=== PATIENT | male | born 1985 | race Caucasian/White ===

== ENCOUNTER 2020-07-13 17:45 | Inpatient (IN) | payer MEDICARE, OTHER ==
[~2020-07-13] VITALS: Ht 185.4 cm; Wt 127.0 kg
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
--- OUTSIDE RECORDS SUMMARY | ~2020-07-13 | XMS | Encounter Summary ---
Demographics + + + | Address | [address] | | | [place] [address] | + + + | Home Phone | | + + + | Preferred Language | Unknown | + + + | Marital Status | Single | + + + | Hindu Affiliation | Unknown | + + + | Race | White | + + + | Ethnic Group | Not or | + + + Author + + + | Author | [facility] | | | and [place] | + + + | Organization | [facility] | | | and [...] | | | | | [place] [address] | | + + + + + Care Team Providers + +------+ + | Care In Home Nanny Name | Role | Phone | + +------+ + | Chance Dudley MD | PCP | | + +------+ + Reason for Visit + + + | Reason | Comments | + + + | Medication Refill | | + + + Encounter Details +--------+--------+ + + + | Date | Type | Department | Care Team | Description | +--------+--------+ + + + | 06/29/ | Refill | [facility] | Chance Dudley, | Medication Refill | | 2019 | | [facility] | [address] | | | | | [address] | [place] | | | | | [place], [place] | [address] | | | | | [address] | | | | | | [phone] | | | +--------+--------+ + + + Social History + +-------+ [...] Comments | + + +---------+ + | No | | | | + + +---------+ + + + + | Sex Assigned at | Date Recorded | | | | + + + | Not on file | | + + + documented as of this encounter Functional Status + + + [...] + + documented as of this encounter Plan of Treatment +--------+---------+ + + + | Date | Type | Specialty | Care Team | Description | +--------+---------+ + + + | 07/22/ | Office | Family Medicine | Chance Dudley, | | | 2019 | Visit | | MD [address] | | | | | | [place] | | | | | | [address] | | | | | | | | +--------+---------+ + + + documented as of this encounter Visit Diagnoses Not on filedocumented in this encounter"
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
--- OUTSIDE RECORDS SUMMARY | ~2020-07-13 | XMS | Encounter Summary ---
Demographics + + + | Address | [address] | | | [place] [address] | + + + | Home Phone | | + + + | Preferred Language | Unknown | + + + | Marital Status | Single | + + + | Christian Affiliation | Unknown | + + + | Race | White | + + + | Ethnic Group | Not or | + + + Author + + + | Author | [facility] | | | and [place] | + + + | Organization | [facility] | | | [...] | | | | | [place] [address] | | + + + + + Care Team Providers + +------+ + | Care Wool Fleece Sorter Name | Role | Phone | + +------+ + | Cash Dudley MD | PCP | | + +------+ + Reason for Visit + +--------+ + | Reason | Onset | Comments | | | Date | | + +--------+ + | Appointment | 06/19/ | | | | 2012 | | + +--------+ + Encounter Details +--------+ + + + + | Date | Type | Department | Care Team | Description | +--------+ + + + + | 06/19/ | Telephone | [facility] | Cash Dudley, | Appointment | | 2012 | | MEDICINE [place] | [address] | | | | | [address] | [place], [place] | | | | | [place], [place] | [address] | | | | | [address] | | | | | | [phone] | | | +--------+ + + + + Social History + +-------+ +--------+------+ | Tobacco Use | Types | Packs/Day | Years | Date | | | | | Used | | + +-------+ +--------+------+ | Never Smoker | | | | | + +-------+ +--------+------+ + + +---------+ + | Alcohol Use | Drinks/Week | oz/Week | Comments | + + +---------+ + | Yes | | | Weekends | + + +---------+ + + + + | Sex Assigned at | Date Recorded | | | | + + + | Not on file | | + + + documented as of this encounter Miscellaneous Notes Telephone Encounter - Chaparrita Bruno - 06/22/2013 8:58 AM PDTLeft patient message to return our call. elephone Francine Ramirez - 06/21/2013 3:47 PM PDTCalled and left a message. Patient needs to s chedule a DM follow up 30 minutes and visit with Corine also. Francine Flores elephone Encounter - Samantha Nicole LPN - 06/21/2013 3:37 PM PDTCalled and notified patient. He was happy to reschedule so transferred call but then he hung up. Asked vest front presser to call patient.Electr onically signed by Samantha Taveras LPN at 06/21/2013 3:37 PM PDTTelephone Encounter - Raul Foster 06/20/2013 9:10 AM PDTCalled the patient and left a message to call back.Kwasi limay signed by Raul Foster at 06/20/2013 9:13 AM PDTTelephone Encounter - Cash Dudley MD - 06/19/2013 6:01 PM PDTDo you mind calling Stiven and checking in on him. Please ask him to reschedule. Ideally would like a time that he can also meet with Corine or Florinda to discu ss his prediabetes. Thanks, Saurabh Dudley MD elephone Encounter - Cahs Dudley MD - 06/19/2013 6:00 PM PDTMessage copied by CASH DUDLEY on [facility] 2012 1800 ------ Message from: EDIN GILLETTE Created: [facility] Jun 19, 2013 9421 Regarding: No show 06/19/13 : 89 1st no show Please advice what letter to send. Thank you documented in this encounter Plan of Treatment +--------+---------+ + + + | Date | Type | Specialty | Care Team | Description | +--------+---------+ + + + | 07/22/ | Office | Family Medicine | Cash Dudley, | | | 2019 | Visit | | [address] | | | | | | [place] | | | | | | [id number] | | | | | | | | +--------+---------+ + + + documented as of this encounter Visit Diagnoses Not on filedocumented in this encounter"
--- OUTSIDE RECORDS SUMMARY | ~2020-07-13 | XMS | Encounter Summary ---
Demographics + + + | Address | [address] | | | [place] [address] | + + + | Home Phone | | + + + | Preferred Language | Unknown | + + + | Marital Status | Single | + + + | Mandaeism Affiliation | Unknown | + + + | Race | White | + + + | Ethnic Group | Not or | + + + Author + + + | Author | [facility] | | | and [place] | + + + | Organization | [facility] | | | [...] | | | | | [place] [address] | | + + + + + Care Team Providers + +------+ + | Care Packing Line Worker Name | Role | Phone | + +------+ + | Chance Dudley MD | PCP | | + +------+ + Reason for Visit +---------+--------+ + | Reason | Onset | Comments | | | Date | | +---------+--------+ + | Results | 04/21/ | | | | 2016 | | +---------+--------+ + Encounter Details +--------+ + + + + | Date | Type | Department | Care Team | Description | +--------+ + + + + | 04/21/ | Telephone | [facility] | Nadia Claire, | Results | | 2017 | | MEDIC[facility] [place] | REHAB DEPARTMENT MANAGER [address] | | | | | [address] | [place], [place] | | | | | [place], [place] | [address] | | | | | [address] | | | | | | [phone] | | | +--------+ + + + [...] +---------+ + | Yes | | | Twice a month 10 | | | | | beers | + + +---------+ + + + + | Sex Assigned at | Date Recorded | | | | + + + | Not on file | | + + + documented as of this encounter Miscellaneous Notes Telephone Encounter - Sujatha Chaparro RN - 04/21/2017 10:12 AM PDTRelayed message to artem mars. He verbalized understanding. He is unable to schedule follow up now as he is going to [place] for a few weeks. Unsure when he will call back to schedule appointment. Routing to Dr. Octavia MCDONALD. 1 0:16 AM PDTTelephone Encounter - Nadia Claire ARNP - 04/21/2017 9:58 AM PDTPlease let Mr Kalyani Davila know that his blood test from yesterday showed elevated blood sugars that are now in the diabetic range. Please have him schedule with Dr. Dudley, as they also have other lab results to discuss. do cumented in this encounter Plan of Treatment +--------+---------+ + + + | Date | Type | Specialty | Care Team | Description | +--------+---------+ + + + | 07/22/ | Office | Family Medicine | Chance Dudley, | | | 2019 | Visit | | MD [address] | | | | | | [place] | | | | | | [id number] | | | | | | | | +--------+---------+ + + + documented as of this encounter Visit Diagnoses Not on filedocumented in this encounter"
--- OUTSIDE RECORDS SUMMARY | ~2020-07-13 | XMS | Encounter Summary ---
Demographics + + + | Address | [address] | | | [place] [address] | + + + | Home Phone | | + + + | Preferred Language | Unknown | + + + | Marital Status | Single | + + + | Faith Affiliation | Unknown | + + + | Race | White | + + + | Ethnic Group | Not or | + + + Author + + + | Author | [facility] | | | and [place] | + + + | Organization | [facility] | | | [...] | | | | | [place] [address] | | + + + + + Care Team Providers + +------+ + | Care Equal Opportunity Representative Name | Role | Phone | + +------+ + | Chance Dudley MD | PCP | | + +------+ + Reason for Visit + +--------+ + | Reason | Onset | Comments | | | Date | | + +--------+ + | Coordination Of Care | 07/18/ | | | | 2018 | | + +--------+ + Encounter Details +--------+ + + + + | Date | Type | Department | Care Team | Description | +--------+ + + + + | 07/18/ | Telephone | [facility] | Santi Mckeon | Coordination Of Care | | 2019 | | SURGERY [address] | [address] | | | | | [address] [place], [place] | [address] [facility] | | | | | [address] | [place] [address] | | | | | [phone] | [phone] | | | | | | | | +--------+ + + + [...] this encounter Miscellaneous Notes Telephone Encounter - No Llanes RN - 07/19/2019 9:22 AM REAI called patient today as requested and left a detailed message on his voicemail with MRI appointment information. I advised patient to call with any questions or concerns. elephone Encounter - No Llanes RN - 07/18/20 5:17 PM REAI called [facility] Radiology and spoke with eDbby to schedule MRI for patient. Ne xt available appointment is 08/17/19 at 12:30 pm with check in at 12:00 pm. I read back appoi ntment information to Debby and she verbalized correct and confirmed. I called patient and advised him of appointment information. He states he is currently at [facility] and unable to write the appointment information down. I advised patient that I can call him back in the morning when he is at home and confirm appointment information with him. Abril leos verbalized understanding and agreement. documented in this encounter Plan of Treatment [...] [place] | | | | | | [address] | | | | | | | | +--------+---------+ + + + documented as of this encounter Visit Diagnoses Not on filedocumented in this encounter"
--- OUTSIDE RECORDS SUMMARY | ~2020-07-13 | XMS | Clinical Summary ---
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 | | | | | | MEDICAL | | | | | | CENTER - | | | | | | LABORATORY | | + +-------+ + + + + + | Specimen | + + | Blood | + + + + + + + | Performing | Address | City/State/Zipcode | Phone Number | | Organization | | | | + + + + + | [facility] | [address] | [place] | [phone] | | [facility] | | [address] | | | - LABORATORY | | | | + + + + + Extra Plain Red Top Tube (04/20/2020 2:32 AM PDT) + +-------+ + + + | Component | Value | Ref Range | Performed | Pathologist | | | | | At | Signature | + +-------+ + + + | Extra Plain | Done | | [facility] | | | Red Top | | | [facility] | | | Tube | | | MEDICAL | | | | | | CENTER - | | | | | | LABORATORY | | + +-------+ + + + + + | Specimen | + + | Blood | + + + + + + + | Performing | Address | City/State/Zipcode | Phone Number | | Organization | | | | + + + + + | [facility] | [address] | [place] | [phone] | | [facility] | | [address] | | | - LABORATORY | | | | + + + + + Extra Lavender Top Tube (04/20/2020 2:32 AM PDT) + +-------+ + + + | Component | Value | Ref Range | Performed | Pathologist | | | | | At | Signature | + +-------+ + + + | Extra | Done | | [facility] | | | Lavender | | | [facility] | | | Top Tube | | | MEDICAL | | | | | | CENTER - | | | | | | LABORATORY | | + +-------+ + + + + + | Specimen | + + | Blood | + + + + + + + | Performing | Address | City/State/Zipcode | Phone Number | | Organization | | | | + + + + + | [facility] | [address] | [place] | [phone] | | [facility] | | [address] | | | - LABORATORY | | | | + + + + + Extra Gold Top Tube (04/20/2020 2:32 AM PDT) + +-------+ + + + | Component | Value | Ref Range | Performed | Pathologist | | | | | At | Signature | + +-------+ + + + | Extra Gold | Done | | [facility] | | | Top Tube | | | [facility] | | | | | | MEDICAL | | | | | | CENTER - | | | | | | LABORATORY | | + +-------+ + + + + + | Specimen | + + | Blood | + + + + + + + | Performing | Address | City/State/Zipcode | Phone Number | | Organization | | | | + + + + + | [facility] | [address] | [place] | [phone] | | [facility] | | [address] | | | - LABORATORY | | | | + + + + + Procalcitonin (04/20/2020 2:18 AM PDT) + + + + + + | Component | Value | Ref Range | Performed | Pathologist | | | | | At | Signature | + + + + + + | Procalciton | <0.05 | <=0.50 ng/mL | [facility] | | | in | | | [facility] | | | | | | MEDICAL | | | | | | CENTER - | | | | | | LABORATORY | | + + + + + + | Comment | Comment: < 0.50 | | [facility] | | | | ng/mL:Procalcitonin | | [facility] | | | | levels below 0.50 ng/mL | | MEDICAL | | | | on the first day of | | CENTER - | | | | admission represents a | | LABORATORY | | | | low risk for progression | | | | | | to severe sepsis and/or | | | | | | septic shock, however | | | | | | these do not exclude an | | | | | | infection, because | | | | | | localized infections | | | | | | (without systemic signs) | | | | | | may also be associated | | | | | | with such low levels. | | | | | | > 2.00 | | | | | | ng/mL:Procalcitonin | | | | | | levels above 2.00 ng/mL | | | | | | on the first day of | | | | | | admission represents a | | | | | | high risk for | | | | | | progression to severe | | | | | | sepsis and/or septic | | | | | | shock. If the | | | | | | procalcitonin | | | | | | measurement is performed | | | | | | shortly after the | | | | | | systemic infection | | | | | | process has started | | | | | | (usually less than 6 | | | | | | hours), these values may | | | | | | still be low. As | | | | | | various non-infectious | | | | | | conditions are known to | | | | | | induce procalcitonin as | | | | | | well, procalcitonin | | | | | | levels between 0.50 | | | | | | ng/mL and 2.00 ng/mL | | | | | | should be reviewed | | | | | | carefully to take into | | | | | | account the specific | | | | | | clinical background and | | | | | | condition(s) of the | | | | | | individual patient. | | | | + + + + + + + + | Specimen | + + | Blood | + + + + + + + | Performing | Address | City/State/Zipcode | Phone Number | | Organization | | | | + + + + + | [facility] | [address] | [place] | [phone] | | [facility] | | [address] | | | - LABORATORY | | | | + + + + + PTT (04/20/2020 2:18 AM PDT) + +-------+ + + + | Component | Value | Ref Range | Performed | Pathologist | | | | | At | Signature | + +-------+ + + + | aPTT | 28 | 22 - 36 seconds | [facility] | | | | | | [facility] | | | | | | MEDICAL | | | | | | CENTER - | | | | | | LABORATORY | | + +-------+ + + + + + | Specimen | + + | Blood | + + + + + + + | Performing | Address | City/State/Zipcode | Phone Number | | Organization | | | | + + + + + | [facility] | [address] | [place] | [phone] | | [facility] | | [address] | | | - LABORATORY | | | | + + + + + Shannanime INR (04/20/2020 2:18 AM PDT) + + + + + + | Component | Value | Ref Range | Performed | Pathologist | | | | | At | Signature | + + + + + + | Prothrombin | 13.6 | 11.3 - 13.9 | [facility] | | | Time | | seconds | [facility] | | | | | | MEDICAL | | | | | | CENTER - | | | | | | LABORATORY | | + + + + + + | INR | 1.0Comment: Usual Oral | 0.9 - 1.1 | [facility] | | | | Anticoagulation Range: | | [facility] | | | | 2.0 - 3.0High | | MEDICAL | | | | Level Oral | | CENTER - | | | | Anticoagulation Range: | | LABORATORY | | | | 2.5 - 3.5 | | | | + + + + + + + + | Specimen | + + | Blood | + + + + + + + | Performing | Address | City/State/Zipcode | Phone Number | | Organization | | | | + + + + + | [facility] | [address] | [place] | [phone] | | [facility] | | [address] | | | - LABORATORY | | | | + + + + + Type and Screen (04/20/2020 2:18 AM PDT) + + + + + + | Component | Value | Ref Range | Performed | Pathologist | | | | | At | Signature | + + + + + + | ABO | A | | [facility] | | | | | | [facility] | | | | | | MEDICAL | | | | | | CENTER - | | | | | | BLOOD BANK | | + + + + + + | Rh Type | Positive | | [facility] | | | | | | [facility] | | | | | | MEDICAL | | | | | | CENTER - | | | | | | BLOOD BANK | | + + + + + + | Antibody | Negative | | [facility] | | | Screen | | | [facility] | | | | | | MEDICAL | | | | | | CENTER - | | | | | | BLOOD BANK | | + + + + + + + + | Specimen | + + | Blood | + + + + + + + | Performing | Address | City/State/Zipcode | Phone Number | | Organization | | | | + + + + + | [facility] | [address] | [place] | | | [facility] | | [address] | | | - BLOOD BANK | | | | + + + + + Lipase (04/20/2020 2:18 AM PDT) + + + + + + | Component | Value | Ref Range | Performed | Pathologist | | | | | At | Signature | + + + + + + | Lipase | 39Comment: New method in | 12 - 53 U/L | [facility] | | | | use as of January 24, | | [facility] | | | | 2018. Check reference | | MEDICAL | | | | range for changes.Some | | CENTER - | | | | analytes show | | LABORATORY | | | | significant variation | | | | | | from the previous | | | | | | method.It may be | | | | | | necessary to set a new | | | | | | baseline for this | | | | | | analyte. | | | | + + + + + + + + | Specimen | + + | Blood | + + + + + + + | Performing | Address | City/State/Zipcode | Phone Number | | Organization | | | | + + + + + | [facility] | [address] | [place], [place] | [phone] | | [facility] | | [address] | | | - LABORATORY | | | | + + + + + from Last 3 Months Insurance + +--------+ +--------+ +---------+--------+ | Payer | Benefi | Subscriber | Effect | Phone | Address | Type | | | t Plan | ID | rita | | | | | | / | | Dates | | | | | | Group | | | | | | + +--------+ +--------+ +---------+--------+ | MEDICARE | MEDICA | [id number] | | [phone] | | Medica | | | RE | | 009-Pr | 5 | | re | | | PART A | | esent | | | | | | AND B | | | | | | + +--------+ +--------+ +---------+--------+ | [employer] | [employer] | [id number] | 11/28/19 | [phone] | | Medica | | MEDICAID HMO | HEALTH | | 20-Pre | 1 | | id | | | MDCD | | sent | | | | | | [place] | | | | | | + +--------+ +--------+ +---------+--------+ + +--------+ +--------+ + + | Guarantor Name | Accoun | Relation to | Date | Phone | Billing Address | | | t Type | Patient | of | | | | | | | | | | + +--------+ +--------+ + + | Stiven Davila | Person | Self [birth year] | NEED ADDRESS | | | al/Fam | | 1984 | [phone] | [place] [address] | | | cristin | | | 7 (Home) | | + +--------+ +--------+ + + | Stiven Davila | Third | Self | [birth year] | | NEED ADDRESS | | | Republican | | 1984 | [phone] | [place] [address] | | | Liabil | | | 7 (Home) | | | | ity | | | | | + +--------+ +--------+ + + | Stiven Davila | Third | Self | [birth year] | | [address] | | | Republican | | 1984 | [phone] | [place] [address] | | | Liabil | | | 7 (Home) | | | | ity | | | | | + +--------+ +--------+ + + Advance Directives + + + + + | Type | Date Recorded | Patient | Explanation | | | | Leather Tooler | | + + + + + | Power of | | | | | General Ledger Bookkeeper | | | | + + + + + | Advance | 10/08/2016 | | | | Directive | 12:48 PM | | | + + + + + | Advance | 06/24/2019 11:10 | | | | Directive | AM | | | + + + + + + + + + + | Code Status | Date | Date | Comments | | | Activated | Inactivated | | + + + + + | Full Code | 12/02/2019 | 12/04/2019 | | | | 5:02 PM | 12:00 PM | | + + + + + + + + +---+ | | | | | + + + +---+ | Full Code | 06/24/2019 | 06/25/2019 | | | | 11:09 AM | 7:11 PM | | + + + +---+ + + + +---+ | | | | | + + + +---+ | Full Code | 10/08/2016 | 10/08/2016 | | | | 3:42 PM | 7:55 PM | | + + + +---+
--- OUTSIDE RECORDS SUMMARY | ~2020-07-13 | XMS | Encounter Summary ---
Demographics + + + | Address | [address] | | | [place] [address] | + + + | Home Phone | | + + + | Preferred Language | Unknown | + + + | Marital Status | Single | + + + | Anglican Affiliation | Unknown | + + + | Race | White | + + + | Ethnic Group | Not or | + + + Author + + + | Author | [facility] | | | and [place] | + + + | Organization | [facility] | | | [...] | | | | | [place] [address] | | + + + + + Care Team Providers + +------+ + | Care Needle Loom Operator Helper Name | Role | Phone | + +------+ + | Chance Dudley MD | PCP | | + +------+ + Reason for Visit +---------+--------+ + | Reason | Onset | Comments | | | Date | | +---------+--------+ + | Results | 12/04/ | ABHISHEK NOV 2019 GASTRITIS/HYPERPLASTIC POLYP | | | 2019 | | +---------+--------+ + Encounter Details +--------+ + + + + | Date | Type | Department | Care Team | Description | +--------+ + + + + | 12/04/ | Telephone | [facility] | Keren Luna | Results (EGD NOV | | 2019 | | GASTROENTEROLOGY | MD [address]Ays[address] | 2019 | | | | [address] [place] | [address] | GASTRITIS/HYPERPLAST | | | | [address] [place] | [place] | IC POLYP) | | | | [address] | [address] | | | | | [phone] | | | +--------+ + + + [...] this encounter Miscellaneous Notes Telephone Encounter - Payton Hernandez CMA - 12/05/2019 9:25 AM PSTPatient notified of res ults, verbalized understanding. Call transferred to the commercial front load driver to schedule patient for a 3 month follow up with Fanny Alexander, NPElectronically signed by MYNOR Juarez t 12/05/2019 9:27 AM PSTTelephone Encounter - Payton Hernandez CMA - 12/05/2019 7:53 AM PS TSecond voicemail left for patient to call back for results. elephone Encounter - Payton Hernandez CMA - 12/04/19 4:35 PM PSTLeft voicemail for patient to call back for pathology results for the Egd per formed on 12/03/2019. Per Dr. Luna, the stomach biopsy showed gastritis, and the polyp was h yperplastic. H.pylori was negative. She recommends patient be on Protonix 40 mg BID for 7 da ys, then once daily for 3 months. (script sent to [facility] in [place]). Patient is to follow up in the GI clinic in 3 months. Placed in recall. elephone Encounter - Keren Luna MD - 05/2020 4:27 PM PSTPLEASE CALL PT. HIS BIOPSIES SHOWS GASTRITIS AND HE HAD A BENIGN STOMACH POLYP REMOVED. HE NEEDS PROTONIX BID FOR 7 DAYS AND THEN ONCE DAILY FOR 3 MOS. FOLLOW UP IN 3 MOS IN GI CLINIC. Electronically signed by Keren Luna MD at 12/04 4:31 PM PSTdocumented in this encounter Plan of Treatment +--------+---------+ + + + | Date | Type | Specialty | Care Team | Description | +--------+---------+ + + + | 07/22/ | Office | Family Medicine | Chance Dudley, | | | 2019 | Visit | | MD Manolo [address] [facility] | | | | | | [place] | | | | | | [id number] | | | | | | | | +--------+---------+ + + + documented as of this encounter Visit Diagnoses Not on filedocumented in this encounter"
--- OUTSIDE RECORDS SUMMARY | ~2020-07-13 | XMS | Encounter Summary ---
Demographics + + + | Address | [address] | | | [place] [address] | + + + | Home Phone | | + + + | Preferred Language | Unknown | + + + | Marital Status | Single | + + + | Religion Affiliation | Unknown | + + + | Race | White | + + + | Ethnic Group | Not or | + + + Author + + + | Author | [facility] | | | and [place] | + + + | Organization | [facility] | | | [...] [place] | | | | | [place] [address] | | + + + + + Care Team Providers + +------+ + | Care Continuous Yarn Dyeing Machine Operator Name | Role | Phone | + +------+ + | Chance Dudley MD | PCP | | + +------+ + Encounter Details +--------+ + + + + | Date | Type | Department | Care Team | Description | +--------+ + + + + | 04/21/ | Orders Only | [facility] | Christoph Norman, | Learning disability | | 2017 | | LABORATORY SERVICE | MD Manolo [address] [facility] | | | | | [place] [address] | [place] | | | | | [place] | [address] | | | | | [address] | | | | | | [phone] | | | +--------+ + + + [...] [place] | | | | | | [address] | | | | | | | | +--------+---------+ + + + documented as of this encounter Visit Diagnoses + + | Diagnosis | + + | Learning disability Other specific developmental learning difficulties | + + documented in this encounter"
--- OUTSIDE RECORDS SUMMARY | ~2020-07-13 | XMS | Encounter Summary ---
Demographics + + + | Address | [address] | | | [place] [address] | + + + | Home Phone | | + + + | Preferred Language | Unknown | + + + | Marital Status | Single | + + + | Episcopalian Affiliation | Unknown | + + + | Race | White | + + + | Ethnic Group | Not or | + + + Author + + + | Author | [facility] | | | and [place] | + + + | Organization | [facility] | | | [...] [place] | | | | | [place] [address] | | + + + + + Care Team Providers + +------+ + | Care Data Migration Lead Name | Role | Phone | + +------+ + | Chance Dudley MD | PCP | | + +------+ + Reason for Visit + + + | Reason | Comments | + + + | ED Follow-up | was diagnosed with PE | + + + Encounter Details +--------+---------+ + + + | Date | Type | Department | Care Team | Description | +--------+---------+ + + + | 12/13/ | Office | [facility] | Chance Dudley, | Other acute | | 2019 | Visit | [facility] | [address] | pulmonary embolism | | | | [address] | [place] | without acute cor | | | | [place] | [address] | pulmonale (HCC) | | | | [phone] | | (Primary Dx); | | | | [phone] | | Pulmonary embolism, | | | | | | unspecified | | | | | | chronicity, | | | | | | unspecified | | | | | | pulmonary embolism | | | | | | type, unspecified | | | | | | whether acute cor | | | | | | pulmonale present | | | | | | ([facility]); S/P | | | | | | laparoscopic sleeve | | | | | | gastrectomy; | | | | | | Aviva-Toro tear; | | | | | | Acute superficial | | | | | | gastritis with | | | | | | hemorrhage; | | | | | | Klinefelter | | | | | | syndrome; Gross | | | | | | hematuria; | | | | | | Hypogonadism in male | +--------+---------+ + + + Social History [...] + + + | Blood Pressure | 98/58 | 12/13/2019 11:30 AM | | | | | PST | | + + + + + | Pulse | 70 | 12/13/2019 11:30 AM | | | | | PST | | + + + + + | Temperature | 36.8 C (98.2 F) | 12/13/2019 11:30 AM | | | | | PST | | + + + + + | Respiratory Rate | 16 | 12/13/2019 11:30 AM | | | | | PST | | + + + + + | Oxygen Saturation | 99% | 12/13/2019 11:30 AM | | | | | PST | | + + + + + | Inhaled Oxygen | - | - | | | Concentration | | | | + + + + + | Weight | 123.3 kg (271 lb | 12/13/2019 11:30 AM | | | | 13.2 oz) | PST | | + + + + + | Height | - | - | | + + + + + | Body Mass Index | 35.86 | 12/02/2019 11:11 AM | | | | | PST | | + + + + + [...] Instructions Patient Instructions Chance Dudley MD - 12/13/2019 11:30 AM PST INCREASE the warfarin to 1.5 pills (7.5 mg) every night. Continue to take the Lovenox injections twice daily. You will need to continue this inject ion until your INR (warfarin level) is between 2-3. You will need to remain on warfarin for 3 months total, then we can stop it. Pulmonary Embolism (PE) A pulmonary embolus is most often due to a blood clot that develops in a deep vein of the l eg (deep vein thrombosis). If that clot, breaks loose and travels to the lung, it is called a pulmonary embolism (PE). This can cut off theflow of blood in the lungs. A blood clot in the lungs is a medical emergency and may cause . Healthcare providers use the termvenous thromboembolism (VTE)to describe these 2 condit ions: deep vein thrombosis andpulmonary embolism.They use the term VTE because the 2 con ditions are very closely related. And, because their prevention and treatment are also close ly related. A pulmonary embolism occurs when a blood clot forms in a vein and travels to the lungs. How is pulmonary embolism diagnosed? Your healthcare provider examines you and asks about yoursymptoms and health history. You may also have one or more of the following: Blood teststo check for blood clotting or other problems Imaging teststolook for clots in the veins or lung Electrocardiography (ECG)to test how well the heart is working How is pulmonary embolism treated? Blood-thinning medicines (anticoagulants).These medicines thin the blood. They may be given as a pill,as an injection, or through a tube into a vein(intravenous orIV). Bloo d thinners help prevent more blood clots from forming. They also help toprevent an existin g clot from getting larger. Thrombolysis.Thrombolytic medicines areused to quickly dissolve a blood clot. A long , narrow tube (catheter) is used to deliver medicine directly to the clot.Thrombolytic med icines increase the risk of bleeding so they are used very carefully. Inferior vena cava (IVC) filter surgery.The vena cava is the body s largest vein. It carries blood from the body to the heart. A small filter traps blood clots in the lower bod y and prevents them from traveling to the lungs. The filter is inserted into the vein throug h a catheter. The filter may be used ifblood thinners cannot be taken or if they don't wor k. Pulmonary embolectomy.This is a procedure to remove a blood clot in the lungs. It may be done with surgery or with a catheter inserted in the body. It may be done when other karyna tments aren't safe or don't work. What are the long-term concerns? With treatment, blood clots are usually dissolved or removed. Some treatments can even help prevent future clots. Buthaving a PE can put you at risk for another life-threatening blo od clot. So, you will likely need to take anticoagulants to help keep blood clots from formi ng again. You may need to take this medicine for months or years. You may also need to make lifestyle changes. This may include getting more active and eatin g healthier.You mayneed to wear elastic (compression) stockings andand take breaks on long trips. Call 911 Call 911 or get emergency help if you have symptoms of a blood clot that has traveled to [facility]. The symptoms include: Chest pain Trouble breathing Coughing (may cough up blood) Fainting Fast heartbeat Sweating Call 911 if you have heavy or uncontrolled bleeding. When to call your healthcare provider Call your healthcare provider if you have swelling or pain in your leg, arm, or other area. These are symptoms of a blood clot. You may have bleeding if you take medicine to help prevent blood clots. Call your healthcare provider if you have signs or symptoms of bleeding. This includes: Blood in the urine Bleeding with bowel movements Bleeding from the nose, gums, a cut, or vagina Date Last Reviewed: 12/29/201619993371-5501 [employer]. [address] [place] [address]. All righ ts reserved. This information is not intended as a substitute for professional medical care. Always follow your healthcare professional's instructions. What to Know When Taking Warfarin Warfarin is a medicine that controls how your blood clots. It is used to help prevent blood clots that may cause serious health problems. These problems include heart attack (myocardi al infarction), stroke, a blockage in an artery or vein (thrombus), or a blood clot that tra vels to the lungs (pulmonary embolism). Before you start taking this medicine, tell your healthcare provider if you have any of the se conditions: Stomach ulcer now or in the past Vomited blood or had bloody stools (black or red color) Aneurysm, pericarditis, or pericardial effusion Blood disorder Recent surgery, stroke, mini-stroke, or spinal puncture Kidney or liver disease, uncontrolled high blood pressure, diabetes, vasculitis, heart f ailure, lupus or other collagen-vascular disease, or high cholesterol You are or You are younger than 18 years old Recent or planned dental procedure Although warfarin reduces the risk for blood clots, it increases your risk of bleeding. Bec ause of this, you must take the medicine exactly as you are told by your healthcare provider . You will have blood tests often to check the level of warfarin in your blood. It is importa nt to have just the right amount to balance preventing blood clots and causing excessive ble eding. If the level is too low, you are at risk for developing a blood clot. If it's too hig h, you are at risk for bleeding. Make sure you keepall scheduled appointments for blood te sting. If you don t, you will be at risk for bleeding problems. You also need to protect y ourself from injury that may cause bleeding such as a fall or hitting your head. Follow these tips Take this medicine at the same time each day. Take it with a full glass of water, with o r without food. Make sure you know what to do if you miss a dose. If you are not sure what to do, call y our healthcare provider or pharmacist. Don't take more warfarin than you were told to. Tell all of your providersincluding your dentist that you take warfarin. If you will b e taking warfarin for quite a while, carry an ID card or get a Medic-Alert bracelet. This wi ll alert medical staff in case you aren t able to do so yourself. Also carry with you the name and number of the person to contact in case of an emergency. Keep your appointments for regular blood tests to measure the effects of warfarin. Your healthcare provider may need to change your dose based on the results of your blood test. Fo llow your provider s advice exactly about how to take this medicine. Don't stop taking the medicine without talking with your provider. Monitoring your PT/INR blood levels You will need to have a blood test called a PT/INR regularly. PT stands for pro thrombin. I NR stands for international normalized ratio. The PT/INR blood test is done to make sure you are getting the right dose of this medicine. The PT/INR test tells your healthcare provider how your blood is clotting. Prothrombin time, commonly referred to as pro time or PT, measu res the time it takes for blood to clot. International normalized ratio or INR is a way to c ompare results of the PT tests done at different labs. Go for your blood (PT/INR) tests as often as directed. Note that diet and medicines can affect your PT/INR level. Your next PT/INR blood draw is due on ___December 17 (date) by _FLORENCE Cross. You will then have your warfarin level managed by FLORENCE Araujo. Follow up with your healthcare provider or as advised by his or her staff. It usually ta kes a few hours for your doctor to get the results of your clotting tests. Call to get your lab results and find out if your provider needs to make further changes to your warfarin dos e. If your labs (PT/INR) are drawn at a location other than your provider's office, marc stahl to tell your provider as soon as you get your lab results. What to do at home 1. Prevent injuries and bleeding: ? Don't go barefoot. Always wear shoes. ? Don't trim corns or calluses yourself. ? Use an electric razor to shave instead of a manual one. ? Use a soft-bristled toothbrush and waxed dental floss. 2. Some medicines can affect your blood clotting. Always talk with your healthcare provider before stopping, starting, or changing any prescription or zqjv-dqh-xvopuir (OTC) medicines . This includes herbal medicines and vitamins. Talk with your healthcare provider about the following medicines: ? Some antibiotics. This is critical because some common antibiotics can cause severe bleed ing if you take them along with warfarin. These antibiotics include ciprofloxacin and trimet hoprim-sulfamethoxazole. ? Some heart medicines ? Cimetidine ? Aspirin or other anti-inflammatory medicines, such as ibuprofen, naproxen, ketoprofen, or other arthritis medicines ? Some medicines for depression, cancer, HIV (protease inhibitors), diabetes, seizures, gou t, high cholesterol, or thyroid replacement ? Vitamins containing Vitamin K ? Herbal products such as ginkgo, Q10, garlic, or Gaston's wort 3. Don't make major changes in your diet. Consuming high amounts of foods containing vitami n K can reduce the effectiveness of your warfarin. Keep your diet steady Keep your diet pretty much the same each day. That s because many foods contain vitamin K . Vitamin K helps your blood clot. So eating overly high amounts of foods that contain vitam in K can affect the way warfarin works. You don t need to stay away from foods that have v itamin K. But keep the amount of them you eat steady (about the same day to day). If you julienne nge your diet for any reason, such as for illness or to lose weight, tell your healthcare pr ovider. Foods that have vitamin K include asparagus, avocado, broccoli, cabbage, kale, spinach, and some other leafy green vegetables. Oils such as soybean, canola, and olive oils also con tain vitamin K. Other food products can affect the way warfarin works in your body: ? Food products that may affect blood clotting include cranberries and cranberry juice, fis h oil supplements, garlic, jaimie, licorice, and turmeric. ? Herbs used in herbal teas or supplements can also affect blood clotting. Keep the amount of herbal teas and supplements you use steady. ? Alcohol can increase the effect of warfarin in your body. Talk with your healthcare provider if you have concerns about these or other food products and their effects on warfarin. When to call your healthcare provider Warfarin increases your risk of bleeding. Call your healthcare provider right away before y ou take your next dose of warfarin if you have any of these problems: Bleeding that doesn t stop in10 minutes. This might be from a bloody nose or a cut, for example. A qtmhwvo-brfo-czezdc period or bleeding between periods Coughing or throwing up blood or something that looks like coffee grounds Nausea, bloating,or diarrhea Bleeding hemorrhoids Dark red or brown urine Red or black tarry stools Red or cqznb-gea-zhri marmolejo on the skin that get larger A fever or an illness that gets worse Dizziness, headache, weakness, or fatigue Chest pain or trouble breathing A serious fall or a blow to the head Swelling or pain after an injury or at an injection site Bleeding gums after brushing your teeth What to watch for If you have any of the following allergic reactions, call your doctor right away or go to [facility]. Rash Itching Swelling Trouble swallowing or breathing [NOTE: This information topic may not include all directions, precautions, medical conditio ns, medicine/food interactions, and warnings for this medicine. Check with your doctor, nurs e, or pharmacist for any questions that you may have.] Date Last Reviewed: 04/28/201619994781-8018 [employer]. [address] [place] [address]. All righ ts reserved. This information is not intended as a substitute for professional medical care. Always follow your healthcare professional's instructions. documented in this encounter Progress Notes Chance Dudley MD - 12/13/2019 11:30 AM PSTFormatting of this note might be different fr om the original. Subjective: Patient ID: Stiven Davila is a 34 y.o. male who is here today for ED Follow-up (was d iagnosed with PE). Accompanied by mom HPI He started the Lovenox and warfarin yesterday. Tolerating well. He already feels a lot be tter. He is no longer feeling short of breath. No longer having pleuritic chest pain. No fever, hematemesis, melena, hematochezia, nosebleeds, abnormal bleeding No family h/o of DVT or clotting disorders. Patient's medications, allergies, past medical, surgical, social and family histories were obtained and reviewed as appropriate. Current Outpatient Medications on File Prior to Visit Medication Sig Dispense Refill acyclovir (ZOVIRAX) 400 MG tablet take 1 tablet by mouth five times a day AT FIRST SIGN S OF COLD SORE OUTBREAK 25 tablet 2 enoxaparin (LOVENOX) 120 mg/0.8 mL injection Inject 0.8 mLs under the skin every 12 pedro rs for 7 days. 14 Syringe 0 Multiple Vitamins-Minerals (BARIATRIC MULTIVITAMINS/IRON PO) Take 1 tablet by mouth Marika ly. Chewables. For post-bariatric surgery nystatin (MYCOSTATIN) 947635 UNIT/GM powder Apply 1 Application topically 2 times daily . ondansetron (ZOFRAN ODT) 4 mg disintegrating tablet Take 1 tablet by mouth every 8 hour s as needed for Nausea or Vomiting. 20 tablet 0 pantoprazole (PROTONIX) 40 mg tablet Take 1 tablet by mouth 2 times daily (before meals ) for 7 days, THEN 1 tablet every morning (before breakfast) for 90 days. 104 tablet 0 testosterone 12.5 mg/1.25 g actuation (1%) gel Apply 4 Act topically Daily. 75 g 2 warfarin (COUMADIN) 5 mg tablet Take 1 tablet by mouth Daily for 30 days. Take 1 tablet daily for 30 days. 30 tablet 0 Review of Systems Objective: BP 98/58 | Pulse 70 | Temp 36.8 C (98.2 F) (Temporal) | Resp 16 | Wt 123.3 kg (271 lb 13.2 oz) | SpO2 99% | BMI 35.86 kg/m Physical Exam Constitutional: Very pleasant, well developed, NAD Cardiovascular: Normal rate, regular rhythm, normal heart sounds and intact distal pulses. Exam reveals no gallop and no friction rub. No murmur heard. Pulmonary/Chest: Breath sounds normal. No respiratory distress. He has no wheezes. He has n o rales. Musculoskeletal: General: No tenderness (no calf tenderness) or edema. Office Visit on 12/13/2019 Component Date Value Ref Range Status INR, POC 12/13/2019 1.0 0.9 - 1.2 Final 12.4 Instrument ID 12/13/[id number] PE IMPRESSION: Small burden of pulmonary emboli to right pulmonary artery lobar, segmental, and subsegment al branches. Mild gynecomastia. Dictated and Signed by: Les Garcia MD Electronically signed: 12/11/2019 7:56 PM Assessment & Plan: 1. Other acute pulmonary embolism without acute cor pulmonale (HCC): I am considering this a provoked PE since he did not have signs of PE on CT-PE prior to admission and developed t he PE after admission. Possible that the testosterone contributed, but this seems less like ly. No family history of DVT or clotting disorder. - Per pharmacy's recommendations "available evidence on efficacy of DOAC use in this patie nt population is sparse. Eliquis absorption may be altered in patients who have had bariatri c surgery that may lead to decreased efficacy. Therefore, the recommended anticoagulation of choice at this time (until more data is available) would be Warfarin." - Will increase warfarin to 7.5 mg nightly - Continue Lovenox twice daily until INR therapeutic - Greatly appreciate Nadia and Stefan's assistance - He was educated on PE, lovenox, warfarin - including diet, drug interactions, warning si gns. - warfarin (COUMADIN) 5 mg tablet; Take 1.5 tablets by mouth Daily for 89 days. Take 1 tabl et daily for 30 days. Dispense: 45 tablet; Refill: 2 4. Aviva-Toro tear, gastritis: Hospital records reviewed with him. He was worried that this tear represented a perforated esophagus. Reassurance provided. - Avoid alcohol - Continue PPI - Educated on warning signs 6. 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 Gross hematuria: UA negative - He will monitor for bleeding - Repeat UA in ~4 weeks Return in about 4 days (around 12/17/2019) for Pulmonary Embolism and INR check. with Daquan browning and 2-4 weeks with me. Saurabh Dudley MD docu mented in this encounter Plan of Treatment +--------+---------+ + + + | Date | Type | Specialty | Care Team | Description | +--------+---------+ + + + | 07/22/ | Office | Family Medicine | Chance Dudley, | | | 2019 | Visit | | MD [facility] | | | | | | [place] | | | | | | [address] | | | | | | | | +--------+---------+ + + + + +------+--------+ + + | Name | Type | Priori | Associated Diagnoses | Order Schedule | | | | ty | | | + +------+--------+ + + | CBC no Differential | Lab | Routin | Other acute | 1 Occurrences | | | | e | pulmonary embolism | starting 12/13/2019 | | | | | without acute cor | until 12/13/2020 | | | | | pulmonale (HCC) | | | | | | Aviva-Toro tear | | | | | | Acute superficial | | | | | | gastritis with | | | | | | hemorrhage | | | | | | Klinefelter syndrome | | + +------+--------+ + + | Basic Metabolic | Lab | Routin | Other acute | 1 Occurrences | | Panel | | e | pulmonary embolism | starting 12/13/2019 | | | | | without acute cor | until 12/13/2020 | | | | | pulmonale (HCC) | | | | | | Klinefelter syndrome | | + +------+--------+ + + | Testosterone, Total | Lab | Routin | Klinefelter | 1 Occurrences | | | | e | syndrome | starting 12/13/2019 | | | | | Hypogonadism in male | until 12/12/2020 | + +------+--------+ + + documented as of this encounter Procedures + +--------+ + + + | Procedure Name | Priori | Date/Time | Associated Diagnosis | Comments | | | ty | | | | + +--------+ + + + | POCT FINGERSTICK INR | Routin | 12/13/2019 | Other acute | Results for this | | | e | 11:31 AM | pulmonary embolism | procedure are in the | | | | PST | without acute cor | results section. | | | | | pulmonale (HCC) | | + +--------+ + + + documented in this encounter Results POC Fingerstick INR (12/13/2019 11:31 AM PST) + + + + + + | Component | Value | Ref Range | Performed | Pathologist | | | | | At | Signature | + + + + + + | INR, POC | 1.0Comment: 12.4 | 0.9 - 1.2 | [facility] | | | | | | [facility] | [facility] | | | | [facility] | | + + + + + + | Instrument | [id number] | | [facility] | | | ID | | | [facility] | | [facility] | | | | [facility] | | + + + + + + + + | Specimen | + + | Blood | + + + + + + + | Performing | Address | City/State/Zipcode | Phone Number | | Organization | | | | + + + + + | [facility] | [address] | [place] [address] | [phone] | | [facility] | | | | | [facility] | | | | + + + + + documented in this encounter Visit Diagnoses + + | Diagnosis | + + | Other acute pulmonary embolism without acute cor pulmonale (HCC) - Primary | + + | Pulmonary embolism, unspecified chronicity, unspecified pulmonary embolism type, | | unspecified whether acute cor pulmonale present (HCC) | + + | S/P laparoscopic sleeve gastrectomy | + + | 

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
--- OUTSIDE RECORDS SUMMARY | ~2020-07-13 | XMS | Encounter Summary ---
Demographics + + + | Address | [address] | | | [place] [address] | + + + | Home Phone | | + + + | Preferred Language | Unknown | + + + | Marital Status | Single | + + + | Hinduism Affiliation | Unknown | + + + | Race | White | + + + | Ethnic Group | Not or | + + + Author + + + | Author | [facility] | | | and [place] | + + + | Organization | [facility] | | | and [place] | + + + | Address | Unknown | + + + | Phone | Unavailable | + + + Support + + + + + | Name | Relationship | Address | Phone | + + + + + | Mabel Eisenberg | ECON | [address] | | | | | [place] [address] | | + + + + + Care Team Providers + +------+ + | Care Bending Machine Set Up Operator Name | Role | Phone | + +------+ + | Chance Dudley MD | PCP | | + +------+ + Reason for Visit Auth/Cert +--------+--------+ + + + + | Status | Reason | Specialty | Diagnoses / | Referred By | Referred To | | | | | Procedures | Contact | Contact | +--------+--------+ + + + + | | | | Diagnoses | | Blade | | | | | Acute pain | | Peng Santana DO | | | | | of left | | [address] | | | | | shoulder | | [address] [place] | | | | | Superior | | [place] | | | | | glenoid | | [phone] | | | | | labrum | | Phone: | | | | | lesion of | | [phone] | | | | | left | | Fax: | | | | | shoulder, | | [phone] | | | | | initial | | | | | | | encounter | | | | | | | Recurrent | | | | | | | dislocation | | | | | | | of left | | | | | | | shoulder | | | | | | | Recurrent | | | | | | | dislocation | | | | | | | of left | | | | | | | shoulder | | | | | | | [M24.412], | | | | | | | Superior | | | | | | | glenoid | | | | | | | labrum | | | | | | | lesion of | | | | | | | left | | | | | | | shoulder, | | | | | | | initial | | | | | | | encounter | | | | | | | [S43.432A], | | | | | | | Acute pain | | | | | | | of left | | | | | | | shoulder | | | | | | | [M25.512] | | | | | | | Procedures | | | | | | | [facility] | | | | | | | ARTHROSCOP,S | | | | | | | URG,REPAIR,S | | | | | | | LAP LESION | | | | | | | [facility] | | | | | | | ARTHROSCOP,S | | | | | | | URG,CAPSULOR | | | | | | | RHAPHY | | | +--------+--------+ + + + + Encounter Details +--------+ + + + + | Date | Type | Department | Care Team | Description | +--------+ + + + + | 10/08/ | Anesthesia | [facility] | Josr Arenas, | | | 2015 | Event | [facility] | MD [address] | | | | | [address] | [place] | | | | | [place] | [address] | | | | | [address] | | | | | | [phone] | | | +--------+ + + + + Anesthesia Record + + + + + | Procedure Name | Responsible | Anesthesia Start | Anesthesia Stop Time | | | Anesthesiologist | Time | | + + + + + | Left Shoulder | Josr Arenas MD | 10/08/16 1244 | 10/08/16 1448 | | Arthroscopy w/ | | | | | Labral Repair and | | | | | Capsular Shift (Left | | | | | Shoulder) | | | | + + + + + +----+---+ + + | Da | T | Event | Comment | | te | i | | | | | m | | | | | e | | | +----+---+ + + | 11 | 1 | | | | /1 | 2 | | | | 1/ | 1 | | | | 20 | 4 | | | | 16 | | | | +----+---+ + + | | 1 | An Checkout | Pre-use anesthesia machine/equipment checkout. | | | 2 | | | | | 2 | | | | | 0 | | | +----+---+ + + | | 1 | Pre-Procedu | | | | 2 | ral Timeout | | | | 3 | Completed | | | | 0 | | | +----+---+ + + | | 1 | An Start | | | | 2 | Data | | | | 3 | | | | | 0 | | | +----+---+ + + | | 1 | Block Start | | | | 2 | | | | | 3 | | | | | 0 | | | +----+---+ + + | | 1 | Antibiotic | | | | 2 | Given | | | | 3 | | | | | 0 | | | +----+---+ + + | | 1 | AN Block | | | | 2 | End | | | | 3 | | | | | 4 | | | +----+---+ + + | | 1 | an stop | | | | 2 | data | | | | 4 | | | | | 4 | | | +----+---+ + + | | 1 | An Start | Reassessment prior to anesthesia induction/procedure. | | | 2 | | | | | 4 | | | | | 4 | | | +----+---+ + + | | 1 | Preoxygenat | | | | 2 | ed | | | | 4 | | | | | 8 | | | +----+---+ + + | | 1 | An | | | | 2 | Induction | | | | 5 | | | | | 1 | | | +----+---+ + + | | 1 | An | | | | 2 | Intubation | | | | 5 | | | | | 2 | | | +----+---+ + + | | 1 | AN Bite | | | | 2 | Block | | | | 5 | | | | | 3 | | | +----+---+ + + | | 1 | [place] | | | | 3 | 43-degrees | | | | 1 | | | | | 5 | | | +----+---+ + + | | 1 | First | | | | 3 | Inc/Proc St | | | | 1 | | | | | 7 | | | +----+---+ + + | | 1 | [place] off | | | | 4 | | | | | 2 | | | | | 7 | | | +----+---+ + + | | 1 | an stop | | | | 4 | data | | | | 3 | | | | | 8 | | | +----+---+ + + | | 1 | Extubated | | | | 4 | Awake | | | | 4 | | | | | 0 | | | +----+---+ + + | | 1 | An Stop | Patient handed off to recovery nurse. | | | 4 | | | | | 8 | | | +----+---+ + + +------+ | Meds | +------+ + + + | Name | Total | + + + | midazolam | 2 mg | + + + | fentaNYL | 100 mcg | + + + | lidocaine 2% (PF) | 100 mg | + + + | propofol | 250 mg | + + + | dexamethasone | 10 mg | + + + | ondansetron | 4 mg | + + + | clindamycin in dextrose (CLEOCIN) | 900 mg | | IVPB 900 mg | | + + + | bupivacaine 0.5% + epi 1:200k | 15 mL | + + + | lactated ringers (LR) infusion | 1,850 mL | + + + + + | Name | + + | N2O Flow Rate (L/Min) | + + | O2 Flow Rate (L/Min) | + + | Insp O2 | + + | Exp SEV | + + | Air Flow Rate (L/Min) | + + + + | No blood administrations on file. | + + +--------+ + + + | Type | Details | Placement | Removal | +--------+ + + + | Periph | 10/08/16; 1050; Right; Forearm; | 10/08/16 1050 by | 10/08/16 1715 by | | shawn | [id number] catheter system; | Nicol Lopez RN | Bunny Galo, | | IV | 20 gauge, 1 1/4 in length; | | RN | | | distraction, intradermal | | | | | injection, tolerated well; no | | | | | longer indicated; 10/08/16; 1715 | | | +--------+ + + + | Airway | Placement Date: 10/08/16; | 10/08/16 1252 by | 10/08/16 1440 by | | | Placement Time: 1252 (created via | Josr Arenas MD | Josr Arenas MD | | | procedure documentation); Mask | | | | | Ventilation: EZ; Attempts: 1; | | | | | Airway Type: laryngeal mask; | | | | | Size: 5; Placement Check: exhaled | | | | | CO2 detection device; Removal | | | | | Date: 10/08/16; Removal Time: | | | | | 1440; Additional Comments: | | | | | Surprisingly easy mask | | | | | ventilation | | | +--------+ + + + | Read | 10/08/16; 1409; Left; shoulder; | 10/08/16 1409 by | 10/08/16 1730 by | | only - | healing within expectations; | Chance Weiss RN | Bunny Galo, | | | 10/08/16; 1730 | | RN | | [place] | | | | | on | | | | +--------+ + + + documented in this encounter Social History + +-------+ +--------+------+ | Tobacco [...] + + documented as of this encounter OR Notes Anesthesia Postprocedure Evaluation - Josr Arenas MD - 10/08/2016 2:49 PM PSTFormatti ng of this note might be different from the original. ANESTHESIA POSTANESTHESIA EVALUATION Stiven [place] 31 y.o. male 1985 [id number] Procedure(s) Left Shoulder Arthroscopy w/ Labral Repair and Capsular Shift (Left Shoulder) Cooperates? Yes Mental Status Performs simple tasks. Respiratory Satisfactory - Airway patent (self maintained). Cardiovascular Satisfactory Blood pressure and heart rate acceptable Temperature Satisfactory Pain Satisfactory N/V Control Satisfactory Hydration Satisfactory No signs of dehydration Complications None apparent Not requiring any airway support in PACU. Good pain control. Minimal narcotics. Has alre hernando agreed to sleep in a recliner which I think is appropriate. Surgeon very disinterested in 24 hour observation, and at this point this patient neither triggered for MAUREEN by screenin g or observation. Should be acceptable to go home unless clinical status changes. Filed Vitals: 10/08/16 1000 10/08/16 1443 10/08/16 1447 BP: 174/107 141/82 Pulse: 64 102 100 Temp: 36.6 C (97.9 F) 36.3 C (97.3 F) Resp: 18 20 SpO2: 97% 98% 99% Electronically signed by Josr Arenas MD 10/08/2016 14:49 [facility] nesthesia Procedure Notes - Josr Arenas MD - 10/08/2016 1:35 PM PSTAssociated Order(s): ANE AIRWAY NOTE; A NE NERVE BLOCK CATHETER NOTEAnesthesia Airway Placement 10/08/2016 12:52 Preprocedure check: patient identified, suction, airway equipment checked, oxygen, airway a ssessed and patient reassessment prior to induction Rapid Sequence Induction: no Mask ventilation: easy Attempts: 1 Airway type: laryngeal mask Size: 5 Cuffed: cuffed Route, reference point: center of mouth Trauma: none Tube placement verification: carbon dioxide detection Performing provider: JOSR ARENAS Comments: Surprisingly easy mask ventilation Electronically Signed by: Josr Arenas MD ESig date/time: 13:36 Perineural Procedure Note 10/08/2016 12:34 Nerve block: interscalene-brachial plexus Laterality: left Continuous block with catheter: No Provider requested procedure: Wil[place] Indication: postoperative analgesia Preprocedure check: patient identified, procedure and rescue equipment checked, preevaluati on including airway assessment complete, risks/benefits discussed, consent obtained, timeout performed, reassessment prior to procedure and monitors applied Patient position: supine Preparation: chlorhexidine/isopropyl alcohol Technique: ultrasound Radiology image stored in patient's chart: ultrasound Needle: stimulating and insulated Needle size: 21 g Needle length: 4 in Medication administered through: needle Negative findings: no blood aspirated and no paresthesia Total volume of local anesthetic solution administered: 15 (Incremental injection in 3-4 mL increments with negative aspiration each time.) Ease of procedure: 1 Attempts: easy Comments: Regional block placed for postoperative pain control at request of patient and chi rgeon. Ultrasound utilized throughout entirety of procedure for the purposes of directing t he needle to nerve proximity and watching spread of local anesthetic. Positive level and "d onut" sign. Ultrasound image in chart. NIBP/SpO2 monitoring. Mother at bedside throughout . Please see anesthesia record or flowsheet for vital sign documentation and see anesthesia r ecord or MAR for all medication documentation. Performing provider: JOSR ARENAS Electronically Signed by: Josr Arenas MD ESig date/time: 6 13:36 nesthesia Preprocedu re Evaluation - Josr Arenas MD - 10/08/2016 10:48 AM PSTFormatting of this note might b e different from the original. ANESTHESIA PREANESTHESIA EVALUATION Stiven Davila 31 y.o. male 1985 [id number] Procedure(s): Left Shoulder Arthroscopy w/ Labral Repair and Capsular Shift (Left Shoulder) Medical history, anesthesia, medications, allergy, NPO status verified histories reviewed. ECG reviewed. Labs reviewed. Review of Systems / Med History Anesthesia History (-) PONV, difficult intubation, malignant hyperthermia Cardiovascular (-) past [place] , Exercise tolerance >4 METS Pulmonary No acute pulmonary concerns.. Neurology (-) CVA Psychology (+) developmental delays Renal (-) chronic renal insufficiency Gastrointestinal/Hepatic (-) reflux/GERD. Endocrine (-) Diabetes.(+) obesity: morbid BMI 40+ Physical Exam Airway MP II, TM >3 FB, Mouth opening >2 FB. Neck: full ROM, extends >30 degrees. Dental Colby ssly normal except where noted below.; (+) Poor dentition. CV Rhythm regular. Rate Normal. (-) murmur. Pulm Clear to auscultation bilaterally. Neuro Grossly normal. Other Morbidly obese Anesthesia Plan ASA 3 Type: General. Induction: Intravenous. Potential problems: None anticipated. Monitors: Standard ASA monitors. Consent statement:Anesthetic plan, alternatives, risks and benefits discussed with patient and mother. Risks discussed included (but were not limited to): perioperative CV events, sore throat, h eart problems, respiratory events, nausea, failed or inadequate block, bleeding, nerve damag e, intravascular injection. Consenting person understands and agrees to proceed. PARQ. Interscalene single-shot peripheral nerve block requested by patient and surgeon for postop erative pain control. Full PARQ held. All questions answered. Plan GA w/ LMA. Discussed with him that he may need to spend the night if he demonstrates significant sleep apnea in p erioperative window. Patient regularly sleeps in a recliner and would do so tonight if sent home, per patient and mother. . documented in this en counter Plan of Treatment +--------+---------+ + + + | Date | Type | Specialty | Care Team | Description | +--------+---------+ + + + | 07/22/ | Office | Family Medicine | Chance Dudley, | | | 2019 | Visit | | MD [address] | | | | | | [place] | | | | | | [id number] | | | | | | | | +--------+---------+ + + + documented as of this encounter Procedures + +--------+ + + + | Procedure Name | Priori | Date/Time | Associated Diagnosis | Comments | | | ty | | | | + +--------+ + + + | ANE AIRWAY NOTE | Routin | 10/08/2016 | | Results for this | | | e | 1:38 PM | | procedure are in the | | | | PST | | results section. | + +--------+ + + + documented in this encounter Results Anesthesia Perineural Note (10/08/2016 1:38 PM PST) + + + | Narrative | Performed At | + + + | Josr Arenas MD 10/08/2016 13:38 Anesthesia Airway | | | Placement 10/08/2016 12:52 Preprocedure check: patient | | | identified, suction, airway equipment checked, oxygen, airway | | | assessed and patient reassessment prior to induction Rapid Sequence | | | Induction: no Mask ventilation: easy Attempts: 1 Airway type: | | | laryngeal mask Size: 5 Cuffed: cuffed Route, reference point: | | | center of mouth Trauma: none Tube placement verification: carbon | | | dioxide detection Performing provider: JOSR ARENAS Comments: | | | Surprisingly easy mask ventilation Electronically Signed by: Josr Canchola | Sushant Arenas MD ESig | | | date/time: 10/08/2016 13:36 Perineural | | | Procedure Note 10/08/2016 12:34 Nerve block: | | | interscalene-brachial plexus Laterality: left Continuous block with | | | catheter: No Provider requested procedure: Wilwand Indication: | | | postoperative analgesia Preprocedure check: patient identified, | | | procedure and rescue equipment checked, preevaluation including | | | airway assessment complete, risks/benefits discussed, consent | | | obtained, timeout performed, reassessment prior to procedure and | | | monitors applied Patient position: supine Preparation: | | | chlorhexidine/isopropyl alcohol Technique: ultrasound Radiology | | | image stored in patient's chart: ultrasound Needle: stimulating and | | | insulated Needle size: 21 g Needle length: 4 in Medication | | | administered through: needle Negative findings: no blood aspirated | | | and no paresthesia Total volume of local anesthetic solution | | | administered: 15 (Incremental injection in 3-4 mL increments with | | | negative aspiration each time.) Ease of procedure: 1 Attempts: | | | easy Comments: Regional block placed for postoperative pain | | | control at request of patient and surgeon. Ultrasound utilized | | | throughout entirety of procedure for the purposes of directing the | | | needle to nerve proximity and watching spread of local anesthetic. | | | Positive level and "donut" sign. Ultrasound image in chart. | | | NIBP/SpO2 monitoring. Mother at bedside throughout. Please | | | see anesthesia record or flowsheet for vital sign documentation and | | | see anesthesia record or MAR for all medication documentation. | | | Performing provider: JOSR ARENAS Electronically Signed | | | by: Josr Arenas MD ESig | | | date/time: 10/08/2016 13:36 | | + + + Anesthesia Airway Note (10/08/2016 1:38 PM PST) + + + | Narrative | Performed At | + + + | Josr Arenas MD 10/08/2016 13:38 Anesthesia Airway | | | Placement 10/08/2016 12:52 Preprocedure check: patient | | | identified, suction, airway equipment checked, oxygen, airway | | | assessed and patient reassessment prior to induction Rapid Sequence | | | Induction: no Mask ventilation: easy Attempts: 1 Airway type: | | | laryngeal mask Size: 5 Cuffed: cuffed Route, reference point: | | | center of mouth Trauma: none Tube placement verification: carbon | | | dioxide detection Performing provider: JOSR ARENAS Comments: | | | Surprisingly easy mask ventilation Electronically Signed by: Josr | | | Fadumo Arenas MD ESig | | | date/time: 10/08/2016 13:36 Perineural | | | Procedure Note 10/08/2016 12:34 Nerve block: | | | interscalene-brachial plexus Laterality: left Continuous block with | | | catheter: No Provider requested procedure: Wilwand Indication: | | | postoperative analgesia Preprocedure check: patient identified, | | | procedure and rescue equipment checked, preevaluation including | | | airway assessment complete, risks/benefits discussed, consent | | | obtained, timeout performed, reassessment prior to procedure and | | | monitors applied Patient position: supine Preparation: | | | chlorhexidine/isopropyl alcohol Technique: ultrasound Radiology | | | image stored in patient's chart: ultrasound Needle: stimulating and | | | insulated Needle size: 21 g Needle length: 4 in Medication | | | administered through: needle Negative findings: no blood aspirated | | | and no paresthesia Total volume of local anesthetic solution | | | administered: 15 (Incremental injection in 3-4 mL increments with | | | negative aspiration each time.) Ease of procedure: 1 Attempts: | | | easy Comments: Regional block placed for postoperative pain | | | control at request of patient and surgeon. Ultrasound utilized | | | throughout entirety of procedure for the purposes of directing the | | | needle to nerve proximity and watching spread of local anesthetic. | | | Positive level and "donut" sign. Ultrasound image in chart. | | | NIBP/SpO2 monitoring. Mother at bedside throughout. Please | | | see anesthesia record or flowsheet for vital sign documentation and | | | see anesthesia record or MAR for all medication documentation. | | | Performing provider: JOSR ARENAS Electronically Signed | | | by: Josr Arenas MD ESig | | | date/time: 10/08/2016 13:36 | | + + + documented in this encounter Visit Diagnoses Not on filedocumented in this encounter Administered Medications + +--------+ +--------+------+------+ | Medication Order | MAR | Action | Dose | Rate | Site | | | Action | Date | | | | + +--------+ +--------+------+------+ | bupivacaine 0.5%-EPINEPHrine | Given | 10/08/20 | 15 mLs | | | | 1:200,000 (PF) injection PRN, | | 16 12:34 | | | | | Other, Starting Tue10/08/16 at | | PM PST | | | | | 1234, Anesthesia Intra-op | | | | | | + +--------+ +--------+------+------+ +---+---+ | | | +---+---+ + +-------+ +--------+---+---+ | clindamycin in dextrose | Given | 10/08/20 | 900 mg | | | | (CLEOCIN) IVPB 900 mg 900 mg, | | 16 12:30 | | | | | Intravenous, Administer over 60 | | PM PST | | | | | Minutes, Prior to Incision, | | | | | | | Starting Tue10/08/16 at 1116, | | | | | | | For 1 dose, Pre-op, Indications: | | | | | | | Surgical Prophylaxis | | | | | | + +-------+ +--------+---+---+ +---+---+ | | | +---+---+ + +-------+ +-------+---+---+ | dexamethasone (DECADRON) 10 | Given | 10/08/20 | 10 mg | | | | mg/mL injection Intravenous, | | 16 12:55 | | | | | PRN, Starting 10/08/16 at | | PM PST | | | | | 1255, Anesthesia Intra-op | | | | | | + +-------+ +-------+---+---+ +---+---+ | | | +---+---+ + +-------+ +--------+---+---+ | fentaNYL (PF) injection | Given | 10/08/20 | 50 mcg | | | | Intravenous, PRN, Pain, Starting | | 16 12:51 | | | | | 10/08/16 at 1230, Anesthesia | | PM PST | | | | | Intra-op | | | | | | + +-------+ +--------+---+---+ +-------+ +--------+---+---+ | Given | 10/08/20 | 50 mcg | | | | | 16 12:30 | | | | | | PM PST | | | | +-------+ +--------+---+---+ +---+---+ | | | +---+---+ + +---------+ +---+-------+---+ | lactated ringers (LR) infusion | New Bag | 10/08/20 | | 100 | | | at 10-100 mL/hr, Intravenous, | | 16 3:29 | | mL/hr | | | CONTINUOUS, Starting 10/08/16 | | PM PST | | | | | at 1045, TKO., Pre-op | | | | | | + +---------+ +---+-------+---+ +---------+ +---+ +---+ | New Bag | 10/08/20 | | | | | | 16 1:30 | | | | | | PM PST | | | | +---------+ +---+ +---+ | New Bag | 10/08/20 | | 50 mL/hr | | | | 16 10:50 | | | | | | AM PST | | | | +---------+ +---+ +---+ +---+---+ | | | +---+---+ + +-------+ +--------+---+---+ | lidocaine (PF) 2% injection | Given | 10/08/20 | 100 mg | | | | PRN, Starting Tue10/08/16 at | | 16 12:51 | | | | | 1251, Anesthesia Intra-op | | PM PST | | | | + +-------+ +--------+---+---+ +---+---+ | | | +---+---+ + +-------+ +------+---+---+ | midazolam (VERSED) 1 mg/mL | Given | 10/08/20 | 2 mg | | | | injection Intravenous, PRN, | | 16 12:30 | | | | | Anxiety, Starting Tue10/08/16 at | | PM PST | | | | | 1230, Anesthesia Intra-op | | | | | | + +-------+ +------+---+---+ +---+---+ | | | +---+---+ + +-------+ +------+---+---+ | ondansetron (ZOFRAN) injection | Given | 10/08/20 | 4 mg | | | | PRN, Nausea, Vomiting, Starting | | 16 12:55 | | | | | 10/08/16 at 1255, Anesthesia | | PM PST | | | | | Intra-op | | | | | | + +-------+ +------+---+---+ +---+---+ | | | +---+---+ + +-------+ +--------+---+---+ | propofol (DIPRIVAN) injection | Given | 10/08/20 | 250 mg | | | | Intravenous, PRN, Starting Fri | | 16 12:51 | | | | | 10/08/16 at 1251, Anesthesia | | PM PST | | | | | Intra-op | | | | | | + +-------+ +--------+---+---+ +---+---+ | | | +---+---+ documented in this encounter
--- OUTSIDE RECORDS SUMMARY | ~2020-07-13 | XMS | Encounter Summary ---
Demographics + + + | Address | [address] | | | [place] [address] | + + + | Home Phone | | + + + | Preferred Language | Unknown | + + + | Marital Status | Single | + + + | Methodist Affiliation | Unknown | + + + | Race | White | + + + | Ethnic Group | Not or | + + + Author + + + | Author | [facility] | | | and [place] | + + + | Organization | [facility] | | | and [...] | | | | | [place] [address] | | + + + + + Care Team Providers + +------+ + | Care Staple Processing Machine Operator Name | Role | Phone | + +------+ + | Chance Dudley MD | PCP | | + +------+ + Reason for Visit + +--------+ + | Reason | Onset | Comments | | | Date | | + +--------+ + | Care Gap | 05/07/ | diabetic retinopathy | | | 2020 | | + +--------+ + Encounter Details +--------+ + + + + | Date | Type | Department | Care Team | Description | +--------+ + + + + | 05/07/ | Telephone | [facility] | Jennie Long, | Care Gap (diabetic | | 2020 | | [facility] | PT [address] | retinopathy) | | | | [address] | [place] | | | | | [place] | [id number] | | | | | [address] | | | | | | [phone] | | | +--------+ + + + [...] this encounter Miscellaneous Notes Telephone Encounter - Jennie Long PT - 05/07/2020 3:22 PM PDTPatient has been identif ied by population health department care gap as being overdue for diabetic retinopathy deja apple. Patient's last diabetic retinopathy exam: unknown, no exam in media tab Patient's preferred usability architect office: unknown Called patient to discuss. Attempted to reach pt. X 3, left messages. Unable to contact pt . documented in this en counter Plan of Treatment +--------+---------+ + + + | Date | Type | Specialty | Care Team | Description | +--------+---------+ + + + | 07/22/ | Office | Family Medicine | Chance Dudley, | | 2019 | Visit | | MD [address] [facility] | | | | | | [place] | | | | | | [phone] | | | | | | | | +--------+---------+ + + + documented as of this encounter Visit Diagnoses Not on filedocumented in this encounter"
--- OUTSIDE RECORDS SUMMARY | ~2020-07-13 | XMS | Encounter Summary ---
Demographics + + + | Address | [address] | | | [place] [address] | + + + | Home Phone | | + + + | Preferred Language | Unknown | + + + | Marital Status | Single | + + + | Pentecostalism Affiliation | Unknown | + + + | Race | White | + + + | Ethnic Group | Not or | + + + Author + + + | Author | [facility] | | | and [place] | + + + | Organization | [facility] | | | [...] [place] | | | | | [place] [address] | | + + + + + Care Team Providers + +------+ + | Care Management Scientist Name | Role | Phone | + +------+ + | Chance Dudley MD | PCP | | + +------+ + Reason for Referral Evaluate & Treat (Urgent) +--------+ + + + + + | Status | Reason | Specialty | Diagnoses / | Referred By | Referred To | | | | | Procedures | Contact | Contact | +--------+ + + + + + | Closed | Specialty | Orthopedic | Diagnoses | [place], | [place], | | | Services | Surgery | Chronic | Chance Brewster MD | Peng Santana DO | | | Required | | left | [address] | [address] | | | | | shoulder | [address] [place] | [place] | | | | | pain Tear | [place], [place] | [place] | | | | | of left | [address] | [address] | | | | | glenoid | Phone: | Phone: | | | | | labrum, | [phone] | [phone] | | | | | subsequent | Fax: | | | | | | encounter | [phone] | | | | | | Recurrent | | | | | | | dislocation, | | | | | | | left | | | | | | | shoulder | | | +--------+ + + + + + Reason for Visit + +--------+ + | Reason | Onset | Comments | | | Date | | + +--------+ + | Referral | 09/22/ | | | | 2015 | | + +--------+ + Encounter Details +--------+ + + + + | Date | Type | Department | Care Team | Description | +--------+ + + + + | 09/22/ | Telephone | [facility] | Chance Dudley, | Referral | | 2015 | | [facility] [place] | [address] | | | | | [address] | [place] | | | | | [place], [place] | [address] | | | | | [address] | | | | | | [phone] | | | +--------+ + + + [...] +---------+ + | Yes | | | Once a month-2 beers | + + +---------+ + + + + | Sex Assigned at | Date Recorded | | | | + + + | Not on file | | + + + documented as of this encounter Miscellaneous Notes Telephone Encounter - Sujatha Chaparro RN - 09/22/2016 8:24 AM PDTPhone call from marija garzon's mother, Mabel. She says she spoke with someone last week about patient's MRI results and ortho referral. She was told that patient would need to be referred to Dr. Murguia, and our office would put in urgent referral. She states she has called multiple times and still has not heard anything on the status of this referral. No notes from last week, and Mabel does not recall who she spoke with. Referral notes show t hat ortho referral was initially done to Dr. Norton, but after reviewing records he said th at patient needs to see Dr. Murguia. A staff message was sent to Dr. Dudley 09/14, but I d o not see any response or that new referral was entered. Apologized to Mabel for the delay in getting this done. Told her I will put in referral now and make sure our email marketing specialist works on it right away since they have been waiting a few weeks. Referral entered to Dr. Murguia. Message sent to Chaparrita. documented in this encounter Plan of Treatment +--------+---------+ + + + | Date | Type | Specialty | Care Team | Description | +--------+---------+ + + + | 07/22/ | Office | Family Medicine | Chance Dudley, | | | 2019 | Visit | | MD [address] [facility] | | | | | | [place] | | | | | | [address] | | | | | | | | +--------+---------+ + + + + + +--------+ + + | Name | Type | Priori | Associated Diagnoses | Order Schedule | | | | ty | | | + + +--------+ + + | [facility] | Outpatient | Routin | Chronic left | Ordered: 09/22/2016 | | Clinic Orthopedic | Referral | e | shoulder pain Tear | | | | | | of left glenoid | | | | | | labrum, subsequent | | | | | | encounter Recurrent | | | | | | dislocation, left | | | | | | shoulder | | + + +--------+ + + documented as of this encounter Visit Diagnoses + + | Diagnosis | + + | Chronic left shoulder pain - Primary Pain in joint, shoulder region | + + | Tear of left glenoid labrum, subsequent encounter | + + | Recurrent dislocation, left shoulder | + + documented in this encounter"
--- OUTSIDE RECORDS SUMMARY | ~2020-07-13 | XMS | Encounter Summary ---
Demographics + + + | Address | [address] | | | [place] [address] | + + + | Home Phone [...] Author + + + | Author | [facility] | | | and [place] | + + + | Organization | [facility] | | | [...] [place] | | | | | [place] [address] | | + + + + + Care Team Providers + +------+ + | Care American Studies Professor Name | Role | Phone | + +------+ + | Chance Dudley MD | PCP | | + +------+ + Reason for Visit + + + | Reason | Comments | + + + | Numbness | right leg x 1 week | + + + | Leg Swelling | right leg | + + + | Skin Discoloration | toe on right foot | + + + | Hip Pain | x 2 weeks | + + + Encounter Details +--------+---------+ + + + | Date | Type | Department | Care Team | Description | +--------+---------+ + + + | 11/01/ | Office | [facility] | Chance Dudley, | Radicular low back | | 2012 | Visit | [facility] [place] | [address] | pain (Primary Dx); | | | | [address] | [place] | Right leg | | | | [place] | [address] | paresthesias; Calf | | | | [address] | | cramp | | | | [phone] | | | +--------+---------+ + + + [...] + + + | Blood Pressure | 140/100 | 11/01/2013 2:56 PM | | | | | PST | | + + + + + | Pulse | 80 | 11/01/2013 2:56 PM | | | | | PST | | + + + + + | Temperature | 36.4 C (97.6 F) | 11/01/2013 2:56 PM | | | | | PST | | + + + + + | Respiratory Rate | 20 | 11/01/2013 2:56 PM | | | | | PST | | + + + + + | Oxygen Saturation | - | - | | + + + + + | Inhaled Oxygen | - | - | | | Concentration | | | | + + + + + | Weight | 167.2 kg (368 lb | 11/01/2013 2:56 PM | | | | 11.2 oz) | PST | | + + + + + | Height | - | - | | + + + + + | Body Mass Index | 48.64 | 10/26/2013 11:09 AM | | | | | PST | | + + + + + documented in this encounter Patient Instructions Patient Instructions Chance Dudley MD - 11/01/2013 3:31 PM PSTBP 140/100 | Pulse 80 | Temp 36.4 C (97.6 F) (Temporal) | Resp 20 | Wt 167.241 kg (368 lb 11.2 oz) Back Care Tips These are things you can do to prevent a recurrence of acute back pain and to reduce sympto ms from chronic back pain: Maintain a healthy weight. If you are overweight, losing weight will help most types of back pain. Exercise is an important part of recovery from most types of back pain. The back is supp orted by the muscles behind and in front of the spine. This means both the back muscles and the abdominal muscles must be strengthened to provide better support for your spine. Swimming and brisk walking are good overall exercises to improve your fitness level. Practice safe lifting methods (below). Practice good posture when sitting, standing and walking. Avoid prolonged sitting. This puts more stress on the lower back than standing or walking. Wear quality shoes with sufficient arch support. Foot and ankle alignment can affect serg k symptoms. Women should avoid high heels. Therapeutic massage can help relieve acute and chronic back pain. During the first two days after an acute injury or flare-up of chronic back pain, apply an ice pack to the painful area for 20 minutes every 2-4 hours. This will reduce swelling an d pain. Heat (hot shower, hot bath, or heating pad) works well for muscle spasm. You can sta rt with ice, then switch to heat after two days. Some patients feel best alternating ice and heat treatments. Use the one method that feels the best to you. You may use acetaminophen (Tylenol) or ibuprofen (Motrin, Advil) to control pain, unless another medicine was prescribed. [NOTE: If you have chronic liver or kidney disease or ever had a stomach ulcer or GI bleeding, talk with your doctor before using these medicines.] Lumbar Stretch Here is a simple stretching exercise that will help relax muscle spasm and keep your back m ore limber. If exercise makes your back pain worse, don t do it. Lie on your back with your knees bent and both feet on the ground. Slowly raise your left knee to your chest as you flatten your lower back against the sarah or. Hold for 5 seconds. Relax and repeat the exercise with your right knee. Do 10 of these exercises for each leg. Safe Lifting Method Don t bend over at the waist to lift an object off the floor. Instead, bend your knee s and hips in a squat. Keep your back and head upright. Hold the object close to your body, directly in front of you. Straighten your legs to lift the object. Lower the object to the floor in the reverse fashion. If you must slide something across the floor, push it. Posture Tips SITTING Sit in chairs with straight backs or low-back support. Keep your knees a little higher than your hips. If necessary, use a low stool to prop your feet on, so your feet are resting on a solid surface. When driving, sit up straight. Adjust the seat forward so you are not leaning toward the [place] [address] wheel. A small pillow or rolled towel behind your lower back may help if you are dri ving long distances. STANDING When standing for long periods, shift most of your weight to one leg at a time. Alternate l egs every few minutes. SLEEPING The best way to sleep is on your side with your knees bent. Put a low pillow under your hea d to support your neck in a neutral spine position. Avoid thick pillows that bend your neck to one side. Put a pillow between your legs to further relax your lower back. If you sleep o n your back, put pillows under your knees to support your legs in a slightly flexed position . Use a firm mattress. If your mattress sags, replace it, or use a 1/2-inch plywood board un debra the mattress to add support. Follow Up with your doctor or as directed by our staff. [NOTE: If X-rays, a CT scan or an MRI scan were taken, they will be reviewed by a radiologi st. You will be notified of any new findings that may affect your care.] Return Promptly or contact your doctor if any of the following occur: Pain becomes worse or spreads to your arms or legs Weakness or numbness in one or both arms or legs Loss of bowel or bladder control Numbness in the groin area [phone] Annelise Haque, [address] [place] [address]. All rights reserve d. This information is not intended as a substitute for professional medical care. Always fo llow your healthcare professional's instructions. documented in this encounter Progress Notes Chance Dudley MD - 11/01/2013 3:08 PM PSTFormatting of this note might be different fr om the original. Subjective: Patient ID: Stiven Davila is a 28 y.o. male here for right leg pain, numbness. HPI He was doing well until 2 weeks ago. His right hip started to hurt (points to where wallet rests in back pocket) described as "hurt like hell, a shock with bending over." That pain did not radiate. He then soaked his feet in an OTC foot soak and that made his hip pain wor se. Subsequently the bottom of his right foot went numb, calf went numb, right foot became cold, and his 2nd toe turned blue and his right calf swelled. He was evaluated in UC, had n egative duplex US. Attributed pain to lumbar strain and peripheral neuropathy. Since then his symptoms are unchanged. He does endorse calf pain with walking which is better with res t. No fever, saddle paresthesias, bowel/bladder dysfunction. No back injuries. His left calf sore has almost completely resolved. He is no longer taking antibiotics. Patient's medications, allergies, past medical, surgical, social and family histories were reviewed and updated as appropriate. Review of Systems See HPI BP 140/100 | Pulse 80 | Temp 36.4 C (97.6 F) (Temporal) | Resp 20 | Wt 167.241 kg (368 lb 11.2 oz) Objective: Physical Exam Constitutional: He is oriented to person, place, and time. He appears well-developed and we ll-nourished. No distress. Cardiovascular: Normal rate, regular rhythm, normal heart sounds and intact distal pulses. Exam reveals no gallop and no friction rub. No murmur heard. Pulmonary/Chest: Effort normal. No respiratory distress. He has no wheezes. He has no rales . Musculoskeletal: Edema: Trace bilaterally. No spinal or paraspinal tenderness. Mild right SI tenderness. Symmetric calf diameters Full strength with hip flexion, knee flex/ext, ankle flex/ext Neurological: He is alert and oriented to person, place, and time. Negative straight leg raise Patella, Achilles 1+ symmetric Monofilament testing decreased over right pinkie toe, otherwise normal. Skin: LLE ulcer smaller than previous without discharge. Assessment: Stiven was seen today for numbness, leg swelling, skin discoloration and hip pain. Diagnoses and associated orders for this visit: Radicular low back pain - cyclobenzaprine (FLEXERIL) 10 mg tablet; Take 1 tablet by mouth 3 times daily as needed f or Muscle spasms for 14 days. - Educated on warning signs Right leg paresthesias: Unremarkable examination. Monofilament testing decreased over pin tamika toe, otherwise normal. - Consider NCS if persists - Treat back pain Calf cramp: Suspect MSK pain. Given calf pain with exertion and weak (but palpable pulses ) will obtain segmental pressures. Exam not consistent with compartment syndrome. - VAS Segmental Pressures Legs; Future - cyclobenzaprine (FLEXERIL) 10 mg tablet; Take 1 tablet by mouth 3 times daily as needed f or Muscle spasms for 14 days. Saurabh Dudley MD Jina Pedroza [facility] - 11/01/2013 2:59 PM PSTPatient is here complaining of hip pain x 2 weeks, righ t leg swelling, numbness, and skin discoloration toe on right foot x 1 week.Electronically s igned by Jina Jesus [employer] [facility] [employer] at 11/11/2013 3:41 PM PSTdocumented in this encount er Plan of Treatment +--------+---------+ + + + | Date | Type | Specialty | Care Team | Description | +--------+---------+ + + + | 07/22/ | Office | Family Medicine | Chance Dudley, | | | 2019 | Visit | | MD [address] | | | | | | [place] | | | | | | [address] | | | | | | | | +--------+---------+ + + + + +---------+--------+ + + | Name | Type | Priori | Associated Diagnoses | Order Schedule | | | | ty | | | + +---------+--------+ + + | VAS Segmental | Imaging | Routin | Calf cramp | Expected: | | Pressures Legs | | e | | 11/01/2013, Expires: | | | | | | 11/01/2014 | + +---------+--------+ + + documented as of this encounter Visit Diagnoses + + | Diagnosis | + + | Radicular low back pain - Primary Thoracic or lumbosacral neuritis or radiculitis, | | unspecified | + + | Right leg paresthesias Disturbance of skin sensation | + + | Calf cramp Cramp of limb | + + documented in this encounter
--- OUTSIDE RECORDS SUMMARY | ~2020-07-13 | XMS | Encounter Summary ---
Demographics + + + | Address | [address] | | | [place] [address] | + + + | Home Phone | | + + + | Preferred Language | Unknown | + + + | Marital Status | Single | + + + | Tenriism Affiliation | Unknown | + + + | Race | White | + + + | Ethnic Group | Not or | + + + Author + + + | Author | [facility] | | | and [place] | + + + | Organization | [facility] | | | [...] | | | | | [place], [place] [address] | | + + + + + Care Team Providers + +------+ + | Care Digital Strategy Manager Name | Role | Phone | + +------+ + PCP | Unavailable | + +------+ + Encounter Details +--------+ + + + + | Date | Type | Department | Care Team | Description | +--------+ + + + + | 08/08/ | [facility] | [facility] | Rich Millard | | | 2000 | Encounter | MED CTR XRAY [address] [place] [address] | | | | | [place] | [place] | | | | | [place] [address] | [address] | | | | | [phone] | [phone] | | | | | | | [...] [place] | | | | | | [address] | | | | | | | | +--------+---------+ + + + documented as of this encounter Visit Diagnoses Not on filedocumented in this encounter"
--- OUTSIDE RECORDS SUMMARY | ~2020-07-13 | XMS | Encounter Summary ---
Demographics + + + | Address | [address] | | | [place] [address] | + + + | Home Phone | | + + + | Preferred Language | Unknown | + + + | Marital Status | Single | + + + | Zoroastrian Affiliation | Unknown | + + + | Race | White | + + + | Ethnic Group | Not or | + + + Author + + + | Author | [facility] | | | and [place] | + + + | Organization | [facility] | | [...] | | | | | [place] [address] | | + + + + + Care Team Providers + +------+ + | Care Automation Tender Name | Role | Phone | + +------+ + | Chance Dudley MD | PCP | | + +------+ + Reason for Visit +--------+ + | Reason | Comments | +--------+ + | Wound | follow up x 3 months | +--------+ + Encounter Details +--------+---------+ + + + | Date | Type | Department | Care Team | Description | +--------+---------+ + + + | 09/03/ | Office | [facility] | Chance Dudley, | Chronic wound of | | 2013 | Visit | [facility] | [address] | extremity (Primary | | | | [address] | [facility] [place] | Dx); Prediabetes; | | | | [place] | [address] | Screening, lipid; | | | | [address] | | Need for influenza | | | | [phone] | | vaccination | +--------+---------+ + + + Social History [...] + + + | Blood Pressure | 134/88 | 09/03/2013 1:05 PM | | | | | PDT | | + + + + + | Pulse | 76 | 09/03/2013 1:05 PM | | | | | PDT | | + + + + + | Temperature | 36.4 C (97.6 F) | 09/03/2013 1:05 PM | | | | | PDT | | + + + + + | Respiratory Rate | 16 | 09/03/2013 1:05 PM | | | | | PDT | | + + + + + | Oxygen Saturation | - | - | | + + + + + | Inhaled Oxygen | - | - | | | Concentration | | | | + + + + + | Weight | 163.6 kg (360 lb 9.6 | 09/03/2013 1:05 PM | | | | oz) | PDT | | + + + + + | Height | - | - | | + + + + + | Body Mass Index | 46.3 | 06/12/2013 1:29 PM | | | | | PDT | | + + + + + documented in this encounter Patient Instructions Patient Instructions Chance Dudley MD - 09/03/2013 1:29 PM PDTBP 134/88 | Pulse 76 | T emp 36.4 C (97.6 F) (Temporal) | Resp 16 | Wt 163.567 kg (360 lb 9.6 oz) Please stop by the lab for blood work. You need to be fasting - nothing to eat or drink ot her than water or black coffee for 10 hours. No alcohol for 24 hours. Please take the keflex as prescribed Cellulitis You have an infection of the skin known as cellulitis. This usually starts with a scrape, c ut, insect bite, blister or other opening in the skin which becomes infected. This is a seri ous condition. It must be watched closely to be sure the infection is not spreading. With antibiotic treatment, the size of the red area will gradually shrink in size until the skin returns to normal. This will take 7-10 days. The red area should never increase in size once the antibiotic medicine has been started. O ccasionally, an infection will be resistant to one antibiotic and another one will have to b e used. Home Care: 1) Limit the use of the affected part, since excess movement can cause the infection to spr ead. 2) If the infection is on your leg, walk as little as possible during the first few days of the treatment. Keep your leg elevated while sitting. This will reduce swelling. 3) Take all of the antibiotic medicine exactly as directed until it is gone. Be careful not to miss any doses, especially during the first seven days. Follow Up with your doctor or this facility as directed. Check the infected area daily for the warnin g signs listed below. Get Prompt Medical Attention if any of the following occur: -- Spreading area of redness -- Increasing swelling or pain -- Appearance of pus or drainage -- Fever over 100.4 F (38.0 C) oral, or over 101.4 F (38.6 C) rectal, after two days on antibiotics [id number] [place] [address]. All rights reserve d. This information is not intended as a substitute for professional medical care. Always fo llow your healthcare professional's instructions. documented in this encounter Progress Notes Chance Dudley MD - 09/03/2013 1:15 PM PDTFormatting of this note might be different fr om the original. Subjective: Patient ID: Stiven Davila is a 28 y.o. male here for wound follow-up. Accompanied by mom. HPI They had been lost to follow-up. They lost track of time. He feels his wound is getting bigger. His mom thinks it is getting smaller and shallower. It continues to drain and has some redness around it. They felt like the antibiotics were very helpful, but just forgot to follow-up. No fever, pain, Patient's medications, allergies, past medical, surgical, social and family histories were reviewed and updated as appropriate. Review of Systems See HPI BP 134/88 | Pulse 76 | Temp 36.4 C (97.6 F) (Temporal) | Resp 16 | Wt 163.567 kg (360 l b 9.6 oz) Objective: Physical Exam Constitutional: Very pleasant, well developed, NAD Cardiovascular: Normal rate, regular rhythm, normal heart sounds and intact distal pulses. Exam reveals no gallop and no friction rub. No murmur heard. Pulmonary/Chest: Effort normal. No respiratory distress. He has no wheezes. He has no rales . Skin: 12 mm wide x 9 mm tall ulcer with smooth rolled borders and pink granulation tissue at center with oblong area of erythema ~2 finger breadths around ulcer. Mild amount of serous drainage. No fluctuance. Assessment: Stiven was seen today for wound. Diagnoses and associated orders for this visit: Chronic wound of extremity: Noncompliant with treatment. No systemic symptoms, low suspic ion for osteomyelitis. Wound culture with MSSA and GBS. Not characteristic of pyoderma jose grenosum. - C-Reactive Protein; Future - cephalexin (KEFLEX) 500 mg capsule; Take 1 capsule by mouth 4 times daily for 14 days. I f not improving will change back to clindamycin and cipro - CBC with Differential; Future Prediabetes: Advised to follow-up to address this specifically - Hemoglobin A1C; Future - Lipid Profile; Future Screening, lipid - Lipid Profile; Future Need for influenza vaccination - Flu vaccine greater than or equal to 3yo preservative free IM Saurabh Dudley MD Jina Melendez CMA - 09/03/2013 1:07 PM PDTPatient is here to follow up on wound x 3 months. Patient would l fortino a flu vaccine today. documented in this encounter Plan of Treatment +--------+---------+ + + + | Date | Type | Specialty | Care Team | Description | +--------+---------+ + + + | 07/22/ | Office | Family Medicine | Chance Dudley, | | | 2019 | Visit | | [address] | | | | | | [place] | | | | | | [id number] | | | | | | | | +--------+---------+ + + + documented as of this encounter Results CBC with Differential (09/18/2013 2:42 PM PDT) + + + + + + | Component | Value | Ref Range | Performed | Pathologist | | | | | At | Signature | + + + + + + | White Blood | 9.4 | 4.0 - 11.0 K/uL | [facility] | | | Cells | | | [facility] | | | | | | [facility] | | | | | | [facility] - | | | | | | LABORATORY | | + + + + + + | Red Blood | 4.53 | 4.30 - 5.70 | [facility] | | | Cells | | M/uL | [facility] | | | | | | [facility] | | | | | | C[facility] - | | | | | | LABORATORY | | + + + + + + | Hemoglobin | 12.0 (L) | 13.5 - 18.0 | [facility] | | | | | gm/dL | [facility] | | | | | | [facility] | | | | | | C[facility] - | | | | | | LABORATORY | | + + + + + + | Hematocrit | 37.5 (L) | 40.0 - 51.0 % | [facility] | | | | | | [facility] | | | | | | [facility] | | | | | | [facility] - | | | | | | LABORATORY | | + + + + + + | MCV | 82.9 (L) | 83.0 - 101.0 fL | [facility] | | | | | | [facility] | | | | | | [facility] | | | | | | [facility] - | | | | | | LABORATORY | | + + + + + + | MCH | 26.6 (L) | 28.0 - 35.0 pg | [...] + + + + | RDW-CV | 15.9 (H) | <15.0 % | [facility] | | | | | | [facility] | | | | | | [facility] | | | | | | CENTER - | | | | | | LABORATORY | | + + + + + + | Platelet | 266 | 140 - 440 K/uL | [facility] | | | Count | | | [facility] | | | | | | [facility] | | | | | | CENTER - | | | | | | LABORATORY | | + + + + + + | % | 58.4 | 45 - 75 % | [facility] | | | Neutrophils | | | [facility] | | | | | | MEDICAL | | | | | | CENTER - | | | | | | LABORATORY | | + + + + + + | % | 27.1 | 20 - 45 % | [facility] | | | Lymphocytes | | | [facility] | | | | | | MEDICAL | | | | | | CENTER - | | | | | | LABORATORY | | + + + + + + | % Monocytes | 7.6 | 4 - 12 % | [facility] | | | | | | [facility] | | | | | | [facility] | | | | | | CENTER - | | | | | | LABORATORY | | + + + + + + | % | 5.8 (H) | 0 - 5 % | [facility] | | | Eosinophils | | | [facility] | | | | | | MEDICAL | | | | | | CENTER - | | | | | | LABORATORY | | + + + + + + | % Basophils | 1.1 (H) | 0 - 1 % | [facility] | | | | | | [facility] | | | | | | [facility] | | | | | | CENTER - | | | | | | LABORATORY | | + + + + + + | Absolute | 5.5 | 1.5 - 6.6 K/uL | [facility] | | | Neutrophils | | | [facility] | | | | | | MEDICAL | | | | | | CENTER - | | | | | | LABORATORY | | + + + + + + | Absolute | 2.6 | 0.6 - 3.2 K/uL | [facility] | | | Lymphocytes | | | [facility] | | | | | | MEDICAL | | | | | | CENTER - | | | | | | LABORATORY | | + + + + + + | Absolute | 0.7 | 0.0 - 1.0 K/uL | [facility] | | | Monocytes | | | [facility] | | | | | | MEDICAL | | | | | | CENTER - | | | | | | LABORATORY | | + + + + + + | Absolute | 0.6 (H) | 0.0 - 0.4 K/uL | [facility] | | | Eosinophils | | | [facility] | | | | | | MEDICAL | | | | | | CENTER - | | | | | | LABORATORY | | + + + + + + | Absolute | 0.1 | 0.0 - 0.1 K/uL | [facility] | | | Basophils | | | [facility] | | | | | | MEDICAL | | | | | | CENTER - | | | | | | LABORATORY | | + + + + + + + + | Specimen | + + | Blood specimen | | (specimen) | + + + + + + + | Performing | Address | City/State/Zipcode | Phone Number | | Organization | | | | + + + + + | [facility] | [address] | [place] | [phone] | | [facility] | | [phone] | | | - LABORATORY | | | | + + + + + | [facility] | [address] | [place], [place] | | | [facility] | | [id number] | | | - LABORATORY | | | | + + + + + C-Reactive Protein (09/18/2013 2:42 PM PDT) + + + + + + | Component | Value | Ref Range | Performed | Pathologist | | | | | At | Signature | + + + + + + | CRP | 25.7 (H)Comment: Levels | <8.0 mg/L | [facility] | | | | >8.0 mg/L indicate | | [facility] | | | | possible infection, | | MEDICAL | | | | trauma,cardiac infarct | | CENTER - | | | | or neoplastic | | LABORATORY | | | | proliferation. | | | | + + + + + + + + | Specimen | + + | Blood specimen | | (specimen) | + + + + + + + | Performing | Address | City/State/Zipcode | Phone Number | | Organization | | | | + + + + + | [facility] | [address] | [place] | [phone] | | [facility] | | [address] | | | - LABORATORY | | | | + + + + + | [facility] | [address] | [place] | | | [facility] | | [phone], [facility] | | | - LABORATORY | | | | + + + + + Hemoglobin A1C (09/18/2013 2:42 PM PDT) + + + + + + | Component | Value | Ref Range | Performed | Pathologist | | | | | At | Signature | + + + + + + | Hemoglobin | 6.4 (H)Comment: | 4.3 - 5.8 % | [facility] | | | A1c | DIABETIC PATIENT RANGES: | | [facility] | | | | 6.2-7.0% = Well | | MEDICAL | | | | Controlled | | CENTER - | | | | | | LABORATORY | | | | 7.0-9.0% = | | | | | | Intermediate | | | | | | | | | | | | >9.0% = | | | | | | Poorly Controlled | | | | + + + + + + + + | Specimen | + + | Blood specimen | | (specimen) | + + + + + + + | Performing | Address | City/State/Zipcode | Phone Number | | Organization | | | | + + + + + | [facility] | [address] | [place] | [phone] | | [facility] | | [address] | | | - LABORATORY | | | | + + + + + | [facility] | [address] | [place], [place] | | | [facility] | | [phone], [facility] | | | - LABORATORY | | | | + + + + + documented in this encounter Visit Diagnoses + + | Diagnosis | + + | Chronic wound of extremity - Primary Late effect of open wound of extremities without | | mention of tendon injury | + + | Prediabetes Other abnormal glucose | + + | Screening, lipid Screening for lipoid disorders | + + | Need for influenza vaccination Need for prophylactic vaccination and inoculation | | against influenza | + + documented in this encounter"
--- OUTSIDE RECORDS SUMMARY | ~2020-07-13 | XMS | Encounter Summary ---
Demographics + + + | Address | [address] | | | [place] [address] | + + + | Home Phone | | + + + | Preferred Language | Unknown | + + + | Marital Status | Single | + + + | Worship Affiliation | Unknown | + + + | Race | White | + + + | Ethnic Group | Not or | + + + Author + + + | Author | [facility] | | | and [place] | + + + | Organization | [facility] | | | and [place] | + + + | Address | Unknown | + + + | Phone | Unavailable | + + + Support + + + + + | Name | Relationship | Address | Phone | + + + + + | Mabel Eisenberg | ECON | [address] | | | | | [place] [address] | | + + + + + Care Team Providers + +------+ + | Care Vp Outcomes Name | Role | Phone | + [...] | | | | glenoid | | [phone] | | | | | labrum | | Phone: | | | | | lesion of | | [phone] | | | | | left | | Fax: | | | | | shoulder, | | [phone] | | | | | initial | [...] | | | | | | | [place] SHLDR | | | | | | | ARTHROSCOP,S | | | | | | | URG,REPAIR,S | | | | | | | LAP LESION | | | | | | | [place] SHLDR | | | | | | | ARTHROSCOP,S | | | | | | | URG,CAPSULOR | | | | | | | RHAPHY | | | +--------+--------+ + + + + Encounter Details +--------+---------+ + + + | Date | Type | Department | Care Team | Description | +--------+---------+ + + + | 10/08/ | Surgery | [facility] | Peng Murguia | Left Shoulder | | 2016 | | [facility] | J, DO [address] | Arthroscopy w/ | | | | [address] | [address] [place], [place] | Labral Repair and | | | | [place], [place] | [address] | Capsular Shift | | | | [address] | [phone] | | | | | [phone] | | | +--------+---------+ + + + [...] + + + | Blood Pressure | - | - | | + + + + + | Pulse | 64 | 10/08/2016 10:00 AM | | | | | PST | | + + + + + | Temperature | 36.6 C (97.9 F) | 10/08/2016 10:00 AM | | | | | PST | | + + + + + | Respiratory Rate | 18 | 10/08/2016 10:00 AM | | | | | PST | | + + + + + | Oxygen Saturation | 97% | 10/08/2016 10:00 AM | | | | | PST | | + + + + + | Inhaled Oxygen | - | - | | | Concentration | | | | + + + + + | Weight | 162.8 kg (359 lb) | 10/08/2016 10:00 AM | | | | | PST | | + + + + + | Height | 185.4 cm (6' 1") | 10/08/2016 10:00 AM | | | | | PST | | + + + + + | Body Mass Index | 47.36 | 10/08/2016 10:00 AM | | | | | PST | | + + + + + documented in this encounter Discharge Instructions Instructions Peng Murguia DO - 10/08/2016[facility] Post-op Instructions - Shoulder Surgery The following instructions are meant to guide you following any shoulder surgery until your first post-operative visit 7-12 days later. For any problems or questions, please call our office at [phone], Tuesday through Tuesday, 9:00 am - 5:00 pm. 1) Sleep at least 45 degrees upright from the horizontal position (there is less pain and s welling that way) until comfortable laying flat. A recliner works best. 2) Ice the shoulder for at least the first 3-5 days. 3) Keep the dressing clean and dry for 2 days. You may remove the dressing and shower for t he first time, 2 days after surgery. Then cover your incisions with gauze or band-aids depen ding on incision size. Do not immerse your wound in a bath, pool, or hot tub. Do not put oin tments, peroxide or creams on your incisions 4) Begin pendulum exercises the next day after your surgery. Stand upright and let your arm dangle at your side. Gentle 6 to 12 inch circles (let gravity do the work) for 1-2 minutes, then put the arm back in the sling. Repeat 4-6 times daily. 5) Remain in your sling at all times, except when you are showering or doing your pendulum exercises. 6) Unless you enjoy shoulder surgery so much that you want to do it again, please do not re ach / push / pull / lift / or carry anything with your operative arm. Writing and typing (wi th arm in the sling) are about the only appropriate and safe uses of your arm. 7) Take your pain medications on a regular scheduled dose (every 4-6 hours) for the first 2 4 hours, starting the moment you get home. When the nerve block wears off, it is usually alfonso y abrupt. You will be chasing the pain (bad strategy) if you are not already medicated. 8) After the first 24 hours, you can adjust your intake of pain medications on an as needed basis. Try not to completely cut off all medications at once. 9) All medicine refills must be handled during regular business hours. On-call doctors afte r hours and on week-ends don't know you and will not give you any refills. These instructions supersede any conflicting orders that you may have received from [facility], advice from friends, family members, [employer] leaders, [employer] clerks, conchita carballo, Reyna, Dr. Nguyen, Dr. Peguero, sports heroes, etc. If unsure, please call our office. Thank you, Peng Murguia D.O. [facility] [address] [place] [address] documented in this encounter Medications at Time of Discharge + + + +---------+ + + | Medication | Sig | Dispensed | Refills | Start | End Date | | | | | | Date | | + + + +---------+ + + | acetaminophen | Take 650 mg by mouth | | 0 | | | | (TYLENOL) 325 mg | every 4 hours as | | | | 7 | | tablet | needed for Pain. | | | | | + + + +---------+ + + | acyclovir | Take 1 tablet by | 25 | 2 | 06/05/20 | | | (ZOVIRAX) 400 MG | mouth 5 times daily | tablet | | 13 | 7 | | tabletIndications: | for 5 days. 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 | | | | | | mg per tablet | | | | | | + + + +---------+ + + documented as of this encounter H&P Shoshana Isidro PA-C - 10/06/2016 10:21 AM PSTSubjective Left Shoulder Pain, Instability History of Present Illness This 31 year old RHD male, referred by Dr. Dudley, with left shoulder pain and instabilit y. Patient is unsure how long the shoulder has been bothering him. He is unable to describe or recall any specific injury or incident that may have occurred. He complains of constant p ain deep in the shoulder. He rates his pain at a 3/10. His pain does wake him from sleep at night if he lays on the shoulder. He reports that he usually sleeps in a recliner chair. Agg ravating factors include overhead activities. He is currently taking Advil as needed for his pain. He states that his shoulder does feel unstable. He has experienced multiple episodes of instability with many reductoins and reports that he is able to self-reduce at this point . He has not had injections in the shoulder. He participated in physical therapy about a 1 y ear ago at [facility] and did not experience relief. He had x-ray s and an MRI at [facility], ordered by Dr. Dudley. Review of Systems Constitutional: no fever and no chills. . The patient presents with complaints of left shoulder pain. Integumentary: no rashes and no skin lesions. Family History Mother Family history of Back problem Family history of hypertension (Z82.49) Current Meds Spironolactone-HCTZ 25-25 MG Oral Tablet; Take one tablet every morning for leg swelling; Therapy: [id number] to (Last Rx:[id number]) Requested for: [id number] Ordered Allergies Cephalexin CAPS Vitals Vitals Panel [Data Includes: Current Encounter] Recorded: 06Oct2016 09:08AM Heart Rate: 68 Blood Pressure: 132 / 86 Height: 6 ft 1 in Weight: 360.4 lb BMI Calculated: 47.55 BSA Calculated: 2.76 Physical Exam Very large 31yo male seen with mom today. He has obvious developmental disabilities but an swers most questions with his mother supplementing his answers Neurologic: Orientation: oriented to person and oriented to place. Memory: short term memory intact and remote memory intact. Attention: the attention span was normal. Observed mood and affect was flat. Cranial Nerves:. the cranial nerves were intact. Sensory exam:. the sensory exam was normal. light touch was intact. Coordination: balance was intact. gait is normal. Biceps: right 2+, left 2+. Triceps: right 2+, left 2+. Brachioradialis: right 2+, left 2+. Patella: right 2+, left 2+. Ankle Jerk: right 2+, left 2+. Cervical Spine: no deformity, erythema, ecchymosis, edema, or tenderness, ROM within normal limits in all planes, strength within normal limits in all planes and stability within norm al limits. Left Shoulder: Appearance: no AC joint hypertrophy, no AC joint step-off, no superior migration of the pro ximal portion of the clavicle, no proximal clavicle deformity, no midshaft clavicle deformit y, no deformity, does not appear dislocated, no ecchymosis, no erythema, no scapular winging , no skin blanching, no skin tenting and no swelling. Tenderness: bicipital groove, but not the AC joint, not the deltoid, not the subacromial b ursa, not the supraspinatus muscle, not the greater tuberosity, not the lesser tuberosity an d all other anatomic structures non-tender. Forward flexion: normal active ROM, painful, normal passive ROM and 5/5 strength. Extension: normal active ROM, not painful, normal passive ROM and 5-/5 strength. Abduction: normal active ROM, painful, normal passive ROM and 5-/5 strength. Adduction: normal active ROM, not painful, normal passive ROM and 5/5 strength. Internal rotation: normal active ROM, painful, normal passive ROM and 5/5 strength. External rotation: normal active ROM, painful, normal passive ROM and 5-/5 strength. Rotator Cuff: negative Painful Arc, negative Garcia test, negative Neer test, negative Tim p Arm test and negative Empty Can test. Labrum and Stability: positive Ross's test, positive Anterior-Posterior Slide and positiv e Apprehension test, but negative Sulcus sign. AC Joint: negative AC provocation and negative Scarf test. Biceps Testing: negative Yergason's test and negative Speed's test. Right Shoulder: Appearance: no AC joint hypertrophy, no belly of the biceps bernadette deformity, no superior m igration of the proximal portion of the clavicle, no proximal clavicle deformity, no midshaf t clavicle deformity, no deformity, no ecchymosis, no erythema, no scapular winging, no skin blanching, no skin tenting and no swelling. Tenderness: None, not the AC joint, not the bicipital groove, not the deltoid, not the scap armani, not the subacromial bursa, not the supraspinatus muscle, not the trapezius, not the gre ater tuberosity and not the lesser tuberosity. Palpatory Findings: no crepitus, no warmth and no masses. Forward flexion: normal active ROM, not painful, normal passive ROM, not painful and 5/5 st rength. Extension: normal active ROM, not painful, normal passive ROM, not painful and 5/5 strength . Abduction: normal active ROM, not painful, normal passive ROM, not painful and 5/5 strength . Adduction: normal active ROM, not painful, normal passive ROM, not painful and 5/5 strength . Internal rotation: normal active ROM, not painful, normal passive ROM, not painful and 5/5 strength. External rotation: normal active ROM, not painful, normal passive ROM, not painful and 5/5 strength. Rotator Cuff: negative Painful Arc, negative Garcia test, negative Neer test, negative Tim p Arm test and negative Empty Can test. Labrum and Stability: negative Ross's test, negative Anterior-Posterior Slide, negative S ulcus sign and negative Apprehension test. AC Joint: negative AC provocation and negative Scarf test. Biceps Testing: negative Yergason's test and negative Speed's test. HEART: Regular. LUNGS: Clear. ABDOMEN: Soft. Nontender, nondistended. Positive bowel tones x4. NEURO: Intact without lateralizing deficits. Results/Data Views: complete shoulder series of the left shoulder. Findings: no fracture, no dislocation, no bony lesions, the soft tissues were normal and no rmal joint spaces. Exam description: left shoulder MRI arthrogram. Indications: shoulder instability. Bone/Articular structures: all bony and articular struct ures appeared normal and no degenerative changes were noted. Labrum: anterior labral tear. Rotator cuff: appeared normal and intact and no evidence of i mpingement was noted. Biceps tendon complex: appeared normal and intact. 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 Thes e include, but are not limited to, bleeding; infection; blood clots; breathing difficulty; p ulmonary embolism; need for more surgery; damage to nerves, blood vessels, muscles and other anatomic structures; complications associated with anesthesia, up to and including . T he patient understands that orthopedic implants may be used during the surgery. The patient understands these risks and understands the proposed surgery and has had their questions ans wered. CS-Active Problems 1. Ankle sprain (S93.409A) 2. Cellulitis of left leg (L03.116) 3. Contusion of foot (S90.30XA) 4. Dizziness (R42) 5. Lymphadenopathy (R59.1) 6. Open wound (T14.8) 7. Shoulder strain (S46.919A) 8. Venous stasis (I87.8) Signatures Electronically signed by : Peng Murguia D.O.; Oct 06 2016 9:27AM PST (Author) documented in this encounter Miscellaneous Notes Op Note - Peng Murguia DO - 10/08/2016 2:24 PM Radha Murguia DO Physician .DATE OF OPERATION/PROCEDURE: 10/08/2016. PRIMARY SURGEON: Peng Murguia DO PREOPERATIVE DIAGNOSIS: Left shoulder instability with labral tear POSTOPERATIVE DIAGNOSIS: same PROCEDURE PERFORMED: Arthroscopy left shoulder with anterior labral repair 2. Left shoulder capsular plication DEVICE TEST ENGINEER: Shoshana Nazario PA-C ANESTHESIOLOGIST: Josr Arenas MD ANESTHESIA TYPE: general, intrascalene block ESTIMATED BLOOD LOSS: 10 ml INDICATIONS FOR SURGERY: The patient is a 31 y.o.. yo. male. who has had pain in his.left s houlder over the past several months. he. has had several dislocations over the past several months and now has gross instability. MRI shows large anterior labral tear DESCRIPTION OF OPERATIVE EVENTS: In the preoperative area, the left shoulder was marked. Th e patient was then taken back to the operative suite, and placed in the supine position wher eupon all bony prominences were well padded. Josr Arenas MD had administered an ultrasou nd-guided interscalene block in the preoperative area. At this time, general anesthetic was then administered through an LMA. The patient was laid supine in the right lateral recumbent position and again all bony prominences were well padded including pillows under both knees and an axillary roll. I then examined his operative shoulder under anesthesia, and he. showed full range of motion and gross anterio r instability. The left shoulder was then sterilely prepped and draped in the standard fashion and a surgi donna pause was performed confirming the appropriate surgical site. I then anesthetized the po rtal sites using 0.5% Marcaine with epinephrine and entered the shoulder using a standard po sterior approach. I inspected the shoulder in a stepwise fashion and the following findings were encountered: GLENOHUMERAL JOINT: Grade II chondromalacia glenoid surface The superior labrum was had a large sub- labral foramen but no detachment of the labrum The anterior labrum was avulsed from the 6:00 position to the 10:00 position. There was a drive-through sign noted in the anterior shoulder. ANTERIOR SHOULDER: The subscapularis tendon was normal. The middle glenohumeral ligament wa s normal. There were no loose bodies noted in the anterior shoulder. AXILLARY RECESS: This was large and patulous, and free of loose bodies. POSTERIOR SHOULDER: Posterior labrum was normal. There were no loose bodies noted in the po sterior shoulder. ROTATOR CUFF: The undersurface of the supraspinatus and infraspinatus were normal. At this time the anterior portal was established as well as the low anterior portal. A pro be was then used to define the tear around the anterior labrum. It was visualize to be scar red around the anterior glenoid neck and a [place] was used to free up the anterior labrum off of the anterior glenoid neck. At this time I used a shaver and a rasp to clean soft tissue off of the anterior labrum and also to clean soft tissue off of the anterior glenoid to ach ieve a bleeding bed of bone onto which repair the anterior labrum. Next, through the low anterior portal 3 Arthrex bio suture tack anchors were then inserted into the anterior glenoid at approximately 7:30, 8:30 and 10:00 positions. These were singl e loaded anchors and one arm of the suture was then passed behind the anterior labrum and po rtions of the anterior capsule were also included in this bite. An commercial lines account assistant did a capsular shift by grasping the anterior labrum and shaving it back up onto the anterior glenoid also shifting it superiorly. A sliding, locking not was then tied and back up with half hitches . A probe was then used to ascertain the quality of the repair which was very good. There was still quite a large drive through sign persisting in the anterior shoulder and th e decision was then made to perform a separate procedure - the capsular plication. I perform ed this by passing two 0 PDS sutures through the anterior capsule, just above the subscapula ris, and when these were tied it very nicely eliminated the drive-through sign in the anteri or shoulder and excellent stability was noted with testing. The arthroscopy equipment was removed from the shoulder and the portals were closed using a 3-0 nylon. A sterile dressing was then applied as well as a shoulder immobilizer. A PolarCa re cooling unit will be applied in the postoperative area. The patient was then awakened, ex tubated, and transferred to the recovery room in stable condition, having tolerated this pro cedure well. DICTATED BY: Peng Murguia DO 02/07/2014 10:17 documented in this encounter Plan of Treatment +--------+---------+ + + + | Date | Type | Specialty | Care Team | Description | +--------+---------+ + + + | 07/22/ | Office | Family Medicine | Chance Dudley, | | | 2019 | Visit | | MD Manolo [address] | | | | | | [place] | | | | | | [id number] | | | | | | | | +--------+---------+ + + + documented as of this encounter Procedures + +--------+ + + + | Procedure Name | Priori | Date/Time | Associated Diagnosis | Comments | | | ty | | | | + +--------+ + + + | ARTHROSCOPY SHOULDER | | 10/08/2016 | Acute pain of left | | | W/ OR W/O OPEN | | 12:33 PM | shoulder Superior | | | LABRAL REPAIR | | PST | glenoid labrum | | | | | | lesion of left | | | | | | shoulder, initial | | | | | | encounter Recurrent | | | | | | dislocation of left | | | | | | shoulder | | + +--------+ + + + +---+--------+ | | | | | Specia | | | l | | | Needs | | | | | | Extra- | | | Long | | | Cannul | | | as | +---+--------+ + +--------+ +---+ + | ECG 12 LEAD | Routin | 10/08/2016 | | Results for this | | | e | 10:50 AM | | procedure are in the | | | | PST | | results section. | + +--------+ +---+ + | POC GLUCOSE | Routin | 10/08/2016 | | Results for this | | | e | 10:45 AM | | procedure are in the | | | | PST | | results section. | + +--------+ +---+ + documented in this encounter Results ECG 12 lead (10/08/2016 10:50 AM PST) + + + + + + | Component | Value | Ref Range | Performed | Pathologist | | | | | At | Signature | + + + + + + | VENTRICULAR | 66 | BPM | [facility] | | | RATE EKG | | | | | + + + + + + | ATRIAL RATE | 66 | BPM | [facility] | | + + + + + + | P-R | 148 | ms | [facility] | | | INTERVAL | | | | | + + + + + + | QRS | 82 | ms | [facility] | | | DURATION | | | | | + + + + + + | Q-T | 396 | ms | [facility] | | | INTERVAL | | | | | + + + + + + | Q-T | 415 | ms | [facility] | | | INTERVAL | | | | | | (CORRECTED) | | | | | + + + + + + | P WAVE AXIS | 11 | degrees | [facility] | | + + + + + + | QRS AXIS | 18 | degrees | [facility] | | + + + + + + | T AXIS | 15 | degrees | [facility] | | + + + + + + | INTERPRETAT | Normal sinus rhythm with | | [facility] | | | ION TEXT | sinus arrhythmiaNormal | | | | | | ECGNo previous ECGs | | | | | | availableConfirmed by | | | | | | NOREEN JACKSON MD ([id number]) | | | | | | on 10/10/2016 9:11:11 AM | | | | | | | [...] | | | + +---------+ + + POC Glucose (10/08/2016 10:45 AM PST) + +-------+ + + + | Component | Value | Ref Range | Performed | Pathologist | | | | | At | Signature | + +-------+ + + + | Glucose, | 91 | 70 - 150 mg/dL | [facility] | | | POC | | | [facility] | | [...] ST. | [address] | [place], [place] | [phone] | | [facility] | | [address] | | | - LABORATORY | | | | + + + + + documented in this encounter Visit Diagnoses + + | Diagnosis | + + | Acute pain of left shoulder | + + | Superior glenoid labrum lesion of left shoulder, initial encounter | + + | Recurrent dislocation of left shoulder Recurrent dislocation of shoulder joint | + + documented in this encounter Administered Medications + +--------+ +--------+------+ + | Medication Order | MAR | Action | Dose | Rate | Site | | | Action | Date | | | | + +--------+ +--------+------+ + | bupivacaine 0.5%-EPINEPHrine | Given | 10/08/20 | 20 mLs | | Surgical | | 1:200,000 injection PRN, | | 16 1:54 | | | Site | | Starting 10/08/16 at 1354, | | PM PST | | | | | Intra-op | | | | | | + +--------+ +--------+------+ + +---+---+ | | | +---+---+ + +-------+ +-------+---+ + | EPINEPHrine 1 mg/mL injection | Given | 10/08/20 | 12 mg | | Surgical | | PRN, Starting 10/08/16 at | | 16 1:54 | | | Site | | 1354, Intra-op | | PM PST | | | | + +-------+ +-------+---+ + +---+---+ | | | +---+---+ + +---------+ [...] | 4 mg | | | | 4 mg 4 mg, Intravenous, ONCE | | 16 2:55 | | | | | PRN, Nausea, Starting Fri | | PM PST | | | | | 10/08/16 at 1449, For 1 dose, | | | | | | | Recovery/Phase I | | | | | | + +-------+ +------+---+---+ +---+---+ | | | +---+---+ + +-------+ +------+---+---+ | oxyCODONE (ROXICODONE) tablet | Given | 10/08/20 | 5 mg | | | | 5-20 mg 5-20 mg, Oral, EVERY 3 | | 16 4:06 | | | | | HOURS PRN, Pain, Starting Fri | | PM PST | | | | | 10/08/16 at 1542, First dose must | | | | | | | be the lowest dose, can titrate | | | | | | | to effective dose by repeat of | | | | | | | lowest dose every 60 minutes prn | | | | | | | pain, may not exceed maximum dose | | | | | | | ordered per interval. Use Pasero | | | | | | | Sedation Scale., Post-op/Phase | | | | | | | II | | | | | | + +-------+ +------+---+---+ +---+---+ | | | +---+---+ documented in this encounter
--- OUTSIDE RECORDS SUMMARY | ~2020-07-13 | XMS | Encounter Summary ---
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 [facility] | | | | | mmol/L | [facility] | | | | | | [facility] | | | | | | CENTER - | | | | | | LABORATORY | | + + + + + + | Cl | 104 | 98 - 107 mmol/L | [facility] | | | | | | [facility] | | | | | | [facility] | | | | | | CENTER - | | | | | | LABORATORY | | + + + + + + | CO2 | 29 | 20 - 31 mmol/L | [facility] [...] + + + + | Glucose | 112 (H) | 60 - 106 mg/dL | [...] + + + + | Creatinine | 0.75 | 0.70 - 1.30 | [facility] | | | | | mg/dL | [facility] | | | | | | [facility] | | | | | | CENTER - | | | | | | LABORATORY | | + + + + + + | eGFR, | >60Comment: GLOMERULAR | >=60 | [facility] | | | non- | FILTRATION | mL/min/1.73m2 | [facility] | | | [place] | RATE,ESTIMATED | | MEDICAL | | | | mL/min/1.35d6Euap than | | CENTER - | | [...] + + + + | Calcium | 9.7 | 8.7 - 10.4 | [facility] | | | | | mg/dL | [facility] | | | | | | MEDICAL | | | | | | CENTER - | | | | | | LABORATORY | | + + + + + + | Albumin | 4.5 | 3.2 - 4.8 g/dL | [facility] | | | | | | [facility] | | | | | | [facility] | | | | | | CENTER - | | | | | | LABORATORY | | + + + + + + | Bilirubin | 0.3 | 0.3 - 1.2 mg/dL | [facility] [...] + + + + | AST | 16 | 0 - 34 U/L | [facility] | | | | | | [facility] | | [facility] | | [facility] | | | | | | CENTER - | | | | | | LABORATORY | | + + + + + + | ALT | 38 | 10 - 49 U/L | [facility] | | | | | | [facility] | | | | | | [facility] | | | | | | CENTER - | | | | | | LABORATORY | | + + + + + + | Alkaline | 45 (L) | 46 - 116 U/L | [facility] | | | Phosphatase | | | [facility] | | | | | | MEDICAL | | | | | | CENTER - | | | | | | LABORATORY | | + + + + + + | Globulin | 2.7 | 2.1 - 3.8 g/dL | [facility] | | | | | | [facility] | | | | | | [facility]ICAL | | | | | | CENTER - | | | | | | LABORATORY | | + + + + + + | Albumin/Margot | 1.7 | 0.8 - 1.9 | [facility] | | | bulin Ratio | | | [facility] | | | | | | MEDICAL | | | | | | CENTER - | | | | | | LABORATORY | | + + + + + + | BUN/Creatin | 18.7 | | [facility] | | | ine [...] [address] | [place] | [phone] | | [facility] | | [address] | | | - LABORATORY | | | | + + + + + CBC with Differential (12/26/2019 2:31 AM PST) + + + + + + | Component | Value | Ref Range | Performed | Pathologist | | | | | At | Signature | + + + + + + | White Blood | 6.5 | 4.0 - 11.0 K/uL | [facility] | | | Cells | | [facility] | [facility] | | | | | | CENTER - | | | | | | LABORATORY | | + + + + + + | Red Blood | 4.28 (L) | 4.30 - 5.70 | [facility] [...] | | | | | g/dL | [facility] | | | | | [facility] | | | | | | CENTER - | | | | | | LABORATORY | | + + + + + + | Hematocrit | 37.9 (L) | 40.0 - 51.0 % | [facility] | | | | | | [facility] | | | | | | [facility]ICAL | | | | | | CENTER - | | | | | | LABORATORY | | + + + + + + | MCV | 88.6 | 83.0 - 101.0 fL | [facility] | | | | | | [facility] | | | | | | [facility] | | | | | | CENTER - | | | | | | LABORATORY | | + + + + + + | MCH | 29.0 | 28.0 - 35.0 pg | [facility] | | | | | | [facility] | | | | | | [facility]ICAL | | | | | | CENTER - | | | | | | LABORATORY | | + + + + + + | MCHC | 32.7 | 32.0 - 36.0 | [facility] | | | | | g/dL | [facility] | | | | | | MEDICAL | | | | | | CENTER - | | | | | | LABORATORY | | + + + + + + | RDW-CV | 13.0 | <15.0 % | [facility] | | | | | | [facility] | | | [facility] | | [facility]ICAL | | | | | | CENTER - | | | | | | LABORATORY | | + + + + + + | RDW-SD | 41.9 | 35.1 - 46.3 fL | [facility] | | | | | | [facility] | | | | | | [facility] | | | | | | CENTER - | | | | | | LABORATORY | | + + + + + + | Platelet | 216 | 140 - 440 K/uL | [facility] [...] + + + + | % | 53.2 | 45.0 - 82.0 % | [facility] | | | Neutrophils | | | [facility] | | | | | | MEDICAL | | | | | | CENTER - | | | | | | LABORATORY | | + + + + + + | % | 35.3 | 20.0 - 45.0 % | [facility] | | | Lymphocytes | | | [facility] | | | | | | MEDICAL | | | | | | CENTER - | | | | | | LABORATORY | | + + + + + + | % Monocytes | 6.4 | 4.0 - 12.0 % | [facility] | | | | | | [facility] | | | | | | MEDICAL | | | | | | CENTER - | | | | | | LABORATORY | | + + + + + + | % | 4.4 | 0.0 - 5.0 % | [facility] [...] + + + | % Immature | 0.2 | 0.0 - 0.4 % | [facility] | | | Granulocyte | | | [facility] | | | s | | | MEDICAL | | | | | | CENTER - | | | | | | LABORATORY | | + + + + + + | Absolute | 3.47 | 1.80 - 8.50 | [facility] | | | Neutrophils | | K/uL | [facility] | | | | | | MEDICAL | | | | | | CENTER - | | | | | | LABORATORY | | + + + + + + | Absolute | 2.30 | 0.60 - 3.20 | [facility] | | | Lymphocytes | | K/uL | [facility] | | | | | | MEDICAL | | | | | | CENTER - | | | | | | LABORATORY | | + + + + + + | Absolute | 0.42 | 0.00 - 1.00 | [facility] | | | Monocytes | | K/uL | [facility] | | | | | | MEDICAL | | | | | | CENTER - | | | | | | LABORATORY | | + + + + + + | Absolute | 0.29 | 0.00 - 0.40 | [facility] | | | Eosinophils | | K/uL | [facility] | | | | | | MEDICAL | | | | | | CENTER - | | | | | | LABORATORY | | + + + + + + | Absolute | 0.03 | 0.00 - 0.10 | [facility] | | | Basophils | | K/uL | [facility] | | | | | | MEDICAL | | | | | | CENTER - | | | | | | LABORATORY | | + + + + + + | Absolute | 0.01 | 0.00 - 0.03 | [facility] | | | Immature | | K/uL | [facility] | | | Granulocyte | | | MEDICAL | | | s | | | CENTER - | | | | | | LABORATORY | | + + + + + + | % nRBC | 0 | 0 - 2 per 100 | [facility] | | | | | WBCs | [facility] | | | | | | MEDICAL | | | | | | CENTER - | | | | | | LABORATORY | | + + + + + + | Absolute | 0.00 | 0.00 - 0.01 | [facility] | | | nRBC | | K/uL [...] | + + + + + | [facility] | [address] | [place], [place] | [phone] | | [facility] | | [address] | | | - LABORATORY | | | | + + + + + ECG 12 lead (12/26/2019 2:03 AM PST) + + + + + + | Component | Value | Ref Range | Performed | Pathologist | | | | | At | Signature | + + + + + + | VENTRICULAR | 58 | BPM | [facility] | | | RATE EKG | | | | | + + + + + + | ATRIAL RATE | 58 | BPM | [facility] | | + + + + + + | P-R | 164 | ms | [facility] | | | INTERVAL | | | | | + + + + + + | QRS | 86 | ms | [facility] | | | DURATION | | | | | + + + + + + | Q-T | 432 | ms | [facility] | | | INTERVAL | | | | | + + + + + + | Q-T | 424 | ms | [facility] | | | INTERVAL | | | | | | (CORRECTED) | | | | | + + + + + + | P WAVE AXIS | 39 | degrees | [facility] | | + + + + + + | QRS AXIS | 28 | degrees | [facility] | | + + + + + + | T AXIS | 24 | degrees | [facility] | | + + + + + + | INTERPRETAT | Sinus | | [facility] | | | ION TEXT | bradycardiaModerate | | | | | | voltage criteria for | | | | | | LVH, may be normal | | | | | | variantNonspecific T | | | | | | wave abnormality | | | | | | Inferior leadsWhen | | | | | | compared with ECG of | | | | | | 11-DEC-2019 19:17,No | | | | | | significant change was | | | | | | foundConfirmed by | | | | | | NOREEN JACKSON MD ([id number]) | | | | | | on 12/26/2019 7:04:29 AM | | | | + + [...] + | Diagnosis | + + | Left-sided chest pain - Primary | + + | Gastroesophageal reflux disease, esophagitis presence not specified | + + documented in this encounter Administered Medications + +--------+ +--------+------+------+ | Medication Order | MAR | Action | Dose | Rate | Site | | | Action | Date | | | | + +--------+ +--------+------+------+ | aluminum & magnesium | Given | 12/26/19 | 30 mLs | | | | hydroxide-simethicone (MAALOX | | 20 3:56 | | | | | PLUS REGULAR STRENGTH) 200-200-20 | | AM PST | | | | | mg/5 mL suspension 30 mL 30 mL, | | | | | | | Oral, ONCE, 12/26/19 at 0355, | | | | | | | For 1 dose, Mix lidocaine and | | | | | | | Maalox. Peng wilkerson., | | | | | | + +--------+ +--------+------+------+ +---+---+ | | | +---+---+ + +-------+ +--------+---+---+ | fentaNYL (PF) injection 50 mcg | Given | 12/26/19 | 50 mcg | | | | 50 mcg, Intravenous, EVERY 1 | | 20 2:43 | | | | | HOUR PRN, Pain, Starting Wed | | AM PST | | | | | 12/26/19 at 0212, For 2 doses | | | | | | + +-------+ +--------+---+---+ +---+---+ | | | +---+---+ + +-------+ +--------+---+---+ | iohexol (OMNIPAQUE 350) 350 | Given | 12/26/19 | 70 mLs | | | | mg/mL injection 70 mL 70 mL, | | 20 3:15 | | | | | Intravenous, ONCE PRN, Other, | | AM PST | | | | | Starting 12/26/19 at 0315, For | | | | | | | 1 dose, Cat Scanner | | | | | | + +-------+ +--------+---+---+ +---+---+ | | | +---+---+ + +-------+ +--------+---+---+ | lidocaine (XYLOCAINE) 2% | Given | 12/26/19 | 10 mLs | | | | viscous solution 10 mL 10 mL, | | 20 3:56 | | | | | Oral, ONCE, 12/26/19 at 0355, | | AM PST | | | | | For 1 dose, Mix lidocaine and | | | | | | | MAALOX. Peng wilkerson., | | | | | | + +-------+ +--------+---+---+ +---+---+ | | | +---+---+ + +-------+ +-----+---+---+ | sucralfate (CARAFATE) tablet 1 | Given | 12/26/19 | 1 g | | | | g 1 g, Oral, ONCE, 12/26/19 | | 20 4:50 | | | | | at 0405, For 1 dose, ., | | AM PST | | | | + +-------+ +-----+---+---+ +---+---+ | | | +---+---+ documented in this encounter
--- OUTSIDE RECORDS SUMMARY | ~2020-07-13 | XMS | Encounter Summary ---
Demographics + + + | Address | [address] | | | [place] [address] | + + + | Home Phone | | + + + | Preferred Language | Unknown | + + + | Marital Status | Single | + + + | Sikh Affiliation | Unknown | + + + | Race | White | + + + | Ethnic Group | Not or | + + + Author + + + | Author | [facility] | | | and [place] | + + + | Organization | [facility] | | [...] | | | | | [place] [address] | | + + + + + Care Team Providers + +------+ + | Care Buckle And Button Maker Name | Role | Phone | + +------+ + | Chance Dudley MD | PCP | | + +------+ + Reason for Visit + +--------+ + | Reason | Onset | Comments | | | Date | | + +--------+ + | Care Coordination | 06/25/ | | | | 2018 | | + +--------+ + Encounter Details +--------+ + + + + | Date | Type | Department | Care Team | Description | +--------+ + + + + | 06/25/ | Telephone | [facility] | Chance Dudley, | Care Coordination | | 2019 | | [facility] | [address] | | | | | [address] | [place] | | | | | [place] | [address] | | | | | [address] | | | | | | [phone] | | | +--------+ + + + [...] this encounter Miscellaneous Notes Telephone Encounter - Enid Watson RN - 06/25/2019 7:51 AM PDTTHIS CHART WAS CR EATED IN ERROR. THERE ARE NOW TWO CHARTS ON FILE FOR THIS PATIENT. REAL MRN IS [id number].E lectronically signed by Enid Watson RN at 06/25/2019 7:52 AM PDTdocumented in th is encounter Plan of Treatment +--------+---------+ + + + | Date | Type | Specialty | Care Team | Description | +--------+---------+ + + + | 07/22/ | Office | Family Medicine | Chance Dudley, | | | 2019 | Visit | | MD [address] | | | | | | [place] | | | | | | [address] | | | | | | | | +--------+---------+ + + + documented as of this encounter Visit Diagnoses Not on filedocumented in this encounter"
--- OUTSIDE RECORDS SUMMARY | ~2020-07-13 | XMS | Clinical Summary ---
Demographics + + + | Address | [address] | | | [place] [address] | + + + | Home Phone [...] Author + + + | Author | [facility] | | | and [place] | + + + | Organization | [facility] | | | and [...] | | | | | [place] [address] | | + + + + + Care Team Providers + +------+ + | Care Director Vaccine Name | Role | Phone | + [...] | | | Activ | | (MYCOSTATIN) [id number] | topically 2 times | | | [...] [place] | | | | | | [id number] | | | | | | | [...] | | 08/27/ | AR-193 | | [id number]: Qty: 1 on | c | Should | - ARTX | | 2016 | 4BCFT | | 10/08/2016 by Balde, | | er | | | | / | | Peng Santana DO at [facility] | | | | | | /[id number] | | [facility] | | | | | | 4 | | CENTER | | | | | | | + +--------+--------+ +--------+--------+--------+ | Anchr [employer]0 - | Generi | Left: | [employer] | | 08/27/ | AR-193 | | [id number]: Qty: 1 on | c | Should | - ARTX | | 2016 | 4BCFT | | 10/08/2016 by Blade, | | er | | | | / | | Peng Santana DO at [facility] | | | | | | /[id number] | | [facility] | | | | | | 0 | | CENTER | | | | | | | + +--------+--------+ +--------+--------+--------+ | Elmerr [employer] 3[employer]0 - | Generi | Left: | [employer] | | 04/27/ | AR-193 | | [id number]: Qty: 1 on | c | Should | - ARTX | | 2017 | 4BCFT | | 10/08/2016 by Blade, | | er | | | | / | | Peng Santana DO at [facility] | | | | | | /[id number] | | [facility] | | | | | | 852 [...] | | | | | | n [place] | | | | | + +--------+ [...] MD, 06/09/2020 10:31 | | | AM PDTWSV[facility] | | |IMPRESSION: Spirometry is consistent [...] performed: 05/30/2020 | | |Electronically signed by: Madison Tavarez MD, MD 06/09/2020 10:31 AM | | |PDT | | |[facility] | | + + + CBC with [...] [address] | [place] | [phone] | | [facility] | | [address] | | | - LABORATORY | | [...] + | [facility] | [address] | [place] | [phone] | | [facility] | | [address] | | | - LABORATORY | | [...] | mL/min/1.73m2 | [facility] | | | [place] | RATE,ESTIMATED | | MEDICAL | | | | mL/min/1.91v8Krpt than | | CENTER - | | [...] [address] | [place] | [phone] | | [facility] | | [address] | | | - LABORATORY | | [...] MD | | | | | | ([id number]) on 05/19/2020 | | | | | [...] sent by | [facility] | | [facility] with no significant discrepancy on 04/20/2020 [...] preliminary report was sent by | | [facility] with no significant discrepancyon 04/20/2020 2:59 [...] | |A preliminary report was sent by [facility] with no significant discrepancy | |on [...] findings. A preliminary report was sent by [facility] | | | [facility] with no significant [...] | A preliminary report was sent by [facility] with no significant discrepancy | | on [...] - 1.030 | [facility] | | | [place], | | | [facility] | | [...] | | Urine | | | [facility] | | | | | | MEDICAL [...] [address] | [place] | [phone] | | [facility] | | [address] | | | - LABORATORY | | [...] ST. | [address] | [place], [place] | [phone] | | [facility] | | [address] | | | - LABORATORY | | [...] | A preliminary report was sent by [facility] with no significant | | | discrepancy [...] preliminary report was sent by | | [facility] with no significant discrepancyon 04/20/2020 3:01 [...] | |A preliminary report was sent by [facility] with no significant discrepancy | |on 04/20/2020 [...] + | [facility] | [address] | [place] | [phone] | | [facility] | | [address] | | | - LABORATORY | | [...] + | [facility] | [address] | [place] | [phone] | | [facility] | | [address] | | | - LABORATORY | | [...] [address] | [place] | [phone] | | [facility] | | [address] | | | - LABORATORY | | [...] [address] | [place] | [phone] | | [facility] | | [address] | | | - LABORATORY | | [...] [address] | [place] | [phone] | | [facility] | | [address] | | | - LABORATORY | | [...] [address] | [place] | [phone] | | [facility] | | [address] | | | - LABORATORY | | [...] [address] | [place] | [phone] | | [facility] | | [address] | | | - LABORATORY | | [...] [address] | [place] | | | [facility] | | [address] | | | - BLOOD BANK | [...] use as of January 24, | | [facility] | | | | 2018. Check reference [...] ST. | [address] | [place], [place] | [phone] | | [facility] | | [address] | | | - LABORATORY | | [...] +--------+ +---------+--------+ | MEDICARE | MEDICA | [id number] | | [phone] | | Medica | | | RE | | 009-Pr | 5 | | re | | | PART A | | esent | | | | | | AND B | | | | | | + +--------+ +--------+ +---------+--------+ | [employer] | [employer] | [id number] | 11/28/19 | [phone] | | Medica [...] | 1984 | [phone] | [place] [address] | | | cristin | | | 7 (Home) | | + +--------+ +--------+ + + | Stiven Davila | Third | Self | [birth year] | NEED ADDRESS | | | [employer] | | 1984 | [phone] | [place] [address] | | | Liabil | | | 7 (Home) | | | | ity | | | | | + +--------+ +--------+ + + | Stiven Davila | Third | Self | [birth year] | | [address] | | | [employer] Party | | 1984 | [phone] | [place] [address] | | | Liabil | | | 7 (Home) | | | | ity | | | | | + +--------+ +--------+ + + Advance Directives + + + + + | Type | Date Recorded | Patient | Explanation | | | | 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
--- OUTSIDE RECORDS SUMMARY | ~2020-07-13 | XMS | Encounter Summary ---
Demographics + + + | Address | [address] | | | [place] [address] | + + + | Home Phone | | + + + | Preferred Language | Unknown | + + + | Marital Status | Single | + + + | Denominational Affiliation | Unknown | + + + | Race | White | + + + | Ethnic Group | Not or | + + + Author + + + | Author | [facility] | | | and [place] | + + + | Organization | [facility] | | [...] | | | | | [place] [address] | | + + + + + Care Team Providers + +------+ + | Care Federal Judge Name | Role | Phone | + +------+ + | Chance Dudley MD | PCP | | + +------+ + Reason for Visit + +--------+ + | Reason | Onset | Comments | | | Date | | + +--------+ + | Follow-up | 07/19/ | | | | 2018 | | + +--------+ + Encounter Details +--------+ + + + + | Date | Type | Department | Care Team | Description | +--------+ + + + + | 07/19/ | Telephone | [facility] | Nadia Claire, | Follow-up | | 2019 | | [facility] [place] | 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 elephone Encounter - Jaky Michael RN - 08/02/2019 12:39 PM PDTTried to call patient. Voicemail left. P DTTelephone Encounter - Sujatha Chaparro RN - 07/26/2019 8:45 AM PDTTried to call annie t. Left voicemail to call back. elephone Encounter - Jaky Michael RN - 07/24/2019 8:59 AM PDTAttempted to reach patient. Voicemail left. 8: 59 AM PDTTelephone Encounter - Jaky Michael RN - 07/20/2019 10:[address] Voicemail left for patient. 10: 52 AM PDTTelephone Encounter - Nadia Claire ARNP - 07/19/2019 7:55 PM PDTPlease call Stiven. I saw him today for an abnormal sensation he's been having when he stands (denied dizziness , lightheadedness, vertigo). I was concerned he might be anemic and ordered some lab work. Vinny moon did not have this done today. He does not need to be fasting. Please encourage him to have this done at his earliest convenience. If he is having any weakness, fainting, or abdominal pain, please let me know. Electronical ly signed by FLORENCE Cross at 07/19/2019 8:03 PM PDTdocumented in this encounter Plan of Treatment +--------+---------+ [...]
--- OUTSIDE RECORDS SUMMARY | ~2020-07-13 | XMS | Encounter Summary ---
Demographics + + + | Address | [address] | | | [place] [address] | + + + | Home Phone | | + + + | Preferred Language | Unknown | + + + | Marital Status | Single | + + + | Spiritism Affiliation | Unknown | + + + | Race | White | + + + | Ethnic Group | Not or | + + + Author + + + | Author | [facility] | | | and [place] | + + + | Organization | [facility] | | | [...] [place] | | | | | [place] [address] | | + + + + + Care Team Providers + +------+ + | Care Toll Line Inspector Name | Role | Phone | + +------+ + | Chance Dudley MD | PCP | | + +------+ + Reason for Visit + + + | Reason | Comments | + + + | Emesis | | + + + | GI Bleeding | | + + + | Chest Pain | | + + + Encounter Details +--------+ + + + + | Date | Type | Department | Care Team | Description | +--------+ + + + + | 12/02/ | Hospital | [facility] | Eric Almazan MD | Aviva-Toro tear | | 2019 - | Encounter | [facility] | [address] | (Primary Dx); | | | | [address] | [place] | Hematemesis with | | | | [place] [address] | [id number] | nausea; Learning | | 2019 | | [phone] | | disability; S/P | | | | | Joselito Wallace MD | laparoscopic sleeve | | | | | [address] | gastrectomy; | | | | | [place] | Klinefelter | | | | | [id number] | syndrome; | | | | | | Aviva-Toro tear | +--------+ + + + + Social [...] + + + | Blood Pressure | 105/61 | 12/04/2019 7:23 AM | | | | | PST | | + + + + + | Pulse | 51 | 12/04/2019 7:23 AM | | | | | PST | | + + + + + | Temperature | 36.2 C (97.1 F) | 12/04/2019 7:23 AM | | | | | PST | | + + + + + | Respiratory Rate | 16 | 12/04/2019 7:23 AM | | | | | PST | | + + + + + | Oxygen Saturation | 98% | 12/04/2019 7:23 AM | | | | | PST | | + + + + + | Inhaled Oxygen | - | - | | | Concentration | | | | + + + + + | Weight | 119.6 kg (263 lb | 12/02/2019 5:08 PM | | | | 10.7 oz) | PST | | + + + + + | Height | 185.4 cm (6' 1") | 12/02/2019 11:11 AM | | | | | PST | | + + + + + | Body Mass Index | 34.79 | 12/02/2019 11:11 AM | | | [...] + documented as of this encounter Discharge Summaries Anival Hightower MD - 12/04/2019 7:27 AM PSTFormatting of this note might be different f rom the original. DISCHARGE SUMMARY Patient Name: Stiven Davila : 1985 Date of Admission: 12/02/2019 Date of Discharge: 12/04/19 Admitting Physician: Joselito Wallace MD Discharging Physician: Anival Hightower MD Primary Care Provider: Chance Dudley MD Discharge Diagnoses: Principal Problem: Hematemesis with nausea Active Problems: Aviva-Toro tear Learning disability S/P laparoscopic sleeve gastrectomy Resolved Problems: * No resolved hospital problems. * Consultants: Dr. Orellana of GI Procedures: 12/[address] Keren Orellana: Findings: The examined esophagus was normal. A small non-bleeding Aviva-Toro tear with no stigmata of recent bleeding was found. Localized mild inflammation characterized by congestion (edema), erosions and erythema was found on the greater curvature of the stomach and in the gastric antrum. Biopsies were taken with a cold forceps for Helicobacter pylori testing. The examined duodenum was normal. Impression: - HEMATEMESIS DUE TO Aviva-Toro tear, LOW RISK TO REBLEED. - MILD EROSIVE Gastritis. Biopsied. Recommendation: - [facility]. - Soft diet. - Continue present medications. BID PPI FOR 7 DAYS THEN ONCE DAILY FOR 3 MOS - Await pathology results. - Return to GI office in [address] Abdomen Pelvis W Contrast Result Date: 12/02/2019 EXAM: CT PULMONARY ANGIOGRAM 12/02/2019 11:04 AM HISTORY: PE suspected, low pretest prob C hest pain pleuritic leg pain COMPARISON: CT chest abdomen and pelvis 05/27/2018 TECHNIQUE: Axial images are performed through the chest following the uneventful intravenous administra tion of 125 mL Omnipaque-350 contrast, with timing of the contrast bolus optimized for opaci fication of the pulmonary arteries. Multiplanar reformations are also performed. This is fo llowed by imaging through the abdomen and pelvis. DOSE: DLP 323.21 mGy-cm FINDINGS: Scattere d artifact due to dose conservation technique utilized as the patient was having 2 sequentia l examinations. PULMONARY ANGIOGRAM: Pulmonary arteries: The average Hounsfield units in the main pulmonary artery are greater than 500. There is bolus heterogeneity and respiratory m otion degradation. No enlargement of the main pulmonary arteries. No definite filling defe cts to suggest pulmonary embolism. Heart and Mediastinum: No aneurysmal dilatation of the th oracic aorta. Dissection cannot be excluded given the timing of the contrast bolus. No card iac chamber enlargement. No pericardial thickening. No pneumomediastinum. There are calcif ied mediastinal lymph nodes. Lungs: No pleural effusion. No pneumothorax. No consolidation . The airways are patent. No significant noncalcified pulmonary nodules. Chest wall: No ax illary or visible supraclavicular lymphadenopathy. Bone: No suspicious lytic or blastic bone lesions. No acute osseous abnormalities. There is a healed sternal fracture. ABDOMEN AND PELVIS: LIVER: The liver is unremarkable. Fatty infiltration of the liver is difficult to e xclude. There are no focal liver lesions. Mild hepatomegaly. GALLBLADDER: The gallbladder is surgically absent. The intrahepatic and extrahepatic biliary ducts are appropriate given the postsurgical state. SPLEEN: The spleen is unremarkable. There is no splenomegaly. PANC REAS: The pancreas is unremarkable. The pancreatic duct is not dilated. ADRENALS: No adrena l enlargement. No adrenal masses. KIDNEYS: The kidneys are symmetrically enhancing. There are no focal renal lesions. Nephrolithiasis is not excluded given the presence of contrast in the collecting systems. There is no obstructive uropathy. BOWEL: There are scattered div erticula. No evidence for diverticulitis. No appendicitis. Gastric reduction surgery area s No gastrointestinal tract obstruction. VASCULATURE AND LYMPH NODES: There is no aneurysma l dilatation of the abdominal aorta. There is no pelvic or abdominal lymphadenopathy. BLADD ER: The bladder is unremarkable. BONES: There are no acute osseous abnormalities. There are no suspicious lytic or blastic bone lesions. OTHER: There is no free fluid. There is no fr ee air. No evidence for pulmonary embolism. No CT evidence for acute disease in the chest. Gastric reduction changes. No evidence for gastrointestinal tract obstruction or perforation. Divert iculosis without active diverticulitis. Dictated and Signed by: Zeeshan Isbell MD Electro nically signed: 12/02/2019 1:24 PM Xr Chest Ap Portable Result Date: 12/02/2019 EXAM: XR CHEST AP PORTABLE dated 12/02/2019 11:53 AM HISTORY: EMESIS GI BLEEDING CHEST PAIN C omparison: 06/30/2019 TECHNIQUE: A single portable view of the chest. FINDINGS: The lungs are symmetrically aerated. They are clear. There are no large pleural effusions. There is no pneumothorax. The cardiac and mediastinal contours are not enlarged. No acute osseous abno rmalities. No radiographic evidence for acute disease in the chest. Dictated and Signed by: Zeeshan ward MD Electronically signed: 12/02/2019 1:[address] Angiogram Pulmonary W Contrast Result Date: 12/02/2019 EXAM: CT PULMONARY ANGIOGRAM 12/02/2019 11:04 AM HISTORY: PE suspected, low pretest prob C hest pain pleuritic leg pain COMPARISON: CT chest abdomen and pelvis 05/27/2018 TECHNIQUE: Axial images are performed through the chest following the uneventful intravenous administra tion of 125 mL Omnipaque-350 contrast, with timing of the contrast bolus optimized for opaci fication of the pulmonary arteries. Multiplanar reformations are also performed. This is fo llowed by imaging through the abdomen and pelvis. DOSE: DLP 323.21 mGy-cm FINDINGS: Scattere d artifact due to dose conservation technique utilized as the patient was having 2 sequentia l examinations. PULMONARY ANGIOGRAM: Pulmonary arteries: The average Hounsfield units in the main pulmonary artery are greater than 500. There is bolus heterogeneity and respiratory m otion degradation. No enlargement of the main pulmonary arteries. No definite filling defe cts to suggest pulmonary embolism. Heart and Mediastinum: No aneurysmal dilatation of the th oracic aorta. Dissection cannot be excluded given the timing of the contrast bolus. No card iac chamber enlargement. No pericardial thickening. No pneumomediastinum. There are calcif ied mediastinal lymph nodes. Lungs: No pleural effusion. No pneumothorax. No consolidation . The airways are patent. No significant noncalcified pulmonary nodules. Chest wall: No ax illary or visible supraclavicular lymphadenopathy. Bone: No suspicious lytic or blastic bone lesions. No acute osseous abnormalities. There is a healed sternal fracture. ABDOMEN AND PELVIS: LIVER: The liver is unremarkable. Fatty infiltration of the liver is difficult to e xclude. There are no focal liver lesions. Mild hepatomegaly. GALLBLADDER: The gallbladder is surgically absent. The intrahepatic and extrahepatic biliary ducts are appropriate given the postsurgical state. SPLEEN: The spleen is unremarkable. There is no splenomegaly. PANC REAS: The pancreas is unremarkable. The pancreatic duct is not dilated. ADRENALS: No adrena l enlargement. No adrenal masses. KIDNEYS: The kidneys are symmetrically enhancing. There are no focal renal lesions. Nephrolithiasis is not excluded given the presence of contrast in the collecting systems. There is no obstructive uropathy. BOWEL: There are scattered div erticula. No evidence for diverticulitis. No appendicitis. Gastric reduction surgery area s No gastrointestinal tract obstruction. VASCULATURE AND LYMPH NODES: There is no aneurysma l dilatation of the abdominal aorta. There is no pelvic or abdominal lymphadenopathy. BLADD ER: The bladder is unremarkable. BONES: There are no acute osseous abnormalities. There are no suspicious lytic or blastic bone lesions. OTHER: There is no free fluid. There is no fr ee air. No evidence for pulmonary embolism. No CT evidence for acute disease in the chest. Gastric reduction changes. No evidence for gastrointestinal tract obstruction or perforation. Divert iculosis without active diverticulitis. Dictated and Signed by: Zeeshan Isbell MD Electro nically signed: 12/02/2019 1:24 PM Labs in the last 24 hours: No results found for this or any previous visit (from the past 24 hour(s)). Reason for Admission: Please refer to the H&P for full details. In short, this is a 34 y.o. male with a history of gastric sleeve in 2018, who presented with hematemesis and chest pain. Problem-Oriented Hospital Course: (from Dr. Khanna's note) Aviva-Toro tear/Gastritis/Hematemesis Patient presented after hematemesis, found on EGD (Dr Orellana) 12/03 to have small non-bleedin g Aviva-Toro tear. Mild erosive gastritis noted, biopsied. Blood counts stable. Bleeding has not recurred here. - advance diet - twice a day PPI for 7d days then once daily for 3 months per GI - follow up with GI in 4 months Nausea He reported nausea and dizziness post-procedure. Anti-emetics ordered. This resolved, and was able to tolerate food without problem at discharge. Ordered ondansetron PRN at dischar . Code Status: Full Code Disposition: Home Discharge Condition: Stable Lungs clear Heart RRR Abd soft, NT, bowel sounds present Ext WWP Follow-up Information Chance Dudley MD On 12/11/2019. Specialty: Family Medicine Why: This is your hospital follow up appointment, scheduled for 3:00, Please check in at 2 :45. Contact information: [address] [place] [address] Discharge Medications New Medications Details ondansetron 4 mg disintegrating tablet Take 1 tablet by mouth every 8 hours as needed for Nausea or Vomiting. aka: ZOFRAN ODT pantoprazole 40 mg tablet Take 1 tablet by mouth 2 times daily (before meals) for 7 days, THEN 1 tablet every mornin g (before breakfast) for 90 days. aka: PROTONIX Start: December 04, 2019 Changed Medications Details acyclovir 400 MG tablet take 1 tablet by mouth five times a day AT FIRST SIGNS OF COLD SORE OUTBREAK What changed: Another medication with the same name was removed. Continue taking this medi cation, and follow the directions you see here. aka: ZOVIRAX Unchanged Medications Details BARIATRIC MULTIVITAMINS/IRON PO Take 1 tablet by mouth Daily. Chewables. For post-bariatric surgery nystatin 529045 UNIT/GM powder Apply 1 Application topically 2 times daily. aka: MYCOSTATIN testosterone 12.5 mg/1.25 g actuation (1%) gel Apply 4 Act topically Daily. Studies With Pending Results: None Less than 30 minutes were spent on discharge and coordination of post-hospital care. Electronically signed by: Anival Hightower MD, 12/04/2019 7:32 AM [facility] documented in this encounter Discharge Instructions Instructions Anival Hightower MD - 12/04/2019Formatting of this note might be different f rom the original. Upper GI Endoscopy During endoscopy, a long, flexible tube is used to view the inside of your upper GI tract. Upper GI endoscopy allows your healthcare provider to look directly into the beginning of y our gastrointestinal (GI) tract. The esophagus, stomach, and duodenum (the first part of the small intestine) make up the upper GI tract. Before the exam Follow these and any other instructions you are given before your endoscopy. If you don t follow the healthcare provider s instructions carefully, the test may need to be canceled or done over: Don't eat or drink anything after midnight the night before your exam. If your exam is i n the afternoon, drink only clear liquids in the morning. Don't eat or drink anything for8 hours before the exam. In some cases, you may be able to take medicines with sips of water until 2 hours before the procedure. Speak with your healthcare provider about this. Bring your X-rays and any other test results you have. Because you will be sedated, arrange for an adult to drive you home after the exam. Tell your healthcare provider before the exam if you are taking any medicines or have an y medical problems. The procedure Here is what to expect: You will lie on the endoscopy table. Usually patients lie on the left side. You will be monitored and given oxygen. Your throat may be numbed with a spray or gargle. You are given medicine through an intr avenous (IV) line that will help you relax and remain comfortable. You may be awake or aslee p during the procedure. The healthcare provider will put the endoscope in your mouth and down your esophagus.I tis thinner than most pieces of food that you swallow. It will not affect your breathing. The medicine helps keep you from gagging. Air is put into your GI tract to expand it. It can make you burp. During the procedure, the healthcare provider can take biopsies (tissue samples), remove abnormalities, such as polyps, or treat abnormalities through a variety of devices placed t hrough the endoscope. You will not feel this. The endoscope carries images of your upper GI tract to a video screen. If you are awake, you may be able to look at the images. After the procedure is done, you will rest for a time. An adult must drive you home. When to call your healthcare provider Contact your healthcare provider if you have: Black or tarry stools, or blood in your stool Fever Pain in your belly that does not go away Nausea and vomiting, or vomiting blood Date Last Reviewed: 05/28/2016 [employer]. [address] [place] [address]. All righ ts reserved. This information is not intended as a substitute for professional medical care. Always follow your healthcare professional's instructions. Recovery After Procedural Sedation (Adult) You have been given medicine by vein to make you sleep during your procedure. This may have included both a pain medicine and sleeping medicine. Most of the effects have worn off. But you may still have some drowsiness for the next 6 to 8 hours. Home care Follow these guidelines when you get home: For the next 8 hours, you should be watched by a responsible adult. This person should m alayna sure your condition is not getting worse. Don't drink any alcoholfor the next [address], operate dangerous machinery,make important business or personal decisions , or sign legal documentsduring the next 24 hours. Note: Your healthcare provider may tell you not to take any medicine by mouth for pain or s leep in the next 4 hours. These medicines may react with the medicines you were given in the hospital. This could cause a much stronger response than usual. Follow-up care Follow up with your healthcare provider if you are not alert and back to your usual level o f activity within 12 hours. When to seek medical advice Call your healthcare provider right away if any of these occur: Drowsiness gets worse Weakness or dizziness gets worse Repeated vomiting You can't be awakened Date Last Reviewed: 09/14/2016 [employer]. [address] [place] [address]. All righ ts reserved. This information is not intended as a substitute for professional medical care. Always follow your healthcare professional's instructions. You were admitted with vomiting, concern for bleeding. The scope of your stomach showed so me irritation from vomiting, but there was no active bleeding. Please take pantoprazole twi ce daily for 7 days, then once daily for 3 months. documented in this encounter Medications at Time of Discharge + + + +---------+ + + | Medication | Sig | Dispensed | Refills | Start | End Date | | | | | | Date | | + + + +---------+ + + | acyclovir | take 1 tablet by | 25 | 2 | /16/20 | | | (ZOVIRAX) 400 MG | [...] | 0 | | | | (MYCOSTATIN) 802564 | topically 2 times | | | [...] + + documented as of this encounter Progress Notes Sugar Khanna MD - 12/03/2019 4:10 PM PST [place], [place] H[facility]PITAL[facility] PROGRESS NOTE Patient: Stiven Davila : 1985: Age: 34 y.o. MedRec: [id number] Admission date: 12/02/2019 Hospital day # : 1 Physician author: Sugar Khanna MD Today: 12/03/2019 Assessment and Hospital Course Active Hospital Problems Diagnosis Hematemesis with nausea S/P laparoscopic sleeve gastrectomy Learning disability Resolved Hospital Problems No resolved problems to display. 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 Plan #Aviva-Toro tear #Gastritis #Hematemesis Patient presented after hematemesis, found on EGD (Dr Espinoza) today to have small non-bleedi ng Aviva-Toro tear. Mild erosive gastritis noted, biopsied. Blood counts stable. Bleeding has not recurred here. - advance diet - twice a day PPI for 7d days then once daily for 3 months per GI - follow up with GI in 4 months #Nausea Patient reports nausea and dizziness post-procedure. Anti-emetics ordered. Will want to chasidy e sure patient is able to tolerate PO reliably prior to DC. FEN: advance as tolerated Ppx: SCD, ambulate Disposition: anticipate DC tomorrow Subjective CC: nausea, dizziness Patient was unable to tolerate lunch post-procedure, feels nauseated and dizzy. Denies othe r complaints; chest pain has resolved. ROS was performed and was negative except as noted above. Exam Gen: tired appearing, NAD HEENT: MMM CV: regular rate and rhythm no m/r/g Pulm: LCAB Abdominal: soft, nontender, nondistended, normal bowel tones Extremities: well perfused, no edema Skin: warm, dry, no rashes Neuro: alert, CN intact, no focal deficits Psych: flat affect Allergies: Allergies Allergen Reactions Cephalexin Shortness Of Breath and Vertigo Current Medications: Current Facility-Administered Medications Medication Dose Route Frequency Provider Last Rate Last Dose lidocaine (XYLOCAINE) 2% viscous solution 10 mL 10 mL Oral Once PRN Keren tovar MD And aluminum & magnesium hydroxide-simethicone (MAALOX PLUS REGULAR STRENGTH) 200-200-20 mg /5 mL suspension 30 mL 30 mL Oral Once PRN Keren Orellana MD HYDROmorphone (DILAUDID) injection 0.4-0.8 mg 0.4-0.8 mg Intravenous Q2H PRN Keren Orellana MD 0.8 mg at 12/02/19 2358 lidocaine (XYLOCAINE) 2% viscous solution 15 mL 15 mL Mouth/Throat Q3H PRN Keren Lizarraga MD melatonin tablet 3 mg 3 mg Oral Nightly PRN Keren Orellana MD 3 mg at 0 2358 metoclopramide (REGLAN) 5 mg/mL injection 10 mg 10 mg Intravenous Q6H PRN Keren French MD ondansetron (ZOFRAN) injection 4 mg 4 mg Intravenous Q6H PRN Keren Orellana MD 4 mg at 12/03/19 1443 pantoprazole (PROTONIX) DR tablet 40 mg 40 mg Oral BID AC Keren Orellana MD Current Infusions: Objective Data Point of care glucose No results for input(s): POCGLU in the last 168 hours. Labs last 24 hours Recent Results (from the past 24 hour(s)) Hemoglobin Collection Time: 12/02/19 7:53 PM Result Value Ref Range Hemoglobin 12.3 (L) 13.5 - 18.0 g/dL CBC with Differential Collection Time: 12/03/19 4:52 AM Result Value Ref Range WBC 5.7 4.0 - 11.0 K/uL RBC 3.80 (L) 4.30 - 5.70 M/uL Hemoglobin 11.2 (L) 13.5 - 18.0 g/dL Hematocrit 36.0 (L) 40.0 - 51.0 % MCV 94.7 83.0 - 101.0 fL MCH 29.5 28.0 - 35.0 pg MCHC 31.1 (L) 32.0 - 36.0 g/dL RDW-CV 13.2 <15.0 % RDW-SD 46.3 35.1 - 46.3 fL Platelet Count 167 140 - 440 K/uL MPV 9.5 6.5 - 12.4 fL % Neutrophils 50.8 45.0 - 82.0 % % Lymphocytes 37.4 20.0 - 45.0 % % Monocytes 6.3 4.0 - 12.0 % % Eosinophils 4.9 0.0 - 5.0 % % Basophils 0.4 0.0 - 1.0 % % Immature Granulocytes 0.2 0.0 - 0.4 % Absolute Neutrophils 2.88 1.80 - 8.50 K/uL Absolute Lymphocytes 2.12 0.60 - 3.20 K/uL Absolute Monocytes 0.36 0.00 - 1.00 K/uL Absolute Eosinophils 0.28 0.00 - 0.40 K/uL Absolute Basophils 0.02 0.00 - 0.10 K/uL Absolute Immature Granulocytes 0.01 0.00 - 0.03 K/uL % nRBC 0 0 - 2 per 100 WBCs Absolute nRBC 0.00 0.00 - 0.01 K/uL Basic Metabolic Panel Collection Time: 12/03/19 4:52 AM Result Value Ref Range Na 143 136 - 145 mmol/L K 4.2 3.4 - 5.1 mmol/L Cl 106 98 - 107 mmol/L CO2 32 (H) 20 - 31 mmol/L Anion Gap 5 3 - 16 mmol/L Glucose 106 60 - 106 mg/dL BUN 13 9 - 23 mg/dL Creatinine 0.74 0.70 - 1.30 mg/dL eGFR if not >60 >=60 mL/min/1.73m2 Calcium 9.5 8.7 - 10.4 mg/dL BUN/Creatinine Ratio 17.6 Micro results (more choices using dot micro) Microbiology Results (72 hrs) No results found for the last 72 hours. Radiology results (more choices using dot risresults) Ct Abdomen Pelvis W Contrast Result Date: 12/02/2019 EXAM: CT PULMONARY ANGIOGRAM 12/02/2019 11:04 AM HISTORY: PE suspected, low pretest prob C hest pain pleuritic leg pain COMPARISON: CT chest abdomen and pelvis 05/27/2018 TECHNIQUE: Axial images are performed through the chest following the uneventful intravenous administra tion of 125 mL Omnipaque-350 contrast, with timing of the contrast bolus optimized for opaci fication of the pulmonary arteries. Multiplanar reformations are also performed. This is fo llowed by imaging through the abdomen and pelvis. DOSE: DLP 323.21 mGy-cm FINDINGS: Scattere d artifact due to dose conservation technique utilized as the patient was having 2 sequentia l examinations. PULMONARY ANGIOGRAM: Pulmonary arteries: The average Hounsfield units in the main pulmonary artery are greater than 500. There is bolus heterogeneity and respiratory m otion degradation. No enlargement of the main pulmonary arteries. No definite filling defe cts to suggest pulmonary embolism. Heart and Mediastinum: No aneurysmal dilatation of the th oracic aorta. Dissection cannot be excluded given the timing of the contrast bolus. No card iac chamber enlargement. No pericardial thickening. No pneumomediastinum. There are calcif ied mediastinal lymph nodes. Lungs: No pleural effusion. No pneumothorax. No consolidation . The airways are patent. No significant noncalcified pulmonary nodules. Chest wall: No ax illary or visible supraclavicular lymphadenopathy. Bone: No suspicious lytic or blastic bone lesions. No acute osseous abnormalities. There is a healed sternal fracture. ABDOMEN AND PELVIS: LIVER: The liver is unremarkable. Fatty infiltration of the liver is difficult to e xclude. There are no focal liver lesions. Mild hepatomegaly. GALLBLADDER: The gallbladder is surgically absent. The intrahepatic and extrahepatic biliary ducts are appropriate given the postsurgical state. SPLEEN: The spleen is unremarkable. There is no splenomegaly. PANC REAS: The pancreas is unremarkable. The pancreatic duct is not dilated. ADRENALS: No adrena l enlargement. No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 Once PRN Joselito Wallace MD And aluminum & magnesium hydroxide-simethicone (MAALOX PLUS REGULAR STRENGTH) 200-200-20 mg /5 mL suspension 30 mL 30 mL Oral Once PRN Joselito Wallace MD HYDROmorphone (DILAUDID) injection 0.4-0.8 mg 0.4-0.8 mg Intravenous Q2H PRN Sugar lynn MD 0.8 mg at 12/02/19 2358 lactated ringers (LR) infusion Intravenous Continuous Sugar Khanna MD 100 mL/hr at 0 12/03/19 0412 lidocaine (XYLOCAINE) 2% viscous solution 15 mL 15 mL Mouth/Throat Q3H PRN Sugar stahl MD melatonin tablet 3 mg 3 mg Oral Nightly PRN Rudy Izaguirre MD 3 mg at 12/02/19 235 8 metoclopramide (REGLAN) 5 mg/mL injection 10 mg 10 mg Intravenous Q6H PRN Sugar Khanna MD ondansetron (ZOFRAN) injection 4 mg 4 mg Intravenous Q6H PRN Joselito Wallace MD pantoprazole (PROTONIX) injection 40 mg 40 mg Intravenous BID Sugar Khanna MD 40 mg at 12/02/19 1745 Current Infusions: lactated ringers 100 mL/hr at 12/03/19 0412 Objective Data Point of care glucose No results for input(s): POCGLU in the last 168 hours. Labs last 24 hours Recent Results (from the past 24 hour(s)) ECG 12 lead Collection Time: 12/02/19 11:39 AM Result Value Ref Range VENTRICULAR RATE EKG 68 BPM ATRIAL RATE 68 BPM P-R INTERVAL 138 ms QRS DURATION 88 ms Q-T INTERVAL 400 ms Q-T INTERVAL (CORRECTED) 425 ms P WAVE AXIS 5 degrees QRS AXIS 20 degrees T AXIS 29 degrees INTERPRETATION TEXT Normal sinus rhythm Minimal voltage criteria for LVH, may be normal variant When compared with ECG of 01-OCT-2017 18:50, Nonspecific T wave abnormality no longer evident in Lateral leads T wave amplitude has increased in Inferior leads Confirmed by NOREEN JACKSON MD ([id number]) on 12/03/2019 6:33:55 AM CBC with Differential Collection Time: 12/02/19 11:42 AM Result Value Ref Range WBC 6.8 4.0 - 11.0 K/uL RBC 4.14 (L) 4.30 - 5.70 M/uL Hemoglobin 12.3 (L) 13.5 - 18.0 g/dL Hematocrit 37.3 (L) 40.0 - 51.0 % MCV 90.1 83.0 - 101.0 fL MCH 29.7 28.0 - 35.0 pg MCHC 33.0 32.0 - 36.0 g/dL RDW-CV 13.0 <15.0 % RDW-SD 43.1 35.1 - 46.3 fL Platelet Count 200 140 - 440 K/uL MPV 9.6 6.5 - 12.4 fL % Neutrophils 64.6 45.0 - 82.0 % % Lymphocytes 24.6 20.0 - 45.0 % % Monocytes 5.8 4.0 - 12.0 % % Eosinophils 4.3 0.0 - 5.0 % % Basophils 0.6 0.0 - 1.0 % % Immature Granulocytes 0.1 0.0 - 0.4 % Absolute Neutrophils 4.38 1.80 - 8.50 K/uL Absolute Lymphocytes 1.67 0.60 - 3.20 K/uL Absolute Monocytes 0.39 0.00 - 1.00 K/uL Absolute Eosinophils 0.29 0.00 - 0.40 K/uL Absolute Basophils 0.04 0.00 - 0.10 K/uL Absolute Immature Granulocytes 0.01 0.00 - 0.03 K/uL % nRBC 0 0 - 2 per 100 WBCs Absolute nRBC 0.00 0.00 - 0.01 K/uL Comprehensive Metabolic Panel Collection Time: 12/02/19 11:42 AM Result Value Ref Range Na 143 136 - 145 mmol/L K 4.1 3.4 - 5.1 mmol/L Cl 106 98 - 107 mmol/L CO2 27 20 - 31 mmol/L Anion Gap 10 3 - 16 mmol/L Glucose 96 60 - 106 mg/dL BUN 13 9 - 23 mg/dL Creatinine 0.75 0.70 - 1.30 mg/dL eGFR if not >60 >=60 mL/min/1.73m2 Calcium 9.8 8.7 - 10.4 mg/dL Albumin 4.4 3.2 - 4.8 g/dL Bilirubin Total 0.6 0.3 - 1.2 mg/dL Total Protein 7.2 5.7 - 8.2 g/dL AST 19 0 - 34 U/L ALT 13 10 - 49 U/L Alkaline Phosphatase 40 (L) 46 - 116 U/L Globulin 2.8 2.1 - 3.8 g/dL Albumin/Globulin Ratio 1.6 0.8 - 1.9 BUN/Creatinine Ratio 17.3 Lipase Collection Time: 12/02/19 11:42 AM Result Value Ref Range Lipase 41 12 - 53 U/L Troponin I Collection Time: 12/02/19 11:42 AM Result Value Ref Range Troponin I <0.01 <0.06 ng/mL Ethanol Collection Time: 12/02/19 1:18 PM Result Value Ref Range ALCOHOL, SERUM/PLASMA <10 <10 mg/dL Hemoglobin Collection Time: 12/02/19 7:53 PM Result Value Ref Range Hemoglobin 12.3 (L) 13.5 - 18.0 g/dL CBC with Differential Collection Time: 12/03/19 4:52 AM Result Value Ref Range WBC 5.7 4.0 - 11.0 K/uL RBC 3.80 (L) 4.30 - 5.70 M/uL Hemoglobin 11.2 (L) 13.5 - 18.0 g/dL Hematocrit 36.0 (L) 40.0 - 51.0 % MCV 94.7 83.0 - 101.0 fL MCH 29.5 28.0 - 35.0 pg MCHC 31.1 (L) 32.0 - 36.0 g/dL RDW-CV 13.2 <15.0 % RDW-SD 46.3 35.1 - 46.3 fL Platelet Count 167 140 - 440 K/uL MPV 9.5 6.5 - 12.4 fL % Neutrophils 50.8 45.0 - 82.0 % % Lymphocytes 37.4 20.0 - 45.0 % % Monocytes 6.3 4.0 - 12.0 % % Eosinophils 4.9 0.0 - 5.0 % % Basophils 0.4 0.0 - 1.0 % % Immature Granulocytes 0.2 0.0 - 0.4 % Absolute Neutrophils 2.88 1.80 - 8.50 K/uL Absolute Lymphocytes 2.12 0.60 - 3.20 K/uL Absolute Monocytes 0.36 0.00 - 1.00 K/uL Absolute Eosinophils 0.28 0.00 - 0.40 K/uL Absolute Basophils 0.02 0.00 - 0.10 K/uL Absolute Immature Granulocytes 0.01 0.00 - 0.03 K/uL % nRBC 0 0 - 2 per 100 WBCs Absolute nRBC 0.00 0.00 - 0.01 K/uL Basic Metabolic Panel Collection Time: 12/03/19 4:52 AM Result Value Ref Range Na 143 136 - 145 mmol/L K 4.2 3.4 - 5.1 mmol/L Cl 106 98 - 107 mmol/L CO2 32 (H) 20 - 31 mmol/L Anion Gap 5 3 - 16 mmol/L Glucose 106 60 - 106 mg/dL BUN 13 9 - 23 mg/dL Creatinine 0.74 0.70 - 1.30 mg/dL eGFR if not >60 >=60 mL/min/1.73m2 Calcium 9.5 8.7 - 10.4 mg/dL BUN/Creatinine Ratio 17.6 Micro results (more choices using dot micro) Microbiology Results (72 hrs) No results found for the last 72 hours. Radiology results (more choices using dot risresults) Ct Abdomen Pelvis W Contrast Result Date: 12/02/2019 EXAM: CT PULMONARY ANGIOGRAM 12/02/2019 11:04 AM HISTORY: PE suspected, low pretest prob C hest pain pleuritic leg pain COMPARISON: CT chest abdomen and pelvis 05/27/2018 TECHNIQUE: Axial images are performed through the chest following the uneventful intravenous administra tion of 125 mL Omnipaque-350 contrast, with timing of the contrast bolus optimized for opaci fication of the pulmonary arteries. Multiplanar reformations are also performed. This is fo llowed by imaging through the abdomen and pelvis. DOSE: DLP 323.21 mGy-cm FINDINGS: Scattere d artifact due to dose conservation technique utilized as the patient was having 2 sequentia l examinations. PULMONARY ANGIOGRAM: Pulmonary arteries: The average Hounsfield units in the main pulmonary artery are greater than 500. There is bolus heterogeneity and respiratory m otion degradation. No enlargement of the main pulmonary arteries. No definite filling defe cts to suggest pulmonary embolism. Heart and Mediastinum: No aneurysmal dilatation of the th oracic aorta. Dissection cannot be excluded given the timing of the contrast bolus. No card iac chamber enlargement. No pericardial thickening. No pneumomediastinum. There are calcif ied mediastinal lymph nodes. Lungs: No pleural effusion. No pneumothorax. No consolidation . The airways are patent. No significant noncalcified pulmonary nodules. Chest wall: No ax illary or visible supraclavicular lymphadenopathy. Bone: No suspicious lytic or blastic bone lesions. No acute osseous abnormalities. There is a healed sternal fracture. ABDOMEN AND PELVIS: LIVER: The liver is unremarkable. Fatty infiltration of the liver is difficult to e xclude. There are no focal liver lesions. Mild hepatomegaly. GALLBLADDER: The gallbladder is surgically absent. The intrahepatic and extrahepatic biliary ducts are appropriate given the postsurgical state. SPLEEN: The spleen is unremarkable. There is no splenomegaly. PANC REAS: The pancreas is unremarkable. The pancreatic duct is not dilated. ADRENALS: No adrena l enlargement. No adrenal masses. KIDNEYS: The kidneys are symmetrically enhancing. There are no focal renal lesions. Nephrolithiasis is not excluded given the presence of contrast in the collecting systems. There is no obstructive uropathy. BOWEL: There are scattered div erticula. No evidence for diverticulitis. No appendicitis. Gastric reduction surgery area s No gastrointestinal tract obstruction. VASCULATURE AND LYMPH NODES: There is no aneurysma l dilatation of the abdominal aorta. There is no pelvic or abdominal lymphadenopathy. BLADD ER: The bladder is unremarkable. BONES: There are no acute osseous abnormalities. There are no suspicious lytic or blastic bone lesions. OTHER: There is no free fluid. There is no fr ee air. No evidence for pulmonary embolism. No CT evidence for acute disease in the chest. Gastric reduction changes. No evidence for gastrointestinal tract obstruction or perforation. Divert iculosis without active diverticulitis. Dictated and Signed by: Zeeshan Isbell MD Electro nically signed: 12/02/2019 1:24 PM Xr Chest Ap Portable Result Date: 12/02/2019 EXAM: XR CHEST AP PORTABLE dated 12/02/2019 11:53 AM HISTORY: EMESIS GI BLEEDING CHEST PAIN C omparison: 06/30/2019 TECHNIQUE: A single portable view of the chest. FINDINGS: The lungs are symmetrically aerated. They are clear. There are no large pleural effusions. There is no pneumothorax. The cardiac and mediastinal contours are not enlarged. No acute osseous abno rmalities. No radiographic evidence for acute disease in the chest. Dictated and Signed by: Zeeshan ward MD Electronically signed: 12/02/2019 1:[address] Angiogram Pulmonary W Contrast Result Date: 12/02/2019 EXAM: CT PULMONARY ANGIOGRAM 12/02/2019 11:04 AM HISTORY: PE suspected, low pretest prob C hest pain pleuritic leg pain COMPARISON: CT chest abdomen and pelvis 05/27/2018 TECHNIQUE: Axial images are performed through the chest following the uneventful intravenous administra tion of 125 mL Omnipaque-350 contrast, with timing of the contrast bolus optimized for opaci fication of the pulmonary arteries. Multiplanar reformations are also performed. This is fo llowed by imaging through the abdomen and pelvis. DOSE: DLP 323.21 mGy-cm FINDINGS: Scattere d artifact due to dose conservation technique utilized as the patient was having 2 sequentia l examinations. PULMONARY ANGIOGRAM: Pulmonary arteries: The average Hounsfield units in the main pulmonary artery are greater than 500. There is bolus heterogeneity and respiratory m otion degradation. No enlargement of the main pulmonary arteries. No definite filling defe cts to suggest pulmonary embolism. Heart and Mediastinum: No aneurysmal dilatation of the th oracic aorta. Dissection cannot be excluded given the timing of the contrast bolus. No card iac chamber enlargement. No pericardial thickening. No pneumomediastinum. There are calcif ied mediastinal lymph nodes. Lungs: No pleural effusion. No pneumothorax. No consolidation . The airways are patent. No significant noncalcified pulmonary nodules. Chest wall: No ax illary or visible supraclavicular lymphadenopathy. Bone: No suspicious lytic or blastic bone lesions. No acute osseous abnormalities. There is a healed sternal fracture. ABDOMEN AND PELVIS: LIVER: The liver is unremarkable. Fatty infiltration of the liver is difficult to e xclude. There are no focal liver lesions. Mild hepatomegaly. GALLBLADDER: The gallbladder is surgically absent. The intrahepatic and extrahepatic biliary ducts are appropriate given the postsurgical state. SPLEEN: The spleen is unremarkable. There is no splenomegaly. PANC REAS: The pancreas is unremarkable. The pancreatic duct is not dilated. ADRENALS: No adrena l enlargement. No adrenal masses. KIDNEYS: The kidneys are symmetrically enhancing. There are no focal renal lesions. Nephrolithiasis is not excluded given the presence of contrast in the collecting systems. There is no obstructive uropathy. BOWEL: There are scattered div erticula. No evidence for diverticulitis. No appendicitis. Gastric reduction surgery area s No gastrointestinal tract obstruction. VASCULATURE AND LYMPH NODES: There is no aneurysma l dilatation of the abdominal aorta. There is no pelvic or abdominal lymphadenopathy. BLADD ER: The bladder is unremarkable. BONES: There are no acute osseous abnormalities. There are no suspicious lytic or blastic bone lesions. OTHER: There is no free fluid. There is no fr ee air. No evidence for pulmonary embolism. No CT evidence for acute disease in the chest. Gastric reduction changes. No evidence for gastrointestinal tract obstruction or perforation. Divert iculosis without active diverticulitis. Dictated and Signed by: Zeeshan Isbell MD Electro nically signed: 12/02/2019 1:24 PM Vitals Ranges: Temp: [36.2 C (97.2 F)-36.8 C (98.2 F)] 36.2 C (97.2 F) Pulse: [55-73] 60 Resp: [0-23] 18 BP: (115-144)/(67-96) 137/67 Vitals: Temp: 36.2 C (97.2 F) BP: 137/67 Pulse: 60 Resp: 18 SpO2: 99 % SpO2 99 % on room air at flow rate L/min Roderick Rios, Medical Student 12/03/2019 7:[address] [facility] [place] - Chanell Luther RN - 12/03/2019 6:15 AM PSTKC complains of pain, states none of the medications he h as received have helped relieve any pain. He also complained of not being able to sleep. notified and melatonin ordered and given. He states he did not rest well. No nausea or vomit ing. NPO with LR running. Safety rounds completed and call light within reach. Problem: Nausea and Vomiting Goal: Fluid and Electrolyte Balance Outcome: Ongoing, progressing Problem: Pain Acute Goal: Optimal Pain Control Outcome: Ongoing, not progressing lan of Care - Derek Cardona RN - 12/02/2019 6:09 PM PSTMr Davila is being admitted to [facility]. He is without distr ess on arrival. He does state that he has some chest pain & R axillary pain the same as in E R. IVF were started & PRN pain meds given. Electronically signed by Derek Cardona RN at 03/2020 6:11 PM PSTdocumented in this encounter Plan of [...] AGARWAL | | | | | | [phone] | | | | | | | | +--------+---------+ + + + documented as of this encounter Procedures + +--------+ + + + | Procedure Name | Priori | Date/Time | Associated Diagnosis | Comments | | | ty | | | | + +--------+ + + + | EGD | | 12/03/2019 | Hematemesis | | | | | 11:36 AM | | | | | | PST | | | + +--------+ + + + | *TERMED* MD UPPER GI | Routin | 12/03/2019 | | Results for this | | ENDOSCOPY,EXAM | e | 11:13 AM | | procedure are in the | | | | PST | | results section. | + +--------+ + + + | CBC WITH | Routin | 12/03/2019 | | Results for this | | DIFFERENTIAL | e | 4:52 AM | | procedure are in the | | | | PST | | results section. | + +--------+ + + + | BASIC METABOLIC | Routin | 12/03/2019 | | Results for this | | PANEL | e | 4:52 AM | | procedure are in the | | | | PST | | results section. | + +--------+ + + + | SURGICAL PATHOLOGY | Routin | 12/03/2019 | | Results for this | | EXAM | e | 12:00 AM | | procedure are in the | | | | PST | | results section. | + +--------+ + + + | HEMOGLOBIN | Routin | 12/02/2019 | | Results for this | | | e | 7:53 PM | | procedure are in the | | | | PST | | results section. | + +--------+ + + + | ALCOHOL | STAT | 12/02/2019 | | Results for this | | | | 1:18 PM | | procedure are in the | | | | PST | | results section. | + +--------+ + + + | CT ANGIOGRAM | STAT | 12/02/2019 | | Results for this | | PULMONARY | | 12:47 PM | | procedure are in the | | | | PST | | results section. | + +--------+ + + + | CT ABDOMEN PELVIS W | STAT | 12/02/2019 | | Results for this | | CONTRAST | | 12:47 PM | | procedure are in the | | | | PST | | results section. | + +--------+ + + + | XR CHEST AP PORTABLE | STAT | 12/02/2019 | | Results for this | | | | 11:53 AM | | procedure are in the | | | | PST | | results section. | + +--------+ + + + | TROPONIN I | STAT | 12/02/2019 | | Results for this | | | | 11:42 AM | | procedure are in the | | | | PST | | results section. | + +--------+ + + + | CBC WITH | STAT | 12/02/2019 | | Results for this | | DIFFERENTIAL | | 11:42 AM | | procedure are in the | | | | PST | | results section. | + +--------+ + + + | LIPASE | STAT | 12/02/2019 | | Results for this | | | | 11:42 AM | | procedure are in the | | | | PST | | results section. | + +--------+ + + + | COMPREHENSIVE | STAT | 12/02/2019 | | Results for this | | METABOLIC PANEL | | 11:42 AM | | procedure are in the | | | | PST | | results section. | + +--------+ + + + | ECG 12 LEAD | STAT | 12/02/2019 | | Results for this | | | | 11:39 AM | | procedure are in the | | | | PST | | results section. | + +--------+ + + + documented in this encounter Results EGD (12/03/2019 11:13 AM PST) + + | Specimen | + + | | + + + +--------- -----+ | Narrative | Daniele d At | + +--------- -----+ | [facility] [place] [facility] | | [facility] CenterologyPatient Name: Stiven Davila | AMBIKA Cabrera | | michaelProcedure Date: 12/03/2019 11:13 AMN: [id number] | | | Number: [id number] of : 1985Note Status: | | | FinalizedAttending MD: LEWIS ONEILLrocedure Type: | | | Upper GI endoscopy WITH COLD FORCEPS BIOPSYIndications: | | | HematemesisReferring MD: Chance Villanueva | | | MD Octavia (Referring MD)Medicines: Propofol | | | per AnesthesiaComplications: No immediate | | | complications.Procedure: Pre-Anesthesia Assessment: - | | | Prior to the procedure, a History and Physical was performed, and | | | patient medications and allergies were reviewed. The patient's | | | tolerance of previous anesthesia was also reviewed. The risks | | | and benefits of the procedure and the sedation options and | | | risks were discussed with the patient. All questions were | | | answered, and informed consent was obtained. Prior | | | Anticoagulants: The patient has taken no previous anticoagulant or | | | antiplatelet agents. ASA Grade Assessment: II - A patient with | | | mild systemic disease. After reviewing the risks and benefits, | | | the patient was deemed in satisfactory condition to undergo the | | | procedure. After obtaining informed consent, the endoscope was | | | passed under direct vision. Throughout the procedure, the | | | patient's blood pressure, pulse, and oxygen saturations were | | | monitored continuously. The Endoscope was introduced through | | | the mouth, and advanced to the second part of duodenum. The | | | upper GI endoscopy was accomplished without difficulty. The | | | patient tolerated the procedure well.Estimated Blood Loss: | | | Estimated blood loss was minimal.Moderate Sedation: PER | | | ANESTHESIAFindings: The examined esophagus was normal. A | | | small non-bleeding Aviva-Toro tear with no stigmata of recent | | | bleeding was found. Localized mild inflammation characterized | | | by congestion (edema), erosions and erythema was found on the | | | greater curvature of the stomach and in the gastric antrum. | | | Biopsies were taken with a cold forceps for Helicobacter pylori | | | testing. The examined duodenum was normal.Impression: - | | | HEMATEMESIS DUE TO Aviva-Toro tear, LOW RISK TO REBLEED. - | | | MILD EROSIVE Gastritis. Biopsied.Recommendation: - Return | | | [facility]. - Soft diet. - | | | Continue present medications. BID PPI FOR 7 DAYS THEN ONCE DAILY FOR 3 | | | MOS - Await pathology results. - Return to GI | | | office in 4 months.KEREN ORELLANA MD12/03/2019 12:03:03 PMThis | | | report has been signed electronically.Note Initiated On: 12/03/2019 | | | 11:13 AMNumber of Addenda: 0 [facility] | | |Impression: | | | - HEMATEMESIS DUE TO Aviva-Toro tear, LOW RISK TO REBLEED. | | | - MILD EROSIVE Gastritis. Biopsied. | | |Recommendation: | | | - [facility]. | | | - Soft diet. | | | - Continue present medications. BID PPI FOR 7 DAYS THEN ONCE DAILY FOR 3 | | | MOS | | | - Await pathology results. | | | - Return to GI office in 4 months. | | |KEREN ORELLANA MD | | |12/03/2019 12:03:03 PM | | |This report has been signed electronically. | | |Note Initiated On: 12/03/2019 11:13 AM | | |Number of Addenda: 0 | | | [facility] | | + +--------- -----+ + +---------+ + + | Performing | Address | City/State/Zipcode | Phone Number | | Organization | | | | + +---------+ + + | [facility] | | | | + +---------+ + + Basic Metabolic Panel (12/03/2019 4:52 AM PST) + + + + + + | Component | Value | Ref Range | Performed | Pathologist | | | | | At | Signature | + + + + + + | Na | 143 | 136 - 145 | [facility] | | | | | mmol/L | [facility] | | | | | | [facility] | | | | | | [facility] - | | | | | | LABORATORY | | + + + + + + | K | 4.2 | 3.4 - 5.1 | [facility] | [...] + + + + | CO2 | 32 (H) | 20 - 31 mmol/L | [facility] | | | | | | [facility] | | | | | | [facility] | | | | | | [facility] - | | | | | | LABORATORY | | + + + + + + | Anion Gap | 5 | 3 - 16 mmol/L | [facility] | | | | | | [facility] | | | | | | [facility] | | | | | | [facility] - | | | | | | LABORATORY | | + + + + + + | Glucose | 106 | 60 - 106 mg/dL | [facility] | | | | | | [facility] | | | | | | [facility] | | | | | | [facility] - | | | | | | LABORATORY | | + + + + + + | BUN | 13 | 9 - 23 mg/dL | [facility] | | | | | | [facility] | | | | | | [facility] | | | | | | [facility] - | | | | | | LABORATORY | | + + + + + + | Creatinine | 0.74 | 0.70 - 1.30 | [facility] | | | | | mg/dL | [facility] | | | | | | [facility] | | | | | | [facility] - | | | | | | LABORATORY | | + + + + + + | eGFR, | >60Comment: GLOMERULAR | >=60 | [facility] | | | non- | FILTRATION | mL/min/1.73m2 | [facility] | | | [place] | RATE,ESTIMATED | | MEDICAL | | | | mL/min/1.11i9Tkyk than | | CENTER - | | [...] + + + + | Calcium | 9.5 | 8.7 - 10.4 | [facility] | | | | | mg/dL | [facility] | | | | | | MEDICAL | | | | | | CENTER - | | | | | | LABORATORY | | + + + + + + | BUN/Creatin | 17.6 | | [facility] | | | ine Ratio | | | [facility] | | [...] [address] | MARTINE Agarwal | [phone] | | [facility] | | [id number] | | | - LABORATORY | | | | + + + + + CBC with Differential (12/03/2019 4:52 AM PST) + + + + + + | Component | Value | Ref Range | Performed | Pathologist | | | | | At | Signature | + + + + + + | White Blood | 5.7 | 4.0 - 11.0 K/uL | [facility] | | | Cells | | | [facility] | | | | | | MEDICAL | | | | | | CENTER - | | | | | | LABORATORY | | + + + + + + | Red Blood | 3.80 (L) | 4.30 - 5.70 | [facility] | | | Cells | | M/uL | [facility] | | | | | | MEDICAL | | | | | | CENTER - | | | | | | LABORATORY | | + + + + + + | Hemoglobin | 11.2 (L) | 13.5 - 18.0 | [facility] | | | | | g/dL | [facility] | | | | | | MEDICAL | | | | | | C[facility] - | | | | | | LABORATORY | | + + + + + + | Hematocrit | 36.0 (L) | 40.0 - 51.0 % | [facility] | | | | | | [facility] | | | | | | [facility] | | | | | | CENTER - | | | | | | LABORATORY | | + + + + + + | MCV | 94.7 | 83.0 - 101.0 fL | [facility] | | | | | | [facility] | | | | | | [facility]ICAL | | | | | | C[facility] - | | | | | | LABORATORY | | + + + + + + | MCH | 29.5 | 28.0 - 35.0 pg | [facility] | | | | | | [facility] | | | | | | [facility] | | | | | | [facility] - | | | | | | LABORATORY | | + + + + + + | MCHC | 31.1 (L) | 32.0 - 36.0 | [facility] | | | | | g/dL | [facility] | | | | | | [facility] | | | | | | CENTER - | | | | | | LABORATORY | | + + + + + + | RDW-CV | 13.2 | <15.0 % | [facility] | | | | | | [facility] | | | | | | [facility] | | | | | | C[facility] - | | | | | | LABORATORY | | + + + + + + | RDW-SD | 46.3 | 35.1 - 46.3 fL | [facility] | | | | | | [facility] | | | | | | [facility] | | | | | | [facility] - | | | | | | LABORATORY | | + + + + + + | Platelet | 167 | 140 - 440 K/uL | [facility] | | | Count | | | [facility] | | | | | | [facility] | | | | | | CENTER - | | | | | | LABORATORY | | + + + + + + | MPV | 9.5 | 6.5 - 12.4 fL | [facility] | | | | | | [facility] | | | | | | [facility] | | | | | | [facility] - | | | | | | LABORATORY | | + + + + + + | % | 50.8 | 45.0 - 82.0 % | [facility] | | | Neutrophils | | | [facility] | | | | | | [facility]ICAL | | | | | | CENTER - | | | | | | LABORATORY | | + + + + + + | % | 37.4 | 20.0 - 45.0 % | [facility] | | | Lymphocytes | | | [facility] | | | | | | MEDICAL | | | | | | CENTER - | | | | | | LABORATORY | | + + + + + + | % Monocytes | 6.3 | 4.0 - 12.0 % | [facility] | | | | | | [facility] | | | | | | [facility] | | | | | | C[facility] - | | | | | | LABORATORY | | + + + + + + | % | 4.9 | 0.0 - 5.0 % | [facility] | | | Eosinophils | | | [facility] | [facility] | | | | | | [facility] - | | | | | | LABORATORY | | + + + + + + | % Basophils | 0.4 | 0.0 - 1.0 % | [facility] [...] + + + + | Absolute | 2.88 | 1.80 - 8.50 | [facility] | | | Neutrophils | | K/uL | [facility] | | | | | [facility] | | | | | | [facility] - | | | | | | LABORATORY | | + + + + + + | Absolute | 2.12 | 0.60 - 3.20 | [facility] | | | Lymphocytes | | K/uL | [facility] | | | | | | [facility] | | | | | | [facility] - | | | | | | LABORATORY | | + + + + + + | Absolute | 0.36 | 0.00 - 1.00 | [facility] | | | Monocytes | | K/uL | [facility] | | | | | | [facility] | | | | | | [facility] - | | | | | | LABORATORY | | + + + + + + | Absolute | 0.28 | 0.00 - 0.40 | [facility] | | | Eosinophils | | K/uL | [facility] | | | | | | [facility] | | | | | | [facility] - | | | | | | LABORATORY | | + + + + + + | Absolute | 0.02 | 0.00 - 0.10 | [facility] | [...] | | | | WBCs | [facility] | | | | [...] [address] | [place] | [phone] | | [facility] | | [address] | | | - LABORATORY | | | | + + + + + Surgical Pathology Exam (12/03/2019 12:00 AM PST) + + | Specimen | + + | | + + + + + | Narrative | Performed At | + + + | SPECIMEN(S): A GASTRIC SPECIMEN SOURCE: A. GASTRIC CLINICAL | [facility] | | HISTORY: Hematemesis. MICROSCOPIC DESCRIPTION: Histologic | [facility] | | sections of all submitted blocks are examined by light microscopy. | | | These findings, together with the gross examination, support the | | | pathologic diagnosis. FINAL PATHOLOGIC DIAGNOSIS: Stomach, | | | biopsy: - Antral mucosa with mild chronic, and active gastritis. - | | | Polypoid hypertrophic foveolar-type mucosa with chronic, inactive | | | gastritis, see Comment. - Oxyntic mucosa with no histopathologic | | | abnormality. - Negative for Helicobacter organisms on HE stain. - | | | Negative for dysplasia or malignancy. COMMENT: The fragment of | | | polypoid gastric mucosa could represent a hyperplastic polyp. | | | Correlation with endoscopic findings is recommended. NAL:[facility]:C2NR | | | GROSS DESCRIPTION: The specimen, labeled "KL, gastric biopsy," is | | | received in formalin and consists of five, 0.2-0.4 cm felder tissue | | | fragments. The specimen is entirely submitted in cassette (A1). AM | | | (under the direct supervision of a pathologist) The Gross | | | Description was prepared using a voice recognition system. The | | | report was reviewed for accuracy; however, sound-alike word errors, | | | addition and/or deletions may occur. If there is any question about | | | this report, please contact Client Services. PERFORMING | | | LABORATORY: The technical component was performed by [facility] | | | [facility] [address] ([employer]ometers Calibrator: | | | Florinda Mueller MD; CLIA# [id number]). Professional interpretation was | | | performed by [facility] | | | [place] [address] (Barometers Calibrator: [place] | | | Max Kang MD; CLIA# [id number]). Diagnostician: Kaelyn Martinez MD | | | Pathologist Electronically Signed 12/04/2019 | | + + + + +---------+ + + | Performing | Address | City/State/Zipcode | Phone Number | | Organization | | | | + +---------+ + + | [facility] | | | | | [facility] | | | | + +---------+ + + Hemoglobin (12/02/2019 7:53 PM PST) + + + + + + | Component | Value | Ref Range | Performed | Pathologist | | | | | At | Signature | + + + + + + | Hemoglobin | 12.3 (L) | 13.5 - 18.0 | [facility] [...] + | [facility] | [address] | [place] | [phone] | | [facility] | | [address] | | | - LABORATORY | | | | + + + + + Ethanol (12/02/2019 1:18 PM PST) + +-------+ + + + | Component | Value | Ref Range | Performed | Pathologist | | | | | At | Signature | + +-------+ + + + | ALCOHOL, | <10 | <10 mg/dL | [facility] | | | SERUM/PLASM | | | [facility] | | | A | | [...] ST. | [address] | [place], [place] | [phone] | | [facility] | | [address] | | | - LABORATORY | | | | + + + + + CT Abdomen Pelvis w Contrast (12/02/2019 12:47 PM PST) + + | Specimen | + + | | + + + + + | Impressions | Performed At | + + + | No evidence for pulmonary embolism. No CT evidence for acute | [facility] | | disease in the chest. Gastric reduction changes. No evidence | | | for gastrointestinal tract obstruction or perforation. | | | Diverticulosis without active diverticulitis. Dictated and Signed | | | by: Zeeshan Isbell MD Electronically signed: 12/02/2019 1:24 PM | | + + + + + + | Narrative | Performed At | + + + | EXAM: CT PULMONARY ANGIOGRAM 12/02/2019 11:04 AM HISTORY: PE | [facility] | | suspected, low pretest prob Chest pain pleuritic leg pain | | | COMPARISON: CT chest abdomen and pelvis 05/27/2018 TECHNIQUE: Axial | | | images are performed through the chest following the uneventful | | | intravenous administration of 125 mL Omnipaque-350 contrast, with | | | timing of the contrast bolus optimized for opacification of the | | | pulmonary arteries. Multiplanar reformations are also performed. | | | This is followed by imaging through the abdomen and pelvis. | | | DOSE: DLP 323.21 mGy-cm FINDINGS: Scattered artifact due to dose | | | conservation technique utilized as the patient was having 2 | | | sequential examinations. PULMONARY ANGIOGRAM: Pulmonary | | | arteries: The average Hounsfield units in the main pulmonary artery | | | are greater than 500. There is bolus heterogeneity and respiratory | | | motion degradation. No enlargement of the main pulmonary arteries. | | | No definite filling defects to suggest pulmonary embolism. | | | Heart and Mediastinum: No aneurysmal dilatation of the thoracic aorta. | | | Dissection cannot be excluded given the timing of the contrast | | | bolus. No cardiac chamber enlargement. No pericardial thickening. | | | No pneumomediastinum. There are calcified mediastinal lymph | | | nodes. Lungs: No pleural effusion. No pneumothorax. No | | | consolidation. The airways are patent. No significant | | | noncalcified pulmonary nodules. Chest wall: No axillary or visible | | | supraclavicular lymphadenopathy. Bone: No suspicious lytic or | | | blastic bone lesions. No acute osseous abnormalities. There is a | | | healed sternal fracture. ABDOMEN AND PELVIS: LIVER: The liver | | | is unremarkable. Fatty infiltration of the liver is difficult to | | | exclude. There are no focal liver lesions. Mild hepatomegaly. | | | GALLBLADDER: The gallbladder is surgically absent. The intrahepatic | | | and extrahepatic biliary ducts are appropriate given the postsurgical | | | state. SPLEEN: The spleen is unremarkable. There is no | | | splenomegaly. PANCREAS: The pancreas is unremarkable. The | | | pancreatic duct is not dilated. ADRENALS: No adrenal enlargement. | | | No adrenal masses. KIDNEYS: The kidneys are symmetrically | | | enhancing. There are no focal renal lesions. Nephrolithiasis is | | | not excluded given the presence of contrast in the collecting | | | systems. There is no obstructive uropathy. BOWEL: There are | | | scattered diverticula. No evidence for diverticulitis. No | | | appendicitis. Gastric reduction surgery areas No gastrointestinal | | | tract obstruction. VASCULATURE AND LYMPH NODES: There is no | | | aneurysmal dilatation of the abdominal aorta. There is no pelvic or | | | abdominal lymphadenopathy. BLADDER: The bladder is unremarkable. | | | BONES: There are no acute osseous abnormalities. There are no | | | suspicious lytic or blastic bone lesions. OTHER: There is no free | | | fluid. There is no free air. | | + + + + + | Procedure Note | + + | Rudolph, Rad Results In - 12/02/2019 1:27 PM PST EXAM: CT PULMONARY ANGIOGRAM 12/02/2019 | | 11:04 AM HISTORY: PE suspected, low pretest probChest pain pleuritic leg pain | | COMPARISON: CT chest abdomen and pelvis 05/27/2018 TECHNIQUE: Axial images are performed | | through the chest following the uneventfulintravenous administration of 125 mL | | Omnipaque-350 contrast, with timing of thecontrast bolus optimized for opacification of | | the pulmonary arteries.Multiplanar reformations are also performed. This is followed by | | imagingthrough the abdomen and pelvis.DOSE: DLP 323.21 mGy-cmFINDINGS: Scattered | | artifact due to dose conservation technique utilized as thepatient was having 2 | | sequential examinations.PULMONARY ANGIOGRAM:Pulmonary arteries: The average Hounsfield | | units in the main pulmonary arteryare greater than 500. There is bolus heterogeneity | | and respiratory motiondegradation. No enlargement of the main pulmonary arteries. No | | definitefilling defects to suggest pulmonary embolism.Heart and Mediastinum: No | | aneurysmal dilatation of the thoracic aorta. Dissection cannot be excluded given the | | timing of the contrast bolus. Nocardiac chamber enlargement. No pericardial | | thickening. No pneumomediastinum. There are calcified mediastinal lymph nodes.Lungs: No | | pleural effusion. No pneumothorax. No consolidation. The airwaysare patent. No | | significant noncalcified pulmonary nodules.Chest wall: No axillary or visible | | supraclavicular lymphadenopathy.Bone: No suspicious lytic or blastic bone lesions. No | | acute osseousabnormalities. There is a healed sternal fracture.ABDOMEN AND | | PELVIS:LIVER: The liver is unremarkable. Fatty infiltration of the liver is difficultto | | exclude. There are no focal liver lesions. Mild hepatomegaly.GALLBLADDER: The | | gallbladder is surgically absent. The intrahepatic andextrahepatic biliary ducts are | | appropriate given the postsurgical state.SPLEEN: The spleen is unremarkable. There is | | no splenomegaly.PANCREAS: The pancreas is unremarkable. The pancreatic duct is not | | dilated.ADRENALS: No adrenal enlargement. No adrenal masses.KIDNEYS: The kidneys are | | symmetrically enhancing. There are no focal renallesions. Nephrolithiasis is not | | excluded given the presence of contrast in thecollecting systems. There is no | | obstructive uropathy.BOWEL: There are scattered diverticula. No evidence for | | diverticulitis. Noappendicitis. Gastric reduction surgery areas No gastrointestinal | | tractobstruction.VASCULATURE AND LYMPH NODES: There is no aneurysmal dilatation of the | | abdominalaorta. There is no pelvic or abdominal lymphadenopathy.BLADDER: The bladder is | | unremarkable.BONES: There are no acute osseous abnormalities. There are no suspicious | | lyticor blastic bone lesions.OTHER: There is no free fluid. There is no free air. | | IMPRESSION: No evidence for pulmonary embolism.No CT evidence for acute disease in the | | chest.Gastric reduction changes.No evidence for gastrointestinal tract obstruction or | | perforation.Diverticulosis without active diverticulitis.Dictated and Signed by: Zeeshan Hamilton | | MD [place] Electronically signed: 12/02/2019 1:24 PM | | | |ABDOMEN AND PELVIS: | | | |LIVER: The liver is unremarkable. Fatty infiltration of the liver is difficult | |to exclude. There are no focal liver lesions. Mild hepatomegaly. | | | |GALLBLADDER: The gallbladder is surgically absent. The intrahepatic and | |extrahepatic biliary ducts are appropriate given the postsurgical state. | | | |SPLEEN: The spleen is unremarkable. There is no splenomegaly. | | | |PANCREAS: The pancreas is unremarkable. The pancreatic duct is not dilated. | | | |ADRENALS: No adrenal enlargement. No adrenal masses. | | | |KIDNEYS: The kidneys are symmetrically enhancing. There are no focal renal | |lesions. Nephrolithiasis is not excluded given the presence of contrast in the | |collecting systems. There is no obstructive uropathy. | | | |BOWEL: There are scattered diverticula. No evidence for diverticulitis. No | |appendicitis. Gastric reduction surgery areas No gastrointestinal tract | |obstruction. | | | |VASCULATURE AND LYMPH NODES: There is no aneurysmal dilatation of the abdominal | |aorta. There is no pelvic or abdominal lymphadenopathy. | | | |BLADDER: The bladder is unremarkable. | | | |BONES: There are no acute osseous abnormalities. There are no suspicious lytic | |or blastic bone lesions. | | | |OTHER: There is no free fluid. There is no free air. | | | | | |IMPRESSION: | | | |No evidence for pulmonary embolism. | | | |No CT evidence for acute disease in the chest. | | | |Gastric reduction changes. | | | |No evidence for gastrointestinal tract obstruction or perforation. | | | |Diverticulosis without active diverticulitis. | | | |Dictated and Signed by: Zeeshan T Buratto, MD | | Electronically signed: 12/02/2019 1:24 PM | + + + +---------+ + + | Performing | Address | City/State/Zipcode | Phone Number | | Organization | | | | + +---------+ + + | [facility] | | | | + +---------+ + + CT Angiogram Pulmonary w Contrast (12/02/2019 12:47 PM PST) + + | Specimen | + + | | + + + + + | Impressions | Performed At | + + + | No evidence for pulmonary embolism. No CT evidence for acute | [facility] | | disease in the chest. Gastric reduction changes. No evidence | | | for gastrointestinal tract obstruction or perforation. | | | Diverticulosis without active diverticulitis. Dictated and Signed | | | by: Zeeshan Isbell MD Electronically signed: 12/02/2019 1:24 PM | | + + + + + + | Narrative | Performed At | + + + | EXAM: CT PULMONARY ANGIOGRAM 12/02/2019 11:04 AM HISTORY: PE | [facility] | | suspected, low pretest prob Chest pain pleuritic leg pain | | | COMPARISON: CT chest abdomen and pelvis 05/27/2018 TECHNIQUE: Axial | | | images are performed through the chest following the uneventful | | | intravenous administration of 125 mL Omnipaque-350 contrast, with | | | timing of the contrast bolus optimized for opacification of the | | | pulmonary arteries. Multiplanar reformations are also performed. | | | This is followed by imaging through the abdomen and pelvis. | | | DOSE: DLP 323.21 mGy-cm FINDINGS: Scattered artifact due to dose | | | conservation technique utilized as the patient was having 2 | | | sequential examinations. PULMONARY ANGIOGRAM: Pulmonary | | | arteries: The average Hounsfield units in the main pulmonary artery | | | are greater than 500. There is bolus heterogeneity and respiratory | | | motion degradation. No enlargement of the main pulmonary arteries. | | | No definite filling defects to suggest pulmonary embolism. | | | Heart and Mediastinum: No aneurysmal dilatation of the thoracic aorta. | | | Dissection cannot be excluded given the timing of the contrast | | | bolus. No cardiac chamber enlargement. No pericardial thickening. | | | No pneumomediastinum. There are calcified mediastinal lymph | | | nodes. Lungs: No pleural effusion. No pneumothorax. No | | | consolidation. The airways are patent. No significant | | | noncalcified pulmonary nodules. Chest wall: No axillary or visible | | | supraclavicular lymphadenopathy. Bone: No suspicious lytic or | | | blastic bone lesions. No acute osseous abnormalities. There is a | | | healed sternal fracture. ABDOMEN AND PELVIS: LIVER: The liver | | | is unremarkable. Fatty infiltration of the liver is difficult to | | | exclude. There are no focal liver lesions. Mild hepatomegaly. | | | GALLBLADDER: The gallbladder is surgically absent. The intrahepatic | | | and extrahepatic biliary ducts are appropriate given the postsurgical | | | state. SPLEEN: The spleen is unremarkable. There is no | | | splenomegaly. PANCREAS: The pancreas is unremarkable. The | | | pancreatic duct is not dilated. ADRENALS: No adrenal enlargement. | | | No adrenal masses. KIDNEYS: The kidneys are symmetrically | | | enhancing. There are no focal renal lesions. Nephrolithiasis is | | | not excluded given the presence of contrast in the collecting | | | systems. There is no obstructive uropathy. BOWEL: There are | | | scattered diverticula. No evidence for diverticulitis. No | | | appendicitis. Gastric reduction surgery areas No gastrointestinal | | | tract obstruction. VASCULATURE AND LYMPH NODES: There is no | | | aneurysmal dilatation of the abdominal aorta. There is no pelvic or | | | abdominal lymphadenopathy. BLADDER: The bladder is unremarkable. | | | BONES: There are no acute osseous abnormalities. There are no | | | suspicious lytic or blastic bone lesions. OTHER: There is no free | | | fluid. There is no free air. | | + + + + + | Procedure Note | + + | Rudolph, Rad Results In - 12/02/2019 1:27 PM PST EXAM: CT PULMONARY ANGIOGRAM 12/02/2019 | | 11:04 AM HISTORY: PE suspected, low pretest probChest pain pleuritic leg pain | | COMPARISON: CT chest abdomen and pelvis 05/27/2018 TECHNIQUE: Axial images are performed | | through the chest following the uneventfulintravenous administration of 125 mL | | Omnipaque-350 contrast, with timing of thecontrast bolus optimized for opacification of | | the pulmonary arteries.Multiplanar reformations are also performed. This is followed by | | imagingthrough the abdomen and pelvis.DOSE: DLP 323.21 mGy-cmFINDINGS: Scattered | | artifact due to dose conservation technique utilized as thepatient was having 2 | | sequential examinations.PULMONARY ANGIOGRAM:Pulmonary arteries: The average Hounsfield | | units in the main pulmonary arteryare greater than 500. There is bolus heterogeneity | | and respiratory motiondegradation. No enlargement of the main pulmonary arteries. No | | definitefilling defects to suggest pulmonary embolism.Heart and Mediastinum: No | | aneurysmal dilatation of the thoracic aorta. Dissection cannot be excluded given the | | timing of the contrast bolus. Nocardiac chamber enlargement. No pericardial | | thickening. No pneumomediastinum. There are calcified mediastinal lymph nodes.Lungs: No | | pleural effusion. No pneumothorax. No consolidation. The airwaysare patent. No | | significant noncalcified pulmonary nodules.Chest wall: No axillary or visible | | supraclavicular lymphadenopathy.Bone: No suspicious lytic or blastic bone lesions. No | | acute osseousabnormalities. There is a healed sternal fracture.ABDOMEN AND | | PELVIS:LIVER: The liver is unremarkable. Fatty infiltration of the liver is difficultto | | exclude. There are no focal liver lesions. Mild hepatomegaly.GALLBLADDER: The | | gallbladder is surgically absent. The intrahepatic andextrahepatic biliary ducts are | | appropriate given the postsurgical state.SPLEEN: The spleen is unremarkable. There is | | no splenomegaly.PANCREAS: The pancreas is unremarkable. The pancreatic duct is not | | dilated.ADRENALS: No adrenal enlargement. No adrenal masses.KIDNEYS: The kidneys are | | symmetrically enhancing. There are no focal renallesions. Nephrolithiasis is not | | excluded given the presence of contrast in thecollecting systems. There is no | | obstructive uropathy.BOWEL: There are scattered diverticula. No evidence for | | diverticulitis. Noappendicitis. Gastric reduction surgery areas No gastrointestinal | | tractobstruction.VASCULATURE AND LYMPH NODES: There is no aneurysmal dilatation of the | | abdominalaorta. There is no pelvic or abdominal lymphadenopathy.BLADDER: The bladder is | | unremarkable.BONES: There are no acute osseous abnormalities. There are no suspicious | | lyticor blastic bone lesions.OTHER: There is no free fluid. There is no free air. | | IMPRESSION: No evidence for pulmonary embolism.No CT evidence for acute disease in the | | chest.Gastric reduction changes.No evidence for gastrointestinal tract obstruction or | | perforation.Diverticulosis without active diverticulitis.Dictated and Signed by: Zeeshan Hamilton | | MD [place] Electronically signed: 12/02/2019 1:24 PM | | | |ABDOMEN AND PELVIS: | | | |LIVER: The liver is unremarkable. Fatty infiltration of the liver is difficult | |to exclude. There are no focal liver lesions. Mild hepatomegaly. | | | |GALLBLADDER: The gallbladder is surgically absent. The intrahepatic and | |extrahepatic biliary ducts are appropriate given the postsurgical state. | | | |SPLEEN: The spleen is unremarkable. There is no splenomegaly. | | | |PANCREAS: The pancreas is unremarkable. The pancreatic duct is not dilated. | | | |ADRENALS: No adrenal enlargement. No adrenal masses. | | | |KIDNEYS: The kidneys are symmetrically enhancing. There are no focal renal | |lesions. Nephrolithiasis is not excluded given the presence of contrast in the | |collecting systems. There is no obstructive uropathy. | | | |BOWEL: There are scattered diverticula. No evidence for diverticulitis. No | |appendicitis. Gastric reduction surgery areas No gastrointestinal tract | |obstruction. | | | |VASCULATURE AND LYMPH NODES: There is no aneurysmal dilatation of the abdominal | |aorta. There is no pelvic or abdominal lymphadenopathy. | | | |BLADDER: The bladder is unremarkable. | | | |BONES: There are no acute osseous abnormalities. There are no suspicious lytic | |or blastic bone lesions. | | | |OTHER: There is no free fluid. There is no free air. | | | | | |IMPRESSION: | | | |No evidence for pulmonary embolism. | | | |No CT evidence for acute disease in the chest. | | | |Gastric reduction changes. | | | |No evidence for gastrointestinal tract obstruction or perforation. | | | |Diverticulosis without active diverticulitis. | | | |Dictated and Signed by: Zeeshan Isbell MD | | Electronically signed: 12/02/2019 1:24 PM | + + + +---------+ + + | Performing | Address | City/State/Zipcode | Phone Number | | Organization | | | | + +---------+ + + | [facility] | | | | + +---------+ + + XR Chest AP Portable (12/02/2019 11:53 AM PST) + + | Specimen | + + | | + + + + + | Impressions | Performed At | + + + | No radiographic evidence for acute disease in the chest. | [facility] | | Dictated and Signed by: Zeeshan Isbell MD Electronically signed: | | | 12/02/2019 1:40 PM | | + + + + + + | Narrative | Performed At | + + + | EXAM: XR CHEST AP PORTABLE dated 12/02/2019 11:53 AM HISTORY: | [facility] | | EMESIS GI BLEEDING CHEST PAIN Comparison: 06/30/2019 | | | TECHNIQUE: A single portable view of the chest. FINDINGS: The | | | lungs are symmetrically aerated. They are clear. There are no | | | large pleural effusions. There is no pneumothorax. The cardiac | | | and mediastinal contours are not enlarged. No acute osseous | | | abnormalities. | | + + + + + | Procedure Note | + + | Rudolph, Rad Results In - 12/02/2019 1:43 PM PST EXAM: XR CHEST AP PORTABLE dated | | 12/02/2019 11:53 AMHISTORY: [facility] PAINComparison: 06/30/2019TECHNIQUE: A | | single portable view of the chest.FINDINGS:The lungs are symmetrically aerated. They | | are clear. There are no largepleural effusions. There is no pneumothorax. The cardiac | | and mediastinalcontours are not enlarged. No acute osseous abnormalities. IMPRESSION: | | No radiographic evidence for acute disease in the chest.Dictated and Signed by: Zeeshan Hamilton | | MD [place] Electronically signed: 12/02/2019 1:40 PM | | | |TECHNIQUE: A single portable view of the chest. | | | |FINDINGS: | | | |The lungs are symmetrically aerated. They are clear. There are no large | |pleural effusions. There is no pneumothorax. The cardiac and mediastinal | |contours are not enlarged. No acute osseous abnormalities. | | | |IMPRESSION: | | | |No radiographic evidence for acute disease in the chest. | | | |Dictated and Signed by: Zeeshan Isbell MD | | Electronically signed: 12/02/2019 1:40 PM | + + + +---------+ + + | Performing | Address | City/State/Zipcode | Phone Number | | Organization | | | | + +---------+ + + | [facility] | | | | + +---------+ + + Troponin I (12/02/2019 11:42 AM PST) + + + + + + | Component | Value | Ref Range | Performed | Pathologist | | | | | At | Signature | + + + + + + | Troponin I | <0.01Comment: | <0.06 ng/mL | [facility] | | | | Comment:Reference | | [facility] | | | | Ranges: 0.00-0.06 = [...] | | | | | | [employer] | | | | | [...] [address] | [place] | [phone] | | [facility] | | [address] | | | - LABORATORY | | | | + + + + + Lipase (12/02/2019 11:42 AM PST) + + + + + + | Component | Value | Ref Range | Performed | Pathologist | | | | | At | Signature | + + + + + + | Lipase | 41Comment: New method in | 12 - 53 U/L | [facility] | | | | use as of January 24, | | [facility] | | | | 2018. Check reference [...] + | [facility] | [address] | [place] | [phone] | | [facility] | | [address] | | | - LABORATORY | | | | + + + + + Comprehensive Metabolic Panel (12/02/2019 11:42 AM PST) + + + + + + | Component | Value | Ref Range | Performed | Pathologist | | | | | At | Signature | + + + + + + | Na | 143 | 136 - 145 | [facility] | | | | | mmol/L | [facility] | | | | | [facility] | | | | | | CENTER - | | | | | | LABORATORY | | + + + + + + | K | 4.1 | 3.4 - 5.1 | [facility] | [...] + + + + | CO2 | 27 | 20 - 31 mmol/L | [facility] | | | | | | [facility] | | | | | | MEDICAL | | | | | | CENTER - | | | | | | LABORATORY | | + + + + + + | Anion Gap | 10 | 3 - 16 mmol/L | [facility] | | | | | | [facility] | | | | | | MEDICAL | | | | | | CENTER - | | | | | | LABORATORY | | + + + + + + | Glucose | 96 | 60 - 106 mg/dL | [facility] | | | | | | [facility] | | | | | | MED[facility] | | | | | | CENTER - | | | | | | LABORATORY | | + + + + + + | BUN | 13 | 9 - 23 mg/dL | [facility] [...] | mL/min/1.73m2 | [facility] | | | [place] | RATE,ESTIMATED | | MEDICAL | | | | mL/min/[id number] than | | CENTER - | | [...] + + + + | Calcium | 9.8 | 8.7 - 10.4 | [facility] | | | | | mg/dL | [...] + + + + | Bilirubin | 0.6 | 0.3 - 1.2 mg/dL | [facility] | | | Total | | | [facility] | | [...] + + + + | AST | 19 | 0 - 34 U/L | [facility] | | | | | | [facility] | | | | | | MEDICAL | | | | | | CENTER - | | | | | | LABORATORY | | + + + + + + | ALT | 13 | 10 - 49 U/L | [facility] | | | | | | [facility] | | | | | | MEDICAL | | | | | | CENTER - | | | | | | LABORATORY | | + + + + + + | Alkaline | 40 (L) | 46 - 116 U/L | [...] + + + + | BUN/Creatin | 17.3 | | [facility] | | | ine [...] [address] | [place] | [phone] | | [facility] | | [address] | | | - LABORATORY | | | | + + + + + CBC with Differential (12/02/2019 11:42 AM PST) + + + + + + | Component | Value | Ref Range | Performed | Pathologist | | | | | At | Signature | + + + + + + | White Blood | 6.8 | 4.0 - 11.0 K/uL | [facility] | | | Cells | | | [facility] | | | | | | MEDICAL | | | | | | CENTER - | | | | | | LABORATORY | | + + + + + + | Red Blood | 4.14 (L) | 4.30 - 5.70 | [facility] | | | Cells | | M/uL | [facility] | | | | | | MEDICAL | | | | | | CENTER - | | | | | | LABORATORY | | + + + + + + | Hemoglobin | 12.3 (L) | 13.5 - 18.0 | [facility] | | | | | g/dL | [facility] | | | | | | MEDICAL | | | | | | CENTER - | | | | | | LABORATORY | | + + + + + + | Hematocrit | 37.3 (L) | 40.0 - 51.0 % | [facility] | | | | | | [facility] | | | | | | MEDICAL | | | | | | CENTER - | | | | | | LABORATORY | | + + + + + + | MCV | 90.1 | 83.0 - 101.0 fL | [facility] | | | | | | [facility] | | | | | | MEDICAL | | | | | | CENTER - | | | | | | LABORATORY | | + + + + + + | MCH | 29.7 | 28.0 - 35.0 pg | [facility] | | | | | | [facility] | | | | | | MEDICAL | | | | | | CENTER - | | | | | | LABORATORY | | + + + + + + | MCHC | 33.0 | 32.0 - 36.0 | [facility] | [...] + + + + | MPV | 9.6 | 6.5 - 12.4 fL | [facility] | | | | | | [facility] | | | | | | MEDICAL | | | | | | CENTER - | | | | | | LABORATORY | | + + + + + + | % | 64.6 | 45.0 - 82.0 % | [facility] | | | Neutrophils | | | [facility] | | | | | | MEDICAL | | | | | | CENTER - | | | | | | LABORATORY | | + + + + + + | % | 24.6 | 20.0 - 45.0 % | [facility] | | | Lymphocytes | | | [facility] | | | | | | MEDICAL | | | | | | CENTER - | | | | | | LABORATORY | | + + + + + + | % Monocytes | 5.8 | 4.0 - 12.0 % | [facility] | | | | | | [facility] | | | | | | MEDICAL | | | | | | CENTER - | | | | | | LABORATORY | | + + + + + + | % | 4.3 | 0.0 - 5.0 % | [facility] | | | Eosinophils | | | [facility] | | | | | | MEDICAL | | | | | | CENTER - | | | | | | LABORATORY | | + + + + + + | % Basophils | 0.6 | 0.0 - 1.0 % | [facility] [...] + + + + | Absolute | 4.38 | 1.80 - 8.50 | [facility] | | | Neutrophils | | K/uL | [facility] | | | | | | MEDICAL | | | | | | CENTER - | | | | | | LABORATORY | | + + + + + + | Absolute | 1.67 | 0.60 - 3.20 | [facility] | | | Lymphocytes | | K/uL | [facility] | | | | | | MEDICAL | | | | | | CENTER - | | | | | | LABORATORY | | + + + + + + | Absolute | 0.39 | 0.00 - 1.00 | [facility] | | | Monocytes | | K/uL | [facility] | | | | | | MEDICAL | | | | | | CENTER - | | | | | | LABORATORY | | + + + + + + | Absolute | 0.29 | 0.00 - 0.40 | [facility] | | | Eosinophils | | K/uL | [facility] | | | | | | MEDICAL | | | | | | CENTER - | | | | | | LABORATORY | | + + + + + + | Absolute | 0.04 | 0.00 - 0.10 | [facility] | | | Basophils | | K/uL | [facility] | | | | | | MEDICAL | | | | | | CENTER - | | | | | | LABORATORY | | + + + + + + | Absolute | 0.01 | 0.00 - 0.03 | [facility] | | | Immature | | K/uL | [facility] | | | Granulocyte | | | MEDICAL | | | s | | | CENTER - | | | | | | LABORATORY | | + + + + + + | % nRBC | 0 | 0 - 2 per 100 | [facility] | | | | | WBCs | [facility] | | | | | | MEDICAL | | | | | | CENTER - | | | | | | LABORATORY | | + + + + + + | Absolute | 0.00 | 0.00 - 0.01 | [facility] | | | nRBC | | K/uL | [facility] | [...] + | [facility] | [address] | [place] | [phone] | | [facility] | | [address] | | | - LABORATORY | | | | + + + + + ECG 12 lead (12/02/2019 11:39 AM PST) + + + + + + | Component | Value | Ref Range | Performed | Pathologist | | | | | At | Signature | + + + + + + | VENTRICULAR | 68 | BPM | [facility] | | | RATE EKG | | | | | + + + + + + | ATRIAL RATE | 68 | BPM | [facility] | | + + + + + + | P-R | 138 | ms | [facility] | | | INTERVAL | | | | | + + + + + + | QRS | 88 | ms | [facility] | | | DURATION | | | | | + + + + + + | Q-T | 400 | ms | [facility] | | | INTERVAL | | | | | + + + + + + | Q-T | 425 | ms | [facility] | | | INTERVAL | | | | | | (CORRECTED) | | | | | + + + + + + | P WAVE AXIS | 5 | degrees | [facility] | | + + + + + + | QRS AXIS | 20 | degrees | [facility] | | + + + + + + | T AXIS | 29 | degrees | [facility] | | + + + + + + | INTERPRETAT | Normal sinus | | [facility] | | | ION TEXT | rhythmMinimal voltage | | | | | | criteria for LVH, may be | | | | | | normal variantWhen | | | | | | compared with ECG of | | | | | | 01-OCT-2017 | | | | | | 18:50,Nonspecific T wave | | | | | | abnormality no longer | | | | | | evident in Lateral | | | | | | leadsT wave amplitude | | | | | | has increased in | | | | | | Inferior leadsConfirmed | | | | | | by NOREEN JACKSON MD | | | | | | ([id number]) on 12/03/2019 | | | | | | 6:33:55 AM | | | | + + [...] + | Diagnosis | + + | Hematemesis with nausea - Primary | + + | 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 | + + | Learning disability Other specific developmental learning difficulties | + + | S/P laparoscopic sleeve gastrectomy | + + | Klinefelter syndrome Klinefelter's syndrome | + + documented in this encounter Admitting Diagnoses + + | Diagnosis | + + | 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 Shake well., | | | | | | + +--------+ +--------+------+------+ + +---+ | | | + +---+ | aluminum & magnesium | | | hydroxide-simethicone (MAALOX | | | PLUS REGULAR STRENGTH) 200-200-20 | | | mg/5 mL suspension 30 mL 30 mL, | | | Oral, ONCE PRN, Indigestion, | | | Pain, Starting 12/02/19 at | | | 1728, For 1 dose, Mix lidocaine | | | and Maalox. Shake well., | | + +---+ | | | + +---+ + +-------+ +--------+---+---+ | fentaNYL (PF) injection 50 mcg | Given | 12/02/19 | 50 mcg | | | | 50 mcg, Intravenous, ONCE, Sun | | 20 1:13 | | | | | 12/02/19 at 1220, For 1 dose | | PM PST | | | | + +-------+ +--------+---+---+ +---+---+ | | | +---+---+ + +-------+ +--------+---+---+ | HYDROmorphone (DILAUDID) | Given | 12/02/19 | 0.8 mg | | | | injection 0.4-0.8 mg 0.4-0.8 mg, | | 20 11:58 | | | | | Intravenous, EVERY 2 HOURS PRN, | | PM PST | | | | | Pain, Starting 12/02/19 at 1701 | | | | | | + +-------+ +--------+---+---+ +-------+ +--------+---+---+ | Given | 12/02/19 | 0.8 mg | | | | | 20 7:53 | | | | | | PM PST | | | | +-------+ +--------+---+---+ | Given | 12/02/19 | 0.8 mg | | | | | 20 5:45 | | | | | | PM PST | | | | +-------+ +--------+---+---+ +---+---+ | | | +---+---+ + +-------+ +---------+---+---+ | iohexol (OMNIPAQUE 350) 350 | Given | 12/02/19 | 115 mLs | | | | mg/mL injection 115 mL 115 mL, | | 20 12:48 | | | | | Intravenous, ONCE PRN, Other, for | | PM PST | | | | | imaging CT study, Starting Sun | | | | | | | 12/02/19 at 1248, For 1 dose, | | | | | | | Radiology | | | | | | + +-------+ +---------+---+---+ +---+---+ | | | +---+---+ + +---------+ +---+-------+---+ | lactated ringers (LR) infusion | New Bag | 12/03/19 | | 100 | | | at 100 mL/hr, Intravenous, | | 20 4:12 | | mL/hr | | | CONTINUOUS, Starting 12/02/19 | | AM PST | | | | | at 1700 | | | | | | + +---------+ +---+-------+---+ +---------+ +---+-------+---+ | New Bag | 12/02/19 | | 100 | | | | 20 5:40 | | mL/hr | | | | PM PST | | | | +---------+ +---+-------+---+ +---+---+ | | | +---+---+ + +-------+ +--------+---+---+ | lidocaine (XYLOCAINE) 2% | Given | 12/02/19 | 10 mLs | | | | viscous solution 10 mL 10 mL, | | 20 11:33 | | | | | Oral, ONCE, 12/02/19 at 1130, | | AM PST | | | | | For 1 dose, Mix lidocaine and | | | | | | | MAALOX. Peng wilkerson., | | | | | | + +-------+ +--------+---+---+ + +---+ | | | + +---+ | lidocaine (XYLOCAINE) 2% | | | viscous solution 10 mL 10 mL, | | | Oral, ONCE PRN, Pain, Starting | | | 12/02/19 at 1728, For 1 dose, | | | Mix lidocaine and MAALOX. Shake | | | well., | | + +---+ | | | + +---+ | lidocaine (XYLOCAINE) 2% | | | viscous solution 15 mL 15 mL, | | | Mouth/Throat, EVERY 3 HOURS PRN, | | | Pain, Starting 12/02/19 at | | | 1618, Patient should not swallow | | | more than 60 mL in any 24 hour | | | period., | | + +---+ | | | + +---+ + +-------+ +------+---+---+ | melatonin tablet 3 mg 3 mg, | Given | 12/02/19 | 3 mg | | | | Oral, NIGHTLY PRN, Insomnia, | | 20 11:58 | | | | | Starting 12/02/19 at 2310 | | PM PST | | | | + +-------+ +------+---+---+ + +---+ | | | + +---+ | metoclopramide (REGLAN) 5 mg/mL | | | injection 10 mg 10 mg, | | | Intravenous, EVERY 6 HOURS PRN, | | | Nausea, Vomiting, Starting Sun | | | 12/02/19 at 1701, Protect from | | | light., | | + +---+ | | | + +---+ + +-------+ +------+---+---+ | morphine injection 2 mg 2 mg, | Given | 12/02/19 | 2 mg | | | | Intravenous, ONCE, 12/02/19 at | | 20 2:19 | | | | | 1350, For 1 dose | | PM PST | | | | + +-------+ +------+---+---+ + +---+ | | | + +---+ | ondansetron (ZOFRAN ODT) | | | disintegrating tablet 4 mg 4 mg, | | | Oral, EVERY 6 HOURS PRN, Nausea, | | | Vomiting, Starting 12/03/19 at | | | 1616 | | + +---+ | | | + +---+ + +-------+ +------+---+---+ | ondansetron (ZOFRAN) injection | Given | 12/03/19 | 4 mg | | | | 4 mg 4 mg, Intravenous, EVERY 6 | | 20 2:43 | | | | | HOURS PRN, Nausea, Vomiting, | | PM PST | | | | | Starting 12/02/19 at 1702, | | | | | | | First line agent, | | | | | | + +-------+ +------+---+---+ +---+---+ | | | +---+---+ + +-------+ +-------+---+---+ | pantoprazole (PROTONIX) DR | Given | 12/04/19 | 40 mg | | | | tablet 40 mg 40 mg, Oral, 2 | | 20 6:33 | | | | | TIMES DAILY BEFORE MEALS, First | | AM PST | | | | | dose on 12/03/19 at 1630, Do | | | | | | | not cut or crush., Indication: | | | | | | | Bleed, upper GI | | | | | | + +-------+ +-------+---+---+ +-------+ +-------+---+---+ | Given | 12/03/19 | 40 mg | | | | | 20 4:40 | | | | | | PM PST | | | | +-------+ +-------+---+---+ +---+---+ | | | +---+---+ + +-------+ +-------+---+---+ | pantoprazole (PROTONIX) | Given | 12/02/19 | 40 mg | | | | injection 40 mg 40 mg, | | 20 11:38 | | | | | Intravenous, DAILY, First dose on | | AM PST | | | | | 12/02/19 at 1130, Indication: | | | | | | | Bleed, upper GI | | | | | | + +-------+ +-------+---+---+ +---+---+ | | | +---+---+ + +-------+ +-------+---+---+ | pantoprazole (PROTONIX) | Given | 12/03/19 | 40 mg | | | | injection 40 mg 40 mg, | | 20 9:24 | | | | | Intravenous, 2 TIMES DAILY, First | | AM PST | | | | | dose (after last modification) | | | | | | | on 12/02/19 at 1705, | | | | | | | Indication: Bleed, upper GI | | | | | | + +-------+ +-------+---+---+ +-------+ +-------+---+---+ | Given | 12/02/19 | 40 mg | | | | | 20 5:45 | | | | | | PM PST | | | | +-------+ +-------+---+---+ + +---+ | | | + +---+ | prochlorperazine tablet 10 mg | | | 10 mg, Oral, EVERY 6 HOURS PRN, | | | Nausea, Vomiting, Starting Mon | | | 12/03/19 at 1616 | | + +---+ | | | + +---+ + +---------+ +--------+-------+---+ | sodium chloride 0.9% (NS) bolus | New Bag | 12/02/19 | 1,000 | 2000 | | | 1,000 mL 1,000 mL, Intravenous, | | 20 11:41 | mLs | mL/hr | | | Administer over 30 Minutes, | | AM PST | | | | | ONCE, 12/02/19 at 1130, For 1 | | | | | | | dose | | | | | | + +---------+ +--------+-------+---+ +---+---+ | | | +---+---+ + +------+ +--------+-------+---+ | sodium chloride 0.9% (NS) bolus | Push | 12/02/19 | 60 mLs | 3600 | | | 60 mL 60 mL, Intravenous, | | 20 12:49 | | mL/hr | | | Administer over 1 Minutes, ONCE | | PM PST | | | | | PRN, for imaging CT study, | | | | | | | Starting 12/02/19 at 1248, For | | | | | | | 1 dose, Radiology | | | | | | + +------+ +--------+-------+---+ +---+---+ | | | +---+---+ documented in this encounter
--- OUTSIDE RECORDS SUMMARY | ~2020-07-13 | XMS | Encounter Summary ---
Demographics + + + | Address | [address] | | | [place] [address] | + + + | Home Phone | | + + + | Preferred Language | Unknown | + + + | Marital Status | Single | + + + | Synagogue Affiliation | Unknown | + + + | Race | White | + + + | Ethnic Group | Not or | + + + Author + + + | Author | [facility] | | | and [place] | + + + | Organization | [facility] | | | [...] | | | | | [place] [address] | | + + + + + Care Team Providers + +------+ + | Care Lead Inspector Name | Role | Phone | + +------+ + | Chance Dudley MD | PCP | | + +------+ + Reason for Visit +---------+--------+ + | Reason | Onset | Comments | | | Date | | +---------+--------+ + | Results | 08/09/ | | | | 2015 | | +---------+--------+ + Encounter Details +--------+ + + + + | Date | Type | Department | Care Team | Description | +--------+ + + + + | 08/09/ | Telephone | [facility] | Chance Dudley, | Results | | 2016 | | [facility] [place] | [address] | | | | | [address] | [place], [place] | | | | | [place], [place] | [address] | | | | | [address] | | | | | | [phone] | | | +--------+ + + + [...] this encounter Miscellaneous Notes Telephone Encounter - Samantha Taveras LPN - 08/10/2016 9:06 AM PDTCalled patient and not ified him. Patient verbalized understanding. elephone Encounter - Chance Dudley MD - 08/09/2016 5:24 PM PDTWill you please let Stiven know that his hip x- ray is reassuring. No concerning findings. Will follow-up with him after his shoulder MRI. Thanks, Saurabh Dudley MD documented in this e [...]
--- OUTSIDE RECORDS SUMMARY | ~2020-07-13 | XMS | Encounter Summary ---
Demographics + + + | Address | [address] | | | [place] [address] | + + + | Home Phone | | + + + | Preferred Language | Unknown | + + + | Marital Status | Single | + + + | Confucianist Affiliation | Unknown | + + + | Race | White | + + + | Ethnic Group | Not or | + + + Author + + + | Author | [facility] | | | and [place] | + + + | Organization | [facility] | | | [...] | | | | | [place] [address] | | + + + + + Care Team Providers + +------+ + | Care Content Checker Name | Role | Phone | + +------+ + | Chance Dudley MD | PCP | | + +------+ + Reason for Visit +---------+--------+ + | Reason | Onset | Comments | | | Date | | +---------+--------+ + | Results | 05/03/ | | | | 2017 | | +---------+--------+ + Encounter Details +--------+ + + + + | Date | Type | Department | Care Team | Description | +--------+ + + + + | 05/03/ | Telephone | [facility] | Chance Dudley, | Results | | 2017 | | [facility] [place] | [address] | | | | | [address] | [place], [place] | | | | | [place], [place] | [address] | | | | | [address] | | | | | | [phone] | | | +--------+ + + + [...] this encounter Miscellaneous Notes Telephone Encounter - Chance Dudley MD - 05/03/2017 6:21 PM PDTWill you please help STIVEN schedule an appointment with me some time in the next 2-3 weeks. Thanks! Saurabh Dudley MD elephone Encounter - Chance Dudley MD - 05/03/2017 5:42 PM PDTSpoke with STIVEN's mom. He is back in town but away from phone. Asked them to schedule appointment to review test results. Explained mani t there is nothing emergent - but that we should meet to review them in more detail. She wi ll call back tomorrow to schedule. Saurabh Dudley MD documented in this e [...] [place] | | | | | | [id number] | | | | | | | | +--------+---------+ + + + documented as of this encounter Visit Diagnoses Not on filedocumented in this encounter"
--- OUTSIDE RECORDS SUMMARY | ~2020-07-13 | XMS | Encounter Summary ---
Demographics + + + | Address | [address] | | | [place] [address] | + + + | Home Phone [...] MANRIQUE | | | | | [place] [address] | | + + + + + Care Team Providers + +------+ + | Care Cognos Name | Role | Phone | + +------+ + | Chance Dudley MD | PCP | | + +------+ + Reason for Visit + + + | Reason | Comments | + + + | Follow-up | feeling better. States last time he was feeling dizzy, while | | | sitting down, felt like body was moving but that has gone away | + + + | Other | states that he has pretty much lost all feeling in his left | | | thumb. He is currently wearing a thumb spica splint | + + + Encounter Details +--------+---------+ + + + | Date | Type | Department | Care Team | Description | +--------+---------+ + + + | 08/16/ | Office | [facility] | Chance Dudley, | Fracture of head of | | 2019 | Visit | [facility] [place] | [address] | first metacarpal | | | | [address] | [place] | bone (Primary Dx); | | | | [place] | [address] | Type 2 diabetes | | | | [address] | | mellitus without | | | | [phone] | | complication, | | | | | | without long-term | | | | | | current use of | | | | | | insulin (HCC); Need | | | | | | for immunization | | | | | | against influenza; | | | | | | Closed fracture of | | | | | | multiple ribs of | | | | | | both sides, initial | | | | | | encounter; Closed | | | | | | fracture of sternum, | | | | | | unspecified portion | | | | | | of sternum, initial | | | | | | encounter; Obesity | | | | | | (BMI 30.0-34.9) | +--------+---------+ + + + Social History [...] + + + | Blood Pressure | 122/72 | 08/16/2019 10:59 AM | | | | | PDT | | + + + + + | Pulse | 56 | 08/16/2019 10:59 AM | | | | | PDT | | + + + + + | Temperature | 36.7 C (98.1 F) | 08/16/2019 10:59 AM | | | | | PDT | | + + + + + | Respiratory Rate | 16 | 08/16/2019 10:59 AM | | | | | PDT | | + + + + + | Oxygen Saturation | 99% | 08/16/2019 10:59 AM | | | | | PDT | | + + + + + | Inhaled Oxygen | - | - | | | Concentration | | | | + + + + + | Weight | 117.8 kg (259 lb | 08/16/2019 10:59 AM | | | | 11.2 oz) | PDT | | + + + + + | Height | - | - | | + + + + + | Body Mass Index | 34.26 | 07/18/2019 8:54 AM | | | [...] Instructions Patient Instructions Chance Dudley MD - 08/16/2019 11:15 AM PDTHave the MRI of your [facility] tomorrow as planned. Call Dr Mckeon's office to schedule a follow-up appointment. Apply a topical antibiotic to the scab on your chest twice daily. If the wound worsens or develops pus drainage or worsened redness - please follow-up with u s. documented in this encounter Progress Notes Lakia Daugherty LPN - 08/16/2019 11:15 AM PDTAfter obtaining informed consent, the immuni zation is given by Vic BALDWIN. todChance marshall M D - 08/16/2019 11:15 AM PDT Subjective: Patient ID: Stiven Davila is a 34 y.o. male who is here today for Follow-up (feeling better. States last time he was feeling dizzy, while sitting down, felt like body was moving but that has gone away) and Other (states that he has pretty much lost all feeling in his l eft thumb. He is currently wearing a thumb spica splint) HPI His left thumb is about the same as when we last met. He is wearing thumb spica splint con sistently. He will have pain at base of thumb with any movement. His thumb has been numb x 1 week. No new injuries. The dizziness resolved. He is not sure what made it better - just woke up one day and dizz iness resolved. Rib and abdominal pain resolved but does still have some sternal pressure. No further hemo ptysis. No unusual SOB. No edema, orthopnea. Developed sore on his sternum 3 days ago after being strapped in the [id number] 4 pool (harnass within a cage). No fever. He is now using testosterone consistently. Patient's medications, allergies, past medical, surgical, social and family histories were obtained and reviewed as appropriate. Review of Systems Objective: BP 122/72 | Pulse 56 | Temp 36.7 C (98.1 F) (Temporal) | Resp 16 | Wt 117.8 kg (259 lb 11.2 oz) | SpO2 99% | BMI 34.26 kg/m Physical Exam Constitutional: Very pleasant, well developed, NAD Cardiovascular: Normal rate, regular rhythm, normal heart sounds and intact distal pulses. Exam reveals no gallop and no friction rub. No murmur heard. Pulmonary/Chest: Breath sounds normal. No respiratory distress. He has no wheezes. He has n o rales. He exhibits tenderness (mild upper sternal tenderness). Musculoskeletal: He exhibits no edema. Able to wiggle left thumb Neurological: Left thumb sensation intact to light touch. Monofilament dulled but has sensation laterall y (radial) with minimal sensation medially (ulnar) Skin: 1.5x0.7 cm scab of upper sternum with scant surrounding erythema. No warmth, bleeding, chen ration, discharge Assessment & Plan: 1. Fracture of head of first metacarpal bone: Dr Mckeon's note reviewed. Greatly appreci ate his assistance - MRI tomorrow as planned - Continue thumb spica splint - Schedule follow-up with Dr Mckeon 2. Type 2 diabetes mellitus without complication, without long-term current use of insulin (HCC): A1c normal without medications s/p gastric sleeve - If A1c normal on recheck will consider cured 3. Need for immunization against influenza - Influenza *PF 3 yr or >, Quadrivalent PSKT or Vial 4. Closed fracture of multiple ribs of both sides, sternum fracture: Clinically improving without s/s of pneumothorax, pneumonia. - Continue lifting restrictions - Educated on warning signs Abrasion chest: No signs of infection - Educated on wound care, warning signs 6. Obesity (BMI 30.0-34.9): Much improved sp bariatric surgery Return in about 1 month (around 09/13/2019). Saurabh Dudley MD documented in this e ncounter Plan of Treatment +--------+---------+ + + + | Date | Type | Specialty | Care Team | Description | +--------+---------+ + + + | 07/22/ | Office | Family Medicine | Chance Dudley, | | | 2019 | Visit | | MD [facility] | | | | | | [place] | | | | | | [address] | | | | | | | | +--------+---------+ + + + documented as of this encounter Visit Diagnoses + + | Diagnosis | + + | Fracture of head of first metacarpal bone - Primary | + + | Type 2 diabetes mellitus without complication, without long-term current use of | | insulin (HCC) | + + | Need for immunization against influenza Need for prophylactic vaccination and | | inoculation against influenza | + + | Closed fracture of multiple ribs of both sides, initial encounter | + + | Closed fracture of sternum, unspecified portion of sternum, initial encounter | + + | Obesity (BMI 30.0-34.9) Obesity, unspecified | + + documented in this encounter"
--- OUTSIDE RECORDS SUMMARY | ~2020-07-13 | XMS | Encounter Summary ---
Demographics + + + | Address | [address] | | | [place] [address] | + + + | Home Phone | | + + + | Preferred Language | Unknown | + + + | Marital Status | Single | + + + | Congregation Affiliation | Unknown | + + + | Race | White | + + + | Ethnic Group | Not or | + + + Author + + + | Author | [facility] | | | and [place] | + + + | Organization | [facility] | | | and [...] | | | | | [place] [address] | | + + + + + Care Team Providers + +------+ + | Care Pipe Smoking Machine Operator Name | Role | Phone | + +------+ + | Chance Dudley MD | PCP | | + +------+ + Reason for Visit + +--------+ + | Reason | Onset | Comments | | | Date | | + +--------+ + | Lab Order | 07/06/ | | | | 2018 | | + +--------+ + Encounter Details +--------+ + + + + | Date | Type | Department | Care Team | Description | +--------+ + + + + | 07/06/ | Telephone | [facility] | Chance Dudley, | Lab Order | | 2019 | | [facility] [place] | [address] | | | | | [address] | [place] | | | | | [place] | [address] | | | | | [address] | | | | | | [phone] | | | +--------+ + + + [...] this encounter Miscellaneous Notes Telephone Encounter - Lakia Daugherty LPN - 07/09/2019 9:00 AM PDTSpoke with Claudia pedraza [facility] lab that order will be cancelled.Electronically signed by Lakia Daugherty LPN at 0 07/09/2019 9:01 AM PDTTelephone Encounter - Chance Dudley MD - 07/06/2019 4:44 PM PDTHi s anemia resolved - so we can cancel the peripheral smear. Thanks! Saurabh Dudley MD elephone Encounter - Lakia Daugherty LPN - 07/06/2019 2:43 PM PDTGary from the lab called to say that Dr. White ordered an H&H, and proliferal smear yesterday. They are unable to do the proliferal smear unless they have a CBC. Does Dr. Dudley want a CBC ordered and done? documented in this encounter Plan of Treatment [...]
--- OUTSIDE RECORDS SUMMARY | ~2020-07-13 | XMS | Encounter Summary ---
Demographics + + + | Address | [address] | | | [place] [address] | + + + | Home Phone | | + + + | Preferred Language | Unknown | + + + | Marital Status | Single | + + + | Sikhism Affiliation | Unknown | + + + | Race | White | + + + | Ethnic Group | Not or | + + + Author + + + | Author | [facility] | | | and [place] | + + + | Organization | [facility] | | | [...] [place] | | | | | [place] [address] | | + + + + + Care Team Providers + +------+ + | Care Diet Counselor Name | Role | Phone | + +------+ + | Chance Dudley MD | PCP | | + +------+ + Reason for Referral Evaluate & Treat (Routine) +--------+ + + + + + | Status | Reason | Specialty | Diagnoses / | Referred By | Referred To | | | | | Procedures | Contact | Contact | +--------+ + + + + + | Closed | Specialty | Diabetes | Diagnoses | [place], | [facility] | | | Services | Educator | Prediabetes | Chance Brewster MD | [address] | | | Required | | | [address] | [place] | | | | | [address] [place] | [place], [place] | | | | | | [place], [place] | [address] | | | | | | [address] | Phone: | | | | | | Phone: | [phone] | | | | | | [phone] | Fax: | | | | | | Fax: | [phone] | | | | | | [phone] | | +--------+ + + + + + Reason for Visit + + + | Reason | Comments | + + + | Wound Check | | + + + Encounter Details +--------+---------+ + + + | Date | Type | Department | Care Team | Description | +--------+---------+ + + + | 06/12/ | Office | [facility] | Chance Dudley, | Chronic wound of | | 2013 | Visit | [facility] [place] | [address] | extremity (Primary | | | | [address] | [place] | Dx); Prediabetes | | | | [place] | [address] | | | | | [address] | | | | | | [phone] | | | +--------+---------+ + + + [...] + + + | Blood Pressure | 130/88 | 06/12/2013 1:29 PM | | | | | PDT | | + + + + + | Pulse | 70 | 06/12/2013 1:29 PM | | | | | PDT | | + + + + + | Temperature | 36.2 C (97.1 F) | 06/12/2013 1:29 PM | | | | | PDT | | + + + + + | Respiratory Rate | 16 | 06/12/2013 1:29 PM | | | | | PDT | | + + + + + | Oxygen Saturation | - | - | | + + + + + | Inhaled Oxygen | - | - | | | Concentration | | | | + + + + + | Weight | 166 kg (366 lb) | 06/12/2013 1:29 PM | | | | | PDT | | + + + + + | Height | 188 cm (6' 2") | 06/12/2013 1:29 PM | | | | | PDT | | + + + + + | Body Mass Index | 46.99 | 06/12/2013 1:29 PM | | | | | PDT | | + + + + + documented in this encounter Patient Instructions Patient Instructions Chance Dudley MD - 06/12/2013 1:56 PM PDT BP 130/88 | Pulse 70 | Temp 36.2 C (97.1 F) (Temporal) | Resp 16 | Ht 1.88 m (6' 2") | Wt 166.017 kg (366 lb) | BMI 46.99 kg/m2 Prediabetes You have been diagnosed with prediabetes. This means that the level of sugar (glucose) in y our blood is too high. If you have prediabetes, you are at risk for developing type 2 diabet es. Type 2 diabetes is diagnosed when the level of glucose in the blood reaches a certain hi gh level. With prediabetes, it hasn t yet reached this point. But it is higher than normal . It is vital to make lifestyle changes to lower your blood sugar, improve your health, and prevent diabetes. This sheet will tell you more. Why Worry About Prediabetes? Diabetes is a disease where the body s cells have trouble using glucose in the blood for energy. With prediabetes, the cells have started to have trouble using glucose. As a result, too much glucose stays in the blood. This can affect how your heart and blood vessels work. And, without changes in diet and lifestyle, the problem can get worse. Type 2 diabetes can develop. Once you have type 2 diabetes, it is chronic (ongoing) and needs to be managed for the rest of your life. Diabetes can harm the body and your health. It can damage organs, suc h as your eyes and kidneys. It makes you more likely to have heart disease. And it can damag e nerves and blood vessels. Risk Factors For Prediabetes The exact cause of prediabetes is not clear. But certain risk factors make a person more li pedro to have it. These include: A family history of type 2 diabetes Being overweight Being over age 40 Having had gestational diabetes Not being physically active Being , -Luxembourger, , , or Diagnosing Prediabetes Prediabetes has no symptoms. The only way to find it is with a blood test. You may have had one or both of these blood tests: Fasting glucose test. Blood is taken and tested after you have fasted (not eaten) for 8 hours. A normal test result is 99 milligrams per deciliter (mg/dL) or lower. Prediabetes is 100-125 mg/dL. Diabetes is 126 mg/dL and higher. Glucose tolerance test. Your blood sugar is measured before and after you drink a very s ugary liquid. A normal test result is 139 milligrams per deciliter (mg/dL) or lower. Prediab etes is 140-199 mg/dL. Diabetes is 200 mg/dL and higher. Treating Prediabetes The best way to treat prediabetes is to lose extra weight and be more physically active. Th marta changes help the body s cells use blood sugar better. Even a small amount of weight lo ss can help. Work with your healthcare provider to make a plan to eat well and be more activ e. Keep in mind that small changes can add up. Other changes in your lifestyle may make you less likely to develop diabetes. Your healthcare provider can talk with you about these. Follow-Up If it is untreated, prediabetes can turn into diabetes. This is a serious health condition. Take steps to stop this from happening. Follow the treatment plan you have been given. You may have your blood glucose tested again in about 12-18 months. Symptoms of Diabetes Most people do not have symptoms. But let your healthcare provider know if you have any of the following: Always feel very tired Feel very thirsty or hungry much of the time Have to urinate often Lose weight for no reason Feel numbness or tingling in your fingers or toes Have cuts or bruises that don t seem to heal Have blurry vision [phone] [facility], [address] [place] [address], [place] [address]. All rights reserve d. This information is not intended as a substitute for professional medical care. Always fo llow your healthcare professional's instructions. Diabetes: Understanding Carbohydrates Just as a car needs the right type of fuel (gas) to run, you need the right kind of fuel (f ood) to function. To sustain energy, your body needs food that contains carbohydrates. But c arbohydrates raise blood sugar levels higher and faster than other kinds of food. Your saurabh brooks will probably recommend that 50-60% of your calories come from carbohydrates. Starches Starches are found in grains, some vegetables, and beans. Grain products include bread, pas ta, cereal, and tortillas. Starchy vegetables include potatoes, peas, corn, anne beans, yams , and squash. Kidney beans, east beans, black beans, garbanzo beans, and lentils also conta in starches. Sugars Sugars are found naturally in many foods. Or sugar can be added. Foods that contain natural sugar include fruits and fruit juices, dairy products, honey, and molasses. Added sugars ar e found in most desserts, processed foods, candy, regular soda, and fruit drinks. Fiber Fiber comes from plant foods. Most fiber isn t digested by the body. Instead of raising b lood sugar levels like other carbohydrates, it actually keeps blood sugar from rising too fa st. Fiber is found in fruits, vegetables, whole grains, beans, peas, and many nuts. Carb Counting You can learn to figure out how many carbohydrates you are eating every day. Ask your saurabh brooks to teach you a technique called carb counting. This system helps you keep track o f the carbohydrates you eat at each meal. There are different ways to do carb counting. Basi c carb counting is described below. This method is a good way to get started with carb count ing. When you count carbohydrate servings, one serving of a starch, fruit, or dairy product c ounts as one carb. Each carb is about 15 grams of carbohydrate. For example: 1 slice of bread = 1 starch serving = 15 grams of carbohydrate 1 apple = 1 fruit serving = 15 grams of carbohydrate 1 cup milk = 1 dairy serving = 15 grams of carbohydrate Your dietitian will help you determine how many carbohydrate servings to have at each me al and snack. [phone] [facility], [address] [place] [address], [place] [address]. All rights reserve d. This information is not intended as a substitute for professional medical care. Always fo llow your healthcare professional's instructions. documented in this encounter Progress Notes Chance Dudley MD - 06/12/2013 1:47 PM PDTFormatting of this note might be different fr om the original. Subjective: Patient ID: Stiven Davila is a 28 y.o. male here for wound. Accompanied by mom. HPI He states he is taking cipro and clindamycin as prescribed (though mom has concerns that he does not always take them as prescribed). He is tolerating them well. His left leg wound is improving - smaller and less discharge. No fever, N/V, leg pain. They have a hard time with diet recall. They do eat out a lot. Sweet drinks are his vice. He does drink a lot of diet gatorade and energy drinks. He used to eat a lot of junk food , but has cut back on these. No vision changes, N/V, abdominal pain, polyuria, polydipsia, numbness/tingling in toes. Patient's medications, allergies, past medical, surgical, social and family histories were reviewed and updated as appropriate. Review of Systems See HPI BP 130/88 | Pulse 70 | Temp 36.2 C (97.1 F) (Temporal) | Resp 16 | Ht 1.88 m (6' 2") | Wt 166.017 kg (366 lb) | BMI 46.99 kg/m2 Objective: Physical Exam Constitutional: He appears well-developed and well-nourished. No distress. Cardiovascular: Normal rate, regular rhythm and normal heart sounds. Exam reveals no palomares p and no friction rub. No murmur heard. Pulmonary/Chest: Effort normal. No respiratory distress. He has no wheezes. He has no rales . Musculoskeletal: He exhibits edema (1+ pitting edema to 3/4 of nick bilaterally). Skin: 12 mm wide x 10 mm high ulcer with smooth rolled borders and pink granulation tissue a t center with oblong area of erythema less than previous. Hospital Outpatient Visit on 06/05/2013 Component Date Value Range Status Gram Stain Result 06/05/2013 Final Value:GRAM STAIN: MANY WBC/HPF RARE EPITHELIAL CELLS/HPF MODERATE GRAM POS COCCI Organism Type 06/05/2013 STAPHYLOCOCCUS AUREUS Final CULTURE BACTERIA WOUND 06/05/2013 Final Value:Quantity (Reportable): MANY Organism Type 06/05/2013 BETA STREP, GROUP B Final CULTURE BACTERIA WOUND 06/05/2013 Final Value: If client is penicillin allergic, and clindamycin or erythromycin is being considered for treatment, notify microbiology for susceptibility testing. Organism will be saved for 7 days. Quantity (Reportable): RARE TSH 06/05/2013 0.59 0.34 - 5.60 uIU/mL Final Testing performed on the [employer] Access Analyzer. HEMOGLOBIN A1C 06/05/2013 6.4* 4.3 - 5.8 % Final Comment: DIABETIC PATIENT RANGES: 6.2-7.0% = Well Controlled 7.0-9.0% = Intermediate >9.0% = Poorly Controlled CRP 06/05/2013 20.8* <8.0 mg/L Final Comment: Levels >8.0 mg/L indicate possible infection, trauma, cardiac infarct or neoplastic proliferation. GLUCOSE 06/05/2013 107 70 - 109 mg/dL Final CALCIUM 06/05/2013 9.3 8.3 - 10.5 mg/dL Final ALK PHOS 06/05/2013 48 40 - 110 IU/L Final AST 06/05/2013 21 10 - 42 IU/L Final ALT 06/05/2013 29 6 - 45 IU/L Final BILIRUBIN TOTAL 06/05/2013 0.5 0.2 - 1.0 mg/dL Final TOTAL PROTEIN 06/05/2013 7.4 6.0 - 7.8 gm/dL Final ALBUMIN 06/05/2013 3.5 3.2 - 5.0 gm/dL Final BUN 06/05/2013 9 7 - 18 mg/dL Final CREA 06/05/2013 0.75 0.60 - 1.30 mg/dL Final Estimated GFR 06/05/2013 >60 >60 mL/min/A Final Comment: For -Americans, please multiply the result by 1.210 This is an estimated GFR and is based on a standard adult body mass (A=1.73m2) and serum creatinine BUN/Creatinine Ratio 06/05/2013 12.0 12 - 20 Final NA 06/05/2013 141 136 - 149 mEq/L Final K 06/05/2013 4.0 3.5 - 5.1 mEq/l Final CL 06/05/2013 104 98 - 109 mEq/l Final CO2 06/05/2013 30 24 - 31 mEq/L Final ANION GAP 06/05/2013 11.0 6.0 - 17.0 Final WBC 06/05/2013 8.7 4.0 - 11.0 K/uL Final RBC 06/05/2013 4.63 4.30 - 5.70 M/uL Final HGB 06/05/2013 12.1* 13.5 - 18.0 gm/dL Final HCT 06/05/2013 39.2* 40.0 - 51.0 % Final MCV 06/05/2013 84.7 83.0 - 101.0 fL Final MCH 06/05/2013 26.0* 28.0 - 35.0 pg Final MCHC 06/05/2013 30.7* 32.0 - 36.0 g/dL Final RDW 06/05/2013 15.3* <15.0 % Final PLT 06/05/2013 288 140 - 440 K/uL Final % Neutrophils 06/05/2013 54.5 45 - 75 % Final % Lymphocytes 06/05/2013 31.4 20 - 45 % Final % Monocytes 06/05/2013 8.1 4 - 12 % Final % Eosinophils 06/05/2013 5.6* 0 - 5 % Final % Basophils 06/05/2013 0.4 0 - 1 % Final Absolute Neutrophils 06/05/2013 4.8 1.5 - 6.6 K/uL Final Absolute Lymphocytes 06/05/2013 2.7 0.6 - 3.2 K/uL Final Absolute Monocytes 06/05/2013 0.7 0.0 - 1.0 K/uL Final Absolute Eosinophils 06/05/2013 0.5* 0.0 - 0.4 K/uL Final Absolute Basophils 06/05/2013 0.0 0.0 - 0.1 K/uL Final Assessment: Stiven was seen today for wound check. Diagnoses and associated orders for this visit: Chronic wound of extremity: Slowly improving. No systemic symptoms. Had elevated CRP, but unremarkable XR three weeks ago. Wound culture with MSSA and GBS. Not characteristic of p yoderma gangrenosum. - Continue clindamycin and ciprofloxacin, may be able to jose e down to keflex given sensit ivities. However given DM2, prefer to continue with current regimen for now Prediabetes: - Educated on DM2, diet, exercise - Ambulatory referral to Diabetic Educatio; Future FU: 1 week for wound check. Saurabh Dudley MD Raul Forte - 2012 1:29 PM PDTPatient is here for a one week follow up for his wound.Electronically ratna d by Raul Foster at 06/12/2013 10:54 PM PDTdocumented in this encounter Plan of [...] [place] | | | | | | [address] | | | | | | | | +--------+---------+ + + + + + +--------+ + + | Name | Type | Priori | Associated Diagnoses | Order Schedule | | | | ty | | | + + +--------+ + + | Ambulatory referral | Outpatient | Routin | Prediabetes | 1 Occurrences | | to Diabetic Educatio | Referral | e | | starting 06/12/2013 | | | | | | until 06/12/2014 | + + +--------+ + + documented as of this encounter Visit Diagnoses + + | Diagnosis | + + | Chronic wound of extremity - Primary Late effect of open wound of extremities without | | mention of tendon injury | + + | Prediabetes Other abnormal glucose | + + documented in this encounter
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
--- OUTSIDE RECORDS SUMMARY | ~2020-07-13 | XMS | Encounter Summary ---
Demographics + + + | Address | [address] | | | [place] [address] | + + + | Home Phone | | + + + | Preferred Language | Unknown | + + + | Marital Status | Single | + + + | Rastafari Affiliation | Unknown | + + + | Race | White | + + + | Ethnic Group | Not or | + + + Author + + + | Author | [facility] | | | and [place] | + + + | Organization | [facility] | | | [...] | | | | | [place] [address] | | + + + + + Care Team Providers + +------+ + | Care Enterprise Services Manager Name | Role | Phone | + +------+ + | Chance Dudley MD | PCP | | + +------+ + Reason for Visit +---------+--------+ + | Reason | Onset | Comments | | | Date | | +---------+--------+ + | Results | 06/16/ | | | | 2020 | | +---------+--------+ + Encounter Details +--------+ + + + + | Date | Type | Department | Care Team | Description | +--------+ + + + + | 06/16/ | Telephone | [facility] | Chance Dudley, | Results | | 2020 | | [facility] [place] | [address] | | | | | [address] | [place], [place] | | | | | [place], [place] | [address] | | | | | [address] | | | | | | [phone] | | | +--------+ + + + [...] Telephone Encounter - Lakia Daugherty LPN - 06/24/2020 2:17 PM PDTLetter with results rigoberto velasco to patient elep amol Encounter - Lakia Daugherty LPN - 06/16/2020 11:07 AM PDTCalled and left a voicemail message for patient to call back. elephone Encounter - Lakia Daugherty LPN - 06/16/2020 8:04 AM PDT----- Message from MD jong Yanez at 06/15/2020 8:35 PM PDT ----- Will you please let Stiven know that his lung function tests are reassuring. No dangerous findi ngs. He has some mild restriction of his lungs which is likely due to his weight. But no sig ns of emphysema or asthma. We will review in more detail at his June appointment. But happy to meet sooner if he has any concerns. Thanks! Saurabh Dudley MD documented in this encounter Plan of Treatment [...]
--- OUTSIDE RECORDS SUMMARY | ~2020-07-13 | XMS | Encounter Summary ---
Demographics + + + | Address | [address] | | | [place] [address] | + + + | Home Phone | | + + + | Preferred Language | Unknown | + + + | Marital Status | Single | + + + | Alevism Affiliation | Unknown | + + + [...] | | | | | [place] [address] | | + + + + + Care Team Providers + +------+ + | Care Metallurgical Inspector Name | Role | Phone | [...] + + | 12/26/ | Emergency | [facility] | Malcom Arriola, | Left-sided chest | | 2019 | | [facility] | MD [address] | pain (Primary Dx); | | | | CENTER [address] | [place], [place] | Gastroesophageal | | | | [place], [place] | [address] | reflux disease, | | | | [address] | | esophagitis presence | | | | [phone] | | not specified | +--------+ + [...] sent through Care Everywhere.GERD, What Is ( Bengali)Chest Pain, Noncardiac (Bengali)documented in this encounter Medications at Time of [...] | 0 | | | | (MYCOSTATIN) [id number] | topically 2 times | | | [...] | | | | | | | ([facility]) | | | | | | + [...] History: Procedure Laterality Date CHOLECYSTECTOMY, LAPAROSCOPIC 09/14/2018 [facility] at time of sleeve gastrectomy ELBOW SURGERY Left 1988 Left elbow-pins put in GASTRIC SURGERY gastric sleeve SHOULDER ARTHROSCOPY Left 10/08/2016 Procedure: Left Shoulder Arthroscopy w/ Labral Repair and Capsular Shift; Surgeon: Candie Murguia DO; Location: [facility] MAIN OR SLEEVE GASTROPLASTY 09/14/2018 [facility] UPPER GASTROINTESTINAL ENDOSCOPY N/A 12/03/2019 Procedure: EGD; Surgeon: Keren Luna MD; Location: [facility] MEDICAL PROCEDURE UNIT CURRENT MEDICATIONS LOST AND FOUND CLERK Home Medications Medication Sig acyclovir (ZOVIRAX) 400 MG tablet take 1 tablet by mouth five times a day AT FIRST SIGN S OF COLD SORE OUTBREAK enoxaparin (LOVENOX) 120 mg/0.8 mL injection Inject 0.8 mLs under the skin every 12 [address]. Multiple Vitamins-Minerals (BARIATRIC MULTIVITAMINS/IRON PO) Take 1 tablet by mouth Marika ly. Chewables. For post-bariatric surgery nystatin (MYCOSTATIN) [id number] UNIT/GM powder Apply 1 Application topically 2 [...] Merged History Encounter Raised by mom in [place], [place]. Father not involved, drug addict. Lives with mom and younger brother. Children: None Schooling: HS graduate, required specialized education plan. A couple courses in college. 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 Employment: Unemployed. Wants to work for "[employer]." He completed the tra ining for it. 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 Neck-supple, [...] by me Rhythm: normal sinus Rate: normal [place]: normal Ectopy: none Conduction: normal ST Segments: [...] Contact information: [address] [place] [id number] Discharge Medication List as of 12/26/2019 [...] + + | Performing | Address | City/State[facility] | Phone Number | | Organization | [...] + | [facility] | [address] | [place] | [phone] | | [facility] | | [address] | | | - LABORATORY | | [...] | | | | | | [employer] | | | | | [...] ST. | [address] | [place], [place] | [phone] | | [facility] | | [address] | | | - LABORATORY | | [...] mL/min/1.73m2 | [facility] | | | [employer] | RATE,ESTIMATED | | MEDICAL | | | | mL/min/1.71b5Gejq than | | CENTER - | | [...] [address] | [place] | [phone] | | [facility] | | [address] | | | - LABORATORY | | [...] ST. | [address] | [place], [place] | [phone] | | [facility] | | [address] | | | - LABORATORY | | [...] | | | | NOREEN JACKSON MD ([id number]) | | | | | | on [...]
--- OUTSIDE RECORDS SUMMARY | ~2020-07-13 | XMS | Encounter Summary ---
Demographics + + + | Address | [address] | | | [place] [address] | + + + | Home Phone | | + + + | Preferred Language | Unknown | + + + | Marital Status | Single | + + + | Hoahaoism Affiliation | Unknown | + + + | Race | White | + + + | Ethnic Group | Not or | + + + Author + + + | Author | [facility] | | | and [place] | + + + | Organization | [facility] | | | and [...] | | | | | [place] [address] | | + + + + + Care Team Providers + +------+ + | Care Plastics Fabricator Name | Role | Phone | + +------+ + | Chance Dudley MD | PCP | | + +------+ + Reason for Visit + +--------+ + | Reason | Onset | Comments | | | Date | | + +--------+ + | Referral | 05/26/ | | | | 2020 | | + +--------+ + Encounter Details +--------+ + + + + | Date | Type | Department | Care Team | Description | +--------+ + + + + | 05/26/ | Telephone | [facility] | Chance Dudley, | Referral | | 2020 | | [facility] | [address] | | | | | [address] | [place], [place] | | | | | [place], [place] | [address] | | | | | [address] | | | | | | [phone] | | | +--------+ + + + [...] Telephone Encounter - Lakia Daugherty LPN - 05/26/2020 3:04 PM PDTReceived message from pulmonology that order for PFT's had been cancelled. She is not sure why. New order done. docu mented in this encounter Plan of [...] [place] | | | | | | [address] | | | | | | | | +--------+---------+ + + + documented as of this encounter Results Pulmonary function test full PFT (05/30/2020 9:00 [...] | 05/30/2020Electronically signed by: Madison Tavarez MD, MD 06/09/2020 10:31 | | [facility] | | |IMPRESSION: Spirometry is consistent with [...] 10:31 AM | | |PDT | | |[facility] | | + + + documented in this encounter Visit Diagnoses + + | Diagnosis | + + | SOB (shortness of breath) - Primary Shortness of breath | + + | Mild intermittent asthma without complication Unspecified asthma | + + documented in this encounter"
--- OUTSIDE RECORDS SUMMARY | ~2020-07-13 | XMS | Encounter Summary ---
Demographics + + + | Address | [address] | | | [place] [address] | + + + | Home Phone | | + + + | Preferred Language | Unknown | + + + | Marital Status | Single | + + + | Scientologist Affiliation | Unknown | + + + [...] [place] | | | | | [place] [address] | | + + + + + Care Team Providers + +------+ + | Care Denture Laboratory Technician Name | Role | Phone | + +------+ + PCP | Unavailable | + +------+ + Encounter Details +--------+ + + + + | Date | Type | Department | Care Team | Description | +--------+ + + + + | 09/27/ | Hospital | [facility] | | | | 2001 | Encounter | [facility] EM[facility] | | | | | | CENTER [address] | | | | | | [place] | | | | | | [address] | | | | | | [phone] | | | +--------+ + + + [...]
--- OUTSIDE RECORDS SUMMARY | ~2020-07-13 | XMS | Encounter Summary ---
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 diabetes mellitus | + + | Elevated blood pressure Elevated blood pressure reading without diagnosis of | | hypertension | + + | Bilateral lower extremity edema Edema | + + | Recurrent herpes labialis Herpes simplex without mention of complication | + + documented in this encounter
--- OUTSIDE RECORDS SUMMARY | ~2020-07-13 | XMS | Encounter Summary ---
Demographics + + + | Address | [address] | | | [place] [address] | + + + | Home Phone [...] Author + + + | Author | [facility] | | | and [place] | + + + | Organization | [facility] | | [...] [place] | | | | | [place] [address] | | + + + + + Care Team Providers + +------+ + | Care Meat Cutting Teacher Name | Role | Phone | + +------+ + | Chance Dudley MD | PCP | | + +------+ + Reason for Referral Evaluate & Treat (Urgent) + + + + + + + | Status | Reason | Specialty | Diagnoses / | Referred By | Referred To | | | | | Procedures | Contact | Contact | + + + + + + + | Authorized | Specialty | Anticoagulati | Diagnoses | [place], | [facility] | | | Services | on | Other acute | Chance Brewster MD | Coumadin | | | Required | | pulmonary | [address] | [address] | | | | | embolism | [address] [place] | [address] | | | | | without | [place] | [place], | | | | | acute cor | [address] | [place] [address] | | | | | pulmonale | Phone: | Phone: | | | | | ([facility]) | [phone] | [phone] | | | | | | Fax: | Fax: | | | | | | [phone] | [phone] | + + + + + + + Reason for Visit + +--------+ + | Reason | Onset | Comments | | | Date | | + +--------+ + | ER Follow-up | 12/12/ | | | | 2020 | | + +--------+ + Encounter Details +--------+ + + + + | Date | Type | Department | Care Team | Description | +--------+ + + + + | 12/12/ | Telephone | [facility] | Chance Dudley, | ER Follow-up | | 2020 | | [facility] | [address] | | | | | [address] | [place] | | | | | [place] | [address] | | | | | [address] | | | | | | [phone] | | | +--------+ + + + [...] this encounter Miscellaneous Notes Telephone Encounter - Vesta Alan RN - 12/12/2019 12:55 PM PSTReceived call from Myranda baldwin with [facility]. There was some questions regarding the dosing of medication. Went over the correct dosing the patient should be taking. Chance verbalized understanding and he is delores myles on getting the medication filled now. had mentioned getting patient on eliquis instead of Warfarin. There is less supriya huma involved. Did talk to Chance at [facility] and he had already cancelled the order for E liquis that he received from the ER provider so he was not able to run a test claim to see c ost. The patient had already left the store by this time. Did let him know patient is being seen here in the office tomorrow. If does decide to go that route we can send in a new script and they can run a test claim. Patient's mother was notified of this. The patient has been scheduled tomorrow with Dr.Stod marshall for INR check. Reiterated the importance of coming in for INR check. If INR/Warfarin ma naged closely, this medication can become extremely dangerous. The mom was able to verbalize understanding and will ensure they are here tomorrow. elephone Encounter - Chance Dudley MD - 12/12/2019 8:36 AM PSTWill you please check in on [facility] and make sure he is using lovenox and warfarin as prescribed. I want him to follow-up with me in clinic tomorrow with a POC INR. I have also placed refe rral to Stefan Corrigan. Explain the importance of having close follow-up with Stefan to make chi re his warfarin is at the right dose. Thanks! Saurabh Dudley MD documented in this e [...] [place] | | | | | | [address] | | | | | | | | +--------+---------+ + + + + + +--------+ + + | Name | Type | Priori | Associated Diagnoses | Order Schedule | | | | ty | | | + + +--------+ + + | * [facility] | Outpatient | AJ | Other acute | Ordered: 12/12/2019 | | Clinic - AMB | Referral | | pulmonary embolism | | | Referral | | | without acute cor | | | | | | pulmonale (HCC) | | + + +--------+ + + documented as of this encounter Visit Diagnoses + + | Diagnosis | + + | Other acute pulmonary embolism without acute cor pulmonale (HCC) - Primary | + + documented in this encounter"
--- OUTSIDE RECORDS SUMMARY | ~2020-07-13 | XMS | Encounter Summary ---
Demographics + + + | Address | [address] | | | [place] [address] | + + + | Home Phone | | + + + | Preferred Language | Unknown | + + + | Marital Status | Single | + + + | Buddhist Affiliation | Unknown | + + + | Race | White | + + + | Ethnic Group | Not or | + + + Author + + + | Author | [facility] | | | and [place] | + + + | Organization | [facility] | | | and [place] | + + + | Address | Unknown | + + + | Phone | Unavailable | + + + Support + + + + + | Name | Relationship | Address | Phone | + + + + + | Mabel Eisenberg | ECON | [address] | | | | | [place] [address] | | + + + + + Care Team Providers + +------+ + | Care Master Technician Name | Role | Phone | + +------+ + | Chance Dudley MD | PCP | | + +------+ + Encounter Details +--------+ + + + + | Date | Type | Department | Care Team | Description | +--------+ + + + + | 07/08/ | Orders Only | [facility] | Chance Dudley, | Microcytic anemia | | 2018 | | [facility] | [address] | | | | | [address] | [place] | | | | | [place] | [address] | | | | | [address] | | | | | | [phone] | | | +--------+ + + + [...] [place] | | | | | | [id number] | | | | | | | | +--------+---------+ + + + documented as of this encounter Results Folate (07/05/2019 12:36 PM PDT) + +-------+ + + + | Component | Value | Ref Range | Performed | Pathologist | | | | | At | Signature | + +-------+ + + + | FOLATE | 19.2 | >5.4 ng/mL | [facility] | | | | | [...] + | [facility] | [address] | [place] | [phone] | | [facility] | | [address] | | | - LABORATORY | | | | + + + + + Vitamin B-12 (07/05/2019 12:36 PM PDT) + + + + + + | Component | Value | Ref Range | Performed | Pathologist | | | | | At | Signature | + + + + + + | VITAMIN | 691 (H)Comment: | 156 - 672 pg/mL | [facility] | | | B-12 | DEFICIENT: | | [facility] | | | | <145 | | MEDICAL | | | | pg/mLINDETERMINATE: | | CENTER - | | | | 145-180 pg/mL | | LABORATORY | | + + + + + + + + | Specimen | + + | Blood | + + + + + + + | Performing | Address | City/State/Zipcode | Phone Number | | Organization | | | | + + + + + | [facility] | [address] | [place] | [phone] | | [facility] | | [address] | | | - LABORATORY | | | | + + + + + Ferritin (07/05/2019 12:36 PM PDT) + +-------+ + + + | Component | Value | Ref Range | Performed | Pathologist | | | | | At | Signature | + +-------+ + + + | FERRITIN | 277 | 11 - 307 ng/mL | [facility] | | | | | [...] | [address] | [place] | [phone] | | [facility] | | [address] | | | - LABORATORY | | | | + + + + + Iron and Transferrin (07/05/2019 12:36 PM PDT) + + + + + + | Component | Value | Ref Range | Performed | Pathologist | | | | | At | Signature | + + + + + + | Iron | 51 (L) | 65 - 175 ug/dL | [facility] | | | | | | [facility] | | | | | [facility] | | | | [facility] | | | | | | LABORATORY | | + + + + + + | TRANSFERRIN | 238.0 | 202.0 - 364.0 | [facility] | | | | | mg/dL | [facility] | | | | | [facility] | | | | | | [facility] | | | | | | LABORATORY | | + + + + + + | TIBC | 333 | 235 - 425 ug/dL | [facility] | | | | | | [facility] | | | | | [facility] | | | | | [facility] | | | | | | LABORATORY | | + + + + + + | % | 15.3 (L) | 20.0 - 55.0 % | [facility] | | | [facility] | | | [facility] | | | | | [facility] | | | | | | [facility] | | | | | | LABORATORY | | + + + + + + + + | Specimen | + + | Blood | + + + + + + + | Performing | Address | City/State/Zipcode | Phone Number | | Organization | | | | + + + + + | [facility] | [address] | [place] | [phone] | | [facility] | | [address] | | | [facility] | | | | + + + + + Hemoglobin and Hematocrit (07/05/2019 12:36 PM PDT) + +-------+ + + + | Component | Value | Ref Range | Performed | Pathologist | | | | | At | Signature | + +-------+ + + + | Hematocrit | 44.0 | 40.0 - 51.0 % | [facility] | | | | | | [facility] | | | | | [facility] | | | | | | [facility] | | | | | | LABORATORY | | + +-------+ + + + | Hemoglobin | 14.0 | 13.5 - 18.0 | [facility] | | | | | g/dL | [facility] | | | | | | [facility] | | | | | | [facility] | | | | | | LABORATORY | | + +-------+ + + + + + | Specimen | + + | Blood | + + + + + + + | Performing | Address | City/State/Zipcode | Phone Number | | Organization | | | | + + + + + | [facility] | [address] | [place] | [phone] | | [facility] | | [address] | | | [place] | | | | + + + + + documented in this encounter Visit Diagnoses + + | Diagnosis | + + | Microcytic anemia Iron deficiency anemia, unspecified | + + documented in this encounter"
--- OUTSIDE RECORDS SUMMARY | ~2020-07-13 | XMS | Encounter Summary ---
Demographics + + + | Address | [address] | | | [place] [address] | + + + | Home Phone | | + + + | Preferred Language | Unknown | + + + | Marital Status | Single | + + + | Jewish Affiliation | Unknown | + + + | Race | White | + + + | Ethnic Group | Not or | + + + Author + + + | Author | [facility] | | | and [place] | + + + | Organization | [facility] | | | and [place] | + + + | Address | Unknown | + + + | Phone | Unavailable | + + + Support + + + + + | Name | Relationship | Address | Phone | + + + + + | Mabel Eisenberg | ECON | [address] | | | | | [place] [address] | | + + + + + Care Team Providers + +------+ + | Care Detention Deputy Name | Role | Phone | + +------+ + | Cash Dudley MD | PCP | | + +------+ + Reason for Visit + + + | Reason | Comments | + + + | Back Pain | | + + + | Fall | | + + + Encounter Details +--------+ + + + + | Date | Type | Department | Care Team | Description | +--------+ + + + + | 02/18/ | Emergency | [facility] | Eric Almazan MD | Contusion of | | 2019 | | [facility] | [address] | thoracic wall, | | | | CENTER [address] | [place], [place] | unspecified area of | | | | [place], [place] | [address] | thoracic wall, | | | | [address] | | initial encounter | | | | [phone] | | (Primary Dx) | +--------+ + + + + Social [...] + + + | Blood Pressure | 115/70 | 02/19/2020 6:43 PM | | | | | PDT | | + + + + + | Pulse | 57 | 02/19/2020 6:43 PM | | | | | PDT | | + + + + + | Temperature | 36.6 C (97.8 F) | 02/19/2020 3:36 PM | | | | | PDT | | + + + + + | Respiratory Rate | 16 | 02/19/2020 3:36 PM | | | | | PDT | | + + + + + | Oxygen Saturation | 100% | 02/19/2020 6:43 PM | | | | | PDT | | + + + + + | Inhaled Oxygen | - | - | | | Concentration | | | | + + + + + | Weight | 122.5 kg (270 lb) | 02/19/2020 3:36 PM | | | | | PDT | | + + + + + | Height | 188 cm (6' 2") | 02/19/2020 3:36 PM | | | | | PDT | | + + + + + | Body Mass Index | 34.67 | 02/19/2020 3:36 PM | | | | | PDT [...] as of this encounter Discharge Instructions Instructions Eric Almazan MD - 02/19/2020Use wsrk-zid-paplwzv medications as needed. Foll ow-up with your primary care provider as needed. Return for worsening symptoms. AttachmentsThe following attachments cannot be sent through Care Everywhere.Bruises (Contus ions) (Martiniquais)Soft Tissue Contusion (Martiniquais)documented in this encounter Medications at Time of [...] + + + +---------+ + + | albuterol 90 | Inhale 2 puffs into | 1 | 0 | 01/07/20 | | | mcg/puff inhaler | the lungs every 4 | Inhaler | | 20 | | | | hours as needed for | | | | | | | Wheezing or | | | | | | | Shortness of Breath. | | | | | | | Use with spacer | | | | | | | device. | | | | | + + [...] | 0 | | | | (MYCOSTATIN) [id number] | topically 2 times | | | [...] + + + +---------+ + + | cyclobenzaprine | Take 1 tablet by | 20 | 0 | 02/19/20 | | | (FLEXERIL) 10 mg | mouth 3 times daily | tablet | | 20 | 0 | | tablet | as needed for Muscle | | | | | | | spasms for up to 14 | | | | | | | days. | | | | | + [...] | | | | | | | (HCC) | | | | | | + + + +---------+ + + documented as of this encounter ED Notes Fiorella Kelly RN - 02/19/2020 3:38 PM PDTPt Arrives via ambulance, states he was wa lking backwards with a wheelbarrow full of firewood and fell onto a car frame in the yard. U nsure if he had LOC. Denies head/neck pain. CMS intact. PT able to transfer self from EMS gu rney to ER bed. ric Jurado MD - 02/19/2020 3:36 PM PDTFormatting of this note might be different from the o riginal. [facility] Emergency Department Encounter Note [address] [place] [id number] PCP:Cash Dudley MD [phone] CHIEF COMPLAINT: Chief Complaint Patient presents with Back Pain Fall ED Room: ED14/ED14 HPI Stiven Davila is a 34 y.o. male who presents to the Emergency Department with back pain and flank pain. Patient states that he was using a wheelbarrow going backwards when he fell. He has significant left flank pain has pain with inspiration. He denies any blood thinners. He h as does have a history of PE but is not anticoagulated. He has pleuritic-like pain. No fev ers or chills. Was asymptomatic prior to the fall. No numbness or tingling. Feels lighthe aded. No headache, no neck pain. PAST MEDICAL & SURGICAL HISTORY Past Medical History: Diagnosis Date Acute [...] Procedure Laterality Date CHOLECYSTECTOMY, LAPAROSCOPIC 09/14/2018 [facility] at time of sleeve gastrectomy ELBOW SURGERY Left 1988 Left elbow-pins put in GASTRIC SURGERY gastric sleeve SHOULDER ARTHROSCOPY Left 10/08/2016 Procedure: Left Shoulder Arthroscopy w/ Labral Repair and Capsular Shift; Surgeon: Candie Murguia DO; Location: [facility] MAIN OR SLEEVE GASTROPLASTY 09/14/2018 [facility] UPPER GASTROINTESTINAL ENDOSCOPY N/A 12/03/2019 Procedure: EGD; Surgeon: Keren Luna MD; Location: [facility] MEDICAL PROCEDURE UNIT CURRENT MEDICATIONS ENERGY OPERATIONS 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 Use with spacer device. Multiple Vitamins-Minerals (BARIATRIC MULTIVITAMINS/IRON PO) Take 1 tablet by mouth Marika ly. Chewables. For post-bariatric surgery nystatin (MYCOSTATIN) [id number] UNIT/GM powder Apply 1 Application topically 2 times daily . ondansetron (ZOFRAN ODT) 4 mg disintegrating tablet Take 1 tablet by mouth every 8 hour s as needed for Nausea or Vomiting. pantoprazole (PROTONIX) 40 mg tablet Take 1 tablet by mouth 2 times daily (before meals ) for 7 days, THEN 1 tablet every morning (before breakfast) for 90 days. sucralfate (CARAFATE) 1 g tablet Take 1 tablet by mouth 2 times daily. testosterone 12.5 mg/1.25 g actuation (1%) gel Apply 4 Act topically Daily. warfarin (COUMADIN) 5 mg tablet Take 2 tablets by mouth Daily. (Patient not taking: Rep orted on 01/07/2020) ALLERGIES Allergies Allergen Reactions Cephalexin Shortness Of Breath and Vertigo FAMILY AND SOCIAL HISTORY Family History Problem Relation Age of Onset Substance abuse Father Drug addict, history not well known Diabetes Other Great grandparents on mom's side Colon cancer Neg Hx Prostate cancer Neg Hx Heart attack Neg Hx Stroke Neg Hx Deep vein thrombosis Neg Hx Clotting disorder Neg Hx Social History Socioeconomic History Marital [...] Merged History Encounter Raised by mom in [place], [place]. Father not involved, drug addict. Lives with mom and younger brother. Children: None Schooling: HS graduate, required specialized education plan. A couple courses in college. 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 Employment: Unemployed. Wants to work for "[employer]." He completed the [employer] ining for it. He first needs to get in better shape. REVIEW OF SYSTEMS As in history of present illness. A 10 system review was otherwise negative. PHYSICAL EXAM VITAL SIGNS: (first vital signs):Temp: 36.6 C (97.8 F) Pulse: 65 Resp: 16 SpO2: 100 % B P: 128/75 Body mass index is 34.67 kg/m. Constitutional: male patient, pleasant male no acute distress HEENT: Atraumatic, PERRL, Oropharynx benign. Neck: Supple with full range of motion. Respiratory: Good air movement bilaterally. No wheezes, No, rales. Cardiovascular: Normal S1 S2 Abdomen: Left CVA tenderness Back: Left-sided back pain at the level of T8 that wraps around the back, no midline tender ness, no step-offs, no ecchymosis or erythema Extremities: Nontender. Skin: Warm, Dry, No rashes Neurologic: Alert & oriented. Psychiatric: Normal mood, affect and judgement. EKG 12-lead EKG shows LABS Results for orders placed or performed during the hospital encounter of 02/19/20 CBC with Differential Result Value Ref Range WBC 8.3 4.0 - 11.0 K/uL RBC 4.30 4.30 - 5.70 M/uL Hemoglobin 12.7 (L) 13.5 - 18.0 g/dL Hematocrit 39.3 (L) 40.0 - 51.0 % MCV 91.4 83.0 - 101.0 fL MCH 29.5 28.0 - 35.0 pg MCHC 32.3 32.0 - 36.0 g/dL RDW-CV 13.1 <15.0 % RDW-SD 43.9 35.1 - 46.3 fL Platelet Count 225 140 - 440 K/uL MPV 9.5 6.5 - 12.4 fL % Neutrophils 60.1 45.0 - 82.0 % % Lymphocytes 29.1 20.0 - 45.0 % % Monocytes 5.9 4.0 - 12.0 % % Eosinophils 4.2 0.0 - 5.0 % % Basophils 0.5 0.0 - 1.0 % % Immature Granulocytes 0.2 0.0 - 0.4 % Absolute Neutrophils 4.97 1.80 - 8.50 K/uL Absolute Lymphocytes 2.41 0.60 - 3.20 K/uL Absolute Monocytes 0.49 0.00 - 1.00 K/uL Absolute Eosinophils 0.35 0.00 - 0.40 K/uL Absolute Basophils 0.04 0.00 - 0.10 K/uL Absolute Immature Granulocytes 0.02 0.00 - 0.03 K/uL % nRBC 0 0 - 2 per 100 WBCs Absolute nRBC 0.00 0.00 - 0.01 K/uL Comprehensive Metabolic Panel Result Value Ref Range Na 144 136 - 145 mmol/L K 3.5 3.4 - 5.1 mmol/L Cl 107 98 - 107 mmol/L CO2 28 20 - 31 mmol/L Anion Gap 9 3 - 16 mmol/L Glucose 105 60 - 106 mg/dL BUN 11 9 - 23 mg/dL Creatinine 0.77 0.70 - 1.30 mg/dL eGFR if not >60 >=60 mL/min/1.73m2 Calcium 9.8 8.7 - 10.4 mg/dL Albumin 4.7 3.2 - 4.8 g/dL Bilirubin Total 0.4 0.3 - 1.2 mg/dL Total Protein 7.5 5.7 - 8.2 g/dL AST 18 0 - 34 U/L ALT 15 10 - 49 U/L Alkaline Phosphatase 48 46 - 116 U/L Globulin 2.8 2.1 - 3.8 g/dL Albumin/Globulin Ratio 1.7 0.8 - 1.9 BUN/Creatinine Ratio 14.3 IMAGING STUDIES (X-Rays interpreted by ED Physician) TECHNIQUE: After administration of 100 mL Omnipaque 350 intravenously, axial CT imaging was obtained through the chest, abdomen, and pelvis with coronal and sagittal reformats. At least one of the following CT dose optimization techniques were used: Automated exposure control; Adjustment of mA and/or kV according to patient size; Use of iterative reconstruction technique. CLINICAL INFORMATION: Left flank pain concerning for splenic injury and rib injury FALL COMPARISON: CT dated 12/26/2019, 12/02/2019 and 05/27/2018. FINDINGS: BONES: No acute osseous abnormality. Chronic sternal fracture deformity. Chronic anterior lateral left 3rd rib fracture deformity. No acute rib fracture. No concerning osteoblastic or osteolytic lesion. Chronic small lucent lesion at the left scapular body measuring up to 9 mm. CHEST: Chest Wall: No supraclavicular or axillary lymphadenopathy. Mild gynecomastia. Mediastinum and regis: No lymphadenopathy. Unchanged appearance of multiple calcified mediastinal and tiny left hilar lymph nodes compatible with old granulomatous disease. Heart and pericardium: Heart size is normal. No pericardial effusion. Vessels: Normal caliber of the thoracic aorta. Lungs: No airspace consolidation. No significant pulmonary nodule. Large airways: Unremarkable. Pleura: No pleural effusion or pneumothorax. ABDOMEN/PELVIS: Abdominal wall: No inguinal lymphadenopathy. Liver: No mass lesion. Gallbladder: Surgically absent. Pancreas: No mass or ductal dilatation. Spleen: Unremarkable. Adrenals: No nodule. Kidneys: No nephrolithiasis or hydronephrosis. No evidence of a soft tissue mass. Ureters: No hydroureter. Urinary Bladder: Partially distended without focal wall thickening. Reproductive organs: No pelvic mass. Bowel: Multiple colonic diverticula without pericolonic inflammation. The appendix is not identified and there is no evidence of appendicitis. No obstruction or wall thickening. Gastric sleeve changes. Peritoneum/retroperitoneum: No ascites, free air, or lymphadenopathy. Vessels: Normal caliber of the abdominal aorta. IMPRESSION: No acute abnormality of the chest, abdomen, or pelvis. No rib fracture or splenic injury. Diverticulosis without diverticulitis. Dictated and Signed by: Randy Urena MD Electronically signed: 02/19/2020 5:21 PM ED COURSE & MEDICAL DECISION MAKING Pertinent Labs & Imaging studies were reviewed along with EMS notes and [facility] record s if applicable. (See chart for details) Medications and Allergy list reviewed. Nurses note and old records were reviewed The patient was seen and examined, Patient is a 34-year-old male who presents with left flank pain. Patient had a ground-leve l fall. He complains of pain with inspiration. Also has pain right at the site of the sple en. Given the trauma and significant amount of pain a CT scan of the chest abdomen pelvis i s obtained. There is no evidence of a fracture. Spleen appeared intact. There is no free fluid. Given unremarkable work-up he most likely just has a contusion. He was given Flexer il and Toradol with some improvement in symptoms. He will be discharged with Flexeril and e ncouraged to take rxar-fcb-fxvmaay medications for the pain. Asked him to return for worsen ing symptoms. Last Set of Vital Signs: Temp: 36.6 C (97.8 F) Pulse: 57 Resp: 16 SpO2: 100 % BP: 115/7 0 FINAL IMPRESSION ICD-10-CM ICD-9-CM 1. Contusion of thoracic wall, unspecified area of thoracic wall, initial encounterAcute S2 0.20XA 922.1 Follow-up Information Cash Dudley MD. Specialty: Family Medicine Why: As needed Contact information: [address] [place] [id number] [facility]. Specialty: Emergency Medicine Why: If symptoms worsen Contact information: [address] [place] [phone] Discharge Medication List as of 02/19/2020 6:48 PM START taking these medications Details cyclobenzaprine (FLEXERIL) 10 mg tablet Take 1 tablet by mouth 3 times daily as needed for Muscle spasms for up to 14 days.Disp-20 tablet, R-0, Normal Eric Almazan MD 02/19/202 documented in this encou nter Plan of Treatment +--------+---------+ + + + | Date | Type | Specialty | Care Team | Description | +--------+---------+ + + + | 07/22/ Office | Family Medicine | Cash Dudley, | | | 2019 | Visit | | MD [address] | | | | | | [place] | | | | | | [address] | | | | | | | | +--------+---------+ + + + + +------+--------+ + + | Name | Type | Priori | Associated Diagnoses | Date/Time | | | | ty | | | + +------+--------+ + + | ED INFORMATION | DARYL | Routin | | 02/19/2020 3:34 PM | | EXCHANGE | | e | | PDT | + +------+--------+ + + documented as of this encounter Procedures + +--------+ + + + | Procedure Name | Priori | Date/Time | Associated Diagnosis | Comments | | | ty | | | | + +--------+ + + + | CT CHEST ABDOMEN | STAT | 02/19/2020 | | Results for this | | PELVIS W CONTRAST | | 4:55 PM | | procedure are in the | | | | PDT | | results section. | + +--------+ + + + | CBC WITH | STAT | 02/19/2020 | | Results for this | | DIFFERENTIAL | | 4:40 PM | | procedure are in the | | | | PDT | | results section. | + +--------+ + + + | COMPREHENSIVE | STAT | 02/19/2020 | | Results for this | | METABOLIC PANEL | | 4:40 PM | | procedure are in the | | | | PDT | | results section. | + +--------+ + + + | ED INFORMATION | Routin | 02/19/2020 | | | | EXCHANGE | e | 3:34 PM | | | | | | PDT | | | + +--------+ + + + +---+--------+ | | | | | Proced | | | ure | | | Note - | | | Rudolph, | | | Lab In | | | | | | Hlseve | | | n - | | | 02/18/ | | | 2019 | | | 3:35 | | | PM PDT | | | | | | Format | | | ting | | | of | | | this | | | note | | | might | | | be | | | differ | | | ent | | | from | | | the | | | origin | | | al.COL | | | LECTIV | | | E?NOTI | | | FICATI | | | ON?/ | | | | | | 0 | | | 15:33? | | | LESTER, | | | STIVEN | | | L?MRN: | | | | | | [id number] | | | [id number] | | | riteri | | | a Met | | | 4 | | | visits | | | in | | | 60Secu | | | rity | | | and | | | Safety | | | No | | | recent | | | | | | Securi | | | ty | | | Events | | | | | | curren | | | tly on | | | | | | fileED | | | Care | | | Guidel | | | inesTh | | | ere | | | are | | | curren | | | tly no | | | ED | | | Care | | | Guidel | | | noble | | | for | | | this | | | patien | | | t. | | | Please | | | check | | | your | | | facili | | | ty's | | | medica | | | l | | | record | | | s | | | system | | | .Presc | | | riptio | | | n Drug | | | | | | Report | | | (12 | | | Mo.)PD | | | MP | | | query | | | found | | | no | | | report | | | .E.D. | | | Visit | | | Count | | | (12 | | | mo.)Fa | | | cility | | | | | | Visits | | | Low | | | Acuity | | | | | | Provid | | | ence | | | [facility] | | | [facility] | | | Medica | | | l | | | Center | | | 7 0 | | | Total | | | 7 0 | | | Note: | | | Visits | | | | | | indica | | | te | | | total | | | known | | | visits | | | . | | | Medica | | | id Low | | | | | | Acuity | | | Dx | | | are | | | the | | | number | | | of | | | primar | | | y | | | diagno | | | ses on | | | the | | | Medica | | | id's | | | Low | | | Acuity | | | dx | | | list. | | | | | | Recent | | | | | | Emerge | | | ncy | | | Depart | | | ment | | | Visit | | | [facility] | | | yDate | | | Facili | | | ty | | | City | | | State | | | Type | | | Diagno | | | ses or | | | Chief | | | | | | Compla | | | int | | | Mar | | | 24, | | | 2020 | | | Provid | | | ence | | | [facility] | [place] | | | [place] | | | Emerge | | | ncy | | | Mar | | | 20, | | | 2020 | | | Provid | | | ence | | | [facility] | | [place] | | | [place] | | | Emerge | | | ncy | | | Arm | | | Pain | | | | | | Syncop | | | e and | | | collap | | | se | | | Other | | | chest | | | pain | | | Feb | | | 10, | | | 2020 | | | Provid | | | ence | | | [facility] | [place] | | | [place] | | | Emerge | | | ncy | | | | | | Diffic | | | ulty | | | Breath | | | ing | | | | | | Shortn | | | ess of | | | | | | breath | | | | | | Modera | | | te | | | persis | | | tent | | | asthma | | | with | | | (acute | | | ) | | | exacer | | | bation | | | Dominick | | | 29, | | | 2020 | | | Provid | | | ence | | | [facility] | [facility] | [place] | | | [place] | | | Emerge | | | ncy | | | Chest | | | Pain | | | | | | Swallo | | | wing | | | Diffic | | | ulty | | | | | | Shortn | | | ess of | | | | | | Breath | | | | | | Chest | | | pain, | | | unspec | | | ified | | | | | | Gastro | | | -esoph | | | ageal | | | reflux | | | | | | diseas | | | e | | | withou | | | t | | | esopha | | | gitis | | | Dominick | | | 14, | | | 2020 | | | Provid | | | ence | | | [facility] | [facility] | [place] | | | [place] | | | Emerge | | | ncy | | | | | | troubl | | | e | | | breath | | | ing | | | | | | Abnorm | | | al Lab | | | | | | Other | | | pulmon | | | gisell | | | emboli | | | sm | | | withou | | | t | | | acute | | | cor | | | pulmon | | | sakshi | | | Dominick 5, | | | 2020 | | | Provid | | | ence | | | [facility] | [facility] [place] | | | [place] | | | Emerge | | | ncy | | | | | | Emesis | | | GI | | | | | | Bleedi | | | ng | | | Chest | | | Pain | | | | | | Gastro | | | -esoph | | | ageal | | | lacera | | | tion-h | | | emorrh | | | age | | | syndro | | | me | | | Aug 3, | | | 2019 | | | Provid | | | ence | | | [facility] | [place] | | | [place] | | | Emerge | | | ncy | | | Chest | | | Pain | | | Rib | | | Pain | | | | | | Shortn | | | ess of | | | | | | Breath | | | | | | Multip | | | le | | | fractu | | | res of | | | ribs, | | | | | | unspec | | | ified | | | side, | | | subseq | | | uent | | | enco | | | | | | Other | | | chest | | | pain | | | | | | Shortn | | | ess of | | | | | | breath | | | | | | Recent | | | | | | Inpati | | | ent | | | Visit | | | [facility] | | | yDate | | | Facili | | | ty | | | City | | | State | | | Type | | | Diagno | | | ses or | | | Chief | | | | | | Compla | | | int | | | Dominick 5, | | | 2020 | | | Provid | | | ence | | | [facility] | [facility] | [place] | | | [place] | | | Medica | | | l | | | Surgic | | | al | | | Gastro | | | -esoph | | | ageal | | | lacera | | | tion-h | | | emorrh | | | age | | | syndro | | | me | | | Develo | | | pmenta | | | l | | | disord | | | er of | | | schola | | | stic | | | skills | | | , | | | unspec | | | ified | | | | | | Klinef | | | elter | | | syndro | | | me, | | | unspec | | | ified | | | | | | Bariat | | | golden | | | surger | | | y | | | status | | | | | | Hemate | | | mesis | | | Gordon | | | 28, | | | 2019 | | | Provid | | | ence | | | [facility] | [facility] | [place] | | | [place] | | | Surgic | | | al | | | Servic | | | es | | | Contus | | | ion of | | | | | | scalp, | | | | | | initia | | | l | | | encoun | | | ter | | | | | | Abrasi | | | on of | | | scalp, | | | | | | initia | | | l | | | encoun | | | ter | | | | | | Fractu | | | re of | | | body | | | of | | | sternu | | | m, | | | initia | | | l | | | encoun | | | ter | | | for | | | closed | | | fra | | | | | | Multip | | | le | | | fractu | | | res of | | | ribs, | | | | | | bilate | | | ral, | | | initia | | | l | | | encoun | | | ter | | | for | | | | | | Person | | | | | | injure | | | d in | | | nate | | | ion | | | betwee | | | n | | | other | | | specif | | | ied | | | motor | | | veh | | | | | | Fractu | | | re of | | | body | | | of | | | sternu | | | m, | | | subseq | | | uent | | | encoun | | | ter | | | for | | | fractu | | | r | | | Care | | | TeamPr | | | ovider | | | | | | Specia | | | lty | | | Phone | | | Fax | | | Servic | | | e | | | Dates | | | STODDA | | | RD, | | | CASH , | | | M.D. | | | Family | | | | | | Medici | | | ne | | | (509) | | | [phone] | | | 22 | | | [phone] | | | [phone] | | | 75 | | | Curren | | | t | | | Cash R | | | | | | Stodda | | | rd | | | Primar | | | y Care | | | (509) | | | | | | [phone] | | | 00 | | | (509) | | | [phone] | | | 75 | | | Curren | | | t | | | Collec | | | tive | | | Portal | | | This | | | patien | | | t has | | | regist | | | ered | | | at the | | | | | | Provid | | | ence | | | [facility] | | | [facility] | | | Medica | | | l | | | Center | | | | | | Emerge | | | ncy | | | Depart | | | ment | | | For | | | more | | | inform | | | ation | | | visit: | | | | | | https: | | | //prov | | | .colle | | | ctivem | | | edical | | | .com/n | | | otify/ | | | [phone] | | | [phone] | | | [phone] | | | [phone] | | | [email or web address] | | | [phone] | | | | | | PLEASE | | | NOTE: | | | 1. | | | Any | | | care | | | recomm | | | endati | | | ons | | | and | | | other | | | clinic | | | al | | | inform | | | ation | | | are | | | provid | | | ed as | | | guidel | | | noble | | | or for | | | | | | histor | | | ical | | | purpos | | | es | | | only, | | | and | | | provid | | | ers | | | should | | | | | | exerci | | | se | | | their | | | own | | | clinic | | | al | | | judgme | | | nt | | | when | | | provid | | | ing | | | care. | | | 2. | | | You | | | may | | | only | | | use | | | this | | | inform | | | ation | | | for | | | purpos | | | es of | | | treatm | | | ent, | | | paymen | | | t or | | | health | | | care | | | operat | | | ions | | | activi | | | ties, | | | and | | | subjec | | | t to | | | the | | | limita | | | tions | | | of | | | applic | | | able | | | Collec | | | tive | | | Polici | | | es. | | | 3. | | | You | | | should | | | | | | consul | | | t | | | direct | | | ly | | | with | | | the | | | organi | | | zation | | | that | | | provid | | | ed a | | | care | | | guidel | | | ine or | | | other | | | | | | clinic | | | al | | | histor | | | y with | | | any | | | questi | | | ons | | | about | | | additi | | | onal | | | inform | | | ation | | | or | | | accura | | | cy or | | | comple | | | teness | | | of | | | inform | | | ation | | | provid | | | ed.? | | | 2020 | | | Collec | | | tive | | | Medica | | | l | | | Techn[employer] | | | logies | | | , Inc[employer] | | | - | | | [email or web address] | | | llecti | | | vemedi | | | [email or web address] | | | m | +---+--------+ documented in this encounter Results CT Chest Abdomen Pelvis w Contrast (02/19/2020 4:55 PM PDT) + + | Specimen | + + | | + + + + | Addenda | + + | Addendum by Randy Urena MD on 02/19/2020 6:58 PM ADDENDUM: Chronic | | degenerative disc disease at L5-S1 with posterior disc protrusion with at least | | moderate chronic spinal canal stenosis. Dictated and Signed by: Randy Urena MD | | Electronically signed: 02/19/2020 6:55 PM | + + + + + | Impressions | Performed At | + + + | No acute abnormality of the chest, abdomen, or pelvis. No rib | [facility] | | fracture or splenic injury. Diverticulosis without | | | diverticulitis. Dictated and Signed by: Randy Urena MD | | | Electronically signed: 02/19/2020 5:21 PM | | + + + + + + | Narrative | Performed At | + + + | TECHNIQUE: After administration of 100 mL Omnipaque 350 | [facility] | | intravenously, axial CT imaging was obtained through the chest, | | | abdomen, and pelvis with coronal and sagittal reformats. At least | | | one of the following CT dose optimization techniques were used: | | | Automated exposure control; Adjustment of mA and/or kV according to | | | patient size; Use of iterative reconstruction technique. CLINICAL | | | INFORMATION: Left flank pain concerning for splenic injury and rib | | | injury FALL COMPARISON: CT dated 12/26/2019, 12/02/2019 and | | | 05/27/2018. FINDINGS: BONES: No acute osseous abnormality. | | | Chronic sternal fracture deformity. Chronic anterior lateral left 3rd | | | rib fracture deformity. No acute rib fracture. No concerning | | | osteoblastic or osteolytic lesion. Chronic small lucent lesion at the | | | left scapular body measuring up to 9 mm. CHEST: Chest Wall: No | | | supraclavicular or axillary lymphadenopathy. Mild gynecomastia. | | | Mediastinum and regis: No lymphadenopathy. Unchanged appearance of | | | multiple calcified mediastinal and tiny left hilar lymph nodes | | | compatible with old granulomatous disease. Heart and pericardium: | | | Heart size is normal. No pericardial effusion. Vessels: Normal | | | caliber of the thoracic aorta. Lungs: No airspace consolidation. | | | No significant pulmonary nodule. Large airways: Unremarkable. | | | Pleura: No pleural effusion or pneumothorax. ABDOMEN/PELVIS: | | | Abdominal wall: No inguinal lymphadenopathy. Liver: No mass | | | lesion. Gallbladder: Surgically absent. Pancreas: No mass or ductal | | | dilatation. Spleen: Unremarkable. Adrenals: No nodule. Kidneys: | | | No nephrolithiasis or hydronephrosis. No evidence of a soft tissue | | | mass. Ureters: No hydroureter. Urinary Bladder: Partially distended | | | without focal wall thickening. Reproductive organs: No pelvic mass. | | | Bowel: Multiple colonic diverticula without pericolonic | | | inflammation. The appendix is not identified and there is no evidence | | | of appendicitis. No obstruction or wall thickening. Gastric sleeve | | | changes. Peritoneum/retroperitoneum: No ascites, free air, or | | | lymphadenopathy. Vessels: Normal caliber of the abdominal aorta. | | | | | + + + + + | Procedure Note | + + | Rudolph, Rad Results In 02/19/2020 5:24 PM PDT TECHNIQUE: After administration of 100 | | mL Omnipaque 350 intravenously, axial CTimaging was obtained through the chest, abdomen, | | and pelvis with coronal andsagittal reformats.At least one of the following CT dose | | optimization techniques wereused: Automated exposure control; Adjustment of mA and/or kV | | accordingto patient size; Use of iterative reconstruction technique.CLINICAL | | INFORMATION: Left flank pain concerning for splenic injury and ribinjuryFALLCOMPARISON: | | CT dated 12/26/2019, 12/02/2019 and 05/27/2018.FINDINGS:BONES: No acute osseous abnormality. | | Chronic sternal fracture deformity. Chronicanterior lateral left 3rd rib fracture | | deformity. No acute rib fracture. Noconcerning osteoblastic or osteolytic lesion. | | Chronic small lucent lesion at theleft scapular body measuring up to 9 mm.CHEST:Chest | | Wall: No supraclavicular or axillary lymphadenopathy. Mild gynecomastia.Mediastinum and | | regis: No lymphadenopathy. Unchanged appearance of multiplecalcified mediastinal and tiny | | left hilar lymph nodes compatible with oldgranulomatous disease.Heart and pericardium: | | Heart size is normal. No pericardial effusion. Vessels: Normal caliber of the thoracic | | aorta. Lungs: No airspace consolidation. No significant pulmonary nodule.Large airways: | | Unremarkable.Pleura: No pleural effusion or pneumothorax. ABDOMEN/PELVIS:Abdominal wall: | | No inguinal lymphadenopathy.Liver: No mass lesion.Gallbladder: Surgically | | absent.Pancreas: No mass or ductal dilatation.Spleen: Unremarkable.Adrenals: No | | nodule.Kidneys: No nephrolithiasis or hydronephrosis. No evidence of a soft | | tissuemass.Ureters: No hydroureter. Urinary Bladder: Partially distended without focal | | wall thickening.Reproductive organs: No pelvic mass.Bowel: Multiple colonic diverticula | | without pericolonic inflammation. Theappendix is not identified and there is no evidence | | of appendicitis. Noobstruction or wall thickening. Gastric sleeve | | changes.Peritoneum/retroperitoneum: No ascites, free air, or lymphadenopathy.Vessels: | | Normal caliber of the abdominal aorta.IMPRESSION: No acute abnormality of the chest, | | abdomen, or pelvis.No rib fracture or splenic injury.Diverticulosis without | | diverticulitis.Dictated and Signed by: Randy Urena MD Electronically signed: | | 02/19/2020 5:21 PM | |Vessels: Normal caliber of the thoracic aorta. | | | |Lungs: No airspace consolidation. No significant pulmonary nodule. | |Large airways: Unremarkable. | |Pleura: No pleural effusion or pneumothorax. | | | |ABDOMEN/PELVIS: | |Abdominal wall: No inguinal lymphadenopathy. | | | |Liver: No mass lesion. | |Gallbladder: Surgically absent. | |Pancreas: No mass or ductal dilatation. | |Spleen: Unremarkable. | | | |Adrenals: No nodule. | |Kidneys: No nephrolithiasis or hydronephrosis. No evidence of a soft tissue | |mass. | |Ureters: No hydroureter. | |Urinary Bladder: Partially distended without focal wall thickening. | |Reproductive organs: No pelvic mass. | | | |Bowel: Multiple colonic diverticula without pericolonic inflammation. The | |appendix is not identified and there is no evidence of appendicitis. No | |obstruction or wall thickening. Gastric sleeve changes. | |Peritoneum/retroperitoneum: No ascites, free air, or lymphadenopathy. | |Vessels: Normal caliber of the abdominal aorta. | | | | | |IMPRESSION: | | | |No acute abnormality of the chest, abdomen, or pelvis. | | | |No rib fracture or splenic injury. | | | |Diverticulosis without diverticulitis. | | | | | |Dictated and Signed by: Randy Urena MD | | Electronically signed: 02/19/2020 5:21 PM | + + + +---------+ + + | Performing | Address | City/State[facility] | Phone Number | | Organization | | | | + +---------+ + + | [facility] | | | | + +---------+ + + Comprehensive Metabolic Panel (02/19/2020 4:40 PM PDT) + + + + + + | Component | Value | Ref Range | Performed | Pathologist | | | | | At | Signature | + + + + + + | Na | 144 | 136 - 145 | [facility] | | | | | mmol/L | [facility] | | | | | | [facility] | | | | | | [facility] - | | | | | | LABORATORY | | + + + + + + | K | 3.5 | 3.4 - 5.1 | [facility] | | | | | mmol/L | [facility] | | | | | | [facility] | | | | | | [facility] - | | | | | | LABORATORY | | + + + + + + | Cl | 107 | 98 - 107 mmol/L | [facility] | | | | | | [facility] | | | | | | [facility] | | | | | | [facility] - | | | | | | LABORATORY | | + + + + + + | CO2 | 28 | 20 - 31 mmol/L | [facility] | | | | | | [facility] | | | | | | [facility] | | | | | | [facility] - | | | | | | LABORATORY | | + + + + + + | Anion Gap | 9 | 3 - 16 mmol/L | [facility] | | | | | | [facility] | | | | | | [facility] | | | | | | [facility] - | | | | | | LAB[facility]ATORY | | + + + + + + | Glucose | 105 | 60 - 106 mg/dL | [facility] | | | | | | [facility] | | | | | | [facility] | | | | | | [facility] - | | | | | | LABORATORY | | + + + + + + | BUN | 11 | 9 - 23 mg/dL | [facility] | | | | | | [facility] | | | | | | [facility] | | | | | | C[facility] - | | | | | | LABORATORY | | + + + + + + | Creatinine | 0.77 | 0.70 - 1.30 | [facility] | | | | | mg/dL | [facility] | | | | | | MEDICAL | | | | | | CENTER - | | | | | | LABORATORY | | + + + + + + | eGFR, | >60Comment: GLOMERULAR | >=60 | [facility] | | | non- | FILTRATION | mL/min/1.73m2 | [facility] | | | [place] | RATE,ESTIMATED | | MEDICAL | | | | mL/min/1.87e0Plkf than | | CENTER - | | [...] | 9.8 | 8.7 - 10.4 | [facility] | | | | | mg/dL | [facility] | | | | | | MEDICAL | | | | | | CENTER - | | | | | | LABORATORY | | + + + + + + | Albumin | 4.7 | 3.2 - 4.8 g/dL | [facility] [...] + + + + | Total | 7.5 | 5.7 - 8.2 g/dL | [facility] | | | Protein | | | [facility] | | | | | | MEDICAL | | | | | | CENTER - | | | | | | LABORATORY | | + + + + + + | AST | 18 | 0 - 34 U/L | [facility] | | | | | | [facility] | | | | | | [facility] | | | | | | [facility] - | | | | | | LABORATORY | | + + + + + + | ALT | 15 | 10 - 49 U/L | [facility] | | | | | | [facility] | | | | | | [facility] | | | | | | CENTER - | | | | | | LABORATORY | | + + + + + + | Alkaline | 48 | 46 - 116 U/L | [facility] | | | Phosphatase | | | [facility] | | | | | | [facility]ICAL | | | | | | CENTER - | | | | | | LABORATORY | | + + + + + + | Globulin | 2.8 | 2.1 - 3.8 g/dL | [facility] | | | | | | [facility] | | | | | | [facility]ICAL | | | | | | CENTER - | | | | | | LABORATORY | | + + + + + + | Albumin/Margot | 1.7 | 0.8 - 1.9 | [facility] | | | bulin Ratio | | | [facility] | | | | | | MEDICAL | | | | | | CENTER - | | | | | | LABORATORY | | + + + + + + | BUN/Creatin | 14.3 | | [facility] | | | ine Ratio | | | [facility] | | | | | | MEDICAL [...] [address] | [place] | [phone] | | [facility] | | [address] | | | - LABORATORY | | | | + + + + + CBC with Differential (02/19/2020 4:40 PM PDT) + + + + + + | Component | Value | Ref Range | Performed | Pathologist | | | | | At | Signature | + + + + + + | White Blood | 8.3 | 4.0 - 11.0 K/uL | [facility] | | | Cells | | | [facility] | | | | | | MEDICAL | | | | | | CENTER - | | | | | | LABORATORY | | + + + + + + | Red Blood | 4.30 | 4.30 - 5.70 | [facility] | | | Cells | | M/uL | [facility] | | | | | | [facility]ICAL | | | | | | CENTER - | | | | | | LABORATORY | | + + + + + + | Hemoglobin | 12.7 (L) | 13.5 - 18.0 | [facility] | | | | | g/dL | [facility] | | | | | | MEDICAL | | | | | | CENTER - | | | | | | LABORATORY | | + + + + + + | Hematocrit | 39.3 (L) | 40.0 - 51.0 % | [facility] | | | | | | [facility] | | | | | | [facility] | | | | | | CENTER - | | | | | | LABORATORY | | + + + + + + | MCV | 91.4 | 83.0 - 101.0 fL | [facility] | | | | | | [facility] | | | | | | [facility] | | | | | | C[facility] - | | | | | | LABORATORY | | + + + + + + | MCH | 29.5 | 28.0 - 35.0 pg | [facility] | | | | | | [facility] | | | | | | [facility] | | | | | | C[facility] - | | | | | | LABORATORY | | + + + + + + | MCHC | 32.3 | 32.0 - 36.0 | [facility] | | | | | g/dL | [facility] | | | | | | [facility]ICAL | | | | | | CENTER - | | | | | | LABORATORY | | + + + + + + | RDW-CV | 13.1 | <15.0 % | [facility] | | | | | | [facility] | | | | | | [facility] | | | | | | CENTER - | | | | | | LABORATORY | | + + + + + + | RDW-SD | 43.9 | 35.1 - 46.3 fL | [facility] | | | | | | [facility] | | | | | | [facility] | | | | | | C[facility] - | | | | | | LABORATORY | | + + + + + + | Platelet | 225 | 140 - 440 K/uL | [facility] | | | Count | | | [facility] | | | | | | [facility] | | | | | | CENTER - | | | | | | LABORATORY | | + + + + + + | MPV | 9.5 | 6.5 - 12.4 fL | [facility] | | | | | | [facility] | | | | | | [facility] | | | | | | [facility] - | | | | | | LABORATORY | | + + + + + + | % | 60.1 | 45.0 - 82.0 % | [facility] | | | Neutrophils | | | [facility] | | | | | | MEDICAL | | | | | | CENTER - | | | | | | LABORATORY | | + + + + + + | % | 29.1 | 20.0 - 45.0 % | [facility] | | | Lymphocytes | | | [facility] | | | | | | MEDICAL | | | | | | CENTER - | | | | | | LABORATORY | | + + + + + + | % Monocytes | 5.9 | 4.0 - 12.0 % | [facility] | | | | | | [facility] | | | | | | [facility] | | | | | | CENTER - | | | | | | LABORATORY | | + + + + + + | % | 4.2 | 0.0 - 5.0 % | [facility] | | | Eosinophils | | | [facility] | | | | | | MEDICAL [...] | | | Granulocyte | | | [facility] | | | s | | | MEDICAL | | | | | | CENTER - | | | | | | LABORATORY | | + + + + + + | Absolute | 4.97 | 1.80 - 8.50 | [facility] | | | Neutrophils | | K/uL | [facility] | | | | | | MEDICAL | | | | | | CENTER - | | | | | | LABORATORY | | + + + + + + | Absolute | 2.41 | 0.60 - 3.20 | [facility] | | | Lymphocytes | | K/uL | [facility] | | | | | | [facility] | | | | | | CENTER - | | | | | | LABORATORY | | + + + + + + | Absolute | 0.49 | 0.00 - 1.00 | [facility] | | | Monocytes | | K/uL | [facility] | | | | | | MEDICAL | | | | | | CENTER - | | | | | | LABORATORY | | + + + + + + | Absolute | 0.35 | 0.00 - 0.40 | [facility] | [...] | Absolute | 0.02 | 0.00 - 0.03 | [facility] | [...] ST. | [address] | [place] | [phone] | | [facility] | | [address] | | | - LABORATORY | | | | + + + + + documented in this encounter Visit Diagnoses + + | Diagnosis | + + | Contusion of thoracic wall, unspecified area of thoracic wall, initial encounter - | | Primary | + + documented in this encounter Administered Medications + +--------+ +-------+------+------+ | Medication Order | MAR | Action | Dose | Rate | Site | | | Action | Date | | | | + +--------+ +-------+------+------+ | cyclobenzaprine (FLEXERIL) | Given | 02/19/20 | 10 mg | | | | tablet 10 mg 10 mg, Oral, ONCE, | | 20 5:36 | | | | | 02/19/20 at 1735, For 1 dose | | PM PDT | | | | + +--------+ +-------+------+------+ +---+---+ | | | +---+---+ + +-------+ +--------+---+---+ | fentaNYL (PF) injection 50 mcg | Given | 02/19/20 | 50 mcg | | | | 50 mcg, Intravenous, ONCE, Tue | | 20 4:40 | | | | | 02/19/20 at 1615, For 1 dose | | PM PDT | | | | + +-------+ +--------+---+---+ +---+---+ | | | +---+---+ + +-------+ +---------+---+---+ | iohexol (OMNIPAQUE 350) 350 | Given | 02/19/20 | 100 mLs | | | | mg/mL injection 100 mL 100 mL, | | 20 4:55 | | | | | Intravenous, ONCE PRN, Other, | | PM PDT | | | | | Starting 02/19/20 at 1655, For | | | | | | | 1 dose, Cat Scanner | | | | | | + +-------+ +---------+---+---+ +---+---+ | | | +---+---+ + +-------+ +-------+---+---+ | ketorolac (TORADOL) injection | Given | 02/19/20 | 15 mg | | | | 15 mg 15 mg, Intravenous, ONCE, | | 20 5:36 | | | | | 02/19/20 at 1735, For 1 dose | | PM PDT | | | | + +-------+ +-------+---+---+ +---+---+ | | | +---+---+ + +---------+ +--------+-------+---+ | sodium chloride 0.9% (NS) bolus | New Bag | 02/19/20 | 1,000 | 2000 | | | 1,000 mL 1,000 mL, Intravenous, | | 20 4:40 | mLs | mL/hr | | | Administer over 30 Minutes, | | PM PDT | | | | | ONCE, Marilin 02/19/20 at 1615, For 1 | | | | | | | dose | | | | | | + +---------+ +--------+-------+---+ +---+---+ | | | +---+---+ documented in this encounter
--- OUTSIDE RECORDS SUMMARY | ~2020-07-13 | XMS | Encounter Summary ---
Demographics + + + | Address | [address] | | | [place] [address] | + + + | Home Phone | | + + + | Preferred Language | Unknown | + + + | Marital Status | Single | + + + | Baptism Affiliation | Unknown | + + + | Race | White | + + + | Ethnic Group | Not or | + + + Author + + + | Author | [facility] | | | and [place] | + + + | Organization | [facility] | | | [...] | | | | | [place] [address] | | + + + + + Care Team Providers + +------+ + | Care Skate Hop Name | Role | Phone | + +------+ + | Chance Dudley MD | PCP | | + +------+ + Reason for Visit + +--------+ + | Reason | Onset | Comments | | | Date | | + +--------+ + | Diagnostic Order | 05/23/ | PFT | | | 2020 | | + +--------+ + Encounter Details +--------+ + + + + | Date | Type | Department | Care Team | Description | +--------+ + + + + | 05/23/ | Telephone | [facility] | Chance Dudley, | Diagnostic Order | | 2019 | | [facility] | [address] | (PFT) | | | | [address] | [place] | | | | | [place] | [address] | | | | | [address] | | | | | | [phone] | | | +--------+ + + + [...] this encounter Miscellaneous Notes Telephone Encounter - Jaky Michael RN - 05/26/2020 9:43 AM PDTNew order placed for PFT 100-full PFT. elephon e Encounter - Vesta Alan RN - 05/26/2020 8:57 AM PDTI left message with PFT gomez barrios for more information. 8:5 7 AM PDTTelephone Encounter - Sully Ornelas - 05/23/2020 11:56 AM PDTJody in the [facility] and stated patient is schedule for a PFT on 05-30-20 and 9:00am bu t needs to have a new order placed as a [id number]. documented in this encounter Plan of Treatment [...] | | + +------+--------+ + + | Pulmonary function | PFT | Routin | Other acute | Ordered: 05/26/2020 | | test | | e | pulmonary embolism | | | | | | without acute cor | | | | | | pulmonale (HCC) | | + +------+--------+ + + documented as of this encounter Visit Diagnoses + + | Diagnosis | + + | Other acute pulmonary embolism without acute cor pulmonale (HCC) - Primary | + + documented in this encounter"
--- OUTSIDE RECORDS SUMMARY | ~2020-07-13 | XMS | Encounter Summary ---
Demographics + + + | Address | [address] | | | [place] [address] | + + + | Home Phone | | + + + | Preferred Language | Unknown | + + + | Marital Status | Single | + + + | Moravian Affiliation | Unknown | + + + | Race | White | + + + | Ethnic Group | Not or | + + + Author + + + | Author | [facility] | | | and [place] | + + + | Organization | [facility] | | | and [...] | | | | | [place] [address] | | + + + + + Care Team Providers + +------+ + | Care Head Silverman Name | Role | Phone | + +------+ + | Chance Dudley MD | PCP | | + +------+ + Reason for Visit + +--------+ + | Reason | Onset | Comments | | | Date | | + +--------+ + | Shortness of Breath | 04/08/ | | | | 2019 | | + +--------+ + | Sternum Pain | 04/08/ | | | | 2019 | | + +--------+ + Encounter Details +--------+ + + + + | Date | Type | Department | Care Team | Description | +--------+ + + + + | 04/08/ | Telephone | [facility] | Chance Dudley, | Shortness of Breath; | | 2019 | | [facility] | [address] | Sternum Pain | | | | [address] | [place], [place] | | | | | [place], [place] | [address] | | | | | [address] | | | | | | [phone] | | | +--------+ + + + [...] Telephone Encounter - Shraddha Givens RN - 04/08/2020 11:05 AM PDTPatient's mom donna zamora stating "patient is having a hard time breathing, he cannot take a deep breath." She states he has a history of sternum and rib fractures in 06/2019. He has been to the ER multiple times. Mom wants patient to see Dr Dudley "because he is a lways able to figure things out." Patient discontinued his warfarin "himself because the ER doctor told him he no longer need ed it." No evidence of this from past ER notes. Looks like he discontinued it sometime after 12/27 which was his last visit with Stefan andrade Scheduled to see Dr Dudley today.Electronically signed by Shraddha Givens RN at 11:22 AM PDTdocumented in this encounter Plan of Treatment [...] [place] | | | | | | [id number] | | | | | | | | +--------+---------+ + + + documented as of this encounter Visit Diagnoses Not on filedocumented in this encounter
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
--- OUTSIDE RECORDS SUMMARY | ~2020-07-13 | XMS | Encounter Summary ---
Demographics + + + | Address | [address] | | | [place] [address] | + + + | Home Phone [...] + + + | Author | [facility] | | | and [place] | + + + | Organization | [facility] [...] [address] [place] | | | | | [place] [address] | | + + + + + Care Team Providers + +------+ + | Care Presales Consultant Name | Role | Phone | + +------+ + | Chance Dudley MD | PCP | | + +------+ + Encounter Details +--------+ + + + + | Date | Type | Department | Care Team | Description | +--------+ + + + + | 12/11/ | Imaging | [facility] | Chance Dudley, | Chest pain, | | 2020 | Exam | [facility] [address] | unspecified type; | | | [address] [place] | [place] | SOB (shortness of | | | | [place] [id number] | [address] | breath) | | | | [phone] | | | +--------+ + + + [...] [address]VE | | | | | | [place] | | | | | | [address] | | | | | | | | +--------+---------+ + + + documented as of this encounter Procedures + +--------+ + + + | Procedure Name | Priori | Date/Time | Associated Diagnosis | Comments | | | ty | | | | + +--------+ + + + | XR CHEST PA AND | Routin | 12/11/2019 | Chest pain, | Results for this | | LATERAL | e | 4:31 PM | unspecified type | procedure are in the | | | | PST | SOB (shortness of | results section. | | | | | breath) | | + +--------+ + + + documented in this encounter Results XR Chest PA and Lateral (12/11/2019 4:31 PM PST) + + | Specimen | + + | | + + + + + | Impressions | Performed At | + + + | No acute findings. Dictated and Signed by: Les Garcia MD | [facility] | | Electronically signed: 12/11/2019 7:01 PM | | + + + + + + | Narrative | Performed At | + + + | XR CHEST PA AND LATERAL 12/11/2019 4:31 PM HISTORY: right sided | [facility] | | pleuritic CP and SOB s/p EGD. COMPARISON: Multiple priors. | | | Findings: Heart size is within normal limits. Aorta is normal. | | | Mediastinum demonstrates no acute findings. Central pulmonary | | | vasculature is normal. The bilateral lungs are clear with no evidence | | | for pleural effusion or pneumothorax. There are no acute osseous | | | abnormalities. | | + + + + + | Procedure Note | + + | Rudolph, Rad Results In - 12/11/2019 7:04 PM PST XR CHEST PA AND LATERAL 12/11/2019 4:31 | | PMHISTORY: right sided pleuritic CP and SOB s/p EGD.COMPARISON: Multiple | | priors.Findings:Heart size is within normal limits. Aorta is normal. Mediastinum | | demonstrates noacute findings. Central pulmonary vasculature is normal. The bilateral | | lungs areclear with no evidence for pleural effusion or pneumothorax. There are no | | acuteosseous abnormalities.IMPRESSION: No acute findings.Dictated and Signed by: Les | | MD Jose Electronically signed: 12/11/2019 7:01 PM | |Heart size is within normal limits. Aorta is normal. Mediastinum demonstrates no | |acute findings. Central pulmonary vasculature is normal. The bilateral lungs are | |clear with no evidence for pleural effusion or pneumothorax. There are no acute | |osseous abnormalities. | | | |IMPRESSION: | |No acute findings. | | | |Dictated and Signed by: Les Garcia MD | | Electronically signed: 12/11/2019 7:01 PM | + + + +---------+ + + | Performing | Address | City/State/Zipcode | Phone Number | | Organization | | | | + +---------+ + + | [facility] | | | | + +---------+ + + documented in this encounter Visit Diagnoses + + | Diagnosis | + + | Chest pain, unspecified type | + + | SOB (shortness of breath) Shortness of breath | + + documented in this encounter"
--- OUTSIDE RECORDS SUMMARY | ~2020-07-13 | XMS | Encounter Summary ---
Demographics + + + | Address | [address] | | | [place] [address] | + + + | Home Phone [...] | | | | | [place] [address] | | + + + + + Care Team Providers + +------+ + | Care Relations Director Name | Role | Phone | + +------+ + | Chance Dudley MD | PCP | | + +------+ + Reason for Visit + +--------+ + | Reason | Onset | Comments | | | Date | | + +--------+ + | Medication Refill | 03/29/ | | | | 2018 | | + +--------+ + Encounter Details +--------+--------+ + + + | Date | Type | Department | Care Team | Description | +--------+--------+ + + + | 03/29/ | Refill | [facility] | Chance Dudley, | Medication Refill | | 2018 | | [facility] [place] | [address] | | | | | [address] | [place] [address] | | | | | [place] | [address] | | | | | [address] | | | | | | [phone] | | | +--------+--------+ + + + [...] Telephone Encounter - Sujatha Chaparro RN - 03/29/2018 11:18 AM Tuan calls from [facility]. Last month they dispensed testosterone 150 mg which is a 1-month supply. Rx from 03/27 is only written for 75 g. Asks if they should only provide 75 g for 15-day supply or if they can continue doing 150 g. Gave verbal authorization to continue dispensing 150 g. Medication note entered. At next refill will update quantity to 150 g. Electronically ratna d by Sujatha Chaparro RN at 03/29/2018 11:20 AM PDTdocumented in this encounter Plan of [...]
--- OUTSIDE RECORDS SUMMARY | ~2020-07-13 | XMS | Encounter Summary ---
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 +---+---+ | | | +---+---+ + + + +------+---+---+ | ondansetron (ZOFRAN ODT) | Dispense | 12/17/19 | 4 mg | | | | disintegrating tablet (ED | to Home | 19 2:15 | | | | | homepack) 4-8 mg 4-8 mg, Oral, | | AM PST | | | | | EVERY 8 HOURS PRN, Nausea, | | | | | | | Vomiting, Starting 12/17/18 at | | | | | | | 0208 | | | | | | + + + +------+---+---+ +---+---+ | | | +---+---+ + +-------+ +------+---+---+ | ondansetron (ZOFRAN) injection | Given | 12/17/19 | 4 mg | | | | 4 mg 4 mg, Intravenous, EVERY 1 | | 19 1:10 | | | | | HOUR PRN, Nausea, Vomiting, | | AM PST | | | | | Starting 12/17/18 at 0059, For | | | | | | | 2 doses | | | | | | + +-------+ +------+---+---+ +---+---+ | | | +---+---+ + +---------+ +--------+-------+---+ | sodium chloride 0.9% (NS) bolus | New Bag | 12/17/19 | 1,000 | 2000 | | | 1,000 mL 1,000 mL, Intravenous, | | 19 1:10 | mLs | mL/hr | | | Administer over 30 Minutes, | | AM PST | | | | | ONCE, 12/17/18 at 0100, For 1 | | | | | | | dose | | | | | | + +---------+ +--------+-------+---+ +---+---+ | | | +---+---+ documented in this encounter
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
--- OUTSIDE RECORDS SUMMARY | ~2020-07-13 | XMS | Encounter Summary ---
Demographics + + + | Address | [address] | | | [place] [address] | + + + | Home Phone [...] Author + + + | Author | [facility] | | | and [place] | + + + | Organization | [facility] | | | and [...] | | | | | [place] [address] | | + + + + + Care Team Providers + +------+ + | Care Alteration Tailor Name | Role | Phone | + [...] Closed | | Radiology | Diagnoses | [facility] | | | | | Chronic | Chance Brewster MD | [address] | | | | | left | [address] | [place], | | | | | shoulder | [address] [place] | [place] | | | | | pain | [place] | [address] | | | | | Procedures | [address] | Phone: | | | | | MRI Shoulder | Phone: | [phone] | | | | | Left | [phone] | Fax: | | | | | Arthrogram w | Fax: | [phone] | | | | | Contrast | [phone] | | +--------+--------+ + + + + Reason for Visit Diagnostic/Screening (Routine) +--------+--------+ + + + + | Status | Reason | Specialty | Diagnoses / | Referred By | Referred To | | | | | Procedures | Contact | Contact | +--------+--------+ + + + + | Closed | | Radiology | Diagnoses | [place], | [facility] | | | | | Chronic | Chance Brewster MD | [address] | | | | | left | [address] | [place], | | | | | shoulder | [address] [place] | [place] | | | | | pain | [place], [place] | [address] | | | | | Procedures | [address] | Phone: | | | | | MRI Shoulder | Phone: | [phone] | | | | | Left | [phone] | Fax: | | | | | Arthrogram w | Fax: | [phone] | | | | | Contrast | [phone] | | +--------+--------+ + + + + Encounter Details +--------+ + + + + | Date | Type | Department | Care Team | Description | +--------+ + + + + | 09/03/ | Hospital | [facility] | Chance Dudley, | Chronic left | | 2016 | Encounter | [facility] [address] | shoulder pain | | | | [address] [place], | [place], [place] | | | | | [place] [address] | [address] | | | | | [phone] | | | +--------+ + + + [...] + + documented as of this encounter Medications at Time of Discharge [...] [place] | | | | | | [address] | | | | | | | | +--------+---------+ + + + documented as of this encounter Procedures + +--------+ + + + | Procedure Name | Priori | Date/Time | Associated Diagnosis | Comments | | | ty | | | | + +--------+ + + + | MRI SHOULDER LEFT | Routin | 09/03/2016 | Chronic left | Results for this | | ARTHROGRAM W | e | 9:08 AM | shoulder pain | procedure are in the | | CONTRAST | | PDT | | results section. | + +--------+ + + + documented in this encounter Results MRI Shoulder Left Arthrogram w Contrast (09/03/2016 9:08 AM PDT) + + | Specimen | + + | | + + + + + | Narrative | Performed At | + + + | MR ARTHROGRAM LEFT SHOULDER 09/03/2016 9:00 AM CLINICAL | [facility] | | HISTORY:Chronic left shoulder pain COMPARISON: Shoulder | [facility] | | radiographs July 06 TECHNIQUE: Following the [facility] | | intraarticular injection of a dilute gadolinium solution, the | - IMAGING | | following 3T MR sequences of the left shoulder were obtained: 1.? | | | Axial, sagittal and coronal T1 with fat suppression. 2.? Coronal and | | | sagittal proton-density with fat suppression. 3.? Coronal T2. | | | FINDINGS: Marrow signal demonstrates no evidence of recent fracture or | | | edema of other etiology. There is slightly irregular flattening of | | | the contour of the posterior lateral aspect of the humeral head, | | | suggestive of Hill-Sachs deformity. The acromioclavicular joint is | | | maintained. The acromial arch is type I in configuration. | | | Minimal partial thickness articular sided tear of the distal | | | supraspinatus tendon is suggested at its humeral insertion. | | | Allowing for some motion artifact, the supraspinatus, | | | infraspinatus, teres minor and subscapularis tendons otherwise appear | | | intact and unremarkable. There is no extension of contrast into | | | the subacromial/subdeltoid bursa. The long head biceps tendon is | | | appropriately positioned within the intertubercular groove, and along | | | with its anchor, appears intact. There is a contrast-filled cleft | | | extending throughout the base of the anterior glenoid labrum, | | | consistent with tear/detachment, with probable elevation of the | | | periosteum along the anterior margin of the bony glenoid as well. | | | There is additional signal heterogeneity within the superior | | | labrum, suspicious for tear. There is a linear defect in the | | | anterior glenoid cartilage. Cartilage elsewhere in the glenohumeral | | | joint appears somewhat thinned. No intra-articular loose body is | | | identified. The soft tissues about the shoulder are otherwise | | | unremarkable. IMPRESSION - 1. TEAR/DETACHMENT OF THE ANTERIOR | | | GLENOID LABRUM AND ELEVATION OF THE ANTERIOR GLENOID PERIOSTEAL | | | SLEEVE, WITH PROBABLE EXTENSION OF TEAR INTO THE SUPERIOR LABRUM, AND | | | PROBABLE DEFECT IN THE ANTERIOR GLENOID CARTILAGE. MILD FLATTENING | | | AND IRREGULARITY OF THE CONTOUR OF THE POSTERIOR LATERAL HUMERAL HEAD | | | IS CONSISTENT WITH HILL-SACHS DEFORMITY PRESUMABLY RELATED TO | | | PREVIOUS ANTERIOR DISLOCATION. Dictated and Signed by: Dwayne | | | MD Josr Electronically signed: 09/03/2016 9:49 AM | | + + + + + | Procedure Note | + + | Rudolph, Rad Results In - 09/03/2016 9:52 AM PDT MR ARTHROGRAM LEFT SHOULDER 09/03/2016 | | 9:00 AMCLINICAL HISTORY:Chronic left shoulder pain COMPARISON: Shoulder radiographs | | July 06 TECHNIQUE: Following the uneventful intraarticular injection of a | | dilutegadolinium solution, the following 3T MR sequences of the left shoulder | | wereobtained:1.? Axial, sagittal and coronal T1 with fat suppression.2.? Coronal and | | sagittal proton-density with fat suppression.3.? Coronal T2.FINDINGS: Marrow signal | | demonstrates no evidence of recent fracture or edema ofother etiology. There is | | slightly irregular flattening of the contour of theposterior lateral aspect of the | | humeral head, suggestive of Hill-Sachsdeformity. The acromioclavicular joint is | | maintained. The acromial arch istype I in configuration.Minimal partial thickness | | articular sided tear of the distal supraspinatustendon is suggested at its humeral | | insertion. Allowing for some motionartifact, the supraspinatus, infraspinatus, teres | | minor and subscapularistendons otherwise appear intact and unremarkable. There is no | | extension ofcontrast into the subacromial/subdeltoid bursa. The long head biceps tendon | | isappropriately positioned within the intertubercular groove, and along with itsanchor, | | appears intact.There is a contrast-filled cleft extending throughout the base of the | | anteriorglenoid labrum, consistent with tear/detachment, with probable elevation of | | theperiosteum along the anterior margin of the bony glenoid as well. There isadditional | | signal heterogeneity within the superior labrum, suspicious for tear. There is a linear | | defect in the anterior glenoid cartilage. Cartilageelsewhere in the glenohumeral joint | | appears somewhat thinned. Nointra-articular loose body is identified. The soft | | tissues about the shoulderare otherwise unremarkable.IMPRESSION - 1. TEAR/DETACHMENT | | OF THE ANTERIOR GLENOID LABRUM AND ELEVATION OF THEANTERIOR GLENOID PERIOSTEAL SLEEVE, | | WITH PROBABLE EXTENSION OF TEAR INTO THESUPERIOR LABRUM, AND PROBABLE DEFECT IN THE | | ANTERIOR GLENOID CARTILAGE. MILDFLATTENING AND IRREGULARITY OF THE CONTOUR OF THE | | POSTERIOR LATERAL HUMERAL HEADIS CONSISTENT WITH HILL-SACHS DEFORMITY PRESUMABLY RELATED | | TO PREVIOUS ANTERIORDISLOCATION.Dictated and Signed by: Dwayne Ovalles MD Electronically | | signed: 09/03/2016 9:49 AM | |glenoid labrum, consistent with tear/detachment, with probable elevation of the | |periosteum along the anterior margin of the bony glenoid as well. There is | |additional signal heterogeneity within the superior labrum, suspicious for tear. | | There is a linear defect in the anterior glenoid cartilage. Cartilage | |elsewhere in the glenohumeral joint appears somewhat thinned. No | |intra-articular loose body is identified. The soft tissues about the shoulder | |are otherwise unremarkable. | | | |IMPRESSION - | |1. TEAR/DETACHMENT OF THE ANTERIOR GLENOID LABRUM AND ELEVATION OF THE | |ANTERIOR GLENOID PERIOSTEAL SLEEVE, WITH PROBABLE EXTENSION OF TEAR INTO THE | |SUPERIOR LABRUM, AND PROBABLE DEFECT IN THE ANTERIOR GLENOID CARTILAGE. MILD | |FLATTENING AND IRREGULARITY OF THE CONTOUR OF THE POSTERIOR LATERAL HUMERAL HEAD | |IS CONSISTENT WITH HILL-SACHS DEFORMITY PRESUMABLY RELATED TO PREVIOUS ANTERIOR | |DISLOCATION. | | | |Dictated and Signed by: Dwayne Ovalles MD | | Electronically signed: 09/03/2016 9:49 AM | + + + + + + + | Performing | Address | City/State/Zipcode | Phone Number | | Organization | | | | + + + + + | [facility] | [address] | [place] | [phone] | | [facility] | | [address] | | | - IMAGING | | | | + + + + + documented in this encounter Visit Diagnoses + + | Diagnosis | + + | Chronic left shoulder pain Pain in joint, shoulder region | + + documented in this encounter"
--- OUTSIDE RECORDS SUMMARY | ~2020-07-13 | XMS | Encounter Summary ---
Demographics + + + | Address | [address] | | | [place] [address] | + + + | Home Phone [...] + + + | Author | [facility] | | | and [place] | + + + | Organization | [facility] | | | [...] [place] | | | | | [place] [address] | | + + + + + Care Team Providers + +------+ + | Care Chainstitch Binder Name | Role | Phone | + +------+ + | Chance Dudley MD | PCP | | + +------+ + Reason for Visit + + + | Reason | Comments | + + + | Abnormal Lab | | + + + Encounter Details +--------+ + + + + | Date | Type | Department | Care Team | Description | +--------+ + + + + | 12/11/ | Emergency | [facility] | Peng Abad | Pulmonary embolism, | | 2019 | | [facility] | MD [facility] [address] | unspecified | | | | CENTER [address] | [address] [place] | chronicity, | | | | [place], [place] | [place] [address] | unspecified | | | | [address] | [phone] | pulmonary embolism | | | | [phone] | | type, unspecified | | | | | | whether acute cor | | | | | | pulmonale present | | | | | | ([facility]) (Primary Dx) | +--------+ + + + [...] + + + | Blood Pressure | 118/74 | 12/11/2019 8:59 PM | | | | | PST | | + + + + + | Pulse | 56 | 12/11/2019 9:08 PM | | | | | PST | | + + + + + | Temperature | 35.3 C (95.6 F) | 12/11/2019 6:27 PM | | | | | PST | | + + + + + | Respiratory Rate | 16 | 12/11/2019 6:27 PM | | | | | PST | | + + + + + | Oxygen Saturation | 100% | 12/11/2019 9:08 PM | | | | | PST | | + + + + + | Inhaled Oxygen | - | - | | | Concentration | | | | + + + + + | Weight | - | - | | + + + + + | Height | - | - | | + + + + + | Body Mass Index | - | - | | + [...] as of this encounter Discharge Instructions Instructions Luz Elena Reina, PharmD - 12/11/2019Take the following medications for the blood clot in your lungs: 1. Take Warfarin 5 mg by mouth once daily with dinner. 2. Inject 120 mg (0.8 mL) of Enoxaparin under the skin 2 times daily. It is important to take these every day and to not miss doses. Try to take at the same time every day. It is important to Follow-up with your doctor (Dr. Dudley) by Tuesday (12/14/19) and no lat er than Tuesday (12/17/19) to check your INR and to make adjustments to doses if needed. Monitor for signs and symptoms of bleeding and see your doctor if you experience any signs of bleeding. Please call if you have any questions or concerns ([phone]) AttachmentsThe following attachments cannot be sent through Care Everywhere.Embolism, Pulmo nary (Nepalese)Warfarin, What to Know When Taking (Nepalese)Warfarin tablets (Nepalese)Enoxapar in injection (Nepalese)documented in this encounter Medications at Time of [...] | 0 | | | | (MYCOSTATIN) 927854 | topically 2 times | | | [...] enoxaparin | Inject 0.8 mLs under | 14 | 0 | 12/11/19 | | | (LOVENOX) 120 mg/0.8 | the skin every 12 | Syringe | | 20 | 0 | | mL injection | hours for 7 days. | | | | [...] | | | | | | | Klinefeer | | | | | | | syndrome, | | | | | | | Hypogonadism in male | | | | | | + + + +---------+ + + | warfarin | Take 1 tablet by | 30 | 0 | 12/11/19 | | | (COUMADIN) 5 mg | mouth Daily for 30 | tablet | | 20 | 0 | | tabletIndications: | days. Take 1 tablet | | | | | | Pulmonary embolism, | daily for 30 days. | | | | | | unspecified [...] +---------+ + + | warfarin | Take 1.5 tablet | 45 | 0 | 12/11/19 | | | (COUMADIN) 5 mg | daily for 30 days. | tablet | | 20 | 0 | | tablet | | | | | | + + + +---------+ + + documented as of this encounter Progress Notes Luz Elena Reina, PharmD - 12/12/2019 12:07 AM PSTPHARMACY SERVICES: PATIENT EDUCATION Subjective/Objective: Met with Stiven Isidro Davila to provide teaching on the following including but not limited to : Explanation of Warfarin and Enoxaparin dosing and indication Appropriate instructions for Enoxaparin injection (stated that mother had recently administ ered these injections to her ) Importance of f/u with PCP for checking INR What INR is and the target goal (2-3) Signs and symptoms of bleeding and clots When to to call doctor; when to seek emergency care Importance of consistent diet and how Vit K plays a role in Warfarin and it's dosing Try to take at same time each day Importance of letting every provider know about taking blood thinner OTC medications to avoid and to always ask doctor or pharmacist before taking any supplemen ts/vitamins/otc medications Assessment/Plan: Patient stated understanding and all questions were answered. Patient left before giving written education material and these will mailed to patient on AM Would recommend reinforcement of above at next PCP appointment Let patient and mother know to please feel free to call pharmacy ([phone]) for any fur ther questions or concerns. Thank you. Electronically signed by: Luz Elena Reina PharmD 12/11/2019 10:22 PM documented in this encounter ED Notes Peng Abad MD - 12/11/2019 8:48 PM PSTFormatting of this note might be diff erent from the original. [facility] Stiven Davila Emergency Department Encounter Note [address] [place] [id number] PCP:Chance Dudley MD [phone] CHIEF COMPLAINT: Chief Complaint Patient presents with Abnormal Lab ED Room: ED14 HPI Stiven Davila is a 34 y.o. male who presents to the Emergency Department Patient presents with chief complaint of elevated d-dimer referred in for evaluation for P E. History of Aviva-Toro tear on the fifth for which she was scoped also has history of gastric sleeve. On arrival reports no associated pain currently though is having some pleur itic chest pain yesterday for it she was worked up via the primary care doctor's office. Language line access manager made available and used to collect historical details as needed. 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 Priority: High Note Last Updated: 05/03/2017 Karyotype 48, XXXY S/P laparoscopic sleeve gastrectomy 09/26/2018 Priority: Medium Note Last Updated: 09/26/2018 09/14/18 at [facility] Chronic left shoulder pain 09/03/2016 Priority: Medium Learning disability 06/05/2013 Priority: Medium Obesity (BMI 30.0-34.9) 08/16/2019 Priority: Low Gross hematuria 12/11/2019 Class: Temporary Note Last Updated: 12/11/201912/2019: repeat UA 12/11/2019: UA negative Type 2 diabetes mellitus without complication, without long-term current use of insulin ([facility]) 04/19/2017 Recurrent dislocation, left shoulder 09/03/2016 Tear of left glenoid labrum 09/03/2016 Hypogonadism in male 08/10/2016 Note Last Updated: 05/03/201707/2016: [facility] care 06/18/2013 Note Last Updated: 06/18/2013 LAST PSA:no record found RESULT: LAST COLONOSCOPY: RESULTno record found Past Surgical History: Procedure Laterality Date CHOLECYSTECTOMY, LAPAROSCOPIC 09/14/2018 [facility] at time of sleeve gastrectomy ELBOW SURGERY Left 1988 Left elbow-pins put in GASTRIC SURGERY gastric sleeve SHOULDER ARTHROSCOPY Left 10/08/2016 Procedure: Left Shoulder Arthroscopy w/ Labral Repair and Capsular Shift; Surgeon: Candie Murguia DO; Location: [facility]ALTH SYSTEM MAIN OR SLEEVE GASTROPLASTY 09/14/2018 [facility] UPPER GASTROINTESTINAL ENDOSCOPY N/A 12/03/2019 Procedure: EGD; Surgeon: Keren Luna MD; Location: HEALTH SYSTEM MEDICAL PROCEDURE UNIT CURRENT MEDICATIONS PUG [employer]PER[employer] HELPER Home Medications Medication Sig acyclovir (ZOVIRAX) 400 MG tablet take 1 tablet by mouth five times a day AT FIRST SIGN S OF COLD SORE OUTBREAK Multiple Vitamins-Minerals (BARIATRIC MULTIVITAMINS/IRON PO) Take 1 tablet by mouth Marika ly. Chewables. For post-bariatric surgery nystatin (MYCOSTATIN) 593358 UNIT/GM powder Apply 1 Application topically 2 [...] (1%) gel Apply 4 Act topically Daily. ALLERGIES Allergies Allergen Reactions Cephalexin Shortness [...] Merged History Encounter Raised by mom in [place], [place]. Father not involved, drug addict. Lives with mom and younger brother. Children: None Schooling: HS graduate, required specialized education plan. A couple courses in college. 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 Employment: Unemployed. Wants to work for "[employer] He completed the tra ining for it. He first needs to get in better shape. REVIEW OF SYSTEMS As in history of present illness. A 10 system review was otherwise negative. PHYSICAL EXAM VITAL SIGNS: (first vital signs):Temp: 35.3 C (95.6 F) Pulse: 68 Resp: 16 SpO2: 100 % B P: 154/76 There is no height or weight on file to calculate BMI. Constitutional: Chronically ill nondistressed male patient. HEENT: Atraumatic, PERRL, Oropharynx benign. [...] tested Psychiatric: Normal mood, affect and judgement. EKG 12-lead EKG shows LABS Results for orders placed or performed during the hospital encounter of 12/11/19 CBC with Differential Result Value Ref Range WBC 7.0 4.0 - 11.0 K/uL RBC 4.17 (L) 4.30 - 5.70 M/uL Hemoglobin 12.3 (L) 13.5 - 18.0 g/dL Hematocrit 37.8 (L) 40.0 - 51.0 % MCV 90.6 83.0 - 101.0 fL MCH 29.5 28.0 - 35.0 pg MCHC 32.5 32.0 - 36.0 g/dL RDW-CV 12.9 <15.0 % RDW-SD 42.7 35.1 - 46.3 fL Platelet Count 204 140 - 440 K/uL MPV 9.6 6.5 - 12.4 fL % Neutrophils 54.6 45.0 - 82.0 % % Lymphocytes 33.0 20.0 - 45.0 % % Monocytes 5.8 4.0 - 12.0 % % Eosinophils 5.7 (H) 0.0 - 5.0 % % Basophils 0.6 0.0 - 1.0 % % Immature Granulocytes 0.3 0.0 - 0.4 % Absolute Neutrophils 3.85 1.80 - 8.50 K/uL Absolute Lymphocytes 2.32 0.60 - 3.20 K/uL Absolute Monocytes 0.41 0.00 - 1.00 K/uL Absolute Eosinophils 0.40 0.00 - 0.40 K/uL Absolute Basophils 0.04 0.00 - 0.10 K/uL Absolute Immature Granulocytes 0.02 0.00 - 0.03 K/uL % nRBC 0 0 - 2 per 100 WBCs Absolute nRBC 0.00 0.00 - 0.01 K/uL Comprehensive Metabolic Panel Result Value Ref Range Na 141 136 - 145 mmol/L K 3.6 3.4 - 5.1 mmol/L Cl 104 98 - 107 mmol/L CO2 28 20 - 31 mmol/L Anion Gap 9 3 - 16 mmol/L Glucose 107 (H) 60 - 106 mg/dL BUN 15 9 - 23 mg/dL Creatinine 0.80 0.70 - 1.30 mg/dL eGFR if not >60 >=60 mL/min/1.73m2 Calcium 9.5 8.7 - 10.4 mg/dL Albumin 4.5 3.2 - 4.8 g/dL Bilirubin Total 0.4 0.3 - 1.2 mg/dL Total Protein 7.3 5.7 - 8.2 g/dL AST 17 0 - 34 U/L ALT 14 10 - 49 U/L Alkaline Phosphatase 43 (L) 46 - 116 U/L Globulin 2.8 2.1 - 3.8 g/dL Albumin/Globulin Ratio 1.6 0.8 - 1.9 BUN/Creatinine Ratio 18.8 Troponin I Result Value Ref Range Troponin I <0.01 <0.06 ng/mL B Type Natriuretic Peptide Result Value Ref Range BNP 9 <100 pg/mL ECG 12 lead Result Value Ref Range INTERPRETATION TEXT Not Confirmed IMAGING STUDIES (X-Rays interpreted by ED Physician) ED COURSE & MEDICAL DECISION MAKING Pertinent Labs & Imaging studies were reviewed along with EMS notes and [facility] record s if applicable. (See chart for details) Medications and Allergy list reviewed. Nurses note and old records were reviewed The patient was seen and examined, The patient was placed on the monitor and monitored. An iv was placed. The patient was given a normal saline bolus. Screening labs are ordered and reveal no acute pathology Hemoccult is negative. CT for PE does reveal pulmonary emboli in the right lower lobe there is no evidence of righ t heart strain or acute cardio pulmonary dysfunction from this. Vital signs remained reassu ring during ED course. He is started on anticoagulation therapy after case discussed with Janel kay whom reviews and clears patient for course. Counseled about home care will follow up with his pcp, counseled about strict return precau tions. The patient remained hemodynamically stable without evidence of shock or malperfusion durin g their ED course, at time of discharge patient is sitting/resting comfortably in no apparen t distress. The patient was counseled about their results and workup including all incidenta l findings and the need for out patient follow up to which they verbalized their understandi ng and were provided. The patient was counseled about the importance of medical recommendati ons today and the dangers including harm, , permanent injury, injury, morbidity, and mo rtality of non adherence to the treatment plan. They verbalize their understanding of today' s plan and agree with it. They were counseled that emergency services are available to them 20/06 and to return to the ED immediately if symptoms return, persist, change, worsen or new symptoms develop. The patient was given follow up. They were given further strict, thorough, actionable return precautions to which they verbalized their understanding. The patient's q uestions were answered and the patient agreed with the plan. The patient was discharged in g ood stable condition. Last Set of Vital Signs: Temp: 35.3 C (95.6 F) Pulse: 56 Resp: 16 SpO2: 100 % BP: 118/7 4 FINAL IMPRESSION ICD-10-CM ICD-9-CM 1. Pulmonary embolism, unspecified chronicity, unspecified pulmonary embolism type, unspeci fied whether acute cor pulmonale present ([facility]) I26.99 415.19 Follow-up Information Chance Dudley MD. Call today. Specialty: Family Medicine Why: Follow up this week to have your INR checked. Contact information: [address] [place] [address] [facility]. Specialty: Emergency Medicine Why: If symptoms worsen Contact information: [address] [place] [address] Discharge Medication List as of 12/11/2019 9:42 PM START taking these medications Details enoxaparin (LOVENOX) 120 mg/0.8 mL injection Inject 0.8 mLs under the skin every 12 hours f or 7 days.Disp-14 Syringe, R-0, Normal warfarin (COUMADIN) 5 mg tablet Take 1.5 tablet daily for 30 days.Disp-45 tablet, R-0, Norm al Administrations This Visit apixaban (ELIQUIS) tablet 10 mg Admin Date 12/11/2019 Action Given Dose 10 mg Route Oral Administered By Sisi Keating, RN iohexol (OMNIPAQUE 350) 350 mg/mL injection 70 mL Admin Date 12/11/2019 Action Given Dose 70 mL Route Intravenous Administered By Isamar Bruno, Technologist sodium chloride 0.9% (NS) bolus 1,000 mL Admin Date 12/11/2019 Action New Bag Dose 1000 mL Rate 250 mL/hr Route Intravenous Administered By Marycarmen Fink RN sodium chloride 0.9% (NS) bolus 35 mL Admin Date 12/11/2019 Action Push Dose 35 mL Rate 2,100 mL/hr Route Intravenous Administered By Isamar Bruno, Technologist Portions of this chart were created with [employer] voice recognition software. Inadvertent so und alike substitutions may be present and are unintentional Peng Abad MD 12/11/19 [id number] Teddy Parker RN - 12/11/2019 6:26 PM PSTPt reports constant shortness of breath x 1 week. He states he had chest x-ray and blood tests done at PCP office today and was later called and advised to come to ED with concern for possible PE. Pt reports occasional sharp pain in ri ght ribs and back. documented in this encounter Plan of Treatment [...] + | CT ANGIOGRAM | STAT | 12/11/2019 | | Results for this | | PULMONARY | | 7:37 PM | | procedure are in the | | | | PST | | results section. | + +--------+ + + + | TROPONIN I | STAT | 12/11/2019 | | Results for this | | | | 7:30 PM | | procedure are in the | | | | PST | | results section. | + +--------+ + + + | CBC WITH | STAT | 12/11/2019 | | Results for this | | DIFFERENTIAL | | 7:30 PM | | procedure are in the | | | | PST | | results section. | + +--------+ + + + | B TYPE NATRIURETIC | STAT | 12/11/2019 | | Results for this | | PEPTIDE | | 7:30 PM | | procedure are in the | | | | PST | | results section. | + +--------+ + + + | COMPREHENSIVE | STAT | 12/11/2019 | | Results for this | | METABOLIC PANEL | | 7:30 PM | | procedure are in the | | | | PST | | results section. | + +--------+ + + + | ECG 12 LEAD | STAT | 12/11/2019 | | Results for this | | | | 7:17 PM | | procedure are in the | | | | PST | | results section. | + +--------+ + + + documented in this encounter Results CT Angiogram Pulmonary w Contrast (12/11/2019 7:37 PM PST) + + | Specimen | + + | | + + + + + | Impressions | Performed At | + + + | Small burden of pulmonary emboli to right pulmonary artery lobar, | [facility] | | segmental, and subsegmental branches. Mild gynecomastia. | | | Dictated and Signed by: Les Garcia MD Electronically signed: | | | 12/11/2019 7:56 PM | | + + + + + + | Narrative | Performed At | + + + | CT ANGIOGRAM PULMONARY W CONTRAST 12/11/2019 7:34 PM HISTORY: PE | [facility] | | suspected, high pretest prob. COMPARISON: 12/02/2019. PROTOCOL: | | | Thin section axial images of the chest were obtained after uneventful | | | administration of 70 mL Omnipaque 350. Coronal and sagittal | | | reformations were acquired. FINDINGS: Neck base is normal. | | | The heart is of normal size. Aorta is normal. A small pulmonary | | | embolus is in the right pulmonary artery lobar branch to the right | | | middle lobe extending into a segmental branch. Another small embolus | | | is in the right pulmonary artery lobar branch to the right lower lobe | | | extending into segmental and subsegmental branches. SVC is normal. | | | No enlarged lymph nodes are seen in the mediastinum, regis, or | | | axillae. Tiny calcified lymph nodes are in the paratracheal and | | | subcarinal regions. Trachea and esophagus demonstrate no acute | | | findings. The bilateral lungs are clear. There is no evidence for | | | pleural effusion or pneumothorax. There are cholecystectomy | | | clips. Sutures are seen of the stomach for prior gastric reduction | | | surgery. There is bilateral gynecomastia. There is an old healed | | | fracture of the upper sternum. Mild spondylosis is present. | | | Multilevel mild to moderate disc narrowing is observed. | | + + + + + | Procedure Note | + + | Rudolph, Rad Results In - 12/11/2019 7:[address] ANGIOGRAM PULMONARY W CONTRAST | | 12/11/2019 7:34 PMHISTORY: PE suspected, high pretest prob.COMPARISON: 12/02/2019.PROTOCOL: | | Thin section axial images of the chest were obtained after uneventfuladministration of | | 70 mL Omnipaque 350. Coronal and sagittal reformations wereacquired.FINDINGS:Neck base | | is normal.The heart is of normal size. Aorta is normal. A small pulmonary embolus is | | inthe right pulmonary artery lobar branch to the right middle lobe extending intoa | | segmental branch. Another small embolus is in the right pulmonary artery lobarbranch to | | the right lower lobe extending into segmental and subsegmentalbranches. SVC is normal.No | | enlarged lymph nodes are seen in the mediastinum, regis, or axillae. Tinycalcified lymph | | nodes are in the paratracheal and subcarinal regions. Tracheaand esophagus demonstrate | | no acute findings.The bilateral lungs are clear. There is no evidence for pleural | | effusion orpneumothorax.There are cholecystectomy clips. Sutures are seen of the stomach | | for priorgastric reduction surgery.There is bilateral gynecomastia. There is an old | | healed fracture of the uppersternum. Mild spondylosis is present. Multilevel mild to | | moderate disc narrowingis observed.IMPRESSION: Small burden of pulmonary emboli to right | | pulmonary artery lobar, segmental, andsubsegmental branches.Mild gynecomastia.Dictated | | and Signed by: Les Garcia MD Electronically signed: 12/11/2019 7:56 PM | |branches. SVC is normal. | | | |No enlarged lymph nodes are seen in the mediastinum, regis, or axillae. Tiny | |calcified lymph nodes are in the paratracheal and subcarinal regions. Trachea | |and esophagus demonstrate no acute findings. | | | |The bilateral lungs are clear. There is no evidence for pleural effusion or | |pneumothorax. | | | |There are cholecystectomy clips. Sutures are seen of the stomach for prior | |gastric reduction surgery. | | | |There is bilateral gynecomastia. There is an old healed fracture of the upper | |sternum. Mild spondylosis is present. Multilevel mild to moderate disc narrowing | |is observed. | | | |IMPRESSION: | |Small burden of pulmonary emboli to right pulmonary artery lobar, segmental, and | |subsegmental branches. | | | |Mild gynecomastia. | | | |Dictated and Signed by: Les Garcia MD | | Electronically signed: 12/11/2019 7:56 PM | + + + +---------+ + + | Performing | Address | City/State/Zipcode | Phone Number | | Organization | | | | + +---------+ + + | [facility] | | | | + +---------+ + + B Type Natriuretic Peptide (12/11/2019 7:30 PM PST) + + + + + + | Component | Value | Ref Range | Performed | Pathologist | | | | | At | Signature | + + + + + + | BNP | 9Comment: New method in | <100 pg/mL | [facility] | | | | use as of January 24, | | [facility] | | | | 2019. Check reference | | MEDICAL | | [...] ST. | [address] | [place], [place] | [phone] | | [facility] | | [address] | | | - LABORATORY | | | | + + + + + Troponin I (12/11/2019 7:30 PM PST) + + + + + [...] [address] | [place] | [phone] | | [facility] | | [address] | | | - LABORATORY | | | | + + + + + Comprehensive Metabolic Panel (12/11/2019 7:30 PM PST) + + + + + [...] + + + + | K | 3.6 | 3.4 - 5.1 | [facility] | [...] + + + | Glucose | 107 (H) | 60 - 106 mg/dL | [facility] | | | | | | [facility] | | | | | | MEDICAL | | | | | | CENTER - | | | | | | LABORATORY | | + + + + + + | BUN | 15 | 9 - 23 mg/dL | [facility] | | | | | | [facility] | | | | | | MEDICAL | | | | | | CENTER - | | | | | | LABORATORY | | + + + + + + | Creatinine | 0.80 | 0.70 - 1.30 | [facility] | | | | | mg/dL | [facility] | | | | | | MEDICAL | | | | | | CENTER - | | | | | | LABORATORY | | + + + + + + | eGFR, | >60Comment: GLOMERULAR | >=60 | [facility] | | | non- | FILTRATION | mL/min/1.73m2 | [facility] | | | [place]oan | RATE,ESTIMATED | | MEDICAL | | | | mL/min/1.89l7Zbtz than | | CENTER - | | [...] + + + + | Total | 7.3 | 5.7 - 8.2 g/dL | [facility] | | | Protein | | | [facility] | | | | | | MEDICAL | | | | | | CENTER - | | | | | | LABORATORY | | + + + + + + | AST | 17 | 0 - 34 U/L | [facility] | | | | | | [facility] | | | | | | MEDICAL | | | | | | CENTER - | | | | | | LABORATORY | | + + + + + + | ALT | 14 | 10 - 49 U/L | [facility] [...] | | bulin Ratio | | | [facility] | | | | | | MEDICAL | | | | | | CENTER - | | | | | | LABORATORY | | + + + + + + | BUN/Creatin | 18.8 | | [facility] | | | ine Ratio | | | [facility] | | [...] [address] | [place] | [phone] | | [facility] | | [address] | | | - LABORATORY | | | | + + + + + CBC with Differential (12/11/2019 7:30 PM PST) + + + + + + | Component | Value | Ref Range | Performed | Pathologist | | | | | At | Signature | + + + + + + | White Blood | 7.0 | 4.0 - 11.0 K/uL | [facility] | | | Cells | | | [facility] | | | | | | MEDICAL | | | | | | CENTER - | | | | | | LABORATORY | | + + + + + + | Red Blood | 4.17 (L) | 4.30 - 5.70 | [facility] [...] | | | | | g/dL | [facility] | | | | | | MEDICAL | | | | | | CENTER - | | | | | | LABORATORY | | + + + + + + | Hematocrit | 37.8 (L) | 40.0 - 51.0 % | [facility] | | | | | | [facility] | | | | | | MEDICAL | | | | | | CENTER - | | | | | | LABORATORY | | + + + + + + | MCV | 90.6 | 83.0 - 101.0 fL | [facility] [...] + + + + | MCHC | 32.5 | 32.0 - 36.0 | [facility] | [...] + + + + | RDW-SD | 42.7 | 35.1 - 46.3 fL | [facility] | | | | | | [facility] | | | | | | MEDICAL | | | | | | CENTER - | | | | | | LABORATORY | | + + + + + + | Platelet | 204 | 140 - 440 K/uL | [facility] [...] + + + + | % | 54.6 | 45.0 - 82.0 % | [facility] | | | Neutrophils | | | [facility] | | | | | | MEDICAL | | | | | | CENTER - | | | | | | LABORATORY | | + + + + + + | % | 33.0 | 20.0 - 45.0 % | [facility] [...] + + + | % Immature | 0.3 | 0.0 - 0.4 % | [facility] | | | Granulocyte | | | [facility] | | | s | | | MEDICAL | | | | | | CENTER - | | | | | | LABORATORY | | + + + + + + | Absolute | 3.85 | 1.80 - 8.50 | [facility] | | | Neutrophils | | K/uL | [facility] | | | | | | MEDICAL | | | | | | CENTER - | | | | | | LABORATORY | | + + + + + + | Absolute | 2.32 | 0.60 - 3.20 | [facility] | | | Lymphocytes | | K/uL | [facility] | | | | | | MEDICAL | | | | | | CENTER - | | | | | | LABORATORY | | + + + + + + | Absolute | 0.41 | 0.00 - 1.00 | [facility] | [...] | 0.00 | 0.00 - 0.01 | PROVIDEYAJAIRAE | | | nRBC | | K/uL [...] [address] | MARTINE Agarwal | [phone] | | [facility] | | [address] | | | - LABORATORY | | | | + + + + + ECG 12 lead (12/11/2019 7:17 PM PST) + + + + + + | Component | Value | Ref Range | Performed | Pathologist | | | | | At | Signature | + + + + + + | VENTRICULAR | 55 | BPM | [facility] | | | RATE EKG | | | | | + + + + + + | ATRIAL RATE | 55 | BPM | [facility] | | + + + + + + | P-R | 144 | ms | [facility] | | | INTERVAL | | | | | + + + + + + | QRS | 88 | ms | [facility] | | | DURATION | | | | | + + + + + + | Q-T | 430 | ms | [facility] | | | INTERVAL | | | | | + + + + + + | Q-T | 411 | ms | [facility] | | | INTERVAL | | | | | | (CORRECTED) | | | | | + + + + + + | P WAVE AXIS | 11 | degrees | [facility] | | + + + + + + | QRS AXIS | 17 | degrees | [facility] | | + + + + + + | T AXIS | 10 | degrees | [facility] | | [...] of | | | | | | 02-DEC-2019 11:39,T wave | | | | | | inversion is now | | | | | | present in lead III and | | | | | | T wave flattening is now | | | | | | present in aVFConfirmed | | | | | | by NOREEN JACKSON MD | | | | | | ([id number]) on 12/12/2019 | | | | | | 6:26:20 AM | | | | + + [...] + | Diagnosis | + + | Pulmonary embolism, unspecified chronicity, unspecified pulmonary embolism type, | | unspecified whether acute cor pulmonale present (HCC) - Primary | + + documented in this encounter Administered Medications + +--------+ +-------+------+------+ | Medication Order | MAR | Action | Dose | Rate | Site | | | Action | Date | | | | + +--------+ +-------+------+------+ | apixaban (ELIQUIS) tablet 10 mg | Given | 12/11/19 | 10 mg | | | | 10 mg, Oral, ONCE, 12/11/19 | | 20 9:06 | | | | | at 2100, For 1 dose | | PM PST | | | | + +--------+ +-------+------+------+ +---+---+ | | | +---+---+ + +-------+ +--------+---+---+ | iohexol (OMNIPAQUE 350) 350 | Given | 12/11/19 | 70 mLs | | | | mg/mL injection 70 mL 70 mL, | | 20 7:42 | | | | | Intravenous, ONCE PRN, Other, | | PM PST | | | | | Starting 12/11/19 at 1937, For | | | | | | | 1 dose, Cat Scanner | | | | | | + +-------+ +--------+---+---+ +---+---+ | | | +---+---+ + +---------+ +--------+-------+---+ | sodium chloride 0.9% (NS) bolus | New Bag | 12/11/19 | 1,000 | 250 | | | 1,000 mL 1,000 mL, Intravenous, | | 20 7:33 | mLs | mL/hr | | | Administer over 4 Hours, ONCE, | | PM PST | | | | | 12/11/19 at 1900, For 1 dose | | | | | | + +---------+ +--------+-------+---+ +---+---+ | | | +---+---+ + +------+ +--------+-------+---+ | sodium chloride 0.9% (NS) bolus | Push | 12/11/19 | 35 mLs | 2100 | | | 35 mL 35 mL, Intravenous, | | 20 7:42 | | mL/hr | | | Administer over 1 Minutes, ONCE | | PM PST | | | | | PRN, for contrast study, Starting | | | | | | | 12/11/19 at 1937, For 1 dose, | | | | | | | May infuse at a different rate | | | | | | | per protocol., Cat Scanner | | | | | | + +------+ +--------+-------+---+ +---+---+ | | | +---+---+ documented in this encounter
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
--- OUTSIDE RECORDS SUMMARY | ~2020-07-13 | XMS | Encounter Summary ---
Demographics + + + | Address | [address] | | | [place] [address] | + + + | Home Phone | | + + + | Preferred Language | Unknown | + + + | Marital Status | Single | + + + | Voodoo Affiliation | Unknown | + + + | Race | White | + + + | Ethnic Group | Not or | + + + Author + + + | Author | [facility] | | | and [place] | + + + | Organization | [facility] | | | [...] | | | | | [place] [address] | | + + + + + Care Team Providers + +------+ + | Care Embedded Processor Name | Role | Phone | + +------+ + | Chance Dudley MD | PCP | | + +------+ + Encounter Details +--------+ + + + + | Date | Type | Department | Care Team | Description | +--------+ + + + + | 06/13/ | Hospital | [facility] | Chance Dudley, | | | 2012 | Encounter | MED CTR DI[facility] | [address] | | | | | [address] [place] | [place], [place] | | | | | [place] [address] | [address] | | | | | [phone] | | | +--------+ + + + [...] + + + +---------+ + + | ciprofloxacin | Take 1 tablet by | 28 | 0 | 06/05/20 | | | (CIPRO) 750 MG | mouth 2 times daily | tablet | | 13 | 3 | | tabletIndications: | for 14 days. | | | | | | Chronic wound of | | | | | | | extremity | | | | | | + + + +---------+ + + | clindamycin | Take 1 capsule by | 56 | 0 | 06/05/20 | | | (CLEOCIN) 300 MG | mouth 4 times daily | capsule | | 13 | 3 | | capsuleIndications: | for 14 days. For | | | | | | Chronic wound of | wound infection | | | | | | extremity | | | | | | + [...] [place] | | | | | | [id number] | | | | | | | | +--------+---------+ + + + documented as of this encounter Visit Diagnoses Not on filedocumented in this encounter"
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
--- OUTSIDE RECORDS SUMMARY | ~2020-07-13 | XMS | Encounter Summary ---
Demographics + + + | Address | [address] | | | [place] [address] | + + + | Home Phone [...] MANRIQUE | | | | | [place] [address] | | + + + + + Care Team Providers + +------+ + | Care Trimmer Sawyer Name | Role | Phone | + +------+ + | Chance Dudley MD | PCP | | + +------+ + Reason for Visit + + + | Reason | Comments | + + + | Arm Pain | left | + + + Encounter Details +--------+ + + + + | Date | Type | Department | Care Team | Description | +--------+ + + + + | 02/14/ | Emergency | [facility] | Radames Bruno, | Atypical chest pain | | 2019 - | | [facility] | MD [address] | (Primary Dx); | | | | CENTER [address] | [facility] [place] | Syncope, unspecified | | 02/15/ | | [place], [place] | [place] [address] | syncope type | | 2019 | | [address] | [phone] | | | | | [phone] | | | +--------+ + + + [...] + + + | Blood Pressure | 116/104 | 02/15/2020 9:39 PM | | | | | PDT | | + + + + + | Pulse | 67 | 02/15/2020 9:39 PM | | | | | PDT | | + + + + + | Temperature | - | - | | + + + + + | Respiratory Rate | 17 | 02/15/2020 9:39 PM | | | | | PDT | | + + + + + | Oxygen Saturation | 100% | 02/15/2020 9:39 PM | | | | | PDT | | + + + + + | Inhaled Oxygen | - | - | | | Concentration | | | | + + + + + | Weight | 108.9 kg (240 lb) | 02/15/2020 9:19 PM | | | | | PDT | | + + + + + | Height | 188 cm (6' 2") | 02/15/2020 9:19 PM | | | | | PDT | | + + + + + | Body Mass Index | 30.81 | 02/15/2020 9:19 PM | | | | | PDT [...] documented as of this encounter Discharge Instructions Radames Ortega MD - 02/15/2020No evidence of lung blood clot No evidence of heart attack Continue current medications Follow-up with primary care AttachmentsThe following attachments cannot be sent through Care Everywhere.Syncope, Causes of (Lithuanian)Chest Pain, Noncardiac (Lithuanian)documented in this encounter Medications at Time of [...] | 0 | | | | (MYCOSTATIN) 836615 | topically 2 times | | | [...] documented as of this encounter ED Notes Radames Bruno MD - 02/15/2020 9:22 PM PDTFormatting of this note might be different f rom the original. MERGED WITH [facility] Stiven Davila EMERGENCY DEPARTMENT ENCOUNTER NOTE [address] [place] [address] PCP:Chance Dudley MD CHIEF COMPLAINT Chief Complaint Patient presents with Arm Pain left HPI Stiven Davila is a 34 y.o. male who presents to the emergency department with right-s ided chest pain and right arm pain. This patient developed spontaneous onset of right side pain radiating to his right shoulder. He states this occurred while he was walking up a hil l tonight. He had 2 syncopal episodes as a result. He is fully alert and oriented at this time. He is providing his own history. He was brought to the ER by paramedics. No vomitin g or diarrhea. He still has some pain on the right side of his chest at this time. The epi sode occurred about an hour and 15 minutes before coming to the ER. He was recently evaluat ed for asthma exacerbation. He also has a history of pulmonary embolism. 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 Chewables. For post-bariatric surgery nystatin (MYCOSTATIN) 503609 UNIT/GM powder Apply 1 Application topically 2 [...] Merged History Encounter Raised by mom in [place], [place]. Father not involved, drug addict. Lives with mom and younger brother. Children: None Schooling: HS graduate, required specialized education plan. A couple courses in college. 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 Employment: Unemployed. Wants to work for "[employer] [facility]. He first needs to get in better shape. REVIEW OF SYSTEMS All systems reviewed and found negative except what is in the HPI PHYSICAL EXAM VITAL SIGNS: (initial vital signs): Pulse: 66 Resp: 21 SpO2: 100 % BP: 125/77 Body mass i ndex is 30.81 kg/m. Constitutional: Well developed, morbidly obese, mild acute distress, Non-toxic appearance. HENT: Normocephalic, Atraumatic, Bilateral external ears normal, Mucous membranes are mois t, Nasal mucosa is normal. Eyes: PERRL, EOMI, Conjunctiva normal, No discharge. Palpebral conjunctiva are pink. Neck: Normal range of motion, No tenderness, Supple, No stridor. Respiratory: Clear to auscultation bilaterally, No respiratory distress, No wheezing Chest: Mild tenderness on the right side chest around ribs 9 and 10 without crepitus, no s igns of trauma Cardiovascular: Normal heart rate, Normal rhythm, No murmurs appreciated. GI: Soft, Non tenderness, No peritoneal signs, No masses Extremities: Warm and well perfused, no edema, no joint swelling or deformity. Good ROM. Back: No CVAT, No tenderness of the thoracic or lumbar spine. Skin: Warm, Dry, No erythema, No induration, No rash. Neurologic: Alert & oriented x 3, No focal motor or sensory deficits. Speech is clear. G ait is normal. EKG Twelve-lead EKG shows normal sinus rhythm at 69 bpm. Good R wave progression. No patholog ic Q waves. No acute ST elevation or depression. [place] interval is 148. QRS duration is 86. QT corrected is 452. This is an unremarkable EKG. RADIOLOGY Portable chest x-ray no acute cardiopulmonary disease ED COURSE & MEDICAL DECISION MAKING Pertinent Labs & Imaging studies reviewed. (See chart for details) The patient was seen and examined shortly after arriving in the emergency department. Hist ory and physical were obtained, vital signs were noted. EKG is normal. Chest x-ray is norm al. Sats are 100% on room air. Troponin is undetectable. D-dimer is normal. Basic metabo lic panel is normal. CBC is unremarkable. He was monitored here in the ER. He ambulates w ithout difficulty. Atypical right-sided chest pain. Symptomatic outpatient treatment. Last Set of Vital Signs: Pulse: 67 Resp: 17 SpO2: 100 % BP: (!) 116/104 FINAL IMPRESSION 1. Atypical chest pain 2. Syncope, unspecified syncope type PLAN Follow-up Information Schedule an appointment as soon as possible for a visit with Chance Dudley MD. Specialty: Family Medicine Contact information: [address] [place] [address] Discharge Medication List as of 02/15/2020 11:40 PM Radames Bruno MD 02/16/20 0616 Kalpesh Gutierrez R N - 02/15/2020 9:19 PM PDTPt present the er co left arm and side pain. Pt sts he lifted a transmission at work today and felt a "pop" Pt sts increased pain With movement. Denies numbness or tingling. Limited movents. Radial pulses palpable. documented in this encounter Plan of Treatment [...] [place] | | | | | | [id number] | | | | | | | | +--------+---------+ + + + documented as of this encounter Procedures + +--------+ + + + | Procedure Name | Priori | Date/Time | Associated Diagnosis | Comments | | | ty | | | | + +--------+ + + + | TROPONIN I | STAT | 02/15/2020 | | Results for this | | | | 10:41 PM | | procedure are in the | | | | PDT | | results section. | + +--------+ + + + | D-DIMER | STAT | 02/15/2020 | | Results for this | | | | 10:41 PM | | procedure are in the | | | | PDT | | results section. | + +--------+ + + + | CBC WITH | STAT | 02/15/2020 | | Results for this | | DIFFERENTIAL | | 10:41 PM | | procedure are in the | | | | PDT | | results section. | + +--------+ + + + | BASIC METABOLIC | STAT | 02/15/2020 | | Results for this | | PANEL | | 10:41 PM | | procedure are in the | | | | PDT | | results section. | + +--------+ + + + | XR CHEST AP PORTABLE | STAT | 02/15/2020 | | Results for this | | | | 9:41 PM | | procedure are in the | | | | PDT | | results section. | + +--------+ + + + | ECG 12 LEAD | STAT | 02/15/2020 | | Results for this | | | | 9:33 PM | | procedure are in the | | | | PDT | | results section. | + +--------+ + + + documented in this encounter Results D-Dimer (02/15/2020 10:41 PM PDT) + + + + + + | Component | Value | Ref Range | Performed | Pathologist | | | | | At | Signature | + + + + + + | D-Dimer | 0.48Comment: This | <=0.50 ug/mL | [facility] | | | Quantitativ | quantitative D-Dimer | FEU | [facility] | | | e | assay has been evaluated | | MEDICAL | | | | for screening for | | CENTER - | | | | venous thrombotic | | LABORATORY | | | | disease, and may be | | | | | | useful in ruling out, | | | | | | but not ruling in | | | | | | disease. Values less | | | | | | than 0.50 ug/mL FEU | | | | | | (Fibrinogen Equivalent | | | | | | Units) have a negative | | | | | | predictive value of | | | | | | approximately 95% for | | | | | | ruling out large | | | | | | pulmonary emboli or | | | | | | proximal deep vein | | | | | | thrombosis. Distal DVT | | | | | | are not excluded. An | | | | | | elevated D-dimer can be | | | | | | present in patients with | | | | | | liver disease, | | | | | | , eclampsia, | | | | | | heart disease and some | | | | | | cancers among other | | | | | | conditions. The presence | | | | | | of rheumatoid factor at | | | | | | a level >50 IU/mL may | | | | | | falsely elevate the | | | | | | determined D-dimer | | | | | | levels. | | | | + + + + + + + + | Specimen | + + | Blood | + + + + + + + | Performing | Address | City/State/Zipcode | Phone Number | | Organization | | | | + + + + + | [facility] | [address] | [place] | [phone] | | [facility] | | [address] | | | - LABORATORY | | | | + + + + + Troponin I (02/15/2020 10:41 PM PDT) + + + + + [...] | | | | | | [employer] | | | | | [...] [address] | [place] | [phone] | | [facility] | | [address] | | | - LABORATORY | | | | + + + + + CBC with Differential (02/15/2020 10:41 PM PDT) + + + + + [...] + + + | Red Blood | 4.02 (L) | 4.30 - 5.70 | [facility] | | | Cells | | M/uL | [facility] | | | | | | MEDICAL | | | | | | CENTER - | | | | | | LABORATORY | | + + + + + + | Hemoglobin | 11.7 (L) | 13.5 - 18.0 | [facility] | | | | | g/dL | [facility] | | | | | | MEDICAL | | | | | | CENTER - | | | | | | LABORATORY | | + + + + + + | Hematocrit | 36.3 (L) | 40.0 - 51.0 % | [facility] | | | | | | [facility] | | | | | | MEDICAL | | | | | | CENTER - | | | | | | LABORATORY | | + + + + + + | MCV | 90.3 | 83.0 - 101.0 fL | [facility] | | | | | | [facility] | | | | | | MEDICAL | | | | | | CENTER - | | | | | | LABORATORY | | + + + + + + | MCH | 29.1 | 28.0 - 35.0 pg | [facility] | | | | | | [facility] | | | | | | MEDICAL | | | | | | CENTER - | | | | | | LABORATORY | | + + + + + + | MCHC | 32.2 | 32.0 - 36.0 | [facility] | [...] + + + + | RDW-SD | 42.9 | 35.1 - 46.3 fL | [facility] [...] + + + + | % | 50.3 | 45.0 - 82.0 % | [facility] | | | Neutrophils | | | [facility] | | | | | | MEDICAL | | | | | | CENTER - | | | | | | LABORATORY | | + + + + + + | % | 39.4 | 20.0 - 45.0 % | [facility] | | | Lymphocytes | | | [facility] | | | | | | MEDICAL | | | | | | CENTER - | | | | | | LABORATORY | | + + + + + + | % Monocytes | 5.5 | 4.0 - 12.0 % | [facility] [...] + + + + | Absolute | 4.25 | 1.80 - 8.50 | [facility] | | | Neutrophils | | K/uL | [facility] | | | | | | MEDICAL | | | | | | CENTER - | | | | | | LABORATORY | | + + + + + + | Absolute | 3.32 (H) | 0.60 - 3.20 | [facility] | [...] + | [facility] | [address] | [place] | [phone] | | [facility] | | [address] | | | - LABORATORY | | | | + + + + + Basic Metabolic Panel (02/15/2020 10:41 PM PDT) + + + + + [...] + + + | Anion Gap | 8 | 3 - 16 mmol/L | [facility] | | | | | | [facility] | | | | | | MEDICAL | | | | | | CENTER - | | | | | | LABORATORY | | + + + + + + | Glucose | 97 | 60 - 106 mg/dL | [facility] | | | | | | [facility] | | | | | | MEDICAL | | | | | | CENTER - | | | | | | LABORATORY | | + + + + + + | BUN | 11 | 9 - 23 mg/dL | [facility] | | | | | | [facility] | | | | | | MEDICAL | | | | | | CENTER - | | | | | | LABORATORY | | + + + + + + | Creatinine | 0.69 (L) | 0.70 - 1.30 | [facility] | [...] mL/min/1.73m2 | [facility] | | | [place] | RATE,ESTIMATED | | MEDICAL | | | | mL/min/1.63n5Pkra than | | CENTER - | | [...] + + + + | BUN/Creatin | 15.9 | | [facility] | | | ine [...] + | [facility] | [address] | [place] | [phone] | | [facility] | | [address] | | | - LABORATORY | | | | + + + + + XR Chest AP Portable (02/15/2020 9:41 PM PDT) + + | Specimen | + + | | + + + + + | Impressions | Performed At | + + + | No radiographic evidence for acute disease in chest. Dictated | [facility] | | and Signed by: Zeeshan Isbell MD Electronically signed: | | | 02/15/2020 9:44 PM | | + + + + + + | Narrative | Performed At | + + + | EXAM: XR CHEST AP PORTABLE dated 02/15/2020 9:32 PM HISTORY: | [facility] | | right side chest pain Comparison: 01/07/2020 TECHNIQUE: A | | | single portable view of the chest. FINDINGS: The lungs are | | | symmetrically aerated. They are clear. There are no large pleural | | | effusions. There is no pneumothorax. The cardiac and mediastinal | | | contours are not enlarged. No acute osseous abnormalities. | | + + + + + | Procedure Note | + + | Rudolph, Rad Results In - 02/15/2020 9:47 PM PDT EXAM: XR CHEST AP PORTABLE dated | | 02/15/2020 9:32 PMHISTORY: right side chest painComparison: 01/07/2020TECHNIQUE: A single | | portable view of the chest.FINDINGS:The lungs are symmetrically aerated. They are | | clear. There are no largepleural effusions. There is no pneumothorax. The cardiac and | | mediastinalcontours are not enlarged. No acute osseous abnormalities. IMPRESSION: No | | radiographic evidence for acute disease in chest.Dictated and Signed by: Zeeshan Hamilton | | MD Akilah Electronically signed: 02/15/2020 9:44 PM | | | |FINDINGS: | | | |The lungs are symmetrically aerated. They are clear. There are no large | |pleural effusions. There is no pneumothorax. The cardiac and mediastinal | |contours are not enlarged. No acute osseous abnormalities. | | | |IMPRESSION: | | | |No radiographic evidence for acute disease in chest. | | | |Dictated and Signed by: Zeeshan Isbell MD | | Electronically signed: 02/15/2020 9:44 PM | + + + +---------+ + + | Performing | Address | City/State/Zipcode | Phone Number | | Organization | | | | + +---------+ + + | [facility] | | | | + +---------+ + + ECG 12 lead (02/15/2020 9:33 PM PDT) + + + + + + | Component | Value | Ref Range | Performed | Pathologist | | | | | At | Signature | + + + + + + | VENTRICULAR | 69 | BPM | [facility] | | | RATE EKG | | | | | + + + + + + | ATRIAL RATE | 69 | BPM | [facility] | | [...] + + + + | Q-T | 422 | ms | [facility] | | | INTERVAL | | | | | + + + + + + | Q-T | 452 | ms | [facility] | | | INTERVAL | | | | | | (CORRECTED) | | | | | + + + + + + | P WAVE AXIS | 51 | degrees | [facility] | | + + + + + + | QRS AXIS | 12 | degrees | [facility] | | + + + + + + | T AXIS | 6 | degrees | [facility] | | + + + + + + | INTERPRETAT | Normal sinus | | [facility] | | | ION TEXT | rhythmMinimal voltage | | | | | | criteria for LVH, may be | | | | | | normal | | | | | | variantNonspecific T | | | | | | wave abnormality | | | | | | Inferior leadsWhen | | | | | | compared with ECG of | | | | | | 26-DEC-2019 02:03,No | | | | | | significant change was | | | | | | foundConfirmed by | | | | | | NOREEN JACKSON MD ([id number]) | | | | | | on 02/16/2020 7:19:49 AM | | | | + + [...] + | Diagnosis | + + | Atypical chest pain - Primary Other chest pain | + + | Syncope, unspecified syncope type | + + documented in this encounter
--- OUTSIDE RECORDS SUMMARY | ~2020-07-13 | XMS | Encounter Summary ---
Demographics + + + | Address | [address] | | | [place] [address] | + + + | Home Phone [...] Author + + + | Author | [facility] | | | and [place] | + + + | Organization | [facility] | | | [...] | | | | | [place] [address] | | + + + + + Care Team Providers + +------+ + | Care Weather Strip Mechanic Name | Role | Phone | + +------+ + | Chance Dudley MD | PCP | | + +------+ + Reason for Visit + +--------+ + | Reason | Onset | Comments | | | Date | | + +--------+ + | ED Follow-up | 02/20/ | | | | 2020 | | + +--------+ + Encounter Details +--------+ + + + + | Date | Type | Department | Care Team | Description | +--------+ + + + + | 02/20/ | Telephone | [facility] | Chance Dudley, | ED Follow-up | | 2020 | | MEDICINE [address] | [address] | | | | | [address] [place], | [place] | | | | | [place] [address] | [id number] | | | | | [phone] | | | +--------+ + + + [...] this encounter Miscellaneous Notes Telephone Encounter - Elodia Cabrales RN - 02/21/2020 7:42 PM PDT [facility] ED follow up call Admission Date: 02/15/20 AND 02/19/20 Discharge Date: 02/15/20 AND 02/19/20 Discharge Disposition: Home or Self Care Principle Discharge Diagnosis: 02/15/20 FINAL IMPRESSION 1. Atypical chest pain 2. Syncope, unspecified syncope type 02/19/20 FINAL IMPRESSION 1. Contusion of thoracic wall, unspecified area of thoracic wall, initial encounterAcute If unable to reach letter sent (if appropriate): Yes Any medications ordered this visit: YES Discharge Medication List as of 02/19/2020 6:48 PM START taking these medications Details cyclobenzaprine (FLEXERIL) 10 mg tablet Take 1 tablet by mouth 3 times daily as needed for Muscle spasms for up to 14 days.Disp-20 tablet, R-0, Normal Specialty referral: No Referral in place: No Has this patient been seen in the ED 5 or more times in the last 6 months: YES=6X Need case management to prevent more ED visits: YES Follow up needed: As needed Future Appts: No future appointments. 02/15/20 Discharge Instructions No evidence of lung blood clot No evidence of heart attack Continue current medications Follow-up with primary care 02/19/20 Discharge Instructions Use onjk-yay-qixolzx medications as needed. Follow-up with your primary care provider as n symone. Return for worsening symptoms. documented in this e ncounter Plan of Treatment +--------+---------+ + + + | Date | Type | Specialty | Care Team | Description | +--------+---------+ + + + | 07/22/ | Office | Family Medicine | Chance Dudley, | | 2019 | Visit | | [address] | | | | | | [place] | | | | | | [address] | | | | | | | | +--------+---------+ + + + documented as of this encounter Visit Diagnoses Not on filedocumented in this encounter"
--- OUTSIDE RECORDS SUMMARY | ~2020-07-13 | XMS | Encounter Summary ---
Demographics + + + | Address | [address] | | | [place] [address] | + + + | Home Phone [...] Author + + + | Author | [facility] | | | and [place] | + + + | Organization | [facility] | | | [...] [place] | | | | | [place] [address] | | + + + + + Care Team Providers + +------+ + | Care Cider Press Operator Name | Role | Phone | + +------+ + PCP | Unavailable | + +------+ + Encounter Details +--------+ + + + + | Date | Type | Department | Care Team | Description | +--------+ + + + + | 08/02/ | Hospital | [facility] | | | | 2000 | Encounter | [facility] | | | | | | [address] | | | | | | [place] | | | | | | [address] | | | | | | [phone] | | | +--------+ + + + [...]
--- OUTSIDE RECORDS SUMMARY | ~2020-07-13 | XMS | Encounter Summary ---
Demographics + + + | Address | [address] | | | [place] [address] | + + + | Home Phone [...] Author + + + | Author | [facility] | | | and [place] | + + + | Organization | [facility] | | | [...] | | | | | [place] [address] | | + + + + + Care Team Providers + +------+ + | Care Engineer Fishing Vessel Name | Role | Phone | + [...] | Chance Brewster MD | [address] | | | | | left | [address] | [place], | | | | | shoulder | [address]VE [place] | [place] | | | | | pain | [place] | [address] | | | | | Procedures | [address] | Phone: | | | | | MRI Shoulder | Phone: | [phone] | | | | | Left | [phone] | Fax: | | | | | Arthrogram w | Fax: | [phone] | | | | | Contrast | [phone] | | +--------+--------+ + + + + Reason for Visit Diagnostic/Screening (Routine) +--------+--------+ + + + + | Status | Reason | Specialty | Diagnoses / | Referred By | Referred To | | | | | Procedures | Contact | Contact | +--------+--------+ + + + + | Closed | | Radiology | Diagnoses | [place], | [facility] | | | | | Chronic | Chance Brewster MD | [address] | | | | | left | [address] | [place], | | | | | shoulder | AVE [place] | [place] | | | | | pain | [place], [place] | [address] | | | | | Procedures | [address] | Phone: | | | | | MRI Shoulder | Phone: | [phone] | | | | | Left | [phone] | Fax: | | | | | Arthrogram w | Fax: | [phone] | | | | | Contrast | [phone] | | +--------+--------+ + + + + Encounter Details +--------+ + + + + | Date | Type | Department | Care Team | Description | +--------+ + + + + | 09/03/ | Hospital | [facility] | Chance Dudley, | Chronic left | | 2016 | Encounter | MED CTR MRI [address] | shoulder pain | | | | [address] [place], | [place], [place] | | | | | [place] [address] | [address] | | | | | [phone] | | | +--------+ + + + [...] [place] | | | | | | [address] | | | | | | | [...] | radiographs July 06 TECHNIQUE: Following the [facility] | | intraarticular injection of a [...] [address] | [place] | [phone] | | [facility] | | [address] | | | - IMAGING | | | | + + + + + documented in this encounter Visit Diagnoses + + | Diagnosis | + + | Chronic left shoulder pain Pain in joint, shoulder region | + + documented in this encounter"
--- OUTSIDE RECORDS SUMMARY | ~2020-07-13 | XMS | Encounter Summary ---
Demographics + + + | Address | [address] | | | [place] [address] | + + + | Home Phone [...] Author + + + | Author | [facility] | | | and [place] | + + + | Organization | [facility] | | | [...] | | | | | [place] [address] | | + + + + + Care Team Providers + +------+ + | Care Program Scheduler Name | Role | Phone | + +------+ + | Chance Dudley MD | PCP | | + +------+ + Reason for Visit + +--------+ + | Reason | Onset | Comments | | | Date | | + +--------+ + | Medication Follow-up | 06/06/ | | | | 2020 | | + +--------+ + Encounter Details +--------+ + + + + | Date | Type | Department | Care Team | Description | +--------+ + + + + | 06/06/ | Telephone | [facility] | Nohemy Fisher, | Medication Follow-up | | 2019 | | [facility] | PharmD [address] | | | | | [address] | [facility], | | | | | [place], [place] | [place] [address] | | | | | [address] | [phone] | | | | | [phone] | | | +--------+ + + + [...] this encounter Miscellaneous Notes Telephone Encounter - Emory, Aimy, Superintendent Factory - 06/19/2020 3:30 PM PDTCalled patient to follow up on duloxetine 60 mg daily. Was unable to reach patient, left message to call back at [phone]. elephone Encounter - Nohemy Fisher PharmD - 06/17/2020 4:38 PM PDTCalling to follow up on STIVEN's Cymbalta medi cation. No answer, left message requesting call back at [facility] elephone Encounter - Nohemy Fisher PharmD - 06/06/2020 10:05 AM PDTCalling Stiven to follow up on Cymbalta initia tion. Spoke with his mother, Mabel, who states "So far so good." She says Stiven will be home thi s afternoon if I wanted to try back then to discuss further. elephone Encounter - Nohemy Fisher PharmD - 05/28 9:58 AM PDT----- Message from Chance Dudley MD sent at 05/23/2020 11:35 AM PDT --- -- Regarding: Cymbalta Note: this is a future dated email. Please review chart prior to contacting patient to chasidy e sure nothing substantial has changed or that this is not a redundant request. Let me know if you have any questions or concerns. Thanks. Will you please call Stiven and see if they are tolerating Cymbalta. They should have a follow -up appointment with me ~5 weeks after 05/23/20. If they have not scheduled follow-up, will you please help them schedule an appointment. Thanks! Saurabh Dudley MD documented in this [...] [place] | | | | | | [id number] | | | | | | | | +--------+---------+ + + + documented as of this encounter Visit Diagnoses Not on filedocumented in this encounter
--- OUTSIDE RECORDS SUMMARY | ~2020-07-13 | XMS | Encounter Summary ---
Demographics + + + | Address | [address] | | | [place] [address] | + + + | Home Phone [...] + | Author | [facility] | | | and [place] | + + + | Organization | [facility] | | [...] [place] | | | | | [place] [address] | | + + + + + Care Team Providers + +------+ + | Care Professor Of Social Work Name | Role | Phone | + +------+ + | Chance Dudley MD | PCP | | + +------+ + Reason for Referral Evaluate & Treat (Emergency) +--------+ + + + + + | Status | Reason | Specialty | Diagnoses / | Referred By | Referred To | | | | | Procedures | Contact | Contact | +--------+ + + + + + | Closed | Specialty | Plastic | Diagnoses | Sushant Polo Se | | | Services | Surgery | Closed | MD Sugar | Plastic | | | Required | | nondisplaced | [address] | Surgery [address] | | | | | fracture of | [place] [address] | | | | | neck of | [place], [place] | [place], | | | | | first | [address] | [place] [address] | | | | | metacarpal | Phone: | Phone: | | | | | bone of left | [phone] | [phone] | | | | | hand, | Fax: | Fax: | | | | | initial | [phone] | [phone] | | | | | encounter | | | +--------+ + + + + + Encounter Details +--------+ + + + + | Date | Type | Department | Care Team | Description | +--------+ + + + + | 07/04/ | Orders Only | [facility] | Sugar Polo MD | Closed nondisplaced | | 2019 | | SURGERY [address] | [address] [place] | fracture of neck of | | | | [place], [place] | [place] [address] | first metacarpal | | | | [address] | [phone] | bone of left hand, | | | | [phone] | | initial encounter | | | | | | (Primary Dx) | +--------+ + [...] Medicine | Chance Dudley, | | | 2020 | Visit | | MD [address] | | | | | | [place] | | | | | | [address] | | | | | | | | +--------+---------+ + + + + + +--------+ + + | Name | Type | Priori | Associated Diagnoses | Order Schedule | | | | ty | | | + + +--------+ + + | * [facility] | Outpatient | STAT | Closed | Ordered: 07/04/2019 | | Surgery - AMB | Referral | | nondisplaced | | | Referral | | | fracture of neck of | | | | | | first metacarpal | | | | | | bone of left hand, | | | | | | initial encounter | | + + +--------+ + + documented as of this encounter Visit Diagnoses + + | Diagnosis | + + | Closed nondisplaced fracture of neck of first metacarpal bone of left hand, initial | | encounter - Primary | + + documented in this encounter"
--- OUTSIDE RECORDS SUMMARY | ~2020-07-13 | XMS | Encounter Summary ---
Demographics + + + | Address | [address] | | | [place] [address] | + + + | Home Phone [...] Author + + + | Author | [facility] | | | and [place] | + + + | Organization | [facility] | | [...] | | | | | [place] [address] | | + + + + + Care Team Providers + +------+ + | Care Cold Patcher Name | Role | Phone | + [...] + | 05/07/ | Telephone | [facility] | Jennie Long, | Care [place] (diabetic | | 2020 | | [facility] | PT [address] | retinopathy) | | | | [address] | [place] | | | | | [place] | [address] | | | | | [address] | | | | | | [phone] | | | +--------+ + + + [...] no exam in media tab Patient's preferred senior php software developer office: unknown Called patient to discuss. Attempted [...] [place] | | | | | | [id number] | | | | | | | | +--------+---------+ + + + documented as of this encounter Visit Diagnoses Not on filedocumented in this encounter"
--- OUTSIDE RECORDS SUMMARY | ~2020-07-13 | XMS | Encounter Summary ---
Demographics + + + | Address | [address] | | | [place] [address] | + + + | Home Phone [...] + + + + + | Mabel Eisebnerg | ECON | [address] | | | | | [place] [address] | | + + + + + Care Team Providers + +------+ + | Care English Tutor Name | Role | Phone | + [...] + + | 07/05/ | Office | [facility] | Chance Dudley, | Closed fracture of | | 2019 | Visit | [facility] | [address] | multiple ribs of | | | | [address] | [place] | both sides, initial | | | | [place], [place] | [address] | encounter (Primary | | | | [address] | | Dx); Closed fracture | | | | [phone] | | of sternum, | | | [...] and never get in car if the van driver has been drinking alcohol or is [...] thumb MCP. Full ROM Full strength with scientific informatics leader, [place] Lymphadenopathy: He has no cervical adenopathy. [...] Additional communication delivered/planned Family/caregiver: Mom Specialists: via [employer]is Saurabh Dudley MD documented in this e [...] [place] | | | | | | [id number] | | | | | | | [...]
--- OUTSIDE RECORDS SUMMARY | ~2020-07-13 | XMS | Encounter Summary ---
Demographics + + + | Address | [address] | | | [place] [address] | + + + | Home Phone | | + + + | Preferred Language | Unknown | + + + | Marital Status | Single | + + + | Restorationism Affiliation | Unknown | + + + | Race | White | + + + | Ethnic Group | Not or | + + + Author + + + | Author | [facility] | | | and [place] | + + + | Organization | [facility] | | | and [place] | + + + | Address | Unknown | + + + | Phone | Unavailable | + + + Support + + + + + | Name | Relationship | Address | Phone | + + + + + | Mabel Eisenberg | ECON | [address] | | | | | [place] [address] | | + + + + + Care Team Providers + +------+ + | Care Roller Presser Operator Name | Role | Phone | [...] + + | 07/19/ | Office | [facility] | Nadia Claire, | Light-headed feeling | | 2019 | Visit | [facility] [place] | INTELLIGENCE GROUP SUPERVISOR [address] | (Primary Dx); | | | | [address] | [place] | Fatigue, unspecified | | | | [place] | [id number] | type | | | | [address] | | | | | | [phone] | | | +--------+---------+ + + + [...] about: All medicines you take, including prescription, pjpz-yyg-hsorzhq, herbs, and supplements Any other symptoms you [...] back, or jaw pain Date Last Reviewed: 09/28/201719993612-9885 [employer]. [address] [place] [address]. All righ ts reserved. This information is [...] stands up. This is been going on [facility] e he had his lab work done [...] has been changed since signin Order Audit Eugene nystatin (MYCOSTATIN) 130043 UNIT/GM powder (Taking) Apply 1 Application topically 2 time s daily. Number of times this order has been changed since signin Order Audit Eugene testosterone 12.5 mg/1.25 g actuation (1%) gel (Taking) Apply 4 Act topically Daily. Number of times this order has been changed since signin Order Audit Eugene Past Medical History He has a past [...] other family member; Substance abuse in his [facility]. Social History: Social History Socioeconomic History [...] Merged History Encounter Raised by mom in [place], [place]. Father not involved, drug addict. Lives with mom and younger brother. Children: None Schooling: HS graduate, required specialized education plan. A couple courses in college. 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 Employment: Unemployed. Wants to work for "[employer]." He completed the tra ining for it. [...] made to ensure accuracy; however, inadvertent computerized dispatch machine runner errors may be pre sent. 25 minute [...] [place] | | | | | | [address] | | | | | | | | +--------+---------+ + + + documented as of this encounter Visit Diagnoses + + | Diagnosis | + + | Light-headed feeling - Primary Dizziness and giddiness | + + | Fatigue, unspecified type | + + documented in this encounter
--- OUTSIDE RECORDS SUMMARY | ~2020-07-13 | XMS | Encounter Summary ---
Demographics + + + | Address | [address] | | | [place] [address] | + + + | Home Phone [...] | | | | | [place] [address] | | + + + + + Care Team Providers + +------+ + | Care Litigation Associate Name | Role | Phone | + +------+ + | Chance Dudley MD | PCP | | + +------+ + Reason for Visit + +--------+ + | Reason | Onset | Comments | | | Date | | + +--------+ + | Medication | 12/14/ | | | Management | 2020 | | + +--------+ + Encounter Details +--------+ + + + + | Date | Type | Department | Care Team | Description | +--------+ + + + + | 12/14/ | Telephone | [facility] | Chance Dudley, | Medication | | 2019 | | [facility] | [address] | Management | | | | [address] | [place] | | | | | [place], [place] | [address] | | | | | [address] | | | | | | [phone] | | | +--------+ + + + [...] Telephone Encounter - Shraddha Givens RN - 12/14/2019 4:16 PM [facility] sends a note back on warfarin script for clarification. From 12/12 chart note: Will increase warfarin to 7.5 mg nightly - Continue Lovenox twice daily until INR therapeutic - Greatly appreciate Nadia palacios Stefan's assistance - He was educated on PE, lovenox, warfarin - including diet, drug interactions, warning si gns. - warfarin (COUMADIN) 5 mg tablet; Take 1.5 tablets by mouth Daily for 89 days. Take 1 tabl et daily for 30 days. Dispense: 45 tablet; Refill: 2 Called patient and verified that he is taking 7.5 mg (1.5 tablets) per day. Think that possibly script was reordered from the ER And the "take 1 tablet daily for 30 d ays" wasn't removed. Pended script without he additional instructions for Nadia Claire's review. documented in this encounter Plan of Treatment [...] cor pulmonale present (HCC) | + + documented in this encounter
--- OUTSIDE RECORDS SUMMARY | ~2020-07-13 | XMS | Encounter Summary ---
Demographics + + + | Address | [address] | | | [place] [address] | + + + | Home Phone [...] Author + + + | Author | [facility] | | | and [place] | + + + | Organization | [facility] | | [...] | | | | | [place] [address] | | + + + + + Care Team Providers + +------+ + | Care Supervisor Sewing Department Name | Role | Phone | + +------+ + | Chance Dudley MD | PCP | | + +------+ + Encounter Details +--------+ + + + + | Date | Type | Department | Care Team | Description | +--------+ + + + + | 11/09/ | Patient | [facility] [place] [facility] | Chance Dudley, | PHST Chronic Health | | 2018 | Outreach | [facility]IC[facility] | [address] | Conditions | | | | [address] | [place] | | | | | [place] | [address] | | | | | [address] | | | | | | [phone] | | | +--------+ + + + [...] this encounter Miscellaneous Notes Telephone Encounter - PATTY GONZALEZ - 05/17/2019 9:54 AM PDTCare Opportunities have change d and will be addressed in a new encounter. elephone Encounter - PATTY HYMAN - 11/09/2018 12:45 PM PSTPatient identified through [employer] as having due serv ices. Test orders identified as signed in the patient's chart. Scorecard sent. (FLP,A1C, F erritin, Vitamin B-12, Folate, CMP) 12: 48 PM PSTdocumented in this encounter Plan of Treatment +--------+---------+ + + + | Date | Type | Specialty | Care Team | Description | +--------+---------+ + + + | 07/22/ | Office | Family Medicine | Chance Dudley, | | | 2019 | Visit | | MD [address] | | | | | | [place] | | | | | | [address] | | | | | | | | +--------+---------+ + + + documented as of this encounter Visit Diagnoses Not on filedocumented in this encounter"
--- OUTSIDE RECORDS SUMMARY | ~2020-07-13 | XMS | Encounter Summary ---
Demographics + + + | Address | [address] | | | [place] [address] | + + + | Home Phone [...] Author + + + | Author | [facility] | | | and [place] | + + + | Organization | [facility] | | | [...] [place] | | | | | [place] [address] | | + + + + + Care Team Providers + +------+ + | Care Cooler Man Name | Role | Phone | + +------+ + | Chance Dudley MD | PCP | | + +------+ + Reason for Visit + + + | Reason | Comments | + + + | Anticoagulation | | + + + Encounter Details +--------+ + + + + | Date | Type | Department | Care Team | Description | +--------+ + + + + | 12/27/ | Anti-coag | [facility] [place] [facility] | Stefan Corrigan, | Other acute | | 2020 | visit | CLINIC [address] | TRACTOR DISTRIBUTOR [address] | pulmonary embolism | | | | [place]VE [place] | [place] | without acute cor | | | | [address] | [address] | pulmonale (HCC) | | | | [phone] | | | +--------+ + + + [...] + + | Pulse | 78 | 12/27/2019 12:14 PM | | | | | PST | | + + + + + | Temperature | 36.1 C (97 F) | 12/27/2019 12:14 PM | | | | | PST [...] documented as of this encounter Progress Notes Stefan Corrigan ARNP - 12/27/2019 12:15 PM PSTFormatting of this note might be different f rom the original. [facility] Patient Name: Stiven [place]ila | Age: 34 y.o. | : 1985 | Medical Record Number:[id number] | Author: FLORENCE Araujo | Date of Encounter: 12/27/2019 Subjective: HPI: Anticoagulation: Patient here for followup of chronic anticoagulation. Indication: 1. Other acute pulmonary embolism without acute cor pulmonale (HCC) Patient Findings Positives: Change in medications Negatives: Signs/symptoms of thrombosis, Signs/symptoms of bleeding, Laboratory test err or suspected, Change in health, Change in alcohol use, Change in activity, Upcoming invasive procedure, Emergency department visit, Upcoming dental procedure, Missed doses, Extra doses , Change in diet/appetite, Hospital admission, Bruising, Other complaints Patient's medications, allergies, past medical, surgical, social and family histories were obtained and reviewed as appropriate. ROS: See HPI Objective: Pulse 78 | Temp 36.1 C (97 F) (Temporal) Physical Exam Constitutional: He is oriented to person, place, and time. He appears well-developed and we ll-nourished. Cardiovascular: Normal rate and regular rhythm. Pulmonary/Chest: Effort normal and breath sounds normal. He has no wheezes. He has no rales . Musculoskeletal: Normal range of motion. General: No tenderness, deformity or edema. Neurological: He is alert and oriented to person, place, and time. Skin: Skin is warm and dry. Anticoagulation Summary As of 12/27/2019 INR goal: 2.0-3.0 TTR: INR used for dosin.2! (12/27/2019) Warfarin maintenance plan: 0 mg every e; 10 mg (5 mg x 2) every Mon, Wed, Sat; 7.5 mg ( 5 mg x 1.5) all other days Weekly warfarin total: 52.5 mg Plan last modified: FLORENCE Gamino (12/27/2019) Next INR check: 12/31/2019 Target end date: Indefinite Indications Acute pulmonary embolism without acute cor pulmonale (HCC) [I26.99] Anticoagulation Episode Summary INR check location: Anticoagulation Clinic Preferred lab: Send INR reminders to: [facility] Comments: Assessment/Plan: 1. Other acute pulmonary embolism without acute cor pulmonale (HCC) - POCT PT/INR fingerstick See Anticoagulation Summary above. Warfarin schedule adjusted. [id number] Calendar and Anticoagulant instructions reviewed with the patient. Electronically signed by: FLORENCE Araujo 12/27/2019 at 12:23 PM Portions of this chart may have been created with [employer] voice recognition software. Occasi onal wrong-word or sound-alike substitutions may have occurred due to the inherent west itations of voice recognition software. Please read the chart carefully and recognize, using context, where these substitutions have occurred. documented in this encounter Plan of Treatment [...] | + +--------+ + + + | POC PT/INR | Routin | 12/27/2019 | Other acute | Results for this | | FINGERSTICK | e | 12:18 PM | pulmonary embolism | procedure are in the | | | | PST | without acute cor | results section. | | | | | pulmonale (HCC) | | + +--------+ + + + documented in this encounter Results POCT PT/INR fingerstick (12/27/2019 12:18 PM PST) + +---------+ + + + | Component | Value | Ref Range | Performed | Pathologist | | | | | At | Signature | + +---------+ + + + | INR, POC | 3.2 (A) | 0.9 - 1.2 | | | + +---------+ + + + + + | Specimen | + + | Blood | + + documented in this encounter Visit Diagnoses + + | Diagnosis | + + | Other acute pulmonary embolism without acute cor pulmonale (HCC) | + + documented in this encounter"
--- OUTSIDE RECORDS SUMMARY | ~2020-07-13 | XMS | Encounter Summary ---
Demographics + + + | Address | [address] | | | [place] [address] | + + + | Home Phone [...] Author + + + | Author | [facility] | | | and [place] | + + + | Organization | [facility] | | | and [...] | | | | | [place] [address] | | + + + + + Care Team Providers + +------+ + | Care Steel Analyst Name | Role | Phone | + +------+ + | Chance Dudley MD | PCP | | + +------+ + Reason for Visit + + + | Reason | Comments | + + + | Follow-up | had gastric sleeve done 09/14. | + + + | Medication Refill | needs a refill on his testosterone | + + + Encounter Details +--------+---------+ + + + | Date | Type | Department | Care Team | Description | +--------+---------+ + + + | 09/26/ | Office | [facility] | Chance Dudley, | Hypogonadism in male | | 2018 | Visit [facility] | [address] | (Primary Dx); | | | | [address] | [place] | [place] | | | | [place] | [id number] | syndrome; Type 2 | | | | [address] | | diabetes mellitus | | | | [phone] | | without | | | | | | complication, | | | | | | without long-term | | | | | | current use of | | | | | | insulin ([facility]); BMI | | | | | | 40.0-44.9, adult | | | | | | (HCC); Recurrent | | | | | | herpes labialis; S/P | | | | | | laparoscopic sleeve | | | | | | gastrectomy; Need | | | | | | for influenza | | | | | | vaccination | +--------+---------+ + + [...] + + + | Blood Pressure | 110/78 | 09/26/2018 11:10 AM | | | | | PDT | | + + + + + | Pulse | 58 | 09/26/2018 11:10 AM | | | | | PDT | | + + + + + | Temperature | 36.7 C (98 F) | 09/26/2018 11:10 AM | | | | | PDT | | + + + + + | Respiratory Rate | 16 | 09/26/2018 11:10 AM | | | | | PDT | | + + + + + | Oxygen Saturation | 100% | 09/26/2018 11:10 AM | | | | | PDT | | + + + + + | Inhaled Oxygen | - | - | | | Concentration | | | | + + + + + | Weight | 149.6 kg (329 lb | 09/26/2018 11:10 AM | | | | 12.9 oz) | PDT | | + + + + + | Height | - | - | | + + + + + | Body Mass Index | 44.73 | 07/03/2018 7:46 PM | | | | | PDT | | + + + + + documented in this encounter Patient Instructions Patient Instructions Chance Dudley MD - 09/26/2018 11:15 AM PDTKeep up the great work! Continue stage 2 diet and medications as directed by [facility] Please stop by the lab for blood work in mid-late October. You need to be fasting - nothi ng to eat or drink other than water or black coffee for 10 hours. No alcohol for 24 hours. Lab Hours: Tuesday-Tuesday 7 am to 5:[address] Tuesday ONLY @ [facility] 8 am to 4 pm documented in this encounter Progress Notes Lakia Daugherty LPN - 09/26/2018 11:15 AM PDTAfter obtaining informed consent, the immuni zation is given by Vic BALDWIN. tChance hendrix M D - 09/26/2018 11:15 AM PDT Subjective: Patient ID: Stiven Davila is a 33 y.o. male who is here today for Follow-up (had lorena golden sleeve done 09/14.) and Medication Refill (needs a refill on his testosterone) HPI He had laparoscopic cholecystectomy and sleeve gastrectomy on 09/[address] Isabel and Dr Lida mcdowell. Discharged from [facility] 09/15/18. He had 1 week post-op visit and has been in communic ation with services tech and is adhering to bariatric diet. Plan to continue stage 2 full li quid diet and transition to stage 3 on 10/28. He is taking omeprazole (sprinkles on jello) a s prescribed. Plan to continue for 3 months then weak off over 2 weeks. Plan to check labs 6 months post-op. He has lost 20 lbs since surgery. Stools are loose. No fever, concerns of wound infection, abdominal pain (not requiring pain medications - stopped after 3 doses), melena, hematochezia, melena. He ran out of testosterone ~2 weeks ago. Finds helpful - improved energy, weight loss, mus mukesh mass. He occasionally gets cold sores. Acyclovir helps. Had eye exam at [facility] within the last 3 months. Sensation in left hand is almost back to normal. No vision changes, CP, SOB, edema, polyuria, urinary frequency, nocturia. Patient's medications, allergies, past medical, surgical, social and family histories were obtained and reviewed as appropriate. Current Outpatient Prescriptions on File Prior to Visit Medication Sig Dispense Refill testosterone 12.5 mg/1.25 g actuation (1%) gel Apply 4 Act topically Daily. 75 g 2 Review of Systems Objective: BP 110/78 | Pulse 58 | Temp 36.7 C (98 F) (Temporal) | Resp 16 | Wt (!) 149.6 kg (3 29 lb 12.9 oz) | SpO2 100% | BMI 44.73 kg/m Physical Exam Constitutional: Very pleasant, well developed, NAD HENT: Mouth/Throat: Oropharynx is clear and moist. No oropharyngeal exudate. No oral sores today Eyes: No scleral icterus. Neck: Neck supple. No thyromegaly present. Cardiovascular: Normal rate, regular rhythm, normal heart sounds and intact distal pulses. Exam reveals no gallop and no friction rub. No murmur heard. Pulmonary/Chest: Breath sounds normal. No respiratory distress. He has no wheezes. He has n o rales. Abdominal: He exhibits no distension and no mass. There is no rebound and no guarding. Laparoscopic incisions well healed. Adhesive still in place. No erythema. Mild tenderness near larger right incision but no induration, fluctuance, mass, rebound Musculoskeletal: He exhibits no edema. Lymphadenopathy: He has no cervical adenopathy. Psychiatric: He has a normal mood and affect. His behavior is normal. Assessment & Plan: 1. 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 Symptomatically improved with testosterone. - Recheck testosterone levels after being back on testosterone for at least one month - DEXA not covered. Will have team investigate prior auth due to Klinefelter syndrome, hy pogonadism and Vit D Deficiency - testosterone 12.5 mg/1.25 g actuation (1%) gel; Apply 4 Act topically Daily. Dispense: 7 5 g; Refill: 2 - Testosterone, Total; Future - FU with Dr Vicente 3. Type 2 diabetes mellitus without complication, without long-term current use of insulin (HCC): A1c borderline at last check. Expect well controlled s/p weight loss and surgery. BP controlled. Due for LDL. Vaccines UTD today. Eye exam UTD - will request records. - Continue good work with diet, exercise, weight loss - Comprehensive Metabolic Panel; Future - Hemoglobin A1C; Future 4. BMI 40.0-44.9, adult s/p laparoscopic sleeve gastrectomy: [facility] records reviewed. Greatl y appreciate their assistance. He is adherent to plan. - FU with [place] in ~3 weeks - Advance diet as directed. Plan to continue stage 2 full liquid diet and transition to s tage 3 on 10/28. - omeprazole (sprinkles on jello) as prescribed. Plan to continue for 3 months then weak off over 2 weeks. - Plan to check labs 6 months post-op. 5. Recurrent herpes labialis - acyclovir (ZOVIRAX) 400 MG tablet; Take 1 tablet by mouth 5 times daily for 5 days. At rst signs of cold sore outbreak Dispense: 25 tablet; Refill: 2 He will cut up pills as di rected by his surgical team Flu vaccine today FU: 3 months Saurabh Dudley MD documented in this e [...] [place] | | | | | | [id number] | | | | | | | | +--------+---------+ + + + documented as of this encounter Results Hemoglobin A1C (07/05/2019 12:36 PM PDT) + +-------+ + + + | Component | Value | Ref Range | Performed | Pathologist | | | | | At | Signature | + +-------+ + + + | Hemoglobin | 5.8 | 4.3 - 6.0 % | [facility] | | | A1c | | | [facility] | | | | | | [facility] | | | | | | [facility] - | | | | | | LABORATORY | | + +-------+ + + + | Estimated | 120 | mg/dL | [facility] | | | Average | | | [facility] | | | Glucose | | | MEDICAL | | | [...] | + + + + + | [facility] | [address] | [place] | [phone] | | [facility] | | [id number] | | | - LABORATORY | | | | + + + + + documented in this encounter Visit Diagnoses + + | Diagnosis | + + | Hypogonadism in male - Primary | + + | Klinefelter syndrome Klinefelter's syndrome | + + | Type 2 diabetes mellitus without complication, without long-term current use of | | insulin (HCC) | + + | BMI 40.0-44.9, adult (HCC) Body Mass Index 40.0-44.9, adult | + + | Recurrent herpes labialis Herpes simplex without mention of complication | + + | S/P laparoscopic sleeve gastrectomy | + + | Need for influenza vaccination Need for prophylactic vaccination and inoculation | | against influenza | + + documented in this encounter"
--- OUTSIDE RECORDS SUMMARY | ~2020-07-13 | XMS | Encounter Summary ---
Demographics + + + | Address | [address] | | | [place] [address] | + + + | Home Phone [...] [place] | | | | | [place] [address] | | + + + + + Care Team Providers + +------+ + | Care Wardrobe Custodian Name | Role | Phone | + +------+ + | Chance Dudley MD | PCP | | + +------+ + Reason for Visit + + + | Reason | Comments | + + + | Shoulder Pain | left shoulder x6-12m, has been treated for in past | + + + Encounter Details +--------+---------+ + + + | Date | Type | Department | Care Team | Description | +--------+---------+ + + + | 07/06/ | Office | [facility] | Dann Irvin I, | Chronic left | | 2016 | Visit | [facility] [place] | PA-C [address] | shoulder pain | | | | [address] | [address] | (Primary Dx) | | | | [place], [place] | [place] [address] | | | | | [address] | [phone] | | | | | [phone] | | | +--------+---------+ + + + [...] + + + | Blood Pressure | 136/82 | 07/06/2016 3:58 PM | | | | | PDT | | + + + + + | Pulse | 78 | 07/06/2016 3:58 PM | | | | | PDT | | + + + + + | Temperature | 36.7 C (98 F) | 07/06/2016 3:58 PM | | | | | PDT | | + + + + + | Respiratory Rate | 17 | 07/06/2016 3:58 PM | | | | | PDT | | + + + + + | Oxygen Saturation | 98% | 07/06/2016 3:58 PM | | | | | PDT | | + + + + + | Inhaled Oxygen | - | - | | | Concentration | | | | + + + + + | Weight | 158.8 kg (350 lb) | 07/06/2016 3:58 PM | | | | | PDT | | + + + + + | Height | 185.4 cm (6' 1") | 07/06/2016 3:58 PM | | | | | PDT | | + + + + + | Body Mass Index | 46.18 | 07/06/2016 3:58 PM | | | | | PDT | | + + + + + documented in this encounter Patient Instructions Patient Instructions Dann Irvin PA-C - 07/06/2016 10:29 PM PDT Shoulder Pain with Uncertain Cause Shoulder pain can have many causes. Pain often comes from the structures that surround the shoulder joint. These are the joint capsule, ligaments, tendons, muscles, and bursa. Pain ca n also come from cartilage in the joint. Cartilage can become worn out or injured. It s im portant to know what s causing your pain so the health care provider can use the correct t reatment. But sometimes it s difficult to find the exact cause of shoulder pain. You may n eed to see a specialist (orthopedist). You may also need special tests such as a CT scan or MRI. The provider may need to use special tools to look inside the joint (arthroscopy). Shoulder pain can be treated with a sling or a device that keeps your shoulder from moving. You can take an anti-inflammatory medicine such as ibuprofen to ease pain. You may need to do special shoulder exercises. Follow-up with a specialist if the pain is severe or doesn t go away after a few weeks. Home care Follow these tips when caring for yourself at home: If a sling was given to you, leave it in place for the time advised by your health care provider. If you aren t sure how long to wear it, ask for advice. If the sling becomes loo se, adjust it so that your forearm is level with the ground. Your shoulder should feel well supported. Put an ice pack on the injured area for 20 minutes every 1 to 2 hours the first day. You can make your own ice pack by putting ice cubes in a plastic bag. Wrap the bag in a thin to wel. Continue with ice packs 3 to 4 times a day for the next 2 days. Then use the pack as ne eded to ease pain and swelling. You may use acetaminophen or ibuprofen to control pain, unless another pain medicine was prescribed.If you have chronic liver or kidney disease, talk with your health care provid er before using these medicines. Also talk with your provider if you ve had a stomach ulce r or GI bleeding. Shoulder pain may seem worse at night, when there is less to distract you from the pain. If you sleep on your side, try to keep weight off your painful shoulder. Propping pillows b ehind you may stop you from rolling over onto that shoulder during sleep. Shoulder joints can become stiff if left in a sling for too long. You should start range of motion exercises about 10 days after the injury. Talk with your provider to find out wha t type of exercises to do and how soon to start. You can take the sling off to shower or bathe. Follow-up care Follow up with your health care provider if you don t start to get better in the next 5 d ays. When to seek medical advice Call your health care provider right awayif any of these occur: Pain or swelling gets worseor continues for more than a few days Your hand or fingers become cold, blue, numb, or tingly Large amount of bruising on your shoulder or upper arm Difficulty moving your hand or fingers Weakness in your hand or fingers Your shoulder becomes stiff It feels like your shoulder is popping out You are less able to do your daily activities [id number] [employer]. [address] [place] [address]. All righ ts reserved. This information is not intended as a substitute for professional medical care. Always follow your healthcare professional's instructions. documented in this encounter Progress Notes Dann Irvin PA-C - 07/06/2016 4:43 PM PDT Subjective: Stiven Davila is a 31 y.o. male patient of Chance Dudley MD Chief Complaint: Shoulder Pain 31 yo male comes in accompanied by mother c/o recurrent left shoulder dislocation which riaz arently reduces by it self. He has been seen previously at [facility] where he was ev aluated and referred to orthopedic. He was scheduled but missed appt. Claims he has not been able to use affected shoulder/arm for long time Review of Systems Constitutional: Negative. HENT: Negative. Eyes: Negative. Respiratory: Negative. Cardiovascular: Negative. Gastrointestinal: Negative. Musculoskeletal: Negative. Positive for left shoulder pain Skin: Negative. Objective BP 136/82 mmHg | Pulse 78 | Temp(Src) 36.7 C (98 F) (Temporal) | Resp 17 | Ht 1.854 m ( 6' 1") | Wt 158.759 kg (350 lb) | BMI 46.19 kg/m2 | SpO2 98% Physical Exam Constitutional: He is oriented to person, place, and time. Vital signs are normal. He appea rs well-developed and well-nourished. He is cooperative. HENT: Head: Normocephalic and atraumatic. Right Ear: External ear normal. Left Ear: External ear normal. Eyes: Conjunctivae are normal. Neck: Neck supple. No tracheal tenderness present. No rigidity. No erythema and normal rang e of motion present. No thyroid mass and no thyromegaly present. Cardiovascular: Normal rate, regular rhythm, S1 normal, S2 normal and normal heart sounds. No murmur heard. Pulmonary/Chest: Effort normal and breath sounds normal. No stridor. He has no decreased br eath sounds. He has no wheezes. He has no rhonchi. Musculoskeletal: Pt keeps shoulder in a dropped position. There is localized tenderness at the AC joint wit h adduction of shoulder Neurological: He is alert and oriented to person, place, and time. He has normal strength. He displays a negative Romberg sign. Skin: Skin is warm and intact. Psychiatric: He has a normal mood and affect. His speech is normal and behavior is normal. Judgment and thought content normal. Cognition and memory are normal. Assessment And Plans Stiven was seen today for shoulder pain. Diagnoses and all orders for this visit: Chronic left shoulder pain Orders: - XR Shoulder Left 2 + Vw; Future Pt to f/u with PCP No Follow-up on file. Sooner prn. documented in thi s encounter Plan of Treatment +--------+---------+ + + + | Date | Type | Specialty | Care Team | Description | +--------+---------+ + + + | 07/22/ | Office | Family Medicine | Octavia, Chance Ney, | | | 2019 | Visit | | MD [address] | | | | | | [place] | | | | | | [id number] | | | | | | | | +--------+---------+ + + + documented as of this encounter Results XR Shoulder Left 2 + Vw (07/06/2016 5:12 PM PDT) + + | Specimen | + + | | + + + + + | Narrative | Performed At | + + + | LEFT SHOULDER: 07/06/2016 5:12 PM CLINICAL HISTORY: left shoulder | [facility] | | pain COMPARISON: None FINDINGS: AP, Grashey and outlet views | [facility] | | of the left shoulder. No fracture or focal bony abnormality. Joint | [facility] | | alignment is normal. No radiographic soft tissue abnormalities. Soft | - IMAGING | | tissues are radiographically normal. IMPRESSION - Negative study | | | of the left shoulder. Dictated and Signed by: Kyler Glynn MD | | | Electronically signed: 07/06/2016 6:20 PM | | + + + + + | Procedure Note | + + | Rudolph, Rad Results In - 07/06/2016 6:23 PM PDT LEFT SHOULDER: 07/06/2016 5:12 PM | | | | CLINICAL HISTORY: left shoulder pain | | | | COMPARISON: None | | | | FINDINGS: AP, Grashey and outlet views of the left shoulder. | | | | No fracture or focal bony abnormality. Joint alignment is normal. No | | radiographic soft tissue abnormalities. Soft tissues are radiographically | | normal. | | | | IMPRESSION - Negative study of the left shoulder. | | | | Dictated and Signed by: Kyler Glynn MD | | Electronically signed: 07/06/2016 6:20 PM | + + + + + + + | Performing | Address | City/State/Zipcode | Phone Number | | Organization | | | | + + + + + | [facility] | [address] | [place] | [phone] | | [facility] | | [id number] | | | - IMAGING | | | | + + + + + documented in this encounter Visit Diagnoses + + | Diagnosis | + + | Chronic left shoulder pain - Primary Pain in joint, shoulder region | + + documented in this encounter
--- OUTSIDE RECORDS SUMMARY | ~2020-07-13 | XMS | Encounter Summary ---
Demographics + + + | Address | [address] | | | [place] [address] | + + + | Home Phone | | + + + | Preferred Language | Unknown | + + + | Marital Status | Single | + + + | Druze Affiliation | Unknown | + + + [...] [place] | | | | | [place] [address] | | + + + + + Care Team Providers + +------+ + | Care Die Finisher Name | Role | Phone | + +------+ + | Chance Dudley MD | PCP | | + +------+ + Reason for Visit + + + | Reason | Comments | + + + | Pulmonary Embolism | 4 day follow up | + + + Encounter Details +--------+---------+ + + + | Date | Type | Department | Care Team | Description | +--------+---------+ + + + | 12/17/ | Office | [facility] | Nadia Claire, | Other acute | | 2020 | Visit | [facility] [place] | [facility] [address] | pulmonary embolism | | | | [address] | [place], [place] | without acute cor | | | | [place], [place] | [address] | pulmonale (HCC) | | | | [address] | | (Primary Dx); | | | | [phone] | | Aviva-Toro tear; | | | | | | Gross hematuria; | | | | | | Pulmonary [...] present | | | | | | (HCC) | +--------+---------+ + + + Social [...] + + + | Blood Pressure | 122/78 | 12/17/2019 11:01 AM | | | | | PST | | + + + + + | Pulse | 78 | 12/17/2019 11:01 AM | | | | | PST | | + + + + + | Temperature | 35.9 C (96.7 F) | 12/17/2019 11:01 AM | | | | | PST | | + + + + + | Respiratory Rate | 20 | 12/17/2019 11:01 AM | | | | | PST | | + + + + + | Oxygen Saturation | 97% | 12/17/2019 11:01 AM | | | | | PST | | + + + + + | Inhaled Oxygen | - | - | | | Concentration | | | | + + + + + | Weight | 124.1 kg (273 lb 9.5 | 12/17/2019 11:01 AM | | | | oz) | PST | | + + + + + | Height | - | - | | + + + + + | Body Mass Index | 36.1 | 12/02/2019 11:11 AM | | | [...] Instructions Patient Instructions Nadia Claire ARNP - 12/17/2019 11:15 AM PST INCREASE the warfarin to 2 pills (10 mg) every night. Continue to take the [...] a blood clot that has traveled to [facility]. The symptoms include: Chest pain Trouble breathing [...] a cut, or vagina Date Last Reviewed: 12/29/201619992771-8055 [employer]. [address] [place] [address], [place] [address]. All righ ts reserved. This information is [...] next PT/INR blood draw is due on ___Tuesday, December 17 (date) by _FLORENCE Cross. You will [...] stopping, starting, or changing any prescription or vrpx-ekh-enlepvs (OTC) medicines . This includes herbal medicines [...] products such as ginkgo, Q10, garlic, or Knox's wort 3. Don't make major changes in [...] nose or a cut, for example. A hcxaytj-elgp-vwhxzs period or bleeding between periods Coughing or throwing up blood or something that looks like coffee grounds Nausea, bloating,or diarrhea Bleeding hemorrhoids Dark red or brown urine Red or black tarry stools Red or rcowh-hfx-knfu marmolejo on the skin that get larger [...] your doctor right away or go to [facility]. Rash Itching Swelling Trouble swallowing or breathing [NOTE: This information topic may not include all directions, precautions, medical conditio ns, medicine/food interactions, and warnings for this medicine. Check with your doctor, nurs e, or pharmacist for any questions that you may have.] Date Last Reviewed: 04/28/201619997478-0715 [employer]. [address] [place] [address]. All righ ts reserved. This information is not intended as a substitute for professional medical care. Always follow your healthcare professional's instructions. documented in this encounter Progress Notes Nadia Claire ARNP - 12/17/2019 11:15 AM PSTFormatting of this note might be different fr om the original. Stiven Davila is a 34 y.o. male and patient of Chance Dudley MD Chief Complaint: Pulmonary Embolism (4 day follow up ) HPI Here for follow-up of pulmonary embolism. He started the Lovenox and warfarin 12/12/2019. He is currently taking 7.5 mg warfarin da cristin and has been at this dose for the last 4 days. Also injecting Lovenox every 12 hours. He is tolerating these medications. Says he "feels fine." No shortness of breath. Denies wheezing. No fever, not coughing up blood. No vomiting. No black bloody or tarry stool. No blood in t he urine. No other bleeding or bruising. "Everything seems fine now." Denies calf pain or swelling. Patient's medications, allergies, past medical, surgical, social and family histories were obtained and reviewed as appropriate. PREVENTIVE CARE/PRIOR VISITS Any recommendations from Health Maintenance: Preventative Services TOPIC LAST DONE NEXT DUE Adult Annual Wellness Visit 08/14/2015 Diabetic Foot Exam 03/27/2018 03/27/2019 Vaccine: Influenza 08/16/2019 Hemoglobin A1c Screening 07/05/2019 01/05/2020 Vaccine: Dtap/Tdap/Td 06/24/2019 06/24/2029 Diabetic Eye Exam 2005 Microalbumin Screening 06/26/2018 06/26/2019 Vaccine: Pneumococcal 19-64 03/27/2018 Immunization History Administered Date(s) Administered Hep B (PED/ADOL) 3 DOSE 08/02/2000, 12/22/2000, 01/17/2002 INFLUENZA PF 18 Y OR >,TRIVALENT RECOMBINANT 09/03/2013 INFLUENZA PF QUAD(PED/ADOL/ADULT),PSKT or VIAL 08/09/2016, 09/26/2018, 08/16/2019 MMR, 2 DOSE (PED/ADULT) 08/02/2000 PNEUMOCOCCAL POLYSACCHARIDE 23-VALENT (PPSV23) 03/27/2018 TDAP, (ADOL/ADULT) 05/14/2007, 11/28/2009, 05/27/2018, 06/24/2019 Allergies Allergen Reactions Cephalexin Shortness Of Breath and Vertigo Medications: Patient Reported Taking Dosage acyclovir (ZOVIRAX) 400 MG tablet (Taking) take 1 tablet by mouth five times a day AT FIRS T SIGNS OF COLD SORE OUTBREAK Number of times this order has been changed since signin Order [facility] [place] enoxaparin (LOVENOX) 120 mg/0.8 mL injection (Taking) Inject 0.8 mLs under the skin every 12 hours for 7 days. Number of times this order has been changed since signin [facility] [place] Multiple Vitamins-Minerals (BARIATRIC MULTIVITAMINS/IRON PO) (Taking) Take 1 tablet by nicki th Daily. Chewables. For post-bariatric surgery Number of times this order has been changed since signin [facility] [place] ondansetron (ZOFRAN ODT) 4 mg disintegrating tablet (Taking) Take 1 tablet by mouth every 8 hours as needed for Nausea or Vomiting. Number of times this order has been changed since signin [facility] [place] pantoprazole (PROTONIX) 40 mg tablet (Taking) Take 1 tablet by mouth 2 times daily (before meals) for 7 days, THEN 1 tablet every morning (before breakfast) for 90 days. Number of times this order has been changed since signin [facility] [place] testosterone 12.5 mg/1.25 g actuation (1%) gel (Taking) Apply 4 Act topically Daily. Number of times this order has been changed since signin [facility] [place] warfarin (COUMADIN) 5 mg tablet (Taking) Take 2 tablets by mouth Daily. Number of times this order has been changed since signin [facility] [place] warfarin (COUMADIN) 5 mg tablet (Taking/Discontinued) Take 1.5 tablets by mouth Daily for 89 days. 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 Past Surgical History He has a past surgical history that includes Elbow surgery (Left, 1988); Shoulder arthrosco py (Left, 10/08/2016); Cholecystectomy, laparoscopic (09/14/2018); Sleeve Gastroplasty (08/28); gastric surgery; and Upper gastrointestinal endoscopy (N/A, 12/03/2019). Family History: His family history includes Diabetes in an other family member; Substance abuse in his [facility] er. Social History: Social History Socioeconomic History Marital status: Single [...] Merged History Encounter Raised by mom in [place], [place]. Father not involved, drug addict. Lives with mom and younger brother. Children: None Schooling: HS graduate, required specialized education plan. A couple courses in college. 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 Employment: Unemployed. Wants to work for "[employer]." He completed the tra ining for it. He first needs to get in better shape. Review of Systems See HPI. Objective: Vitals: 12/17/19 1101 BP: 122/78 Pulse: 78 Resp: 20 Temp: 35.9 C (96.7 F) TempSrc: Temporal SpO2: 97% Weight: 124.1 kg (273 lb 9.5 oz) Physical Exam Constitutional: He is oriented to person, place, and time. He appears well-developed and we ll-nourished. No distress. Appropriately dressed and groomed HENT: Head: Normocephalic and atraumatic. Eyes: Conjunctivae are normal. Cardiovascular: Normal rate, regular rhythm and normal heart sounds. No murmur heard. Pulmonary/Chest: Effort normal and breath sounds normal. No respiratory distress. He has no wheezes. He has no rales. Musculoskeletal: General: No edema. Comments: No calf redness, tenderness or edema. Neurological: He is alert and oriented to person, place, and time. Skin: Skin is warm and dry. Psychiatric: He has a normal mood and affect. His behavior is normal. Nursing note and vitals reviewed. Results for orders placed or performed in visit on 12/17/19 POC Fingerstick INR Result Value Ref Range INR, POC 1.2 0.9 - 1.2 Instrument ID Assessment and plans: 1. Other acute pulmonary embolism without acute cor pulmonale (HCC) Zqllj-gs-lycc INR 1.2 today, PT 14.4. Increasing daily warfarin dose from 7.5 mg daily to 10 mg nightly. Says he has plenty of tablets on hand. He does have follow-up with Stefan clarke . Advised to keep this appointment. Advised to let all providers he sees now that he is on warfarin, as medications can affect levels. Keep consistent levels of vegetables in the diet. Reviewed warning signs. - warfarin (COUMADIN) 5 mg tablet; Take 2 tablets by mouth Daily. Dispense: 60 tablet; Ref ill: 2 Medication risks and benefits were reviewed in detail today with the patient who expresses understanding. Pt will call or return with problems or side effects. - POC Fingerstick INR 2. Aviva-Toro tear Continue to avoid alcohol and take PPI daily 3. Gross hematuria Resolved. Recheck UA as recommended by PCP in approximately 3 and half weeks. Follow-up: With PCP in 3 weeks as scheduled, sooner for new or worsening symptoms. Portions of this report were transcribed using voice recognition software. Every effort wa s made to ensure accuracy; however, inadvertent computerized environmental health safety engineer errors may be pre sent. documented in th is encounter Plan of Treatment +--------+---------+ + + + | Date | Type | Specialty | Care Team | Description | +--------+---------+ + + + | 07/22/ | Office | Family Medicine | Chance Dudley, | | 2019 | Visit | | [address] | | | | | | [place] | | | | | | [phone] | | | | | | | | +--------+---------+ + + + documented as of this encounter Procedures + +--------+ + + + | Procedure Name | Priori | Date/Time | Associated Diagnosis | Comments | | | ty | | | | + +--------+ + + + | POCT FINGERSTICK INR | Routin | 12/17/2019 | Other acute | Results for this | | | e | 11:38 AM | pulmonary embolism | procedure are in the | | | | PST | without acute cor | results section. | | | | | pulmonale (HCC) | | + +--------+ + + + documented in this encounter Results POC Fingerstick INR (12/17/2019 11:38 AM PST) + + + + + + | Component | Value | Ref Range | Performed | Pathologist | | | | | At | Signature | + + + + + + | INR, POC | 1.2Comment: 14.4 sec | 0.9 - 1.2 | [facility] | | | | | | [facility] | | | | | | [facility] | | | | | | [facility] | | + + + + + + | Instrument | | | [facility] | | | ID | | | [facility] | | | | | | [facility] | | | | | | [facility] | | + + + + + + + + | Specimen | + + | Blood | + + + + + + + | Performing | Address | City/State/Zipcode | Phone Number | | Organization | | | | + + + + + | [facility] | 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
--- OUTSIDE RECORDS SUMMARY | ~2020-07-13 | XMS | Encounter Summary ---
Demographics + + + | Address | [address] | | | [place] [address] | + + + | Home Phone [...] Author + + + | Author | [facility] | | | and [place] | + + + | Organization | [facility] | | [...] | | | | | [place] [address] | | + + + + + Care Team Providers + +------+ + | Care Band Cutting Machine Operator Name | Role | Phone | + +------+ + | Chance Dudley MD | PCP | | + +------+ + Reason for Visit + +--------+ + | Reason | Onset | Comments | | | Date | | + +--------+ + | TCM - Hosp FU | 12/06/ | | | | 2020 | | + +--------+ + Encounter Details +--------+ + + + + | Date | Type | Department | Care Team | Description | +--------+ + + + + | 12/06/ | Telephone | [facility] | Elodia Cabrales, | TCM - Hosp FU | | 2019 | | MEDICINE [address] | RN | | | | | [place], | | | | | | [place] [address] | | | | | | [phone] | | | +--------+ + + + [...] Telephone Encounter - Lakia Daugherty LPN - 12/06/2019 5:05 PM PSTCalled and left a [employer] email message for patient to call back. Called and spoke with patient's mom. She states that he seems to be fine right now. She tegan l have him call first thing in the morning if he is having any problems. elephone Encounter - Chance Dudley MD - 12/06/2019 4:54 PM PSTIf he is SOB - let's have him follow-up wit h us tomorrow. I want him to have labs prior. If he has fever, significant shortness of breath, chest pain, recurrent bloody vomit, black tarry stool - he needs to be evaluated tonight. Thanks! Saurabh Dudley MD elephone Encounter - Elodia Cabrales RN - 12/06/2019 2:28 PM PSTFormatting of this note might be different f rom the original. SITUATION Transitional Care Management for follow-up on discharge from: Inpatient Acute Hospital =[facility] Eligible for TCM Billing LOS [id number]? DISCHARGING PHYSICIAN: Anival Hightower MD Patient questions/concerns needing provider review: Stiven STATES THAT HE NOTICED LAST NIGHT THAT HE FELT LIKE HE COULDN'T CATCH HIS BREATH AT TIME S. HE SAID IT HAPPENED AT REST AND ON EXERTION. 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 SONYA ORELLANA ON Dec. Learning disability S/P laparoscopic sleeve gastrectomy ASSESSMENT General: How are you doing since you returned home?: Patient states, "I'M OK" HE SAYS HE IS BEING [place] REFUL ABOUT WHAT HE EATS BECAUSE "I DON'T WANT TO GO THROUGH THAT AGAIN". HE STILL HAS "A L ITTLE" UPPER ABDOMINAL PAIN ON THE RIGHT SIDE AT THE RIB AREA. MENTIONED ABOVE A NEW PROBLEM STARTED LAST NIGHT, WHERE HE IS HAVING TROUBLE CATCHING HI S BREATH AT TIMES AT REST AND ON EXERTION. HE DENIES FEVER, WHEEZING, COUGHING.I I ENCOURAGE D HIM TO GO TO THE ER IF HAVING TO CATCH HIS BREATH WAS HAPPENING CONSISTENTLY. HE IS LIVING UP AT [facility] NOW WITH HIS MOTHER Did you receive discharge instructions? YES Do you have any questions about the instructions? NO Patient Reported Review of Symptoms: (documentation by exception) shortness of breath/dyspnea on exertion Diet: Diet restrictions: None Medication Literacy: Were you able to bean picker your medications after discharge? YES Discharge Medications New Medications Details ondansetron 4 mg disintegrating tablet Take 1 tablet by mouth every 8 hours as needed for Nausea or Vomiting. aka: ZOFRAN ODT pantoprazole 40 mg tablet Take 1 tablet by mouth 2 times daily (before meals) for 7 days, THEN 1 tablet every morn ing (before breakfast) for 90 days. aka: PROTONIX Start: December 04, 2019 Reviewed all medications/supplements and any changes? YES Changed Medications Details acyclovir 400 MG tablet take 1 tablet by mouth five times a day AT FIRST SIGNS OF COLD SORE OUTBREAK What changed: Another medication with the same name was removed. Continue taking this medi cation, and follow the directions you see here. aka: ZOVIRAX Do you manage your own medications? YES Patient understands the purpose of the medications: YES Patient understands when to take the medications: YES What questions do you have questions regarding your medications? NONE Medication Management Interventions: NONE NEEDED AT THIS TIME Discharge needs: None Receives help from: relative or family member-MOTHER RECOMMENDATION Follow-up appointment with: Office Visit Extended with Chance Dudley MD Tuesday 3:00 PM CONFIRMED APPOINTMENT WITH STIVEN Future Appointments Date Time Provider Department Center 12/11/2019 3:00 PM Chance Dudley MD [facility] 01/02/2020 9:30 AM FLORENCE Griffith [facility] Any other Specialists, Out-patient Therapy or Diagnostics/Labs: NONE Patient Education: You were admitted with vomiting, concern for bleeding. The scope of your stomach showed anju e irritation from vomiting, but there was no active bleeding. Please take pantoprazole twice daily for 7 days, then once daily for 3 months Patient was advised to please bring in all medications to the visit: NO NOT NEEDED Informant verbalized understanding. No learning barriers noted. documented in this e ncounter Plan of Treatment +--------+---------+ + + + | Date | Type | Specialty | Care Team | Description | +--------+---------+ + + + | 07/22/ | Office | Family Medicine | Chance Dudley, | | | 2019 | Visit | | MD [address] [address] | | | | | | [place] | | | | | | [id number] | | | | | | | | +--------+---------+ + + + documented as of this encounter Visit Diagnoses Not on filedocumented in this encounter
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
--- OUTSIDE RECORDS SUMMARY | ~2020-07-13 | XMS | Encounter Summary ---
Demographics + + + | Address | [address] | | | [place] [address] | + + + | Home Phone | | + + + | Preferred Language | Unknown | + + + | Marital Status | Single | + + + | Holiness Affiliation | Unknown | + + + [...] [place] | | | | | [place] [address] | | + + + + + Care Team Providers + +------+ + | Care District Home Economics Agent Name | Role | Phone | + [...] Closed | | Radiology | Diagnoses | Linda, | [facility] | | | | | Closed | Satni | [address] | | | | | fracture of | MD [place]en[place] | [place], | | | | | first | [address] | [place] | | | | | metacarpal | [place] | [address] | | | | | bone of left | [place], [place] | Phone: | | | | | hand with | [phone] | [phone] | | | | | ligament | Phone: | Fax: | | | | | tear with | [phone] | [phone] | | | | | routine | Fax: | | | | | | healing, | [phone] | | | | | | subsequent | | | | | | | encounter | | | | | | | Procedures | | | | | | | MRI Hand | | | | | | | Left wo | | | | | | | Contrast | | | +--------+--------+ + + + + Reason for Visit Diagnostic/Screening (Routine) +--------+--------+ + + + + | Status | Reason | Specialty | Diagnoses / | Referred By | Referred To | | | | | Procedures | Contact | Contact | +--------+--------+ + + + + | Closed | | Radiology | Diagnoses | Linda, | [facility] | | | | | Closed | Santi | [address] | | | | | fracture of | MD Keenan | Ashvin [place], | | | | | first | [address] | [place] | | | | | metacarpal | [place] | [address] | | | | | bone of left | [place] | Phone: | | | | | hand with | [phone] | [phone] | | | | | ligament | Phone: | Fax: | | | | | tear with | [phone] | [phone] | | | | | routine | Fax: | | | | | | healing, | [phone] | | | | | | subsequent | | | | | | | encounter | | | | | | | Procedures | | | | | | | MRI Hand | | | | | | | Left wo | | | | | | | Contrast | | | +--------+--------+ + + + + Encounter Details +--------+ + + + + | Date | Type | Department | Care Team | Description | +--------+ + + + + | 08/17/ | Hospital | [facility] | Santi Mckeon | Closed fracture of | | 2019 | Encounter | [facility] MRI [address] | [place], MD [address] | first metacarpal | | | | [address] [place], | [address] [place] | bone of left hand | | | | [place] [address] | [place] [address] | with ligament tear | | | | [phone] | [phone] | with routine | | | | | | healing, subsequent | | | | | | encounter | +--------+ + + + + [...] | 0 | | | | (MYCOSTATIN) [id number] | topically 2 times | | | | | | UNIT/GM powder | daily. | | | | | + + + +---------+ + + | acyclovir | Take 400 mg by mouth | | 0 | | | | (ZOVIRAX) 400 MG | 5 times daily. | | | | 0 | | tablet | | [...] | | | | | | | [place] | | | | | | | [...] [place] | | | | | | [address] | | | | | | | | +--------+---------+ + + + documented as of this encounter Procedures + +--------+ + + + | Procedure Name | Priori | Date/Time | Associated Diagnosis | Comments | | | ty | | | | + +--------+ + + + | MRI HAND LEFT WO | Routin | 08/17/2019 | Closed fracture of | Results for this | | CONTRAST | e | 12:59 PM | first metacarpal | procedure are in the | | | | PDT | bone of left hand | results section. | | | | | with ligament tear | | | | | | with routine | | | | | | healing, subsequent | | | | | | encounter | | + +--------+ + + + documented in this encounter Results MRI Hand Left wo Contrast (08/17/2019 12:59 PM PDT) + + | Specimen | + + | | + + + + + | Narrative | Performed At | + + + | TECHNIQUE: MRI of the left hand with sequences to includeaxial | [facility] | | proton density, sagittal proton density, coronal proton density, | | | coronal T1, coronal STIR, coronal T2, and 3-dimensional VIBE. | | | CLINICAL INFORMATION: Possible ulnar collateral ligament injury thumb | | | MP COMPARISON: Radiographs dated 05/27/2018 FINDINGS: | | | TENDONS: The flexor and extensor tendons appear intact. | | | LIGAMENTS: There is a high-grade tear at the distal margin of the 1st | | | metacarpophalangeal joint ulnar collateral ligament. Normal | | | relationship of the ulnar collateral ligament and adductor | | | aponeurosis. The radial collateral ligament appears intact. BONES | | | AND JOINTS: There is no fracture, bone erosion, bone marrow edema, or | | | bone lesion. Minimal bone marrow edema at the base of the 1st | | | proximal phalanx, ulnar margin. NEUROVASCULAR STRUCTURES: No | | | focal abnormality appreciated. OTHER FINDINGS: Mild subcutaneous | | | edema adjacent to the torn ulnar collateral ligament. | | | IMPRESSION - High-grade tear at the distal aspect of the 1st MCP joint | | | ulnar collateral ligament. Dictated and Signed by: Randy | | | MD Romel Electronically signed: 08/17/2019 2:58 PM | | + + + + + | Procedure Note | + + | Rudolph, Rad Results In - 08/17/2019 3:01 PM PDT | | TECHNIQUE: MRI of the left hand with sequences to includeaxial proton density, | | sagittal proton density, coronal proton density, coronal T1, coronal STIR, | | coronal T2, and 3-dimensional VIBE. | | | | CLINICAL INFORMATION: Possible ulnar collateral ligament injury thumb MP | | | | COMPARISON: Radiographs dated 05/27/2018 | | | | FINDINGS: | | | | TENDONS: The flexor and extensor tendons appear intact. | | | | LIGAMENTS: There is a high-grade tear at the distal margin of the 1st | | metacarpophalangeal joint ulnar collateral ligament. Normal relationship of the | | ulnar collateral ligament and adductor aponeurosis. The radial collateral | | ligament appears intact. | | | | BONES AND JOINTS: There is no fracture, bone erosion, bone marrow edema, or bone | | lesion. Minimal bone marrow edema at the base of the 1st proximal phalanx, ulnar | | margin. | | | | NEUROVASCULAR STRUCTURES: No focal abnormality appreciated. | | | | OTHER FINDINGS: Mild subcutaneous edema adjacent to the torn ulnar collateral | | ligament. | | | | | | IMPRESSION - High-grade tear at the distal aspect of the 1st MCP joint ulnar | | collateral ligament. | | | | Dictated and Signed by: Randy Urena MD | | Electronically signed: 08/17/2019 2:58 PM | + + + +---------+ + [...] encounter | + + documented in this encounter"
--- OUTSIDE RECORDS SUMMARY | ~2020-07-13 | XMS | Encounter Summary ---
Demographics + + + | Address | [address] | | | [place] [address] | + + + | Home Phone [...] | | | | | [place] [address] | | + + + + + Care Team Providers + +------+ + | Care Fire Lieutenant Name | Role | Phone | + +------+ + | Chance Dudley MD | PCP | | + +------+ + Encounter Details +--------+ + + + + | Date | Type | Department | Care Team | Description | +--------+ + + + + | 05/30/ | Hospital | [facility] | Chance Dudley, | SOB (shortness of | | 2020 | Encounter | [facility] | [address] | breath); Mild | | | | FUNCTION [address] | [place], [place] | intermittent asthma | | | | [place], | [address] | without complication | | | | [place] [address] | | | | | | [phone] | | | +--------+ + + + [...] + + +---------+ + + | albuterol 2.5 mg/3 | Take 3-6 mLs by | 100 | 0 | 04/08/20 | | | mL nebulizer | nebulization every 4 | vial | | 20 | | | solutionIndications: | hours as needed for | | | | | | Mild intermittent | Wheezing or | | | | | | asthma without | Shortness of Breath. | | | | | | complication | | | | | | + [...] + + + +---------+ + + | DULoxetine | Take 1 capsule by | 90 | 0 | 05/23/20 | | | (CYMBALTA) [address] | mouth Daily Start | capsule | | 20 | | | capsuleIndications: | once 30 mg pills | | | | | | Anxiety | completed. To help | | | | | | | anxiety, pain. | | | | | + + [...] | 0 | | | | (MYCOSTATIN) [id number] | topically 2 times | | | [...] + + + +---------+ + + | Respiratory | Nebulizer, mask, | 1 each | 0 | 04/08/20 | | | Therapy Supplies | tubing to be used | | | 20 | | | (NEBULIZER/TUBING/MO | with albuterol. | | | | | | UTHPIECE) | | | | | | | KITIndications: Mild | | | | | | | intermittent asthma | | | | | | | without | | | | | | | complication | | | | | | + + + +---------+ + + | testosterone 12.5 | Apply 4 Act | 75 g | 2 | 04/08/20 | | | mg/1.25 g actuation | topically Daily. | | | 20 | | | (1%) gelIndications: | | | | | | | Klinefelter | | | | | | | syndrome, | | | | | | | Hypogonadism in male | | | | | | + + + +---------+ + + documented as of this encounter Procedure Notes Madison Tavarez MD - 05/30/2020 9:00 AM PDTAssociated Order(s): PFT PULMONARY FUNCTION TESTING ORDERSProcedure(s): PFT PULMONARY FUNCTION TESTING ORDERSPre-Procedure Diagnose(s): SOB (shortness of breath); Mild intermittent asthma without complication PULMONARY FUNCTION TESTING SPIROMETRY: The FVC was 3.95 L or 68 % of predicted. The FEV1 was 3.42 L or 75 % of predict ed. FEV1/FVC ratio was 86 %. LUNG VOLUMES: The total lung capacity was 4.86 L or 66 % of predicted. The residual volume was 0.69 L or 39 % of predicted. RV/TLC ratio was 14 % of predicted. DIFFUSION CAPACITY: The diffusion capacity was 30.7 mL/mmHg per minute or 72 % of predicted . IMPRESSION: Spirometry is consistent with reduced FVC and FEV1. However, FEV1/FVC ratio is within normal limits. There is no definitive evidence of obstructive physiology. Lung volu me testing is consistent with moderate restrictive physiology. Diffusion capacity is mildly reduced and is corrected for measured hemoglobin. Test performed: 05/30/2020 Electronically signed by: Madison Tavarez MD, 06/09/2020 10:31 AM PDT [facility] Madison Tavarez MD at 0 06/09/2020 10:33 AM PDTdocumented in this encounter Plan of [...] [place] | | | | | | [id number] | | | | | | | [...] + + documented in this encounter Results Pulmonary function test full [...] MD, 06/09/2020 10:31 | | | AM [facility] | | |IMPRESSION: Spirometry is consistent [...] | |Electronically signed by: Madison Tavarez MD, 06/09/2020 10:31 AM | | |PDT | | |[facility] | | + + + documented in this encounter Visit Diagnoses + + | Diagnosis | + + | SOB (shortness of breath) Shortness of breath | + + | Mild intermittent asthma without complication Unspecified asthma | + + documented in this encounter"
--- OUTSIDE RECORDS SUMMARY | ~2020-07-13 | XMS | Encounter Summary ---
Demographics + + + | Address | [address] | | | [place] [address] | + + + | Home Phone [...] + + + | Author | [facility] | | | and [place] | + + + | Organization | [facility] | | [...] | | | | | [place] [address] | | + + + + + Care Team Providers + +------+ + | Care Clinical Haematologist Name | Role | Phone | + +------+ + | Chance Dudley MD | PCP | | + +------+ + Reason for Visit + +--------+ + | Reason | Onset | Comments | | | Date | | + +--------+ + | Care Coordination | 12/03/ | | | | 2020 | | + +--------+ + Encounter Details +--------+ + + + + | Date | Type | Department | Care Team | Description | +--------+ + + + + | 12/03/ | Telephone | [facility] | Chance Dudley, | Care Coordination | | 2019 | | MEDICINE [facility] | [address] | | | | | [address] | [place] | | | | | [place] | [address] | | | | | [address] | | | | | | [phone] | | | +--------+ + + + [...] Telephone Encounter - Enid Watson RN - 12/03/2019 7:39 AM PSTFormatting of thi s note might be different from the original. Care Conference with In Patient RNCS for patient admitted to the hospital. Reviewed admission diagnosis, plan of care and discharge plan. Hospital follow up appointment scheduled with pcp. Will follow for Transitions Care Management when discharged. Future Appointments Date Time Provider Department [place] 12/11/2019 3:00 PM Chance Dudley MD [facility] [place] [facility] documented in this encounter Plan of Treatment +--------+---------+ + + + | Date | Type | Specialty | Care Team | Description | +--------+---------+ + + + | 07/22/ | Office | Family Medicine | Chance Dudley, | | 2019 | Visit | | MD [address] | | | | | | [place] | | | | | | [id number] | | | | | | | | +--------+---------+ + + + documented as of this encounter Visit Diagnoses Not on filedocumented in this encounter"
--- OUTSIDE RECORDS SUMMARY | ~2020-07-13 | XMS | Encounter Summary ---
Demographics + + + | Address | [address] | | | [place] [address] | + + + | Home Phone | | + + + | Preferred Language | Unknown | + + + | Marital Status | Single | + + + | Uatsdin Affiliation | Unknown | + + + | Race | White | + + + | Ethnic Group | Not or | + + + Author + + + | Author | [facility] | | | and [place] | + + + | Organization | [facility] | | | [...] | | | | | [place] [address] | | + + + + + Care Team Providers + +------+ + | Care Commercial Helicopter Pilot Name | Role | Phone | + [...] Description | +--------+--------+ + + + | 05/29/ | Refill | [facility] [place] [facility] | Chance Dudley, | Medication Refill | | 2020 | | MEDICINE [place] | [address] | | | | | [address] | [place] | | | | | [place], [place] | [address] | | | | | [address] | | | | | | [phone] | | | +--------+--------+ + + + [...] [place] | | | | | | [address] | | | | | | | | +--------+---------+ + + + documented as of this encounter Visit Diagnoses + + | Diagnosis | + + | Anxiety Anxiety state, unspecified | + + documented in this encounter"
--- OUTSIDE RECORDS SUMMARY | ~2020-07-13 | XMS | Encounter Summary ---
Demographics + + + | Address | [address] | | | [place] [address] | + + + | Home Phone | | + + + | Preferred Language | Unknown | + + + | Marital Status | Single | + + + | Cheondoism Affiliation | Unknown | + + + | Race | White | + + + | Ethnic Group | Not or | + + + Author + + + | Author | [facility] | | | and [place] | + + + | Organization | [facility] | | | [...] | | | | | [place] [address] | | + + + + + Care Team Providers + +------+ + | Care Felt Hooker Name | Role | Phone | + [...] + | 06/25/ | Telephone | [facility] | Chance Dudley, | Care Coordination | | 2019 | | MEDICINE [facility] | [address] | | | | | [address] | [place] | | | | | [place] | [address] | | | | | [address] | | | | | | [phone] | | | +--------+ + + + [...] Encounter - Enid Watson RN - 06/25/2019 7:48 AM PDTFormatting of thi s note might be different from the original. Care Conference with In Patient RNCS for patient admitted to the hospital. Reviewed admission diagnosis, plan of care and discharge plan. Hospital follow up appointment scheduled with pcp. Will follow for Transitions Care Management when discharged. Future Appointments Date Time Provider Department [place] 07/05/2019 11:30 Chance Dudley MD [facility] Second chart on file. ER admit is on chart [id number]. documented in this encounter Plan of Treatment [...]
--- OUTSIDE RECORDS SUMMARY | ~2020-07-13 | XMS | Encounter Summary ---
Demographics + + + | Address | [address] | | | [place] [address] | + + + | Home Phone [...] | | | | | [place] [address] | | + + + + + Care Team Providers + +------+ + | Care Tube Former Operator Name | Role | Phone | [...] + | 06/19/ | Telephone | [facility] | Cash Dudley, | Appointment | | 2012 | | MEDICINE [place] | [address] | | | | | [address] | [place], [place] | | | | | [place], [place] | [address] | | | | | [address] | | | | | | [phone] | | | +--------+ + + + [...] call but then he hung up. Asked front man to call patient.Electr onically signed by Samantha Taveras LPN at 06/21/2013 3:37 PM PDTTelephone Encounter - Raul Foster 06/20/2013 9:10 AM PDTCalled the patient and left a message to call back.Kwasi limay signed by Raul Fostre at 06/20/2013 9:13 AM PDTTelephone Encounter - Cash Dudley MD - 06/19/2013 6:01 PM PDTDo you mind calling Stiven and checking in on him. Please ask him to reschedule. Ideally would like a time that he can also meet with Corine or Florinda to discu ss his prediabetes. Thanks, Saurabh Dudley MD elephone Encounter - Cash Dudley MD - 06/19/2013 6:00 PM PDTMessage copied by CASH DUDLEY on [facility] 2012 1800 ------ Message from: EDIN GILLETTE Created: [facility] Jun 19, 2013 3351 Regarding: No show 06/19/13 : [address] [...] [place] | | | | | | [id number] | | | | | | | | +--------+---------+ + + + documented as of this encounter Visit Diagnoses Not on filedocumented in this encounter"
--- OUTSIDE RECORDS SUMMARY | ~2020-07-13 | XMS | Encounter Summary ---
Demographics + + + | Address | [address] | | | [place] [address] | + + + | Home Phone [...] | | | | | [place] [address] | | + + + + + Care Team Providers + +------+ + | Care Golf Player Assistant Name | Role | Phone | + +------+ + | Chance Dudley MD | PCP | | + +------+ + Reason for Visit + +--------+ + | Reason | Onset | Comments | | | Date | | + +--------+ + | Appointment Question | 05/02/ | | | | 2020 | | + +--------+ + Encounter Details +--------+ + + + + | Date | Type | Department | Care Team | Description | +--------+ + + + + | 05/02/ | Telephone | [facility] | Chance Dudley, | Appointment Question | | 2020 | | MEDICINE [place] | [address] | | | | | [address] | [place] | | | | | [place] | [address] | | | | | [address] | | | | | | [phone] | | | +--------+ + + + [...] this encounter Miscellaneous Notes Telephone Encounter - Virgie Swan, Caustic Room Operator - 05/08/2020 12:13 PM PDTlvm to give our office a call back ele phone Encounter - Christopher Zimmemran Medical Assistant - 05/06/2020 2:01 PM PDTCalled artem mars, left voice mail message to have patient return call to clinic regarding provider mess age. P DTTelephone Encounter - Christopher Zimmerman Medical Assistant - 05/02/2020 3:55 PM PDTCal led Patient to assist in getting patient in touch with pulmonary lab. No answer left message asking for a return call. elephone Encounter - Lakia Daugherty LPN - 05/02/2020 3:55 PM PDTmychart message sent to patientElectronically signed by Lakia Daugherty LPN at 0 3:55 PM PDTTelephone Encounter - Vesta Alan RN - 05/02/2020 3:43 PM PDTSending message to clinical team and yellow pool to see if they can get in touch with patient. Elect ronically signed by Vesta Alan, RN at 05/02/2020 3:44 PM PDTTelephone Encounter - Cachorro Bhakta - 05/02/2020 2:46 PM PDTPulmonary lab called stating that patient has not been scheduled due to attempting to reach patient two times and patient has not respond ed to messages. Please advise. documented in this encounter Plan of Treatment +--------+---------+ + + + | Date | Type | Specialty | Care Team | Description | +--------+---------+ + + + | 07/22/ | Office | Family Medicine | Chance Dudley, | | | 2019 | Visit | | MD [address] | | | | | | [place] | | | | | | [address] | | | | | | | | +--------+---------+ + + + documented as of this encounter Visit Diagnoses Not on filedocumented in this encounter"
--- OUTSIDE RECORDS SUMMARY | ~2020-07-13 | XMS | Encounter Summary ---
Demographics + + + | Address | [address] | | | [place] [address] | + + + | Home Phone [...] + + + | Author | [facility] | | | and [place] | + + + | Organization | [facility] [...] | | | | | [place] [address] | | + + + + + Care Team Providers + +------+ + | Care Logger Name | Role | Phone | + +------+ + | Chance Dudley MD | PCP | | + +------+ + Reason for Visit + +--------+ + | Reason | Onset | Comments | | | Date | | + +--------+ + | Medication Prior | 02/28/ | testosterone | | Authorization | 2018 | | + +--------+ + Encounter Details +--------+ + + + + | Date | Type | Department | Care Team | Description | +--------+ + + + + | 02/28/ | Telephone | [facility] | Chance Dudley, | Medication Prior | | 2018 | | [facility] | [address] | Authorization | | | | [address] | [place] | ([facility] ) | | | | [place] | [address] | | | | | [address] | | | | | | [phone] | | | +--------+ + + + [...] this encounter Miscellaneous Notes Telephone Encounter - Juanita Jurado LPN - 02/28/2018 5:08 PM PDTReceived approval for p atients testosterone gel. Called patients mother and notified her. Called Catherinered Chu and not ified Amalia. Gabriela Moss - Juanita Jurado LPN - 02/28/2018 4:04 PM PDTReceived prior authorization re quest: Insurance name: [employer] phone: [phone] Medication and Strength: Testosteron 12.5 mg/1.25 g 1% gel Directions: Apply 4 actuations topically daily Quantity: 75 grams Diagnosis : Klinefelter syndrome Q98.4, Hypogonadism in male E29.1 Pharmacy: [facility] [place] [phone] Prior medications tried: New start Submitted through cover my meds documented in this e ncounter Plan of Treatment +--------+---------+ + + + | Date | Type | Specialty | Care Team | Description | +--------+---------+ + + + | 07/22/ | Office | Family Medicine | Chance Dudley, | | | 2019 | Visit | | MD [address] | | | | | | [place] | | | | | | [address] | | | | | | | | +--------+---------+ + + + documented as of this encounter Visit Diagnoses Not on filedocumented in this encounter"
--- OUTSIDE RECORDS SUMMARY | ~2020-07-13 | XMS | Encounter Summary ---
Demographics + + + | Address | [address] | | | [place] [address] | + + + | Home Phone [...] [address] [place] | | | | | [place] [address] | | + + + + + Care Team Providers + +------+ + | Care Organ Teacher Name | Role | Phone | [...] | | | | CENTER [address] | [facility] [place] | Syncope, unspecified | | 02/15/ | | [place], [place] | [place] [address] | syncope type | | 2019 | | [address] | [phone] | | | | | [phone] | | | +--------+ + + + [...] be sent through Care Everywhere.Syncope, Causes of (Syriac)Chest Pain, Noncardiac (Syriac)documented in this encounter Medications at Time of [...] | 0 | | | | (MYCOSTATIN) 763204 | topically 2 times | | | [...] might be different f rom the original. [facility] [place] EMERGENCY DEPARTMENT ENCOUNTER NOTE [address] [place] [id number] PCP:Chance Dudley MD CHIEF COMPLAINT Chief Complaint [...] History: Procedure Laterality Date CHOLECYSTECTOMY, LAPAROSCOPIC 09/14/2018 [facility] at time of sleeve gastrectomy ELBOW SURGERY Left 1988 Left elbow-pins put in GASTRIC SURGERY gastric sleeve SHOULDER ARTHROSCOPY Left 10/08/2016 Procedure: Left Shoulder Arthroscopy w/ Labral Repair and Capsular Shift; Surgeon: Candie Murguia DO; Location: [facility] MAIN OR SLEEVE GASTROPLASTY 09/14/2018 [facility] UPPER GASTROINTESTINAL ENDOSCOPY N/A 12/03/2019 Procedure: EGD; Surgeon: Keren Luna MD; Location: [facility] MEDICAL PROCEDURE UNIT CURRENT MEDICATIONS STATISTICAL CONSULTANT Home Medications Medication Sig acyclovir (ZOVIRAX) 400 [...] ly. Chewables. For post-bariatric surgery nystatin (MYCOSTATIN) 073536 UNIT/GM powder Apply 1 Application topically 2 [...] Merged History Encounter Raised by mom in [place], [place]. Father not involved, drug addict. Lives with mom and younger brother. Children: None Schooling: HS graduate, required specialized education plan. A couple courses in college. 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 Employment: Unemployed. Wants to work for [employer] He completed the [employer] for it. He first needs to get [...] waves. No acute ST elevation or depression. NH interval is 148. QRS duration is 86. [...] information: [address] [place] [address] Discharge Medication List as of 02/15/2020 11:40 [...] [place] | | | | | | [address] | | | | | | | [...] | 0.48Comment: This | <=0.50 ug/mL | [facility] | | | Quantitativ | quantitative [...] [address] | [place] | [phone] | | [facility] | | [address] | | | - LABORATORY | | [...] | | | | | | [employer] | | | | | [...] [address] | [place] | [phone] | | [facility] | | [address] | | | - LABORATORY | | [...] + | [facility] | [address] | [place] | [phone] | | [facility] | | [address] | | | - LABORATORY | | [...] mL/min/1.73m2 | [facility] | | | [place] | RATE,ESTIMATED | | MEDICAL | | | | mL/min/1.01q8Onxb than | | CENTER - | | [...] + | [facility] | [address] | [place] | [phone] | | [facility] | | [address] | | | - LABORATORY | | [...] | | | | NOREEN JACKSON MD ([id number]) | | | | | | on [...]
--- OUTSIDE RECORDS SUMMARY | ~2020-07-13 | XMS | Encounter Summary ---
Demographics + + + | Address | [address] | | | [place] [address] | + + + | Home Phone | | + + + | Preferred Language | Unknown | + + + | Marital Status | Single | + + + | Yazidi Affiliation | Unknown | + + + | Race | White | + + + | Ethnic Group | Not or | + + + Author + + + | Author | [facility] | | | and [place] | + + + | Organization | [facility] | | | and [...] | | | | | [place] [address] | | + + + + + Care Team Providers + +------+ + | Care Test Consultant Name | Role | Phone | + +------+ + | Chance Dudley MD | PCP | | + +------+ + Reason for Visit + +--------+ + | Reason | Onset | Comments | | | Date | | + +--------+ + | Referral Question | 05/26/ | | | | 2020 | | + +--------+ + Encounter Details +--------+ + + + + | Date | Type | Department | Care Team | Description | +--------+ + + + + | 05/26/ | Telephone | [facility] [place] [facility] | Chance Dudley, | Referral Question | | 2019 | | MEDICINE [place] | [address] | | | | | [address] | [place] | | | | | [place] | [address] | | | | | [address] | | | | | | [phone] | | | +--------+ + + + [...] Encounter - Lakia Daugherty LPN - 05/26/2020 1:40 PM PDTIla Kralman reached ou t. She will leave a message for Amparo that the original order has the information on it. We w ill close this note for now unless more information is needed. elephone Encounter - Sun Pereira - 2019 12:12 PM PDTReceived a call from Ashlee in PFT and stated the issue is not the referral th ey are needing more clarification on the order. They are needing to know what kind of pulmon gisell test needs to be done.. Ashlee can be reached at [phone] signed by Sun Pereira at 05/26/2020 12:13 PM PDTTelephone Encounter - Lakia Daugherty LPN - 2019 10:10 AM PDTCalled and left a voicemail message for Amparo in PFT's lab. There is alread y a current referral that is still good dated, 04/08/2020. Asking for clarification why thi s one isn't acceptable. Asked that she return the phone call so we aren't duplicating the work. documented in this encounter Plan of Treatment +--------+---------+ + + + | Date | Type | Specialty | Care Team | Description | +--------+---------+ + + + | 07/22/ | Office | Family Medicine | Chance Dudley, | | 2019 | Visit | | [address] | | | | | | [place] | | | | | | [address] | | | | | | | | +--------+---------+ + + + documented as of this encounter Visit Diagnoses Not on filedocumented in this encounter"
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
--- OUTSIDE RECORDS SUMMARY | ~2020-07-13 | XMS | Encounter Summary ---
Demographics + + + | Address | [address] | | | [place] [address] | + + + | Home Phone | | + + + | Preferred Language | Unknown | + + + | Marital Status | Single | + + + | Judaism Affiliation | Unknown | + + + [...] [address] | | | | | [place] [address] | | + + + + + Care Team Providers + +------+ + | Care Coffee Farmer Name | Role | Phone | + [...] anemia | | 2018 | | [facility] | [address] | | | | | [address] | [place] | | | | | [place] | [address] | | | | | [address] | | | | | | [phone] | | | +--------+ + + + [...] | Office | Family Medicine | Chance Dduley, | | | 2019 | Visit | | MD [address] [facility] [facility] | | | | | | [place] | | | | | | [phone] | | | | | | | [...] + | [address] | [address] | [place] | [phone] | | [facility] | | [address] | | | - LABORATORY | | [...] [address] | [place] | [phone] | | [facility] | | [address] | | | - LABORATORY | | [...] [address] | [place] | [phone] | | [facility] | | [address] | | | - LABORATORY | | [...] [address] | [place] | [phone] | | [facility] | | [address] | | | [facility] | | [...] + + + | [facility] | [address] | [place] | [phone] | | [facility] | | [address] | | | [place] | | | | + + + + + documented in this encounter Visit Diagnoses + + | Diagnosis | + + | Microcytic anemia Iron deficiency anemia, unspecified | + + documented in this encounter"
--- OUTSIDE RECORDS SUMMARY | ~2020-07-13 | XMS | Encounter Summary ---
Demographics + + + | Address | [address] | | | [place] [address] | + + + | Home Phone | | + + + | Preferred Language | Unknown | + + + | Marital Status | Single | + + + | Jehovah'S Witness Affiliation | Unknown | + + + | Race | White | + + + | Ethnic Group | Not or | + + + Author + + + | Author | [facility] | | | and [place] | + + + | Organization | [facility] | | [...] | | | | | [place] [address] | | + + + + + Care Team Providers + +------+ + | Care Tobacco Classer Name | Role | Phone | + [...] | | | | | | [place] [address] | | | | | | [phone] | | | +--------+ + + + [...] 12/06/2019 5:05 PM PSTCalled and left a Telljaic email message for patient to call back. [...] follow-up on discharge from: Inpatient Acute Hospital =[facility] Eligible for TCM Billing LOS [id number]? DISCHARGING PHYSICIAN: Anival Hightower MD Patient questions/concerns [...] HAPPENING CONSISTENTLY. HE IS LIVING UP AT [facility] NOW WITH HIS MOTHER Did you receive discharge instructions? YES Do you have any questions about the instructions? 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 YES Discharge Medications [...] 12/11/2019 3:00 PM Chance Dudley MD [facility] 01/02/2020 9:30 AM FLORENCE Griffith [facility] Any other Specialists, Out-patient Therapy or [...] [place] | | | | | | [id number] | | | | | | | | +--------+---------+ + + + documented as of this encounter Visit Diagnoses Not on filedocumented in this encounter
--- OUTSIDE RECORDS SUMMARY | ~2020-07-13 | XMS | Encounter Summary ---
Demographics + + + | Address | [address] | | | [place] [address] | + + + | Home Phone | | + + + | Preferred Language | Unknown | + + + | Marital Status | Single | + + + | Orthodoxy Affiliation | Unknown | + + + | Race | White | + + + | Ethnic Group | Not or | + + + Author + + + | Author | [facility] | | | and [place] | + + + | Organization | [facility] | | | [...] [address] | | | | | [place] [address] | | + + + + + Care Team Providers + +------+ + | Care Inspector Insulation Name | Role | Phone | + [...] | Specialty | Orthopedic | Diagnoses | [facility], [facility] | | | Services | Surgery | Chronic | Chance Brewster MD | Orthopedic | | | Required | | left | [address] | | | | shoulder | [address] [place] | [address] | | | | | pain | [place], [place] | [place], | | | | | Glenoid | [address] | [place] [address] | | | | | labrum tear, | Phone: | Phone: | | | | | left, | [phone] | [phone] | | | | | subsequent | Fax: | Fax: | | | | | encounter | [phone] | [phone] | | | | | Recurrent | | | | | | | dislocation, | | | | | | | left | | | | | | | shoulder | | | +--------+ + + + + + Reason for Visit +---------+--------+ + | Reason | Onset | Comments | | | Date | | +---------+--------+ + | Results | 09/03/ | | | | 2015 | | +---------+--------+ + Encounter Details +--------+ + + + + | Date | Type | Department | Care Team | Description | +--------+ + + + + | 09/03/ | Telephone | [facility] | Chance Dudley, | Results | | 2015 | | MEDICINE [place] | [address] | | | | | [address] | [place], [place] | | | | | [place], [place] | [address] | | | | | [address] | | | | | | [phone] | | | +--------+ + + + [...] Telephone Encounter - Sujatha Chaparro RN - 09/07/2016 2:35 PM PDTPatient returns call. Gave him message from Dr. Dudley. Patient verbalized understanding. elephone Encounter - Samantha Taveras LPN - 09/06/2016 2:22 PM PDTCalled patient and left a message to call back. elephone Encounter - Samantha Taveras LPN - 09/03/2016 4:31 PM PDTCalled patient and left a message to call back. elephone Encounter - Chance Dudley MD - 09/03/2016 1:20 PM PDTWill you please let Stiven know that he likely had a significant anterior dislocation of his shoulder which tore the labrum of his shoulder . I am not certain he needs surgery, but given he continues to have frequent dislocations o f his shoulder - I do want him to see the orthopedic surgeon. If he does not hear from thejuan r office by Tuesday, he should follow-up with us. Also please remind him that he needs to have his blood drawn between 8 and 10 AM. He does NOT need to fast. Thanks, Saurabh Dudley MD documented in this [...] [place] | | | | | | [id number] | | | | | | | | +--------+---------+ + + + + + +--------+ + + | Name | Type | Priori | Associated Diagnoses | Order Schedule | | | | ty | | | + + +--------+ + + | * [facility] [place] | Outpatient | Routin | Chronic left | Ordered: 09/03/2016 | | Orthopedic Surgery - | Referral | e | shoulder pain | | | AMB Referral | | | Glenoid labrum tear, | | | | | | left, subsequent | | | | | | encounter Recurrent | | | | | | dislocation, left | | | | | | shoulder | | + + +--------+ + + documented as of this encounter Visit Diagnoses + + | Diagnosis | + + | Chronic left shoulder pain - Primary Pain in joint, shoulder region | + + | Glenoid labrum tear, left, subsequent encounter | + + | Recurrent dislocation, left shoulder | + + documented in this encounter"
--- OUTSIDE RECORDS SUMMARY | ~2020-07-13 | XMS | Encounter Summary ---
Demographics + + + | Address | [address] | | | [place] [address] | + + + | Home Phone [...] Author + + + | Author | [facility] | | | and [place] | + + + | Organization | [facility] | | | [...] [place] | | | | | [place] [address] | | + + + + + Care Team Providers + +------+ + | Care Utility Worker Film Processing Name | Role | Phone | + [...] | +--------+ + + + + | 12/24/ | Anti-coag | [facility] [place] [facility] | Stefan Corrigan, | Other acute | | 2020 | visit | CLINIC [address] | RESIDENT CARE AIDE [address] | pulmonary embolism | | | | [place]VE [place] | [place] | without acute cor | | | | [address] | [address] | pulmonale (HCC) | | | | [phone] | | | +--------+ + + + [...] + + + | Blood Pressure | 100/60 | 12/24/2019 1:57 PM | | | | | PST | | + + + + + | Pulse | 66 | 12/24/2019 1:57 PM | | | | | PST | | + + + + + | Temperature | 36.3 C (97.3 F) | 12/24/2019 1:57 PM | | | | | PST [...] + documented as of this encounter Progress Stefan Pascal ARNP - 12/24/2019 1:45 PM PSTFormatting of this note might be different f rom the original. [facility] Patient Name: Stiven Davila | Age: 34 y.o. | : 1985 | Medical Record Number:[id number] | Author: FLORENCE Araujo | Date of Encounter: 12/24/2019 Subjective: HPI: Anticoagulation: Patient here for followup of chronic anticoagulation. Indication: 1. Other acute pulmonary embolism without acute cor pulmonale (HCC) Patient Findings Negatives: Signs/symptoms of thrombosis, Signs/symptoms of bleeding, Laboratory test err or suspected, Change in health, Change in alcohol use, Change in activity, Upcoming invasive procedure, Emergency department visit, Upcoming dental procedure, Missed doses, Extra doses , Change in medications, Change in diet/appetite, Hospital admission, Bruising, Other compla ints Patient's medications, allergies, past medical, surgical, social and family histories were obtained and reviewed as appropriate. ROS: See HPI Objective: BP 100/60 | Pulse 66 | Temp 36.3 C (97.3 F) (Temporal) Physical Exam Constitutional: He is [...] warm and dry. Anticoagulation Summary As of 12/24/2019 INR goal: 2.0-3.0 TTR: INR used for dosin.9 (12/24/2019) Warfarin maintenance plan: 0 mg every Tue; 12.5 mg (5 mg x 2.5) every Tue, Sat; 10 mg (5 mg x 2) all other days Weekly warfarin total: 65 mg Plan last modified: FLORENCE Gamino (12/24/2019) Next INR check: 12/27/2019 Target end date: Indefinite Indications Acute pulmonary embolism without acute cor pulmonale (HCC) [I26.99] Anticoagulation Episode Summary INR check location: Anticoagulation Clinic Preferred lab: Send INR reminders to: CARIN [facility]ARLEY [facility] FRUIT INSPECTOR Comments: Assessment/Plan: 1. Other acute pulmonary embolism without acute cor pulmonale (HCC) - POCT PT/INR fingerstick See Anticoagulation Summary above. Warfarin schedule adjusted. [id number] Calendar and Anticoagulant instructions reviewed with the patient. Electronically signed by: FLORENCE Araujo 12/24/2019 at 2:05 PM Portions of this chart may have been created with [employer]ver[employer] voice recognition software. Occasi onal wrong-word or [...] [place] | | | | | | [id number] | | | | | | | | +--------+---------+ + + + documented as of this encounter Procedures + +--------+ + + + | Procedure Name | Priori | Date/Time | Associated Diagnosis | Comments | | | ty | | | | + +--------+ + + + | POC PT/INR | Routin | 12/24/2019 | Other acute | Results for this | | FINGERSTICK | e | 2:00 PM | pulmonary embolism | procedure are in the | | | | PST | without acute cor | results section. | | | | | pulmonale (HCC) | | + +--------+ + + + documented in this encounter Results POCT PT/INR fingerstick (12/24/2019 2:00 PM PST) + +---------+ + + + | Component | Value | Ref Range | Performed | Pathologist | | | | | At | Signature | + +---------+ + + + | INR, POC | 2.9 (A) | 0.9 - 1.2 | | | + +---------+ + + + + + | Specimen | + + | Blood | + + documented in this encounter Visit Diagnoses + + | Diagnosis | + + | Other acute pulmonary embolism without acute cor pulmonale (HCC) | + + documented in this encounter"
--- OUTSIDE RECORDS SUMMARY | ~2020-07-13 | XMS | Encounter Summary ---
Demographics + + + | Address | [address] | | | [place] [address] | + + + | Home Phone [...] + + + | Author | [facility] | | | and [place] | + + + | Organization | [facility] | | | [...] | | | | | [place] [address] | | + + + + + Care Team Providers + +------+ + | Care Wet Wash Assembler Name | Role | Phone | + +------+ + | Chance Dudley MD | PCP | | + +------+ + Reason for Visit + +--------+ + | Reason | Onset | Comments | | | Date | | + +--------+ + | ED Follow-up | 01/15/ | | | | 2020 | | + +--------+ + Encounter Details +--------+ + + + + | Date | Type | Department | Care Team | Description | +--------+ + + + + | 01/15/ | Telephone | [facility] [place] [facility] | Chance Dudley, | ED Follow-up | | 2020 | | MEDICINE [address] | [address] | | | | | AVE [place], | [place] | | | | | [place] [address] | [id number] | | | | | [phone] | | | +--------+ + + + [...] Telephone Encounter - Elodia Cabrales RN - 01/15/2020 4:50 PM PST [facility] ED follow up call Admission Date: 01/07/20 Discharge Date: 01/07/20 Discharge Disposition: Home or Self Care Principle Discharge Diagnosis: FINAL IMPRESSION 1. Shortness of breath 2. Moderate persistent reactive airway disease with acute exacerbation If unable to reach letter sent (if appropriate): YES-LETTER Any medications ordered this visit: YES Discharge Medication List as of 01/07/2020 6:35 PM START taking these medications Details albuterol 90 mcg/puff inhaler Inhale 2 puffs into the lungs every 4 hours as needed for Whe ezing or Shortness of Breath. Use with spacer device.Disp-1 Inhaler, R-0, Normal Specialty referral: No Referral in place: No Has this patient been seen in the ED 5 or more times in the last 6 months: NO=4X Need case management to prevent more ED visits: NO Follow up needed: As needed Future Appts: No future appointments. Discharge instructions: Discharge Instructions Use the inhaler every 4 hours for the next few days, then use it as needed Return for worsening symptoms or any other concerns documented in this e ncounter Plan of [...] [place] | | | | | | [id number] | | | | | | | | +--------+---------+ + + + documented as of this encounter Visit Diagnoses Not on filedocumented in this encounter"
--- OUTSIDE RECORDS SUMMARY | ~2020-07-13 | XMS | Encounter Summary ---
Demographics + + + | Address | [address] | | | [place] [address] | + + + | Home Phone [...] + + + | Author | [facility] | | | and [place] | + + + | Organization | [facility] | [...] [place] | | | | | [place] [address] | | + + + + + Care Team Providers + +------+ + | Care Senior Product Manager Name | Role | Phone | [...] | LABORATORY SERVICE | MD Manolo Hilton [facility] | | | | | [place] [address] | [place] | | | | | [place] | [address] | | | | | [address] | | | | | | [phone] | | | +--------+ + + + [...] [place] | | | | | | [address] | | | | | | | | +--------+---------+ + + + documented as of this encounter Visit Diagnoses + + | Diagnosis | + + | Learning disability Other specific developmental learning difficulties | + + documented in this encounter"
--- OUTSIDE RECORDS SUMMARY | ~2020-07-13 | XMS | Encounter Summary ---
Demographics + + + | Address | [address] | | | [place] [address] | + + + | Home Phone | | + + + | Preferred Language | Unknown | + + + | Marital Status | Single | + + + | Restorationist Affiliation | Unknown | + + + | Race | White | + + + | Ethnic Group | Not or | + + + Author + + + | Author | [facility] | | | and [place] | + + + | Organization | [facility] | | | [...] [place] | | | | | [place] [address] | | + + + + + Care Team Providers + +------+ + | Care Greaser And Oiler Name | Role | Phone | + [...] | | | | glenoid | | [address] | | | | | labrum | | Phone: | | | | | lesion of | | [phone] | | | | | left | | Fax: | | | | | shoulder, | | [phone] | | | | | initial | [...] | | | | | | | [place] SHLDR | | | | | | | ARTHROSCOP,S | | | | | | | URG,REPAIR,S | | | | | | | LAP LESION | | | | | | | [place] | | | | | | [...] | | | | | [address] | [place] | | | | | [place] | [address] | | | | | [address] | | | | | | [phone] | | | +--------+ + + + [...] +----+---+ + + | | 1 | [place] | | | | 3 | 43-degrees | | | | 1 | | | | | 5 | | | +----+---+ + + | | 1 | First | | | | 3 | [address] | | | | 1 | | | | | 7 | | | +----+---+ + + | | 1 | [place] off | | | | 4 | [...] 10/08/16 1715 by | | shawn | [id number] catheter system; | Nicol Lopez RN | [...] EVALUATION Stiven Davila 31 y.o. male 1985 [id number] Procedure(s) Left Shoulder Arthroscopy w/ Labral Repair [...] signed by Josr Arenas MD 10/08/2016 14:49 [facility] nest[facility] Procedure Notes - Josr Arenas MD [...] EVALUATION Stiven Davila 31 y.o. male 1985 [id number] Procedure(s): Left Shoulder Arthroscopy w/ Labral Repair and Capsular Shift (Left Shoulder) Medical history, anesthesia, medications, allergy, NPO status verified histories reviewed. ECG reviewed. Labs reviewed. Review of Systems / Med History Anesthesia History (-) PONV, difficult intubation, malignant hyperthermia Cardiovascular (-) past MD , Exercise tolerance >4 METS Pulmonary No [...] [place] | | | | | | [id number] | | | | | | | [...]
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
--- OUTSIDE RECORDS SUMMARY | ~2020-07-13 | XMS | Encounter Summary ---
Demographics + + + | Address | [address] | | | [place] [address] | + + + | Home Phone | | + + + | Preferred Language | Unknown | + + + | Marital Status | Single | + + + | Buddhism Affiliation | Unknown | + + + [...] [place] | | | | | [place] [address] | | + + + + + Care Team Providers + +------+ + | Care Middle School Art Teacher Name | Role | Phone | + +------+ + | Chance Dudley MD | PCP | | + +------+ + Encounter Details +--------+ + + + + | Date | Type | Department | Care Team | Description | +--------+ + + + + | 10/26/ | Hospital | [facility] | Kenney Gomez, | Right leg | | 2012 | Encounter | MED CTR XRAY [address] | MD [address] | paresthesias | | | | [place] | [place], [place] | | | | | [place] [address] | [address] | | | | | [phone] | | | +--------+ + + + [...] | | | | | | [place] | | | | | | [address] | | | | | | | | +--------+---------+ + + + documented as of this encounter Procedures + +--------+ + + + | Procedure Name | Priori | Date/Time | Associated Diagnosis | Comments | | | ty | | | | + +--------+ + + + | VAS LOWER EXTREMITY | Routin | 10/26/2013 | Right leg | Results for this | | VENOUS RIGHT | e | 1:01 PM | paresthesias | procedure are in the | | | | PST | | results section. | + +--------+ + + + documented in this encounter Results VAS Lower Extremity Venous Right (10/26/2013 1:01 PM PST) + + | Specimen | + + | | + + + + + | Narrative | Performed At | + + + | [facility] | [place] | | Department [address] [place] [address] | [facility] [facility] | | [ rep [address]] [ rep [facility] | | st zip] Signed | - IMAGING | | | | | Patient Name: STIVEN DAVILA Physician: | | | MEIR. : 1985 Age: 28 Sex: M Unit #: [id number] | | | Exam Date: 10/26/13 [place] [facility] [place] | | Report #: [id number] Page: | | | %(RAD)RES..mtdd.print.filter("pg") of %(RAD) | | | RES..mtdd.print.filter("tpg") | | | | | | Accession Number: [id number] | | | RIGHT LOWER EXTREMITY DUPLEX VENOUS ULTRASOUND, 10/26/2013 | | | CLINICAL HISTORY: PAIN. COMPARISON: None available. | | | FINDINGS: Alcocer-scale, color Doppler and duplex Doppler | | | interrogation of the right lower extremity deep veins is performed. | | | The right common femoral, superficial femoral and popliteal veins are | | | patent, with normal phasicity, compressibility and augmentation. The | | | central greater saphenous and profunda femoral veins are patent and | | | unremarkable, along with the left common femoral vein. | | | IMPRESSION: 1. NO EVIDENCE OF DVT IN THE RIGHT LOWER EXTREMITY. | | | <<Signature on File>> | | | Dwayne Magana | | Sushant Ovalles MD10/27/13 3547 <Electronically signed by Dwayne Ovalles MD> | | | Dwayne Ovalles MD 10/26/13 1301 Field Services Analyst: | | | Carole Goodrich10/26/13 9852 [place] Gomez MD | | + + + + + + + + | Performing | Address | City/State/Zipcode | Phone Number | | Organization | | | | + + + + + | [address] | [address] | [place] | [phone] | | [facility] | | [address] | | | - IMAGING | | | | + + + + + documented in this encounter Visit Diagnoses + + | Diagnosis | + + | Right leg paresthesias Disturbance of skin sensation | + + documented in this encounter
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
--- OUTSIDE RECORDS SUMMARY | ~2020-07-13 | XMS | Encounter Summary ---
Demographics + + + | Address | [address] | | | [place] [address] | + + + | Home Phone [...] Author + + + | Author | [facility] | | | and [place] | + + + | Organization | [facility] | | [...] [place] | | | | | [place] [address] | | + + + + + Care Team Providers + +------+ + | Care Professor Of Food Biochemistry Name | Role | Phone | + [...] Description | +--------+---------+ + + + | 12/03/ | Surgery | [facility] | Keren Orellana | EGD | | 2020 | | MED CTR MP INTRA OP | MD Alysha [address] | | | | | [address] | [address] | | | | | [place], [place] | [place] | | | | | [address] | [address] | | | | | [phone] | | | +--------+---------+ + + + [...] + + + | Blood Pressure | 137/67 | 12/03/2019 3:33 AM | | | | | PST | | + + + + + | Pulse | 60 | 12/03/2019 3:33 AM | | | | | PST | | + + + + + | Temperature | 36.2 C (97.2 F) | 12/03/2019 3:33 AM | | | | | PST | | + + + + + | Respiratory Rate | 18 | 12/03/2019 3:33 AM | | | | | PST | | + + + + + | Oxygen Saturation | 99% | 12/03/2019 3:33 AM | | | | | PST [...] 2 :45. Contact information: [address] [place] [address] Discharge Medications New Medications Details ondansetron 4 [...] mouth Daily. Chewables. For post-bariatric surgery nystatin 399915 UNIT/GM powder Apply 1 Application topically 2 times daily. aka: MYCOSTATIN testosterone 12.5 mg/1.25 g actuation (1%) gel Apply 4 Act topically Daily. Studies With Pending Results: None Less than 30 minutes were spent on discharge and coordination of post-hospital care. Electronically signed by: Anival Hightower MD, 12/04/2019 7:32 AM [facility] documented in this encounter Discharge [...] vomiting, or vomiting blood Date Last Reviewed: 05/28/201619994649-5980 [employer]. [address] [place] [address], [place] [address]. All righ ts reserved. This information is [...] You can't be awakened Date Last Reviewed: 09/14/201619994833-1293 [employer]. [address] [place] [address]. All righ ts reserved. This information is [...] | 0 | | | | (MYCOSTATIN) 660279 | topically 2 times | | | [...] Khanna MD - 12/03/2019 4:10 PM PST [facility] [place] HOSPITALIST PROGRESS NOTE Patient: Stiven Davila : 1985: Age: 34 y.o. MedRec: [id number] Admission date: 12/02/2019 Hospital day # : [...] L/min Sugar Khanna MD 12/03/2019 4:10 PM [facility] documented in this enco unter H&P Notes Keren Orellana MD - 12/03/2019 11:27 AM PSTFormatting of this note might be differe nt from the original. Inpatient Gastroenterology Consult Note Date of Service: 12/03/19 Chief Complaint: Emesis; GI Bleeding; and Chest Pain Referring Physician: MD OCTAVIA Providing Physician: Randy Valverde MD [facility] History of Present Illness Stiven Davila is [...] Capsular Shift; Surgeon: Candie Murguia DO; Location: [facility] MAIN OR SLEEVE GASTROPLASTY 09/14/2018 [facility] Family History Family History Problem Relation Age [...] Merged History Encounter Raised by mom in [place], [place]. Father not involved, drug addict. Lives with mom and younger brother. Children: None Schooling: HS graduate, required specialized education plan. A couple courses in college. 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 Employment: Unemployed. Wants to work for "[employer] He completed the tra ining for it. [...] ly. Chewables. For post-bariatric surgery nystatin (MYCOSTATIN) 865778 UNIT/GM powder Apply 1 Application topically 2 [...] Daily. Chewables. For post-bariatric surgery nystatin (MYCOSTATIN) 625609 UNIT/GM powder Apply 1 Application topically 2 [...] Myers MD - 12/02/2019 5:03 PM PST [facility] [place] HOSPITALIST HISTORY & PHYSICAL Patient: Stiven Davila : 1985: Age: 34 y.o. MedRec: [id number] Admission date: 12/02/2019 Hospital day # : [...] Capsular Shift; Surgeon: Candie Murguia DO; Location: [facility] MAIN OR SLEEVE GASTROPLASTY 09/14/2018 [facility] FAMILY HISTORY: family history includes Diabetes in [...] active diverticulitis. Dictated and Signed by: Zeeshan Isebll MD Electro nically signed: 12/02/2019 1:24 PM [...] by: Sugar Khanna MD 12/02/2019 5:03 PM [facility] documented in this enco unter Consult Notes Jeremy, Keren Encarnacion MD - 12/03/2019 8:20 AM PSTFormatting of this note might be differe nt from the original. Inpatient Gastroenterology Consult Note Date of Service: 12/03/19 Chief Complaint: Emesis; GI Bleeding; and Chest Pain Referring Physician: DR. WALLACE Providing Physician: Randy Valverde MD [facility] History of Present Illness Stiven Davila is [...] Capsular Shift; Surgeon: Candie Murguia DO; Location: [facility] MAIN OR SLEEVE GASTROPLASTY 09/14/2018 [facility] Family History Family History Problem Relation Age [...] Merged History Encounter Raised by mom in [place], [place]. Father not involved, drug addict. Lives with mom and younger brother. Children: None Schooling: HS graduate, required specialized education plan. A couple courses in college. 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 Employment: Unemployed. Wants to work for "[employer] He completed the [employer] for it. He first needs to get [...] ly. Chewables. For post-bariatric surgery nystatin (MYCOSTATIN) 507864 UNIT/GM powder Apply 1 Application topically 2 [...] medications. 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 MD notified. Electronically signed by Gloria Kingston RN at 12:14 PM Eric Rodriguez MD - 12/02/2019 11:14 AM PST [facility] Stiven Davila Emergency Department Encounter Note [address] [place] [id number] PCP:Chance Dudley MD [phone] CHIEF COMPLAINT: Chief Complaint Patient presents with Emesis GI Bleeding Chest Pain ED Room: ED10/ED10 HPI Stievn Davila is a 34 y.o. male who [...] Capsular Shift; Surgeon: Candie Murguia DO; Location: [facility] MAIN OR SLEEVE GASTROPLASTY 09/14/2018 [facility] CURRENT MEDICATIONS IMMUNOLOGIST Home Medications Medication Sig acyclovir (ZOVIRAX) 400 MG tablet take 1 tablet by mouth five times a day AT FIRST SIGN S OF COLD SORE OUTBREAK (Patient not taking: Reported on 12/02/2019) acyclovir (ZOVIRAX) 400 MG tablet Take 400 mg by mouth 5 times daily. Multiple Vitamins-Minerals (BARIATRIC MULTIVITAMINS/IRON PO) Take 1 tablet by mouth Marika ly. Chewables. For post-bariatric surgery nystatin (MYCOSTATIN) 439807 UNIT/GM powder Apply 1 Application topically 2 [...] Merged History Encounter Raised by mom in [place]. Father not involved, drug addict. Lives with mom and younger brother. Children: None Schooling: HS graduate, required specialized education plan. A couple courses in college. 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 Employment: Unemployed. Wants to work for "[employer]." He completed the tra ining for it. [...] a gastric sleeve that was done at [facility]. Patient reports that he drank last night [...] Discussed the case with Dr. Espinoza of [place] [facility]. Recommended Protonix twice daily, that he [...] in this encounter Miscellaneous Notes Plan of [place] - Derek Cardona RN - 12/04/2019 1:04 PM PSTMr Giovanni [...] with good relief noted. VSS lan of Amy Daugherty - 12/03/2019 3:36 PM PSTDischarge Planning: This Asst spoke with STIVEN and his mother Mabel at his bedside regarding discharge plans. STIVEN reports he lives on [address] with his mother Mabel. He reports the home being ground leve l at the entrance. No stairs inside the home. The bathroom has a tub shower. STIVEN reports being independent in his ADL's. He does not use any DME. His PCP is Dr Dudley and he uses the [facility] pharmacy. STIVEN's mother will transport him home when stable for discharge. Dispo: Home with mother, no needs Electronically signed by: Amy Almodovar 12/03/2019 3:44 PM -C Instructions Provati on - Jeremy, Keren Encarnacion MD - 12/03/2019 11:13 AM PSTDischarge Instructions for Upper End oscopy Patient: Stiven Davila : 1985 Acct: [id number] Exam Date: Tuesday, December 03, 2019 Doctor: [...] If unable to reach your physician, call [facility] Emergency Department at Ext. [phone] Your doctor recommends these additional instructions: Eat a soft diet. Continue your present medications. We are waiting for your pathology results. Return to your GI office in four months. These instructions have been explained to the patient and/or escort. A copy has been given to the patient/escort. Nurse Signature Patient Signature Escort Signature Date KEREN ORELLANA MD 12/03/2019 12:03:03 PM This report has been signed electronically. ed Student Note - Roderick Rios, Medical Student - 12/03/2019 7:39 AM PST [facility] [place] Medical Student PROGRESS NOTE Patient: Stiven Davila : 1985: Age: 34 y.o. MedRec: [id number] Admission date: 12/02/2019 Hospital day # : [...] has increased in Inferior leads Confirmed by MANUEL HOLLIS, NOREEN ([id number]) on 12/03/2019 6:33:55 AM CBC with Differential [...] Roderick Rios, Medical Student 12/03/2019 7:39 AM [facility] lan of Chanell Loyola RN - 12/03/2019 6:15 AM PSTKC complains of pain, states none of the medications he h as received have helped relieve any pain. He also complained of not being able to sleep. MD notified and melatonin ordered and given. He states he did not rest well. No nausea or vomit ing. NPO with LR running. Safety rounds completed and call light within reach. Problem: Nausea and Vomiting Goal: Fluid and Electrolyte Balance Outcome: Ongoing, progressing Problem: Pain Acute Goal: Optimal Pain Control Outcome: Ongoing, not progressing lan of Derek Smyth RN - 12/02/2019 6:09 PM PST Giovanni is being admitted to [facility]. He is without distr ess on arrival. [...] [place] | | | | | | [id number] | | | | | | | [...] + +--------+ + + + | *TERMED* CO UPPER GI | Routin | 12/03/2019 | [...] + + +--------- -----+ | Narrative | Performe d At | + +--------- -----+ | [facility] | [facility] | | [facility] CenterGastroenterologyPatient Name: Stiven Davila | AMBIKA Rick | | kathleenProcedure Date: 12/03/2019 11:13 AMMRN: [id number] | | | Number: [id number] of : 1985Note Status: | | | FinalizedAttending MD: KEREN ORELLANA [facility]cedure Type: | | | Upper GI endoscopy [...] | | 11:13 AMNumber of Addenda: 0 [facility] | | |Impression: | | [...] |Number of Addenda: 0 | | | [facility] | | + +--------- -----+ + +---------+ + + | Performing | Address | City/State/[facility] | Phone Number | | Organization [...] 13 | 9 - 23 mg/dL | [facility] | | | | | | [facility] | | | | | | MEDICAL | | | | | | CENTER - | | | | | | LABORATORY | | + + + + + + | Creatinine | 0.74 | 0.70 - 1.30 | [facility] | | | | | mg/dL | [facility] | | | | | | MEDICAL | | | | | | CENTER - | | | | | | LABORATORY | | + + + + + + | eGFR, | >60Comment: GLOMERULAR | >=60 | [facility] | | | non- | FILTRATION | mL/min/1.73m2 | [facility] | | | [place] | RATE,ESTIMATED | | MEDICAL | | | | mL/min/1.84y4Ofom than | | CENTER - | | [...] + | [facility] | [address] | [place] | [phone] | | [facility] | | [address] | | | - LABORATORY | | [...] [address] | [place] | [phone] | | [facility] | | [address] | | | - LABORATORY | | [...] LABORATORY: The technical component was performed by [employer] | | | [email or web address], [address] [place] [address] (Vehicle Monitor Technician: | | | Florinda Mueller MD; CLIA# [id number]). Professional interpretation was | | | performed by [employer], [place] branch, [address] [place] | | | [place] [address] [address] (Vehicle Monitor Technician: Teo | | | Max Kang MD; CLIA# [id number]). Diagnostician: Kaelyn [place] MD | | | Pathologist Electronically Signed 12/04/2019 | | + + + + +---------+ + + | Performing | Address | City/State/[facility]code | Phone Number | | Organization [...] + | [facility] | [address] | [place] | [phone] | | [facility] | | [address] | | | - LABORATORY | | [...] + | [facility] | [address] | [place] | [phone] | | [facility] | | [address] | | | - LABORATORY | | [...] PORTABLE dated | | 12/02/2019 11:53 AMHISTORY: [facility] COMPANYJoy PAINComparison: 06/30/2019TECHNIQUE: A | | single portable [...] | | | | | | [employer] | | | | | [...] + | [facility] | [address] | [place] | [phone] | | [facility] | | [address] | | | - LABORATORY | | [...] in | 12 - 53 U/L | [facility] | | | | use as of January 24 | | [facility] | | | | 2018. Check [...] + + | Performing | Address | City/State/[facility]code | Phone Number | | Organization | | | | + + + + + | [facility] | [address] | [place] | [phone] | | [facility] | | [address] | | | - LABORATORY | | [...] | | | | mmol/L | [facility] | | | | [...] 13 | 9 - 23 mg/dL | [facility] | | | | | | [facility] | | | | | | MEDICAL | | | | | | CENTER - | | | | | | LABORATORY | | + + + + + + | Creatinine | 0.75 | 0.70 - 1.30 | [facility] | | | | | mg/dL | [facility] | | | | | | MEDICAL | | | | | | CENTER - | | | | | | LABORATORY | | + + + + + + | eGFR, | >60Comment: GLOMERULAR | >=60 | [facility] | | | non- | FILTRATION | mL/min/1.73m2 | [facility] | | | [place] | RATE,ESTIMATED | | MEDICAL | | | | mL/min/1.42y0Iojj than | | CENTER - | | [...] 4.4 | 3.2 - 4.8 g/dL | [facility] | | | | | [facility] | | | | | | MEDICAL | | | | | | CENTER - | | | | | | LABORATORY | | + + + + + + | Bilirubin | 0.6 | 0.3 - 1.2 mg/dL | [facility] [...] | bulin Ratio | | | [facility] | | [...] [address] | [place] | [phone] | | [facility] | | [address] | | | - LABORATORY | | [...] | | Cells | | M/uL | . 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
--- OUTSIDE RECORDS SUMMARY | ~2020-07-13 | XMS | Encounter Summary ---
Demographics + + + | Address | [address] | | | [place] [address] | + + + | Home Phone [...] Author + + + | Author | [facility] | | | and [place] | + + + | Organization | [facility] | | [...] [place] | | | | | [place] [address] | | + + + + + Care Team Providers + +------+ + | Care Fusing Furnace Loader Name | Role | Phone | + +------+ + PCP | Unavailable | + +------+ + Encounter Details +--------+ + + + + | Date | Type | Department | Care Team | Description | +--------+ + + + + | 04/12/ | Hospital | [facility] | | | | 2007 | Encounter | [facility] | | | | | | CENTER [address] | | | | | | [place] | | | | | | [address] | | | | | | [phone] | | | +--------+ + + + [...]
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
--- OUTSIDE RECORDS SUMMARY | ~2020-07-13 | XMS | Encounter Summary ---
Demographics + + + | Address | [address] | | | [place] [address] | + + + | Home Phone | | + + + | Preferred Language | Unknown | + + + | Marital Status | Single | + + + | Gnosticist Affiliation | Unknown | + + + [...] | | | | | [place] [address] | | + + + + + Care Team Providers + +------+ + | Care Tile Mason Name | Role | Phone | + [...] Results | | 2016 | | [facility] [place] | [address] | | | | | [address] | [place], [place] | | | | | [place], [place] | [address] | | | | | [address] | | | | | | [phone] | | | +--------+ + + + [...]
--- OUTSIDE RECORDS SUMMARY | ~2020-07-13 | XMS | Encounter Summary ---
Demographics + + + | Address | [address] | | | [place] [address] | + + + | Home Phone [...] Author + + + | Author | [facility] | | | and [place] | + + + | Organization | [facility] | | | [...] [place] | | | | | [place] [address] | | + + + + + Care Team Providers + +------+ + | Care Cook Manager Name | Role | Phone | + +------+ + | Chance Dudley MD | PCP | | + +------+ + Reason for Visit + + + | Reason | Comments | + + + | Diabetes | | + + + | Wound | follow up | + + + Encounter Details +--------+---------+ + + + | Date | Type | Department | Care Team | Description | +--------+---------+ + + + | 09/18/ | Office | [facility] | Chance Dudley, | Chronic wound of | | 2012 | Visit | [facility] | [address] | extremity (Primary | | | | [address] | [place] | Dx); Prediabetes | | | | [place] | [address] | | | | | [address] | | | | | | [phone] | | | +--------+---------+ + + + [...] + + + | Blood Pressure | 124/70 | 09/18/2013 1:25 PM | | | | | PDT | | + + + + + | Pulse | 84 | 09/18/2013 1:25 PM | | | | | PDT | | + + + + + | Temperature | 36.8 C (98.2 F) | 09/18/2013 1:25 PM | | | | | PDT | | + + + + + | Respiratory Rate | 16 | 09/18/2013 1:25 PM | | | | | PDT | | + + + + + | Oxygen Saturation | - | - | | + + + + + | Inhaled Oxygen | - | - | | | Concentration | | | | + + + + + | Weight | 164.9 kg (363 lb 8 | 09/18/2013 1:25 PM | | | | oz) | PDT | | + + + + + | Height | - | - | | + + + + + | Body Mass Index | 46.67 | 06/12/2013 1:29 PM | | | | | PDT | | + + + + + documented in this encounter Patient Instructions Patient Instructions Chance Dudley MD - 09/18/2013 2:06 PM PDTBP 124/70 | Pulse 84 | T emp 36.8 C (98.2 F) (Temporal) | Resp 16 | Wt 164.883 kg (363 lb 8 oz) Please set your smart phone for breakfast, lunch, dinner, and bedtime. These will be your reminder to take your antibiotic (cephalexin) four times a day. Split your cephalexin into 2 bottles. Keep one bottle with you and keep one bottle at home . That way if you are outside of your house, you can take a pill from the bottle you carry with you. But if you are at home, take the pill from the bottle at home. Check your blood sugars before breakfast 3 times per week. Check blood sugars 2 hours afte r meals twice per week. Please keep a log of your readings. Cellulitis You have an infection of the [...] C) rectal, after two days on antibiotics [id number] [place] [address]. All rights reserve d. This information is not intended as a substitute for professional medical care. Always fo llow your healthcare professional's instructions. documented in this encounter Progress Notes Chance Dudley MD - 09/18/2013 1:55 PM PDTFormatting of this note might be different fr om the original. Subjective: Patient ID: Stiven Davila is a 28 y.o. male here for wound check and diabetes. HPI They forgot to have labs drawn. His weight is up. His mom feels frustrated about his shahriar vation with diet and exercise. He is nervous about home glucose checks. Corine met with artem mars today and reviewed diabetes, glucose monitoring, life style changes. His wound continues to drain "green yellow" fluid. He thinks it is a little smaller and no t as deep. He has not been taking keflex regularly. At most he takes it twice daily, but o ften does not take it at all. He tolerates it fine, "justs forgets." He does not brush his teeth regularly, so storing it next to toothbrush would not help. He does have a smart phon e. No fever, nausea, vomiting, pain. Patient's medications, allergies, past medical, surgical, social and family histories were reviewed and updated as appropriate. Review of Systems See HPI BP 124/70 | Pulse 84 | Temp 36.8 C (98.2 F) (Temporal) | Resp 16 | Wt 164.883 kg (363 l b 8 oz) Objective: Physical Exam Constitutional: He is oriented to person, place, and time. Very pleasant, well developed, NAD Cardiovascular: Normal rate, regular rhythm and normal heart sounds. Exam reveals no palomares p and no friction rub. No murmur heard. Neurological: He is alert and oriented to person, place, and time. Skin: 10 mm wide x 8 mm tall ulcer with smooth rolled borders and pink granulation tissue at center with oblong area of erythema ~2 finger breadths around ulcer. Mild amount of serous drainage. No fluctuance. Nontender. Assessment: Stiven was seen today for diabetes and wound. Diagnoses and associated orders for this visit: Chronic wound of extremity: Continues to be noncompliant with treatment. It is improving. No systemic symptoms, low suspicion for osteomyelitis. Wound culture with MSSA and GBS. Not characteristic of pyoderma gangrenosum. - Labs as ordered previously: CBC, C-Reactive Protein; Future - cephalexin (KEFLEX) 500 mg capsule; Take 1 capsule by mouth 4 times daily for 14 days. I f not improving will change back to clindamycin and cipro - Reviewed strategies to improve compliance with antibiotics. See AVS - Reviewed importance of treatment and complications of cellulitis Prediabetes: - Labs as previously ordered - Appreciate Corine's assistance arranging appointment with Home Day Care Provider - Start home monitoring - Educated on importance of blood sugar control and weight loss to improving his wound and overall health 20 minutes were spent face to face with Stiven. Over 50% spent on counseling of wound manageme nt and prediabetes FU: 2 weeks Saurabh Dudley MD opeJina stoneMYNOR - 09/18/2013 1:27 PM PDTPatient is here to follow up on wound (left leg) and for diabetes management. He states that he did not complete the course of keflex. documented in this encounter Plan of Treatment +--------+---------+ + + + | Date | Type | Specialty | Care Team | Description | +--------+---------+ + + + | 07/22/ | Office | Family Medicine | Chance Dudley, | | 2019 | Visit | | MD [address] | | | | | | [place] | | | | | | [phone] | | | | | | | [...]
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
--- OUTSIDE RECORDS SUMMARY | ~2020-07-13 | XMS | Encounter Summary ---
Demographics + + + | Address | [address] | | | [place] [address] | + + + | Home Phone [...] Author + + + | Author | [facility] | | | and [place] | + + + | Organization | [facility] | | | [...] | | | | | [place] [address] | | + + + + + Care Team Providers + +------+ + | Care Behaviour Support Teacher Name | Role | Phone | [...] | | | | [place] | [address] | | | | | [address] | | | | | | [phone] | | | +--------+ + + + [...] - 11/09/2018 12:45 PM PSTPatient identified through [employer] as having due serv ices. Test orders [...] [place] | | | | | | [address] | | | | | | | | +--------+---------+ + + + documented as of this encounter Visit Diagnoses Not on filedocumented in this encounter"
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
--- OUTSIDE RECORDS SUMMARY | ~2020-07-13 | XMS | Encounter Summary ---
Demographics + + + | Address | [address] | | | [place] [address] | + + + | Home Phone [...] | | | | | [place] [address] | | + + + + + Care Team Providers + +------+ + | Care Exchange Teller Name | Role | Phone | + +------+ + PCP | Unavailable | + +------+ + Encounter Details +--------+ + + + + | Date | Type | Department | Care Team | Description | +--------+ + + + + | 08/02/ | Hospital | [facility] | | | | 2000 | Encounter | [facility] | | | | | | [address] | | | | | | [place] | | | | | | [address] | | | | | | [phone] | | | +--------+ + + + [...]
--- OUTSIDE RECORDS SUMMARY | ~2020-07-13 | XMS | Encounter Summary ---
Demographics + + + | Address | [address] | | | [place] [address] | + + + | Home Phone [...] MANRIQUE | | | | | [place] [address] | | + + + + + Care Team Providers + +------+ + | Care Foam Rubber Curer Name | Role | Phone | + +------+ + | Chance Dudley MD | PCP | | + +------+ + Encounter Details +--------+ + + + + | Date | Type | Department | Care Team | Description | +--------+ + + + + | 06/05/ | Hospital | [facility] | Chance Dudley, | Chronic wound of | | 2013 | Encounter | [facility] | MD [address] | extremity; Bilateral | | | | [address] [place] | [place], [place] | lower extremity | | | | [place], [place] | [address] | edema; Screening for | | | | [address] | | diabetes mellitus; | | | | [phone] | | Elevated blood | | | | | | pressure | +--------+ + + + + Social [...] [place] | | | | | | [id number] | | | | | | | | +--------+---------+ + + + documented as of this encounter Procedures + +--------+ + + + | Procedure Name | Priori | Date/Time | Associated Diagnosis | Comments | | | ty | | | | + +--------+ + + + | MIGUEL ÁNGEL, WOUND, | Routin | 06/05/2013 | | Results for this | | SMEAR | e | 2:58 PM | | procedure are in the | | | | PDT | | results section. | + +--------+ + + + | CULTURE, WOUND, | Routin | 06/05/2013 | Chronic wound of | Results for this | | SMEAR | e | 2:58 PM | extremity | procedure are in the | | | | PDT | | results section. | + +--------+ + + + | CBC WITH | Routin | 06/05/2013 | | Results for this | | DIFFERENTIAL | e | 2:58 PM | | procedure are in the | | | | PDT | | results section. | + +--------+ + + + | C-REACTIVE PROTEIN | Routin | 06/05/2013 | | Results for this | | | e | 2:58 PM | | procedure are in the | | | | PDT | | results section. | + +--------+ + + + | TSH | Routin | 06/05/2013 | | Results for this | | | e | 2:58 PM | | procedure are in the | | | | PDT | | results section. | + +--------+ + + + | HEMOGLOBIN A1C | Routin | 06/05/2013 | | Results for this | | | e | 2:58 PM | | procedure are in the | | | | PDT | | results section. | + +--------+ + + + | COMPREHENSIVE | Routin | 06/05/2013 | | Results for this | | METABOLIC PANEL | e | 2:58 PM | | procedure are in the | | | | PDT | | results section. | + +--------+ + + + | CBC WITH | Routin | 06/05/2013 | Chronic wound of | Results for this | | DIFFERENTIAL | e | 2:36 PM | extremity Elevated | procedure are in the | | | | PDT | blood pressure | results section. | + +--------+ + + + | C-REACTIVE PROTEIN | Routin | 06/05/2013 | Chronic wound of | Results for this | | | e | 2:36 PM | extremity | procedure are in the | | | | PDT | | results section. | + +--------+ + + + | TSH | Routin | 06/05/2013 | Chronic wound of | Results for this | | | e | 2:36 PM | extremity Bilateral | procedure are in the | | | | PDT | lower extremity | results section. | | | | | edema | | + +--------+ + + + | HEMOGLOBIN A1C | Routin | 06/05/2013 | Screening for | Results for this | | | e | 2:36 PM | diabetes mellitus | procedure are in the | | | | PDT | | results section. | + +--------+ + + + | COMPREHENSIVE | Routin | 06/05/2013 | Chronic wound of | Results for this | | METABOLIC PANEL | e | 2:36 PM | extremity Elevated | procedure are in the | | | | PDT | blood pressure | results section. | + +--------+ + + + documented in this encounter Results CBC with Differential (06/05/2013 2:58 PM PDT) + + + + + + | Component | Value | Ref Range | Performed | Pathologist | | | | | At | Signature | + + + + + + | MANUAL | NO | | [facility] | | [facility] | | [facility] | | | L ? | | | MEDICAL | | | [...] + | [facility] | [address] | [place] | [phone] | | [facility] | | [address] | | | - LABORATORY | | | | + + + + + | [facility] | [address] | [place] | | | [facility] | | [address], [facility] | | | - LABORATORY | | | | + + + + + Culture, Wound, Smear (06/05/2013 2:58 PM PDT) + + + + + + | Component | Value | Ref Range | Performed | Pathologist | | | | | At | Signature | + + + + + + | Culture | MANY WBC/HPFRARE | | [facility] | | | Result | EPITHELIAL | | [facility] | | | | CELLS/HPFMODERATE GRAM | | MEDICAL | | | | POS COCCIComment: | | CENTER - | | | | Penicillin-resistant, | | LABORATORY | | | | oxacillin-susceptible | | | | | | strains are resistant | | | | | | to penicillinase-labile | | | | | | penicillins but | | | | | | susceptible to other | | | | | | penicillinase-stable | | | | | | penicillins, | | | | | | beta-lactam/ | | | | | | beta-lactamase inhibitor | | | | | | combinations, | | | | | | relevant cephems, and | | | | | | carbapenems. | | | | | | Oxacillin-resistant | | | | | | staphylococci are | | | | | | resistant to all | | | | | | currently available | | | | | | Beta-lactam | | | | | | antibiotics. per | | | | | | Clinical and Laboratory | | | | | | Standards [place] | | | | | | Rifampin should not be | | | | | | used alone for | | | | | | chemotherapy. | | | | | | Penicillin-resistant, | | | | | | oxacillin-susceptible | | | | | | strains are resistant | | | | | | to penicillinase-labile | | | | | | penicillins but | | | | | | susceptible to other | | | | | | penicillinase-stable | | | | | | penicillins, | | | | | | beta-lactam/ | | | | | | beta-lactamase inhibitor | | | | | | combinations, | | | | | | relevant cephems, and | | | | | | carbapenems. | | | | | | Oxacillin-resistant | | | | | | staphylococci are | | | | | | resistant to all | | | | | | currently available | | | | | | Beta-lactam | | | | | | antibiotics. per | | | | | | Clinical and Laboratory | | | | | | Standards [place] | | | | | | Rifampin should not be | | | | | | used alone for | | | | | | chemotherapy. | | | | | | Penicillin-resistant, | | | | | | oxacillin-susceptible | | | | | | strains are resistant | | | | | | to penicillinase-labile | | | | | | penicillins but | | | | | | susceptible to other | | | | | | penicillinase-stable | | | | | | penicillins, | | | | | | beta-lactam/ | | | | | | beta-lactamase inhibitor | | | | | | combinations, | | | | | | relevant cephems, and | | | | | | carbapenems. | | | | | | Oxacillin-resistant | | | | | | staphylococci are | | | | | | resistant to all | | | | | | currently available | | | | | | Beta-lactam | | | | | | antibiotics. per | | | | | | Clinical and Laboratory | | | | | | Standards [place] | | | | | | Rifampin should not be | | | | | | used alone for | | | | | | chemotherapy. | | | | | | Penicillin-resistant, | | | | | | oxacillin-susceptible | | | | | | strains are resistant | | | | | | to penicillinase-labile | | | | | | penicillins but | | | | | | susceptible to other | | | | | | penicillinase-stable | | | | | | penicillins, | | | | | | beta-lactam/ | | | | | | beta-lactamase inhibitor | | | | | | combinations, | | | | | | relevant cephems, and | | | | | | carbapenems. | | | | | | Oxacillin-resistant | | | | | | staphylococci are | | | | | | resistant to all | | | | | | currently available | | | | | | Beta-lactam | | | | | | antibiotics. per | | | | | | Clinical and Laboratory | | | | | | Standards [place] | | | | | | Rifampin should not be | | | | | | used alone for | | | | | | chemotherapy. | | | | + + + + + + + + | Specimen | + + | | + + + + + + + | Performing | Address | City/State/Zipcode | Phone Number | | Organization | | | | + + + + + | [facility] | [address] | [place], [place] | [phone] | | [facility] | | [address] | | | - LABORATORY | | | | + + + + + | [facility] | [address] | [place], [place] | | | [facility] | | [address] [place] [address] | | | - LABORATORY | | | | + + + + + Comprehensive Metabolic Panel (06/05/2013 2:58 PM PDT) + + + [...] | | | | mg/dL | [facility] | | | | [...] | >60Comment: For | >60 mL/min/A | [facility] | | | GFR | -Americans, | [...] | 11.0 | 6.0 - 17.0 | [facility] | | | | | | [facility] [...] + + | [facility] | [address] | [place] | [phone] | | [facility] | | [address] | | | - LABORATORY | | | | + + + + + | [facility] | [address] | [place], [place] | | | [facility] | | [id number] | | | - LABORATORY | | | | + + + + + C-Reactive Protein (06/05/2013 2:58 PM PDT) + + + [...] | | MEDICAL | | | | trauma, cardiac | | CENTER - | | | | infarct or neoplastic | | LABORATORY | | | | proliferation. | | | | + + + + + + + + | Specimen | + + | | + + + + + + + | Performing | Address | City/State/Zipcode | Phone Number | | Organization | | | | + + + + + | [facility] | [address] | [place] | [phone] | | [facility] | | [address] | | | - LABORATORY | | | | + + + + + | [facility] | [address] | [place] | | | [facility] | | [address], [facility] | | | - LABORATORY | | | | + + + + + TSH (06/05/2013 2:58 PM PDT) + + + [...] | [facility] | | | | [facility] | | MEDICAL | | | [...] + | [facility] | [address] | [place], [place] | [phone] | | [facility] | | [address] | | | - LABORATORY | | | | + + + + + | [facility] | [address] | [place], [place] | | | [facility] | | [id number] | | | - LABORATORY | | | | + + + + + Hemoglobin A1C (06/05/2013 2:58 PM PDT) + + + + + + | Component | Value | Ref Range | Performed | Pathologist | | | | | At | Signature | + + + + + + | Hemoglobin | 6.4 (H)Comment: | 4.3 - 5.8 % | [facility] | | | A1c | DIABETIC PATIENT RANGES: | | [facility] | | | | 6.2-7.0% = Well | | MEDICAL | | | | Controlled | | CENTER - | | | | | | LABORATORY | | | | 7.0-9.0% = | | | | | | Intermediate | | | | | | | | | | | | | | | | | | >9.0% = Poorly | | | | | | Controlled | | | | + + + + + + + + | Specimen | + + | | + + + + + + + | Performing | Address | City/State/Zipcode | Phone Number | | Organization | | | | + + + + + | [facility] | [address] | [place] | [phone] | | [facility] | | [address] | | | - LABORATORY | | | | + + + + + | [facility] | [address] | [place], [place] | | | [facility] | | [id number] | | | - LABORATORY | [...] | Result | WBC/HPFRARE EPITHELIAL | | [facility] | | | | CELLS/HPFMODERATE GRAM | [...] + | [facility] | [address] | [place] | [phone] | | [facility] | | [address] | | | - LABORATORY | | | | + + + + + | [facility] | [address] | [place] | | | [facility] | | [id number] | | | - LABORATORY | [...] + | [facility] | [address] | [place], [place] | [phone] | | [facility] | | [address] | | | - LABORATORY | | | | + + + + + | [facility] | [address] | [place], [place] | | | [facility] | | [address], [facility] | | | - LABORATORY | [...] | >60Comment: For | >60 mL/min/A | [facility] | | | GFR | -Americans, | [...] | 11.0 | 6.0 - 17.0 | [facility] | | | | | [...] [address] | [place] | [phone] | | [facility] | | [address] | | | - LABORATORY | | | | + + + + + | [facility] | [address] | [place], [place] | | | [facility] | | [id number] | | | - LABORATORY | [...] + | [facility] | [address] | [place], [place] | [phone] | | [facility] | | [address] | | | - LABORATORY | | | | + + + + + | [facility] | [address] | [place], [place] | | | [facility] | | [id number] [place] [address] | | | - LABORATORY | | [...] A1c | DIABETIC PATIENT RANGES: | | [facility] | | | | 6.2-7.0% = [...] + | [facility] | [address] | [place], [place] | [phone] | | [facility] | | [address] | | | - LABORATORY | | | | + + + + + | [facility] | [address] | [place] | | | [facility] | | [address] [place] [address] | | | - LABORATORY | | [...] | [facility] | | | | [facility] | | MEDICAL | | | [...] + | [facility] | [address] | [place], [place] | [phone] | | [facility] | | [address] | | | - LABORATORY | | | | + + + + + | [facility] | [address] | [place], [place] | | | [facility] | | [id number] | | | - LABORATORY | | | | + + + + + documented in this encounter Visit Diagnoses + + | Diagnosis | + + | Chronic wound of extremity Late effect of open wound of extremities without mention | | of tendon injury | + + | Bilateral lower extremity edema Edema | + + | Screening for diabetes mellitus | + + | Elevated blood pressure Elevated blood pressure reading without diagnosis of | | hypertension | + + documented in this encounter"
--- OUTSIDE RECORDS SUMMARY | ~2020-07-13 | XMS | Encounter Summary ---
Demographics + + + | Address | [address] | | | [place] [address] | + + + | Home Phone | | + + + | Preferred Language | Unknown | + + + | Marital Status | Single | + + + | Episcopal Affiliation | Unknown | + + + | Race | White | + + + | Ethnic Group | Not or | + + + Author + + + | Author | [facility] | | | and [place] | + + + | Organization | [facility] | | | [...] | | | | | [place] [address] | | + + + + + Care Team Providers + +------+ + | Care Digital Producer Name | Role | Phone | + [...] | Chance Brewster MD | [address] | | | | | (dyspnea on | [address] | [place], | | | | | exertion) | [address]VE [place] | [place] | | | | | Orthopnea | [place], [place] | [address] | | | | | Procedures | [address] | Phone: | | | | | ECHO | Phone: | [phone] | | | | | Complete | [phone] | Fax: | | | | | | Fax: | [phone] | | | | | | [phone] | | +--------+--------+ + + + + Reason for Visit Diagnostic/Screening (Routine) +--------+--------+ + + + + | Status | Reason | Specialty | Diagnoses / | Referred By | Referred To | | | | | Procedures | Contact | Contact | +--------+--------+ + + + + | Closed | | Radiology | Diagnoses | [place], | [facility] | | | | | [place] | Chance Brewster MD | [address] | | | | | (dyspnea on | [address] | [place], | | | | | exertion) | AVE [place] | [place] | | | | | Orthopnea | [place], [place] | [address] | | | | | Procedures | [address] | Phone: | | | | | ECHO | Phone: | [phone] | | | | | Complete | [phone] | Fax: | | | | | | Fax: | [phone] | | | | | | [phone] | | +--------+--------+ + + + + Encounter Details +--------+ + + + + | Date | Type | Department | Care Team | Description | +--------+ + + + + | 06/24/ | Hospital | [facility] | Chance Dudley, | [place] (dyspnea on | | 2020 | Encounter | [facility] [address] | [address] | exertion); Orthopnea | | | | [address] [place] | [place] | | | | | [place] [address] | [id number] | | | | | [phone] | | | +--------+ + + + [...] | 0 | | | | (MYCOSTATIN) [id number] | topically 2 times | | | [...] | 07/22/ Office | Family Medicine | Chance Dudley, | | | 2019 | Visit | | [address] | | | | | | [place] | | | | | | [address] | | | | | | | [...] + + documented in this encounter Results ECHO Complete (06/24/2020 2:09 [...] | | | | | | n [place] | | | | | + +--------+ [...] + + | [place] (dyspnea on exertion) Other dyspnea and respiratory abnormality | + + | Orthopnea | + + documented in this encounter"
--- OUTSIDE RECORDS SUMMARY | ~2020-07-13 | XMS | Encounter Summary ---
Demographics + + + | Address | [address] | | | [place] [address] | + + + | Home Phone [...] Author + + + | Author | [facility] | | | and [place] | + + + | Organization | [facility] | | [...] [place] | | | | | [place] [address] | | + + + + + Care Team Providers + +------+ + | Care Wool Scourer Name | Role | Phone | + [...] | Specialty | Orthopedic | Diagnoses | Barber, | [facility] | | | Services | Surgery | Chronic | Chance Brewster MD | Orthopedic | | | Required | | left | [address] | Surgery [address] | | | | | shoulder | [address]VE [place] | [address] | | | | | pain | [place], [place] | [place], | | | | | [place] | [address] | [place] [address] | | | | | labrum tear, | Phone: | Phone: | | | | | left, | [phone] | [phone] | | | | | subsequent | Fax: | Fax: | | | | | encounter | [phone] | [phone] | | | | | Recurrent | [...] + | 09/03/ | Telephone | [facility] | Chance Dudley, | Results | | 2015 | | [facility] | [address] | | | | | [address] | [place], [place] | | | | | [place], [place] | [address] | | | | | [address] | | | | | | [phone] | | | +--------+ + + + [...] [place] | | | | | | [id number] | | | | | | | [...]
--- OUTSIDE RECORDS SUMMARY | ~2020-07-13 | XMS | Encounter Summary ---
Demographics + + + | Address | [address] | | | [place] [address] | + + + | Home Phone [...] + + + | Author | [facility] | | | and [place] | + + + | Organization | [facility] | | [...] | | | | | [place] [address] | | + + + + + Care Team Providers + +------+ + | Care Sleep Lab Technologist Name | Role | Phone | + [...] pain, | | 2020 | Exam | [facility] [address] | unspecified type; | | | | [address] [place] | [place] | SOB (shortness of | | | | [place] [address] | [address] | breath) | | | | [phone] | | | +--------+ + + + [...] [place] | | | | | | [address] | | | | | | | [...]
--- OUTSIDE RECORDS SUMMARY | ~2020-07-13 | XMS | Encounter Summary ---
Demographics + + + | Address | [address] | | | [place] [address] | + + + | Home Phone | | + + + | Preferred Language | Unknown | + + + | Marital Status | Single | + + + | Jainism Affiliation | Unknown | + + + [...] | | | | | [place] [address] | | + + + + + Care Team Providers + +------+ + | Care Stunt Driver Name | Role | Phone | + +------+ + | Chance Dudley MD | PCP | | + +------+ + Reason for Visit + + + | Reason | Comments | + + + | Anticoagulation | | + + + Evaluate & Treat (Urgent) + + + + + + + | Status | Reason | Specialty | Diagnoses / | Referred By | Referred To | | | | | Procedures | Contact | Contact | + + + + + + + | Authorized | Specialty | Anticoagulati | Diagnoses | [place], | [facility] | | | [...] | | | | acute cor | [address] | [place] [address] | | | | | pulmonale | Phone: | Phone: | | | | | ([facility]) | [phone] | [phone] | | | | | | Fax: | Fax: | | | | | | [phone] | [phone] | + + + + + + + Encounter Details +--------+ + + + + | Date | Type | Department | Care Team | Description | +--------+ + + + + | 12/20/ | Anti-coag | [facility] [place] [facility] | Stefan Corrigan, | Other acute | | 2020 | visit | CLINIC [address] | [employer] [address] | pulmonary embolism | | | | AVE [place] | [place] | without acute cor | | | | [address] | [address] | pulmonale (HCC) | | | | [phone] | | | +--------+ + + + [...] + + + | Blood Pressure | 120/60 | 12/20/2019 12:38 PM | | | | | PST | | + + + + + | Pulse | 60 | 12/20/2019 12:38 PM | | | | | PST | | + + + + + | Temperature | 36.3 C (97.3 F) | 12/20/2019 12:38 PM | | | | | PST [...] encounter Progress Notes Stefan Corrigan ARNP - 12/20/2019 12:15 PM PSTFormatting of this note might be different f rom the original. [facility] Patient Name: Stiven Davila | Age: 34 y.o. | : 1985 | Medical Record Number:[id number] | Author: FLORENCE Araujo | Date of Encounter: 12/20/2019 Subjective: HPI: Anticoagulation: Patient here for followup [...] as appropriate. ROS: See HPI Objective: BP 120/60 | Pulse 60 | Temp 36.3 C (97.3 F) (Temporal) [...] warm and dry. Anticoagulation Summary As of 12/20/2019 INR goal: 2.0-3.0 TTR: INR used for dosin.4! (12/20/2019) Warfarin maintenance plan: 10 mg (5 mg x 2) every Zuleyma; 12.5 mg (5 mg x 2.5) every Sun, Fr i, Sat; 0 mg all other days Weekly warfarin total: 47.5 mg Plan last modified: FLORENCE Gamino (12/20/2019) Next INR check: 12/24/2019 Target end date: Indefinite Indications Acute pulmonary embolism without acute cor pulmonale (HCC) [I26.99] Anticoagulation Episode Summary INR check location: Anticoagulation Clinic Preferred lab: Send INR reminders to: [facility] MANAGER OPERATIONS AND PROCUREMENT Comments: Assessment/Plan: 1. Other acute pulmonary embolism without acute cor pulmonale (HCC) - POCT PT/INR fingerstick See Anticoagulation Summary above. Warfarin schedule adjusted. [id number] I spent 20 minutes face to face with the patient, with over 50% spent in counseling and/or coordination of care regarding TEACHING General Information: Coumadin booklet and information sheet provided Reason for taking drug (warfarin vs coumadin) and notify if change Dose and time to take Do not "make up" missed dose instructed to call us Medications and Food: Medication interactions, carlos ABX, herbs,vitamins Use tylenol only for pain relief; no extra ASA, Motrin, Aleve, read labels on cold medicati ons Vitamin K food interactions and moderation of these foods ETOH- 6 OZ of wine per day Signs and Symptoms of Hyper-Coagulation: Nose bleeds > 5 minutes, bleeding gums, blood in urine or stool,unexplained bruising, traum a or fall,stroke symptoms Importance of calling when: Scheduled for dental work or medical procedures Medical Alert . Calendar and Anticoagulant instructions reviewed with the patient. Electronically signed by: FLORENCE Araujo 12/20/2019 at 12:51 PM Portions of this chart may have been created with [employer] voice recognition software. Occasi onal wrong-word or [...] [place] | | | | | | [address] | | | | | | | | +--------+---------+ + + + documented as of this encounter Procedures + +--------+ + + + | Procedure Name | Priori | Date/Time | Associated Diagnosis | Comments | | | ty | | | | + +--------+ + + + | POC PT/INR | Routin | 12/20/2019 | Other acute | Results for this | | FINGERSTICK | e | 12:45 PM | pulmonary embolism | procedure are in the | | | | PST | without acute cor | results section. | | | | | pulmonale (HCC) | | + +--------+ + + + documented in this encounter Results POCT PT/INR fingerstick (12/20/2019 12:45 PM PST) + +---------+ + + + | Component | Value | Ref Range | Performed | Pathologist | | | | | At | Signature | + +---------+ + + + | INR, POC | 1.4 (A) | 0.9 - 1.2 | | | + +---------+ + + + + + | Specimen | + + | Blood | + + documented in this encounter Visit Diagnoses + + | Diagnosis | + + | Other acute pulmonary embolism without acute cor pulmonale (HCC) | + + documented in this encounter
--- OUTSIDE RECORDS SUMMARY | ~2020-07-13 | XMS | Encounter Summary ---
Demographics + + + | Address | [address] | | | [place] [address] | + + + | Home Phone [...] MANRIQUE | | | | | [place] [address] | | + + + + + Care Team Providers + +------+ + | Care Penal Officer Name | Role | Phone | + [...] | | | | glenoid | | [address] | | | | | labrum | | Phone: | | | | | lesion of | | [phone] | | | | | left | | Fax: | | | | | shoulder, | | [phone] | | | | | initial | [...] | | | | | | | MI SHLDR | | | | | | | ARTHROSCOP,S | | | | | | | URG,REPAIR,S | | | | | | | LAP LESION | | | | | | | MI SHLDR | | | | | | | ARTHROSCOP,S | | | | | | | URG,CAPSULOR | | | | | | | RHAPHY | | | +--------+--------+ + + + + Encounter Details +--------+ + + + + | Date | Type | Department | Care Team | Description | +--------+ + + + + | 10/08/ | [facility] | [facility] | Peng Murguia | | | 2016 | Encounter | MED [facility] OR [facility]TRA OP | J, DO [address] | | | | | [address] | [facility] | | | | | [place] | [address] | | | | | [phone] | [phone] | | | | | [phone] | | | +--------+ + + + [...] + + + | Blood Pressure | 145/80 | 10/08/2016 5:00 PM | | | | | PST | | + + + + + | Pulse | 86 | 10/08/2016 5:00 PM | | | | | PST | | + + + + + | Temperature | 36.3 C (97.3 F) | 10/08/2016 2:43 PM | | | | | PST | | + + + + + | Respiratory Rate | 16 | 10/08/2016 5:00 PM | | | | | PST | | + + + + + | Oxygen Saturation | 97% | 10/08/2016 5:30 PM | | | | | PST [...] documented in this encounter Discharge Instructions Instructions BladePeng J, - 10/08/2016[facility] Post-op Instructions - Shoulder Surgery The following instructions are meant to guide you following any shoulder surgery until your first post-operative visit 7-12 days later. For any problems or questions, please call our office at [phone], Tuesday through Tuesday, 9:00 am - 5:00 [...] that you may have received from the [place] [employer], advice from friends, family members, [employer] leaders, [employer] store clerks, conchita carballo, Reyna, Dr. Nguyen, Dr. Peguero, sports heroes, etc. If unsure, please call our office. Thank you, Peng Murguia D.O. [facility] [address] [place] [address] documented in this encounter Medications at Time [...] + documented as of this encounter H&P Notes Shoshana Nazario PA-C - 10/06/2016 10:21 AM PSTSubjective Left [...] about a 1 y ear ago at [facility] and did not experience relief. He had x-ray s and an MRI at [facility], ordered by Dr. Dudley. Review of Systems Constitutional: no fever and no chills. . The patient presents with complaints of left shoulder pain. Integumentary: no rashes and no skin lesions. Family History Mother Family history of Back problem Family history of hypertension (Z82.49) Current Meds Spironolactone-HCTZ 25-25 MG Oral Tablet; Take one tablet every morning for leg swelling; Therapy: [id number] to (Last Rx:[id number]) Requested for: [id number] Ordered Allergies Cephalexin CAPS Vitals Vitals Panel [...] labral repair 2. Left shoulder capsular plication FISHERIES BIOLOGIST: Shoshana Nazario PA-C ANESTHESIOLOGIST: Josr Arenas MD [...] around the anterior glenoid neck and a Welcome was used to free up the anterior [...] were also included in this bite. An pet care assistant did a capsular shift by grasping [...] | Office | Family Medicine | Chance Dudley | | | 2019 | Visit | | MD Manolo [address] | | | | | | [place] | | | | | | [address] | | | | | | | [...] | | | | NOREEN JACKSON MD ([id number]) | | | | | | on [...] + | [facility] [facility] | [address] | [place] | [phone] | | [facility] | | [address] | | | - LABORATORY | | | | + + + + + documented in this encounter Visit Diagnoses + + | Diagnosis | + + | Obesity, morbid, BMI 40.0-49.9 (HCC) | + + documented in this encounter Administered Medications + +---------+ +------+-------+------+ | Medication Order | MAR | Action | Dose | Rate | Site | | | Action | Date | | | | + +---------+ +------+-------+------+ | lactated ringers (LR) infusion | New Bag | 10/08/20 | | 100 | | | at 10-100 mL/hr, Intravenous, | | 16 3:29 | | mL/hr | | | CONTINUOUS, Starting 10/08/16 | | PM PST | | | | | at 1045, TKO., Pre-op | | | | | | + +---------+ +------+-------+------+ +---------+ +---+ +---+ | New Bag | [...]
--- OUTSIDE RECORDS SUMMARY | ~2020-07-13 | XMS | Encounter Summary ---
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 | LABORATORY | | + + + + + + | % | 34.8 | 20.0 - 45.0 % | [facility] | | | Lymphocytes | | | [facility] | | | | | | [facility] | | | | | | [facility] - | | | | | | LABORATORY | | + + + + + + | % Monocytes | 7.9 | 4.0 - 12.0 % | [facility] | | | | | | [facility] | | | | | | [facility] | | | | | | [facility] - | | | | | | LABORATORY | | + + + + + + | % | 6.9 (H) | 0.0 - 5.0 % | [facility] | | | Eosinophils | | | [facility] | | | | | | [facility] | | | | | | [facility] - | | | | | | LABORATORY | | + + + + + + | % Basophils | 0.7 | 0.0 - 1.0 % | [facility] [...] + + + + | Absolute | 3.00 | 1.80 - 8.50 | [facility] | | | Neutrophils | | K/uL | [facility] | | | | | | [facility] | | | | | | [facility] - | | | | | | LABORATORY | | + + + + + + | Absolute | 2.11 | 0.60 - 3.20 | [facility] | | | Lymphocytes | | K/uL | [facility] | | | | | | [facility] | | | | | | CENTER - | | | | | | LABORATORY | | + + + + + + | Absolute | 0.48 | 0.00 - 1.00 | [facility] | | | Monocytes | | K/uL | [facility] | | | | | | [facility] | | | | | | CENTER - | | | | | | LABORATORY | | + + + + + + | Absolute | 0.42 (H) | 0.00 - 0.40 | [facility] [...] [address] | [place] | [phone] | | [facility] | | [id number] | | | - LABORATORY | | | | + + + + + XR Hand Left 3 + Vw (06/24/2019 2:19 PM PDT) + + | Specimen | + + | | + + + + + | Narrative | Performed At | + + + | XR HAND LEFT 3 + VW 06/24/2019 2:18 PM HISTORY: Left thumb pain. | [facility] | | COMPARISON: None. FINDINGS: See below IMPRESSION - Small | | | linear ossific fragment along the ulnar head of the first metacarpal | | | on the oblique view. Please correlate for pain as an ulnar collateral | | | ligament injury remains within the differential. Mild soft | | | tissue swelling overlying the left metacarpal. Remaining bones and | | | soft tissues are anatomically aligned. Dictated and Signed by: | | | George See MD Electronically signed: 06/24/2019 5:56 PM | | + + + + + | Procedure Note | + + | Rudolph, Rad Results In - 06/24/2019 5:59 PM PDT XR HAND LEFT 3 + VW 06/24/2019 2:18 PM | | | | HISTORY: Left thumb pain. | | | | COMPARISON: None. | | | | FINDINGS: | | See below | | | | IMPRESSION - | | Small linear ossific fragment along the ulnar head of the first metacarpal on | | the oblique view. Please correlate for pain as an ulnar collateral ligament | | injury remains within the differential. | | | | Mild soft tissue swelling overlying the left metacarpal. | | | | Remaining bones and soft tissues are anatomically aligned. | | | | Dictated and Signed by: George See MD | | Electronically signed: 06/24/2019 5:56 PM | + + + +---------+ + + | Performing | Address | City/State/Zipcode | Phone Number | | Organization | | | | + +---------+ + + | [facility] | | | | + +---------+ + + Drugs of Abuse, Screen, Urine (06/24/2019 6:28 AM PDT) + + + + + [...] | | specimen obtained by | | single | | catheterization of | | bladder (specimen) | + + + + + + + | Performing | Address | City/State/Zipcode | Phone Number | | Organization | | | | + + + + + | [facility] | [address] | [place] | [phone] | | [facility] | | [id number] | | | - LABORATORY | | | | + + + + + Urinalysis with Microscopic with Culture if Indicated (06/24/2019 6:28 AM PDT) + + + + + + | Component | Value | Ref Range | Performed | Pathologist | | | | | At | Signature | + + + + + + | Color, | Yellow | Light Yellow, | [facility] | | | Urine | | Yellow, Straw | [facility] | | | | [...] + + + + | Specific | 1.018 | 1.001 - 1.030 | [facility] | | | [place], | | | [facility] | | [...] + + + | White Blood | 2-5 (A) | 0 - 2 /HPF | [facility] | | | Cells, | | | [facility] | | | Urine | | | MEDICAL | | | | | | CENTER - | | | | | | LABORATORY | | + + + + + + | Red Blood | 2-5 (A) | 0 - 2 /HPF | [facility] [...] | | Comment | Indicated | | [facility] | | | | | | [facility] | | | | | | CENTER - | | | | | | LABORATORY | | + + + + + + + + | Specimen | + + | Urine - Urine | | specimen obtained by | | single | | catheterization of | | bladder (specimen) | + + + + + + + | Performing | Address | City/State/Zipcode | Phone Number | | Organization | | | | + + + + + | [facility] | [address] | [place] | [phone] | | [facility] | | [address] | | | - LABORATORY | | | | + + + + + ECG 12 lead (06/24/2019 6:23 AM PDT) + + + + + + | Component | Value | Ref Range | Performed | Pathologist | | | | | At | Signature | + + + + + + | VENTRICULAR | 94 | BPM | [facility] | | | RATE EKG | | | | | + + + + + + | ATRIAL RATE | 94 | BPM | [facility] | | [...] + + + + | Q-T | 368 | ms | [facility] | | | INTERVAL | | | | | + + + + + + | Q-T | 460 | ms | [facility] | | | INTERVAL | | | | | | (CORRECTED) | | | | | + + + + + + | P WAVE AXIS | 35 | degrees | [facility] | | + + + + + + | QRS AXIS | 14 | degrees | [facility] | | + + + + + + | T AXIS | 5 | degrees | [facility] | | + + + + + + | INTERPRETAT | Normal sinus | | [facility] | | | ION TEXT | rhythmNonspecific T wave | | | | | | abnormalityAbnormal | | | | | | ECGNo previous ECGs | | | | | | availableConfirmed by | | | | | | NOREEN JACKSON MD ([id number]) | | | | | | on 06/25/2019 6:52:11 AM | | | | + + [...] | + +---------+ + + CT Angiogram Chest Abdomen Pelvis w Contrast (06/24/2019 6:18 AM PDT) + + | Specimen | + + | | + + + + + | Narrative | Performed At | + + + | CT ANGIOGRAM CHEST ABDOMEN PELVIS W CONTRAST 06/24/2019 6:03 AM | [facility] | | HISTORY: major trauma assess for aortic injury and other acute | | | pathology. COMPARISON: None PROCEDURE: Axial images through | | | the chest, abdomen and pelvis after the administration of 100ml Omni | | | 350 intravenous contrast. Multiplanar reconstructions. At least | | | one of the following CT dose optimization techniques were used: | | | Automated exposure control; Adjustment of mA and/or kV according to | | | patient size; Use of iterative reconstruction technique. FINDINGS: | | | ARTERIES: No significant abnormality in the aorta, its proximal | | | branches or the iliac arteries. No aneurysm, dissection or occlusion. | | | There is mild irregularity of the distal splenic artery, though no | | | evidence of extravascular contrast extravasation. CHEST Lungs, | | | Pleura and Airways: No pneumothorax or hemothorax. No significant | | | pulmonary or airway abnormality. No evidence of diaphragmatic injury. | | | Bibasilar subsegmental atelectasis. Mediastinum: There is a small | | | amount of edema/hematoma formation in the anterior mediastinum, | | | immediately deep to the sternum where there is a comminuted and | | | mildly displaced sternal fracture. ?No evidence of active contrast | | | extravasation. ?No other mediastinal hematoma. ?No aortic or great | | | vessel injury. No pericardial hemorrhage. Lymph Nodes: No adenopathy. | | | Calcified lymph nodes are present. ABDOMEN Liver and Biliary: | | | No liver injury. No gallbladder or biliary abnormality. Liver is | | | enlarged. Pancreas, Spleen and Adrenals: Question a splenic | | | laceration through the superior aspect of the spleen. No evidence of | | | a perisplenic/capsular hematoma. No pancreatic or adrenal injury. | | | Kidneys: No renal injury. No perirenal hemorrhage or fluid. | | | ABDOMEN AND PELVIS Bowel: No mesenteric hematoma. No duodenal, small | | | bowel or colonic wall abnormality. No extraluminal air. 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 Vessels: No significant abnormality in the aorta, its | | | proximal branches or the iliac arteries. No significant abnormality | | | in the portal veins, mesenteric veins or systemic veins. Lymph | | | Nodes: No adenopathy. Peritoneum and Retroperitoneum: No | | | intraperitoneal free air or peritoneal hemorrhage. No significant | | | retroperitoneal abnormality. PELVIS Genitourinary: No | | | genitourinary injury. BODY WALL Soft Tissues: Soft tissue | | | contusion along the left chest wall, scattered through the anterior | | | abdomen, and possibly the right posterior flank soft tissues. Bones: | | | Acute nondisplaced fractures involving the anterolateral aspect of | | | the left 3rd through 9th ribs. ?Nondisplaced fracture at the | | | posterior margin of the left 1st rib. ?Nondisplaced fractures at the | | | anterior margin of the right 2nd and 3rd ribs. ?Comminuted, mildly | | | displaced fracture of the sternum within the midbody. Subtle anterior | | | buckling of the S3 vertebral body, likely chronic without evidence | | | for a fracture on axial imaging. Irregularity at the insertion of the | | | right greater trochanter into the right femur is likely artifactual | | | without evidence for fracture on coronal. IMPRESSION - 1. | | | Comminuted and mildly displaced fracture of the mid sternum. ?Small | | | adjacent contusion/hematoma along the deep surface in the anterior | | | mediastinum. 2. Anterior left 3rd through 9th and right 2nd and 3rd | | | rib fractures without significant displacement. 3. Nondisplaced | | | fracture at the posterior margin of the left 1st rib. ?Nondisplaced | | | fractures at the anterior margin of the right 2nd and 3rd ribs. 4. | | | No evidence of acute traumatic vascular injury throughout the chest, | | | abdomen, or pelvis. Subtle irregularity/haziness along the margin of | | | the left subclavian artery (series 2, images 46-48) which may be | | | artifactual/related to motion with subtle wall contusion/blunt | | | arterial injury unable to be entirely excluded.?Nonspecific mild | | | irregularity along the mid splenic artery without contrast | | | extravasation. ?The right proximal subclavian artery cannot be | | | evaluated/commented upon as there is a large amount contrast within | | | the right subclavian vein from the intravenous contrast injection. | | | 5. Question a subtle splenic laceration through the superior aspect of | | | the spleen. No evidence of a perisplenic/capsular hematoma. | | | Findings were communicated by Dr. See to Dr. Polo on 06/24/2019 | | | at 10:25 AM. Dictated and Signed by: George See MD | | | Electronically signed: 06/24/2019 10:33 AM | | + + + + + | Procedure Note | + + | Rudolph, Rad Results In - 06/24/2019 10:[address] ANGIOGRAM CHEST ABDOMEN PELVIS W | | CONTRAST 06/24/2019 6:03 AMHISTORY: major trauma assess for aortic injury and other acute | | pathology.COMPARISON:NonePROCEDURE:Axial images through the chest, abdomen and pelvis | | after theadministration of 100ml Omni 350 intravenous contrast. | | Multiplanarreconstructions.At least one of the following CT dose optimization techniques | | wereused: Automated exposure control; Adjustment of mA and/or kV accordingto patient | | size; Use of iterative reconstruction technique.FINDINGS:ARTERIES: No significant | | abnormality in the aorta, its proximalbranches or the iliac arteries. No aneurysm, | | dissection or occlusion.There is mild irregularity of the distal splenic artery, though | | noevidence of extravascular contrast extravasation.CHESTLungs, Pleura and Airways: No | | pneumothorax or hemothorax. Nosignificant pulmonary or airway abnormality. No evidence | | ofdiaphragmatic injury. Bibasilar subsegmental atelectasis. Mediastinum: There is a | | small amount of edema/hematoma formation in theanterior mediastinum, immediately deep to | | the sternum where there is acomminuted and mildly displaced sternal fracture. ?No | | evidence ofactive contrast extravasation. ?No other mediastinal hematoma. ?Noaortic or | | great vessel injury. No pericardial hemorrhage.Lymph Nodes: No adenopathy. Calcified | | lymph nodes are present. ABDOMENLiver and Biliary: No liver injury. No gallbladder or | | biliaryabnormality. Liver is enlarged. Pancreas, Spleen and Adrenals: Question a splenic | | laceration through thesuperior aspect of the spleen. No evidence of a | | perisplenic/capsular hematoma.No pancreatic or adrenal injury.Kidneys: No renal injury. | | No perirenal hemorrhage or fluid.ABDOMEN AND PELVISBowel: No mesenteric hematoma. No | | duodenal, small bowel or colonic wallabnormality. No extraluminal air. ?Prior sleeve | | gastrectomy.Vessels: No significant abnormality in the aorta, its proximal branchesor | | the iliac arteries. No significant abnormality in the portal veins,mesenteric veins or | | systemic veins.Lymph Nodes: No adenopathy.Peritoneum and Retroperitoneum: No | | intraperitoneal free air orperitoneal hemorrhage. No significant retroperitoneal | | abnormality.PELVISGenitourinary: No genitourinary injury.BODY WALLSoft Tissues: Soft | | tissue contusion along the left chest wall, scattered throughthe anterior abdomen, and | | possibly the right posterior flank soft tissues. Bones: Acute nondisplaced fractures | | involving the anterolateral aspectof the left 3rd through 9th ribs. ?Nondisplaced | | fracture atthe posterior margin of the left 1st rib. ?Nondisplaced fractures atthe | | anterior margin of the right 2nd and 3rd ribs. ?Comminuted, mildlydisplaced fracture of | | the sternum within the midbody. Subtle anterior bucklingof the S3 vertebral body, likely | | chronic without evidence for a fracture onaxial imaging. Irregularity at the insertion | | of the right greater trochanterinto the right femur is likely artifactual without | | evidence for fracture oncoronal. IMPRESSION -1. Comminuted and mildly displaced fracture | | of the mid sternum. ?Smalladjacent contusion/hematoma along the deep surface in the | | anteriormediastinum.2. Anterior left 3rd through 9th and right 2nd and 3rd rib | | fractureswithout significant displacement. 3. Nondisplaced fracture at the posterior | | margin of the left 1st rib.?Nondisplaced fractures atthe anterior margin of the right | | 2nd and 3rd ribs. 4. No evidence of acute traumatic vascular injury throughout the | | chest,abdomen, or pelvis. Subtle irregularity/haziness along the margin of the | | leftsubclavian artery (series 2, images 46-48) which may be artifactual/related tomotion | | with subtle wall contusion/blunt arterial injury unable to be | | entirelyexcluded.?Nonspecific mild irregularity along the mid splenic artery | | withoutcontrast extravasation. ?The right proximal subclavian artery cannot | | beevaluated/commented upon as there is a large amount contrast within the | | rightsubclavian vein from the intravenous contrast injection. 5. Question a subtle | | splenic laceration through the superior aspect of thespleen. No evidence of a | | perisplenic/capsular hematoma.Findings were communicated by Dr. See to Dr. Polo on | | 06/24/2019 at 10:25AM.Dictated and Signed by: George See MD Electronically signed: | | 06/24/2019 10:33 AM | |Genitourinary: No genitourinary injury. | | | |BODY WALL | |Soft Tissues: Soft tissue contusion along the left chest wall, scattered through | |the anterior abdomen, and possibly the right posterior flank soft tissues. | |Bones: Acute nondisplaced fractures involving the anterolateral aspect | |of the left 3rd through 9th ribs. ?Nondisplaced fracture at | |the posterior margin of the left 1st rib. ?Nondisplaced fractures at | |the anterior margin of the right 2nd and 3rd ribs. ?Comminuted, mildly | |displaced fracture of the sternum within the midbody. Subtle anterior buckling | |of the S3 vertebral body, likely chronic without evidence for a fracture on | |axial imaging. Irregularity at the insertion of the right greater trochanter | |into the right femur is likely artifactual without evidence for fracture on | |coronal. | | | | | |IMPRESSION - | |1. Comminuted and mildly displaced fracture of the mid sternum. ?Small | |adjacent contusion/hematoma along the deep surface in the anterior | |mediastinum. | |2. Anterior left 3rd through 9th and right 2nd and 3rd rib fractures | |without significant displacement. | |3. Nondisplaced fracture at the posterior margin of the left 1st rib. | |?Nondisplaced fractures at | |the anterior margin of the right 2nd and 3rd ribs. | |4. No evidence of acute traumatic vascular injury throughout the chest, | |abdomen, or pelvis. Subtle irregularity/haziness along the margin of the left | |subclavian artery (series 2, images 46-48) which may be artifactual/related to | |motion with subtle wall contusion/blunt arterial injury unable to be entirely | |excluded.?Nonspecific mild irregularity along the mid splenic artery without | |contrast extravasation. ?The right proximal subclavian artery cannot be | |evaluated/commented upon as there is a large amount contrast within the right | |subclavian vein from the intravenous contrast injection. | |5. Question a subtle splenic laceration through the superior aspect of the | |spleen. No evidence of a perisplenic/capsular hematoma. | | | |Findings were communicated by Dr. See to Dr. Polo on 06/24/2019 at 10:25 | |AM. | | | |Dictated and Signed by: George See MD | | Electronically signed: 06/24/2019 10:33 AM | + + + +---------+ + + | Performing | Address | City/State/Zipcode | Phone Number | | Organization | | | | + +---------+ + + | [facility] | | | | + +---------+ + + CT Cervical Spine wo Contrast (06/24/2019 6:17 AM PDT) + + | Specimen | + + | | + + + + + | Narrative | Performed At | + + + | CT CERVICAL SPINE WO CONTRAST 06/24/2019 6:03 AM HISTORY: assess | [facility] | | for fracture. COMPARISON: None. PROTOCOL: Thin section axial | | | images of the cervical spine were obtained along with coronal and | | | sagittal reformations. FINDINGS: Vertebral body height and | | | alignment is maintained. Intervertebral disc spaces are preserved. | | | Prevertebral and paraspinal soft tissues show no acute abnormality. | | | Cervicomedullary junction and atlantoaxial articulations demonstrate | | | no acute abnormalities. C2-3: No central canal or neural foramina | | | canal stenosis. C3-4: No central canal or neural foramina canal | | | stenosis. C4-5: No central canal or neural foramina canal | | | stenosis. C5-6: No central canal or neural foramina canal | | | stenosis. C6-7: No central canal or neural foramina canal | | | stenosis. C7-T1: No central canal or neural foramina canal | | | stenosis. IMPRESSION - 1. No acute cervical spine fracture or | | | evidence of traumatic malalignment. Dictated and Signed by: | | | George See MD Electronically signed: 06/24/2019 10:05 AM | | + + + + + | Procedure Note | + + | Rudolph, Rad Results In - 06/24/2019 10:[address] CERVICAL SPINE WO CONTRAST 06/24/2019 | | 6:03 AMHISTORY: assess for fracture.COMPARISON: None.PROTOCOL: Thin section axial | | images of the cervical spine were obtained alongwith coronal and sagittal | | reformations.FINDINGS:Vertebral body height and alignment is maintained. Intervertebral | | disc spacesare preserved. Prevertebral and paraspinal soft tissues show no | | acuteabnormality. Cervicomedullary junction and atlantoaxial articulationsdemonstrate no | | acute abnormalities.C2-3: No central canal or neural foramina canal stenosis.C3-4: No | | central canal or neural foramina canal stenosis.C4-5: No central canal or neural | | foramina canal stenosis.C5-6: No central canal or neural foramina canal stenosis.C6-7: | | No central canal or neural foramina canal stenosis.C7-T1: No central canal or neural | | foramina canal stenosis.IMPRESSION -1. No acute cervical spine fracture or evidence of | | traumatic malalignment.Dictated and Signed by: George See MD Electronically signed: | | 06/24/2019 10:05 AM | |demonstrate no acute abnormalities. | | | |C2-3: No central canal or neural foramina canal stenosis. | | | |C3-4: No central canal or neural foramina canal stenosis. | | | |C4-5: No central canal or neural foramina canal stenosis. | | | |C5-6: No central canal or neural foramina canal stenosis. | | | |C6-7: No central canal or neural foramina canal stenosis. | | | |C7-T1: No central canal or neural foramina canal stenosis. | | | | | |IMPRESSION - | |1. No acute cervical spine fracture or evidence of traumatic malalignment. | | | | | | | |Dictated and Signed by: George See MD | | Electronically signed: 06/24/2019 10:05 AM | + + + +---------+ + + | Performing | Address | City/State/Zipcode | Phone Number | | Organization | | | | + +---------+ + + | [facility] | | | | + +---------+ + + CT Head wo Contrast (06/24/2019 6:17 AM PDT) + + | Specimen | + + | | + + + + + | Narrative | Performed At | + + + | EXAM: CT HEAD WO CONTRAST dated 06/24/2019 6:03 AM HISTORY: | [facility] | | assess for fracture Comparison: None. TECHNIQUE: Noncontrast | | | CT is performed from the top of calvarium through the skull base. | | | Coronal and sagittal reformats are performed. FINDINGS: | | | BRAIN: No areas of increased attenuation to suggest intracranial | | | hemorrhage. There is no mass, mass effect, or midline shift. There | | | are no abnormal extra-axial fluid or air collections. There is | | | preservation of the hall-white differentiation at this time. | | | Ventricles, sulci and cisterns are unremarkable for age. There is | | | no significant white matter disease. SCALP/ CALVARIUM: Question a | | | small right posterior parietal scalp soft tissue contusion. No | | | evidence of underlying skull fracture. SINUSES / ORBITS/ MASTOIDS: | | | Mild ethmoid air cell mucosal thickening. The globes and retroconal | | | contents are intact and without evidence of acute abnormality. | | | IMPRESSION - 1. Normal CT of the head. 2. Question a small right | | | posterior parietal scalp soft tissue contusion. No evidence of | | | underlying skull fracture. Dictated and Signed by: George | | | MD Mayi Electronically signed: 06/24/2019 9:59 AM | | + + + + + | Procedure Note | + + | Rudolph, Rad Results In - 06/24/2019 10:02 AM PDT EXAM: CT HEAD WO CONTRAST dated | | 06/24/2019 6:03 AMHISTORY: assess for fractureComparison: None.TECHNIQUE: Noncontrast CT | | is performed from the top of calvarium through theskull base. Coronal and sagittal | | reformats are performed.FINDINGS: BRAIN: No areas of increased attenuation to suggest | | intracranial hemorrhage. There is no mass, mass effect, or midline shift. There are no | | abnormalextra-axial fluid or air collections. There is preservation of the | | hall-whitedifferentiation at this time. Ventricles, sulci and cisterns are | | unremarkablefor age. There is no significant white matter disease. SCALP/ CALVARIUM: | | Question a small right posterior parietal scalp soft tissuecontusion. No evidence of | | underlying skull fracture.SINUSES / ORBITS/ MASTOIDS: Mild ethmoid air cell mucosal | | thickening. The globesand retroconal contents are intact and without evidence of acute | | abnormality.IMPRESSION -1. Normal CT of the head.2. Question a small right posterior | | parietal scalp soft tissue contusion. Noevidence of underlying skull fracture.Dictated | | and Signed by: George See MD Electronically signed: 06/24/2019 9:59 AM | |differentiation at this time. Ventricles, sulci and cisterns are unremarkable | |for age. There is no significant white matter disease. | | | |SCALP/ CALVARIUM: Question a small right posterior parietal scalp soft tissue | |contusion. No evidence of underlying skull fracture. | | | |SINUSES / ORBITS/ MASTOIDS: Mild ethmoid air cell mucosal thickening. The globes | |and retroconal contents are intact and without evidence of acute abnormality. | | | |IMPRESSION - | |1. Normal CT of the head. | |2. Question a small right posterior parietal scalp soft tissue contusion. No | |evidence of underlying skull fracture. | | | | | | | |Dictated and Signed by: George See MD | | Electronically signed: 06/24/2019 9:59 AM | + + + +---------+ + + | Performing | Address | City/State/Zipcode | Phone Number | | Organization | | | | + +---------+ + + | [facility] | | | | + +---------+ + + Extra Gold Top Tube (06/24/2019 5:46 AM PDT) + +-------+ + + + | Component | Value | Ref Range | Performed | Pathologist | | | | | At | Signature | + +-------+ + + + | Extra Gold | Done | | [facility] | | | Top Tube | | | [facility] [facility] | | [...] [address] | [place] | [phone] | | [facility] | | [address] | | | - LABORATORY | | | | + + + + + Extra Lavender Top Tube (06/24/2019 5:46 AM PDT) + +-------+ + + + [...] ST. | [address] | [place], [place] | [phone] | | [facility] | | [address] | | | - LABORATORY | | | | + + + + + Lipase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
--- OUTSIDE RECORDS SUMMARY | ~2020-07-13 | XMS | Encounter Summary ---
Demographics + + + | Address | [address] | | | [place] [address] | + + + | Home Phone [...] [place] | | | | | [place] [address] | | + + + + + Care Team Providers + +------+ + | Care Research Compliance Specialist Name | Role | Phone | + +------+ + | Chance Dudley MD | PCP | | + +------+ + Encounter Details +--------+ + + + + | Date | Type | Department | Care Team | Description | +--------+ + + + + | 08/09/ | Hospital | [facility] | Chance Dudley, | Chronic left hip | | 2016 | Encounter | [facility] | MD [address] | pain | | | | [address] [place] | [place] | | | | | [place] | [address] | | | | | [address] | | | | | | [phone] | | | +--------+ + + + [...] GRE[place] | | | | | | [id number] | | | | | | | | +--------+---------+ + + + documented as of this encounter Procedures + +--------+ + + + | Procedure Name | Priori | Date/Time | Associated Diagnosis | Comments | | | ty | | | | + +--------+ + + + | XR HIP LEFT 2-3 | Routin | 08/09/2016 | Chronic left hip | Results for this | | VIEWS | e | 9:59 AM | pain | procedure are in the | | | | PDT | | results section. | + +--------+ + + + documented in this encounter Results XR Hip Left 2-3 Views (08/09/2016 9:59 AM PDT) + + | Specimen | + + | | + + + + + | Narrative | Performed At | + + + | PELVIS AND LEFT HIP: 08/09/2016 9:59 AM CLINICAL HISTORY: chronic | [facility] | | left anterior hip pain COMPARISON: None FINDINGS: AP view of | [facility] | | pelvis and frog leg view of left hip. Femoral acetabular joint | [facility] CENTER | | relationships are normal. [...] + | Nav Galdamez Results In - 08/09/2016 3:21 PM PDT [...] + + + + + | [facility] | [address] | [place] | [phone] | | [facility] | | [address] | | | - IMAGING | | | | + + + + + documented in this encounter Visit Diagnoses + + | Diagnosis | + + | Chronic left hip pain Pain in joint, pelvic region and thigh | + + documented in this encounter"
--- OUTSIDE RECORDS SUMMARY | ~2020-07-13 | XMS | Encounter Summary ---
Demographics + + + | Address | [address] | | | [place] [address] | + + + | Home Phone [...] Author + + + | Author | [facility] | | | and [place] | + + + | Organization | [facility] | | [...] [place] | | | | | [place] [address] | | + + + + + Care Team Providers + +------+ + | Care Rn School Name | Role | Phone | + [...] | Closed | Santi | [address] | | | | | fracture of | Keen[place], [place] | [place], | | | | | first | [address] | [place] | | | | | metacarpal | [place] | [address] | | | | | bone of left | [place], [place] | Phone: | | | | | hand with | [address] | [phone] | | | | | ligament | Phone: | Fax: | | | | | tear with | [phone] | [phone] | | | | | routine | Fax: | | | | | | healing, | [phone] | | | | | | subsequent [...] | | | | | first | [address] | [place] [address] | | | | | metacarpal | Phone: | Phone: | | | | | bone of left | [phone] | [phone] | | | | | hand, | Fax: | Fax: | | | | | initial | [phone] | [phone] | | | | | encounter | [...] | body, subsequent | | | | [address] | [place] [address] | encounter (Primary | | | | [phone] | [phone] | Dx); Closed fracture | | | [...] might be differ ent from the original. [facility] --[facility] PROGRESS NOTE Primary Care Physician: Chance Dudley [...] Capsular Shift; Surgeon: Candie Murguia DO; Location: [facility] MAIN OR SLEEVE GASTROPLASTY 09/14/2018 [facility] CURRENT MEDICATIONS Current Outpatient Medications Medication Sig Dispense Refill acyclovir (ZOVIRAX) 400 MG tablet Take 400 mg by mouth 5 times daily. Multiple Vitamins-Minerals (BARIATRIC MULTIVITAMINS/IRON PO) Take 1 tablet by mouth Marika ly. Chewables. For post-bariatric surgery nystatin (MYCOSTATIN) 353415 UNIT/GM powder Apply 1 Application topically 2 [...] alignment. Healed scars ulnar montejo d from [facility]. Neurological: He is alert and oriented to [...] GREEN | | | | | | [id number] | | | | | | | [...]
--- OUTSIDE RECORDS SUMMARY | ~2020-07-13 | XMS | Encounter Summary ---
Demographics + + + | Address | [address] | | | [place] [address] | + + + | Home Phone [...] | | | | | [place] [address] | | + + + + + Care Team Providers + +------+ + | Care Ruby Software Developer Name | Role | Phone | + [...] + | 05/02/ | Telephone | [facility] | Chance Dudley, | Appointment Question | | 2020 | | [facility]IC[facility] [place] | [address] | | | | | [address] | [place] | | | | | [place] | [address] | | | | | [address] | | | | | | [phone] | | | +--------+ + + + [...] Miscellaneous Notes Telephone Encounter - Virgie Swan, [place] Police Lieutenant - 05/08/2020 12:13 PM PDTlvm to give our office a call back ele phone Encounter - Christopher Zimmerman Medical Assistant - 05/06/2020 2:01 PM PDTCalled [...] [place] | | | | | | [address] | | | | | | | | +--------+---------+ + + + documented as of this encounter Visit Diagnoses Not on filedocumented in this encounter"
--- OUTSIDE RECORDS SUMMARY | ~2020-07-13 | XMS | Encounter Summary ---
Demographics + + + | Address | [address] | | | [place] [address] | + + + | Home Phone | | + + + | Preferred Language | Unknown | + + + | Marital Status | Single | + + + | Latter Day Affiliation | Unknown | + + + | Race | White | + + + | Ethnic Group | Not or | + + + Author + + + | Author | [facility] | | | and [place] | + + + | Organization | [facility] | | | [...] | | | | | [place], [place] [address] | | + + + + + Care Team Providers + +------+ + | Care Eyelet Row Marker Name | Role | Phone | + +------+ + PCP | Unavailable | + +------+ + Encounter Details +--------+ + + + + | Date | Type | Department | Care Team | Description | +--------+ + + + + | 05/14/ | [facility] | [facility] | Addie, | | | 2006 | Encounter | MED CTR [facility] | Rich Lua MD [address] | | | | | [place] [address] | [place] | | | | | [place] | [place] [address] | | | | | [address] | [phone] | | | | | [phone] | | | +--------+ + + + [...] [place] | | | | | | [id number] | | | | | | | | +--------+---------+ + + + documented as of this encounter Visit Diagnoses Not on filedocumented in this encounter"
--- OUTSIDE RECORDS SUMMARY | ~2020-07-13 | XMS | Encounter Summary ---
Demographics + + + | Address | [address] | | | [place] [address] | + + + | Home Phone [...] [place] | | | | | [place] [address] | | + + + + + Care Team Providers + +------+ + | Care Geometry Tutor Name | Role | Phone | + +------+ + | Chance Dudley MD | PCP | | + +------+ + Encounter Details +--------+ + + + + | Date | Type | Department | Care Team | Description | +--------+ + + + + | 07/06/ | Hospital | [facility] | Dann Irvin I, | Chronic left | | 2016 | Encounter | [facility] | PA-C [address] | shoulder pain | | | | [address] [place] | [address] | | | | | [facility], [place] | [place] [address] | | | | | [address] | [phone] | | | | | [phone] | | | +--------+ + + + [...] | 2019 | Visit | | MD [address] | | | | | | [place] | | | | | | [id number] | | | | | | | | +--------+---------+ + + + documented as of this encounter Procedures + +--------+ + + + | Procedure Name | Priori | Date/Time | Associated Diagnosis | Comments | | | ty | | | | + +--------+ + + + | XR SHOULDER LEFT 2 + | Routin | 07/06/2016 | Chronic left | Results for this | | VW | e | 5:12 PM | shoulder pain | procedure are in the | | | | PDT | | results section. | + +--------+ + + + documented in this encounter Results XR Shoulder Left 2 + Vw (07/06/2016 5:12 PM PDT) + + | Specimen | + + | | + + + + + | Narrative | Performed At | + + + | LEFT SHOULDER: 07/06/2016 5:12 PM CLINICAL HISTORY: left shoulder | [facility] | | pain COMPARISON: None FINDINGS: AP, Grashey and outlet views | [facility] | | of the left shoulder. [...] | [facility] | [address] | [place], [place] | [phone] | | [facility] | | [address] | | | - IMAGING | | | | + + + + + documented in this encounter Visit Diagnoses + + | Diagnosis | + + | Chronic left shoulder pain Pain in joint, shoulder region | + + documented in this encounter"
--- OUTSIDE RECORDS SUMMARY | ~2020-07-13 | XMS | Encounter Summary ---
Demographics + + + | Address | [address] | | | [place] [address] | + + + | Home Phone [...] | | | | | [place] [address] | | + + + + + Care Team Providers + +------+ + | Care Ceramic Design Engineer Name | Role | Phone | + +------+ + PCP | Unavailable | + +------+ + Encounter Details +--------+ + + + + | Date | Type | Department | Care Team | Description | +--------+ + + + + | 05/26/ | [facility] | [facility] | Stephen Prince | | | 2009 | Encounter | [facility] | [address] | | | | | [place] [address] | [address] [place] | | | | | [place] | [place] [address] | | | | | [phone] | [phone] | | | | | [phone] | | | +--------+ + + + [...] GREEN | | | | | | [id number] | | | | | | | | +--------+---------+ + + + documented as of this encounter Visit Diagnoses Not on filedocumented in this encounter"
--- OUTSIDE RECORDS SUMMARY | ~2020-07-13 | XMS | Encounter Summary ---
Demographics + + + | Address | [address] | | | [place] [address] | + + + | Home Phone [...] MANRIQUE | | | | | [place] [address] | | + + + + + Care Team Providers + +------+ + | Care Spiral Gear Generator Name | Role | Phone | + +------+ + | Chance Dudley MD | PCP | | + +------+ + Encounter Details +--------+ + + + + | Date | Type | Department | Care Team | Description | +--------+ + + + + | 09/18/ | Hospital | [facility] | Chance Dudley, | Prediabetes; Chronic | | 2013 | Encounter | [facility] | MD Manolo [address] | wound of extremity; | | | | [address] [place] | [place], [place] | Bilateral lower | | | | [place], [place] | [address] | extremity edema | | | | [address] | | | | | | [phone] | | | +--------+ + + + [...] + + + +---------+ + + | cephalexin | Take 1 capsule by | 56 | 0 | 09/18/20 | | | (KEFLEX) 500 mg | mouth 4 times daily | capsule | | 13 | 3 | | capsuleIndications: | for 14 days. | | | [...] [place] | | | | | | [id number] | | | | | | | | +--------+---------+ + + + documented as of this encounter Procedures + +--------+ + + + | Procedure Name | Priori | Date/Time | Associated Diagnosis | Comments | | | ty | | | | + +--------+ + + + | URINALYSIS, REFLEX | Routin | 09/18/2013 | | Results for this | | MICROSCOPIC AND/OR | e | 2:52 PM | | procedure are in the | | CULTURE | | PDT | | results section. | + +--------+ + + + | URINALYSIS, REFLEX | Routin | 09/18/2013 | Bilateral lower | Results for this | | MICROSCOPIC AND/OR | e | 2:52 PM | extremity edema | procedure are in the | | CULTURE | | PDT | | results section. | + +--------+ + + + | CBC WITH | Routin | 09/18/2013 | | Results for this | | DIFFERENTIAL | e | 2:52 PM | | procedure are in the | | | | PDT | | results section. | + +--------+ + + + | C-REACTIVE PROTEIN | Routin | 09/18/2013 | | Results for this | | | e | 2:52 PM | | procedure are in the | | | | PDT | | results section. | + +--------+ + + + | HEMOGLOBIN A1C | Routin | 09/18/2013 | | Results for this | | | e | 2:52 PM | | procedure are in the | | | | PDT | | results section. | + +--------+ + + + | CBC WITH | Routin | 09/18/2013 | Chronic wound of | Results for this | | DIFFERENTIAL | e | 2:42 PM | extremity | procedure are in the | | | | PDT | | results section. | + +--------+ + + + | C-REACTIVE PROTEIN | Routin | 09/18/2013 | Chronic wound of | Results for this | | | e | 2:42 PM | extremity | procedure are in the | | | | PDT | | results section. | + +--------+ + + + | HEMOGLOBIN A1C | Routin | 09/18/2013 | Prediabetes | Results for this | | | e | 2:42 PM | | procedure are in the | | | | PDT | | results section. | + +--------+ + + + documented in this encounter Results CBC with Differential (09/18/2013 2:52 PM PDT) + + + [...] | | | Eosinophils | | | [facility] | | | [...] | | | Basophils | | | [facility] | | [...] + | [facility] | [address] | [place] | [phone] | | [facility] | | [address] | | | - LABORATORY | | | | + + + + + | [facility] | [address] | [place] | | | [facility] | | [id number] | | | - LABORATORY | | | | + + + + + Urinalysis, Reflex Microscopic and/or Culture (09/18/2013 2:52 [...] - 1.030 | [facility] | | | [place], | | | [facility] | | [...] | n, Urine | | | [facility] | | | | | | MEDICAL | | | | | | CENTER - | | | | | | LABORATORY | | + + + + + + | Nitrite, | NEGATIVE | NEGATIVE | [facility] | | | Urine | | | [facility] | | | | | | MEDICAL | | | | | | CENTER - | | | | | | LABORATORY | | + + + + + + | Leukocyte | NEGATIVE | NEGATIVE | [facility] | | | Esterase, | | | [facility] | | | Urine | | | MEDICAL | | | | | | CENTER - | | | | | | LABORATORY | | + + + + + + | MICROSCOPIC | NO | | [facility] | | | ? | | | [facility] | | [...] + | [facility] | [address] | [place], [place] | [phone] | | [facility] | | [address] | | | - LABORATORY | | | | + + + + + | [facility] | [address] | [place], [place] | | | [facility] | | [address], [facility] | | | - LABORATORY | | | | + + + + + C-Reactive Protein (09/18/2013 2:52 PM PDT) + + + [...] + | [facility] | [address] | [place] | [phone] | | [facility] | | [address] | | | - LABORATORY | | | | + + + + + | [facility] | [address] | [place] | | | [facility] | | [id number] | | | - LABORATORY | | | | + + + + + Hemoglobin A1C (09/18/2013 2:52 PM PDT) + + + + + + | Component | Value | Ref Range | Performed | Pathologist | | | | | At | Signature | + + + + + + | Hemoglobin | 6.4 (H)Comment: | 4.3 - 5.8 % | [facility] | | | A1c | DIABETIC PATIENT [...] [facility]. | [address] | [place] | [phone] | | [facility] | | [address] | | | - LABORATORY | | | | + + + + + | [facility] | [address] | [place] | | | [facility] | | [address], [facility] | | | - LABORATORY | | | | + + + + + Urinalysis, Reflex Microscopic and/or Culture (09/18/2013 2:52 PM PDT) + + + + + + | Component | Value | Ref Range | Performed | Pathologist | | | | | At | Signature | + + + + + + | COLLECTION | VOID | | [facility] | | | [facility] | | | [facility] | | | | | | MEDICAL | | | | | | CENTER - | | | | | | LABORATORY | | + + + + + + | Color, | YELLOW | | [facility] | | | Urine | | | [facility] | | [...] - 1.030 | [facility] | | | [place], | | | [facility] | | [...] + | [facility] | [address] | [place], [place] | [phone] | | [facility] | | [address] | | | - LABORATORY | | | | + + + + + | [facility] | [address] | [place], [place] | | | [facility] | | [id number] | | | - LABORATORY | | | | + + + + + CBC with Differential (09/18/2013 2:42 PM PDT) [...] + | [facility] | [address] | [place] | [phone] | | [facility] | | [address] | | | - LABORATORY | | | | + + + + + | [facility] | [address] | [place] | | | [facility] | | [address], [facility] | | | - LABORATORY | [...] + | [facility] | [address] | [place] | [phone] | | [facility] | | [address] | | | - LABORATORY | | | | + + + + + | [facility] | [address] | [place] | | | [facility] | | [id number] | | | - LABORATORY | | [...] + | [facility] | [address] | [place] | [phone] | | [facility] | | [address] | | | - LABORATORY | | | | + + + + + | [facility] | [address] | [place], [place] | | | [facility] | | [id number] | | | - LABORATORY | | | | + + + + + documented in this encounter Visit Diagnoses + + | Diagnosis | + + | Prediabetes Other abnormal glucose | + + | Chronic wound of extremity Late effect of open wound of extremities without mention | | of tendon injury | + + | Bilateral lower extremity edema Edema | + + documented in this encounter"
--- OUTSIDE RECORDS SUMMARY | ~2020-07-13 | XMS | Encounter Summary ---
Demographics + + + | Address | [address] | | | [place] [address] | + + + | Home Phone [...] Author + + + | Author | [facility] | | | and [place] | + + + | Organization | [facility] | | [...] | | | | | [place] [address] | | + + + + + Care Team Providers + +------+ + | Care Superintendent Distribution Name | Role | Phone | + +------+ + | Chance Dudley MD | PCP | | + +------+ + Reason for Visit +---------+--------+ + | Reason | Onset | Comments | | | Date | | +---------+--------+ + | Results | 07/10/ | | | | 2017 | | +---------+--------+ + Encounter Details +--------+ + + + + | Date | Type | Department | Care Team | Description | +--------+ + + + + | 07/10/ | Telephone | [facility] | Chance Dudley, | Results | | 2018 | | MEDICINE [place] | [address] | | | | | [address] | [place], [place] | | | | | [place], [place] | [address] | | | | | [address] | | | | | | [phone] | | | +--------+ + + + [...] this encounter Miscellaneous Notes Telephone Encounter - Nichole Perez Cert MA - 07/14/2018 1:31 PM PDTMessage given to artem mars, he verbalized understanding. Recall entered. Lab orders are in Epic. elephone Encounter - Lakia Daugherty LPN - 07/10/2018 1:51 PM PDTCalled and left a voicemail message for patient to call back. elephone Encounter - Lakia Daugherty LPN - 07/10/2018 8:30 AM PDT----- Message from MD jong Yanez t at 07/08/2018 16:24 PDT ----- Will you please let STIVEN know that: 1. His testosterone is just a touch low but much better than previous. He should continue his testosterone and follow-up with Dr Vicente as planned. 2. His diabetes is under so-so control. Keep up the good work with the weight loss and di et. I expect his sugars to improve significantly after weight loss surgery. 3. His mild anemia is stable. He should recheck labs in 1 month to keep an eye on them. W e will also check vitamin and iron levels. Please let me know if he has any questions or concerns. Saurabh Dudley MD documented in this encounter [...]
--- OUTSIDE RECORDS SUMMARY | ~2020-07-13 | XMS | Encounter Summary ---
Demographics + + + | Address | [address] | | | [place] [address] | + + + | Home Phone [...] MANRIQUE | | | | | [place] [address] | | + + + + + Care Team Providers + +------+ + | Care Sales Service Rep Name | Role | Phone | + +------+ + PCP | Unavailable | + +------+ + Encounter Details +--------+ + + + + | Date | Type | Department | Care Team | Description | +--------+ + + + + | 04/12/ | Hospital | [facility] | | | | 2007 | Encounter | [facility] | | | | | | CENTER [address] | | | | | | [place] | | | | | | [address] | | | | | | [phone] | | | +--------+ + + + [...]
--- OUTSIDE RECORDS SUMMARY | ~2020-07-13 | XMS | Encounter Summary ---
Demographics + + + | Address | [address] | | | [place] [address] | + + + | Home Phone [...] | | | | | [place] [address] | | + + + + + Care Team Providers + +------+ + | Care Manager Alliance Name | Role | Phone | + +------+ + | Chance Dudley MD | PCP | | + +------+ + Reason for Visit +--------+--------+ + | Reason | Onset | Comments | | | Date | | +--------+--------+ + | DME | 04/08/ | | | | 2020 | | +--------+--------+ + Encounter Details +--------+ + + + + | Date | Type | Department | Care Team | Description | +--------+ + + + + | 04/08/ | Telephone | [facility] | Chance Dudley, | DME | | 2020 | | MEDICINE [place] | [address] | | | | | [address] | [place] | | | | | [place], [place] | [address] | | | | | [address] | | | | | | [phone] | | | +--------+ + + + [...] this encounter Miscellaneous Notes Telephone Encounter - Madison Jhaveri - 04/08/2020 2:12 PM PDTFaxed to [facility] and left message with patient. elephone [facility] - Lakia Daugherty LPN - 04/08/2020 2:01 PM PDTCalled and spoke with Amalia at [facility]. She states that they do not dispense nebulizer supplies. It will have to go to a supplier. Will have the front end specialist fax to [facility],Electronically signed by Lakia Daugherty LPN at 10/2020 2:02 PM PDTdocumented in this encounter Plan of [...]
--- OUTSIDE RECORDS SUMMARY | ~2020-07-13 | XMS | Encounter Summary ---
Demographics + + + | Address | [address] | | | [place] [address] | + + + | Home Phone | | + + + | Preferred Language | Unknown | + + + | Marital Status | Single | + + + | Rastafarian Affiliation | Unknown | + + + [...] | | | | | [place] [address] | | + + + + + Care Team Providers + +------+ + | Care Blow Moulding Machine Operator Name | Role | Phone [...] | Chance Brewster MD | [address] | | | | | left | [address] | [place], | | | | | shoulder | [address] [place] | [place] | | | | | pain | [place] | [address] | | | | | Procedures | [address] | Phone: | | | | | MRI Shoulder | Phone: | [phone] | | | | | Left | [phone] | Fax: | | | | | Arthrogram w | Fax: | [phone] | | | | | Contrast | [phone] | | +--------+--------+ + + + + Reason for Visit +---------+--------+ + | Reason | Onset | Comments | | | Date | | +---------+--------+ + | Results | 08/10/ | | | | 2015 | | +---------+--------+ + Encounter Details +--------+ + + + + | Date | Type | Department | Care Team | Description | +--------+ + + + + | 08/10/ | Telephone | [facility] [place] [facility] | Chance Dudley, | Results | | 2015 | | MEDICINE [place] | [address] | | | | | [address] | [place] | | | | | [place] | [address] | | | | | [address] | | | | | | [phone] | | | +--------+ + + + [...] Encounter - Samantha Taveras LPN - 08/10/2016 4:20 PM PDTCalled patient and not ified him of his lab results and MRI appointment. Patient verbalized understanding. elephone Encounter - Samantha Taveras LPN - 08/10/2016 3:28 PM PDTCalled the lab and the order of [id number] i s pending. elephone Encounter - Samantha Taveras LPN - 08/10/2016 3:00 PM PDTPatient is scheduled for his MRI on 08/20 at 10 with a 9:30 check-in. elephone Encounter - Chance Dudley MD - 08/10/2016 2:23 PM PDTWill you please let Stiven know that his testosterone levels are low. I want him to repeat labs in 3-4 w eeks. He needs to have them drawn between 8 and 10 AM. He does NOT need to fast. Also - will you please ask the lab how to order a leukocyte karyotype. Specifically I want to know if he has 47,XXY karyotype to assess for Klinefelter syndrome. Thanks! Saurabh Dudley MD documented in this [...] + documented as of this encounter Results Testosterone, Total (04/19/2017 5:36 PM PDT) + +--------+ + + + | Component | Value | Ref Range | Performed | Pathologist | | | | | At | Signature | + +--------+ + + + | Testosteron | 24 (L) | 168 - 758 ng/dL | [facility] | | | e | | | [...] + | [facility] | [address] | [place] | [phone] | | [facility] | | [address] | | | - LABORATORY | | | | + + + + + Luteinizing Hormone (04/19/2017 5:36 PM PDT) + + + + + + | Component | Value | Ref Range | Performed | Pathologist | | | | | At | Signature | + + + + + + | Luteinizing | 13.0 (H) | 1.2 - 8.6 | [facility] | | | Hormone | | mIU/mL | [facility] | | | | [...] [address] | [place] | [phone] | | [facility] | | [address] | | | - LABORATORY | | | | + + + + + FSH (04/19/2017 5:36 PM PDT) + +-------+ + + + | Component | Value | Ref Range | Performed | Pathologist | | | | | At | Signature | + +-------+ + + + | Follicle | 12.9 | 1.3 - 19.3 | [facility] | | | Stimulating | | mIU/mL | [facility] | | | Hormone | | | MEDICAL | | | [...] + | [facility] | [address] | [place] | [phone] | | [facility] | | [address] | | | - LABORATORY | | | | + + + + + MRI Shoulder Left Arthrogram w Contrast (09/03/2016 9:08 AM PDT) + + | Specimen | + + | | + + + + + | Narrative | Performed At | + + + | MR ARTHROGRAM LEFT SHOULDER 09/03/2016 9:00 AM CLINICAL | [facility] | | HISTORY:Chronic left shoulder pain COMPARISON: Shoulder | [facility] | | radiographs July 06 TECHNIQUE: Following the [facility] | | intraarticular injection of a [...] ANTERIOR DISLOCATION. Dictated and Signed by: Dwayne Ovallse MD Electronically signed: 09/03/2016 9:49 AM | | [...] ST. | [address] | [place], [place] | [phone] | | [facility] | | [address] | | | - IMAGING | | | | + + + + + FL Shoulder Injection Left for MRI or CT (09/03/2016 8:51 AM PDT) + + | Specimen | + + | | + + + + + | Narrative | Performed At | + + + | EXAM: FL SHOULDER INJECTION LEFT FOR MRI OR CT dated 09/03/2016 7:22 | [facility] | | AM HISTORY:Chronic left shoulder pain PROCEDURE: The risks, | [facility] | | benefits, indications, and alternatives to the procedure were | MEDICAL CENTER | | discussed with the patient in advance. Informed consent was obtained | - IMAGING | | and documented. The patient's prior imaging studies and clinical | | | information, if available, are reviewed preprocedurally. A timeout | | | was taken. The patient was placed supine on the fluoroscopic table. | | | Fluoroscopy is utilized to place percutaneous access to the left | | | glenohumeral joint. The skin entrance site is marked. It is then | | | prepped and draped in the usual sterile manner. Local anesthesia | | | was obtained at the skin surface and deep to the joint using 3 cc 1% | | | lidocaine or Xylocaine without epinephrine. A 3 1/2 inch 22-gauge | | | spinal needle is advanced into the glenohumeral joint under | | | fluoroscopic guidance. A 2 cc injection of lidocaine or Xylocaine | | | followed by a 1 cc injection of Omnipaque [id number] confirmed | | | intra-articular positioning of the needle tip. An additional 8 to | | | 10 cc's of a dilute gadolinium contrast mixture are further injected. | | | Intermittent fluoroscopy confirms intra-articular positioning of the | | | needle tip and diffusion of the contrast mixture. The needle was | | | removed. Hemostasis was achieved at the skin surface. A Band-Aid | | | was applied. There is no significant rotator cuff tear on the | | | obtained images.. IMPRESSION - Successful fluoroscopic guided | | | shoulder arthrogram prior to MRI. Dictated and Signed by: Zeeshan Hamilton | | | MD [place] Electronically signed: 09/03/2016 10:07 AM | | + + + + + | Procedure Note | + + | Rudolph, Rad Results In - 09/03/2016 10:10 AM PDT EXAM: FL SHOULDER INJECTION LEFT FOR | | MRI OR CT dated 09/03/2016 7:22 AMHISTORY:Chronic left shoulder painPROCEDURE: The risks, | | benefits, indications, and alternatives to the procedurewere discussed with the patient | | in advance. Informed consent was obtained anddocumented. The patient's prior imaging | | studies and clinical information, ifavailable, are reviewed preprocedurally. A timeout | | was taken. The patient wasplaced supine on the fluoroscopic table. Fluoroscopy is | | utilized to placepercutaneous access to the left glenohumeral joint. The skin entrance | | site ismarked. It is then prepped and draped in the usual sterile manner. | | Localanesthesia was obtained at the skin surface and deep to the joint using 3 cc | | 1%lidocaine or Xylocaine without epinephrine. A 3 1/2 inch 22-gauge spinal needleis | | advanced into the glenohumeral joint under fluoroscopic guidance. A 2 ccinjection of | | lidocaine or Xylocaine followed by a 1 cc injection of [id number] confirmed | | intra-articular positioning of the needle tip. An additional 8 to10 cc's of a dilute | | gadolinium contrast mixture are further injected. Intermittent fluoroscopy confirms | | intra-articular positioning of the needle tipand diffusion of the contrast mixture. The | | needle was removed. Hemostasis wasachieved at the skin surface. A Band-Aid was | | applied. There is no significantrotator cuff tear on the obtained images..IMPRESSION | | -Successful fluoroscopic guided shoulder arthrogram prior to MRI.Dictated and Signed by: | | Zeeshan Isbell MD Electronically signed: 09/03/2016 10:07 AM | |achieved at the skin surface. A Band-Aid was applied. There is no significant | |rotator cuff tear on the obtained images.. | | | |IMPRESSION - | | | |Successful fluoroscopic guided shoulder arthrogram prior to MRI. | | | |Dictated and Signed by: Zeeshan Isbell MD | | Electronically signed: 09/03/2016 10:07 AM | + + + + + + + | Performing | Address | City/State[facility] | Phone Number | | Organization | | | | + + + + + | [facility] | [address] | [place] | [phone] | | [facility] | | [address] | | | - IMAGING | | | | + + + + + documented in this encounter Visit Diagnoses + + | Diagnosis | + + | Hypogonadism in male - Primary | + + | Learning disability Other specific developmental learning difficulties | + + | Chronic left shoulder pain Pain in joint, shoulder region | + + documented in this encounter"
--- OUTSIDE RECORDS SUMMARY | ~2020-07-13 | XMS | Encounter Summary ---
Demographics + + + | Address | [address] | | | [place] [address] | + + + | Home Phone [...] | | | | | [place] [address] | | + + + + + Care Team Providers + +------+ + | Care Data Entry Clerk Name | Role | Phone | + +------+ + | Chance Dudley MD | PCP | | + +------+ + Reason for Visit +--------+ + | Reason | Comments | +--------+ + | Pain | right foot feels numb, calf and hip pain. RM 4 | +--------+ + Encounter Details +--------+---------+ + + + | Date | Type | Department | Care Team | Description | +--------+---------+ + + + | 10/26/ | Office | [facility] | Kenney Gomez, | Right leg | | 2012 | Visit | CARE [address] | MD [address] | paresthesias | | | | [place] | [place] | (Primary Dx); Low | | | | [phone] | [id number] | back strain | | | | [phone] | | | +--------+---------+ + + + [...] + + + | Blood Pressure | 140/80 | 10/26/2013 11:09 AM | | | | | PST | | + + + + + | Pulse | 74 | 10/26/2013 11:09 AM | | | | | PST | | + + + + + | Temperature | 36.4 C (97.6 F) | 10/26/2013 11:09 AM | | | | | PST | | + + + + + | Respiratory Rate | 18 | 10/26/2013 11:09 AM | | | | | PST | | + + + + + | Oxygen Saturation | 99% | 10/26/2013 11:09 AM | | | | | PST | | + + + + + | Inhaled Oxygen | - | - | | | Concentration | | | | + + + + + | Weight | 165.1 kg (364 lb) | 10/26/2013 11:09 AM | | | | | PST | | + + + + + | Height | 185.4 cm (6' 1") | 10/26/2013 11:09 AM | | | | | PST | | + + + + + | Body Mass Index | 48.02 | 10/26/2013 11:09 AM | | | | | PST | | + + + + + documented in this encounter Patient Instructions Patient Instructions Kenney Gomez MD - 10/26/2013 12:05 PM PSTTreat your leg and lower back with rest, elevation of the legs as needed for swelling, ibuprofen every 6 hours as ne eded for pain, along with heat to the lower back and range of motion with slow stretching. Followup with Dr. Dudley at the next available opportunity for further evaluation and karyna braga. I think you will need nerve conduction studies to better evaluate this.Electronicall y signed by Kenney Gomez MD at 10/26/2013 12:07 PM PST documented in this encounter Progress Notes Kenney Gomez MD - 10/26/2013 11:56 AM PSTFormatting of this note might be different fr om the original. Subjective: Chief Complaint: Pain Stvien is a 28 y.o. male who comes in complaining of paresthesias to the right lateral calf and plantar aspect of the right foot for about the last 6 days, along with some right lower serg k and posterior hip pain for about that same period of time. He denies any recent trauma or overuse. He has not had this previously. He denies any weakness with this, though does collins ve some swelling in his right lower extremity. As noted in the records he does have diabete s which is not well-controlled. He states his ulceration to the left medial calf is healing well and that he is compliant with his Keflex. No other complaints. Patient's medications, allergies, past medical, surgical, social and family histories were reviewed and updated as appropriate. Objective: BP 140/80 | Pulse 74 | Temp 36.4 C (97.6 F) (Temporal) | Resp 18 | Ht 1.854 m (6' 1") | Wt 165.109 kg (364 lb) | BMI 48.02 kg/m2 | SpO2 99% General Appearance: Alert, cooperative, no distress, appears stated age The back has some point tenderness in the right sacral region to palpation extending slight ly up into the right lower lumbar region and SI joint region and over the buttocks, with the rest of the back nontender. Both lower extremities have trace to 1+ pitting edema in the p retibial region with slightly decreased sensation to vibratory in the feet and toes, though it is worse in the right foot and the left, with decreased sensation to soft touch in the ri ght foot as well. Strength is normal throughout both lower extremities, and reflexes are tr izzy and symmetric to knee jerk and ankle jerk. The feet are cool to palpation though with g ood capillary refill and with palpable pulses. Straight leg raise on the right does exacerb ate his right lower back pain though does not has radiation of pain down the lower extremity . Has negative straight leg raise on the left. The ulceration to his left medial calf does appear to be healing though has not yet resolve d. I have not seen it previously for comparison. There is no surrounding erythema or tende rness Venous duplex scan right lower extremity is negative for DVT. Assessment and Plans: Right lower back strain with paresthesias right lower extremity, which I suspect is from a diabetic peripheral neuropathy, aggravated with his low back strain and secondary edema. Wi ll treat with rest, elevation of the lower extremities as needed for swelling, ibuprofen britney ry 6 hours as needed for pain, along with heat to the lower back and range of motion with sl ow stretching. He is advised to followup with Dr. Dudley at the next available opportunit y for further evaluation and treatment. I think he will need nerve conduction studies to be tter evaluate this. documented in this e ncounter Plan of [...] [place] | | | | | | [id number] | | | | | | | | +--------+---------+ + + + documented as of this encounter Results VAS Lower Extremity Venous Right (10/26/2013 1:01 PM PST) + + | Specimen | + + | | + + + + + | Narrative | Performed At | + + + | [facility] | [place] | | Department [address] [address] [facility] | | [ rep [address]] [ rep [facility] | | st zip] Signed | - IMAGING | | | | | Patient Name: STIVEN DAVILA Physician: | | | [birth year] : 1985 Age: 28 Sex: M Unit #: [id number] | | | Exam Date: 10/26/13 Location: [facility] [place] | | | Report #: [id number] Page: | | | %(RAD)RES..mtdd.print.filter("pg") of %(RAD) | | | RES..mtdd.print.filter("tpg") | | | | | | Accession Number: [id number] | | | RIGHT LOWER EXTREMITY DUPLEX [...] | | | Dwayne Magana | | | MD Josr10/27/13 8035 <Electronically signed by Dwayne Ovalles MD> | | | Dwayne Ovalles MD 10/26/13 1307 Processor Helper: | | | Carole Goodrich10/26/13 9836 Kenney Gomez MD | | + + + + + + + + | Performing | Address | City/State/Zipcode | Phone Number | | Organization | | | | + + + + + | [address] | [address] | [place] | [phone] | | [facility] | | [address] | | | - IMAGING | | | | + + + + + documented in this encounter Visit Diagnoses + + | Diagnosis | + + | Right leg paresthesias - Primary Disturbance of skin sensation | + + | Low back strain Sprain of lumbar region | + + documented in this encounter
--- OUTSIDE RECORDS SUMMARY | ~2020-07-13 | XMS | Encounter Summary ---
Demographics + + + | Address | [address] | | | [place] [address] | + + + | Home Phone [...] | | | | | [place], [place] [address] | | + + + + + Care Team Providers + +------+ + | Care State Archivist Name | Role | Phone | + +------+ + PCP | Unavailable | + +------+ + Encounter Details +--------+ + + + + | Date | Type | Department | Care Team | Description | +--------+ + + + + | 08/08/ | [facility] | [facility] | Rich Millard | | | 2000 | Encounter | MED CTR XRAY [address] | [place] [address] | | | | | [place] | [place] | | | | | [place] [address] | [address] | | | | | [phone] | [phone] | | | | | | | [...] [place] | | | | | | [id number] | | | | | | | | +--------+---------+ + + + documented as of this encounter Visit Diagnoses Not on filedocumented in this encounter"
--- OUTSIDE RECORDS SUMMARY | ~2020-07-13 | XMS | Encounter Summary ---
Demographics + + + | Address | [address] | | | [place] [address] | + + + | Home Phone | | + + + | Preferred Language | Unknown | + + + | Marital Status | Single | + + + | Yarsanism Affiliation | Unknown | + + + | Race | White | + + + | Ethnic Group | Not or | + + + Author + + + | Author | [facility] | | | and [place] | + + + | Organization | [facility] | | [...] | | | | | [place] [address] | | + + + + + Care Team Providers + +------+ + | Care Director Operating Name | Role | Phone | + +------+ + | Chance Dudley MD | PCP | | + +------+ + Reason for Visit +---------+--------+ + | Reason | Onset | Comments | | | Date | | +---------+--------+ + | Results | 06/26/ | | | | 2020 | | +---------+--------+ + Encounter Details +--------+ + + + + | Date | Type | Department | Care Team | Description | +--------+ + + + + | 06/26/ | Telephone | [facility] | Chance Dudley, | Results | | 2020 | | [facility] [place] [facility] | [address] | | | | | [facility] [place] | [place], [place] | | | | | [address] | [address] | | | | | [address] [place], | | | | | | [place] [address] | | | | | | [phone] | | | +--------+ + + + [...] Telephone Encounter - Lakia Daugherty LPN - 07/03/2020 11:24 AM PDTCalled and spoke with patient's mom and notified her of the results. She was notified of the missed appointment last week. She states that he still complains of not being able to breathe well. She was transferred to [facility] to set up an appointment.Electro nically signed by Lakia Daugherty LPN at 07/03/2020 11:25 AM PDTTelephone Encounter - Payton Hanna do, CMA - 06/27/2020 10:10 AM PDTCalled and left a message for patient to call us back. elephone Enc ounter - Payton Robertson CMA - 06/26/2020 9:59 AM PDT----- Message from Chanell Cross sent at 06/26/2020 7:29 AM PDT ----- Please contact patient/guardian about message below: I am checking Dr. Dudley's results while he is away. Your ECHO is essentially normal. You can discuss the results in greater detail at your upcoming visit with Dr. Dudley.Electron ically signed by Payton Robertson CMA at 06/26/2020 9:59 AM PDTdocumented in this encounte r Plan of Treatment +--------+---------+ + + + [...]
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
--- OUTSIDE RECORDS SUMMARY | ~2020-07-13 | XMS | Encounter Summary ---
Demographics + + + | Address | [address] | | | [place] [address] | + + + | Home Phone [...] Author + + + | Author | [facility] | | | and [place] | + + + | Organization | [facility] | | | [...] | | | | | [place] [address] | | + + + + + Care Team Providers + +------+ + | Care Tool And Die Machinist Name | Role | Phone | + [...] FU | | 2019 | | [facility] | [address] | | | | | [address] | [place] | | | | | [place] | [address] | | | | | [address] | | | | | | [phone] | | | +--------+ + + + [...] to this hospital. The duplicate MRN is [id number]. A request to submerg e charts has already been submitted. SITUATION Transitional Care Management for follow-up on discharge from: Inpatient Acute Hospital Eligible for TCM Billing LOS [id number]? yes Patient questions/concerns needing provider review: 1st [...] Center 07/05/2019 11:30 Chance Dudley MD [id number] documented in this encounter Plan of Treatment +--------+---------+ + + + | Date | Type | Specialty | Care Team | Description | +--------+---------+ + + + | 07/22/ | Office | Family Medicine | Chance Dudley, | | | 2019 | Visit | | MD [address] | | | | | | [place] | | | | | | [address] | | | | | | | | +--------+---------+ + + + documented as of this encounter Visit Diagnoses Not on filedocumented in this encounter"
--- OUTSIDE RECORDS SUMMARY | ~2020-07-13 | XMS | Encounter Summary ---
Demographics + + + | Address | [address] | | | [place] [address] | + + + | Home Phone | | + + + | Preferred Language | Unknown | + + + | Marital Status | Single | + + + | Shinto Affiliation | Unknown | + + + | Race | White | + + + | Ethnic Group | Not or | + + + Author + + + | Author | [facility] | | | and [place] | + + + | Organization | [facility] | | | [...] [place] | | | | | [place] [address] | | + + + + + Care Team Providers + +------+ + | Care C S S Representative Name | Role | Phone | [...] Description | +--------+---------+ + + + | 03/27/ | Office | [facility] | DuchesneChance, | Klinefelter syndrome | | 2018 | Visit | [facility] [place] | [address] | (Primary Dx); | | | | [address] | [place], [place] | Migraine without | | | | [place], [place] | [address] | aura and without | | | | [address] | | status migrainosus, | | | | [phone] | | not intractable; | | | | | | Type 2 diabetes | | | | | | mellitus without | | | | | | complication, | | | | | | without long-term | | | | | | current use of | | | | | | insulin ([facility]); | | | | | | Hypogonadism in | | | | | | male; Need for | | | | | | 23-polyvalent | | | | | | pneumococcal | | | | | | polysaccharide | | | | | | vaccine | +--------+---------+ + + + Social History [...] + + + | Blood Pressure | 122/86 | 03/27/2018 9:39 AM | | | | | PDT | | + + + + + | Pulse | 66 | 03/27/2018 9:39 AM | | | | | PDT | | + + + + + | Temperature | 36.8 C (98.2 F) | 03/27/2018 9:39 AM | | | | | PDT | | + + + + + | Respiratory Rate | 16 | 03/27/2018 9:39 AM | | | | | PDT | | + + + + + | Oxygen Saturation | 97% | 03/27/2018 9:39 AM | | | | | PDT | | + + + + + | Inhaled Oxygen | - | - | | | Concentration | | | | + + + + + | Weight | 167.4 kg (369 lb 0.8 | 03/27/2018 9:39 AM | | | | oz) | PDT | | + + + + + | Height | 185.4 cm (6' 0.99") | 03/27/2018 9:39 AM | | | | | PDT | | + + + + + | Body Mass Index | 48.7 | 03/27/2018 9:39 AM | | | | | PDT | | + + + + + documented in this encounter Patient Instructions Patient Instructions Chance Dudley MD - 03/27/2018 9:45 AM PDTKeep up the great work w ith the diet, activity and weight loss! Follow-up with [facility] as planned. Continue the testosterone as you are doing. Please stop by the lab for blood work in May. You need to be fasting - nothing to eat or drink other than water or black coffee for 10 hours. No alcohol for 24 hours. The labs at the [facility] ([address]) and at our [facility] ([address]) are open 7 AM Tuesday-Tuesday. The [facility] lab is also open 8 AM-4 PM on Saturdays (use [facility] entrance). documented in this encounter Progress Notes Chance Dudley MD - 03/27/2018 9:45 AM PDTFormatting of this note might be different fr om the original. Subjective: Patient ID: Stiven Davila is a 32 y.o. male here for Klinefelters and headaches. Acc ompanied by mom. HPI His headaches resolved. Mom attributes to improvement in lifestyle - eating much healthier (cut way back on sugar and carbs), increased sleep (9 hours per night), physically active c aring for grandmother's property. He did not tolerate topamax. He is using testosterone as prescribed. They both feel his energy is better and feels stro nger. He used to isolate himself in himself and is now getting out and about more. He is meeting with contract negotiation manager once per month through [facility]. He has appointment with [facility] bariatric group April 10. He continues to lose weight (though per our scales he is stable). He was told he needs to lose 17 lbs prior to surgery. He is due for an eye exam. Patient's medications, allergies, past medical, surgical, social and family histories were obtained and reviewed as appropriate. Review of Systems Objective: BP 122/86 | Pulse 66 | Temp 36.8 C (98.2 F) (Temporal) | Resp 16 | Ht 1.854 m (6' 0 .99") | Wt (!) 167.4 kg (369 lb 0.8 oz) | SpO2 97% | BMI 48.70 kg/m Physical Exam Constitutional: Very pleasant, well developed, NAD Neck: Neck supple. No thyromegaly present. Cardiovascular: Normal rate, regular rhythm, normal heart sounds and intact distal pulses. Exam reveals no gallop and no friction rub. No murmur heard. Pulmonary/Chest: Breath sounds normal. No respiratory distress. He has no wheezes. He has n o rales. Lymphadenopathy: He has no cervical adenopathy. Assessment: Stiven was seen today for follow-up. Diagnoses and all orders for this visit: Klinefelter syndrome: Tolerating testosterone and symptomatically improving. - Continue testosterone - testosterone 12.5 mg/1.25 g actuation (1%) gel; Apply 4 Act topically Daily. - Testosterone, Total; Future - Hemoglobin and Hematocrit; Future Migraine without aura and without status migrainosus, not intractable: Improved. Normal e xam without red flag s/s - Monitor Type 2 diabetes mellitus without complication, without long-term current use of insulin ([facility] C): New diagnosis. He is in denial about diagnosis but does agree to continue to work on d iet, exercise and weight loss. Refuses medications - I'm ok with this given A1c is just 7.1 %. Vaccines updated today. Due for eye exam - Diet, exercise, weight loss strategies reviewed - Hemoglobin A1C; Future - Lipid Panel; Future Need for 23-polyvalent pneumococcal polysaccharide vaccine: Given today Return in about 3 months (around 06/26/2018), or if symptoms worsen or fail to improve. with fasting labs prior Saurabh Dudley MD Lakia Rodriguez LP N - 03/27/2018 9:45 AM PDTPatient is here for a monthly follow up. After obtaining informed consent, the immunization is given by Vic BALDWIN. documented in this encounter Plan of Treatment +--------+---------+ + + + | Date | Type | Specialty | Care Team | Description | +--------+---------+ + + + | 07/22/ | Office | Family Medicine | Chance Dudley, | | | 2019 | Visit | | MD Manolo BULLARD | | | | | | [place] | | | | | | [id number] | | | | | | | | +--------+---------+ + + + + +------+--------+ + + | Name | Type | Priori | Associated Diagnoses | Order Schedule | | | | ty | | | + +------+--------+ + + | Lipid Panel | Lab | Routin | Type 2 diabetes | Expected: | | | | e | mellitus without | 07/26/2018, Expires: | | | | | complication, | 05/28/2019 | | | | | without long-term | | | | | | current use of | | | | | | insulin (HCC) | | + +------+--------+ + + documented as of this encounter Results Hemoglobin and Hematocrit (06/26/2018 11:03 AM PDT) + + + [...] + + + + | Hematocrit | 37.4 (L) | 40.0 - 51.0 % | [facility] | | | | | | [address] [address] | [place] | [phone] | | [facility] | | [address] | | | - LABORATORY | | | | + + + + + Hemoglobin A1C (06/26/2018 11:03 AM PDT) + +---------+ + + + | Component | Value | Ref Range | Performed | Pathologist | | | | | At | Signature | + +---------+ + + + | Hemoglobin | 7.5 (H) | 4.3 - 6.0 % | [facility] | | | A1c | | | [facility] | | [facility] | | | | | [facility] - | | | | | | LABORATORY | | + +---------+ + + + | Estimated | 169 | mg/dL | [facility] | | | Average | | | [...] + | [facility] | [address] | [place] | [phone] | | [facility] | | [address] | | | - LABORATORY | | | | + + + + + Testosterone, Total (06/26/2018 11:03 AM PDT) + +---------+ + + + | Component | Value | Ref Range | Performed | Pathologist | | | | | At | Signature | + +---------+ + + + | Testosteron | 139 (L) | 168 - 758 ng/dL | [facility] | | | e | | | [...] [address] | [place] | [phone] | | [facility] | | [address] | | | - LABORATORY | | | | + + + + + documented in this encounter Visit Diagnoses + + | Diagnosis | + + | Klinefelter syndrome - Primary Klinefelter's syndrome | + + | Migraine without aura and without status migrainosus, not intractable Migraine | | without aura, without mention of intractable migraine without mention of status | | migrainosus | + + | Type 2 diabetes mellitus without complication, without long-term current use of | | insulin (HCC) | + + | Hypogonadism in male | + + | Need for 23-polyvalent pneumococcal polysaccharide vaccine | + + documented in this encounter
--- OUTSIDE RECORDS SUMMARY | ~2020-07-13 | XMS | Encounter Summary ---
Demographics + + + | Address | [address] | | | [place] [address] | + + + | Home Phone | | + + + | Preferred Language | Unknown | + + + | Marital Status | Single | + + + | Caodaism Affiliation | Unknown | + + + [...] | | | | | [place], [place] [address] | | + + + + + Care Team Providers + +------+ + | Care Commercial Pest Control Technician Name | Role | Phone | + +------+ + | Chance Dudley MD | PCP | | + +------+ + Encounter Details +--------+ + + + + | Date | Type | Department | Care Team | Description | +--------+ + + + + | 08/17/ | Imaging | [facility] | Provider, | | | 2019 | Exam | [facility] | MD Dewayne [address] | | | | | IMAGING [address] | [address] | | | | | [address] [place] | [place] [address] | | | | | [place] [address] | | | | | | [phone] | | | +--------+ + + + [...] [facility] | | | | | | [place] | | | | | | [...] SHOULDER LEFT 2 + | Routin | 07/09/2015 | | Results for this | | VW | e | 12:00 AM | | procedure are in the | | | | PDT | | results section. | + +--------+ + + + documented in this encounter Results XR Shoulder Left 2 + Vw (07/09/2015 12:00 AM PDT) + + | Specimen | + + | | + + + + + | Narrative | Performed At | + + + | External films for comparison only | [facility] | | | | | No results will be in the chart. | | + + + + +---------+ + + | Performing | Address | City/State/Zipcode | Phone Number | | Organization | | | | + +---------+ + + | [facility] | | | | + +---------+ + + documented in this encounter Visit Diagnoses Not on filedocumented in this encounter"
--- OUTSIDE RECORDS SUMMARY | ~2020-07-13 | XMS | Encounter Summary ---
Demographics + + + | Address | [address] | | | [place] [address] | + + + | Home Phone | | + + + | Preferred Language | Unknown | + + + | Marital Status | Single | + + + | Temple Affiliation | Unknown | + + + [...] [place] | | | | | [place] [address] | | + + + + + Care Team Providers + +------+ + | Care Operator Cavity Pump Name | Role | Phone | + [...] | | | [address] | [place] | | | | | | [address] [place] | [place], [place] | | | | | | [place], [place] | [address] | | | | | | [address] | Phone: | | | | | | Phone: | [phone] | | | | | | [phone] | Fax: | | | | | | Fax: | [phone] | | | | | | [phone] | | +--------+ + + + + + Reason for Visit + + + | Reason | Comments | + + + | Wound Check | | + + + Encounter Details +--------+---------+ + + + | Date | Type | Department | Care Team | Description | +--------+---------+ + + + | 06/12/ | Office | [facility] | Chance Dudley, | Chronic wound of | | 2013 | Visit | [facility] | [address] | extremity (Primary | | | | [address] | [place] | Dx); Prediabetes | | | | [place] | [address] | | | | | [address] | | | | | | [phone] | | | +--------+---------+ + + + [...] diabetes Not being physically active Being , -Swazi, , , or Diagnosing Prediabetes Prediabetes has [...] t seem to heal Have blurry vision [phone] Annel[facility], [address] [place] [address], [place] [address]. All rights reserve d. This information is [...] have at each me al and snack. [phone] [facility], [address] [place] [address], [place] [address]. All rights reserve d. This information is [...] uIU/mL Final Testing performed on the Kaylin [employer] Access Analyzer. HEMOGLOBIN A1C 06/05/2013 6.4* 4.3 [...] [place] | | | | | | [address] | | | | | | | [...]
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
--- OUTSIDE RECORDS SUMMARY | ~2020-07-13 | XMS | Encounter Summary ---
Demographics + + + | Address | [address] | | | [place] [address] | + + + | Home Phone [...] | | | | | [place] [address] | | + + + + + Care Team Providers + +------+ + | Care Insurance Specialist Name | Role | Phone | + +------+ + | Chance Dudley MD | PCP | | + +------+ + Reason for Visit + +--------+ + | Reason | Onset | Comments | | | Date | | + +--------+ + | ED Follow-up | 05/18/ | after ED follow up call | | | 2020 | | + +--------+ + Encounter Details +--------+ + + + + | Date | Type | Department | Care Team | Description | +--------+ + + + + | 05/18/ | Telephone | [facility] | Noa Lopes | ED Follow-up (after | | 2020 | | MED CTR CASE | | ED follow up call) | | | | MANAGEMENT [address] | | | | | | [place], | | | | | | [place] [address] | | | | | | [phone] | | | +--------+ + + + [...] this encounter Miscellaneous Notes Telephone Encounter - Noa Lopes - [facility]/18/2020 2[facility] Date of visit: 05/18/2020 Patient complaints: alcohol intoxication Diagnosis: alcoholic intoxication without complication; chronic chest wall pain No answer. Left VM for callback. Electronically signed by: Noa Lopes 05/18/2020 2:02 PM PDT documented in this enco unter Plan of Treatment +--------+---------+ + + + | Date | Type | Specialty | Care Team | Description | +--------+---------+ + + + | 07/22/ | Office | Family Medicine | Chance Dudley, | | 2019 | Visit | | MD Manolo BULLARD | | | | | | [place] | | | | | | [address] | | | | | | | | +--------+---------+ + + + documented as of this encounter Visit Diagnoses Not on filedocumented in this encounter"
--- OUTSIDE RECORDS SUMMARY | ~2020-07-13 | XMS | Encounter Summary ---
Demographics + + + | Address | [address] | | | [place] [address] | + + + | Home Phone [...] + + + | Author | [facility] | | | and [place] | + + + | Organization | [facility] | | [...] | | | | | [place] [address] | | + + + + + Care Team Providers + +------+ + | Care Substation Inspector Name | Role | Phone | [...] + + | 09/03/ | Office | [facility] | Chance Dudley, | Chronic wound of | | 2013 | Visit | [facility] | [address] | extremity (Primary | | | | [address] | [place] [facility] [place] | Dx); Prediabetes; | | | | [place] | [address] | Screening, lipid; | | | | [address] | | Need for influenza | | | | [phone] | | vaccination | +--------+---------+ + + [...] C) rectal, after two days on antibiotics 5763-2684 [place] [address]. All rights reserve d. This information is [...] [place] | | | | | | [address] | | | | | | | [...] + | [facility] | [address] | [place] | [phone] | | [facility] | | [address] | | | - LABORATORY | | | | + + + + + | [facility] | [address] | [place], [place] | | | [facility] | | [id number] | | | - LABORATORY | | [...] [address] | [place] | [phone] | | [facility] | | [address] | | | - LABORATORY | | | | + + + + + | [facility] | [address] | [place] | | | [facility] | | [address], [facility] | | | - LABORATORY | | | | + + + + + Hemoglobin A1C (09/18/2013 2:42 PM PDT) + + + + + + | Component | Value | Ref Range | Performed | Pathologist | | | | | At | Signature | + + + + + + | Hemoglobin | 6.4 (H)Comment: | 4.3 - 5.8 % | [facility] | | | A1c | DIABETIC PATIENT [...] [address] | [place] | [phone] | | [facility] | | [address] | | | - LABORATORY | | | | + + + + + | [facility] | [address] | [place], [place] | | | [facility] | | [address], [facility] | | | - LABORATORY | | [...]
--- OUTSIDE RECORDS SUMMARY | ~2020-07-13 | XMS | Encounter Summary ---
Demographics + + + | Address | [address] | | | [place] [address] | + + + | Home Phone [...] | | | | | [place] [address] | | + + + + + Care Team Providers + +------+ + | Care Clinical Services Specialist Name | Role | Phone | [...] + + | 07/18/ | Telephone | [facility] | Santi Mckeon | Coordination Of Care | | 2019 | | SURGERY [address] | MD [address] | | | | | [place], [place] | [address] [facility] | | | | | [address] | [place] [address] | | | | | [phone] | [phone] | | | | | | | [...] RN - 07/18/20 5:17 PM REAI called [facility] Radiology and spoke with Debby to schedule MRI for patient. Ne xt available appointment is 08/17/19 at 12:30 pm with check in at 12:00 pm. I read back appoi ntment information to Debby and she verbalized correct and confirmed. I called patient and advised him of appointment information. He states he is currently at [facility] and unable to write the appointment information [...] [place] | | | | | | [address] | | | | | | | | +--------+---------+ + + + documented as of this encounter Visit Diagnoses Not on filedocumented in this encounter"
--- OUTSIDE RECORDS SUMMARY | ~2020-07-13 | XMS | Encounter Summary ---
Demographics + + + | Address | [address] | | | [place] [address] | + + + | Home Phone [...] Author + + + | Author | [facility] | | | and [place] | + + + | Organization | [facility] | | | [...] [place] | | | | | [place] [address] | | + + + + + Care Team Providers + +------+ + | Care Director Of Physical Security Name | Role | Phone | + [...] + + | 12/13/ | Office | [facility] | Chance Dudley, | Other acute | | 2019 | Visit | [facility] | [address] | pulmonary embolism | | | | [address] | [place] | without acute cor | | | | [place] | [address] | pulmonale (HCC) | | | | [address] | | (Primary Dx); | | | | [phone] | | Pulmonary embolism, | | | [...] present | | | | | | ([facility]); S/P | | | | | | [...] a blood clot that has traveled to [facility]. The symptoms include: Chest pain Trouble breathing [...] a cut, or vagina Date Last Reviewed: 12/29/201619996992-1686 [employer]. [address] [place] [address]. All righ ts reserved. This information is [...] stopping, starting, or changing any prescription or xchb-ekz-rrahpdl (OTC) medicines . This includes herbal medicines [...] products such as ginkgo, Q10, garlic, or Weidman's wort 3. Don't make major changes in [...] nose or a cut, for example. A aniyzeq-qsbc-jkrraf period or bleeding between periods Coughing or throwing up blood or something that looks like coffee grounds Nausea, bloating,or diarrhea Bleeding hemorrhoids Dark red or brown urine Red or black tarry stools Red or xgmzw-reb-zzdx marmolejo on the skin that get larger [...] your doctor right away or go to [facility]. Rash Itching Swelling Trouble swallowing or breathing [NOTE: This information topic may not include all directions, precautions, medical conditio ns, medicine/food interactions, and warnings for this medicine. Check with your doctor, nurs e, or pharmacist for any questions that you may have.] Date Last Reviewed: 04/28/201619992078-2678 [employer]. [address] [place] [address]. All righ ts reserved. This information is [...] ly. Chewables. For post-bariatric surgery nystatin (MYCOSTATIN) 834134 UNIT/GM powder Apply 1 Application topically 2 [...] [place] | | | | | | [address] | | | | | | | [...] + + + | [facility] | [address] | [place] [address] | [phone] | | [place] | | | [...]
--- OUTSIDE RECORDS SUMMARY | ~2020-07-13 | XMS | Encounter Summary ---
Demographics + + + | Address | [address] | | | [place] [address] | + + + | Home Phone | | + + + | Preferred Language | Unknown | + + + | Marital Status | Single | + + + | Orthodox Affiliation | Unknown | + + + [...] [place] | | | | | [place] [address] | | + + + + + Care Team Providers + +------+ + | Care Captain Room Service Name | Role | Phone | + +------+ + | Chance Dudley MD | PCP | | + +------+ + Encounter Details +--------+ + + + + | Date | Type | Department | Care Team | Description | +--------+ + + + + | 08/09/ | Hospital | [facility] | Chance Dudley, | Hypogonadism in male | | 2016 | Encounter | [facility] | [address] | | | | | [address] | [place] | | | | | [place] | [address] | | | | | [address] | | | | | | [phone] | | | +--------+ + + + [...] [place] | | | | | | [address] | | | | | | | | +--------+---------+ + + + documented as of this encounter Procedures + +--------+ + + + | Procedure Name | Priori | Date/Time | Associated Diagnosis | Comments | | | ty | | | | + +--------+ + + + | TESTOSTERONE, TOTAL | Routin | 08/09/2016 | Hypogonadism in | Results for this | | | e | 10:03 AM | male | procedure are in the | | | | PDT | | results section. | + +--------+ + + + | COMPREHENSIVE | Routin | 08/09/2016 | Hypogonadism in | Results for this | | METABOLIC PANEL | e | 10:03 AM | male | procedure are in the | | [...] 12 | 7 - 18 mg/dL | [facility] | | | | | | [facility] | | | | | | MEDICAL | | | | | | CENTER - | | | | | | LABORATORY | | + + + + + + | Creatinine | 0.76 | 0.60 - 1.30 | [place] | | | | | mg/dL | [facility] | | | | | | MEDICAL | | | | | | CENTER - | | | | | | LABORATORY | | + + + + + + | eGFR, | >60Comment: GLOMERULAR | >=60 | [facility] | | | non- | FILTRATION | mL/min/1.73m2 | [facility] | | | [place] | RATE,ESTIMATED | | MEDICAL | | | | mL/min/1.30p0Xyfj than | | CENTER - | | [...] 3.7 | 3.2 - 5.0 g/dL | [facility] [...] [address] | [place] | [phone] | | [facility] | | [address] | | | - LABORATORY | | | | + + + + + Testosterone, Total (08/09/2016 10:03 AM PDT) + +--------+ + + + | Component | Value | Ref Range | Performed | Pathologist | | | | | At | Signature | + +--------+ + + + | Testosteron | 19 (L) | 168 - 758 ng/dL | [facility] | | | e | | | [facility] | | [...] [address] | [place] | [phone] | | [facility] | | [address] | | | - LABORATORY | | | | + + + + + documented in this encounter Visit Diagnoses + + | Diagnosis | + + | Hypogonadism in male | + + documented in this encounter"
--- OUTSIDE RECORDS SUMMARY | ~2020-07-13 | XMS | Encounter Summary ---
Demographics + + + | Address | [address] [facility] [address] | | | [place] [address] | + + + | Home Phone [...] [place] | | | | | [place] [address] | | + + + + + Care Team Providers + +------+ + | Care Readers' Advisory Service Librarian Name | Role | Phone | + [...] | | | | CENTER [address] | [place], [place] | unspecified area of | | | | [place], [place] | [address] | thoracic wall, | | | | [address] | | initial encounter | | | | [phone] | | (Primary Dx) | +--------+ + [...] Instructions Instructions Eric Almazan MD - 02/19/2020Use ldot-dkv-hfbgkuu medications as needed. Foll ow-up with your primary care provider as needed. Return for worsening symptoms. AttachmentsThe following attachments cannot be sent through Care Everywhere.Bruises (Contus ions) (Hong Konger)Soft Tissue Contusion (Hong Konger)documented in this encounter Medications at Time of [...] | 0 | | | | (MYCOSTATIN) 485331 | topically 2 times | | | [...] might be different from the o riginal. [facility] Stiven Davila Emergency Department Encounter Note [address] [place] [id number] PCP:Cash Dudley MD [phone] CHIEF COMPLAINT: Chief [...] History: Procedure Laterality Date CHOLECYSTECTOMY, LAPAROSCOPIC 09/14/2018 [facility] at time of sleeve gastrectomy ELBOW SURGERY Left 1988 Left elbow-pins put in GASTRIC SURGERY gastric sleeve SHOULDER ARTHROSCOPY Left 10/08/2016 Procedure: Left Shoulder Arthroscopy w/ Labral Repair and Capsular Shift; Surgeon: Candie Murguia DO; Location: [facility] MAIN OR SLEEVE GASTROPLASTY 09/14/2018 [facility] UPPER GASTROINTESTINAL ENDOSCOPY N/A 12/03/2019 Procedure: EGD; Surgeon: Keren Luna MD; Location: [facility] MEDICAL PROCEDURE UNIT 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 Chewables. For post-bariatric surgery nystatin (MYCOSTATIN) 280198 UNIT/GM powder Apply 1 Application topically 2 [...] Merged History Encounter Raised by mom in [place], [place]. Father not involved, drug addict. Lives with mom and younger brother. Children: None Schooling: HS graduate, required specialized education plan. A couple courses in college. 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 Employment: Unemployed. Wants to work for "[employer]." He completed the [employer] ining for it. He first needs to [...] were reviewed along with EMS notes and senior living record s if applicable. (See chart for [...] with Flexeril and e ncouraged to take pyov-fxc-sloxjif medications for the pain. Asked him to [...] needed Contact information: [address] [place] [address] [facility]. Specialty: Emergency Medicine Why: If symptoms worsen Contact information: [address] [place] [phone] Discharge Medication List as of 02/19/2020 6:48 PM START taking these medications Details cyclobenzaprine (FLEXERIL) 10 mg tablet Take 1 tablet by mouth 3 times daily as needed for Muscle spasms for up to 14 days.Disp-20 tablet, R-0, Normal Eric Almazan MD 02/19/207 documented in this encou nter Plan of [...] [place] | | | | | | [address] | | | | | | | [...] L?MRN: | | | | | | [id number] | | | [id number] | | | riteri | | | [...] | | | otify/ | | | [id number] | | | [id number] | | | [...] + + | Performing | Address | City/State[facility] | Phone Number | | Organization [...] 11 | 9 - 23 mg/dL | [facility] | | | | | | [facility] | | | | | | MEDICAL | | | | | | CENTER - | | | | | | LABORATORY | | + + + + + + | Creatinine | 0.77 | 0.70 - 1.30 | [facility] | | | | | mg/dL | [facility] | | | | | | MEDICAL | | | | | | CENTER - | | | | | | LABORATORY | | + + + + + + | eGFR, | >60Comment: GLOMERULAR | >=60 | [facility] | | | non- | FILTRATION | mL/min/1.73m2 | [facility] | | | [facility] | RATE,ESTIMATED | | MEDICAL | | | | mL/min/1.88s4Cdxi than | | CENTER - | | [...] [address] | [place] | [phone] | | [facility] | | [address] | | | - LABORATORY | | [...] [address] | [place] | [phone] | | [facility] | | [address] | | | - LABORATORY | | [...]
--- OUTSIDE RECORDS SUMMARY | ~2020-07-13 | XMS | Encounter Summary ---
Demographics + + + | Address | [address] | | | [place] [address] | + + + | Home Phone [...] [place] | | | | | [place] [address] | | + + + + + Care Team Providers + +------+ + | Care Environmental Marketer Name | Role | Phone | + [...] | visit | CLINIC [address] | SCANNING COORDINATOR [address] | pulmonary embolism | | | | [address]VE [place] | [place] | without acute cor | | | | [address] | [address] | pulmonale (HCC) | | | | [phone] | | | +--------+ + + + [...] | : 1985 | Medical Record Number:[id number] | Author: FLORENCE Araujo | Date of [...] Clinic Preferred lab: Send INR reminders to: [facility]IPRA[facility]IC PHYSICIAN Comments: Assessment/Plan: 1. Other acute pulmonary embolism without acute cor pulmonale (HCC) - POCT PT/INR fingerstick See Anticoagulation Summary above. Warfarin schedule adjusted. [id number] Calendar and Anticoagulant instructions reviewed with the patient. Electronically signed by: FLORENCE Araujo 12/27/2019 at 12:23 PM Portions of this chart may have been created with [employer] voice recognition software. Occasi onal wrong-word or [...]
--- OUTSIDE RECORDS SUMMARY | ~2020-07-13 | XMS | Encounter Summary ---
Demographics + + + | Address | [address] | | | [place] [address] | + + + | Home Phone [...] [place] | | | | | [place] [address] | | + + + + + Care Team Providers + +------+ + | Care Sponsorship Coordinator Name | Role | Phone | + [...] + + | Closed | Specialty | Internal | Diagnoses | Sushant Dudley Jules, | | | Services | Medicine - | Juan | Chance Brewster MD | Ricky Zhong, | | | Required | Endocrinology | syndrome | [address] | PhD [address] | | | | , Diabetes & | Hypogonadism | [address] | | | | Metabolism | in male | [place], [place] | [place], | | | | | | [address] | [place] [address] | | | | | | Phone: | Phone: | | | | | | [phone] | [phone] | | | | | | Fax: | Fax: | | | | | | [phone] | [phone] | +--------+ + + + + + Reason for Visit +--------+ + | Reason | Comments | +--------+ + | Other | Discuss Bariatric surgery. | +--------+ + Encounter Details +--------+---------+ + + + | Date | Type | Department | Care Team | Description | +--------+---------+ + + + | 02/23/ | Office | [facility] | Chance Dudley, | Klinefelter syndrome | | 2018 | Visit | [facility] | [address] | (Primary Dx); | | | | [address] | [place] | Hypogonadism in | | | | [place] | [address] | male; Vitamin D | | | | [address] | | deficiency; BMI | | | | [phone] | | 45.0-49.9, adult | | | | | | ([facility]); Migraine | | | | | | without aura and | | | | | | without status | | | | | | migrainosus, not | | | | | | intractable; | | | | | | Impaired fasting | | | | | | glucose | +--------+---------+ + + + Social History [...] + + + | Blood Pressure | 132/80 | 02/23/2018 9:18 AM | | | | | PDT | | + + + + + | Pulse | 73 | 02/23/2018 9:18 AM | | | | | PDT | | + + + + + | Temperature | 36.4 C (97.6 F) | 02/23/2018 9:18 AM | | | | | PDT | | + + + + + | Respiratory Rate | 20 | 02/23/2018 9:18 AM | | | | | PDT | | + + + + + | Oxygen Saturation | 98% | 02/23/2018 9:18 AM | | | | | PDT | | + + + + + | Inhaled Oxygen | - | - | | | Concentration | | | | + + + + + | Weight | 167.4 kg (369 lb) | 02/23/2018 9:18 AM | | | | | PDT | | + + + + + | Height | 185.4 cm (6' 1") | 02/23/2018 9:18 AM | | | | | PDT | | + + + + + | Body Mass Index | 48.68 | 02/23/2018 9:18 AM | | | | | PDT | | + + + + + documented in this encounter Patient Instructions Patient Instructions Chance Dudley MD - 02/23/2018 9:30 AM PDTKeep up the great work w ith the weight loss! Have labs here today. Start the Topiramate as prescribed. It takes 2-3 weeks of consistent use to help improve t he headaches. Start the testosterone as prescribed. If you do not hear from the endocrinology office by next Tuesday - please call my office. For more information on Klinefelter's Syndrome - go to [email or web address] documented in this encounter Progress Notes Chance Dudley MD - 02/23/2018 9:30 AM PDTFormatting of this note might be different fr om the original. Subjective: Patient ID: Stiven Davila is a 32 y.o. male here for H Pylori, weight loss. Accompan ied by mom. HPI Mom was recently treated for H Pylori. They would like him tested as her doctor strongly a dvised it. No reflux, dyspepsia, N/V. His mom had gastric sleeve with good results. So he has been attending weight loss classes at [facility] once per month since November with plan to have gastric sleeve in May or June. Vinny moon has cut back on portion sizes and junk food. A little bit of exercise, but plans to start at gym soon. He has lost 12 lbs since starting this program. He has a migraine every 2-3 days for several years. Described as intense pain in forehead, typically bilateral. Not associated with nausea, vomiting, vision changes. Worse with rossy ght light. Dark room helps. Tylenol helps a little. He takes it every 2-3 days. Maxalt d id not help. Averages 8-9 hours sleep per night. Not sure if he snores. Not unusually tir ed during day. He was markedly low in Vit D and mildly iron deficient at [facility]. He is taking Vitamin D as prescribed. No abdominal pain, melena, hematochezia No family h/o clotting disorders. Patient's medications, allergies, past medical, surgical, social and family histories were obtained and reviewed as appropriate. Review of Systems Objective: BP 132/80 | Pulse 73 | Temp 36.4 C (97.6 F) (Temporal) | Resp 20 | Ht 1.854 m (6' 1 ") | Wt (!) 167.4 kg (369 lb) | SpO2 98% | BMI 48.68 kg/m Physical Exam Constitutional: He is oriented to person, place, and time. Very pleasant, youthful face, obese, NAD Eyes: EOM are normal. Pupils are equal, round, and reactive to light. No scleral icterus. Neck: Neck supple. No thyromegaly present. Cardiovascular: Normal rate, regular rhythm, normal heart sounds and intact distal pulses. Exam reveals no gallop and no friction rub. No murmur heard. Pulmonary/Chest: Breath sounds normal. No respiratory distress. He has no wheezes. He has n o rales. Musculoskeletal: He exhibits no edema or tenderness (no calf tenderness or palpable cords). Lymphadenopathy: He has no cervical adenopathy. Neurological: He is alert and oriented to person, place, and time. No cranial nerve deficit . Assessment: Stiven was seen today for other. 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 This was a new diagnosis for Stiven a nd his mom. - Educated on Klinefelter Syndrome, symptoms including developmental/cognitive delays & in fertility, testosterone replacement and side effects - Testosterone, Total; Future - Hemoglobin and Hematocrit; Future - Endocrinology, External - AMB Referral - testosterone 12.5 mg/1.25 g actuation (1%) gel; Apply 4 Act topically Daily. Vitamin D deficiency: Likely related to hypogonadism - Testosterone replacement - Continue Vit D replacement per [facility] BMI 45.0-49.9, adult (HCC): Weight is improving. [facility] bariatric surgery notes reviewed. Greatly appreciate their assistance - Diet, exercise, weight loss strategies reviewed - Start testosterone replacement which may help with weight - Continue with [facility] weight loss meetings Migraine without aura and without status migrainosus, not intractable: Normal exam without red flag s/s. - Educated on preventative measures. They would like to start medication. We agreed topa max is good choice as may also help with weight loss. - topiramate (TOPAMAX) 25 mg tablet; Take 25 mg by mouth nightly x 1 week, then increas e to 25 mg twice daily. To prevent migraines Impaired fasting glucose: Likely with diabetes. But only 1 lab to date in diabetic range. Will retest today - Hemoglobin A1C; Future No clear indication for H Pylori testing given asymptomatic. Reviewed pros/cons of stool t esting. They ultimately declined. Educated on warning signs. Return in about 1 month (around 03/26/2018). Saurabh Dudley MD documented in this e [...] | + + +--------+ + + | Endocrinology, | Outpatient | Routin | Juan | Ordered: 02/23/2018 | | External - AMB | Referral | e | syndrome | | | Referral | | | Hypogonadism in male | | + + +--------+ + + documented as of this encounter Results Hemoglobin and Hematocrit (02/23/2018 10:31 AM PDT) + + + + + [...] + | [facility] | [address] | [place] | [phone] | | [facility] | | [address] | | | - LABORATORY | | | | + + + + + Hemoglobin A1C (02/23/2018 10:31 AM PDT) + +---------+ + + + | Component | Value | Ref Range | Performed | Pathologist | | | | | At | Signature | + +---------+ + + + | Hemoglobin | 7.1 (H) | 4.3 - 6.0 % | [facility] | | | A1c | | | [facility] | | | | | | MEDICAL | | | | | | CENTER - | | | | | | LABORATORY | | + +---------+ + + + | Estimated | 157 | mg/dL | [facility] | | | Average | | | [facility] | | | Glucose | | | [...] [address] | [place] | [phone] | | [facility] | | [address] | | | - LABORATORY | | | | + + + + + Testosterone, Total (02/23/2018 10:31 AM PDT) + +--------+ + + + | Component | Value | Ref Range | Performed | Pathologist | | | | | At | Signature | + +--------+ + + + | Testosteron | 25 (L) | 168 - 758 ng/dL | [...] [address] | [place] | [phone] | | [facility] | | [address] | | | - LABORATORY | | | | + + + + + documented in this encounter Visit Diagnoses + + | Diagnosis | + + | Klinefelter syndrome - Primary Klinefelter's syndrome | + + | Hypogonadism in male | + + | Vitamin D deficiency Unspecified vitamin D deficiency | + + | BMI 45.0-49.9, adult (HCC) Body Mass Index 45.0-49.9, adult | + + | Migraine without aura and without status migrainosus, not intractable Migraine | | without aura, without mention of intractable migraine without mention of status | | migrainosus | + + | Impaired fasting glucose | + + documented in this encounter
--- OUTSIDE RECORDS SUMMARY | ~2020-07-13 | XMS | Encounter Summary ---
Demographics + + + | Address | [address] | | | [place] [address] | + + + | Home Phone [...] + + + | Author | [facility] | | | and [place] | + + + | Organization | [facility] | | [...] [address] [place] | | | | | [place] [address] | | + + + + + Care Team Providers + +------+ + | Care Auxiliary Engineer Name | Role | Phone | [...] Results | | 2017 | | [facility] | [address] | | | | | [address] | [place], [place] | | | | | [place], [place] | [address] | | | | | [address] | | | | | | [phone] | | | +--------+ + + + [...] [place] | | | | | | [address] | | | | | | | | +--------+---------+ + + + documented as of this encounter Visit Diagnoses Not on filedocumented in this encounter"
--- OUTSIDE RECORDS SUMMARY | ~2020-07-13 | XMS | Encounter Summary ---
Demographics + + + | Address | [address] [facility] [address] | | | [place] [address] | + + + | Home Phone | | + + + | Preferred Language | Unknown | + + + | Marital Status | Single | + + + | Mosque Affiliation | Unknown | + + + [...] [place] | | | | | [place] [address] | | + + + + + Care Team Providers + +------+ + | Care Pipe Turner Name | Role | Phone | + [...] + + | 07/06/ | Office | [facility] | Dann Irvin I, | Chronic left | | 2016 | Visit | [facility] [place] | PA-C [address] | shoulder pain | | | | [address] | [address] | (Primary Dx) | | | | [place], [place] | [place] [address] | | | | | [address] | [phone] | | | | | [phone] | | | +--------+---------+ + + + [...] less able to do your daily activities [id number] [employer]. [address] [place] [address]. All righ ts reserved. This information is [...] self. He has been seen previously at [facility] where he was ev aluated and [...] [place] | | | | | | [address] | | | | | | | [...] [address] | [place] | [phone] | | [facility] | | [address] | | | - IMAGING | | | | + + + + + documented in this encounter Visit Diagnoses + + | Diagnosis | + + | Chronic left shoulder pain - Primary Pain in joint, shoulder region | + + documented in this encounter
--- OUTSIDE RECORDS SUMMARY | ~2020-07-13 | XMS | Encounter Summary ---
Demographics + + + | Address | [address] | | | [place] [address] | + + + | Home Phone | | + + + | Preferred Language | Unknown | + + + | Marital Status | Single | + + + | Islam Affiliation | Unknown | + + + | Race | White | + + + | Ethnic Group | Not or | + + + Author + + + | Author | [facility] | | | and [place] | + + + | Organization | [facility] | | | and [place] | + + + | Address | Unknown | + + + | Phone | Unavailable | + + + Support + + + + + | Name | Relationship | Address | Phone | + + + + + | Mabel Eisenberg | ECON | [address] | | | | | [place] [address] | | + + + + + Care Team Providers + +------+ + | Care Coat Cutter Name | Role | Phone | + [...] + + | 12/17/ | Office | [facility] | Nadia Claire, | Other acute | | 2020 | Visit | [facility] [place] | [facility] [address] | pulmonary embolism | | | | [address] | [place], [place] | without acute cor | | | | [place], [place] | [address] | pulmonale (HCC) | | | | [address] | | (Primary Dx); | | | | [phone] | | Aviva-Toro tear; | | | [...] a blood clot that has traveled to [facility]. The symptoms include: Chest pain Trouble breathing [...] a cut, or vagina Date Last Reviewed: 12/29/201619990727-3307 [employer] [place]. [address] [place] [address], [place] [address]. All righ ts reserved. This information is [...] stopping, starting, or changing any prescription or qwsn-ecd-pykqigh (OTC) medicines . This includes herbal medicines [...] products such as ginkgo, Q10, garlic, or [place]'s wort 3. Don't make major changes in [...] nose or a cut, for example. A xchoxbd-iwtp-cjyjti period or bleeding between periods Coughing or throwing up blood or something that looks like coffee grounds Nausea, bloating,or diarrhea Bleeding hemorrhoids Dark red or brown urine Red or black tarry stools Red or uatzm-tgt-ncnp marmolejo on the skin that get larger [...] your doctor right away or go to [facility]. Rash Itching Swelling Trouble swallowing or breathing [NOTE: This information topic may not include all directions, precautions, medical conditio ns, medicine/food interactions, and warnings for this medicine. Check with your doctor, nurs e, or pharmacist for any questions that you may have.] Date Last Reviewed: 04/28/201619997079-3337 [employer] [place]. [address] [place] [address]. All righ ts reserved. This information is [...] has been changed since signin Order Audit [facility] enoxaparin (LOVENOX) 120 mg/0.8 mL injection (Taking) Inject 0.8 mLs under the skin every 12 hours for 7 days. Number of times this order has been changed since signin Order Audit [facility] Multiple Vitamins-Minerals (BARIATRIC MULTIVITAMINS/IRON PO) (Taking) Take 1 tablet by nicki th Daily. Chewables. For post-bariatric surgery Number of times this order has been changed since signin Order Audit [facility] ondansetron (ZOFRAN ODT) 4 mg disintegrating tablet (Taking) Take 1 tablet by mouth every 8 hours as needed for Nausea or Vomiting. Number of times this order has been changed since signin Order Audit [facility] pantoprazole (PROTONIX) 40 mg tablet (Taking) Take 1 tablet by mouth 2 times daily (before meals) for 7 days, THEN 1 tablet every morning (before breakfast) for 90 days. Number of times this order has been changed since signin Order Audit [facility] testosterone 12.5 mg/1.25 g actuation (1%) gel (Taking) Apply 4 Act topically Daily. Number of times this order has been changed since signin Order Audit [facility] warfarin (COUMADIN) 5 mg tablet (Taking) Take 2 tablets by mouth Daily. Number of times this order has been changed since signin Order Audit [facility] warfarin (COUMADIN) 5 mg tablet (Taking/Discontinued) Take 1.5 tablets by mouth Daily for 89 days. Number of times this order has been changed since signin Order Audit [facility] Past Medical History He has a past [...] other family member; Substance abuse in his [facility] er. Social History: Social History Socioeconomic History [...] Merged History Encounter Raised by mom in [place], [place]. Father not involved, drug addict. Lives with mom and younger brother. Children: None Schooling: HS graduate, required specialized education plan. A couple courses in college. 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 Employment: Unemployed. Wants to work for "[employer]." He completed the tra ining for it. [...] pulmonary embolism without acute cor pulmonale (HCC) Hntfj-gf-hjmf INR 1.2 today, PT 14.4. Increasing daily [...] made to ensure accuracy; however, inadvertent computerized nurse case management errors may be pre sent. documented in [...] GREEN | | | | | | [id number] | | | | | | | [...] + + | [address] | [address] | [place] [address] | [phone] | | [facility] | | | [...]
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
--- OUTSIDE RECORDS SUMMARY | ~2020-07-13 | XMS | Encounter Summary ---
Demographics + + + | Address | [address] | | | [place] [address] | + + + | Home Phone [...] + + | Author | [facility] | | | and [place] | + + + | Organization | [facility] | | | and [...] | | | | | [place] [address] | | + + + + + Care Team Providers + +------+ + | Care Counterintelligence Specialist Name | Role | Phone | [...] Description | +--------+--------+ + + + | 09/10/ | Refill | [facility] [place] [facility] | Chance Dudley, | Medication Refill | | 2019 | | [facility]IC[facility] [place] | [address] | | | | | [address] | [place] | | | | | [place], [place] | [address] | | | | | [address] | | | | | | [phone] | | | +--------+--------+ + + + [...] [place] | | | | | | [address] | | | | | | | | +--------+---------+ + + + documented as of this encounter Visit Diagnoses Not on filedocumented in this encounter"
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
--- OUTSIDE RECORDS SUMMARY | ~2020-07-13 | XMS | Encounter Summary ---
Demographics + + + | Address | [address] | | | [place] [address] | + + + | Home Phone | | + + + | Preferred Language | Unknown | + + + | Marital Status | Single | + + + | Christianity Affiliation | Unknown | + + + [...] | | | | | [place] [address] | | + + + + + Care Team Providers + +------+ + | Care Modeling Director Name | Role | Phone | + +------+ + | Chance Dudley MD | PCP | | + +------+ + Reason for Visit +---------+--------+ + | Reason | Onset | Comments | | | Date | | +---------+--------+ + | Results | 06/06/ | | | | 2012 | | +---------+--------+ + Encounter Details +--------+ + + + + | Date | Type | Department | Care Team | Description | +--------+ + + + + | 06/06/ | Telephone | [facility] [place] [facility] | Chance Dudley, | Results | | 2012 | | MEDICINE [place] | [address] | | | | | [address] | [place], [place] | | | | | [place], [place] | [address] | | | | | [address] | | | | | | [phone] | | | +--------+ + + + [...] Telephone Encounter - Chance Dudley MD - 06/06/2013 2:26 PM PDTLeft detailed voicemail on STIVEN's phone. Also spoke with mom Mabel. - Likely staph infection of his leg. Very important he take his antibiotics as prescribed. He should follow-up on June 13, sooner if he develops fever, N/V, worsening of infection. If not improving by next appointment, will consider MRI to evaluate for deep infection. - He has prediabetes. We will discuss treatment strategies at his upcoming appointment. - Kidney function and electrolytes are normal Saurabh Dudley MD documented in this e [...] | Diagnosis | + + | Prediabetes - Primary Other abnormal glucose | + + documented in this encounter"
--- OUTSIDE RECORDS SUMMARY | ~2020-07-13 | XMS | Encounter Summary ---
Demographics + + + | Address | [address] | | | [place] [address] | + + + | Home Phone [...] | | | | | [place] [address] | | + + + + + Care Team Providers + +------+ + | Care Payroll And Benefits Assistant Name | Role | Phone | [...] | 02/20/ | Telephone | [facility] [place] [facility] | Chance Dudley, | ED Follow-up | | 2020 | | MEDICINE [address] | [address] | | | | | AVE [place], | [place] | | | | | [place] [address] | [id number] | | | | | [phone] | | | +--------+ + + + [...] Cabrales RN - 02/21/2020 7:42 PM PDT [facility] ED follow up call Admission Date: 02/15/20 [...] with primary care 02/19/20 Discharge Instructions Use hpla-tsn-acwuyas medications as needed. Follow-up with your primary [...] [place] | | | | | | [address] | | | | | | | | +--------+---------+ + + + documented as of this encounter Visit Diagnoses Not on filedocumented in this encounter"
--- OUTSIDE RECORDS SUMMARY | ~2020-07-13 | XMS | Encounter Summary ---
Demographics + + + | Address | [address] | | | [place] [address] | + + + | Home Phone [...] [address] | | | | | [place] [address] | | + + + + + Care Team Providers + +------+ + | Care Professional Development Instructor Name | Role | Phone | [...] | in male | [place], [place] | [place], | | | | | | [address] | [place] [address] | | | | | | Phone: | Phone: | | | | | | [phone] | [phone] | | | | | | Fax: | Fax: | | | | | | [phone] | [phone] | +--------+ + + + + + Reason for Visit +--------+ + | Reason | Comments | +--------+ + | Other | Discuss Bariatric surgery. | +--------+ + Encounter Details +--------+---------+ + + + | Date | Type | Department | Care Team | Description | +--------+---------+ + + + | 02/23/ | Office | [facility] | Chance Dudley, | Klinefelter syndrome | | 2018 | Visit | MEDICINE [place] | [address] | (Primary Dx); | | | | [address] | [place] | Hypogonadism in | | | | [place] | [address] | male; Vitamin D | | | | [address] | | deficiency; BMI | | | | [phone] | | 45.0-49.9, adult | | | | | | ([facility]); Migraine | | | | | | [...] has been attending weight loss classes at [facility] once per month since November with plan [...] Vit D and mildly iron deficient at [facility]. He is taking Vitamin D as prescribed. [...] replacement - Continue Vit D replacement per [facility] BMI 45.0-49.9, adult (HCC): Weight is improving. [facility] bariatric surgery notes reviewed. Greatly appreciate their assistance - Diet, exercise, weight loss strategies reviewed - Start testosterone replacement which may help with weight - Continue with [facility] weight loss meetings Migraine without aura and [...] + | [facility] | [address] | [place] | [phone] | | [facility] | | [address] | | | - LABORATORY | | [...] [address] | [place] | [phone] | | [facility] | | [address] | | | - LABORATORY | | [...] [address] | [place] | [phone] | | [facility] | | [address] | | | - LABORATORY | | [...]
--- OUTSIDE RECORDS SUMMARY | ~2020-07-13 | XMS | Encounter Summary ---
Demographics + + + | Address | [address] | | | [place] [address] | + + + | Home Phone [...] [address] | | | | | [place] [address] | | + + + + + Care Team Providers + +------+ + | Care Infant Lead Teacher Name | Role | Phone | + +------+ + | Chance Dudley MD | PCP | | + +------+ + Encounter Details +--------+ + + + + | Date | Type | Department | Care Team | Description | +--------+ + + + + | 06/05/ | Hospital | [facility] | Chance Dudley, | Chronic wound of | | 2013 | Encounter | [facility] | [address] | extremity; Bilateral | | | | [address] [place] | [place], [place] | lower extremity | | | | [place], [place] | [address] | edema; Screening for | | | | [address] | | diabetes mellitus; | | | | [phone] | | Elevated blood | | | [...] [place] | | | | | | [address] | | | | | | | [...] + | [facility] | [address] | [place] | [phone] | | [facility] | | [address] | | | - LABORATORY | | | | + + + + + | [facility] | [address] | [place] | | | [facility] | | [address], [facility] | | | - LABORATORY [...] | Result | EPITHELIAL | | [facility] | | [...] | | | | | | Standards [place] | | | | | | Rifampin [...] | | | | | | Standards [place] | | | | | | Rifampin [...] | | | | | | Standards [place] | | | | | | Rifampin [...] | | | | | | Standards [place] | | | | | | Rifampin [...] + | [facility] | [address] | [place], [place] | [phone] | | [facility] | | [address] | | | - LABORATORY | | | | + + + + + | [facility] | [address] | [place], [place] | | | [facility] | | [address] [place] [address] | | | - LABORATORY | | [...] [address] | [place] | [phone] | | [facility] | | [address] | | | - LABORATORY | | | | + + + + + | [facility] | [address] | [place], [place] | | | [facility] | | [address] | | | - LABORATORY | [...] + | [facility] | [address] | [place] | [phone] | | [facility] | | [address] | | | - LABORATORY | | | | + + + + + | [facility] | [address] | [place] | | | [facility] | | [address], [facility] | | | - LABORATORY [...] | [facility] | | | | [facility] | | MEDICAL | | | [...] + | [facility] | [address] | [place], [place] | [phone] | | [facility] | | [address] | | | - LABORATORY | | | | + + + + + | [facility] | [address] | [place], [place] | | | [facility] | | [address] | | | - LABORATORY | [...] + | [facility] | [address] | [place] | [phone] | | [facility] | | [address] | | | - LABORATORY | | | | + + + + + | [facility] | [address] | [place], [place] | | | [facility] | | [address] | | | - LABORATORY | [...] | Result | WBC/HPFRARE EPITHELIAL | | [facility] | | | | CELLS/HPFMODERATE GRAM | [...] + | [facility] | [address] | [place] | [phone] | | [facility] | | [address] | | | - LABORATORY | | | | + + + + + | [facility] | [address] | [place] | | | [facility] | | [address] | | | - LABORATORY | [...] + | [facility] | [address] | [place], [place] | [phone] | | [facility] | | [address] | | | - LABORATORY | | | | + + + + + | [facility] | [address] | [place], [place] | | | [facility] | | [address], [facility] | | | - LABORATORY [...] [address] | [place] | [phone] | | [facility] | | [address] | | | - LABORATORY | | | | + + + + + | [facility] | [address] | [place], [place] | | | [facility] | | [address] | | | - LABORATORY | [...] + | [facility] | [address] | [place], [place] | [phone] | | [facility] | | [address] | | | - LABORATORY | | | | + + + + + | [facility] | [address] | [place], [place] | | | [facility] | | [id number] [place] [address] | | | - LABORATORY | | [...] + | [facility] | [address] | [place], [place] | [phone] | | [facility] | | [address] | | | - LABORATORY | | | | + + + + + | [facility] | [address] | [place] | | | [facility] | | [address] [place] [address] | | | - LABORATORY | | [...] + | [facility] | [address] | [place], [place] | [phone] | | [facility] | | [address] | | | - LABORATORY | | | | + + + + + | [facility] | [address] | [place], [place] | | | [facility] | | [address] | | | - LABORATORY | [...]
--- OUTSIDE RECORDS SUMMARY | ~2020-07-13 | XMS | Encounter Summary ---
Demographics + + + | Address | [address] | | | [place] [address] | + + + | Home Phone [...] Author + + + | Author | [facility] | | | and [place] | + + + | Organization | [facility] | | [...] [place] | | | | | [place] [address] | | + + + + + Care Team Providers + +------+ + | Care Teacher Asst Name | Role | Phone | + +------+ + | Chance Dudley MD | PCP | | + +------+ + Reason for Visit + + + | Reason | Comments | + + + | Arm Swelling | | + + + Encounter Details +--------+ + + + + | Date | Type | Department | Care Team | Description | +--------+ + + + + | 07/03/ | Emergency | [facility] | Radames Bruno, | Yellow jacket sting, | | 2018 | | [facility] | MD [address] | accidental or | | | | CENTER [address] | [facility] [place] | unintentional, | | | | [place], [place] | [place] [address] | initial encounter | | | | [address] | [phone] | (Primary Dx) | | | | [phone] | | | +--------+ + + + [...] + + + | Blood Pressure | 142/79 | 07/03/2018 7:46 PM | | | | | PDT | | + + + + + | Pulse | 85 | 07/03/2018 7:46 PM | | | | | PDT | | + + + + + | Temperature | 37.1 C (98.7 F) | 07/03/2018 7:46 PM | | | | | PDT | | + + + + + | Respiratory Rate | 16 | 07/03/2018 7:46 PM | | | | | PDT | | + + + + + | Oxygen Saturation | 97% | 07/03/2018 7:46 PM | | | | | PDT | | + + + + + | Inhaled Oxygen | - | - | | | Concentration | | | | + + + + + | Weight | 156 kg (344 lb) | 07/03/2018 7:46 PM | | | | | PDT | | + + + + + | Height | 182.9 cm (6') | 07/03/2018 7:46 PM | | | | | PDT | | + + + + + | Body Mass Index | 46.65 | 07/03/2018 7:46 PM | | | | | PDT | | + + + + + documented in this encounter Discharge Instructions Instructions Radames Bruno MD - 07/03/2018Ice pack to the area of swelling and redness Take the medicine as directed Off work tomorrow Return immediately if symptoms worsen or other concerns develop AttachmentsThe following attachments cannot be sent through Care Everywhere.Insect Sting, L ocal Reaction (Ukrainian)documented in this encounter Medications at Time of [...] + + + +---------+ + + | diphenhydrAMINE | Take 1 tablet by | 20 | 0 | 07/03/20 | | | (BENADRYL) 50 MG | mouth every 6 hours | tablet | | 18 | 8 | | tablet | as needed for | | | | | | | Itching (swelling) | | | | | | | for up to 30 doses. | | | | | + + + +---------+ + + | ibuprofen | Take 1 tablet by | 20 | 0 | 07/03/20 | | | (ADVIL,MOTRIN) 600 | mouth every 6 hours | tablet | | 18 | 8 | | MG tablet | for 5 days. | | | | | [...] encounter ED Notes Radames Bruno MD - 07/03/2018 8:19 PM PDTFormatting of this note might be different f rom the original. [facility] Stiven Davila Emergency Department Encounter Note [address] [place] [address] PCP:Chance Dudley MD [phone] CHIEF COMPLAINT Chief Complaint Patient presents with Arm Swelling HPI Stiven Davila is a 33 y.o. male who presents to the emergency department with left ar m swelling. This patient got stung by multiple yellow jackets at about 2:00 this afternoon. He developed swelling of his left forearm that just continued to swell and get red. He to ok 600 mg of ibuprofen about 5 hours ago. He says it started to feel little bit better now. No throat swelling. His voice is normal. No difficulty breathing. No lightheadedness. He has not had prior allergic reactions to bee stings in the past. PAST MEDICAL HISTORY Past Medical History: Diagnosis Date Left shoulder pain Obese Recurrent subluxation of left shoulder Shoulder strain Tear of left glenoid labrum Venous stasis Wears dentures full upper SURGICAL HISTORY Past Surgical History: Procedure Laterality Date ELBOW SURGERY Left 1988 Left elbow-pins put in SHOULDER ARTHROSCOPY Left 10/08/2016 Procedure: Left Shoulder Arthroscopy w/ Labral Repair and Capsular Shift; Surgeon: Candie Murguia DO; Location: [facility] MAIN OR CURRENT MEDICATIONS Discharge Medication List as of 07/03/2018 20:28 CONTINUE these medications which have NOT CHANGED Details acetaminophen (TYLENOL) 325 mg tablet Take by mouth.Historical Med testosterone 12.5 mg/1.25 g actuation (1%) [...] Social History Narrative Raised by mom in [place], [place]. Father not involved, drug addict. Lives with mom and younger brother. Children: None Schooling: HS graduate, required specialized education plan. A couple courses in college . He is on disability due to learning disability. Employment: Unemployed. Wants to work for "[employer]." He completed the [employer] for it. He first needs to get in better shape. REVIEW OF SYSTEMS All systems reviewed and found negative except what is in the HPI PHYSICAL EXAM VITAL SIGNS: BP 142/79 | Pulse 85 | Temp 37.1 C (98.7 F) (Oral) | Resp 16 | Ht 1.8 29 m (6') | Wt (!) 156 kg (344 lb) | SpO2 97% | BMI 46.65 kg/m Constitutional: Well developed, obese, No acute distress, Non-toxic appearance. HENT: Normocephalic, Atraumatic, Bilateral external ears normal, Tympanic membranes normal , Mucous membranes are moist, Nasal mucosa is normal. Oropharynx is clear. Eyes: PERRL, Conjunctiva normal, No discharge. Palpebral conjunctiva are pink. Neck: Normal range of motion, No tenderness, Supple, No stridor. Respiratory: Clear to auscultation bilaterally, No respiratory distress, No wheezing Chest: Non tender, no signs of trauma Cardiovascular: Normal heart rate, Normal rhythm, No murmurs appreciated. GI: Soft, Non tenderness, No peritoneal signs, No masses Extremities: Warm and well perfused, left forearm is moderately swollen, no joint swelling or deformity. Good ROM. Back: No CVAT, No tenderness of the thoracic or lumbar spine. Skin: Warm, Dry, mild erythema of his left forearm, No induration, No rash. Multiple tatt oos. Neurologic: Alert & oriented x 3, No focal motor or sensory deficits. Speech is clear. G ait is normal. ED COURSE & MEDICAL DECISION MAKING Pertinent Labs & Imaging studies reviewed. (See chart for details) The patient was seen and examined shortly after arriving in the emergency department. Hist ory and physical were obtained, vital signs were noted. This patient has a focal reaction t o an envenomation of his left forearm. I treated him with an additional dose of ibuprofen a nd Benadryl and Pepcid. Outpatient follow-up with primary care. No systemic symptoms. FINAL IMPRESSION 1. Yellow jacket sting, accidental or unintentional, initial encounter PLAN Follow-up Information Schedule an appointment as soon as possible for a visit with Chance Dudley MD. Specialty: Family Medicine Contact information: [address] [place] [address] Discharge Medication List as of 07/03/2018 20:28 START taking these medications Details diphenhydrAMINE (BENADRYL) 50 MG tablet Take 1 tablet by mouth every 6 hours as needed for Itching (swelling) for up to 30 doses.Disp-20 tablet, R-0, Print ibuprofen (ADVIL,MOTRIN) 600 MG tablet Take 1 tablet by mouth every 6 hours for 5 days.Disp -20 tablet, R-0, Print Radames Bruno MD 07/03/18 2211 [address]ully myers R N - 07/03/2018 7:45 PM PDTPt here for left arm swelling originating in left hand after wasp stings today. Swelling up to elbow. Denies throat tightness/swelling. documented in this encounter Plan of Treatment +--------+---------+ + + + | Date | Type | Specialty | Care Team | Description | +--------+---------+ + + + | 07/22/ | Office | Family Medicine | Chance Dudley, | | | 2019 | Visit | | MD [address] | | | | | | [place] | | | | | | [address] | | | | | | | | +--------+---------+ + + + documented as of this encounter Visit Diagnoses + + | Diagnosis | + + | Yellow jacket sting, accidental or unintentional, initial encounter - Primary | + + documented in this encounter Administered Medications + +--------+ +-------+------+------+ | Medication Order | MAR | Action | Dose | Rate | Site | | | Action | Date | | | | + +--------+ +-------+------+------+ | diphenhydrAMINE (BENADRYL) | Given | 07/03/20 | 50 mg | | | | capsule 50 mg 50 mg, Oral, ONCE, | | 18 8:29 | | | | | 07/03/18 at 2024, For 1 dose | | PM PDT | | | | + +--------+ +-------+------+------+ +---+---+ | | | +---+---+ + +-------+ +-------+---+---+ | famotidine (PEPCID) tablet 40 | Given | 07/03/20 | 40 mg | | | | mg 40 mg, Oral, ONCE, Tue07/03/18 | | 18 8:30 | | | | | at 2024, For 1 dose | | PM PDT | | | | + +-------+ +-------+---+---+ +---+---+ | | | +---+---+ + +-------+ +--------+---+---+ | ibuprofen (ADVIL,MOTRIN) tablet | Given | 07/03/20 | 600 mg | | | | 600 mg 600 mg, Oral, ONCE, Mon | | 18 8:29 | | | | | 07/03/18 at 2024, For 1 dose, Give | | PM PDT | | | | | with food., | | | | | | + +-------+ +--------+---+---+ +---+---+ | | | +---+---+ documented in this encounter
--- OUTSIDE RECORDS SUMMARY | ~2020-07-13 | XMS | Encounter Summary ---
Demographics + + + | Address | [address] | | | [place] [address] | + + + | Home Phone [...] | | | | | [place] [address] | | + + + + + Care Team Providers + +------+ + | Care Contact Representative Name | Role | Phone | [...] + | 07/06/ | Telephone | [facility] | Chance Dudley, | Lab Order | | 2019 | | [facility]IC[facility] | [address] | | | | | [address] | [place] | | | | | [place] | [address] | | | | | [address] | | | | | | [phone] | | | +--------+ + + + [...] 07/09/2019 9:00 AM PDTSpoke with Claudia pedraza [facility] lab that order will be cancelled.Electronically [...]
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
--- OUTSIDE RECORDS SUMMARY | ~2020-07-13 | XMS | Encounter Summary ---
Demographics + + + | Address | [address] | | | [place] [address] | + + + | Home Phone | | + + + | Preferred Language | Unknown | + + + | Marital Status | Single | + + + | Advent Affiliation | Unknown | + + + [...] | | | | | [place] [address] | | + + + + + Care Team Providers + +------+ + | Care Reel Film Inspector Name | Role | Phone | [...] Order | | 2019 | | [facility] | [address] | (PFT) | | | | [address] | [place] | | | | | [place] | [address] | | | | | [address] | | | | | | [phone] | | | +--------+ + + + [...] - 05/23/2020 11:56 AM PDTJody in the [facility] called and stated patient is schedule for a PFT on 05-30-20 and 9:00am bu t needs to have a new order placed as a [id number]. documented in this encounter Plan of Treatment [...]
--- OUTSIDE RECORDS SUMMARY | ~2020-07-13 | XMS | Encounter Summary ---
Demographics + + + | Address | [address] | | | [place] [address] | + + + | Home Phone | | + + + | Preferred Language | Unknown | + + + | Marital Status | Single | + + + | Gnosticism Affiliation | Unknown | + + + | Race | White | + + + | Ethnic Group | Not or | + + + Author + + + | Author | [facility] | | | and [place] | + + + | Organization | [facility] | | | and [...] | | | | | [place] [address] | | + + + + + Care Team Providers + +------+ + | Care Health Policy Manager Name | Role | Phone | + +------+ + | Chanec Dudley MD | PCP | | + [...] | Chance Brewster MD | [address] | | | | | left | [address] | [place], | | | | | shoulder | AVE [place] | [place] | | | | | pain | [place], [place] | [address] | | | | | Procedures | [address] | Phone: | | | | | MRI Shoulder | Phone: | [phone] | | | | | Left | [phone] | Fax: | | | | | Arthrogram w | Fax: | [phone] | | | | | Contrast | [phone] | | +--------+--------+ + + + + [...] Results | | 2015 | | [facility]IC[facility] | [address] | | | | | [address] | [place] | | | | | [place] | [address] | | | | | [address] | | | | | | [phone] | | | +--------+ + + + [...] PDTCalled the lab and the order of [id number] i s pending. elephone Encounter - Samantha [...] + | [facility] | [address] | [place] | [phone] | | [facility] | | [address] | | | - LABORATORY | | [...] [address] | [place] | [phone] | | [facility] | | [address] | | | - LABORATORY | | [...] + | [facility] | [address] | [place] | [phone] | | [facility] | | [address] | | | - LABORATORY | | [...] HISTORY:Chronic left shoulder pain COMPARISON: Shoulder | [facility] | | radiographs July 06 TECHNIQUE: Following the [facility] | | intraarticular injection of a dilute [...] ANTERIOR DISLOCATION. Dictated and Signed by: Dwayne Ovalles MD Electronically signed: 09/03/2016 9:49 AM | [...] ST. | [address] | [place], [place] | [phone] | | [facility] | | [address] | | | - IMAGING | | [...] followed by a 1 cc injection of [id number] confirmed | | intra-articular positioning of the [...] + + | Performing | Address | City/State/[facility] | Phone Number | | Organization | | | | + + + + + | [facility] | [address] | [place] | [phone] | | [facility] | | [address] | | | - IMAGING | | [...]
--- OUTSIDE RECORDS SUMMARY | ~2020-07-13 | XMS | Encounter Summary ---
Demographics + + + | Address | [address] | | | [place] [address] | + + + | Home Phone [...] MANRIQUE | | | | | [place] [address] | | + + + + + Care Team Providers + +------+ + | Care Environmental Services Supervisor Name | Role | Phone | + [...] + + | 12/03/ | Surgery | [facility] | Keren Orellana | EGD | | 2020 | | MED CTR MP INTRA OP | MD Alysha [address] | | | | [address] | [address] | | | | | [place], [place] | [place] | | | | | [address] | [address] | | | | | [phone] | | | +--------+---------+ + + + [...] information: [address] [place] [address] Discharge Medications New Medications Details ondansetron 4 [...] mouth Daily. Chewables. For post-bariatric surgery nystatin 218690 UNIT/GM powder Apply 1 Application topically 2 times daily. aka: MYCOSTATIN testosterone 12.5 mg/1.25 g actuation (1%) gel Apply 4 Act topically Daily. Studies With Pending Results: None Less than 30 minutes were spent on discharge and coordination of post-hospital care. Electronically signed by: Anival Hightower MD, 12/04/2019 7:32 AM [facility] documented in this encounter Discharge Instructions Instructions [...] vomiting, or vomiting blood Date Last Reviewed: 05/28/201619993027-7852 [employer]. [address] [place] [address], [place] [address]. All righ ts reserved. This information is [...] You can't be awakened Date Last Reviewed: 09/14/201619990762-1507 [employer]. [address] [place] [address]. All righ ts reserved. This information is [...] | 0 | | | | (MYCOSTATIN) 143092 | topically 2 times | | | [...] Khanna MD - 12/03/2019 4:10 PM PST [facility] [place] HOSPITALIST PROGRESS NOTE Patient: Stiven Davila : 1985: Age: 34 y.o. MedRec: [id number] Admission date: 12/02/2019 Hospital day # : [...] L/min Sugar Khanna MD 12/03/2019 4:10 PM [facility] documented in this enco unter H&P Notes Keren Orellana MD - 12/03/2019 11:27 AM PSTFormatting of this note might be differe nt from the original. Inpatient Gastroenterology Consult Note Date of Service: 12/03/19 Chief Complaint: Emesis; GI Bleeding; and Chest Pain Referring Physician: MD OCTAVIA Providing Physician: Randy Valverde MD [facility] History of Present Illness Stiven Davila [...] Capsular Shift; Surgeon: Candie Murguia DO; Location: [facility] MAIN OR SLEEVE GASTROPLASTY 09/14/2018 [facility] [...] Merged History Encounter Raised by mom in [place], [place]. Father not involved, drug addict. Lives with mom and younger brother. Children: None Schooling: HS graduate, required specialized education plan. A couple courses in college. 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 Employment: Unemployed. Wants to work for "[employer]." He completed the tra ining for it. [...] ly. Chewables. For post-bariatric surgery nystatin (MYCOSTATIN) 416882 UNIT/GM powder Apply 1 Application topically 2 [...] Daily. Chewables. For post-bariatric surgery nystatin (MYCOSTATIN) 020526 UNIT/GM powder Apply 1 Application topically 2 [...] Myers MD - 12/02/2019 5:03 PM PST [facility] M[facility] [place] HOSPITALIST HISTORY & PHYSICAL Patient: Stiven Davila : 1985: Age: 34 y.o. MedRec: [id number] Admission date: 12/02/2019 Hospital day # : [...] Capsular Shift; Surgeon: Candie Murguia DO; Location: [facility] MAIN OR SLEEVE GASTROPLASTY 09/14/2018 [facility] FAMILY HISTORY: family history includes Diabetes in [...] by: Sugar Khanna MD 12/02/2019 5:03 PM [facility] documented in this enco unter Consult Notes Jeremy, Keren Encarnacion MD - 12/03/2019 8:20 AM PSTFormatting of this note might be differe nt from the original. Inpatient Gastroenterology Consult Note Date of Service: 12/03/19 Chief Complaint: Emesis; GI Bleeding; and Chest Pain Referring Physician: DR. WALLACE Providing Physician: Randy Valverde MD [facility] History of Present Illness Stiven Davila [...] Capsular Shift; Surgeon: Candie Murguia DO; Location: [facility] MAIN OR SLEEVE GASTROPLASTY 09/14/2018 [facility] [...] disability. Employment: Unemployed. Wants to work for "[employer]." He completed the [employer] for it. He first needs to get [...] ly. Chewables. For post-bariatric surgery nystatin (MYCOSTATIN) 183793 UNIT/GM powder Apply 1 Application topically 2 [...] medications. Pt was up at bedside with blasting entry specialist to urinate and reports that he is feeling very dizzy. MD notified. Electronically signed by Gloria Kingston RN at 12:14 PM Eric Rodriguez MD - 12/02/2019 11:14 AM PST [facility] Stiven Davila Emergency Department Encounter Note [address] [place] [id number] PCP:Chance Dudley MD [phone] CHIEF COMPLAINT: Chief Complaint Patient presents with [...] Capsular Shift; Surgeon: Candie Murguia DO; Location: [facility] MAIN OR SLEEVE GASTROPLASTY 09/14/2018 [facility] CURRENT MEDICATIONS SHOER Home Medications Medication Sig acyclovir (ZOVIRAX) 400 MG tablet take 1 tablet by mouth five times a day AT FIRST SIGN S OF COLD SORE OUTBREAK (Patient not taking: Reported on 12/02/2019) acyclovir (ZOVIRAX) 400 MG tablet Take 400 mg by mouth 5 times daily. Multiple Vitamins-Minerals (BARIATRIC MULTIVITAMINS/IRON PO) Take 1 tablet by mouth Marika ly. Chewables. For post-bariatric surgery nystatin (MYCOSTATIN) 211474 UNIT/GM powder Apply 1 Application topically 2 [...] Merged History Encounter Raised by mom in [place], [place]. Father not involved, drug addict. Lives with mom and younger brother. Children: None Schooling: HS graduate, required specialized education plan. A couple courses in college. 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 Employment: Unemployed. Wants to work for "[employer]." He completed the tra ining for it. [...] were reviewed along with EMS notes and long-term record s if applicable. (See chart for [...] a gastric sleeve that was done at [facility]. Patient reports that he drank last night [...] Discussed the case with Dr. Espinoza of [facility] stroenterology. Recommended Protonix twice daily, that he [...] discharge plans. STIVEN reports he lives on [address] with his mother Mabel. He reports the home being ground leve l at the entrance. No stairs inside the home. The bathroom has a tub shower. STIVEN reports being independent in his ADL's. He does not use any DME. His PCP is Dr Dudley and he uses the [facility] pharmacy. STIVEN's mother will transport him home when stable for discharge. Dispo: Home with mother, no needs Electronically signed by: Amy Almodovar 12/03/2019 3:44 PM -C Instructions Provati on - Jeremy, Keren Encarnacion MD - 12/03/2019 11:13 AM PSTDischarge Instructions for Upper End oscopy Patient: Stiven Davila : 1985 Acct: [id number] Exam Date: Tuesday, December 03, 2019 Doctor: [...] If unable to reach your physician, call [facility] Emergency Department at Ext. [phone] Your doctor [...] Medical Student - 12/03/2019 7:39 AM PST [facility] [place] Medical Student PROGRESS NOTE Patient: Stiven Davila : 1985: Age: 34 y.o. MedRec: [id number] Admission date: 12/02/2019 Hospital day # : [...] with vomiting. Plan #Hematemesis #Chest pain Consider Vaiva Tanvi tear. Patient presented with hematemesis following [...] Inferior leads Confirmed by MANUEL HOLLIS, NOREEN ([id number]) on 12/03/2019 6:33:55 AM CBC with Differential [...] Roderick Rios, Medical Student 12/03/2019 7:39 AM [facility] lan of Chanell Loyola RN - 12/03/2019 [...] PM PST Giovanni is being admitted to [facility]. He is without distr ess on arrival. [...] AGARWAL | | | | | | [id number] | | | | | | | [...] + +--------+ + + + | *TERMED* UT UPPER GI | Routin | 12/03/2019 | [...] d At | + +--------- -----+ | [facility] | [facility] | | [facility] CenterGastroenterologyPatient Name: Stiven Davila | AMBIKA Rick | | kathleenProcedure Date: 12/03/2019 11:13 AMMRN: [id number] | | | Number: [id number] of : 1985Note Status: | | | FinalizedAttending MD: KEREN ORELLANA [facility]cedure Type: | | | Upper GI [...] | | 11:13 AMNumber of Addenda: 0 [facility] | | |Impression: | | | - [...] |Number of Addenda: 0 | | | [facility] | | + +--------- -----+ + +---------+ + + | Performing | Address | City/State/[facility]code | Phone Number | | Organization [...] | | | | mmol/L | [facility] | | | | | | [...] | 0.74 | 0.70 - 1.30 | [facility] | | | | | mg/dL | [facility] | | | | | | MEDICAL | | | | | | CENTER - | | | | | | LABORATORY | | + + + + + + | eGFR, | >60Comment: GLOMERULAR | >=60 | [facility] | | | non- | FILTRATION | mL/min/1.73m2 | [facility] | | | [place] | RATE,ESTIMATED | | MEDICAL | | | | mL/min/1.74q0Ypor than | | CENTER - | | [...] + | [facility] | [address] | [place] | [phone] | | [facility] | | [address] | | | - LABORATORY | | [...] [address] | [place] | [phone] | | [facility] | | [address] | | | - LABORATORY | | [...] | Correlation with endoscopic findings is recommended. NAL:[facility]:C2NR | | | GROSS DESCRIPTION: The [...] LABORATORY: The technical component was performed by [employer] | | | [employer], [address] [place] [address] (Ross Furnace Operator: | | | Florinda Mueller MD; CLIA# [id number]). Professional interpretation was | | | performed by [employer] [address], [place] [address], [address] | | | [place] [address] [address] (Ross Furnace Operator: Teo | | | Max Kang MD; CLIA# [id number]). Diagnostician: Kaelyn Martinez MD | | | Pathologist Electronically Signed 12/04/2019 | | + + + + +---------+ + + | Performing | Address | City/State/[facility]code | Phone Number | | Organization [...] + | [facility] | [address] | [place] | [phone] | | [facility] | | [address] | | | - LABORATORY | | [...] + | [facility] | [address] | [place] | [phone] | | [facility] | | [address] | | | - LABORATORY | | [...] | | |Dictated and Signed by: Zeeshan sIbell MD | | Electronically signed: 12/02/2019 1:24 [...] dated | | 12/02/2019 11:53 AMHISTORY: ZAK MARREROOHIO[facility] CENTERJoy PAINComparison: 06/30/2019TECHNIQUE: A | | single portable [...] | | | | | | [employer] | | | | | [...] + | [facility] [facility] | [address] | [place] | [phone] | | [facility] | | [address] | | | - LABORATORY | | [...] + + | Performing | Address | City/State/[facility]code | Phone Number | | Organization | | | | + + + + + | [facility] | [address] | [place] | [phone] | | [facility] | | [address] | | | - LABORATORY | | [...] 13 | 9 - 23 mg/dL | [facility] | | | | | | [facility] | | | | | | MEDICAL | | | | | | CENTER - | | | | | | LABORATORY | | + + + + + + | Creatinine | 0.75 | 0.70 - 1.30 | [facility] | | | | | mg/dL | [facility] | | | | | | MEDICAL | | | | | | CENTER - | | | | | | LABORATORY | | + + + + + + | eGFR, | >60Comment: GLOMERULAR | >=60 | [facility] | | | non- | FILTRATION | mL/min/1.73m2 | [facility] | | | [place] | RATE,ESTIMATED | | MEDICAL | | | | mL/min/1.05k2Lbtm than | | CENTER - | | [...] [address] | [place] | [phone] | | [facility] | | [address] | | | - LABORATORY | | [...] [address] | [place] | [phone] | | [facility] | | [address] | | | - LABORATORY | | [...] MD | | | | | | ([id number]) on 12/03/2019 | | | | | [...]
--- OUTSIDE RECORDS SUMMARY | ~2020-07-13 | XMS | Encounter Summary ---
Demographics + + + | Address | [address] | | | [place] [address] | + + + | Home Phone | | + + + | Preferred Language | Unknown | + + + | Marital Status | Single | + + + | Anabaptist Affiliation | Unknown | + + + [...] MANRIQUE | | | | | [place] [address] | | + + + + + Care Team Providers + +------+ + | Care Vertical Punch Operator Name | Role | Phone | [...] + + | 11/01/ | Office | [facility] | Chance Dudley, | Radicular low back | | 2012 | Visit | [facility] [place] | [address] | pain (Primary Dx); | | | | [address] | [place] | Right leg | | | | [place] | [address] | paresthesias; Calf | | | | [address] | | cramp | | | | [phone] | | | +--------+---------+ + + + [...] so you are not leaning toward the [employer] wheel. A small pillow or rolled towel [...] bladder control Numbness in the groin area 8223-4818 Annelise Haque, [address] [place] [address]. All rights reserve d. This information is [...] [place] | | | | | | [address] | | | | | | | [...]
--- OUTSIDE RECORDS SUMMARY | ~2020-07-13 | XMS | Encounter Summary ---
Demographics + + + | Address | [address] | | | [place] [address] | + + + | Home Phone | | + + + | Preferred Language | Unknown | + + + | Marital Status | Single | + + + | Presybeterian Affiliation | Unknown | + + + | Race | White | + + + | Ethnic Group | Not or | + + + Author + + + | Author | Located Within [facility] | | | and [place] | + + + | Organization | Located Within [facility] | | [...] | | | | | [place], [place] [address] | | + + + + + Care Team Providers + +------+ + | Care Ssis Architect Name | Role | Phone | + +------+ + PCP | Unavailable | + +------+ + Encounter Details +--------+ + + + + | Date | Type | Department | Care Team | Description | +--------+ + + + + | 05/14/ | [facility] | [facility] | Addie, | | | 2006 | Encounter | MED CTR EMERGENCY | Rich Lua MD [address] | | | | | [place] [address] | [place] | | | | | [place] | [place] [address] | | | | | [address] | [phone] | | | | | [phone] | | | +--------+ + + + [...] [place] | | | | | | [address] | | | | | | | | +--------+---------+ + + + documented as of this encounter Visit Diagnoses Not on filedocumented in this encounter"
--- OUTSIDE RECORDS SUMMARY | ~2020-07-13 | XMS | Encounter Summary ---
Demographics + + + | Address | [address] | | | [place] [address] | + + + | Home Phone [...] | | | | | [place] [address] | | + + + + + Care Team Providers + +------+ + | Care Channel Lip Wetter Name | Role | Phone | + [...] + | 05/26/ | Telephone | [facility] | Chance Dudley, | Referral | | 2020 | | [facility] | [address] | | | | | [address] | [place], [place] | | | | | [place], [place] | [address] | | | | | [address] | | | | | | [phone] | | | +--------+ + + + [...] [place]EN | | | | | | [address] | | | | | | | [...] MD 06/09/2020 10:31 | | | [facility] | | |IMPRESSION: Spirometry is consistent with [...] 10:31 AM | | |PDT | | |[facility] | | + + + documented in this encounter Visit Diagnoses + + | Diagnosis | + + | SOB (shortness of breath) - Primary Shortness of breath | + + | Mild intermittent asthma without complication Unspecified asthma | + + documented in this encounter"
--- OUTSIDE RECORDS SUMMARY | ~2020-07-13 | XMS | Encounter Summary ---
Demographics + + + | Address | [address] | | | [place] [address] | + + + | Home Phone [...] | | | | | [place] [address] | | + + + + + Care Team Providers + +------+ + | Care Car Detailer Name | Role | Phone | + +------+ + | Chance Dudley MD | PCP | | + +------+ + Reason for Visit +---------+--------+ + | Reason | Onset | Comments | | | Date | | +---------+--------+ + | Results | 02/24/ | | | | 2017 | | +---------+--------+ + Encounter Details +--------+ + + + + | Date | Type | Department | Care Team | Description | +--------+ + + + + | 02/24/ | Telephone | [facility] [place] [facility] | Chance Dudley, | Results | | 2018 | | [facility] [place] | [address] | | | | | [address] | [place], [place] | | | | | [place], [place] | [address] | | | | | [address] | | | | | | [phone] | | | +--------+ + + + [...] this encounter Miscellaneous Notes Telephone Encounter - Corine Brown RN - 03/21/2018 3:28 PM PDTSpoke with patient, he is not willing to check his blood sugar. States he has cut out most of his sugar in preporation for weight loss surgery. Patient took the topamax for a week and then stopped stating it made his breathing difficul t. Says Breathing was progressively worse over the course of the week, breathing improved after stopping the Topamax. States he has not had any headaches since stopping the Topamax, thinks they may have been related to all the sugar he had been eating. States he is tolerating the testosterone fine. Follow up scheduled for 03/27 elephone Encount er - Corine Brown RN - 03/06/2018 4:00 PM PDTI left a message for the patient to re turn my call. ele phone Encounter - Corine Brown RN - 02/27/2018 10:42 AM PDTSpoke with patient's mom, she says that STIVEN eats dinner with them, but during the day he goes to the corner store and buys a lot of junk food. She says he is going to classes to have weightloss surgery, and has lost 12lbs. The employees at the local store also don't let him buy as much junk food anym ore. She says they have tried to talk to him before about progressing to diabetes and delarosa ing his diet and testing his blood sugars, but he did not seem to understand it. Agrees to come in prior to appointment with Dr Dudley to review diet and exercise. Electronically s igned by Corine Brown RN at 02/27/2018 10:48 AM PDTTelephone Encounter - Christy Brown RN - 02/24/2018 1:49 PM PDTI left a message for the patient to return my call. Cece ctronically signed by Corine Brown RN at 02/24/2018 1:49 PM PDTTelephone Encounter - Chance Dudley MD - 02/24/2018 1:00 PM PDTWill you please let Stiven and his mom know that his blood sugars are in diabetes range. Fortunately they are fairly well controlled. I wan t him to follow-up with you to learn more about diabetes, diet and exercise. And both of us next month to follow-up on diabetes and follow-up on testosterone and topamax treatment. Thanks! Saurabh Dudley MD documented in this [...] GRE[place] | | | | | | [id number] | | | | | | | | +--------+---------+ + + + documented as of this encounter Visit Diagnoses + + | Diagnosis | + + | Type 2 diabetes mellitus without complication, without long-term current use of | | insulin (HCC) | + + documented in this encounter"
--- OUTSIDE RECORDS SUMMARY | ~2020-07-13 | XMS | Encounter Summary ---
Demographics + + + | Address | [address] | | | [place] [address] | + + + | Home Phone [...] | | | | | [place] [address] | | + + + + + Care Team Providers + +------+ + | Care Artificial Plastic Eye Maker Name | Role | Phone | + +------+ + | Chance Dudley MD | PCP | | + +------+ + Reason for Visit + +--------+ + | Reason | Onset | Comments | | | Date | | + +--------+ + | Eye Exam | 10/26/ | | | | 2017 | | + +--------+ + Encounter Details +--------+ + + + + | Date | Type | Department | Care Team | Description | +--------+ + + + + | 10/26/ | Telephone | [facility] [place] [facility] | Chance Dudley, | Eye Exam | | 2018 | | MEDICINE [facility] | [address] | | | | | [address] | [place] | | | | | [place] | [address] | | | | | [address] | | | | | | [phone] | | | +--------+ + + + [...] this encounter Miscellaneous Notes Telephone Encounter - Dara Larkin RN - 10/26/2018 9:13 AM PSTRequest made for las t Eye exam results. TTelephone Encounter - Dara Larkin RN - 10/26/2018 9:13 AM PST----- Message from Max Dudley MD sent at 09/26/2018 11:52 PDT ----- Regarding: eye exam Will you please update Epic with eye exam. He had done at [facility] in [place]. Thanks! Saurabh Dudley MD documented in thi s encounter Plan of [...] GREEN | | | | | | [address] | | | | | | | | +--------+---------+ + + + documented as of this encounter Visit Diagnoses Not on filedocumented in this encounter"
--- OUTSIDE RECORDS SUMMARY | ~2020-07-13 | XMS | Encounter Summary ---
Demographics + + + | Address | [address] | | | [place] [address] | + + + | Home Phone [...] | | | | | [place] [address] | | + + + + + Care Team Providers + +------+ + | Care Plumber Pipe Fitting Name | Role | Phone | + [...] + | 01/07/ | Telephone | [facility] | Chance Dudley, | Shortness of Breath | | 2020 | | [facility] [place] | [address] | | | | | [address] | [place] | | | | | [place] | [address] | | | | | [address] | | | | | | [phone] | | | +--------+ + + + [...]
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
--- OUTSIDE RECORDS SUMMARY | ~2020-07-13 | XMS | Encounter Summary ---
Demographics + + + | Address | [address] | | | [place] [address] | + + + | Home Phone [...] | | | | | [place] [address] | | + + + + + Care Team Providers + +------+ + | Care Research Biologist Name | Role | Phone | + +------+ + PCP | Unavailable | + +------+ + Encounter Details +--------+ + + + + | Date | Type | Department | Care Team | Description | +--------+ + + + + | 05/18/ | [facility] | [facility] | Haresh Lemus | | | 2012 | Encounter | MED CTR EMERGENCY | MD [address] | | | | | [place] [address] | [place] | | | | | [place] | [place] [address] | | | | | [address] | [phone] | | | | | [phone] | | | +--------+ + + + [...] Lemus MD - 05/18/2013 12:47 PM PDT [place], [place] [address] Patient Name: STVIEN DAVILA Provider: Unit #: [id number] Location: : 1985 DATE: 05/18/2013 PRIMARY PHYSICIAN: [...] Rory Lemus MD Emergency Medicine JOB #: [id number] EXT JOB #:[id number] <<Signature on File>> Bridget Lemus MD0 05/30/13 [...] [place] | | | | | | [address] | | | | | | | [...] Performed At | + + + | [facility] Diagnostic Imaging | [place] | | Department [address] [facility] | | [ rep [address]] [ rep [facility] | | [facility]] Signed | - IMAGING | | | | | Patient Name: STIVEN DAVILA Physician: | | | AUBREE : 1985 Age: 28 Sex: M Unit #: [id number] | | | Exam Date: 05/18/13 Location: ER | | | Report #: [id number] Page: | | | %(RAD)RES..mtdd.print.filter("pg") of %(RAD) | | | RES..mtdd.print.filter("tpg") | | | | | | Accession Number: [id number] | | | LEFT TIBIA/FIBULA, 05/18/2013 CLINICAL [...] Transcribed Date/Time: 05/18/2013 15:53 | | | Cardiovascular Operating Room Nurse: <<Signature on File>> | | | | | | Les Garcia MD05/19/13 9779 <Electronically signed by Les Garcia | | | MD> Les Garcia MD 05/18/13 0382 Cardiovascular Operating Room Nurse: | | | Placeling Bxlmqkbpbsyeg64/21/13 0483 | | + + + + + + + + | Performing | Address | City/State/Zipcode | Phone Number | | Organization | | | | + + + + + | [facility] | [address] | [place] | [phone] | | [facility] | | [address] | | | - IMAGING | | | | + + + + + documented in this encounter Visit Diagnoses Not on filedocumented in this encounter
--- OUTSIDE RECORDS SUMMARY | ~2020-07-13 | XMS | Encounter Summary ---
Demographics + + + | Address | [address] | | | [place] [address] | + + + | Home Phone [...] | | | | | [place] [address] | | + + + + + Care Team Providers + +------+ + | Care Rubber Stamp Die Inspector Name | Role | Phone | [...] + | 07/19/ | Telephone | [facility] | Nadia Claire, | Follow-up | | 2019 | | MEDICINE [facility] | BEE TENDER [address] | | | | | [address] | [place], [place] | | | | | [place], [place] | [address] | | | | | [address] | | | | | | [phone] | | | +--------+ + + + [...]
--- OUTSIDE RECORDS SUMMARY | ~2020-07-13 | XMS | Encounter Summary ---
Demographics + + + | Address | [address] | | | [place] [address] | + + + | Home Phone | | + + + | Preferred Language | Unknown | + + + | Marital Status | Single | + + + | [employer] Affiliation | Unknown | + + + [...] [place] | | | | | [place] [address] | | + + + + + Care Team Providers + +------+ + | Care Registered Appraiser Name | Role | Phone | + +------+ + | Chance Dudley MD | PCP | | + +------+ + Reason for Visit + + + | Reason | Comments | + + + | Chest Pain | | + + + | Shortness of Breath | | + + + Encounter Details +--------+ + + + + | Date | Type | Department | Care Team | Description | +--------+ + + + + | 10/01/ | Emergency | [facility] | [place], | Chest pain in adult | | 2017 | | [facility] | [address] | (Primary Dx) | | | | CENTER [address] | ASHVIN WILLETT MD | | | | | [place] | [address] | | | | | [address] | | | | | | [phone] | | | +--------+ + + + [...] + + + | Blood Pressure | 104/75 | 10/01/2017 8:56 PM | | | | | PDT | | + + + + + | Pulse | 91 | 10/01/2017 8:56 PM | | | | | PDT | | + + + + + | Temperature | 36.2 C (97.1 F) | 10/01/2017 6:50 PM | | | | | PDT | | + + + + + | Respiratory Rate | 15 | 10/01/2017 8:56 PM | | | | | PDT | | + + + + + | Oxygen Saturation | 99% | 10/01/2017 8:56 PM | | | | | PDT | | + + + + + | Inhaled Oxygen | - | - | | | Concentration | | | | + + + + + | Weight | 154.2 kg (340 lb) | 10/01/2017 6:50 PM | | | | | PDT | | + + + + + | Height | 185.4 cm (6' 1") | 10/01/2017 6:50 PM | | | | | PDT | | + + + + + | Body Mass Index | 44.86 | 10/01/2017 6:50 PM | | | | | PDT | | + + + + + documented in this encounter Discharge Instructions AttachmentsThe following attachments cannot be sent through Care Everywhere.Chest Pain, Unc ertain Cause (Russian)documented in this encounter Medications at Time of [...] + + + +---------+ + + | rizatriptan | Take 1 tablet by | 9 | 1 | 04/19/20 | 03/29/201 | | (MAXALT-SHOE REPAIRER) 10 mg | mouth as needed for | tablet | | 17 | 8 | | disintegrating | Migraine (Take 1 tab | | | | | | tablet | at onset of | | | | | | | headache; may repeat | | | | | | | in 2 hours if | | | | | | | symptoms persist, | | | | | | | max dose 2 tabs in | | | | | | | 24 hours.). May | | | | | | | repeat in 2 hours if | | | | | | | needed | | | | | + + + +---------+ + + documented as of this encounter ED Notes Amparo Romo RN - 10/01/2017 6:49 PM PDTStarted to have chest pain around 1700 tonig ht after getting home from work. Midsternal. Also c/o shortness of breath. Nothing he did ma de it better or worse. Wasn't doing anything strenuous today. 324 ASA given in route.Electro nically signed by Amparo Romo RN at 10/01/2017 6:50 PM PDTMaxKenney wilkerson MD - 02/2017 6:44 PM PDT [facility] [place] Emergency Department Encounter Note [address] [place] [address] PCP:Chance Dudley MD ED10 CHIEF COMPLAINT: Chief Complaint Patient presents with Chest Pain Shortness of Breath HPI St[place] is a 32 y.o. male who presents to the Emergency Department with burning left sided chest pain that has been going on for the last two hours. This began when he go t home from work. 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 arted having burning pain that worsens with movement and exertion. He became concerned abou t the pain and called EMS. No other complaints at this time Having irregular bowel movements recently and constipation alternating with loose stools. PAST MEDICAL & SURGICAL HISTORY Past Medical History: Diagnosis Date Ankle sprain Dizziness Left shoulder pain Lymphadenopathy Obese Recurrent subluxation of left shoulder Shoulder strain Tear of left glenoid labrum Venous stasis Wears dentures full upper Past Surgical History: Procedure Laterality Date ELBOW SURGERY Left 1988 Left elbow-pins put in SHOULDER ARTHROSCOPY Left 10/08/2016 Procedure: Left Shoulder Arthroscopy w/ Labral Repair and Capsular Shift; Surgeon: Candie Murguia DO; Location: [facility] MAIN OR CURRENT MEDICATIONS Previous Medications RIZATRIPTAN (MAXALT-SHOE REPAIRER) 10 MG DISINTEGRATING TABLET Take 1 tablet by mouth as needed f or Migraine (Take 1 tab at onset of headache; may repeat in 2 hours if symptoms persist, max dose 2 tabs in 24 hours.). May repeat in 2 hours if needed ALLERGIES Allergies Allergen Reactions Cephalexin Shortness Of [...] Smoker Smokeless tobacco: Never Used Alcohol use Yes Comment: Twice a month 10 beers Drug use: No Sexual activity: Not Currently Partners: Female Other Topics Concern None Social History Narrative Raised by mom in [place], [place]. Father not involved, drug addict. Lives with mom and younger brother. Children: None Schooling: HS graduate, required specialized education plan. A couple courses in college . He is on disability due to learning disability. Employment: Unemployed. Wants to work for "[employer]." He completed the [employer] for it. He first needs to get in better shape. REVIEW OF SYSTEMS Review of Systems Constitutional: Negative for chills and fever. HENT: Negative for hearing loss and tinnitus. Respiratory: Negative for cough, sputum production and shortness of breath. Cardiovascular: Positive for chest pain. Gastrointestinal: Negative for nausea and vomiting. As in history of present illness. A 10 system review was otherwise negative. PHYSICAL EXAM VITAL SIGNS: (first vital signs):Temp: 36.2 C (97.1 F) Pulse: 91 Resp: 17 SpO2: 98 % BP : 147/65 Body mass index is 44.86 kg/m. Constitutional: male patient, pleasant but heavy set and appears to have an elevated BMI, alert and appropriate, conversant with nurse and staff. HEENT: Atraumatic, patient follows me around the room with their eyes, PERRL, Oropharynx s hows no redness, moist mucus membranes. Neck: Supple with full range of motion. No JVD, lymphadenopathy, or meningismus. Respiratory: Good air movement bilaterally. No wheezes, no rales. Patient's work of [employer] rivka is normal. Cardiovascular: Normal S1 S2. No rubs or murmurs Abdomen: Soft, nontender. No rebound, guarding, or masses. Bowel tones normal. No pulsa tile masses Extremities: Nontender. No edema, No calf asymmetry. Present distal pulses. Skin: Warm, Dry, No obvious rashes. Capillary refill is brisk <3 seconds and shows good p erfusion on areas of visible skin. Neurologic: Alert & oriented. Cranial nerves II-XII intact. No focal deficits. Gait is n ormal. Speech is normal. Psychiatric: Normal mood, affect and judgement. No evidence of suicidal or homicidal idea tion at this time. LABS Results for orders placed or performed during the hospital encounter of 10/01/17 CBC with Differential Result Value Ref Range WBC 12.6 (H) 4.0 - 11.0 K/uL RBC 4.50 4.30 - 5.70 M/uL Hgb 12.0 (L) 13.5 - 18.0 g/dL Hct 37.7 (L) 40.0 - 51.0 % MCV 83.7 83.0 - 101.0 fL MCH 26.7 (L) 28.0 - 35.0 pg MCHC 31.9 (L) 32.0 - 36.0 g/dL RDW-CV 15.5 (H) <15.0 % Platelet Count 297 140 - 440 K/uL MPV 7.1 fL % Neutrophils 74.3 45.0 - 82.0 % % Lymphocytes 17.8 (L) 20.0 - 45.0 % % Monocytes 5.0 4.0 - 12.0 % % Eosinophils 2.3 0.0 - 5.0 % % Basophils 0.6 0.0 - 1.0 % Absolute Neutrophils 9.40 (H) 1.80 - 8.50 K/uL Absolute Lymphocytes 2.20 0.60 - 3.20 K/uL Absolute Monocytes 0.60 0.00 - 1.00 K/uL Absolute Eosinophils 0.30 0.00 - 0.40 K/uL Absolute Basophils 0.10 0.00 - 0.10 K/uL Comprehensive Metabolic Panel Result Value Ref Range NA 140 136 - 149 mmol/L K 3.9 3.5 - 5.1 mmol/L CL 105 98 - 109 mmol/L CO2 28 24 - 31 mmol/L ANION GAP 7 3 - 16 mmol/L GLUCOSE 133 (H) 70 - 109 mg/dL BUN 10 7 - 18 mg/dL Creatinine, Serum/Plasma 0.75 0.60 - 1.30 mg/dL eGFR if not >60 >=60 mL/min/1.73m2 CALCIUM 9.0 8.3 - 10.5 mg/dL ALBUMIN 3.6 3.2 - 5.0 g/dL BILIRUBIN TOTAL 0.3 0.1 - 1.5 mg/dL Total protein 7.2 6.0 - 7.8 g/dL AST 24 10 - 42 U/L ALT 19 6 - 45 U/L ALK PHOS 52 40 - 110 U/L GLOBULIN 3.6 2.1 - 3.8 g/dL Albumin/Globulin ratio 1.0 0.8 - 2.0 BUN/CREA 13.3 Troponin I Result Value Ref Range Troponin I <0.01 <0.06 ng/mL ECG 12 lead Result Value Ref Range INTERPRETATION TEXT Not Confirmed IMAGING STUDIES Recent imaging: Recent Results (from the past 360 hour(s)) XR Chest AP Portable Narrative XR CHEST AP PORTABLE 10/01/2017 6:50 PM HISTORY: CP. COMPARISON: 04/12/2008 Findings: The bilateral lungs are clear with no evidence for pleural effusion or pneumothorax. Heart size is within normal limits. Pulmonary vasculature is within normal limits. Aorta is normal. Mediastinum is unremarkable. No acute osseous or soft tissue abnormality identified. IMPRESSION - No acute intrathoracic abnormality identified. Dictated and Signed by: George See MD Electronically signed: 10/01/2017 8:16 PM ED COURSE & MEDICAL DECISION MAKING Pertinent Labs & Imaging studies were reviewed along with EMS notes and longterm record s if applicable. Medication and Allergy lists reviewed in [facility]. Nurses note and old record s were reviewed if available within [facility] ER course 18:44 - Patient care initiated. After introducing myself to the patient, I performed a car eful history and physical examination. This is a 32-year-old male with what seems like rather atypical chest pain. I don't think this is myocardial ischemia but obviously that is in the differential. We will therefore in itiated a full cardiac workup and reevaluate the patient 20:45. Cardiac testing is negative. Patient is feeling better. He notes that he did have a complement of anxiety and a feeling of esophageal spasming during the episode of chest pa in. I splinted him that he could be related to that but there is no evidence of myocardial ischemia and ultimately he is stable for discharge home at this time. Last Set of Vital Signs: Temp: 36.2 C (97.1 F) Pulse: 83 Resp: 16 SpO2: 99 % BP: 130/68 FINAL IMPRESSION 1. Chest pain in adult Disposition: Discharge home Condition: Stable Follow-up Information Chance Dudley MD. Specialty: Family Medicine Why: If symptoms worsen Contact information: [address] [facility] [address] New Prescriptions No medications on file Discontinued Medications No medications on file Discharge References/Attachments Chest Pain, Uncertain Cause (Russian) Portions of this chart may have been created with [employer]ifter voice recognition software. Occasi onal wrong-word or sound-alike substitutions may have occurred due to the inherent west itations of voice recognition software. Please read the chart carefully and recognize, using context, where these substitutions have occurred. [place] MD 10/01/172046 documented in this e ncounter Plan of [...] [place] | | | | | | [address] | | | | | | | | +--------+---------+ + + + documented as of this encounter Procedures + +--------+ + + + | Procedure Name | Priori | Date/Time | Associated Diagnosis | Comments | | | ty | | | | + +--------+ + + + | TROPONIN I | STAT | 10/01/2017 | | Results for this | | | | 7:18 PM | | procedure are in the | | | | PDT | | results section. | + +--------+ + + + | CBC WITH | STAT | 10/01/2017 | | Results for this | | DIFFERENTIAL | | 7:18 PM | | procedure are in the | | | | PDT | | results section. | + +--------+ + + + | COMPREHENSIVE | STAT | 10/01/2017 | | Results for this | | METABOLIC PANEL | | 7:18 PM | | procedure are in the | | | | PDT | | results section. | + +--------+ + + + | XR CHEST AP PORTABLE | STAT | 10/01/2017 | | Results for this | | | | 7:03 PM | | procedure are in the | | | | PDT | | results section. | + +--------+ + + + | ECG 12 LEAD | STAT | 10/01/2017 | | Results for this | | | | 6:50 PM | | procedure are in the | | | | PDT | | results section. | + +--------+ + + + | OXYGEN THERAPY | STAT | 10/01/2017 | | | | | | 6:47 PM | | | | | | PDT | | | + +--------+ + + + documented in this encounter Results Troponin I (10/01/2017 7:18 PM PDT) + + + + + + | Component | Value | Ref Range | Performed | Pathologist | | | | | At | Signature | + + + + + + | Troponin I | <0.01Comment: Reference | <0.06 ng/mL | [facility] | | | | Ranges:0.00-0.06 = | | [facility] | | | | NORMAL>0.06 = | | MEDICAL | | | | SUSPICIOUS FOR | | CENTER - | | | | MYOCARDIAL DAMAGE NOTE: | | LABORATORY | | | | Values greater than 0.50 | | | | | | ng/mL have been shown | | | | | | to be strongly | | | | | | associated with acute | | | | | | myocardial infarction. | | | | | | [employer] | | | | | [...] + | [facility] | [address] | Ashvin Lock [place] | [phone] | | [facility] | | [address] | | | - LABORATORY | | | | + + + + + Comprehensive Metabolic Panel (10/01/2017 7:18 PM PDT) + + + + + [...] + + + + | K | 3.9 | 3.5 - 5.1 | [facility] | | | | | mmol/L | [facility] | | | | | | MEDICAL | | | | | | CENTER - | | | | | | LABORATORY | | + + + + + + | Cl | 105 | 98 - 109 mmol/L | [facility] | | | | | | [facility] | | | | | | MEDICAL | | | | | | CENTER - | | | | | | LABORATORY | | + + + + + + | CO2 | 28 | 24 - 31 mmol/L | [facility] | | | | | | [facility] | | | | | | MEDICAL | | | | | | CENTER - | | | | | | LABORATORY | | + + + + + + | Anion Gap | 7 | 3 - 16 mmol/L | [facility] | | | | | | [facility] | | | | | | MEDICAL | | | | | | CENTER - | | | | | | LABORATORY | | + + + + + + | Glucose | 133 (H) | 70 - 109 mg/dL | [facility] | | | | | | [facility] | | | | | | MEDICAL | | | | | | CENTER - | | | | | | LABORATORY | | + + + + + + | BUN | 10 | 7 - 18 mg/dL | [facility] [...] | | MEDICAL | | | | mL/min/1.79k5Wsaf than | | CENTER - | | [...] + + | Calcium | 9.0 | 8.3 - 10.5 | [facility] | | | | | mg/dL | [facility] | | | | | | MEDICAL | | | | | | CENTER - | | | | | | LABORATORY | | + + + + + + | Albumin | 3.6 | 3.2 - 5.0 g/dL | [facility] | | | | | | [facility] | | | | | | MEDICAL | | | | | | CENTER - | | | | | | LABORATORY | | + + + + + + | Bilirubin | 0.3Comment: This is an | 0.1 - 1.5 mg/dL | [facility] | | | Total | appended report. These | | [facility] | | | | results have been | | MEDICAL | | | | appended to a previously | | CENTER - | | | | preliminary verified | | LABORATORY | | | | report. | | | | + + + + + + | Total | 7.2 | 6.0 - 7.8 g/dL | [facility] | | | Protein | | | [facility] | | | | | | MEDICAL | | | | | | CENTER - | | | | | | LABORATORY | | + + + + + + | AST | 24Comment: This is an | 10 - 42 U/L | [facility] | | | | appended report. These | | [facility] | | | | results have been | | MEDICAL | | | | appended to a previously | | CENTER - | | | | preliminary verified | | LABORATORY | | | | report. | | | | + + + + + + | ALT | 19Comment: This is an | 6 - 45 U/L | [facility] | | | | appended report. These | | [facility] | | | | results have been | | MEDICAL | | | | appended to a previously | | CENTER - | | | | preliminary verified | | LABORATORY | | | | report. | | | | + + + + + + | Alkaline | 52Comment: This is an | 40 - 110 U/L | [facility] | | | Phosphatase | appended report. These | | [facility] | | | | results have been | | MEDICAL | | | | appended to a previously | | CENTER - | | | | preliminary verified | | LABORATORY | | | | report. | | | | + + + + + + | Globulin | 3.6 | 2.1 - 3.8 g/dL | [facility] [...] + + + + | BUN/Creatin | 13.3 | | [facility] | | | ine [...] [address] | [place] | [phone] | | [facility] | | [address] | | | - LABORATORY | | | | + + + + + CBC with Differential (10/01/2017 7:18 PM PDT) + + + + + + | Component | Value | Ref Range | Performed | Pathologist | | | | | At | Signature | + + + + + + | White Blood | 12.6 (H) | 4.0 - 11.0 K/uL | [facility] | | | Cells | | | [facility] | | | | | | MEDICAL | | | | | | CENTER - | | | | | | LABORATORY | | + + + + + + | Red Blood | 4.50 | 4.30 - 5.70 | [facility] | [...] + + + + | Hematocrit | 37.7 (L) | 40.0 - 51.0 % | [...] + + + + | MCH | 26.7 (L) | 28.0 - 35.0 pg | [facility] | | | | | | [facility] | | | | | | MEDICAL | | | | | | CENTER - | | | | | | LABORATORY | | + + + + + + | MCHC | 31.9 (L) | 32.0 - 36.0 | [facility] | | | | | g/dL | [facility] | | | | | | MEDICAL | | | | | | CENTER - | | | | | | LABORATORY | | + + + + + + | RDW-CV | 15.5 (H) | <15.0 % | [facility] | | | | | | [facility] | | | | | | MEDICAL | | | | | | CENTER - | | | | | | LABORATORY | | + + + + + + | Platelet | 297 | 140 - 440 K/uL | [facility] | | | Count | | | [facility] | | | | | | MEDICAL | | | | | | CENTER - | | | | | | LABORATORY | | + + + + + + | MPV | 7.1 | fL | [facility] | | | | | | [facility] | | | | | | MEDICAL | | | | | | CENTER - | | | | | | LABORATORY | | + + + + + + | % | 74.3 | 45.0 - 82.0 % | [facility] | | | Neutrophils | | | [facility] | | | | | | MEDICAL | | | | | | CENTER - | | | | | | LABORATORY | | + + + + + + | % | 17.8 (L) | 20.0 - 45.0 % | [facility] | | | Lymphocytes | | | [facility] | | | | | | MEDICAL | | | | | | CENTER - | | | | | | LABORATORY | | + + + + + + | % Monocytes | 5.0 | 4.0 - 12.0 % | [facility] | | | | | | [facility] | | | | | | MEDICAL | | | | | | CENTER - | | | | | | LABORATORY | | + + + + + + | % | 2.3 | 0.0 - 5.0 % | [facility] [...] + + + + | Absolute | 9.40 (H) | 1.80 - 8.50 | [facility] | | | Neutrophils | | K/uL | [facility] | | | | | | MEDICAL | | | | | | CENTER - | | | | | | LABORATORY | | + + + + + + | Absolute | 2.20 | 0.60 - 3.20 | [facility] | | | Lymphocytes | | K/uL | [facility] | | | | | | MEDICAL | | | | | | CENTER - | | | | | | LABORATORY | | + + + + + + | Absolute | 0.60 | 0.00 - 1.00 | [facility] | | | Monocytes | | K/uL | [facility] | | | | | | MEDICAL | | | | | | CENTER - | | | | | | LABORATORY | | + + + + + + | Absolute | 0.30 | 0.00 - 0.40 | [facility] | | | Eosinophils | | K/uL | [facility] | | | | | | MEDICAL | | | | | | CENTER - | | | | | | LABORATORY | | + + + + + + | Absolute | 0.10 | 0.00 - 0.10 | [facility] | [...] ST. | [address] | [place], [place] | [phone] | | [facility] | | [address] | | | - LABORATORY | | | | + + + + + XR Chest AP Portable (10/01/2017 7:03 PM PDT) + + | Specimen | + + | | + + + + + | Narrative | Performed At | + + + | XR CHEST AP PORTABLE 10/01/2017 6:50 PM HISTORY: CP. | [facility] | | COMPARISON: 04/12/2008 Findings: The bilateral lungs are clear | | | with no evidence for pleural effusion or pneumothorax. Heart size is | | | within normal limits. Pulmonary vasculature is within normal limits. | | | Aorta is normal. Mediastinum is unremarkable. No acute osseous or | | | soft tissue abnormality identified. IMPRESSION - No acute | | | intrathoracic abnormality identified. Dictated and Signed by: George | | | MD Mayi Electronically signed: 10/01/2017 8:16 PM | | + + + + + | Procedure Note | + + | Rudolph, Rad Results In - 10/01/2017 8:19 PM PDT XR CHEST AP PORTABLE 10/01/2017 6:50 PM | | | | HISTORY: CP. | | | | COMPARISON: 04/12/2008 | | | | Findings: | | The bilateral lungs are clear with no evidence for pleural effusion or | | pneumothorax. Heart size is within normal limits. Pulmonary vasculature is | | within normal limits. Aorta is normal. Mediastinum is unremarkable. No acute | | osseous or soft tissue abnormality identified. | | | | IMPRESSION - | | No acute intrathoracic abnormality identified. | | | | Dictated and Signed by: George See MD | | Electronically signed: 10/01/2017 8:16 PM | + + + +---------+ + + | Performing | Address | City/State/Zipcode | Phone Number | | Organization | | | | + +---------+ + + | [facility] | | | | + +---------+ + + ECG 12 lead (10/01/2017 6:50 PM PDT) + + + + + + | Component | Value | Ref Range | Performed | Pathologist | | | | | At | Signature | + + + + + + | VENTRICULAR | 91 | BPM | [facility] | | | RATE EKG | | | | | + + + + + + | ATRIAL RATE | 91 | BPM | [facility] | | + + + + + + | P-R | 152 | ms | [facility] | | | INTERVAL | | | | | + + + + + + | QRS | 88 | ms | [facility] | | | DURATION | | | | | + + + + + + | Q-T | 376 | ms | [facility] | | | INTERVAL | | | | | + + + + + + | Q-T | 462 | ms | [facility] | | | INTERVAL | | | | | | (CORRECTED) | | | | | + + + + + + | P WAVE AXIS | 24 | degrees | [facility] | | + + + + + + | QRS AXIS | 22 | degrees | [facility] | | + + + + + + | T AXIS | 19 | degrees | [facility] | | + + + + + + | INTERPRETAT | Normal sinus | | [facility] | | | ION TEXT | rhythmMinimal voltage | | | | | | criteria for LVH, may be | | | | | | normal | | | | | | variantNonspecific T | | | | | | wave | | | | | | abnormalityProlonged | | | | | | QTAbnormal ECGWhen | | | | | | compared with ECG of | | | | | | 08-OCT-2016 | | | | | | 10:50,Nonspecific T wave | | | | | | abnormality now evident | | | | | | in Lateral leadsVoltage | | | | | | criteria for LVH is now | | | | | | presentConfirmed by | | | | | | NOREEN JACKSON MD ([id number]) | | | | | | on 10/02/2017 5:54:48 PM | | | | + + + [...] | Diagnosis | + + | Chest pain in adult - Primary | + + documented in this encounter
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
--- OUTSIDE RECORDS SUMMARY | ~2020-07-13 | XMS | Encounter Summary ---
Demographics + + + | Address | [address] | | | [place] [address] | + + + | Home Phone | | + + + | Preferred Language | Unknown | + + + | Marital Status | Single | + + + | Jew Affiliation | Unknown | + + + [...] | | | | | [place] [address] | | + + + + + Care Team Providers + +------+ + | Care Senior Infrastructure Engineer Name | Role | Phone | + +------+ + | Chance Dudley MD | PCP | | + +------+ + Reason for Visit + + + | Reason | Comments | + + + | Migraine | every other day for awhile | + + + Encounter Details +--------+---------+ + + + | Date | Type | Department | Care Team | Description | +--------+---------+ + + + | 04/19/ | Office | [facility] | Nadia Claire, | Migraine without | | 2017 | Visit | MEDICINE [place] | RESIDENTIAL DIRECTOR [address] | aura and without | | | | [address] | [place], [place] | status migrainosus, | | | | [place], [place] | [address] | not intractable | | | | [address] | | (Primary Dx); | | | | [phone] | | Recurrent herpes | | | | | | labialis; Excessive | | | | | | thirst; Obesity, | | | | | | morbid, BMI | | | | | | 40.0-49.9 ([facility]); | | | | | | Impaired [...] + + + | Blood Pressure | 138/80 | 04/19/2017 4:12 PM | | | | | PDT | | + + + + + | Pulse | 84 | 04/19/2017 4:12 PM | | | | | PDT | | + + + + + | Temperature | 36.9 C (98.5 F) | 04/19/2017 4:12 PM | | | | | PDT | | + + + + + | Respiratory Rate | 14 | 04/19/2017 4:12 PM | | | | | PDT | | + + + + + | Oxygen Saturation | 96% | 04/19/2017 4:12 PM | | | | | PDT | | + + + + + | Inhaled Oxygen | - | - | | | Concentration | | | | + + + + + | Weight | 167.4 kg (369 lb) | 04/19/2017 4:12 PM | | | | | PDT | | + + + + + | Height | 185.4 cm (6' 1") | 04/19/2017 4:12 PM | | | | | PDT | | + + + + + | Body Mass Index | 48.68 | 04/19/2017 4:12 PM | | | | | PDT | | + + + + + documented in this encounter Patient Instructions Patient Instructions Nadia Claire ARNP - 04/19/2017 4:54 PM PDTKeep a headache diary. Take a 1 week holiday from ibuprofen. After that time you can take 600mg ibuprofen every 4- 6 hrs as needed for pain. Try to take no more than twice per week to avoid rebound headache. Migraine Headache This often severe type of headache is different from other types of headaches in that sympt oms other than pain occur with the headache. Nausea and vomiting, lightheadedness, sensitivi ty to light (photophobia), and other visual disturbances are common migraine symptoms.The pain may last from a few hours to several days. It is not clear why migraines occur but cert ain factors called triggers can raise the risk of having a migraine attack.A migrain e may be triggered by emotional stressor depression, or by hormone changes during the mens trual cycle. Other triggers include control pills, overuse of migraine medicines, alco hol or caffeine, foods with tyramine (such as aged cheese and wine), eyestrain, weather chavis ges, missed meals,or too little or too much sleep. Home care Follow these tips when taking care of yourself at home: Don t drive yourself home if you were given pain medicine for your headache or are hav ing visual symptoms. Instead, have someone else drive you home. Try to sleep when you get ho me. You should feel much better when you wake up. Cold can help ease migraine symptoms. Put an ice pack on your forehead or at the base of your skull. Put heat on the back of your neck to help ease any neck spasm. Drink only clear liquids or eat a light diet until your symptoms get better. This will h elp you avoid nausea and vomiting. How to prevent migraines Pay attention to what seems to trigger your headache. Try to avoid the triggers when you ca n. If you have frequent headaches, consider keeping a headache diary. In it, write down what you were doing, feeling, or eating in the hours before each headache. Show this to your [facility] provider to help find the cause of your headaches. If stress seems to be a trigger for your headaches, figure out what is causing stress in yo ur life. Learn new ways to handle your stress. Ideas include regular exercise, biofeedback, self-hypnosis, yoga, and meditation. Talk with your healthcare provider to find out more inf ormation about managing stress. Many books and digital media are also available on this subj ect. Tyramine is a substance found in many foods. It can trigger a migraine in some people. Thes e foods contain tyramine: Chocolate Yogurt All cheeses, but especially aged cheeses Smoked or pickled fish and meat, including michelle, caviar, bologna, pepperoni, and nahomy mi Liver Avocados Bananas Figs Raisins Red wine Try staying away from these foods for 1 to 2 months to see if you have fewer headaches. How to treat future headaches Take time out at the first sign of a headache, if possible. Find a quiet, dark, comforta ble place to sit or lie down. Let yourself relax or sleep. Put an ice pack on your forehead or on the area of greatest pain. A heating pad and mass age may help if you are having a muscle spasm and tightness in your neck. If you have been prescribed a medicine to stop a migraine headache, use this at the firs t warning sign of the headache for best results. First signs may be an aura or pain. If you need to take medicine often for your migraine, talk with your healthcare provider about other ways to prevent your headaches. Follow-up care Follow up with your healthcare provider, or as advised. Talk with your provider if you have frequent headaches. He or she can figure out a treatment plan. Ask if you can have medicine to take at home the next time you get a bad headache. This may keep you from having to visi t the emergency department in the future. You may need to see a headache specialist (neurolo gist) if you continue to have headaches. When to seek medical advice Call your healthcare provider right awayif any of these occur: Your head pain gets worse, or doesn t get better within 24 hours You can t keep liquids down (repeated vomiting) Pain in your sinuses, ears, or throat Fever of 100.4 F (38 C) or higher, or as directed by your healthcare provider Stiff neck Extreme drowsiness, confusion, or fainting Dizziness, or dizziness with spinning sensation (vertigo) Weakness in an arm or leg, or on one side of your face Difficulty talking or seeing Date Last Reviewed: 06/28/201619998038-2700 [employer]. [address] [place] [address], [place] [id number]. All righ ts reserved. This information is not intended as a substitute for professional medical care. Always follow your healthcare professional's instructions. documented in this encounter Progress Notes Nadia Claire ARNP - 04/19/2017 4:00 PM PDTFormatting of this note might be different fr om the original. Stiven Isidro Davila is a 31 y.o. male here with his mother, Mabel, who helps provide the his tory. Chief Complaint: Migraine (every other day for awhile) Migraine Episode onset: has had been having headaches for several months, especially bad over the month. Episode frequency: every few days. The problem has been gradually worsening. Pain location: top or front of head. The pain does not radiate. Quality: tightening. The pain is at a severity of 8/10. Associated symptoms include dizziness, insomnia, nausea and photopho best. Pertinent negatives include no abdominal pain, coughing, ear pain, eye pain, eye wateri ng, fever, neck pain, scalp tenderness, sinus pressure, sore throat, visual change or vomiti ng. The symptoms are aggravated by bright light, noise and hunger. He has tried darkened eddy m, acetaminophen and NSAIDs (excedrine migraine) for the symptoms. The treatment provided no relief. There is no history of migraines in the family. He does drink caffeinated soda on occasion, but not regularly. His mother states that his high sugar intake (from gatorade, powerade, soda and candy) may be contributing to his symptoms. She notes that he is excessively thirsty. She explains that he saw a pivot end polisher in the past for his impaired fasting glucose. He is not following the re commended diet. He is having a herpes outbreak and would like an acyclovir refill. Medications: Patient Reported Taking No current medications. Past Medical History He has a past medical history of Ankle sprain; Dizziness; Left shoulder pain; Lymphadenopat hy; Obese; Recurrent subluxation of left shoulder; Shoulder strain; Tear of left glenoid lab rum; Venous stasis; and Wears dentures. Past Surgical History He has a past surgical history that includes Elbow surgery (Left, 1988) and Shoulder arthro scopy (Left, 10/08/2016). Family History: His family history includes diabetes in a family member and substance abuse in his father. Social History: Social History Social History Marital status: Single Spouse name: N/A Number of children: 0 Years of education: 12 Occupational History Disabled Social History Main Topics Smoking status: Never Smoker Smokeless tobacco: Never Used Alcohol use Yes Comment: Twice a month 10 beers Drug use: No Sexual activity: Not Currently Partners: Female Other Topics Concern None Social History Narrative Raised by mom in [place], [place]. Father not involved, drug addict. Lives with mom and younger brother. Children: None Schooling: HS graduate, required specialized education plan. A couple courses in college . He is on disability due to learning disability. Employment: Unemployed. Wants to work for "[employer] He completed the [employer] for it. He first needs to get in better shape. Review of Systems Constitutional: Negative for chills, fatigue and fever. See HPI HENT: Negative for ear pain, facial swelling, sinus pressure and sore throat. Eyes: Positive for photophobia. Negative for pain and visual disturbance. Respiratory: Negative for cough, chest tightness, shortness of breath and wheezing. Cardiovascular: Negative for chest pain, palpitations and leg swelling. Gastrointestinal: Positive for nausea. Negative for abdominal pain and vomiting. Endocrine: Positive for polydipsia. Negative for polyuria. Genitourinary: Negative for dysuria. Musculoskeletal: Negative for neck pain and neck stiffness. Neurological: Positive for dizziness. Psychiatric/Behavioral: The patient has insomnia. Objective: Vitals: 04/19/17 1612 BP: 138/80 Pulse: 84 Resp: 14 Temp: 36.9 C (98.5 F) TempSrc: Temporal SpO2: 96% Weight: (!) 167.4 kg (369 lb) Height: 1.854 m (6' 1") Physical Exam Constitutional: He is oriented to person, place, and time. He appears well-developed and we ll-nourished. No distress. Very pleasant, obese HENT: Head: Normocephalic and atraumatic. Right Ear: Tympanic membrane, external ear and ear canal normal. No drainage or tenderness. Tympanic membrane is not injected, not erythematous and not bulging. Left Ear: Tympanic membrane, external ear and ear canal normal. No drainage or tenderness. Tympanic membrane is not injected and not erythematous. Tympanic membrane mobility is normal . Nose: No rhinorrhea or sinus tenderness. No epistaxis. Mouth/Throat: Uvula is midline, oropharynx is clear and moist and mucous membranes are norm al. No oral lesions. No oropharyngeal exudate, posterior oropharyngeal edema, posterior orop haryngeal erythema or tonsillar abscesses. Top teeth missing Eyes: Conjunctivae are normal. Pupils are equal, round, and reactive to light. Right eye ex hibits no discharge. Left eye exhibits no discharge. Patient's glasses scratched and cloudy Neck: Normal range of motion. Neck supple. No JVD present. No thyromegaly present. Cardiovascular: Normal rate, regular rhythm and normal heart sounds. No murmur heard. Pulmonary/Chest: Effort normal and breath sounds normal. No accessory muscle usage or strid or. No tachypnea. No respiratory distress. He has no wheezes. He has no rales. Lymphadenopathy: He has no cervical adenopathy. Neurological: He is alert and oriented to person, place, and time. No cranial nerve deficit or sensory deficit. He exhibits normal muscle tone. Coordination normal. Reflex Scores: Bicep reflexes are 1+ on the right side and 1+ on the left side. Brachioradialis reflexes are 1+ on the right side and 1+ on the left side. Patellar reflexes are 1+ on the right side and 1+ on the left side. Skin: Skin is warm and dry. Rash (herpetiform rash to mouth) noted. He is not diaphoretic. Psychiatric: He has a normal mood and affect. His behavior is normal. Nursing note and vitals reviewed. Assessment: 1. Migraine without aura and without status migrainosus, not intractable 2. Recurrent herpes labialis acyclovir (ZOVIRAX) 400 MG tablet 3. Excessive thirst Hemoglobin A1C 4. Obesity, morbid, BMI 40.0-49.9 (HCC) Hemoglobin A1C 5. Impaired fasting glucose Hemoglobin A1C Plans: 1. Migraine without aura and without status migrainosus, not intractable Discussed common triggers. Advised keeping a headache diary. Discussed headache warning signs and when to seek medical attention. - Maxalt-visually impaired teacher 10 mg Take 1 tablet by mouth as needed for Migraine (Take 1 tab at onset of he adache; may repeat in 2 hours if symptoms persist, max dose 2 tabs in 24 hours.). May repeat in 2 hours if needed Medication risks and benefits were reviewed in detail today with the patient who expresses understanding. Pt will call or return with problems or side effects. 2. Recurrent herpes labialis - acyclovir (ZOVIRAX) 400 MG tablet; Take 1 tablet by mouth 5 times daily for 5 days. [facility] Dispense: 25 tablet; Refill: 2 Medication risks and benefits were reviewed in detail today with the patient who expresses understanding. Pt will call or return with problems or side effects. 3. Excessive thirst 4. Obesity, morbid, BMI 40.0-49.9 (HCC) 5. Impaired fasting glucose - Hemoglobin A1C; Future Follow-up: Return in about 1 month (around 05/20/2017). Care instructions and warning signs were discussed. Medications per orders. Side effects discussed. Labs and investigations per orders. documented in this encounter Plan of Treatment [...] [place] | | | | | | [address] | | | | | | | | +--------+---------+ + + + documented as of this encounter Results Hemoglobin A1C (04/19/2017 5:36 PM PDT) + +---------+ + + + | Component | Value | Ref Range | Performed | Pathologist | | | | | At | Signature | + +---------+ + + + | Hemoglobin | 7.0 (H) | 4.3 - 6.0 % | [facility] | | | A1c | | | [facility] | | | [facility] | [facility] - | | | | | | [facility]ATORY | | + +---------+ + + + | Estimated | 154 | mg/dL | [facility] | | | Average | | | [facility] | | | Glucose | | [...] [address] | [place] | [phone] | | [facility] | | [address] | | | - LABORATORY | | | | + + + + + documented in this encounter Visit Diagnoses + + | Diagnosis | + + | Migraine without aura and without status migrainosus, not intractable - Primary | | Migraine without aura, without mention of intractable migraine without mention of status | | migrainosus | + + | Recurrent herpes labialis Herpes simplex without mention of complication | + + | Excessive thirst Polydipsia | + + | Obesity, morbid, BMI 40.0-49.9 (HCC) | + + | Impaired fasting glucose | + + documented in this encounter
--- OUTSIDE RECORDS SUMMARY | ~2020-07-13 | XMS | Encounter Summary ---
Demographics + + + | Address | [address] | | | [place] [address] | + + + | Home Phone [...] | | | | | [place] [address] | | + + + + + Care Team Providers + +------+ + | Care Two Needle Machine Operator Name | Role | Phone [...] + | 06/06/ | Telephone | [facility] | Nohemy Fisher, | Medication Follow-up | | 2019 | | [facility] [place] | PharmD [address] | | | | | [address] | [facility], | | | | | [place], [place] | [place] [address] | | | | | [address] | [phone] | | | | | [phone] | | | +--------+ + + + [...] Miscellaneous Notes Telephone Encounter - Emory, Aimy, Checker Loader - 06/19/2020 3:30 PM PDTCalled patient to follow up on duloxetine 60 mg daily. Was unable to reach patient, left message to call back at [phone]. elephone Encounter - Nohemy Fisher PharmD - 06/17/2020 4:38 PM PDTCalling to follow up on STIVEN's Cymbalta medi cation. No answer, left message requesting call back at [facility] ). elephone Encounter - Nohemy Fisher PharmD [...] [place] | | | | | | [id number] | | | | | | | | +--------+---------+ + + + documented as of this encounter Visit Diagnoses Not on filedocumented in this encounter
--- OUTSIDE RECORDS SUMMARY | ~2020-07-13 | XMS | Encounter Summary ---
Demographics + + + | Address | [address] | | | [place] [address] | + + + | Home Phone [...] | | | | | [place] [address] | | + + + + + Care Team Providers + +------+ + | Care Inspector Repairer Name | Role | Phone | + [...] + | 04/08/ | Telephone | [facility] | Chance Dudley, | DME | | 2020 | | MEDICINE [place] | [address] | | | | | [address] | [place] | | | | | [place], [place] | [address] | | | | | [address] | | | | | | [phone] | | | +--------+ + + + [...] Jhaveri - 04/08/2020 2:12 PM PDTFaxed to [place] and left message with patient. elephone [facility] - Lakia Daugherty LPN - 04/08/2020 2:01 PM PDTCalled and spoke with Amalia at [facility]. She states that they do not dispense nebulizer supplies. It will have to go to a supplier. Will have the front maker lockstitch fax to [facility],Electronically signed by Lakia Daugherty LPN at 10/2020 [...]
--- OUTSIDE RECORDS SUMMARY | ~2020-07-13 | XMS | Encounter Summary ---
Demographics + + + | Address | [address] | | | [place] [address] | + + + | Home Phone | | + + + | Preferred Language | Unknown | + + + | Marital Status | Single | + + + | Restoration Affiliation | Unknown | + + + [...] | | | | | [place] [address] | | + + + + + Care Team Providers + +------+ + | Care Center Aisle Cashier Name | Role | Phone | + +------+ + | Chance Dudley MD | PCP | | + +------+ + Reason for Visit + +--------+ + | Reason | Onset | Comments | | | Date | | + +--------+ + | Referral | 09/26/ | | | (PreAuthorization) | 2017 | | + +--------+ + Encounter Details +--------+ + + + + | Date | Type | Department | Care Team | Description | +--------+ + + + + | 09/26/ | Telephone | [facility] | Chance Dudley, | Referral | | 2018 | | MEDICINE [place] | [address] | (PreAuthorization) | | | | [address] | [place] | | | | | [place] | [address] | | | | | [address] | | | | | | [phone] | | | +--------+ + + + [...] Telephone Encounter - Chance Dudley MD - 09/26/2018 5:52 PM PDTBummer.. We'll hold of f on a DEXA at this time. Thanks for investigating. Saurabh Dudley MD elephone Encounter - Sujatha Chaparro RN - 09/26/2018 2:23 PM PDTPer Dannia: Medicare ABN required per [facility] 's quick reference screening services chart - codes do not pass compliance. Secondary insura nce follows Medicare guidelines. Dexa has been denied as it diagnoses codes do not pass compliance. Patient can still have d exa, but it will be billed. He will also have to sign an ABN at the time of his appointment to verify he knows he will be billed for procedure. Please advise. ele phone Encounter - Sujatha Chaparro RN - 09/26/2018 1:45 PM PDTReferral team needs order to place authorization request for DEXA. DEXA ordered and referral entered. Electronically s igned by Sujatha Chaparro RN at 09/26/2018 2:03 PM PDTTelephone Encounter - Dm Dudley MD - 09/26/2018 11:56 AM PDTCan you see if we can get a DEXA scan approved for STIV[facility]. Ind ications are: Klinefelter syndrome (Karyotype 48, XXXY), hypogonadism and Vit D Deficiency. Per [facility] - his karyotype abnormality doesn't qualify. But he is at risk for osteoporosis and endocrinology wants him to have DEXA. Thanks! Saurabh Dudley MD documented in this [...] [place] | | | | | | [address] | | | | | | | | +--------+---------+ + + + documented as of this encounter Visit Diagnoses + + | Diagnosis | + + | Klinefelter syndrome - Primary Klinefelter's syndrome | + + | Hypogonadism in male | + + | Vitamin D deficiency Unspecified vitamin D deficiency | + + documented in this encounter"
--- OUTSIDE RECORDS SUMMARY | ~2020-07-13 | XMS | Encounter Summary ---
Demographics + + + | Address | [address] | | | [place] [address] | + + + | Home Phone [...] MANRIQUE | | | | | [place] [address] | | + + + + + Care Team Providers + +------+ + | Care Gravity Prospecting Observer Helper Name | Role | Phone | + +------+ + | Pcp, Prov Inactive | PCP | | + +------+ + Reason for Visit + + + | Reason | Comments | + + + | Cough | RM 3/ right ear plugged x 5 wks | + + + | Generalized Body | | | Aches | | + + + Encounter Details +--------+---------+ + + + | Date | Type | Department | Care Team | Description | +--------+---------+ + + + | 05/18/ | Office | [facility] | Brooke Lauren | Acute suppurative | | 2016 | Visit | CARE [address] | Dewayne Gayle MD | otitis media of | | | | [place] | [address] | right ear without | | | | [address] | [place] | spontaneous rupture | | | | [phone] | [address] | of tympanic | | | | | | membrane, recurrence | | | | | | not specified | | | | | | (Primary Dx); Acute | | | | | | frontal sinusitis, | | | | | | recurrence not | | | | | | specified; | | | | | | Bronchitis | +--------+---------+ + + + Social History [...] + + + | Blood Pressure | 128/80 | 05/18/2016 1:11 PM | | | | | PDT | | + + + + + | Pulse | 76 | 05/18/2016 1:11 PM | | | | | PDT | | + + + + + | Temperature | 36.4 C (97.6 F) | 05/18/2016 1:11 PM | | | | | PDT | | + + + + + | Respiratory Rate | 17 | 05/18/2016 1:11 PM | | | | | PDT | | + + + + + | Oxygen Saturation | 98% | 05/18/2016 1:11 PM | | | | | PDT | | + + + + + | Inhaled Oxygen | - | - | | | Concentration | | | | + + + + + | Weight | 158.1 kg (348 lb 8 | 05/18/2016 1:11 PM | | | | oz) | PDT | | + + + + + | Height | 185.4 cm (6' 1") | 05/18/2016 1:11 PM | | | | | PDT | | + + + + + | Body Mass Index | 45.98 | 05/18/2016 1:11 PM | | | | | PDT | | + + + + + documented in this encounter Patient Instructions Patient Instructions Brooke Lauren Jr., MD - 05/18/2016 1:25 PM PDT Follow-up with your doctor or the clinic if not improving in 5 days. Take medication as directed Increase fluid intake Recheck sooner, in the clinic, with your doctor or in the ER, if your symptoms worsen or ne w problems develop 1: 25 PM PDT documented in this encounter Progress Notes Brooke Lauren Jr., MD - 05/18/2016 1:20 PM PDTStiven Davila presents with a three-week history of nasal congestion with some yellow rhinorrhea, a plugged up right ear with decreased hearing and a productive cough. He's had no GI symptoms. Exam: No distress, non-toxic in appearance BP 128/80 mmHg | Pulse 76 | Temp(Src) 36.4 C (97.6 F) (Temporal) | Resp 17 | Ht 1.854 m (6' 1") | Wt 158.079 kg (348 lb 8 oz) | BMI 45.99 kg/m2 | SpO2 98% Nose: Congested with tenderness over the frontal sinuses Ears: Right TM is inflamed and dull with a questionable fluid level behind the drum, the c anal is clear Throat: no erythema, no exudate, postnasal drainage Neck: Supple, no stridor, no adenopathy Chest: No rales, no rhonchi, no wheezes, good breath sounds bilaterally, no respiratory di stress Heart: Regular rhythm, no murmur, no gallop, no rub Diagnosis: Right otitis media, frontal sinusitis, bronchitis Plan: Septra, prednisone Follow-up with your doctor or the clinic if not improving in 5 days. Take medication as directed Increase fluid intake Recheck sooner, in the clinic, with your doctor or in the ER, if your symptoms worsen or ne w problems develop document ed in this encounter Plan of Treatment +--------+---------+ + + + | Date | Type | Specialty | Care Team | Description | +--------+---------+ + + + | 07/22/ | Office | Family Medicine | Chance Dudley, | | | 2019 | Visit | | MD Manolo BULLARD | | | | | | [place] | | | | | | [address] | | | | | | | | +--------+---------+ + + + documented as of this encounter Visit Diagnoses + + | Diagnosis | + + | Acute suppurative otitis media of right ear without spontaneous rupture of tympanic | | membrane, recurrence not specified - Primary | + + | Acute frontal sinusitis, recurrence not specified | + + | Bronchitis Bronchitis, not specified as acute or chronic | + + documented in this encounter
--- OUTSIDE RECORDS SUMMARY | ~2020-07-13 | XMS | Encounter Summary ---
Demographics + + + | Address | [address] | | | [place] [address] | + + + | Home Phone [...] | | | | | [place] [address] | | + + + + + Care Team Providers + +------+ + | Care Bdr Name | Role | Phone | + +------+ + | Chance Dudley MD | PCP | | + +------+ + Encounter Details +--------+ + + + + | Date | Type | Department | Care Team | Description | +--------+ + + + + | 12/03/ | Anesthesia | [facility] | Rich Diaz MD | | | 2020 | Event | [facility] | [address] | | | | | [address] | [place], [place] | | | | | [place], [place] | [address] | | | | | [address] | [phone] | | | | | [phone] | | | +--------+ + + + + Anesthesia Record + + + + + | Procedure Name | Responsible | Anesthesia Start | Anesthesia Stop Time | | | Anesthesiologist | Time | | + + + + + | ABHISHEK McnultyN/Chanell Torres) | Rich Diaz MD | 12/03/19 1134 | 12/03/19 1200 | + + + + + +----+---+ + + | Da | T | Event | Comment | | te | i | | | | | m | | | | | e | | | +----+---+ + + | 01 | 1 | An Checkout | Pre-use anesthesia machine/equipment checkout. | | /0 | 1 | | | | 6/ | 1 | | | | 20 | 2 | | | | 20 | | | | +----+---+ + + | | 1 | An Start | | | | 1 | Data | | | | 1 | | | | | 2 | | | +----+---+ + + | | 1 | An Start | Reassessment prior to anesthesia induction/procedure. | | | 1 | | | | | 3 | | | | | 4 | | | +----+---+ + + | | 1 | Pre-Procedu | | | | 1 | ral Timeout | | | | 3 | Completed | | | | 8 | | | +----+---+ + + | | 1 | First | | | | 1 | Inc/Proc St | | | | 4 | | | | | 2 | | | +----+---+ + + | | 1 | | | | | 1 | | | | | 4 | | | | | 7 | | | +----+---+ + + | | 1 | an stop | | | | 1 | data | | | | 5 | | | | | 8 | | | +----+---+ + + | | 1 | An Stop | Patient handed off to recovery nurse. | | | 0 | | | | | 7 | | | +----+---+ + + +------+ | Meds | +------+ + + + | Name | Total | + + + | propofol | 150 mg | + + + | propofol | 184.18 mg | + + + | lidocaine 2% | 50 mg | + + + | lactated ringers (LR) infusion | 350 mL | + + + + + | No agents on file. | + + + + | No blood administrations on file. | + + +--------+ + + + | Type | Details | Placement | Removal | +--------+ + + + | Wound | 05/27/182119; Lewis; estrella; suhas | 05/27/182119 by | 12/03/19 1339 by | | | shot; 12/03/19; 133 | Mabel Monzon RN | Nichole Garduno RN | +--------+ + + + | Periph | 12/02/19; 1118; yes; Right; | 12/02/19 1118 by | 12/04/19 1000 by | | eral | Antecubital; [id number] | Mabel Monzon RN | Derek Cardona RN | | IV | catheter system; 18 gauge; no | | | | | longer indicated; 12/04/19; 1000 | | | +--------+ + + + [...] encounter OR Notes Anesthesia Postprocedure Evaluation - Rich Diaz MD - 12/03/2019 2:56 PM Autumn myles of this note might be different from the original. ANESTHESIA POSTANESTHESIA EVALUATION Stiven Isidro Davila 34 y.o. male 1985 [id number] Procedure(s) EGD (N/A Mouth) Cooperates? Yes Mental Status Performs simple tasks. Respiratory Satisfactory - Airway patent (self maintained). Cardiovascular Satisfactory - Blood pressure and heart rate acceptable Temperature Satisfactory Pain Satisfactory N/V Control Satisfactory Hydration Satisfactory - No signs of dehydration Adverse Events ADVERSE EVENTS: No adverse events Vitals Value Taken Time Temp 36.3 C (97.3 F) 12/03/2019 12:06 PM Pulse 54 12/03/2019 12:24 PM Resp 14 12/03/2019 12:06 PM BP 129/72 12/03/2019 12:15 PM Arterial Line BP Arterial Line BP 2 SpO2 99 % 12/03/2019 12:24 PM Vitals shown include unvalidated device data. Electronically signed by Rich Diaz MD 12/03/2019 2:56 PM [facility] signed by Rich Diaz MD at 12/03 2:56 PM PSTAnesthesia Preprocedure Evaluation - Rich Diaz MD - 12/03/2019 10:41 AM PST ANESTHESIA PREANESTHESIA EVALUATION Stiven Davila 34 y.o. male 1985 [id number] Procedure(s): EGD (N/A Mouth) Medical,anesthesia, drug, allergy histories reviewed, NPO status verified. (-) perioperative beta-seda/statin not given/taken, reason: last dose within 24 hours. Review of Systems / Med History Anesthesia History (+) previous surgery or anesthesia. Gastrointestinal/Hepatic (+) bowel prep. Endocrine (+) obesity: BMI (30-39) (+) Diabetes: type 2. Neuromuscular (+) chronic pain. 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 Physical Exam Airway MP II, TM >3 FB, Mouth opening >2 FB. Neck: full ROM, extends >30 degrees. Jaw protrus ion normal. Dental (+) age appropriate dentition. CV Rhythm regular. Rate Normal. Neuro grossly normal. Anesthesia Plan ASA: 2 Type: General, TIVA. Induction: Intravenous. Potential problems: None anticipated. Monitors: Standard ASA monitors. Postop Pain Management: Consent statement: Anesthetic plan, alternatives, risks and benefits discussed with patient. Consenting person understands and agrees to proceed. Electronically Signed by: Rich Diaz MD ESig date/time: 12/03/2019 10:41 AM documented in this enc ounter Miscellaneous Notes Anesthesia Post-op Handoff - Rich Diaz MD - 12/03/2019 12:06 PM PST ANESTHESIA HANDOFF NOTE Stiven Davila 34 y.o. male 1985 [id number] EGD (N/A Mouth) HANDOFF NOTE Handoff Protocol Used: post-procedure handoff checklist completed The following were completed during the transfer of care: 1. Identification of patient 2. Identification of responsible practitioner (primary service) 3. Discussion of pertinent medical history 4. Discussion of the surgical/procedure course (procedure, reason for surgery, procedure pe rformed) 5. Intraoperative anesthetic management and issues/concerns 6. Expectations/plans for the early post-procedure period 7. Opportunity for questions and acknowledgement of understanding of report from receiving team The significant anesthesia concerns and VS in [facility] were reviewed with the receiving team. Rich Diaz MD 12/03/2019 12:06 PM [facility] signed by Rich Diaz MD at 12/03 12:07 PM PSTAnesthesia Post-op Handoff - Rich Diaz MD - 12/03/2019 12:05 PM PSTF ormatting of this note might be different from the original. ANESTHESIA HANDOFF NOTE Stiven Davila 34 y.o. male 1985 [id number] EGD (N/A Mouth) HANDOFF NOTE Handoff Protocol Used: post-procedure handoff checklist completed The following were completed during the transfer of care: 1. Identification of patient 2. Identification of responsible practitioner (primary service) 3. Discussion of pertinent medical history 4. Discussion of the surgical/procedure course (procedure, reason for surgery, procedure pe rformed) 5. Intraoperative anesthetic management and issues/concerns 6. Expectations/plans for the early post-procedure period 7. Opportunity for questions and acknowledgement of understanding of report from receiving team Patient Location: Phase II Condition: sedated Airway/O2: other (see comments) Multimodal analgesia: multimodal analgesia not used between 6 hours prior to anesthesia sta rt to PACU discharge Analgesics allergies?: Patient does not have documented allergies to multiple classes of an algesics Comments: Supplemental Oxygen administered as necessary to maintain oxygen saturations abov e 92%. If the surgery does not typically require Narcotics then Multi-Modal Analgesia is not indic ated. The significant anesthesia concerns and VS in [facility] were reviewed with the receiving team. Rich Diaz MD 12/03/2019 12:05 PM [facility] signed by Rich Daiz MD at 12/03 12:05 PM PSTdocumented in this encounter Plan of [...] | | | + +--------+ +-------+------+------+ | lidocaine (PF) 2% injection | Given | 12/03/19 | 50 mg | | | | Intravenous, PRN, Starting Mon | | 20 11:42 | | | | | 12/03/19 at 1138, Anesthesia | | AM PST | | | | | Intra-op | | | | | | + +--------+ +-------+------+------+ +---+---+ | | | +---+---+ + +-------+ +-------+---+---+ | propofol (DIPRIVAN) injection | Given | 12/03/19 | 20 mg | | | | Intravenous, PRN, Starting Mon | | 11:47 | | | | | 12/03/19 at 1142, Anesthesia | | AM PST | | | | | Intra-op | | | | | | + +-------+ +-------+---+---+ +-------+ +-------+---+---+ | Given | 12/03/19 | 30 mg | | | | | 20 11:44 | | | | | | AM PST | | | | +-------+ +-------+---+---+ | Given | 12/03/19 | 50 mg | | | | | 20 11:43 | | | | | | AM PST | | | | +-------+ +-------+---+---+ +---+---+ | | | +---+---+ + +---------+ + +--------+---+ | propofol (DIPRIVAN) injection | New Bag | 12/03/19 | 140 | 100.5 | | | Intravenous, CONTINUOUS PRN, | | 20 11:44 | mcg/kg/m | mL/hr | | | Starting 12/03/19 at 1144, | | AM PST | in | | | | Anesthesia Intra-op | | | | | | + +---------+ + +--------+---+ +---+---+ | | | +---+---+ documented in this encounter"
--- OUTSIDE RECORDS SUMMARY | ~2020-07-13 | XMS | Encounter Summary ---
Demographics + + + | Address | [address] | | | [place] [address] | + + + | Home Phone [...] Author + + + | Author | [facility] | | | and [place] | + + + | Organization | [facility] | | | [...] | | | | | [place] [address] | | + + + + + Care Team Providers + +------+ + | Care Shoulder Boner Name | Role | Phone | + [...] + | 10/26/ | Office | [facility] | Kenney Gomez, | Right leg | | 2012 | Visit | CARE [address] | MD [address] | paresthesias | | | | [place] | [place] | (Primary Dx); Low | | | | [address] | [address] | back strain | | | | [phone] | | | +--------+---------+ + + + [...] om the original. Subjective: Chief Complaint: Pain Stiven is a 28 y.o. male who comes [...] [place] | | | | | | [address] | | | | | | | | +--------+---------+ + + + documented as of this encounter Results VAS Lower Extremity Venous Right (10/26/2013 1:01 PM PST) + + | Specimen | + + | | + + + + + | Narrative | Performed At | + + + | [facility] | [place] | | Department [address] [facility] [place] | | [ rep [address]] [ rep [facility] | | st zip] Signed | - IMAGING | | | | | Patient Name: STIVEN DAVLIA Physician: | | | 01 : 1985 Age: 28 Sex: M Unit #: [id number] | | | Exam Date: 10/26/13 [place] [facility] [place] | | Report #: [id number] Page: | | | %(RAD)RES..mtdd.print.filter("pg") of %(RAD) | | | RES..mtdd.print.filter("tpg") | | | | | | Accession Number: [id number] | | | RIGHT LOWER EXTREMITY DUPLEX [...] Dwayne Magana | | | MD Josr10/27/13 4126 <Electronically signed by Dwayne Ovalles MD> | | | Dwayne Ovalles MD 10/26/13 1309 Workforce Management Manager: | | | Carole Goodrich10/26/13 8802 Kenney Gomez MD | | + + + + + + + + | Performing | Address | City/State/Zipcode | Phone Number | | Organization | | | | + + + + + | [facility] | [address] | [place] | [phone] | | [facility] | | [address] | | | - IMAGING | | | | + + + + + documented in this encounter Visit Diagnoses + + | Diagnosis | + + | Right leg paresthesias - Primary Disturbance of skin sensation | + + | Low back strain Sprain of lumbar region | + + documented in this encounter
--- OUTSIDE RECORDS SUMMARY | ~2020-07-13 | XMS | Encounter Summary ---
Demographics + + + | Address | [address] | | | [place] [address] | + + + | Home Phone [...] MANRIQUE | | | | | [place] [address] | | + + + + + Care Team Providers + +------+ + | Care Chief Airport Guide Name | Role | Phone | + [...] + + | 01/07/ | Emergency | [facility] | Addie, | Shortness of breath | | 2019 | | [facility] | Rich Lua MD [address] | (Primary Dx); | | | | CENTER [address] | [address] [place] | Moderate persistent | | | | [place] | [place] [address] | reactive airway | | | | [address] | [phone] | disease with acute | | | | [phone] | | exacerbation | +--------+ + + [...] | 0 | | | | (MYCOSTATIN) 750372 | topically 2 times | | | [...] | | | | | | | ([facility]) | | | | | | + + + +---------+ + + documented as of this encounter ED Notes Rich Real MD - 01/07/2020 6:22 PM PSTFormatting of this note might be differe nt from the original. [facility] Stiven Davila EMERGENCY DEPARTMENT ENCOUNTER NOTE [address] [place] [address] PCP:Cash Dudley MD ROOM: ED06 DIAGNOSIS: 1. [...] Upper gastrointestinal endoscopy (N/A, 12/03/2019). 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 Chewables. For post-bariatric surgery nystatin (MYCOSTATIN) [id number] UNIT/GM powder Apply 1 Application topically 2 [...] were reviewed along with EMS notes and intermediate record s if applicable. (See chart for [...] information: [address] [place] [address] Discharge Medication List as of 01/07/2020 6:35 [...] Portions of this chart were created with mobifriends voice recognition software. Inadvertent so und alike [...] | | | | | [place] | | | | | | [address] | | | | | | | [...] L?MRN: | | | | | | [id number] | | | [id number] | | | riteri | | | [...] | | | otify/ | | | [id number] | | | [id number] | | | [id number] | | | -[id number]- | | | [id number] | | | [id number] | | | | | | PLEASE [...]
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
--- OUTSIDE RECORDS SUMMARY | ~2020-07-13 | XMS | Encounter Summary ---
Demographics + + + | Address | [address] | | | [place] [address] | + + + | Home Phone | | + + + | Preferred Language | Unknown | + + + | Marital Status | Single | + + + | Mandaen Affiliation | Unknown | + + + [...] | | | | | [place] [address] | | + + + + + Care Team Providers + +------+ + | Care Brim Welt Sewing Machine Operator Name | Role | Phone | + +------+ + | Chance Dudley MD | PCP | | + +------+ + Reason for Visit + + + | Reason | Comments | + + + | Alcohol Intoxication | | + + + Encounter Details +--------+ + + + + | Date | Type | Department | Care Team | Description | +--------+ + + + + | 05/18/ | Emergency | [facility] | Malcom Arriola, | Alcoholic | | 2019 | | [facility] | MD [address] | intoxication without | | | | CENTER [address] | [place], [place] | complication (HCC) | | | | [place], [place] | [address] | (Primary Dx); | | | | [address] | | Chronic chest wall | | | | [phone] | | pain | +--------+ + + + + Social [...] + + + | Blood Pressure | 131/73 | 05/18/2020 1:37 AM | | | | | PDT | | + + + + + | Pulse | 72 | 05/18/2020 1:37 AM | | | | | PDT | | + + + + + | Temperature | 36.1 C (97 F) | 05/18/2020 12:35 AM | | | | | PDT | | + + + + + | Respiratory Rate | 15 | 05/18/2020 1:37 AM | | | | | PDT | | + + + + + | Oxygen Saturation | 98% | 05/18/2020 1:37 AM | | | | | PDT | | + + + + + | Inhaled Oxygen | - | - | | | Concentration | | | | + + + + + | Weight | 122.5 kg (270 lb) | 05/18/2020 12:35 AM | | | | | PDT | | + + + + + | Height | 185.4 cm (6' 1") | 05/18/2020 12:35 AM | | | | | PDT | | + + + + + | Body Mass Index | 35.62 | 05/18/2020 12:35 AM | | | [...] documented as of this encounter Discharge Instructions AttachmentsThe following attachments cannot be sent through Care Everywhere.Chest Pain, Non cardiac (Moroccan)Alcohol Intoxication (Moroccan)documented in this encounter Medications at Time of [...] | 0 | | | | (MYCOSTATIN) [id number] | topically 2 times | | | [...] encounter ED Notes Malcom Arriola MD - 05/18/2020 12:50 AM PDTFormatting of this note might be different fro m the original. eMERGENCY dEPARTMENT eNCOUnter CHIEF COMPLAINT Chief Complaint Patient presents with Alcohol Intoxication HPI Stiven Isidro Davila is a 35 y.o. male who presents intoxicated by alcohol. He was picked up by paramedics after being found heavily intoxicated outside the [place]. He was refusin g to get into the car with his mother. He states that he was drinking heavily because of chr onic pain on the left side of his chest. This has been investigated multiple times, he has h ad 6 CTs in the last 6 months. He also states that he has had nausea and vomiting tonight an d thinks that there was some red in his vomit. 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 Chewables. For post-bariatric surgery nystatin (MYCOSTATIN) 963090 UNIT/GM powder Apply 1 Application topically 2 [...] Merged History Encounter Raised by mom in [place], [place]. Father not involved, drug addict. Lives with mom and younger brother. Children: None Schooling: HS graduate, required specialized education plan. A couple courses in college. 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 Employment: Unemployed. Wants to work for "[employer]." He completed the tra inMedypal for it. He first needs to get in better shape. REVIEW OF SYSTEMS A 12 system review of systems is otherwise negative except as noted in the HPI above. PHYSICAL EXAM VITAL SIGNS: (first vital signs):Temp: 36.1 C (97 F) Pulse: 68 Resp: 16 SpO2: 99 % BP: 123/82 Constitutional: Well developed, Well nourished, intoxicated HENT: Normocephalic, Atraumatic, Bilateral external ears normal, Oral mucosa moist, petroleum analyst ior pharynx no exudates, Nose normal. Neck-supple, nontender, no meningismus, No stridor. Eyes: PERRL, EOMI, Conjunctiva normal, No discharge. Respiratory: Breath sounds equal bilaterally, no adventitious sounds, left anterior chest wall tenderness to palpation Cardiovascular: Normal rate, normal S1, S2, no [...] for the following components: Result Value RBC 4.24 (*) Hemoglobin 12.4 (*) Hematocrit 38.8 (*) % Eosinophils 5.7 (*) Absolute Eosinophils 0.44 (*) All other components within normal limits COMPREHENSIVE METABOLIC PANEL - Abnormal; Notable for the following components: Glucose 123 (*) Alkaline Phosphatase 43 (*) All other components within normal limits ALCOHOL - Abnormal; Notable for the following components: ALCOHOL, SERUM/PLASMA 126 (*) All other components within normal limits RADIOLOGY CT Results: No results found. EKG Interpretation Interpreted by me Rhythm: normal sinus Rate: normal [place]: normal Ectopy: none Conduction: normal ST Segments: no acute change T Waves: no acute change Q Waves: none Clinical Impression: no acute changes and normal EKG ED COURSE & MEDICAL DECISION MAKING Pertinent Labs & Imaging studies reviewed. (See chart for details) Patient presented with above symptoms and exam findings. Blood alcohol was 126. CBC and met abolic panel were unremarkable. Patient was given some fluids and Zofran and Pepcid. He was otherwise stable and discharged. He should follow up with primary care. Last Set of Vital Signs: Temp: 36.1 C (97 F) Pulse: 72 Resp: 15 SpO2: 98 % BP: 131/73 FINAL IMPRESSION 1. Alcoholic intoxication without complication (HCC) 2. Chronic chest wall pain PLAN Follow-up Information Schedule an appointment as soon as possible for a visit with Chance Dudley MD. Specialty: Family Medicine Why: As needed Contact information: [address] [place] [address] Discharge Medication List as of 05/18/2020 1:56 AM Malcom Arriola MD 05/18/20 0219 Sheng Linton RN - 05/18/2020 12:37 AM PDTPt has had pleuritic chest pain that gets worse when he moves, takes a deep breath or palpation. Pt denies any SOB. Pt is intoxicated, states he was trying to drink the pain away. d ocumented in this encounter Plan of Treatment +--------+---------+ + + + | Date | Type | Specialty | Care Team | Description | +--------+---------+ + + + | 07/22/ Office | Family Medicine | Chance Dudley, | | | 2019 | Visit | | MD [address] | | | | | | [place] | | | | | | [address] | | | | | | | [...] + + documented in this encounter Results Ethanol (05/18/2020 1:05 AM PDT) + +---------+ + + + | Component | Value | Ref Range | Performed | Pathologist | | | | | At | Signature | + +---------+ + + + | ALCOHOL, | 126 (H) | <10 mg/dL | [facility] | [...] [address] | [place] | [phone] | | [facility] | | [address] | | | - LABORATORY | | | | + + + + + Comprehensive Metabolic Panel (05/18/2020 1:05 AM PDT) + + + + + [...] 14 | 9 - 23 mg/dL | [facility] | | | | | | [facility] | | | | | MEDICAL | | | | | | CENTER - | | | | | | LABORATORY | | + + + + + + | Creatinine | 0.70 | 0.70 - 1.30 | [facility] | | | | | mg/dL | [facility] | | | | | MEDICAL | | | | | | CENTER - | | | | | | LABORATORY | | + + + + + + | eGFR, | >60Comment: GLOMERULAR | >=60 | [facility] | | | non- | FILTRATION | mL/min/1.73m2 | [facility] | | | [place] | RATE,ESTIMATED | | MEDICAL | | | | mL/min/1.66i2Rfrw than | | CENTER - | | [...] | 9.0 | 8.7 - 10.4 | [facility] | [...] + | [facility] | [address] | [place], [place] | [phone] | | [facility] | | [address] | | | - LABORATORY | | | | + + + + + CBC with Differential (05/18/2020 1:05 AM PDT) + + + + + [...] [address] | [place] | [phone] | | [facility] | | [address] | | | - LABORATORY | | [...] MD | | | | | | ([id number]) on 05/19/2020 | | | | | [...] + | Diagnosis | + + | Alcoholic intoxication without complication (HCC) - Primary | + + | Chronic chest wall pain Painful respiration | + + documented in this encounter Administered Medications + +--------+---------+------+------+------+ | Medication Order | MAR | Action | Dose | Rate | Site | | | Action | Date | | | | + +--------+---------+------+------+------+ + +---+ | ondansetron (ZOFRAN) injection | | | 4 mg 4 mg, Intravenous, EVERY 1 | | | HOUR PRN, Nausea, Vomiting, | | | Starting 05/18/20 at 0050, For | | | 2 doses | | + +---+ | | | + +---+ + +---------+ +--------+-------+---+ | sodium chloride 0.9% (NS) bolus | New Bag | 05/18/20 | 1,000 | 2000 | | | 1,000 mL 1,000 mL, Intravenous, | | 20 1:05 | mLs | mL/hr | | | Administer over 30 Minutes, | | AM PDT | | | | | ONCE, 05/18/20 at 0055, For 1 | | | | | | | dose | | | | | | + +---------+ +--------+-------+---+ +---+---+ | | | +---+---+ documented in this encounter
--- OUTSIDE RECORDS SUMMARY | ~2020-07-13 | XMS | Encounter Summary ---
Demographics + + + | Address | [address] | | | [place] [address] | + + + | Home Phone | | + + + | Preferred Language | Unknown | + + + | Marital Status | Single | + + + | Mormonism Affiliation | Unknown | + + + [...] | | | | | [place] [address] | | + + + + + Care Team Providers + +------+ + | Care Optoelectronic Technician Name | Role | Phone | [...] | 10/26/ | Telephone | [facility] | Chance Dudley, | Eye Exam | | 2018 | | [facility] | [address] | | | | | [address] | [place] | | | | | [place] | [address] | | | | | [address] | | | | | | [phone] | | | +--------+ + + + [...] with eye exam. He had done at [facility] in [place]. Thanks! Saurabh Dudley MD documented [...] [place] | | | | | | [address] | | | | | | | | +--------+---------+ + + + documented as of this encounter Visit Diagnoses Not on filedocumented in this encounter"
--- OUTSIDE RECORDS SUMMARY | ~2020-07-13 | XMS | Encounter Summary ---
Demographics + + + | Address | [address] | | | [place] [address] | + + + | Home Phone [...] + + + | Author | [facility] | | | and [place] | + + + | Organization | [facility] | | | [...] [place] | | | | | [place] [address] | | + + + + + Care Team Providers + +------+ + | Care Bend Sorter Name | Role | Phone | [...] | | | | | [address] | [place], [place] | | | | | [place], [place] | [address] | | | | | [address] | [phone] | | | | | [phone] | | | +--------+ + + + + Anesthesia Record + + + + + | Procedure Name | Responsible | Anesthesia Start | Anesthesia Stop Time | | | Anesthesiologist | Time | | + + + + + | ABHISHEK McnultyN/Chanell Torres) | Rich Diaz MD | 12/03/19 1134 | 12/03/19 1202 | + + + + + +----+---+ [...] 1000 by | | eral | Antecubital; [id number] | Mabel Monzon RN | Derek Cardona [...] Stiven Isidro Davila 34 y.o. male 1985 [id number] Procedure(s) EGD (N/A Mouth) Cooperates? Yes Mental [...] by Rich Diaz MD 12/03/2019 2:56 PM [facility]ron[facility] signed by Rich Diaz MD at 12/03 2:56 PM PSTAnesthesia Preprocedure Evaluation - Rich Diaz MD - 12/03/2019 10:41 AM PST ANESTHESIA PREANESTHESIA EVALUATION tSiven Davila 34 y.o. male 1985 [id number] Procedure(s): EGD (N/A Mouth) Medical,anesthesia, drug, allergy [...] NOTE Stiven Davila 34 y.o. male 1985 [id number] EGD (N/A Mouth) HANDOFF NOTE Handoff Protocol [...] The significant anesthesia concerns and VS in [facility] were reviewed with the receiving team. Rich Diaz MD 12/03/2019 12:06 PM [facility]AL[facility] signed by Rich Diaz MD at 12/03 12:07 PM PSTAnesthesia Post-op Handoff - Rich Diaz MD - 12/03/2019 12:05 PM PSTF ormatting of this note might be different from the original. ANESTHESIA HANDOFF NOTE Stiven Davila 34 y.o. male 1985 [id number] EGD (N/A Mouth) HANDOFF NOTE Handoff Protocol [...] The significant anesthesia concerns and VS in [facility] were reviewed with the receiving team. Rich Diaz MD 12/03/2019 12:05 PM [facility] HEALTHE[facility]ronically signed by Rich Diaz MD at 12/03 12:05 PM PSTdocumented in [...]
--- OUTSIDE RECORDS SUMMARY | ~2020-07-13 | XMS | Encounter Summary ---
Demographics + + + | Address | [address] | | | [place] [address] | + + + | Home Phone [...] Author + + + | Author | [facility] | | | and [place] | + + + | Organization | [facility] | | [...] [place] | | | | | [place] [address] | | + + + + + Care Team Providers + +------+ + | Care Maternity Nurse Name | Role | Phone | + [...] + + | 04/08/ | Office | [facility] | Chance Dudley, | SOB (shortness of | | 2020 | Visit | [facility] | [address] | breath) (Primary | | | | [address] | [place] | Dx); Mild | | | | [place], [place] | [address] | intermittent asthma | | | | [address] | | without | | | | [phone] | | complication; Closed | | | [...] PM PDTIf you do not hear from [facility] by to schedule your lung function tests [...] ly. Chewables. For post-bariatric surgery nystatin (MYCOSTATIN) 623464 UNIT/GM powder Apply 1 Application topically 2 [...] [place] | | | | | | [address] | | | | | | | [...]
--- OUTSIDE RECORDS SUMMARY | ~2020-07-13 | XMS | Encounter Summary ---
Demographics + + + | Address | [address] | | | [place] [address] | + + + | Home Phone [...] [place] | | | | | [place] [address] | | + + + + + Care Team Providers + +------+ + | Care Counting Machine Operator Name | Role | Phone | + +------+ + | Chance Dudley MD | PCP | | + +------+ + Encounter Details +--------+ + + + + | Date | Type | Department | Care Team | Description | +--------+ + + + + | 08/09/ | Hospital | [facility] | Chance Dudley, | Hypogonadism in male | | 2016 | Encounter | [facility] | [address] | | | | | [address] [place] | [place] | | | | | [place] | [address] | | | | | [address] | | | | | | [phone] | | | +--------+ + + + [...] [place] | | | | | | [address] | | | | | | | [...] 7 - 18 mg/dL | [facility] | | | | | | [facility] | | | | | | MEDICAL | | | | | | CENTER - | | | | | | LABORATORY | | + + + + + + | Creatinine | 0.76 | 0.60 - 1.30 | [facility] | | | | | mg/dL | [facility] | | | | | | MEDICAL | | | | | | CENTER - | | | | | | LABORATORY | | + + + + + + | eGFR, | >60Comment: GLOMERULAR | >=60 | [facility] | | | non- | FILTRATION | mL/min/1.73m2 | [facility] | | | [place] | RATE,ESTIMATED | | MEDICAL | | | | mL/min/1.96v6Uulc than | | CENTER - | | [...] [address] | [place] | [phone] | | [facility] | | [address] | | | - LABORATORY | | [...] [address] | [place] | [phone] | | [facility] | | [address] | | | - LABORATORY | | | | + + + + + documented in this encounter Visit Diagnoses + + | Diagnosis | + + | Hypogonadism in male | + + documented in this encounter"
--- OUTSIDE RECORDS SUMMARY | ~2020-07-13 | XMS | Encounter Summary ---
Demographics + + + | Address | [address] | | | [place] [address] | + + + | Home Phone [...] | | | | | [place] [address] | | + + + + + Care Team Providers + +------+ + | Care Telemarketer Supervisor Name | Role | Phone | [...] | 01/15/ | Telephone | [facility] [place] [facility] | Chance Dudley, | ED Follow-up | | 2020 | | MEDICINE [address] | [address] | | | | | [address] [place], | [place] | | | | | [place] [address] | [id number] | | | | | [phone] | | | +--------+ + + + [...] Cabrales RN - 01/15/2020 4:50 PM PST [facility] ED follow up call Admission Date: 01/07/20 [...] [place] | | | | | | [address] | | | | | | | | +--------+---------+ + + + documented as of this encounter Visit Diagnoses Not on filedocumented in this encounter"
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
--- OUTSIDE RECORDS SUMMARY | ~2020-07-13 | XMS | Encounter Summary ---
Demographics + + + | Address | [address] | | | [place] [address] | + + + | Home Phone [...] + + | Author | [facility] | | | and [place] | + + + | Organization | [facility] | | [...] | | | | | [place] [address] | | + + + + + Care Team Providers + +------+ + | Care Purification Director Name | Role | Phone | + +------+ + | Chance Dudley MD | PCP | | + +------+ + Encounter Details +--------+ + + + + | Date | Type | Department | Care Team | Description | +--------+ + + + + | 07/10/ | Hospital | [facility] | Chance Dudley, | | | 2012 | Encounter | MED CTR DIETARY | [address] | | | | | [address] [place] | [place], [place] | | | | | [place] [address] | [address] | | | | | [phone] | | | +--------+ + + + [...] [place] | | | | | | [address] | | | | | | | | +--------+---------+ + + + documented as of this encounter Visit Diagnoses Not on filedocumented in this encounter"
--- OUTSIDE RECORDS SUMMARY | ~2020-07-13 | XMS | Encounter Summary ---
Demographics + + + | Address | [address] | | | [place] [address] | + + + | Home Phone [...] | | | | | [place] [address] | | + + + + + Care Team Providers + +------+ + | Care Embedded Systems Software Developer Name | Role | Phone [...] + | 09/26/ | Telephone | [facility] | Chance Dudley, | Referral | | 2018 | | [facility] [place] | [address] | (PreAuthorization) | | | | [address] | [place] | | | | | [place] | [address] | | | | | [address] | | | | | | [phone] | | | +--------+ + + + [...] XXXY), hypogonadism and Vit D Deficiency. Per [facility] - his karyotype abnormality doesn't qualify. [...] [place] | | | | | | [address] | | | | | | | [...]
--- OUTSIDE RECORDS SUMMARY | ~2020-07-13 | XMS | Encounter Summary ---
Demographics + + + | Address | [address] | | | [place] [address] | + + + | Home Phone [...] | | | | | [place] [address] | | + + + + + Care Team Providers + +------+ + | Care President Financial Institution Name | Role | Phone | + +------+ + | Chance Dudley MD | PCP | | + +------+ + Reason for Visit +---------+--------+ + | Reason | Onset | Comments | | | Date | | +---------+--------+ + | Results | 07/06/ | | | | 2019 | | +---------+--------+ + Encounter Details +--------+ + + + + | Date | Type | Department | Care Team | Description | +--------+ + + + + | 07/06/ | Telephone | [facility] | Chance Dudley, | Results | | 2019 | | MED[facility] [place] | [address] | | | | | [address] | [place], [place] | | | | | [place], [place] | [address] | | | | | [address] | | | | | | [phone] | | | +--------+ + + + [...] this encounter Miscellaneous Notes Telephone Encounter - Tamy Lujan CMA - 07/17/2019 2:17 PM PDTCalled patient relaying his results. He states since he had his blood drawn on 07/05/19 he has had a feeling of a floating sensati on inside of his body Denies dizziness, light headedness, speech difficulties or confusion. He states he was considering going to the ER for this. Asked if he is wanting to be seen in the ER today and he declines. Let him know if he feels like at any point he needs to be evaluated by the ER, he should pr esent. He is wanting to be scheduled to be seen for this issue and would like to be seen earlier t montejo 08/02/[address] Dudley. Appointment made for patient with Nadia on 07/19/19 elephone Encounter - Lakia Daugherty LPN - 07/09/2019 11: 40 AM PDTCalled and left a message with patient's mom for patient to call back. elephone Encounter - Lakia Daugherty LPN - 07/06/2019 8:25 AM PDTCalled and left a voicemail message for artem mars to call back. elephone Encounter - Lakia Daugherty LPN - 07/06/2019 7:35 AM PDT----- Message from MD jong Yanez at 07/05/2019 19:02 PDT ----- Will you please let Stiven know that his labs are very good. His anemia resolved and his blood sugars are solidly in a normal range - he is no longer in diabetes range. Encourage him to keep up the great work and to follow-up with us in ~4 weeks. Sooner if needed. Thanks, Saurabh Dudley MD documented in this encounter [...]
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
--- OUTSIDE RECORDS SUMMARY | ~2020-07-13 | XMS | Encounter Summary ---
Demographics + + + | Address | [address] | | | [place] [address] | + + + | Home Phone [...] Author + + + | Author | [facility] | | | and [place] | + + + | Organization | [facility] | | | [...] [place] | | | | | [place] [address] | | + + + + + Care Team Providers + +------+ + | Care Vehicle Operator Name | Role | Phone | + +------+ + PCP | Unavailable | + +------+ + Encounter Details +--------+ + + + + | Date | Type | Department | Care Team | Description | +--------+ + + + + | 09/27/ | Hospital | [facility] | | | | 2001 | Encounter | MED CTR EMERGENCY | | | | | | CENTER [address] | | | | | | [place] | | | | | | [address] | | | | | | [phone] | | | +--------+ + + + [...]
--- OUTSIDE RECORDS SUMMARY | ~2020-07-13 | XMS | Encounter Summary ---
Demographics + + + | Address | [address] | | | [place] [address] | + + + | Home Phone [...] | | | | | [place] [address] | | + + + + + Care Team Providers + +------+ + | Care Shank Boner Name | Role | Phone | + +------+ + | Chance Dudley MD | PCP | | + +------+ + Encounter Details +--------+ + + + + | Date | Type | Department | Care Team | Description | +--------+ + + + + | 07/10/ | Hospital | [facility] | Chance Dudley, | | | 2012 | Encounter | MED CTR DIETARY | [address] | | | | | [address] [place] | [place], [place] | | | | | [place] [address] | [address] | | | | | [phone] | | | +--------+ + + + [...] [place] | | | | | | [address] | | | | | | | | +--------+---------+ + + + documented as of this encounter Visit Diagnoses Not on filedocumented in this encounter"
--- OUTSIDE RECORDS SUMMARY | ~2020-07-13 | XMS | Encounter Summary ---
Demographics + + + | Address | [address] | | | [place] [address] | + + + | Home Phone [...] Author + + + | Author | [facility] | | | and [place] | + + + | Organization | [facility] | | | and [...] | | | | | [place] [address] | | + + + + + Care Team Providers + +------+ + | Care Market Development Trainer Name | Role | Phone | + [...] Results | | 2020 | | [facility] [place] | [address] | | | | | [address] | [place], [place] | | | | | [place], [place] | [address] | | | | | [address] | | | | | | [phone] | | | +--------+ + + + [...]
--- OUTSIDE RECORDS SUMMARY | ~2020-07-13 | XMS | Encounter Summary ---
Demographics + + + | Address | [address] | | | [place] [address] | + + + | Home Phone | | + + + | Preferred Language | Unknown | + + + | Marital Status | Single | + + + | Jain Affiliation | Unknown | + + + [...] | | | | | [place] [address] | | + + + + + Care Team Providers + +------+ + | Care Film Rental Clerk Name | Role | Phone | [...] Results | | 2017 | | [facility]IC[facility] [place] | [facility] [address] | | | | | [address] | [place], [place] | | | | | [place], [place] | [address] | | | | | [address] | | | | | | [phone] | | | +--------+ + + + [...] up now as he is going to [place] for a few weeks. Unsure when he [...] [place] | | | | | | [address] | | | | | | | | +--------+---------+ + + + documented as of this encounter Visit Diagnoses Not on filedocumented in this encounter"
--- OUTSIDE RECORDS SUMMARY | ~2020-07-13 | XMS | Encounter Summary ---
Demographics + + + | Address | [address] | | | [place] [address] | + + + | Home Phone [...] | | | | | [place] [address] | | + + + + + Care Team Providers + +------+ + | Care Heavy Equipment Sales Manager Name | Role | Phone | + +------+ + | Chance Dudley MD | PCP | | + +------+ + Encounter Details +--------+ + + + + | Date | Type | Department | Care Team | Description | +--------+ + + + + | 05/30/ | Hospital | [facility] | Chance Dudley, | SOB (shortness of | | 2020 | Encounter | MED CTR PULMONARY | [address] | breath); Mild | | | | FUNCTION [address] | [place], [place] | intermittent asthma | | | | [place], | [address] | without complication | | | | [place] [address] | | | | | | [phone] | | | +--------+ + + + [...] | 0 | | | | (MYCOSTATIN) [id number] | topically 2 times | | | [...] Madison Tavarez MD, 06/09/2020 10:31 AM PDT [facility] signed by Madison Tavarez MD at 0 [...] [place] | | | | | | [address] | | | | | | | [...] MD, 06/09/2020 10:31 | | | AM [facility] | | |IMPRESSION: Spirometry is [...] AM | | |PDT | | |[facility] | | + + + documented in this encounter Visit Diagnoses + + | Diagnosis | + + | SOB (shortness of breath) Shortness of breath | + + | Mild intermittent asthma without complication Unspecified asthma | + + documented in this encounter"
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
--- OUTSIDE RECORDS SUMMARY | ~2020-07-13 | XMS | Encounter Summary ---
Demographics + + + | Address | [address] | | | [place] [address] | + + + | Home Phone [...] | | | | | [place] [address] | | + + + + + Care Team Providers + +------+ + | Care Holter Technician Name | Role | Phone | [...] Refill | | 2019 | | [facility] [place] | [address] | | | | | [address] | [place] | | | | | [place], [place] | [address] | | | | | [address] | | | | | | [phone] | | | +--------+--------+ + + + [...] [place] | | | | | | [address] | | | | | | | | +--------+---------+ + + + documented as of this encounter Visit Diagnoses Not on filedocumented in this encounter"
--- OUTSIDE RECORDS SUMMARY | ~2020-07-13 | XMS | Encounter Summary ---
Demographics + + + | Address | [address] | | | [place] [address] | + + + | Home Phone | | + + + | Preferred Language | Unknown | + + + | Marital Status | Single | + + + | Mu-Ism Affiliation | Unknown | + + + | Race | White | + + + | Ethnic Group | Not or | + + + Author + + + | Author | [facility] | | | and [place] | + + + | Organization | [facility] | | | [...] | | | | | [place] [address] | | + + + + + Care Team Providers + +------+ + | Care Fisheries Management Biologist Name | Role | Phone | [...] Results | | 2019 | | [facility] [place] | [address] | | | | | [address] | [place], [place] | | | | | [place], [place] | [address] | | | | | [address] | | | | | | [phone] | | | +--------+ + + + [...]
--- OUTSIDE RECORDS SUMMARY | ~2020-07-13 | XMS | Encounter Summary ---
Demographics + + + | Address | [address] | | | [place] [address] | + + + | Home Phone [...] [place] | | | | | [place] [address] | | + + + + + Care Team Providers + +------+ + | Care Education Intern Name | Role | Phone | + [...] | | | | CENTER [address] | [place] | | | | | [place] | [address] | | | | | [address] | | | | | | [phone] | | | +--------+ + + + [...] through Care Everywhere.Chest Pain, Unc ertain Cause (Trinidadian)documented in this encounter Medications at Time of [...] 1 | 04/19/20 | 03/29/201 | | (MAXALT-EXPERIMENTAL PLASTICS FABRICATOR) 10 mg | mouth as needed for [...] wilkerson MD - 02/2017 6:44 PM PDT [facility] Stiven Davila Emergency Department Encounter Note [address] [place] [address] PCP:Chance Dudley MD ED10 CHIEF COMPLAINT: Chief Complaint Patient presents with Chest Pain Shortness of Breath HPI Stiven Davila is a 32 y.o. male who presents to the Emergency Department with burning left sided chest pain that has been going on for the last two hours. This began when he go t home from work. 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 [...] Location: [facility] MAIN OR CURRENT MEDICATIONS Previous Medications RIZATRIPTAN (MAXALT-EXPERIMENTAL PLASTICS FABRICATOR) 10 MG DISINTEGRATING TABLET Take 1 tablet [...] Social History Narrative Raised by mom in [place], [place]. Father not involved, drug addict. Lives with mom and younger brother. Children: None Schooling: HS graduate, required specialized education plan. A couple courses in college . He is on disability due to learning disability. Employment: Unemployed. Wants to work for "[employer] He completed the [employer] for it. He first needs to get [...] No wheezes, no rales. Patient's work of [employer] rivka is normal. Cardiovascular: Normal S1 S2. [...] were reviewed along with EMS notes and assisted record s if applicable. Medication and Allergy lists reviewed in [facility]. Nurses note and old record s were reviewed if available within [facility] ER course 18:44 - Patient care initiated. [...] worsen Contact information: [address] [facility] [address] New Prescriptions No medications on file Discontinued Medications No medications on file Discharge References/Attachments Chest Pain, Uncertain Cause (Trinidadian) Portions of this chart may have been created with [employer] voice recognition software. Occasi onal wrong-word or [...] [place] | | | | | | [address] | | | | | | | [...] | | | | | | [employer] | | | | | [...] + | [facility] | [address] | [place] | [phone] | | [facility] | | [address] | | | - LABORATORY | | [...] mL/min/1.73m2 | [facility] | | | [place] | RATE,ESTIMATED | | MEDICAL | | | | mL/min/1.11e8Xpvs than | | CENTER - | | [...] [address] | [place] | [phone] | | [facility] | | [address] | | | - LABORATORY | | [...] | | Cells | | | [facility] | | | | | | MEDICAL [...] | | | | g/dL | [facility] | | | | | | MEDICAL [...] ST. | [address] | [place], [place] | [phone] | | [facility] | | [address] | | | - LABORATORY | | [...] | | | | NOREEN JACKSON MD ([id number]) | | | | | | on [...]
--- OUTSIDE RECORDS SUMMARY | ~2020-07-13 | XMS | Encounter Summary ---
Demographics + + + | Address | [address] | | | [place] [address] | + + + | Home Phone [...] | | | | | [place] [address] | | + + + + + Care Team Providers + +------+ + | Care Racing Secretary And Handicapper Name | Role | Phone | + [...] | | | | acute cor | [address] | [place] [address] | | | | | pulmonale | Phone: | Phone: | | | | | ([facility]) | [phone] | [phone] | | | | | | Fax: | Fax: | | | | | | [phone] | [phone] | + + + + + + + Encounter Details +--------+ + + + + | Date | Type | Department | Care Team | Description | +--------+ + + + + | 12/20/ | Anti-coag | [facility] | Stefan Corrigan, | Other acute | | 2020 | visit | CLINIC [address] | RESIDENTIAL ADVISOR [address] | pulmonary embolism | | | | [place]VE [place] | [place] | without acute cor | | | | [address] | [address] | pulmonale (HCC) | | | | [phone] | | | +--------+ + + + [...] be different f rom the original. [facility] Patient Name: Stiven Davila | Age: 34 y.o. | : 1985 | Medical Record Number:[id number] | Author: FLORENCE Araujo | Date of [...] Send INR reminders to: [facility] Comments: Assessment/Plan: 1. Other acute pulmonary embolism without acute cor pulmonale (HCC) - POCT PT/INR fingerstick See Anticoagulation Summary above. Warfarin schedule adjusted. [id number] I spent 20 minutes face to face [...] this chart may have been created with [place] [employer] voice recognition software. Occasi onal wrong-word or [...] [place] | | | | | | [address] | | | | | | | [...]
--- OUTSIDE RECORDS SUMMARY | ~2020-07-13 | XMS | Encounter Summary ---
Demographics + + + | Address | [address] | | | [place] [address] | + + + | Home Phone [...] | | | | | [place] [address] | | + + + + + Care Team Providers + +------+ + | Care Websphere Commerce Developer Name | Role | Phone | [...] W | | | | | | [place], | | | | | | [place] [address] | | | | | | [phone] | | | +--------+ + + + [...] [place] | | | | | | [address] | | | | | | | | +--------+---------+ + + + documented as of this encounter Visit Diagnoses Not on filedocumented in this encounter"
--- OUTSIDE RECORDS SUMMARY | ~2020-07-13 | XMS | Encounter Summary ---
Demographics + + + | Address | [address] | | | [place] [address] | + + + | Home Phone [...] | | | | | [place] [address] | | + + + + + Care Team Providers + +------+ + | Care Canvas Goods Maker Name | Role | Phone | + +------+ + | Chance Dudley MD | PCP | | + +------+ + Encounter Details +--------+ + + + + | Date | Type | Department | Care Team | Description | +--------+ + + + + | 09/03/ | Hospital | [facility] | Chance Dudley, | Chronic left | | 2016 | Encounter | MED CTR XRAY [address] | MD [address] | shoulder pain | | | | [place] | [place], [place] | | | | | [place] [address] | [address] | | | | | [phone] | | | | | | | Rad, [facility] | | +--------+ + + + + [...] [place] | | | | | | [id number] | | | | | | | | +--------+---------+ + + + documented as of this encounter Procedures + +--------+ + + + | Procedure Name | Priori | Date/Time | Associated Diagnosis | Comments | | | ty | | | | + +--------+ + + + | FL SHOULDER | Routin | 09/03/2016 | Chronic left | Results for this | | INJECTION LEFT FOR | e | 8:51 AM | shoulder pain | procedure are in the | | MRI OR CT | | PDT | | results section. | + +--------+ + + + documented in this encounter Results FL Shoulder Injection Left for MRI or CT (09/03/2016 8:51 AM PDT) + + | Specimen | + + | | + + + + + | Narrative | Performed At | + + + | EXAM: FL SHOULDER INJECTION LEFT FOR MRI OR CT dated 09/03/2016 7:22 | [facility] | | AM HISTORY:Chronic left shoulder pain PROCEDURE: The risks, | [facility] | | benefits, indications, and alternatives [...] + | Nav Galdamez Results In - 09/03/2016 10:10 AM PDT [...] followed by a 1 cc injection of [id number] confirmed | | intra-articular positioning of the [...] [address] | [place] | [phone] | | [facility] | | [address] | | | - IMAGING | | | | + + + + + documented in this encounter Visit Diagnoses + + | Diagnosis | + + | Chronic left shoulder pain Pain in joint, shoulder region | + + documented in this encounter Administered Medications + +--------+ + +------+------+ | Medication Order | MAR | Action | Dose | Rate | Site | | | Action | Date | | | | + +--------+ + +------+------+ | gadopentetate (MAGNEVIST) | Given | 09/03/20 | 0.01 mLs | | | | injection 0.01 mL 0.01 mL, | | 16 8:45 | | | | | Intra-articular, ONCE PRN, Other, | | AM PDT | | | | | Starting 09/03/16 at 0850, | | | | | | | For 1 dose, MRI | | | | | | + +--------+ + +------+------+ +---+---+ | | | +---+---+ + +-------+ +-------+---+---+ | iohexol (OMNIPAQUE 300) 300 | Given | 09/03/20 | 5 mLs | | | | mg/mL injection 5 mL 5 mL, | | 16 8:45 | | | | | Intra-articular, ONCE PRN, Other, | | AM PDT | | | | | Starting 09/03/16 at 0850, | | | | | | | For 1 dose, Radiology | | | | | | + +-------+ +-------+---+---+ +---+---+ | | | +---+---+ documented in this encounter"
--- OUTSIDE RECORDS SUMMARY | ~2020-07-13 | XMS | Encounter Summary ---
Demographics + + + | Address | [address] | | | [place] [address] | + + + | Home Phone [...] | | | | | [place] [address] | | + + + + + Care Team Providers + +------+ + | Care Commercial Maintenance Technician Name | Role | Phone | [...] + | 06/25/ | Telephone | [facility] | Chance Dudley, | Care Coordination | | 2019 | | MEDIC[facility] | [address] | | | | | [address] | [place] | | | | | [place] | [address] | | | | | [address] | | | | | | [phone] | | | +--------+ + + + [...] FILE FOR THIS PATIENT. REAL MRN IS [id number].E lectronically signed by Enid Watson RN at [...]
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
--- OUTSIDE RECORDS SUMMARY | ~2020-07-13 | XMS | Encounter Summary ---
Demographics + + + | Address | [address] | | | [place] [address] | + + + | Home Phone [...] | | | | | [place] [address] | | + + + + + Care Team Providers + +------+ + | Care Foster Care Therapist Name | Role | Phone | [...] + | 06/25/ | Telephone | [facility] | Chance Dudley, | Care Coordination | | 2019 | | [facility] | [address] | | | | | [address] | [place] | | | | | [place] | [address] | | | | | [address] | | | | | | [phone] | | | +--------+ + + + [...] discharged. Future Appointments Date Time Provider Department [place] 07/05/2019 11:30 Chance Dudley MD [facility] Second chart on file. ER admit is on chart [id number]. documented in this encounter Plan of Treatment [...]
--- OUTSIDE RECORDS SUMMARY | ~2020-07-13 | XMS | Encounter Summary ---
Demographics + + + | Address | [address] | | | [place] [address] | + + + | Home Phone [...] Author + + + | Author | [facility] | | | and [place] | + + + | Organization | [facility] | | | [...] [place] | | | | | [place] [address] | | + + + + + Care Team Providers + +------+ + | Care Industrial Registered Nurse Name | Role | Phone | + +------+ + | Chance Dudley MD | PCP | | + +------+ + Encounter Details +--------+ + + + + | Date | Type | Department | Care Team | Description | +--------+ + + + + | 09/18/ | Hospital | [facility] | Chance Dudley, | Prediabetes; Chronic | | 2013 | Encounter | [facility] | MD Man[address] | wound of extremity; | | | | [address] [place] | [place], [place] | Bilateral lower | | | | [place], [place] | [address] | extremity edema | | | | [address] | | | | | | [phone] | | | +--------+ + + + [...] [place] | | | | | | [id number] | | | | | | | [...] + | [facility] [facility] | [address] | [place] | [phone] | | [facility] | | [address] | | | - LABORATORY | | | | + + + + + | [facility] [facility] | [address] | [place] | | | [facility] | | [address] | | | - LABORATORY [...] - 1.030 | [facility] | | | [place], | | | [facility] | | [...] + | [facility] | [address] | [place], [place] | [phone] | | [facility] | | [address] | | | - LABORATORY | | | | + + + + + | [facility] | [address] | [place], [place] | | | [facility] | | [address], [facility] | | | - LABORATORY | [...] + | [facility] [facility] | [address] | [place] | [phone] | | [facility] | | [address] | | | - LABORATORY | | | | + + + + + | [address] | [address] | [place] | | | [facility] | | [address] | | | - LABORATORY [...] [address] | [place] | [phone] | | [facility] | | [address] | | | - LABORATORY | | | | + + + + + | [facility] | [address] | [place] | | | [facility] | | [address], [facility] | | | - LABORATORY | [...] - 1.030 | [facility] | | | [place], | | | [facility] | | [...] + | [facility] | [address] | [place], [place] | [phone] | | [facility] | | [address] | | | - LABORATORY | | | | + + + + + | [facility] | [address] | [place], [place] | | | [facility] | | [address] | | | - LABORATORY [...] + | [facility] | [address] | [place] | [phone] | | [facility] | | [address] | | | - LABORATORY | | | | + + + + + | [facility] | [address] | [place] | | | [facility] | | [address], [facility] | | | - LABORATORY | [...] + | [facility] | [address] | [place] | [phone] | | [facility] | | [address] | | | - LABORATORY | | | | + + + + + | [facility] | [address] | [place] | | | [facility] | | [address] | | | - LABORATORY [...] + | [address] [facility] | [address] | [place] | [phone] | | [facility] | | [address] | | | - LABORATORY | | | | + + + + + | [address] | [address] | [place], [place] | | | [facility] | | [address] | | | - LABORATORY [...]
--- OUTSIDE RECORDS SUMMARY | ~2020-07-13 | XMS | Encounter Summary ---
Demographics + + + | Address | [address] | | | [place] [address] | + + + | Home Phone [...] | | | | | [place] [address] | | + + + + + Care Team Providers + +------+ + | Care Bag Tester Name | Role | Phone | + [...] + | 12/03/ | Telephone | [facility] | Chance Dudley, | Care Coordination | | 2019 | | [facility] | [address] | | | | | [address] | [place] | | | | | [place] | [address] | | | | | [address] | | | | | | [phone] | | | +--------+ + + + [...] discharged. Future Appointments Date Time Provider Department [place] 12/11/2019 3:00 PM Chance Dudley MD [facility] [place] [facility] documented in this encounter Plan of [...] GREEN | | | | | | [id number] | | | | | | | | +--------+---------+ + + + documented as of this encounter Visit Diagnoses Not on filedocumented in this encounter"
--- OUTSIDE RECORDS SUMMARY | ~2020-07-13 | XMS | Encounter Summary ---
Demographics + + + | Address | [address] | | | [place] [address] | + + + | Home Phone [...] | | | | | [place] [address] | | + + + + + Care Team Providers + +------+ + | Care Leather Crafter Name | Role | Phone | + +------+ + | Chance Dudley MD | PCP | | + +------+ + Reason for Visit +--------+--------+ + | Reason | Onset | Comments | | | Date | | +--------+--------+ + | Other | 12/05/ | | | | 2020 | | +--------+--------+ + Encounter Details +--------+ + + + + | Date | Type | Department | Care Team | Description | +--------+ + + + + | 12/05/ | Telephone | [facility] [place] | Keren Luna | Other | | 2020 | | GASTROENTEROLOGY | MD Alysha [address] | | | | | [address] [place] | [address] [place] [address] | | | | | [address] [place], [place] | [place], [place] | | | | | [address] | [address] | | | | | [phone] | | | +--------+ + + + [...] this encounter Miscellaneous Notes Telephone Encounter - Raina Garcia - 12/05/2019 9:04 AM PSTPatient returned call to Lida nash for results, please call him back when available. Thank you documented in this encounter Plan [...] [place] | | | | | | [address] | | | | | | | | +--------+---------+ + + + documented as of this encounter Visit Diagnoses Not on filedocumented in this encounter"
--- OUTSIDE RECORDS SUMMARY | ~2020-07-13 | XMS | Encounter Summary ---
Demographics + + + | Address | [address] | | | [place] [address] | + + + | Home Phone [...] | | | | | [place] [address] | | + + + + + Care Team Providers + +------+ + | Care Driver Supervisor Name | Role | Phone | [...] | | 2020 | | [facility] [place] [facility] | [address] | | | | | MEDICINE [place] | [place], [place] | | | | | [address] | [address] | | | | | [place] [address] [place], | | | | | | [place] [address] | | | | | | [phone] | | | +--------+ + + + [...] to breathe well. She was transferred to [facility] to set up an appointment.Electro nically [...]
--- OUTSIDE RECORDS SUMMARY | ~2020-07-13 | XMS | Encounter Summary ---
Demographics + + + | Address | [address] | | | [place] [address] | + + + | Home Phone [...] Author + + + | Author | [facility] | | | and [place] | + + + | Organization | [facility] | | [...] | | | | | [place] [address] | | + + + + + Care Team Providers + +------+ + | Care Ppap Coordinator Name | Role | Phone | [...] | Chance Brewster MD | [address] | | | | | (dyspnea on | [address] | [place], | | | | | exertion) | AVE [place] | [place] | | | | | Orthopnea | [place], [place] | [address] | | | | | Procedures | [address] | Phone: | | | | | ECHO | Phone: | [phone] | | | | | Complete | [phone] | Fax: | | | | | | Fax: | [phone] | | | | | | [phone] | | +--------+--------+ + + + + [...] | Chance Brewster MD | [address] | | | | | (dyspnea on | [address] | [place], | | | | | exertion) | AVE [place] | [place] | | | | | Orthopnea | [place], [place] | [address] | | | | | Procedures | [address] | Phone: | | | | | ECHO | Phone: | [phone] | | | | | Complete | [phone] | Fax: | | | | | | Fax: | [phone] | | | | | | [phone] | | +--------+--------+ + + + + Encounter Details +--------+ + + + + | Date | Type | Department | Care Team | Description | +--------+ + + + + | 06/24/ | Hospital | [facility] | Chance Dudley, | MATHEWS (dyspnea on | | 2020 | Encounter | MED CTR ECHO [address] | MD [address] | exertion); Orthopnea | | | | [address] [place] | [place] | | | | | [place] [address] | [address] | | | | | [phone] | | | +--------+ + + + [...] | 0 | | | | (MYCOSTATIN) [id number] | topically 2 times | | | [...] | | | | | [place] | | | | | | [address] | | | | | | | [...] | | | | | | n [place] | | | | | + +--------+ [...]
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
--- OUTSIDE RECORDS SUMMARY | ~2020-07-13 | XMS | Encounter Summary ---
Demographics + + + | Address | [address] | | | [place] [address] | + + + | Home Phone [...] | | | | | [place] [address] | | + + + + + Care Team Providers + +------+ + | Care Spa Host Name | Role | Phone | + [...] 12/14/ | Telephone | [facility] | Chance Dudley, | Medication | | 2019 | | [facility] | [address] | Management | | | | [address] | [place] | | | | | [place], [place] | [address] | | | | | [address] | | | | | | [phone] | | | +--------+ + + + [...]
--- OUTSIDE RECORDS SUMMARY | ~2020-07-13 | XMS | Encounter Summary ---
Demographics + + + | Address | [address] | | | [place] [address] | + + + | Home Phone | | + + + | Preferred Language | Unknown | + + + | Marital Status | Single | + + + | Confucianism Affiliation | Unknown | + + + [...] [place] | | | | | [place] [address] | | + + + + + Care Team Providers + +------+ + | Care Clinical Documentation Specialist Name | Role | Phone | [...] | Closed | Santi | [address] | | | | | fracture of | MD Keenan | [place], | | | | | first | [address] | [place] | | | | | metacarpal | [place] | [address] | | | | | bone of left | [place] | Phone: | | | | | hand with | [address] | [phone] | | | | | ligament | Phone: | Fax: | | | | | tear with | [phone] | [phone] | | | | | routine | Fax: | | | | | | healing, | [phone] | | | | | | subsequent [...] | Closed | Santi | [address] | | | | | fracture of | MD Keenan | [place], | | | | | first | [address] | [place] | | | | | metacarpal | [place] | [address] | | | | | bone of left | [place] | Phone: | | | | | hand with | [address] | [phone] | | | | | ligament | Phone: | Fax: | | | | | tear with | [phone] | [phone] | | | | | routine | Fax: | | | | | | healing, | [phone] | | | | | | subsequent [...] + + | 08/17/ | Hospital | [facility] | Santi Mckeon | Closed fracture of | | 2019 | Encounter | MED CTR MRI [address] | [place], MD [address] | first metacarpal | | | | [address] [place], | [address] [place] | bone of left hand | | | | [place] [address] | [place] [address] | with ligament tear | | | | [phone] | [phone] | with routine | | | | [...] | 0 | | | | (MYCOSTATIN) 565362 | topically 2 times | | | [...] [place] | | | | | | [address] | | | | | | | [...]
--- OUTSIDE RECORDS SUMMARY | ~2020-07-13 | XMS | Encounter Summary ---
Demographics + + + | Address | [address] | | | [place] [address] | + + + | Home Phone [...] | | | | | [place] [address] | | + + + + + Care Team Providers + +------+ + | Care Financial Manager Name | Role | Phone | [...] Follow-up | | 2018 | | [facility] | [address] | | | | | [address] | [place] | | | | | [place] | [address] | | | | | [address] | | | | | | [phone] | | | +--------+ + + + [...] this encounter Miscellaneous Notes Telephone Encounter - Nanda Kimbrough RN - 05/30/2018 11:20 AM PDTPatient [...] Kimbrough RN - 05/30/2018 11:04 AM PDT [facility] ED follow up call Date of visit: [...] PLAS None 06/26/2018 9:30 Chance Dudley MD [facility] documented in this encounter Plan of [...]
--- OUTSIDE RECORDS SUMMARY | ~2020-07-13 | XMS | Encounter Summary ---
Demographics + + + | Address | [address] | | | [place] [address] | + + + | Home Phone [...] | | | | | [place] [address] | | + + + + + Care Team Providers + +------+ + | Care Soakers Supervisor Name | Role | Phone | + +------+ + | Chance Dudley MD | PCP | | + +------+ + Reason for Visit +--------+--------+ + | Reason | Onset | Comments | | | Date | | +--------+--------+ + | Other | 06/26/ | | | | 2018 | | +--------+--------+ + Encounter Details +--------+ + + + + | Date | Type | Department | Care Team | Description | +--------+ + + + + | 06/26/ | Telephone | [facility] | Chance Dudley, | Other | | 2019 | | MEDICINE [place] | [address] | | | | | [address] | [place] | | | | | [place], [place] | [address] | | | | | [address] | | | | | | [phone] | | | +--------+ + + + [...] Telephone Encounter - Enid Watson RN - 06/26/2019 4:16 PM PDTThis patient has two charts. Someone already submitted a merge chart request, but wanted to send this to you to follow up. This chart is the duplicate chart. Patient's actual chart is [id number] Thank you. doc umented in this encounter Plan of Treatment +--------+---------+ [...]
--- OUTSIDE RECORDS SUMMARY | ~2020-07-13 | XMS | Encounter Summary ---
Demographics + + + | Address | [address] | | | [place] [address] | + + + | Home Phone [...] | | | | | [place] [address] | | + + + + + Care Team Providers + +------+ + | Care Sorting And Folding Supervisor Name | Role | Phone | [...] | 05/26/ | Telephone | [facility] | Chance Dudley, | Referral Question | | 2019 | | [facility]ICINE [place] | [address] | | | | | [address] | [place] | | | | | [place] | [address] | | | | | [address] | | | | | | [phone] | | | +--------+ + + + [...] be done.. Ashlee can be reached at [phone] signed by Sun Pereira at 05/26/2020 12:13 [...] [place] | | | | | | [address] | | | | | | | | +--------+---------+ + + + documented as of this encounter Visit Diagnoses Not on filedocumented in this encounter"
--- OUTSIDE RECORDS SUMMARY | ~2020-07-13 | XMS | Encounter Summary ---
Demographics + + + | Address | [address] | | | [place] [address] | + + + | Home Phone [...] [place] | | | | | [place] [address] | | + + + + + Care Team Providers + +------+ + | Care Library Services Coordinator Name | Role | Phone | [...] [place] | | | | | | [address] | [address] Phone: | | | | | | Phone: | [phone] | | | | | | [phone] | Fax: | | | | | | Fax: | [phone] | | | | | | [phone] | | +--------+ + + + + + Reason for Visit + + + | Reason | Comments | + + + | Wound Infection | Left leg | + + + Encounter Details +--------+---------+ + + + | Date | Type | Department | Care Team | Description | +--------+---------+ + + + | 06/05/ | Office | [facility] | Chance Dudley, | Chronic wound of | | 2013 | Visit | MEDICINE [facility] | [address] | extremity (Primary | | | | [address] | [place] | Dx); Screening for | | | | [place] | [address] | diabetes mellitus; | | | | [address] | | Elevated blood | | | | [phone] | | pressure; Bilateral | | | [...] C) rectal, after two days on antibiotics [id number] [place] [address]. All rights reserve d. This information is [...] A person usually gets the virus during garden consultant by kissing or touching the cold sore [...] I t can cause severe liver damage. Tdbd-sru-hjykibl remedies such as Campho-Phenique or Anbesol may [...] to pain Unusual irritability, drowsiness, or confusion 5742-0702 [facility], [address] [place] [address], [place] [id number]. All rights reserve d. This information is [...] change (He has lost 6 lbs via [facility]). HENT: Negative for congestion. Respiratory: [...] of cold sore outbreak FU: 1 week Saurbah Dudley MD raik, CELESTINO Suresh - 06/05/2013 1:18 PM PDTPatient is here to establish care. He has a left leg wound that has not healed since December. He complains of cold sores and would like a prescription for Acyclovir. documente d in this encounter Miscellaneous Notes Miscellaneous - ONLAILA FARLEYTN - 06/05/2013 12:00 AM PDT documented in [...] [place] | | | | | | [address] | | | | | | | [...] - 1.030 | [facility] | | | [place], | | | [facility] | | [...] + + | Performing | Address | City/[facility] | Phone Number | | Organization | | | | + + + + + | [facility] | [address] | [place], [place] | [phone] | | [facility] | | [address] | | | - LABORATORY | | | | + + + + + | [facility] | [address] | [place], [place] | | | [facility] | | [address], [facility] | | | - [...] [address] | [place] | [phone] | | [facility] | | [address] | | | - LABORATORY | | | | + + + + + | [facility] | [address] | [place] | | | [facility] | | [address], [facility] | | | - [...] + | [facility] | [address] | [place], [place] | [phone] | | [facility] | | [address] | | | - LABORATORY | | | | + + + + + | [facility] | [address] | [place], [place] | | | [facility] | | [address], [facility] | | | - [...] + | [facility] | [address] | [place], [place] | [phone] | | [facility] | | [address] | | | - LABORATORY | | | | + + + + + | [facility] | [address] | [place], [place] | | | [facility] | | [id number] [place] [address] | | | - LABORATORY | | [...] | [facility] | | | | [facility] | | MEDICAL | | | [...] + | [facility] | [address] | [place], [place] | [phone] | | [facility] | | [address] | | | - LABORATORY | | | | + + + + + | [facility] | [address] | [place], [place] | | | [facility] | | [address], [facility] | | | - [...] | | Monocytes | | | [facility] | | | | | | MEDICAL [...] + | [facility] | [address] | [place] | [phone] | | [facility] | | [address] | | | - LABORATORY | | | | + + + + + | [facility] | [address] | [place] | | | [facility] | | [id number] | | | - LABORATORY | [...] [address] | [place] | [phone] | | [facility] | | [address] | | | - LABORATORY | | | | + + + + + | [facility] | [address] | [place], [place] | | | [facility] | | [address], [facility] | | | - [...]
--- OUTSIDE RECORDS SUMMARY | ~2020-07-13 | XMS | Encounter Summary ---
Demographics + + + | Address | [address] | | | [place] [address] | + + + | Home Phone [...] [place] | | | | | [place] [address] | | + + + + + Care Team Providers + +------+ + | Care Trumpet Teacher Name | Role | Phone | [...] | Specialty | Orthopedic | Diagnoses | [place], | [place], | | | Services | [...] | | | | of left | [address] | [address] | | | | | glenoid | Phone: | Phone: | | | | | labrum, | [phone] | [phone] | | | | | subsequent | Fax: | | | | | | encounter | [phone] | | | | | | Recurrent [...] Referral | | 2015 | | [facility] | [address] | | | | | [address] | [place] | | | | | [place], [place] | [address] | | | | | [address] | | | | | | [phone] | | | +--------+ + + + [...] referral now and make sure our email production specialist works on it right away since [...] [place] | | | | | | [id number] | | | | | | | [...]
--- OUTSIDE RECORDS SUMMARY | ~2020-07-13 | XMS | Encounter Summary ---
Demographics + + + | Address | [address] | | | [place] [address] | + + + | Home Phone | | + + + | Preferred Language | Unknown | + + + | Marital Status | Single | + + + | Yarsani Affiliation | Unknown | + + + [...] MANRIQUE | | | | | [place] [address] | | + + + + + Care Team Providers + +------+ + | Care Iron Cutter Name | Role | Phone | [...] | visit | CLINIC [address] | [address]ER [address] | pulmonary embolism | | | | AVE [place] | [place] | without acute cor | | | | [address] | [address] | pulmonale (HCC) | | | | [phone] | | | +--------+ + + + [...] might be different f rom the original. [facility] Patient Name: Stiven Davila | Age: 34 y.o. | : 1985 | Medical Record Number:[id number] | Author: FLORENCE Araujo | Date of [...] Send INR reminders to: [facility] [employer] Comments: Assessment/Plan: 1. Other acute pulmonary embolism without acute cor pulmonale (HCC) - POCT PT/INR fingerstick See Anticoagulation Summary above. Warfarin schedule adjusted. Noli574 Calendar and Anticoagulant instructions reviewed with the patient. Electronically signed by: FLORENCE Araujo 12/24/2019 at 2:05 PM Portions of this chart may have been created with [employer] voice recognition software. Occasi onal wrong-word or [...] [place] | | | | | | [id number] | | | | | | | [...]
--- OUTSIDE RECORDS SUMMARY | ~2020-07-13 | XMS | Encounter Summary ---
Demographics + + + | Address | [address] | | | [place] [address] | + + + | Home Phone [...] | | | | | [place] [address] | | + + + + + Care Team Providers + +------+ + | Care Gas Reverser Name | Role | Phone | + [...] | 2019 | | GASTROENTEROLOGY | MD Alysha [address] | 2019 | | | | [address] [place] | [address] [place] [address] | GASTRITIS/HYPERPLAST | | | | [address] [place] | [place] | [place]) | | | | [address] | [address] | | | | | [phone] | | | +--------+ + + + [...] ults, verbalized understanding. Call transferred to the front end technician to schedule patient for a 3 month [...] daily for 3 months. (script sent to [facility] in [place]). Patient is to follow up in the [...] [place] | | | | | | [id number] | | | | | | | | +--------+---------+ + + + documented as of this encounter Visit Diagnoses Not on filedocumented in this encounter"
--- OUTSIDE RECORDS SUMMARY | ~2020-07-13 | XMS | Encounter Summary ---
Demographics + + + | Address | [address] | | | [place] [address] | + + + | Home Phone [...] MANRIQUE | | | | | [place] [address] | | + + + + + Care Team Providers + +------+ + | Care Die Press Operator Name | Role | Phone [...] | | | | CENTER [address] | [address] [place] | chronicity, | | | | [place], [place] | [place] [address] | unspecified | | | | [address] | [phone] | pulmonary embolism | | | | [phone] | | type, unspecified | | | | | | whether acute cor | | | | | | pulmonale present | | | | | | ([facility]) (Primary Dx) | +--------+ + [...] if you have any questions or concerns ([phone]) AttachmentsThe following attachments cannot be sent through Care Everywhere.Embolism, Pulmo nary (East Timorese)Warfarin, What to Know When Taking ([place]se)Warfarin tablets ([place]se)Enoxapar in injection ([place]ore[place])documented in this encounter Medications at Time of [...] | 0 | | | | (MYCOSTATIN) [id number] | topically 2 times | | | [...] to please feel free to call pharmacy ([phone]) for any fur ther questions or concerns. Thank you. Electronically signed by: Luz Elena Reina PharmD 12/11/2019 10:22 PM documented in this encounter ED Notes Peng Abad MD - 12/11/2019 8:48 PM PSTFormatting of this note might be diff erent from the original. [facility] Emergency Department Encounter Note [address] [place] [id number] PCP:Chance Dudley MD [phone] CHIEF COMPLAINT: Chief [...] the primary care doctor's office. Language line acupressurist made available and used to collect historical details as needed. 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 Priority: High Note Last Updated: 05/03/2017 Karyotype 48, XXXY S/P laparoscopic sleeve gastrectomy 09/26/2018 Priority: Medium Note Last Updated: 09/26/2018 09/14/[address] [facility] Chronic left shoulder pain 09/03/2016 Priority: Medium Learning disability 06/05/2013 Priority: Medium Obesity (BMI 30.0-34.9) 08/16/2019 Priority: Low Gross hematuria 12/11/2019 Class: Temporary Note Last Updated: 12/11/201912/2019: repeat UA 12/11/2019: UA negative Type 2 diabetes mellitus without complication, without long-term current use of insulin ([facility]) 04/19/2017 Recurrent dislocation, left shoulder 09/03/2016 Tear of left glenoid labrum 09/03/2016 Hypogonadism in male 08/10/2016 Note Last Updated: 05/03/201707/2016: [facility] 06/18/2013 Note Last Updated: 06/18/2013 LAST PSA:no record found RESULT: LAST COLONOSCOPY: RESULTno record found Past Surgical History: Procedure Laterality Date CHOLECYSTECTOMY, LAPAROSCOPIC 09/14/2018 [facility] at time of sleeve gastrectomy ELBOW SURGERY Left 1988 Left elbow-pins put in GASTRIC SURGERY gastric sleeve SHOULDER ARTHROSCOPY Left 10/08/2016 Procedure: Left Shoulder Arthroscopy w/ Labral Repair and Capsular Shift; Surgeon: Candie Murguia DO; Location: [facility] MAIN OR SLEEVE GASTROPLASTY 09/14/2018 [facility] UPPER GASTROINTESTINAL ENDOSCOPY N/A 12/03/2019 Procedure: EGD; Surgeon: Keren Luna MD; Location: [facility] MEDICAL PROCEDURE UNIT CURRENT MEDICATIONS IP/MOSAIC TECHNICIAN Home Medications Medication Sig acyclovir (ZOVIRAX) 400 MG tablet take 1 tablet by mouth five times a day AT FIRST SIGN S OF COLD SORE OUTBREAK Multiple Vitamins-Minerals (BARIATRIC MULTIVITAMINS/IRON PO) Take 1 tablet by mouth Marika ly. Chewables. For post-bariatric surgery nystatin (MYCOSTATIN) [id number] UNIT/GM powder Apply 1 Application topically 2 [...] Merged History Encounter Raised by mom in [place], [place]. Father not involved, drug addict. Lives with mom and younger brother. Children: None Schooling: HS graduate, required specialized education plan. A couple courses in college. 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 Employment: Unemployed. Wants to work for "[employer]." He completed the tra ining for it. [...] unspeci fied whether acute cor pulmonale present ([facility]) I26.99 415.19 Follow-up Information Chance Dudley MD. Call today. Specialty: Family Medicine Why: Follow up this week to have your INR checked. Contact information: [address] [place] [address] [facility]. Specialty: Emergency Medicine Why: If symptoms worsen Contact information: [address] [place] [address] Discharge Medication List as of 12/11/2019 [...] Portions of this chart were created with Tastemaker voice recognition software. Inadvertent so und alike substitutions may be present and are unintentional Peng Abad MD 12/11/19 [id number] Teddy Parker RN - 12/11/2019 6:26 PM [...] ST[address] | [address] | [place], [place] | [phone] | | [facility] | | [address] | | | - LABORATORY | | [...] | | | | | | [employer] | | | | | [...] [address] | [place] | [phone] | | [facility] | | [address] | | | - LABORATORY | | [...] 15 | 9 - 23 mg/dL | [facility] | | | | | | [facility] | | | | | | MEDICAL | | | | | | CENTER - | | | | | | LABORATORY | | + + + + + + | Creatinine | 0.80 | 0.70 - 1.30 | [facility] | | | | | mg/dL | [facility] | | | | | | MEDICAL | | | | | | CENTER - | | | | | | LABORATORY | | + + + + + + | eGFR, | >60Comment: GLOMERULAR | >=60 | [facility] | | | non- | FILTRATION | mL/min/1.73m2 | [facility] | | | Chinese | RATE,ESTIMATED | | MEDICAL | | | | mL/min/1.91f8Yhdy than | | CENTER - | | [...] [address] | [place] | [phone] | | [facility] | | [address] | | | - LABORATORY | | [...] [address] | [place] | [phone] | | [facility] | | [address] | | | - LABORATORY | | [...] MD | | | | | | ([id number]) on 12/12/2019 | | | | | [...]
--- OUTSIDE RECORDS SUMMARY | ~2020-07-13 | XMS | Encounter Summary ---
Demographics + + + | Address | [address] [facility] [facility] [address] | | | [place] [address] | + + + | Home Phone [...] | | | | | [place] [address] | | + + + + + Care Team Providers + +------+ + | Care Floor Steward/Stewardess Name | Role | Phone | + [...] + + | 09/26/ | Office | [facility] | Chance Dudley, | Hypogonadism in male | | 2018 | Visit | [facility] | [address] | (Primary Dx); | | | | [address] | [place] | [place] | | | | [place] | [address] | syndrome; Type 2 | | | | [address] | | diabetes mellitus | | | | [phone] | | without | | | | | | complication, | | | | | | without long-term | | | | | | current use of | | | | | | insulin ([facility]); BMI | | | | | | [...] 2 diet and medications as directed by [facility] Please stop by the lab for blood work in mid-late October. You need to be fasting - nothi ng to eat or drink other than water or black coffee for 10 hours. No alcohol for 24 hours. Lab Hours: Tuesday-Tuesday 7 am to 5:[address] Tuesday ONLY @ [facility] 8 am to 4 pm [...] Isabel and Dr Lida mcdowell. Discharged from [facility] 09/15/18. He had 1 week post-op visit and has been in communic ation with qa lead and is adhering to bariatric diet. Plan [...] sores. Acyclovir helps. Had eye exam at [facility] within the last 3 months. Sensation in [...] BMI 40.0-44.9, adult s/p laparoscopic sleeve gastrectomy: [facility] records reviewed. Greatl y appreciate their assistance. [...] [place] | | | | | | [id number] | | | | | | | [...] 5.8 | 4.3 - 6.0 % | [facility] | | | A1c | | | [facility] | | | | | | MEDICAL | | | | | | CENTER - | | | | | | LABORATORY | | + +-------+ + + + | Estimated | 120 | mg/dL | [place] | | | Average | | | [...] [address] | [place] | [phone] | | [facility] | | [address] | | | - LABORATORY | | [...]
--- OUTSIDE RECORDS SUMMARY | ~2020-07-13 | XMS | Encounter Summary ---
Demographics + + + | Address | [address] | | | [place] [address] | + + + | Home Phone | | + + + | Preferred Language | Unknown | + + + | Marital Status | Single | + + + | Samaritan Affiliation | Unknown | + + + [...] | | | | | [place] [address] | | + + + + + Care Team Providers + +------+ + | Care Manager Financial Systems Name | Role | Phone | + [...] + | 06/26/ | Telephone | [facility] | Chance Dudley, | Other | | 2019 | | [facility]IC[facility] [place] | [address] | | | | | [address] | [place] | | | | | [place], [place] | [address] | | | | | [address] | | | | | | [phone] | | | +--------+ + + + [...] the duplicate chart. Patient's actual chart is [id number] Thank you. doc umented in this encounter [...]
--- OUTSIDE RECORDS SUMMARY | ~2020-07-13 | XMS | Encounter Summary ---
Demographics + + + | Address | [address] [facility] [facility] [address] [facility] | | | [place] [address] | + + + | Home Phone [...] | | | | | [place] [address] | | + + + + + Care Team Providers + +------+ + | Care Remote Control Assembler Name | Role | Phone | [...] [address] | | | | | [address] [place], [place] | [place], [place] | | | | | [address] | [address] | | | | | [phone] | | | +--------+ + + + [...] GREEN | | | | | | [address] | | | | | | | | +--------+---------+ + + + documented as of this encounter Visit Diagnoses Not on filedocumented in this encounter"
--- OUTSIDE RECORDS SUMMARY | ~2020-07-13 | XMS | Encounter Summary ---
Demographics + + + | Address | [address] | | | [place] [address] | + + + | Home Phone | | + + + | Preferred Language | Unknown | + + + | Marital Status | Single | + + + | Oriental Orthodox Affiliation | Unknown | + + [...] [place]RIQUE | | | | | [place] [address] | | + + + + + Care Team Providers + +------+ + | Care Publications Designer Name | Role | Phone | + [...] | | | | glenoid | | [address] | | | | | labrum | | Phone: | | | | | lesion of | | [phone] | | | | | left | | Fax: | | | | | shoulder, | | [phone] | | | | | initial | [...] | | | | | | | [place] SHLDR | | | | | | | ARTHROSCOP,S | | | | | | | URG,REPAIR,S | | | | | | | LAP LESION | | | | | | | [place] SHLDR | | | | | | | ARTHROSCOP,S | | | | | | | URG,CAPSULOR | | | | | | | RHAPHY | | | +--------+--------+ + + + + Encounter Details +--------+ + + + + | Date | Type | Department | Care Team | Description | +--------+ + + + + | 10/08/ | [facility] | [facility] | Peng Murguia | | | 2016 | Encounter | MED CTR OR INTRA OP | J, DO [address] | | | | | [address] | [facility] [place] | | | | | [place] | [address] | | | | | [address] | [phone] | | | | | [phone] | | | +--------+ + + + [...] encounter Discharge Instructions Instructions BladePeng J, - 10/08/2016[facility] Post-op Instructions - Shoulder Surgery The following instructions are meant to guide you following any shoulder surgery until your first post-operative visit 7-12 days later. For any problems or questions, please call our office at [phone], Tuesday through Tuesday, 9:00 am - 5:00 [...] that you may have received from the [facility], advice from friends, family members, [employer] leaders, Hampton Creek[employer] store clerks, conchita carballo, Reyna, Dr. Nguyen, Dr. Peguero, sports heroes, etc. If unsure, please call our office. Thank you, Peng Murguia D.O. [facility] [address] [place] [address] documented in this encounter Medications at Time [...] about a 1 y ear ago at [facility] [employer] and did not experience relief. He had x-ray s and an MRI at [facility], ordered by Dr. Dudley. Review of Systems Constitutional: no fever and no chills. . The patient presents with complaints of left shoulder pain. Integumentary: no rashes and no skin lesions. Family History Mother Family history of Back problem Family history of hypertension (Z82.49) Current Meds Spironolactone-HCTZ 25-25 MG Oral Tablet; Take one tablet every morning for leg swelling; Therapy: [id number] to (Last Rx:[id number]) Requested for: [id number] Ordered Allergies Cephalexin CAPS Vitals Vitals Panel [...] labral repair 2. Left shoulder capsular plication BRIM WELT SEWING MACHINE OPERATOR: Shoshana Nazario PA-C ANESTHESIOLOGIST: Josr Arenas MD [...] around the anterior glenoid neck and a [place] was used to free up the anterior [...] were also included in this bite. An surgical assistant certified did a capsular shift by grasping the [...] [place] | | | | | | [address] | | | | | | | [...] | | | | NOREEN JACKSON MD ([id number]) | | | | | | on [...] + | [address] | [address] | [place] | [phone] | | [facility] | | [address] | | | - LABORATORY | | [...]
--- OUTSIDE RECORDS SUMMARY | ~2020-07-13 | XMS | Encounter Summary ---
Demographics + + + | Address | [address] | | | [place] [address] | + + + | Home Phone [...] Author + + + | Author | [facility] | | | and [place] | + + + | Organization | [facility] | | | [...] | | | | | [place] [address] | | + + + + + Care Team Providers + +------+ + | Care Dental Nurse Name | Role | Phone | + +------+ + | Chance Dudley MD | PCP | | + +------+ + Encounter Details +--------+ + + + + | Date | Type | Department | Care Team | Description | +--------+ + + + + | 09/03/ | Hospital | [facility] | Chance Dudley, | Chronic left | | 2016 | Encounter | MED CTR XRAY [address] | MD [address] | shoulder pain | | | | [place] | [place], [place] | | | | | [place] [address] | [address] | | | | | [phone] | | | | | | | [...] GREEN | | | | | | [id number] | | | | | | | [...] followed by a 1 cc injection of [id number] confirmed | | intra-articular positioning of the [...] [address] | [place] | [phone] | | [facility] | | [address] | | | - IMAGING | | [...]
--- OUTSIDE RECORDS SUMMARY | ~2020-07-13 | XMS | Encounter Summary ---
Demographics + + + | Address | [address] [facility] [facility] | | | [place] [address] | + + + | Home Phone [...] | | | | | [place] [address] | | + + + + + Care Team Providers + +------+ + | Care Orthopedic Physician Name | Role | Phone | + +------+ + | Chance Dudley MD | PCP | | + +------+ + Encounter Details +--------+ + + + + | Date | Type | Department | Care Team | Description | +--------+ + + + + | 06/13/ | Hospital | [facility] | Chance Dudley, | | | 2012 | Encounter | MED CTR DIETARY | [address] | | | | | [address] [place] | [place], [place] | | | | | [place] [address] | [address] | | | | | [phone] | | | +--------+ + + + [...] GREEN | | | | | | [id number] | | | | | | | | +--------+---------+ + + + documented as of this encounter Visit Diagnoses Not on filedocumented in this encounter"
--- OUTSIDE RECORDS SUMMARY | ~2020-07-13 | XMS | Encounter Summary ---
Demographics + + + | Address | [address] [facility] | | | [place] [address] | + + + | Home Phone [...] [place]QUE | | | | | [place] [address] | | + + + + + Care Team Providers + +------+ + | Care Client Service Professional Name | Role | Phone | + [...] + + | 05/18/ | Office | [facility] | Brooke Lauren | Acute suppurative | | 2016 | Visit | CARE [address] | Dewayne Gayle MD | otitis media of | | | | [place] | [address] | right ear without | | | | [address] | [place] | spontaneous rupture | | | | [phone] | [address] | of tympanic | | | | [...] GREEN | | | | | | [address] | | | | | | | [...]
--- OUTSIDE RECORDS SUMMARY | ~2020-07-13 | XMS | Encounter Summary ---
Demographics + + + | Address | [address] [facility] | | | [place] [address] | + + + | Home Phone [...] | | | | | [place] [address] | | + + + + + Care Team Providers + +------+ + | Care Commanding Officer Motorized Squad Name | Role | Phone | + [...] + + | 09/05/ | Office | [facility] | Santi Mckeon | Laceration of left | | 2018 | Visit | SURGERY [address] | MD [address] | hand without foreign | | | | [address]VE [place], [place] | [address] [place] | body, subsequent | | | | [address] | [place] [address] | encounter (Primary | | | | [phone] | [phone] | Dx); Closed fracture | | | [...] might be differ ent from the original. [facility] PROGRESS NOTE Primary Care Physician: Chance [...] Capsular Shift; Surgeon: Candie Murguia DO; Location: [facility] MAIN OR SLEEVE GASTROPLASTY 09/14/2018 [facility] CURRENT MEDICATIONS Current Outpatient Medications Medication Sig Dispense Refill acyclovir (ZOVIRAX) 400 MG tablet Take 400 mg by mouth 5 times daily. Multiple Vitamins-Minerals (BARIATRIC MULTIVITAMINS/IRON PO) Take 1 tablet by mouth Marika ly. Chewables. For post-bariatric surgery nystatin (MYCOSTATIN) [id number] UNIT/GM powder Apply 1 Application topically 2 [...]
--- OUTSIDE RECORDS SUMMARY | ~2020-07-13 | XMS | Encounter Summary ---
Demographics + + + | Address | [address] [facility] [facility] | | | [place] [address] | + + + | Home Phone [...] Author + + + | Author | [facility] | | | and [place] | + + + | Organization | [facility] | | | [...] [place] | | | | | [place] [address] | | + + + + + Care Team Providers + +------+ + | Care Merchandise Execution Leader Name | Role | Phone | + [...] + + | 09/18/ | Office | [facility] | Chance Dudley, | Chronic wound of | | 2012 | Visit | [facility] | [address] | extremity (Primary | | | | [address] | [place] | Dx); Prediabetes | | | | [place] | [address] | | | | | [address] | | | | | | [phone] | | | +--------+---------+ + + + [...] C) rectal, after two days on antibiotics 5656-9650 [place] [address]. All rights reserve d. This information is [...] - Appreciate Corine's assistance arranging appointment with Leg Assembler - Start home monitoring - Educated on [...] GRE[place] | | | | | | [phone] | | | | | | | [...]
--- OUTSIDE RECORDS SUMMARY | ~2020-07-13 | XMS | Encounter Summary ---
Demographics + + + | Address | [address] [facility] | | | [place] [address] | + + + | Home Phone [...] | | | | | [place] [address] | | + + + + + Care Team Providers + +------+ + | Care Market Director Name | Role | Phone | [...] | | | | CENTER [address] | [address] [place] | Dx); SOB (shortness | | | | [place], [place] | [place] [address] | of breath); Closed | | | | [address] | [phone] | fracture of multiple | | | | [phone] | | ribs with routine | | [...] | 0 | | | | (MYCOSTATIN) [id number] | topically 2 times | | | [...] Alex Garrido, - 019 5:27 PM PDT [facility] Emergency Department Encounter Note [address] [place] [address] PCP:Chance Dudley MD [phone] History ED Triage [...] Capsular Shift; Surgeon: Candie Murguia DO; Location: [facility] MAIN OR SLEEVE GASTROPLASTY 09/14/2018 [facility] Medications: ALTERNATIVE FINANCING SPECIALIST Home Medications Medication Sig acyclovir (ZOVIRAX) 400 [...] ly. Chewables. For post-bariatric surgery nystatin (MYCOSTATIN) [id number] UNIT/GM powder Apply 1 Application topically 2 [...] GREEN | | | | | | [address] | | | | | | | [...]
--- OUTSIDE RECORDS SUMMARY | ~2020-07-13 | XMS | Encounter Summary ---
Demographics + + + | Address | [address] [facility] | | | [place] [address] | + + + | Home Phone [...] | | | | | [place] [address] | | + + + + + Care Team Providers + +------+ + | Care Marine Steam Fitter Name | Role | Phone | + [...] Refill | | 2020 | | MEDICINE [place] | [address] | | | | | [address] | [place] | | | | | [place], [place] | [address] | | | | | [address] | | | | | | [phone] | | | +--------+--------+ + + + [...] GRE[place] | | | | | | [address] | | | | | | | | +--------+---------+ + + + documented as of this encounter Visit Diagnoses + + | Diagnosis | + + | Anxiety Anxiety state, unspecified | + + documented in this encounter"
--- OUTSIDE RECORDS SUMMARY | ~2020-07-13 | XMS | Encounter Summary ---
Demographics + + + | Address | [address] [facility] | | | [place] [address] | + + + | Home Phone [...] Author + + + | Author | [facility] | | | and [place] | + + + | Organization | [facility] | | [...] [place] | | | | | [place] [address] | | + + + + + Care Team Providers + +------+ + | Care Bread Racker Name | Role | Phone | + +------+ + | Chance Dudley MD | PCP | | + +------+ + Encounter Details +--------+ + + + + | Date | Type | Department | Care Team | Description | +--------+ + + + + | 08/09/ | Hospital | [facility] | Chance Dudley, | Chronic left hip | | 2016 | Encounter | MED CTR [facility] XRAY | MD [address] | pain | | | | [address] [place] | [place] | | | | | [place] | [address] | | | | | [address] | | | | | | [phone] | | | +--------+ + + + [...] | | | | | | [place] | | | | | | [id number] | | | | | | | [...] [address] | [place] | [phone] | | [facility] | | [address] | | | - IMAGING | | | | + + + + + documented in this encounter Visit Diagnoses + + | Diagnosis | + + | Chronic left hip pain Pain in joint, pelvic region and thigh | + + documented in this encounter"
--- OUTSIDE RECORDS SUMMARY | ~2020-07-13 | XMS | Encounter Summary ---
Demographics + + + | Address | [address] | | | [place] [address] | + + + | Home Phone | | + + + | Preferred Language | Unknown | + + + | Marital Status | Single | + + + | Church Affiliation | Unknown | + + + [...] MANRIQUE | | | | | [place] [address] | | + + + + + Care Team Providers + +------+ + | Care Clinical Administrative Coordinator Name | Role | Phone | [...] palmar arch | [address] [place] | [address] | | | | | of left | [place], [place] | [place], | | | | | hand, | [address] | [place] [address] | | | | | sequela | Phone: | Phone: | | | | | Left hand | [phone] | [phone] | | | | | weakness | Fax: | Fax: | | | | | Procedures | [phone] | [phone] | | | | | OT | [...] having weight loss surgery in July in [place] | + + + Encounter Details +--------+---------+ + + + | Date | Type | Department | Care Team | Description | +--------+---------+ + + + | 06/26/ | Office | [facility] | Chance Dudley, | Type 2 diabetes | | 2018 | Visit | [facility] [place] | [address] | mellitus without | | | | [address] | [place] | complication, | | | | [place] | [address] | without long-term | | | | [address] | | current use of | | | | [phone] | | insulin (HCC) | | | [...] need a lift. Resources The President s [place] on Fitness, Sports & Nutritionwww.fitness.gov Academy of Nutrition and Dieteticswww.eatright.org Healthfinderwww.healthfinder.gov Date Last Reviewed: 01/01/201619993029-[address] [employer] [place] [address]. All righ ts reserved. This information is [...] left hand, had a CT scan do va that showed gallstones.); Abdominal Pain (has "weird" stomach pains on the side.); and Ot her (having weight loss surgery in July in [place]) HPI In the ER last month he [...] has gastric b ypass surgery planned at [facility] for July - next [...] Unable to fully adduct his left pinky Fur Dry Cleaner Hand 4+/5 with left ring and pinky fingers Skin: Scar of palm of left hand Assessment & Plan: 1. Type 2 diabetes mellitus without complication, without long-term current use of insulin ([facility]): A1c borderline. BP controlled. Due for LDL. Vaccines UTD - Continue good work with diet, exercise, weight loss 2. 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 Dr Vicente's note reviewed - Continue testosterone - Labs today - FU with Dr Vicente as planned. Greatly appreciate his assistance 4. Obesity, morbid, BMI 40.0-49.9 ([facility]): Down 15 lbs since reestablishing with va 4 months ago - Continue good work with diet, exercise and weight loss - Gastric bypass surgery at [facility] as planned 5. Laceration of deep palmar arch of left hand, sequela, Left hand weakness: Dr Mckeon's note reviewed. Greatly appreciate his assistance - [facility] PT - * [facility] - AMB Referral 7. Calculus of gallbladder without cholecystitis without obstruction - Educated on warning signs - He will let [facility] surgeon's know that he [...] ST. | [address] | [place], [place] | [phone] | | [facility] | | [address] | | | - LABORATORY | | [...]
--- OUTSIDE RECORDS SUMMARY | ~2020-07-13 | XMS | Encounter Summary ---
Demographics + + + | Address | [address] | | | [place] [address] | + + + | Home Phone [...] MANRIQUE | | | | | [place] [address] | | + + + + + Care Team Providers + +------+ + | Care Training Lead Name | Role | Phone | [...] | | | | glenoid | | [address] | | | | | labrum | | Phone: | | | | | lesion of | | [phone] | | | | | left | | Fax: | | | | | shoulder, | | [phone] | | | | | initial | [...] | | | | | | | AR SHLDR | | | | | | | ARTHROSCOP,S | | | | | | | URG,REPAIR,S | | | | | | | LAP LESION | | | | | | | AR SHLDR | | | | | | [...] w/ | | | | [address] | [place], [place] | Labral Repair and | | | | [place], [place] | [address] | Capsular Shift | | | | [address] | [phone] | | | | | [phone] | | | +--------+---------+ + + + [...] Discharge Instructions Instructions Peng Murguia DO - 10/08/2016[facility] Post-op Instructions - Shoulder Surgery The following instructions are meant to guide you following any shoulder surgery until your first post-operative visit 7-12 days later. For any problems or questions, please call our office at [phone], Tuesday through Tuesday, 9:00 am - 5:00 [...] that you may have received from the [facility], advice from friends, family members, [employer] leaders, [employer], Inccery store clerks, conchita carballo, Reyna, Dr. Nguyen, Dr. Peguero, sports heroes, etc. If unsure, please call our office. Thank you, Peng Murguia D.O. [facility] [address] [place] [address] documented in this encounter Medications at Time [...] about a 1 y ear ago at [facility] [employer] and did not experience relief. He had x-ray s and an MRI at [facility], ordered by Dr. Dudley. Review of Systems Constitutional: no fever and no chills. . The patient presents with complaints of left shoulder pain. Integumentary: no rashes and no skin lesions. Family History Mother Family history of Back problem Family history of hypertension (Z82.49) Current Meds Spironolactone-HCTZ 25-25 MG Oral Tablet; Take one tablet every morning for leg swelling; Therapy: [id number] to (Last Rx:[id number]) Requested for: [id number] Ordered Allergies Cephalexin CAPS Vitals Vitals Panel [...] labral repair 2. Left shoulder capsular plication WEB DEVELOPMENT INTERN: Shoshana Nazario PA-C ANESTHESIOLOGIST: Josr Arenas MD [...] around the anterior glenoid neck and a [place] was used to free up the anterior [...] were also included in this bite. An teacher's assistant did a capsular shift by grasping [...] [place] | | | | | | [address] | | | | | | | [...] | | | | NOREEN JACKSON MD ([id number]) | | | | | | on [...] ST. | [address] | [place], [place] | [phone] | | [facility] | | [address] | | | - LABORATORY | | [...]
--- OUTSIDE RECORDS SUMMARY | ~2020-07-13 | XMS | Encounter Summary ---
Demographics + + + | Address | [address] | | | [place] [address] | + + + | Home Phone [...] | | | | | [place] [address] | | + + + + + Care Team Providers + +------+ + | Care Physical Sciences Instructor Name | Role | Phone | + +------+ + PCP | Unavailable | + +------+ + Encounter Details +--------+ + + + + | Date | Type | Department | Care Team | Description | +--------+ + + + + | 05/26/ | [facility] | [facility] | Stephen Prince | | | 2009 | Encounter | MED CTR EMERGENCY | MD [address] | | | | | [place] [address] | [address] [place] | | | | | [place] | [place] [address] | | | | | [address] | [phone] | | | | | [phone] | | | +--------+ + + + [...] [place] | | | | | | [address] | | | | | | | | +--------+---------+ + + + documented as of this encounter Visit Diagnoses Not on filedocumented in this encounter"
--- OUTSIDE RECORDS SUMMARY | ~2020-07-13 | XMS | Encounter Summary ---
Demographics + + + | Address | [address] | | | [place] [address] | + + + | Home Phone [...] MANRIQUE | | | | | [place] [address] | | + + + + + Care Team Providers + +------+ + | Care Primer And Powder Canning Leader Name | Role | Phone | + +------+ + | Chance Dudley MD | PCP | | + +------+ + Encounter Details +--------+ + + + + | Date | Type | Department | Care Team | Description | +--------+ + + + + | 10/26/ | Hospital | [facility] | Kenney Gomez, | Right leg | | 2012 | Encounter | MED CTR XRAY [address] | MD [address] | paresthesias | | | | [place] | [place], [place] | | | | | [place] [address] | [address] | | | | | [phone] | | | +--------+ + + + [...] | | | | | [place] | | | | | | [address] | | | | | | | [...] At | + + + | [facility] | [facility] | | Department [address] [place] [address] | [address] [facility] | | [ rep ct [address]] [ rep [facility] | | st zip] Signed | - IMAGING | | | | | Patient Name: STIVEN DAVILA Physician: | | | MEIR. : 1985 Age: 28 Sex: M Unit #: [id number] | | | Exam Date: 10/26/13 Location: [facility] [place] | | | Report #: [id number] Page: | | | %(RAD)RES..mtdd.print.filter("pg") of %(RAD) | | | RES..mtdd.print.filter("tpg") | | | | | | Accession Number: [id number] | | | RIGHT LOWER EXTREMITY DUPLEX [...] Dwayne Magana | | Sushant Ovalles MD10/27/13 9465 <Electronically signed by Dwayne Ovalles MD> | | | Dwayne Ovalles MD 10/26/13 [address] Worker: | | | Carole Goodrich10/26/13 4343 [place] MD | | + + + + + + + + | Performing | Address | City/State/Zipcode | Phone Number | | Organization | | | | + + + + + | [address] | [address] | [place] | [phone] | | [facility] | | [address] | | | - IMAGING | | | | + + + + + documented in this encounter Visit Diagnoses + + | Diagnosis | + + | Right leg paresthesias Disturbance of skin sensation | + + documented in this encounter
--- OUTSIDE RECORDS SUMMARY | ~2020-07-13 | XMS | Encounter Summary ---
Demographics + + + | Address | [address] | | | [place] [address] | + + + | Home Phone [...] MANRIQUE | | | | | [place] [address] | | + + + + + Care Team Providers + +------+ + | Care Pediatric Hospitalist Name | Role | Phone | + [...] | | | | | first | [address] | [place] [address] | | | | | metacarpal | Phone: | Phone: | | | | | bone of left | [phone] | [phone] | | | | | hand, | Fax: | Fax: | | | | | initial | [phone] | [phone] | | | | | encounter | | | +--------+ + + + + + Encounter Details +--------+ + + + + | Date | Type | Department | Care Team | Description | +--------+ + + + + | 07/04/ | Orders Only | [facility] | Sugar Polo MD | Closed nondisplaced | | 2019 | | SURGERY [address] | [address] [place] | fracture of neck of | | | | [place]VE [place], [place] | [place] [address] | first metacarpal | | | | [address] | [phone] | bone of left hand, | | | | [phone] | | initial encounter | | | [...] | | | | | [place] | | | | | | [address] | | | | | | | [...]
--- OUTSIDE RECORDS SUMMARY | ~2020-07-13 | XMS | Encounter Summary ---
Demographics + + + | Address | [address] | | | [place] [address] | + + + | Home Phone [...] | | | | | [place] [address] | | + + + + + Care Team Providers + +------+ + | Care Medical Sales Specialist Name | Role | Phone | [...] + | 03/29/ | Refill | [facility] | Chance Dudley, | Medication Refill | | 2018 | | [facility] [place] | [address] | | | | | [address] | [place] | | | | | [place] | [address] | | | | | [address] | | | | | | [phone] | | | +--------+--------+ + + + [...]
--- OUTSIDE RECORDS SUMMARY | ~2020-07-13 | XMS | Encounter Summary ---
Demographics + + + | Address | [address] | | | [place] [address] | + + + | Home Phone [...] Author + + + | Author | [facility] | | | and [place] | + + + | Organization | [facility] | | [...] | | | | | [place], [place] [address] | | + + + + + Care Team Providers + +------+ + | Care Miller Head Assistant Wet Process Name | Role | Phone | + [...] | | | [address] [place] | [place] [address] | | | | | [place] [address] | | | | | | [phone] | | | +--------+ + + + [...]
--- OUTSIDE RECORDS SUMMARY | ~2020-07-13 | XMS | Encounter Summary ---
Demographics + + + | Address | [address] | | | [place] [address] | + + + | Home Phone [...] Author + + + | Author | [facility] | | | and [place] | + + + | Organization | [facility] | | [...] | | | | | [place] [address] | | + + + + + Care Team Providers + +------+ + | Care Plating Tank Operator Apprentice Name | Role | Phone | + [...] Results | | 2018 | | MEDICINE [place] | [address] | | | | | [address] | [place], [place] | | | | | [place], [place] | [address] | | | | | [address] | | | | | | [phone] | | | +--------+ + + + [...]
--- OUTSIDE RECORDS SUMMARY | ~2020-07-13 | XMS | Encounter Summary ---
Demographics + + + | Address | [address] [facility] [address] | | | [place] [address] | + + + | Home Phone [...] Author + + + | Author | [facility] | | | and [place] | + + + | Organization | [facility] | | | [...] | | | | | [place] [address] | | + + + + + Care Team Providers + +------+ + | Care Distributor Sales Manager Name | Role | Phone [...] Refill | | 2019 | | MEDICINE [place] | [address] | | | | | [address] | [place] | | | | | [place], [place] | [address] | | | | | [address] | | | | | | [phone] | | | +--------+--------+ + + + [...] [place] | | | | | | [address] | | | | | | | | +--------+---------+ + + + documented as of this encounter Visit Diagnoses Not on filedocumented in this encounter"
--- OUTSIDE RECORDS SUMMARY | ~2020-07-13 | XMS | Encounter Summary ---
Demographics + + + | Address | [address] | | | [place] [address] | + + + | Home Phone [...] | | | | | [place] [address] | | + + + + + Care Team Providers + +------+ + | Care Brick Tosser Name | Role | Phone | + [...] + | 02/28/ | Telephone | [facility] | Chance Dudley, | Medication Prior | | 2018 | | [facility] | [address] | Authorization | | | | [address] | [place] | ([facility] ) | | | | [place] | [address] | | | | | [address] | | | | | | [phone] | | | +--------+ + + + [...] quest: Insurance name: [employer] phone: [phone] Medication and Strength: Testosteron 12.5 mg/1.25 g 1% gel Directions: Apply 4 actuations topically daily Quantity: 75 grams Diagnosis : Klinefelter syndrome Q98.4, Hypogonadism in male E29.1 Pharmacy: [facility] [place] [phone] Prior medications tried: New start Submitted through [...]
--- OUTSIDE RECORDS SUMMARY | ~2020-07-13 | XMS | Encounter Summary ---
Demographics + + + | Address | [address] | | | [place] [address] | + + + | Home Phone [...] Author + + + | Author | [facility] | | | and [place] | + + + | Organization | [facility] | | [...] | | | | | [place] [address] | | + + + + + Care Team Providers + +------+ + | Care Minister Name | Role | Phone | + [...] Results | | 2018 | | MEDICINE [place] | [address] | | | | | [address] | [place], [place] | | | | | [place], [place] | [address] | | | | | [address] | | | | | | [phone] | | | +--------+ + + + [...] [place] | | | | | | [id number] | | | | | | | | +--------+---------+ + + + documented as of this encounter Visit Diagnoses + + | Diagnosis | + + | Type 2 diabetes mellitus without complication, without long-term current use of | | insulin (HCC) | + + documented in this encounter"
--- OUTSIDE RECORDS SUMMARY | ~2020-07-13 | XMS | Encounter Summary ---
Demographics + + + | Address | [address] [facility] | | | [place] [address] | + + + | Home Phone [...] | | | | | [place] [address] | | + + + + + Care Team Providers + +------+ + | Care Global Product Manager Name | Role | Phone [...] Results | | 2012 | | MEDICINE [place] | [address] | | | | | [address] | [place], [place] | | | | | [place], [place] | [address] | | | | | [address] | | | | | | [phone] | | | +--------+ + + + [...]
--- OUTSIDE RECORDS SUMMARY | ~2020-07-13 | XMS | Encounter Summary ---
Demographics + + + | Address | [address] [facility] | | | [place] [address] | + + + | Home Phone [...] | | | | | [place] [address] | | + + + + + Care Team Providers + +------+ + | Care Manager Of International Name | Role | Phone | + [...] + + | 04/19/ | Office | [facility] | Nadia Claire, | Migraine without | | 2017 | Visit | [facility] [place] | [address] | aura and without | | | | [address] | [place], [place] | status migrainosus, | | | | [place], [place] | [address] | not intractable | | | | [address] | | (Primary Dx); | | | | [phone] | | Recurrent herpes | | | | | | labialis; Excessive | | | | | | thirst; Obesity, | | | | | | morbid, BMI | | | | | | 40.0-49.9 ([facility]); | | | | | [...] as aged cheese and wine), eyestrain, weather chvais ges, missed meals,or too little or too [...] before each headache. Show this to your [facility] provider to help find the cause of [...] Difficulty talking or seeing Date Last Reviewed: 06/28/201619997056-9629 [employer]. [address] [place] [address], [place] [id number]. All righ ts reserved. This information is [...] thirsty. She explains that he saw a certified endoscopy technician in the past for his impaired fasting [...] Social History Narrative Raised by mom in [place], [place]. Father not involved, drug addict. Lives with mom and younger brother. Children: None Schooling: HS graduate, required specialized education plan. A couple courses in college . He is on disability due to learning disability. Employment: Unemployed. Wants to work for "[employer] He completed the [employer] for it. He first needs to get [...] and when to seek medical attention. - Maxalt-agricultural technician 10 mg Take 1 tablet by mouth [...] 5 times daily for 5 days. [facility] sore outbreak Dispense: 25 [...] [place] | | | | | | [address] | | | | | | | [...] [address] | [place] | [phone] | | [facility] | | [address] | | | - LABORATORY | | [...]
--- OUTSIDE RECORDS SUMMARY | ~2020-07-13 | XMS | Encounter Summary ---
Demographics + + + | Address | [address] | | | [place] [address] | + + + | Home Phone [...] MANRIQUE | | | | | [place] [address] | | + + + + + Care Team Providers + +------+ + | Care Backbreaker Name | Role | Phone | + [...] + + | 12/02/ | Hospital | [facility] | Eric Almazan MD | [facility] | | 2019 - | Encounter | [facility] | [address] | (Primary Dx); | | | | [address] [place] | [place] | Hematemesis with | | | | [place] [address] | [address] | nausea; Learning | | 2019 | | [phone] | | disability; S/P | | | | | Joselito Wallace MD | laparoscopic sleeve | | | | | [address] | gastrectomy; | | | | | [place] | Klinefelter | | | | | [id number] | syndrome; | | | | | [...] information: [address] [place] [address] Discharge Medications New Medications Details ondansetron [...] mouth Daily. Chewables. For post-bariatric surgery nystatin 306504 UNIT/GM powder Apply 1 Application topically 2 times daily. aka: MYCOSTATIN testosterone 12.5 mg/1.25 g actuation (1%) gel Apply 4 Act topically Daily. Studies With Pending Results: None Less than 30 minutes were spent on discharge and coordination of post-hospital care. Electronically signed by: Anival Hightower MD, 12/04/2019 7:32 AM [facility] documented in this encounter Discharge [...] vomiting blood Date Last Reviewed: 05/28/2016 [employer] [address] [place] [address]. All righ ts reserved. This information is [...] be awakened Date Last Reviewed: 09/14/2016 [employer] [address] [place] [address]. All righ ts reserved. This information is [...] | 0 | | | | (MYCOSTATIN) 735022 | topically 2 times | | | [...] Khanna MD - 12/03/2019 4:10 PM PST [facility] [place] HOSPITALIST PROGRESS NOTE Patient: Stiven Davila : 1985: Age: 34 y.o. MedRec: [id number] Admission date: 12/02/2019 Hospital day # : [...] L/min Sugar Khanna MD 12/03/2019 4:10 PM [facility] documented in this enco unter H&P Notes Orellana, Keren Encarnacion MD - 12/03/2019 11:27 AM PSTFormatting of this note might be differe nt from the original. Inpatient Gastroenterology Consult Note Date of Service: 12/03/19 Chief Complaint: Emesis; GI Bleeding; and Chest Pain Referring Physician: MD OCTAVIA Providing Physician: Randy Valverde MD LOC[facility] History of Present Illness Stiven Isidro Davila [...] Capsular Shift; Surgeon: Candie Murguia DO; Location: [facility] MAIN OR SLEEVE GASTROPLASTY 09/14/2018 [facility] Family History Family History Problem Relation Age [...] Merged History Encounter Raised by mom in [place], [place]. Father not involved, drug addict. Lives with mom and younger brother. Children: None Schooling: HS graduate, required specialized education plan. A couple courses in college. 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 Employment: Unemployed. Wants to work for "[employer]." He completed the tra ining for it. [...] ly. Chewables. For post-bariatric surgery nystatin (MYCOSTATIN) 450667 UNIT/GM powder Apply 1 Application topically 2 [...] Daily. Chewables. For post-bariatric surgery nystatin (MYCOSTATIN) 560758 UNIT/GM powder Apply 1 Application topically 2 [...] Myers MD - 12/02/2019 5:03 PM PST [facility] [place] HOSPITALIST HISTORY & PHYSICAL Patient: Stiven Davila : 1985: Age: 34 y.o. MedRec: [id number] Admission date: 12/02/2019 Hospital day # : [...] Capsular Shift; Surgeon: Candie Murguia DO; Location: [facility] MAIN OR SLEEVE GASTROPLASTY 09/14/2018 [facility] FAMILY HISTORY: family history includes Diabetes in [...] by: Sugar Khanna MD 12/02/2019 5:03 PM [facility] documented in this enco unter Consult Notes Orellana, Keren Encarnacion MD - 12/03/2019 8:20 AM PSTFormatting of this note might be differe nt from the original. Inpatient Gastroenterology Consult Note Date of Service: 12/03/19 Chief Complaint: Emesis; GI Bleeding; and Chest Pain Referring Physician: DR. WALLACE Providing Physician: Randy Valverde MD [facility] History of Present Illness Stiven Davila is [...] Location: [facility] MAIN OR SLEEVE GASTROPLASTY 09/14/2018 [facility] Family History Family History Problem Relation Age [...] Merged History Encounter Raised by mom in [place]. Father not involved, drug addict. Lives with mom and younger brother. Children: None Schooling: HS graduate, required specialized education plan. A couple courses in college. 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 Employment: Unemployed. Wants to work for "[employer] He completed the [employer] for it. He first needs to get [...] ly. Chewables. For post-bariatric surgery nystatin (MYCOSTATIN) 202050 UNIT/GM powder Apply 1 Application topically 2 [...] medications. Pt was up at bedside with newscast director to urinate and reports that he is feeling very dizzy. MD notified. Electronically signed by Gloria Kingston RN at 12:14 PM Eric Rodriguez MD - 12/02/2019 11:14 AM PST [facility] Isidro Davila Emergency Department Encounter Note [address] [place] [address] PCP:Chance Dudley MD [phone] CHIEF COMPLAINT: Chief [...] Capsular Shift; Surgeon: Candie Murguia DO; Location: [facility] MAIN OR SLEEVE GASTROPLASTY 09/14/2018 [facility] CURRENT MEDICATIONS VISUAL PRESENTATION MANAGER Home Medications Medication Sig acyclovir (ZOVIRAX) 400 MG tablet take 1 tablet by mouth five times a day AT FIRST SIGN S OF COLD SORE OUTBREAK (Patient not taking: Reported on 12/02/2019) acyclovir (ZOVIRAX) 400 MG tablet Take 400 mg by mouth 5 times daily. Multiple Vitamins-Minerals (BARIATRIC MULTIVITAMINS/IRON PO) Take 1 tablet by mouth Marika ly. Chewables. For post-bariatric surgery nystatin (MYCOSTATIN) 864064 UNIT/GM powder Apply 1 Application topically 2 [...] Merged History Encounter Raised by mom in [place], [place]. Father not involved, drug addict. Lives with mom and younger brother. Children: None Schooling: HS graduate, required specialized education plan. A couple courses in college. 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 Employment: Unemployed. Wants to work for "[employer] He completed the [employer] ining for it. He first needs to [...] a gastric sleeve that was done at [facility]. Patient reports that he drank last night [...] Discussed the case with [place]. [place] [facility]. Recommended Protonix twice daily, that he [...] discharge plans. STIVEN reports he lives on [address] [address] with his mother Mabel. He reports the [place] [facility] [address] [place] entrance. No stairs inside the home. The bathroom has a tub shower. STIVEN reports being independent in his ADL's. He does not use any DME. His PCP is Dr Dudley and he uses the [facility] pharmacy. STIVEN's mother will transport him home when stable for discharge. Dispo: Home with mother, no needs Electronically signed by: Amy Almodovar 12/03/2019 3:44 PM -C Instructions Provati on - Keren Orellana MD - 12/03/2019 11:13 AM PSTDischarge Instructions for Upper End oscopy Patient: Stiven Davila : 1985 Acct: [id number] Exam Date: Tuesday, December 03, 2019 Doctor: [...] If unable to reach your physician, call Emergency Department at Ext. [phone] Your doctor [...] Medical Student - 12/03/2019 7:39 AM PST [facility] [place] Medical Student PROGRESS NOTE Patient: Stiven Davila : 1985: Age: 34 y.o. MedRec: [id number] Admission date: 12/02/2019 Hospital day # : [...] Inferior leads Confirmed by NOREEN JACKSON MD ([id number]) on 12/03/2019 6:33:55 AM CBC with Differential [...] Roderick Rios, Medical Student 12/03/2019 7:39 AM [facility] lan of [facility] - Chanell Luther RN - 12/03/2019 6:15 [...] PM PSTMr Davila is being admitted to [facility]. He is without distr ess on arrival. [...] [place] | | | | | | [id number] | | | | | | | [...] + +--------+ + + + | *TERMED* IN UPPER GI | Routin | 12/03/2019 | [...] d At | + +--------- -----+ | [facility] | [facility] | | [place] HospitalologyPatient Name: Stiven Davila | AMBIKA Cabrera | | michaelProcedure Date: 12/03/2019 11:13 AMN: [id number] | | | Number: [id number] of : 1985Note Status: | | | [...] | | 11:13 AMNumber of Addenda: 0 [facility] | | |Impression: | | [...] |Number of Addenda: 0 | | | [facility] | | + +--------- -----+ [...] mL/min/1.73m2 | [facility] | | | French | RATE,ESTIMATED | | MEDICAL | | | | mL/min/1.24t7Fdmt than | | CENTER - | | [...] [address] | [place] | [phone] | | [facility] | | [address] | | | - LABORATORY | | [...] [address] | [place] | [phone] | | [facility] | | [address] | | | - LABORATORY | | [...] | Correlation with endoscopic findings is recommended. NAL:[facility] [place]:C2NR | | | GROSS DESCRIPTION: The specimen, [...] LABORATORY: The technical component was performed by [facility] | | | [employer] [address] (Insurance Loss Adjuster: | | | Florinda Mueller MD; CLIA# [id number]). Professional interpretation was | | | performed by [employer] | | | [place] [address] (Insurance Loss Adjuster: Kimberton | | | Max Kang MD; CLIA# [id number]). Diagnostician: Kaelyn Martinez MD | | | [...] + | [facility] | [address] | [place] | [phone] | | [facility] | | [address] | | | - LABORATORY | | [...] ST. | [address] | [place], [place] | [phone] | | [facility] | | [address] | | | - LABORATORY | | [...] PORTABLE dated | | 12/02/2019 11:53 AMHISTORY: [facility] PAINComparison: 06/30/2019TECHNIQUE: A | | single portable [...] | | | | | | [employer] | | | | | [...] [address] | [place] | [phone] | | [facility] | | [address] | | | - LABORATORY | | [...] + | [facility] | [address] | [place] | [phone] | | [facility] | | [address] | | | - LABORATORY | | [...] | mL/min/1.73m2 | [facility] | | | French | RATE,ESTIMATED | | MEDICAL | | | | mL/min/1.45t5Mrzy than | | CENTER - | | [...] [address] | [place] | [phone] | | [facility] | | [address] | | | - LABORATORY | | [...] + | [facility] | [address] | [place] | [phone] | | [facility] | | [address] | | | - LABORATORY | | [...] MD | | | | | | ([id number]) on 12/03/2019 | | | | | [...]
--- OUTSIDE RECORDS SUMMARY | ~2020-07-13 | XMS | Encounter Summary ---
Demographics + + + | Address | [address] | | | [place] [address] | + + + | Home Phone [...] | | | | | [place] [address] | | + + + + + Care Team Providers + +------+ + | Care Lacquer Sprayer Name | Role | Phone | + [...] | 05/18/ | Emergency | [facility] | Malcom Arriola, | Alcoholic | | 2019 | | [facility] | MD [address] | intoxication without | | | | CENTER [address] | [place], [place] | complication (HCC) | | | | [place], [place] | [address] | (Primary Dx); | | | | [address] | | Chronic chest wall | | | | [phone] | | pain | +--------+ + + [...] sent through Care Everywhere.Chest Pain, Non cardiac ([place]orese)Alcohol Intoxication ([place]orese)documented in this encounter Medications at [...] | 0 | | | | (MYCOSTATIN) 705527 | topically 2 times | | | [...] after being found heavily intoxicated outside the [employer]. He was refusin g to get into [...] Capsular Shift; Surgeon: Candie Murguia DO; Location: [facility] MAIN OR SLEEVE GASTROPLASTY 09/14/[address] [facility] UPPER GASTROINTESTINAL ENDOSCOPY N/A 12/03/2019 Procedure: EGD; Surgeon: Keren Luna MD; Location: [facility] MEDICAL PROCEDURE UNIT CURRENT MEDICATIONS SLD EDUCATIONAL AIDE Home Medications Medication Sig acyclovir (ZOVIRAX) 400 [...] ly. Chewables. For post-bariatric surgery nystatin (MYCOSTATIN) 811934 UNIT/GM powder Apply 1 Application topically 2 [...] Merged History Encounter Raised by mom in [place], [place]. Father not involved, drug addict. Lives with mom and younger brother. Children: None Schooling: HS graduate, required specialized education plan. A couple courses in college. 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 Employment: Unemployed. Wants to work for "[employer]." He completed the tra [employer] for it. He first needs to get [...] Bilateral external ears normal, Oral mucosa moist, tool specialist ior pharynx no exudates, Nose normal. Neck-supple, [...] by me Rhythm: normal sinus Rate: normal [place]: normal Ectopy: none Conduction: normal ST Segments: [...] information: [address] [place] [address] Discharge Medication List as of 05/18/2020 1:56 [...] [place] | | | | | | [address] | | | | | | | [...] [address] | [place] | [phone] | | [facility] | | [address] | | | - LABORATORY | | [...] | 0.70 | 0.70 - 1.30 | [facility] | | | | | mg/dL | [facility] | | | | | | MEDICAL | | | | | | CENTER - | | | | | | LABORATORY | | + + + + + + | eGFR, | >60Comment: GLOMERULAR | >=60 | [facility] | | | non- | FILTRATION | mL/min/1.73m2 | [facility] | | | [place]ian | RATE,ESTIMATED | | MEDICAL | | | | mL/min/1.64y4Vtde than | | CENTER - | | [...] + | [facility] | [address] | [place], [place] | [phone] | | [facility] | | [address] | | | - LABORATORY | | [...] [address] | [place] | [phone] | | [facility] | | [address] | | | - LABORATORY | | [...] MD | | | | | | ([id number]) on 05/19/2020 | | | | | [...]
--- OUTSIDE RECORDS SUMMARY | ~2020-07-13 | XMS | Encounter Summary ---
Demographics + + + | Address | [address] | | | [place] [address] | + + + | Home Phone [...] | | | | | [place] [address] | | + + + + + Care Team Providers + +------+ + | Care Manager Restaurant Name | Role | Phone | + [...] + + | 04/08/ | Telephone | [facility] | Chance Dudley, | Shortness of Breath; | | 2019 | | [facility] [place] | [address] | Sternum Pain | | | | [address] | [place], [place] | | | | | [place], [place] | [address] | | | | | [address] | | | | | | [phone] | | | +--------+ + + + [...] which was his last visit with Stefan andrdae Scheduled to see Dr Dudley today.Electronically signed [...] [place] | | | | | | [id number] | | | | | | | | +--------+---------+ + + + documented as of this encounter Visit Diagnoses Not on filedocumented in this encounter
--- OUTSIDE RECORDS SUMMARY | ~2020-07-13 | XMS | Encounter Summary ---
Demographics + + + | Address | [address] | | | [place] [address] | + + + | Home Phone [...] Author + + + | Author | [facility] | | | and [place] | + + + | Organization | [facility] | | [...] [place]QUE | | | | | [place] [address] | | + + + + + Care Team Providers + +------+ + | Care Frame Stylist Name | Role | Phone | + +------+ + | Chance Dudley MD | PCP | | + +------+ + Encounter Details +--------+ + + + + | Date | Type | Department | Care Team | Description | +--------+ + + + + | 07/06/ | Hospital | [facility] | Dann Irvin I, | Chronic left | | 2016 | Encounter | [facility] | PA-C [address] | shoulder pain | | | | [address] [place] | [address] | | | | | [facility], [place] | [place] [address] | | | | | [address] | [phone] | | | | | [phone] | | | +--------+ + + + [...] GREEN | | | | | | [id number] | | | | | | | [...] ST. | [address] | [place], [place] | [phone] | | [facility] | | [address] | | | - IMAGING | | | | + + + + + documented in this encounter Visit Diagnoses + + | Diagnosis | + + | Chronic left shoulder pain Pain in joint, shoulder region | + + documented in this encounter"
--- OUTSIDE RECORDS SUMMARY | ~2020-07-13 | XMS | Encounter Summary ---
Demographics + + + | Address | [address] [facility] [address] | | | [place] [address] | + + + | Home Phone [...] MANRIQUE | | | | | [place] [address] | | + + + + + Care Team Providers + +------+ + | Care Retail Pharmacy Merchandiser Name | Role | Phone | + [...] + + | 08/09/ | Office | [facility] | Chance Dudley, | Chronic left | | 2016 | Visit | [facility] | [address] | shoulder pain | | | | [address] | [place] | (Primary Dx); | | | | [place] | [address] | Chronic left hip | | | | [address] | | pain; Prediabetes; | | | | [phone] | | Hypogonadism in | | | [...] reli ef, most recently last year at [facility]. No paresthesias, weakness. He's had left hip [...] or equal to 5YO preservative free IM [50[address]] Saurabh Dudley MD [employer] N - [...] GREEN | | | | | | [id number] | | | | | | | [...] mL/min/1.73m2 | [facility] | | | [facility] | RATE,ESTIMATED | | MEDICAL | | | | mL/min/1.39p1Bwjd than | | CENTER - | | [...] | | | | | mg/dL | [facility] | | | | | | MEDICAL | | | | | | CENTER - | | | | | | LABORATORY | | + + + + + + | Albumin | 3.7 | 3.2 - 5.0 g/dL | [facility] | | | | | | [facility] | | | | | | MEDICAL [...] + + | Performing | Address | City/State[facility] | Phone Number | | Organization | | | | + + + + + | [facility] | [address] | [place] | [phone] | | [facility] | | [address] | | | - LABORATORY | | [...] ST. | [address] | [place], [place] | [phone] | | [facility] | | [address] | | | - LABORATORY | | [...] of left hip. Femoral acetabular joint | [facility] | | relationships are normal. [...] [address] | [place] | [phone] | | [facility] | | [address] | | | - IMAGING | | [...]
--- OUTSIDE RECORDS SUMMARY | ~2020-07-13 | XMS | Encounter Summary ---
Demographics + + + | Address | [address] | | | [place] [address] | + + + | Home Phone [...] MANRIQUE | | | | | [place] [address] | | + + + + + Care Team Providers + +------+ + | Care Insurance Analyst Name | Role | Phone | [...] | 03/27/ | Office | [facility] | MaverickChance, | Klinefelter syndrome | | 2018 | Visit | [facility] [place] | [address] | (Primary Dx); | | | | [address] | [place], [place] | Migraine without | | | | [place], [place] | [address] | aura and without | | | | [address] | | status migrainosus, | | | | [phone] | | not intractable; | | | | | | Type 2 diabetes | | | | | | mellitus without | | | | | | complication, | | | | | | without long-term | | | | | | current use of | | | | | | insulin ([facility]); | | | | | | Hypogonadism [...] diet, activity and weight loss! Follow-up with [facility] as planned. Continue the testosterone as you are doing. Please stop by the lab for blood work in May. You need to be fasting - nothing to eat or drink other than water or black coffee for 10 hours. No alcohol for 24 hours. The labs at the [facility] ([address]) and at our special care hospital ([address]) are open 7 AM Tuesday-Tuesday. The [facility] lab is also open 8 AM-4 PM [...] and about more. He is meeting with make ready mechanic once per month through [facility]. He has appointment with [facility] bariatric group April 10. He continues to [...] | | | | | | [place] | | | | | | [id number] | | | | | | | [...] [address] | [place] | [phone] | | [facility] | | [address] | | | - LABORATORY | | [...] + | [facility] | [address] | [place] | [phone] | | [facility] | | [address] | | | - LABORATORY | | [...] [address] | [place] | [phone] | | [facility] | | [address] | | | - LABORATORY | | [...]
--- OUTSIDE RECORDS SUMMARY | ~2020-07-13 | XMS | Encounter Summary ---
Demographics + + + | Address | [address] | | | [place] [address] | + + + | Home Phone [...] | | | | | [place] [address] | | + + + + + Care Team Providers + +------+ + | Care Marketing Director Name | Role | Phone | [...] | Radiology | Diagnoses | Oct[place] | [facility] [address] | | | | | Chest pain, | Chance Brewster MD | [address] | | | | | unspecified | [address] | [place], | | | | | type SOB | [address] | [place] [address] | | | | | (shortness | [place], [place] | Phone: | | | | | of breath) | [address] | [phone] | | | | | Positive D | Phone: | Fax: | | | | | dimer | [phone] | [phone] | | | | | Procedures | Fax: | | | | | | CT Angiogram | [phone] | | | | | | Pulmonary [...] + + | 12/11/ | Office | [facility] | [facility], Chance Brewster, | [facility] | | 2020 | Visit | [facility] [place] | [address] | (Primary Dx); Acute | | | | [address] | [place], [place] | superficial | | | | [place], [place] | [address] | gastritis with | | | | [address] | | hemorrhage; Chest | | | | [phone] | | pain, unspecified | | | [...] touch Confusion Shallow breathing Date Last Reviewed: 03/06/201619999568-9531 [employer]. [address] [place] [address], [place] [address]. All righ ts reserved. This information is [...] by your healthcare provider Date Last Reviewed: 04/28/201819992955-3731 [employer]. [address] [place] [address], [place] [address]. All righ ts reserved. This information is [...] breathing since he was discharged a w [place] ago); Other (concerned that possibly the breathing [...] ~3 months ago. [facility] had [facility] but was released last [...] ly. Chewables. For post-bariatric surgery nystatin (MYCOSTATIN) 734469 UNIT/GM powder Apply 1 Application topically 2 [...] | | | | | [place] | | | | | | [address] | | | | | | | [...] + + + | [facility] | [address] | [place] | [phone] | | [facility] | | [address] | | | [facility] | | [...] | non- | FILTRATION | mL/min/1.73m2 | [facility] | | | [place] | RATE,ESTIMATED | | MEDICAL | | | | mL/min/1.47t6Xdad than | | [facility] | | | [...] + + + | [facility] | [address] [place] | [place] | [phone] | | [facility] | | [address] | | | [facility] | | | | + + + + + D-Dimer (12/11/2019 4:39 PM PST) + + + + + + | Component | Value | Ref Range | Performed | Pathologist | | | | | At | Signature | + + + + + + | D-Dimer | 0.64 (H)Comment: This | <=0.50 ug/mL | [facility] | | | Quantitativ | quantitative D-Dimer | FEU | [facility] | | | e | assay [...] [address] | [place] | [phone] | | [facility] | | [address] | | | - LABORATORY | | [...] - 1.030 | [facility] | | | [place], | | | [facility] | | [...] [address] | [place] | [phone] | | [facility] | | [address] | | | - LABORATORY | | [...]
[~2020-07-13 17:45] MED LIST: ULTRAM50 MG PO
[2020-07-13] MEDS ORDERED: DULOXETINE HCL30 MG PO (18:00)
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
--- NOTE | 2020-07-14 06:18 | NUR ---
SLEEPING OFF AND ON. NO C/O. HAS NOT VOIDED YET. MESSAGE WENT TO DR MCCOY.
--- NOTE | 2020-07-14 07:30 | NUR ---
report recieved. patient is restful in bed.
--- NOTE | 2020-07-14 07:40 | NUR ---
ASSSESSMENT DONE. C/O BURNING IN GI TRACK, HAS NUMBNESS IN LEFT LEG. STOOD AT BEDSIDE TO VOID. IS STABLE ON FEET. THEN BACK TO BED. TALKED WITH PATIENT ABOUT POC FOR DAY, IS UNDERSTANDING.
--- NOTE | 2020-07-14 08:30 | NUR ---
UPDATE REPORT GIVEN TO Alicia ORTEGA RN WHO IS TAKING OVER NURSING CARE.
[2020-07-14] MEDS ORDERED: DULOXETINE HCL60 MG PO (09:35)
--- NOTE | 2020-07-14 10:35 | NUR ---
SPOKE WITH PATIENT IN ROOM. PATIENT SITTING UP IN CHAIR. PATIENT STATES HE LIVES IN ON PROPERTY OF MOTHER. HE IS DISABLED. DOES NOT DRIVE OR WORK. MOTHER PROVIDES TRANSPORTATION TO SHOPPING, APPOINTMENTS. PATIENT DENIES PROBLEMS WITH AFFORDING MEDICATIONS, FOOD OR UTILITIES. STATES ALL HIS UTILITIES ARE PAID BY MOM. PATIENT STATES HE HAS A PCP IN [place], DR BA ALTHOUGH WANTS TO EVENTUALLY USE SOMEONE ELSE. DISCUSSED OPTIONS IN [place], STATES HE WANTS TO TALK WITH MOM ABOUT SOMEONE IN [place]. PATIENT DENIES HAVING SEEN MENTAL HEALTH IN PAST. PATIENT STATES HE FEELS SAFE TO RETURN HOME AT DISCHARGE. ASKED IF HE WAS "GOING TO BE ARRESTED BY [facility] WHEN HE LEAVES". DISCUSSED THIS IS NOT THE PLAN. DID DISCUSS THAT HE WILL BE ASKED TO FOLLOW UP WITH [facility] AFTER DISCHARGE. HE IS AGREEABLE WITH THIS. STATES HIS MOM CAN PICK HIM UP AT DISCHARGE. DISCUSSED THAT MIGHT BE IN A DAY OR MORE THEY FOLLOW HIS LABS TO MAKE SURE HIS IS DOING ALRIGHT FROM EFFECTS OF OVERDOSE. HE STATES UNDERSTANDING. PATIENT IS QUIET AND COOPERATIVE. DENIES NEEDS AT THIS TIME. HAS CALL LIGHT IN LAP.
--- NOTE | 2020-07-14 11:03 | NUR ---
Patient sitting up in chair. LR infusing at 125 mls/hr. 10mg of vitamin K given. Patient denies needs at this time, call light within reach.
--- NOTE | 2020-07-14 11:50 | NUR ---
Warfarin 5mg #60/30 day supply last filled 01/08/20. Duloxetine 60mg #90/90 day supply filled 05/23/20. Cyclobenzaprine 10mg #20 filled 02/19/20
--- NOTE | 2020-07-14 13:00 | NUR ---
PATIENT STATES HE CAN'T EAT. HAS BURNING IN GI TRACT. CONTINUES TO SIT IN CHAIR.
--- NOTE | 2020-07-14 13:53 | NUR ---
ALE FROM [facility] CALLED AND WANTED THE NURSE TO KNOW THAT TOMORROW June AT 11:00 A.M. THEY ARE GOING TO HAVE A MEETING WITH PATIENTS MOTHER, RN GYN AND A [facility] STAFF MEMBER TO COME UP WITH A SAFETY PLAN. ONCE A SAFE DISCHARGE IS WROTE UP, PATIENT SHOULD BE ABLE TO DISCHARGE HOME. (ALE)
--- NOTE | 2020-07-14 14:15 | NUR ---
MONITOR DC'D PATIENT TO BE TRANSFERRED TO MEDICAL FLOOR.
--- NOTE | 2020-07-14 15:10 | NUR ---
PT ARRIVED TO THE VIA WALKING FROM THE OTHER UNIT AT THIS TIME. PT INTO SHOWER UPON ARRIVAL.
--- NOTE | 2020-07-14 15:35 | NUR ---
THIS RN INTO PTS ROOM TO DO ASSESSMENT, GIVE MEDS, START FLUIDS, AND GET PT ON THE CARDIAC TELE. PT HAS A FLAT AFFECT. PT SITTING UP IN CHAIR AND IS COMPLIANT WITH CARE AT THIS TIME.
--- NOTE | 2020-07-14 15:55 | NUR ---
PATIENT WALKED OVER WITH COAT TAILOR FROM CCU. PATIENT SHOWERED IND AND IS NOW IN CHIAR. NEW PAPER SCRUBS PROVIDED. RN IN ROOM. CALL LIGHT IN REACH. NO FURTHER NEEDS AT THIS TIME.
--- NOTE | 2020-07-14 16:05 | NUR ---
RECEIVED CALL FROM MARTHA AT [facility] WHO STATES THEY ARE PLANNING ON CARE CONFERENCE WITH PATIENT TOMORROW TO INCLUDE PATIENT, MOM AND CASE MANAGEMENT HERE IF AVAILABLE IN ROOM AROUND 11AM. STAFF UPDATED.
--- NOTE | 2020-07-14 16:24 | NUR ---
AT 1445 PATIENT AMBULATED WITH NO ASSISTANCE TO ROOM 110. THERE WAS NO LIMP AND WAS STABLE. DENIED ANY DIZZINESS OR PAIN UPON ARRIVAL.
--- NOTE | 2020-07-14 16:34 | EKG ---
[facility] [address], [place] [address] Signed Normal sinus rhythm Normal ECG No previous ECGs available Confirmed by NICOLE MCCOY DO ([id number]) on 07/14/2020 4:33:57 PM Electronically Signed By: NICOLE MCCOY DO 07/14/20 1634 PATIENT NAME: ROHINI BATISTA Electrocardiogram DATE OF : [birth year] PHYSICIAN: NICOLE MCCOY DO REPORT #: [id number] REPORT IS CONFIDENTIAL AND NOT TO BE RELEASED WITHOUT AUTHORIZATION
--- NOTE | 2020-07-14 18:33 | NUR ---
PATIENT IN BED RESTING AND STILL WOKRING ON CLEAR LIQUID TRAY. CALL LIGHT IN REACH. NO FURTHER NEEDS AT THIS TIME.
--- NOTE | 2020-07-14 19:25 | NUR ---
BEDSIDE REPORT RECEIVED FROM OFFGOING RNMOUSTAPHA. PT SITTING UP IN BED. DENIES NEEDS. CALL LIGHT IN REACH. ROOM IN VIEW OF RN STATION.
--- NOTE | 2020-07-14 20:05 | NUR ---
V/S TAKEN AND CHARTED.
--- NOTE | 2020-07-14 20:13 | NUR ---
PT ASSESSMENT COMPLETE. PT WITH FLAT AFFECT. DENIES INTENT TO HARM HIMSELF PRESENTLY. PT REPORTS PAIN TO STOMACH AND THROAT, /, STATES THAT HE CAN, "STILL TASTE PESTICIDE." PT DENIES NAUSEA OR SOB. TELE # [address], SINUS LV, HR 50'S. PT REPORTS NUMBNESS TO LLE SINCE LAST EVENING. CMS INTACT. PT DENIES FURTHER NEEDS AT THIS TIME. LIGHTS TURNED DOWN. POC FOR THIS SHIFT DISCUSSED WITH PT. CALL LIGHT IN REACH. ROOM IN VIEW OF RN STATION.
--- NOTE | 2020-07-14 20:14 | PATH ---
[facility] [address] [place], [place] [address] Signed ORDERING PHYSICIAN: Radha Mcfadden MD PATIENT NAME: ROHINI BATISTA GENDER: Krystina : 1985 SPECIMEN(S): CLINICAL HISTORY: Routine Pap Smear MOLECULAR PATHOLOGY RESULTS: SARS-CoV-2 Not Detected ADDITIONAL NOTES.: The Sur[place] Fusion SARS-CoV-2 Assay is a multiplex real-time PCR (RT-PCR) in vitro diagnostic test intended for the qualitative detection of RNA from SARS-CoV-2 from individuals who meet COVID-19 clinical and/or epidemiological criteria. In general, SARS-CoV-2 RNA can be detected during the acute phase of infection. Positive results indicate the presence of SARS-CoV-2 RNA. Clinical correlation with patient history and other diagnostic information is necessary to determine patient infection status. Positive results do not rule out bacterial infection or co-infection with other viruses. Negative results do not preclude SARS-CoV-2 infection and should not be used as the sole basis for patient management decisions. Negative results must be combined with other clinical observations, patient history, and epidemiological information. The Sur[place] Fusion SARS-CoV-2 Assay is not yet approved or cleared by the [place] FDA. When there are no FDA-approved or cleared tests available, and other criteria are met, FDA can make tests available under an emergency access mechanism called an Emergency Use Authorization (EUA). The EUA for this test is supported by the [place] of Health and Human Service's (HHS's) declaration that circumstances exist to justify the emergency use of in vitro diagnostics for the detection and/or diagnosis of the virus that causes COVID-19. This EUA will remain in effect for the duration of the COVID-19 declaration justifying emergency of IVDs, unless it is terminated or revoked by FDA, after which the test may no longer be used. The Sur[place] Fusion SARS-CoV-2 Assay is for use only under EUA in US laboratories certified under the Clinical Laboratory Improvement PATIENT NAME: ROHINI BATISTA PATHOLOGY DATE OF : [birth year] REPORT #: [id number] PHYSICIAN: WAQAR PATHOLOGY PCP: CASH BA MD REPORT IS CONFIDENTIAL AND NOT TO BE RELEASED WITHOUT AUTHORIZATION [facility] [address] [place] [id number] Signed Amendments of 1988 (CLIA) to perform high complexity tests. [facility] is certified under CLIA to perform high complexity clinical laboratory testing. PERFORMING LABORATORY.: Molecular testing was performed by [facility] [address] [place], [place] [address], [place] [address] (Director Strategy: Justen Obrien D.O.; CLIA#: [id number]) Diagnostician: System Interface Pathologist Electronically Signed 07/14/2020 Copies: ~ PATIENT NAME: ROHINI BATISTA PATHOLOGY DATE OF : [birth year] REPORT #: [id number] PHYSICIAN: WAQRA HERNANDEZ PCP: CASH BA MD REPORT IS CONFIDENTIAL AND NOT TO BE RELEASED WITHOUT AUTHORIZATION
--- NOTE | 2020-07-14 22:15 | NUR ---
SPOKE WITH LORIE FROM [facility]. UPDATE PROVIDED REQUESTED.
--- NOTE | 2020-07-14 23:56 | NUR ---
PT RESTING IN BED WITH EYES CLOSED. RESPIRATIONS EVEN AND UNLABORED. PT APPEARS TO BE SLEEPING. DOES NOT WAKE WHILE DRAFTER CHIEF DESIGN AT DOORWAY. CALL LIGHT IN REACH. ROOM IN VIEW OF RN STATION.
--- NOTE | 2020-07-15 01:36 | NUR ---
PT ASSESSMENT COMPLETE. PT RESTING IN BED WITH EYES CLOSED. WAKES EASILY WHEN NURSES MEDICAL ASSISTANTS PHLEBOTOMISTS ENTERS THE ROOM. PT REPORTS THAT PAIN IS UNCHANGED FROM PREVIOUS ASSESSMENT. DENIES NAUSEA OR SOB. NUMBNESS TO LLE UNCHANGED FROM PREVIOUS ASSESSMENT. PT USED URINAL APPRORIATELY. DENIES NEEDS AT THIS TIME. CALL LIGHT IN REACH. ROOM IN VIEW OF RN STATION.
--- NOTE | 2020-07-15 05:25 | NUR ---
PT RESTING IN BED WITH EYES CLOSED. RESPIRATIONS EVEN AND UNLABORED. PT APPEARS TO BE SLEEPING. DOES NOT WAKE WHILE PERSONALIZED LIVING MANAGER AT DOORWAY. CALL LIGHT IN REACH. ROOM IN VIEW OF RN STATION.
--- NOTE | 2020-07-15 07:24 | NUR ---
PT SITTING UP IN BED AT TIME OF REPORT. DENIES NEEDS OR DISCOMFORTS, URINAL EMPTIED. CALL LIGHT IN REACH, ENCOURAGED TO CALL FOR NEEDS
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
--- NOTE | 2020-07-15 10:20 | NUR ---
PATIENT SITTING IN CHAIR. PATIENT REFUSED SHOWER AT THIS TIME. CALL LIGHT IN REACH. NO FURTHER NEEDS AT THIS TIME.
--- NOTE | 2020-07-15 10:50 | NUR ---
In and spoke with ROHINI for very short period. Yoana Telik present and interviewing pt. She has scheduled ROHINI for a follow up appt on Jul 19 at 2 pm with Daniel Umaña for assessment. Mom will be here at 11 pm to assist themt to complete a safety assessment. Spoke with Dr. Emerson and pt will remain overnight for further assessment.
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
--- NOTE | 2020-07-15 11:58 | NUR ---
PT AND HIS MOTHER MEET WITH [facility] STAFF TO DEVELOP SAFE DC PLAN FOR THIS PT
--- NOTE | 2020-07-15 13:55 | NUR ---
PT SITTING UP IN CHAIR FAMILY HAVE LEFT AFTER MEETING. HE DENIES ANY NEEDS. TV IS OFF PT JUST SITTING QUIETLY. OFFERED READING MATERIAL, PUZZLES, CARDS ETC. HE STATES HE HAS HIS PHONE DENIES WANT OF ANYTHING ELSE.
--- NOTE | 2020-07-15 14:06 | NUR ---
PATIENT SITTING IN CHAIR, CALL LIGHT IN REACH. NO NEEDS AT THIS TIME.
--- NOTE | 2020-07-15 14:35 | NUR ---
PT IS ALERT, MOTIONED ME INTO HIS RM. HE IS SITTING IN CHAIR, RATHER FLAT AFFECT, ANSWERS OPEN ENDED QUESTIONS WITH YES OR NO. SELDOM WOULD MAKE EYE CONTACT. PT DID SMILE WHEN GIVEN COMFORT AND ENCOUARAGEMENT. ACCEPTED COPY OF KATE. WILL FOLLOW NEEDED
--- NOTE | 2020-07-15 17:43 | NUR ---
PT CONTINUES UP IN CHAIR STATES HE BELIEVES HE WILL GO HOME TOMORROW. DENIES NAUSEA, OR ANY DISCOMFORTS. FRESH WATER AT CHAIR SIDE.
--- NOTE | 2020-07-15 17:59 | NUR ---
PATIENT SITTING IN CHAIR, RN IN ROOM. CALL LIGHT IN REACH. NO FURTHER NEEDS AT THIS TIME.
--- NOTE | 2020-07-15 19:55 | NUR ---
PATIENT SITTING UP IN THE BEDSIDE ARMCHAIR, PATIENT HAS NO NEEDS AT THIS TIME. CALL LIGHT IN REACH. REPORT FROM ABHINAV LALA.
--- NOTE | 2020-07-15 22:07 | NUR ---
PATIENT IN BED, DENIES SI, HAVING NO PAIN, AFFECT A BIT FLAT. VS STABLE. CALL LIGHT IN REACH.
--- NOTE | 2020-07-16 00:35 | NUR ---
PATIENT RESTING QUIETLY, EYES CLOSED, RESPIRATIONS REGULAR AND EVEN, CALL LIGHT IN REACH.
--- NOTE | 2020-07-16 02:32 | NUR ---
PATIENT RESTING QUIETLY, EYES CLOSED, RESPIRATIONS REGULAR AND EVEN, CALL LIGHT IN REACH.
--- NOTE | 2020-07-16 04:59 | NUR ---
PATIENT HAS RESTED ALL NIGHT, EYES CLOSED, RESPIRATIONS REGULAR AND EVEN, CALL LIGHT IN REACH. HAS BEEN SLEEPING UNLESS DISTURBED BY STAFF FOR ASSESSMENT.
--- NOTE | 2020-07-16 07:31 | NUR ---
MORNING ASSESSMENT DONE, PATIENT RESTING IN BED, DENIES WANTING TO EAT BREAKFAST. ASSESSMENT IS NORMAL OTHER THAT CHRONIC LUNG SOUNDS. PATIENT DENIES THOUGHTS OF HARMING SELF, DENIES OTHER NEEDS AT THIS TIME.
--- NOTE | 2020-07-16 09:10 | NUR ---
Spoke to ROHINI. He plans on dc today. Pins and needles in his leg are better. Discussed OP therapy for poor movement in arm. He states he will have a ride to OP when needed. I will fax his chart on dc to OP therapy. He will make his own appt.
--- NOTE | 2020-07-16 09:31 | NUR ---
PATIENT AWAKE AND ANXIOUS TO D/C. VITALS AND I&OS CHARTED. NO OTHER NEREDS AT THIS TIME
--- NOTE | 2020-07-16 13:01 | NUR ---
DC summary, PT/OT eval and assessment, face sheet faxed to OP with note showing pt dc to home today.
== END 2020-07-16 10:50 | disposition home or self-care (01) | DRG 917 ==
LOC: ED 17:45 → CCU 20:10 → ED 20:10 → CCU 07-14 01:20 → MS 07-14 15:10
PROVIDERS: ADMIT Student in an Organized Health Care Education/Training Program
DX: T60.2X2A Toxic effect of other insecticides, intentional self-harm, initial encounter (principal); I63.9 Cerebral infarction, unspecified; T45.512A Poisoning by anticoagulants, intentional self-harm, initial encounter; T48.1X2A Poisoning by skeletal muscle relaxants [neuromuscular blocking agents], intentional self-harm, initial encounter; Z20.828 Contact with and (suspected) exposure to other viral communicable diseases; R73.03 Prediabetes; F39 Unspecified mood [affective] disorder; G83.14 Monoplegia of lower limb affecting left nondominant side; Z86.711 Personal history of pulmonary embolism; Z79.899 Other long term (current) drug therapy
CPT/HCPCS: 36415; 70450; 70496; 70498; 80048; 80053; 80061; 80176; 81001; 83036; 83735; 84443; 85025; 85610; 86850; 86900; 86901; 93005; 93010; 97161; 97165; 99285-25; C9113; C9803; G0480; J3480; J7121; Q9967

== ENCOUNTER 2020-10-16 01:47 | Emergency (ER) | payer MEDICARE, OTHER ==
[~2020-10-16] VITALS: Ht 185.4 cm; Wt 124.7 kg
--- NOTE | ~2020-10-16 | EKG ---
[facility] [address], [place] [address] Draft EK completed, results pending confirmation PATIENT NAME: LESTERROHINI Bhakta Electrocardiogram DATE OF : [birth year] PHYSICIAN: PRELIMINARY REPORT #: [id number] REPORT IS CONFIDENTIAL AND NOT TO BE RELEASED WITHOUT AUTHORIZATION
[~2020-10-16 01:47] MED LIST changes: +DULOXETINE HCL30 MG PO; +DULOXETINE HCL60 MG PO
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
--- NOTE | 2020-10-16 12:38 | EKG ---
[facility] [address] [place] [address] Signed Normal sinus rhythm Normal ECG When compared with ECG of 16-OCT-2020 02:27, (Unconfirmed) Questionable change in QRS axis T wave inversion no longer evident in Inferior leads Confirmed by SHAGUFTA DESAI MD ([id number]) on 10/16/2020 12:38:24 PM Electronically Signed By: SHAGUFTA DESAI MD 10/16/20 1238 PATIENT NAME: LESTERROHINI Bhakta Electrocardiogram DATE OF : [birth year] PHYSICIAN: SHAGUFTA DESAI MD REPORT #: [id number] REPORT IS CONFIDENTIAL AND NOT TO BE RELEASED WITHOUT AUTHORIZATION
== END 2020-10-16 04:50 | disposition home or self-care (01) ==
LOC: ED 01:47
DX: R45.851 Suicidal ideations (principal); E66.9 Obesity, unspecified
CPT/HCPCS: 74022; 80053; 80176; 81001; 84443; 85025; 93005; 93010; 99285-25; G0480

== ENCOUNTER 2020-11-04 13:19 | Day surgery (SDC) | payer MEDICARE, OTHER ==
[~2020-11-04] VITALS: Ht 185.4 cm; Wt 122.5 kg
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
[2020-11-04] MEDS ORDERED: IBUPROFEN600 MG PO (13:38)
--- NOTE | 2020-11-04 16:53 | EKG ---
[facility] [address] [place] [address] Signed Sinus rhythm with occasional premature ventricular complexes Otherwise normal ECG When compared with ECG of 16-OCT-2020 03:33, premature ventricular complexes are now present T wave amplitude has decreased in Lateral leads Confirmed by JOHN WILLIS MD ([id number]) on 11/04/2020 4:52:55 PM Electronically Signed By: JOHN WILLIS MD 11/04/20 1653 PATIENT NAME: ROHINI BATISTA Electrocardiogram DATE OF : [birth year] PHYSICIAN: JOHN WILLIS MD REPORT #: [id number] REPORT IS CONFIDENTIAL AND NOT TO BE RELEASED WITHOUT AUTHORIZATION
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
--- NOTE | 2020-11-04 22:45 | NUR ---
PT NOW HAS A RIDE HOME AND WILL BE LEAVING SOON. RR IS WDL NOW AND PT DENIES ANY THOUGHT OF SELF HARM. NO NEW CONCERNS WERE NOTED.
--- NOTE | 2020-11-05 06:05 | OR ---
[facility] [address] [place], [place] [address] Signed DATE OF OPERATION: 11/04/2020 SURGEON: Bonita Hightower MD PREOPERATIVE DIAGNOSES: 1. Possible gastric foreign body (Tide and Clorox Pods). 2. Esophageal dysphagia. POSTOPERATIVE DIAGNOSIS: Unremarkable gastric sleeve anatomy. PROCEDURES: EGD with CLOtest and biopsy of the antrum. FINDINGS: No trauma or erythema whatsoever. INDICATIONS: ROHINI is a 35-year-old gentleman, who is mentally disabled and well known to our Local Police Department and our ER staff. The police went out to his property today to give him a traffic citation. 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 He lives alone in a trailer on their family property. He told the police manager he is going to hang himself and was making arrangements in the tree in the front yard. He then told the police manager he swallowed Tide Pods and Clorox bleach pods after poking holes in them. This all occurred around 12:15 today. He was brought to the emergency room by the ambulance and evaluated. I was called about at 05:30 this evening, asked to come to the emergency room to evaluate him for upper endoscopy. Our ER physician had called Poison Control and they felt strongly he needed an upper endoscopy to evaluate any possible damage to the esophagus or gastric sleeve. He was telling the ER staff that he was unable to swallow, but yet he seemed to be quite comfortable watching TV and of course he was clearly able to swallow his own saliva. I had met with ROHINI in the ER and I reviewed with him the above findings. He told me he has been through upper endoscopy before he had his gastric sleeve procedure at [facility] about age 31. He understands there is risk including, but not limited to gas bloating, crampy abdominal pain, bleeding, perforation requiring surgery, and missed diagnosis. In addition, we always asked an anesthesia provider to help us with increased monitoring and sedation with propofol in these situations. He had expressed understanding and wished to proceed. DESCRIPTION OF PROCEDURE: Electronically Signed By: BONITA HIGHTOWER MD 11/05/20 0605 PATIENT NAME: ROHINI BATISTA OPERATIVE REPORT DATE OF : 89 REPORT #: [id number] PHYSICIAN: BONITA HIGHTOWER MD PCP: CASH BA MD REPORT IS CONFIDENTIAL AND NOT TO BE RELEASED WITHOUT AUTHORIZATION [facility] [address] [place] [id number] Signed ROHINI was taken into our endoscopy suite and placed in the supine position under general endotracheal tube anesthesia. We all wore protective equipment, as his COVID test has just been done within minutes to bring him down to the endoscopy suite. The adult gastroscope was introduced and advanced under direct visualization of the camera. We found no erythema or damage whatsoever in the entire esophagus. The gastric sleeve, the antrum, pyloric channel or the duodenum itself out into the third portion. The scope was then slowly withdrawn back. We went ahead and took a biopsy of the antrum for pathologic review as well as CLOtest. The scope was withdrawn back up through the gastric sleeve in the esophagus. The gas was suctioned out and the gastroscope removed. ROHINI tolerated the procedure quite well. RECOMMENDATIONS: ROHINI will be discharged to home after he recovers. He can follow up with my office as needed. He will continue his routine followup with his primary care provider in the next 1 to 3 weeks. In addition, he should maintain his followup with [facility]. Bonita Hightower MD [facility] /[id number] cc: [facility] MD Bonita Orozco MD Copies: CASH BA MD, ANDREW L MD ~ Electronically Signed By: BONITA HIGHTOWER MD 11/05/2005 PATIENT NAME: ROHINI BATISTA OPERATIVE REPORT DATE OF : 89 REPORT #: [id number] PHYSICIAN: BONITA HIGHTOWER MD PCP: CASH BA MD REPORT IS CONFIDENTIAL AND NOT TO BE RELEASED WITHOUT AUTHORIZATION
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
== END 2020-11-04 23:10 | disposition home or self-care (01) ==
LOC: ED 13:19 → MS 13:24 → DS 18:42 → MS 18:43 → DS 23:10 → MS 23:10
PROVIDERS: ATTEND Colon & Rectal Surgery
PROC: 0DB78ZX Excision of Stomach, Pylorus, Via Natural or Artificial Opening Endoscopic, Diagnostic (ICD-10-PCS; principal; 2020-11-04 18:49)
DX: T54.92XA Toxic effect of unspecified corrosive substance, intentional self-harm, initial encounter (principal); T55.1X2A Toxic effect of detergents, intentional self-harm, initial encounter; T18.2XXA Foreign body in stomach, initial encounter; K21.9 Gastro-esophageal reflux disease without esophagitis; J45.909 Unspecified asthma, uncomplicated; F32.9 Major depressive disorder, single episode, unspecified; F41.9 Anxiety disorder, unspecified; F43.10 Post-traumatic stress disorder, unspecified; Z98.84 Bariatric surgery status; Z90.49 Acquired absence of other specified parts of digestive tract; Z88.1 Allergy status to other antibiotic agents; Z20.828 Contact with and (suspected) exposure to other viral communicable diseases
CPT/HCPCS: 80053; 80176; 81001; 82803; 84443; 85025; 86677; 93005; 93010; 99285-25; C9803; G0480; J0330; J1100; J1885; J2405; U0003

== ENCOUNTER 2020-11-06 17:18 | Emergency (ER) | payer MEDICARE, OTHER ==
[~2020-11-06] VITALS: Ht 185.4 cm; Wt 122.5 kg
[~2020-11-06 17:18] MED LIST changes: +IBUPROFEN600 MG PO
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
== END 2020-11-06 21:45 | disposition home or self-care (01) ==
LOC: ED 17:18
DX: R05 Cough (principal); Z20.828 Contact with and (suspected) exposure to other viral communicable diseases; Z13.30 Encounter for screening examination for mental health and behavioral disorders, unspecified; Z88.1 Allergy status to other antibiotic agents
CPT/HCPCS: 36415; 71046; 80053; 80176; 81001; 84443; 85025; 99283-25; C9803; G0480; U0003

== ENCOUNTER 2020-11-14 15:02 | Emergency (ER) | payer OTHER, MEDICARE ==
[~2020-11-14] VITALS: Ht 185.4 cm; Wt 122.5 kg
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
[2020-11-14] MEDS ORDERED: IBU600 MG PO (16:30)
== END 2020-11-14 17:05 | disposition home or self-care (01) ==
LOC: ED 15:02
DX: S06.9X9A Unspecified intracranial injury with loss of consciousness of unspecified duration, initial encounter (principal); S46.912A Strain of unspecified muscle, fascia and tendon at shoulder and upper arm level, left arm, initial encounter; V49.9XXA Car occupant (driver) (passenger) injured in unspecified traffic accident, initial encounter; Z88.1 Allergy status to other antibiotic agents
CPT/HCPCS: 70450; 73030; 99284-25